=== PATIENT | male | born 1985 | race Caucasian/White ===

== ENCOUNTER 2024-03-25 20:56 | Inpatient (IN) | payer OTHER, SELFPAY ==
--- NOTE | ~2024-03-25 | XR_ITS ---
EXAMINATION: XR ABDOMEN KUB CLINICAL INDICATION: distended abdomen, no BM in over 14 days COMPARISON: None available. TECHNIQUE: AP view of the abdomen. FINDINGS: The bowel gas pattern is normal with no evidence of ileus or obstruction. Large stool burden overall. No unusual soft tissue calcifications are noted. The bones are unremarkable. Visualized lung bases are clear. XR/XR KUB IMPRESSION: Large stool burden overall. Electronically signed by: Corin Escoto DO 04/25/2024 07:31 PM EST
[2024-03-25 22:16] VITALS: BMI 25.4
--- NOTE | 2024-03-26 00:56 | PC.ADMIT ---
Randall was admitted from [facility] for schizoaffective D/O and not caring for himself. His mother had brought him to the hospital for poor hygiene X's 1 year, a possible skin infection and non-compliance with medications. His mother, Chio Schultz, is listed as his legal guardian. Guardianship documentation is located in the patients chart. patient is alert and oriented X's 3 but has no insight as to the need to admission. Randall arrived on the unit and stated that he required a wheelchair or a walker because he can't walk . Patient ambulating very hunched over while leaning against the wall for support. Randall stated that he is walking like this because he is afraid he is going to fall and sustain a head injury. Randall was unable to accept redirection regarding safe ambulation. He repeatedly stated that if he wlks like this he is closer to the ground so if he falls he wont get hurt. when patient given a walker he declined it stating that he was afraid he would fall sideways. Randall is noted to have dry peeling flaky skin on his bilateral arms and trunk. He is noted to also have a large thick plaque to bilateral shins. patient oriented to unit, admission completed, patient placed on 15 minute safety checks
[2024-03-26 08:00] VITALS: BP 115/77; PULSE 78; RESP 16; TEMP 36.7; O2SAT 98
--- NOTE | 2024-03-26 08:58 | P.HPPS_ITS ---
HPI Date of Service: 03/26/24 Chief Complaint: Schizophrenia HPI Narrative: per outside hospital psychiatric evaluation, pt presented to the hospital 03/17 for inability to care of self due to paranoia/mental illness. pt's mother is his legal guardian, collateral was collected from her. she reported pt has not bathed in over a year; he remains in a single room in the house, never leaving it; he will not use the bathroom but rather defecates in bags and urinates in containers that mother must remove from the room; very poor PO intake with substantial weight loss. pt reported to hospital staff that he eats and drinks little, that he has not showered in over a year; that he cleans himself with soap and wet paper towels; that he hears voices telling him he's being poisoned. he reported to hospital staff that he has not been eating much in the past couple of weeks due to fear of being poisoned; he reported he has not showered in the past year because he does not feel it is safe; he reported he takes medication at home despite collateral from his mother indicating otherwise. per report, pt had been prescribed risperidone in the ED from the but was noted to be diverting it; he was observed more closely at administration times thereafter and better compliance was believed to have taken place. on interview with MD, pt averred his fear of being poisoned, as well as his fear that something ill might befall him in the shower, as well as his fear that he might fall when walking. he expressed some concern about side effects from the risperidone, but also indicated a willingness to take it. he reported difficulty in taking pills and expressed interest in M-tabs or solution. he stated he did not wish to be in the hospital and voiced no small irritation at the fact of his admission. MD indicated risperidone would be prescribed for now. Past Psychiatric History: hops: numerous prior no outpt providers no known h/o SA or SIB Dx: schizophrenia, OCD, agoraphobia Medical Evaluation Reviewed: Hospitalist Jeannie Pending [facility] Narrative: h/o left wrist Fx B/L LE lymphedema Social History: lives in his mother's home. not employed, single, never , no children. Substance History: denies all Diagnostics Vital Signs (24Hr): Vital Signs - 24 hr 03/26/24 08:00 Temperature 98.0 F Pulse Rate 78 Respiratory Rate 16 Blood Pressure 115/77 Pulse Oximetry 98 Oxygen Delivery Method Room Air BMI result Body Mass Index 25.4 Meds/Allergies Allergies Allergies Allergy/AdvReac Type Severity Reaction Status Date / Time Unable to Assess Allergy Verified 03/25/24 21:15 Mental Status Exam Mental Status Exam Narrative: unkempt, plaques on forearms, hair and franco overgrown and in disarray. [facility]. cooperative. no PMA/PMR. speech nml rate, amount, loudness, tone, latency. thoughts linear and illogical, paranoid delusions present. affect blunted, normo-intense, non-labile. mood mixed. denies SI/HI/VH. endorses hearing narrative content related to his life. Assessment & Plan Assessment & Plan (1) Schizophrenia: Status: Acute Code(s): F20.9 - Schizophrenia, unspecified Plan risperidone /. collateral from mother clarify legal circumstance/rolando's order Patient educated on: medication risk/benefits Reason for continued inpatient stay Substantial Risk for: inability to function Statement Statement: I have reviewed the history and physical and performed a pertinent examination on my patient. No changes have occurred unless specified. If the History and Physical was not performed prior to admission, the Hospitalist's service will be consulted for completing the admission physical. Time Spent With Patient Time: Total time managing care of this patient today __55__ minutes.
--- NOTE | 2024-03-26 11:55 | P.HPHOSP_ITS ---
History of Present Illness Date of Service: 03/26/24 Attending physician on admission: Madhu Rodriguez Chief Complaint: Limited function Randall Garcia is a 38 years old man with no significant past medical history has been admitted to the psychiatric unit due to paranoid behavior. Patient stated that he does not take daily medications other than risperdal for schizoaffective disorder and paranoia. He stated that his mom called the ambulance because she noted that he was not functioning well. He reported poor appetite. Did not report significant weight loss. He did not report any headache, chest pain, shortness on breath, abdominal pain, nausea, vomiting or diarrhea. There is no fevers chills reported. He does have chronic lower extremity swelling associated with scaly rash. He has been evaluated for DVT and has been negative. He has been told before that he might have psoriasis. He denied history of surgeries. Denied tobacco smoking, alcohol abuse or illicit drug use. Review of Systems 2 Review of Systems: All 12 systems were reviewed and normal except as noted in HPI. [facility] Social History Household Members: Family Housing: House Do you presently have visiting nurse or other home services: No Patient Tobacco Use Status: Never used Tobacco Use of substances other than those prescribed or required for medical reasons: No Have you been hit, kicked, punched, or otherwise hurt by someone within the past year? If so, by whom?: No Do you feel safe in your current relationship?: No Is there a partner from a previous relationship who is making you feel unsafe now?: No Are you made to feel afraid or neglected: No Advance Directives: No Advance Directives Information Provided: No How much weight loss: 2-13 pounds Eating poorly because of decreased appetite: Yes Poor oral hygiene: Yes Meds Allergies Allergy/AdvReac Type Severity Reaction Status Date / Time Unable to Assess Allergy Verified 03/25/24 21:15 Active Medications: Current Medications Acetaminophen (Acetaminophen 325 Mg Tablet) 650 mg PO Q6H PRN PRN Reason: Headache/Pain Mild Scale (1-3) Al Hydroxide/Mg Hydroxide (Magnesium Hydrox/Alum Hydrox 30 Ml Oral.Susp) 30 ml PO Q6H PRN PRN Reason: Heartburn/Nausea Hydroxyzine HCl (Hydroxyzine Hcl 25 Mg Tablet) 25 mg PO Q6H PRN PRN Reason: Anxiety Magnesium Hydroxide (Milk Of Magnesia 30 Ml Oral.Susp) 30 ml PO DAILY PRN PRN Reason: Constipation Metoprolol Succinate (Metoprolol Succinate Er 25 Mg Tab.Er.24h) 75 mg PO DAILY LENI; Protocol Nicotine Polacrilex (Nicotine Polacrilex 2 Mg Gum) 4 mg BUCCAL Q2H PRN PRN Reason: Nicotine Cravings Trazodone HCl (Trazodone Hcl 50 Mg Tablet) 50 mg PO BEDTIME MRX1 PRN PRN Reason: Insomnia Physical Exam 2 Vital Signs and Narrative: Vital Signs: Last Vital Signs Temp 98.0 F 03/26/24 08:00 Pulse 78 03/26/24 08:00 Resp 16 03/26/24 08:00 BP 115/77 03/26/24 08:00 Pulse Ox 98 03/26/24 08:00 O2 Del Method Room Air 03/26/24 08:00 BMI result Body Mass Index 25.4 Constitutional - Awake and Alert, No apparent distress. Pleasant. Cooperative. HEENT - PER, EOMI Heart - S1S2, RRR, No murmurs. Lungs - Normal lung expansion, Normal respiratory effort, No respiratory distress, CTA bilaterally Abdomen - Nontenderness. Extremities: Musculoskeletal - Normal inspection, normal ROM Skin - No pallor. No jaundice. Neurological - Alert & oriented x3, CN III-XII in tact, 5/5 strength BUE and BLE Psychological - Depressed affect Assessment and Plan (1) Scaly skin on examination: Status: Acute (2) Lower extremity edema: Status: Acute (3) Generalized weakness: Status: Acute Plan Randall Garcia is a 38 y/o man presents with: * Paranoia. Treatment per Psychiatry. * Lower extremity chronic edema and scaly skin changes, suspecting psoriasis. Check lower extremity venous ultrasound to assess for DVT, if normal we recommend follow as an outpatient with PCP for further treatment and investigation. * Generalized weakness associated with poor appetite. Check CBC, CMP, TSH and vitamin B12. Physiotherapy evaluation. Quality Stroke Does the patient have a stroke diagnosis?: No VTE Prior VTE?: No VTE Risk Level:: Medical - low VTE Device Contraindication: Treatment Not Indicated VTE Drug Contraindication: Treatment Not Indicated
[2024-03-26 19:51] VITALS: BP 115/80; PULSE 106; RESP 16; TEMP 36.7; O2SAT 96
[2024-03-27 08:00] VITALS: BP 125/80; PULSE 85; RESP 14; TEMP 36.5; O2SAT 98
--- NOTE | 2024-03-27 17:43 | HO.PSYCHPN ---
Subjective Subjective Date of Service: 03/27/24 Reason For Visit: Schizophrenia Subjective Notes: Costa Warning Interim History: does not appear to have moved from his chair in the milieu. MD inquires about this and needing to use the toilet; pt reports he has urinated in a cup which he has under his blanket. repeatedly states he wishes to be discharged home, where he will be more comfortable and more likely to eat and take medication and go to the bathroom to relieve himself (all contradicted by collateral in the admissions information). MD informs him he will be staying for further assessment.per staff, feeling congested. terrified of falling and hitting his head. refusing labs. refusing U/S. in same chair in milieu all NOC, slept in the chair about 1 hour. refusing medications. Mental Status Exam Mental Status Exam Narrative: unkempt, plaques on forearms, hair and franco overgrown and in disarray. [facility]. cooperative. no PMA/PMR. speech nml rate, amount, loudness, tone, latency. thoughts linear and illogical, paranoid delusions present. affect blunted, normo-intense, non-labile. mood anxious. no SI/HI/AVH expressed. Diagnostics Vital Signs (24Hr): Vital Signs - 24 hr 03/26/24 19:51 03/27/24 08:00 Temperature 98.0 F 97.7 F Pulse Rate 106 H 85 Respiratory Rate 16 14 Blood Pressure 115/80 125/80 Pulse Oximetry 96 98 Oxygen Delivery Method Room Air Room Air BMI result Body Mass Index 25.4 Medications Medications Current Medications Acetaminophen (Acetaminophen 325 Mg Tablet) 650 mg PO Q6H PRN PRN Reason: Headache/Pain Mild Scale (1-3) Al Hydroxide/Mg Hydroxide (Magnesium Hydrox/Alum Hydrox 30 Ml Oral.Susp) 30 ml PO Q6H PRN PRN Reason: Heartburn/Nausea Hydroxyzine HCl (Hydroxyzine Hcl 25 Mg Tablet) 25 mg PO Q6H PRN PRN Reason: Anxiety Magnesium Hydroxide (Milk Of Magnesia 30 Ml Oral.Susp) 30 ml PO DAILY PRN PRN Reason: Constipation Nicotine Polacrilex (Nicotine Polacrilex 2 Mg Gum) 4 mg BUCCAL Q2H PRN PRN Reason: Nicotine Cravings Risperidone (Risperidone Oral Kami 1 Mg/Ml Solution) 2 mg PO BEDTIME LENI Risperidone (Risperidone Oral Kami 1 Mg/Ml Solution) 1 mg PO DAILY LENI Last Admin: 03/27/24 08:41 Dose: Not Given Trazodone HCl (Trazodone Hcl 50 Mg Tablet) 50 mg PO BEDTIME MRX1 PRN PRN Reason: Insomnia Allergies Allergies Allergy/AdvReac Type Severity Reaction Status Date / Time Unable to Assess Allergy Verified 03/25/24 21:15 Assessment & Plan Assessment & Plan (1) Schizophrenia: Status: Acute Code(s): F20.9 - Schizophrenia, unspecified Plan 03/26: risperidone /2. collateral from mother. clarify legal circumstance/rolando's order. 03/27: refusing meds, not leaving his chair. urinating in cup beneath blanket. requesting immediate discharge. continue to offer medication. clarify legal circumstance and ability to involuntarily administer medication. costa warning provided. Reason for continued inpatient stay Substantial Risk for: inability to function and med/psych decompensation Time Spent With Patient Time: Total time managing care of this patient today ____ minutes.
[2024-03-27 21:02] VITALS: BP 126/82; PULSE 107; RESP 16; TEMP 36.6; O2SAT 99
[2024-03-28] MEDS: risperiDONE 1 MG TABLET PO (11:55)
--- NOTE | 2024-03-28 16:32 | HO.PSYCHPN ---
Subjective Subjective Date of Service: 03/28/24 Reason For Visit: Schizophrenia Subjective Notes: 3 Day Interim History: Sitting in chair in milieu. Per nursing, patient urinating in cups under blankets. Patient was notified that he must go to his room to use the toilet and can not urinate in common areas. Patient was able to walk down unit hallway with no assistance. Patient is requesting to have a wheelchair d/t being terrified of falling . Patient stated, I do not have any kind of condition. I am just worried about falling . Patient reports that he has not been eating much due to fear of being poisoned however, he would not elaborate as to who he believes is poisoning him. He reports at home he has been urinating in milk cartons and defecating in trash bags and having his mother dispose of these items. Patient agreed to take 1 mg of Risperdal PO; however, expressed paranoia towards RN about being a different medication/dosage despite being shown packaging. T/W obtained information from patient's mother, Chio; Chio reports patient has not been using the toilet for the past two years due to being afraid that snakes will get him and voices telling him the same. Chio reports, pt is also afraid of walking d/t fear of hitting his head. She reports patient has never been on antipsychotics and has only taken anti-anxiety medications for 3 weeks which patient discontinued. She denies history of inpatient psychiatric hospitalizations. She reports having guardianship due to patient being unable to care for self. Medication Compliance: Intermittent Side effects from medications: No Attending Groups: Intermittent Review of Systems Constitutional: Reports as per HPI Eyes: Reports as per HPI Reports as per HPI Cardiovascular: Reports as per HPI Respiratory: Reports as per HPI Gastrointestinal: Reports as per HPI Genitourinary: Reports as per HPI Musculoskeletal: Reports as per HPI Skin/Breast: Reports as per HPI Reports as per HPI Psychiatric: Reports as per HPI Endocrine: Reports as per HPI Hematologic/Lymphatic: Reports as per HPI Allergic/Immunologic: Reports as per HPI Mental Status Exam Mental Status Exam Patient Appearance: Disheveled Patient Orientation: Person, Place, Time and Situation Level of Consciousness: Awake and Alert Patient Behavior: Guarded and Good Eye Contact Mood Description: Blunted Affect Description: Blunted Ability to Follow Directions: Good Speech Pattern: Clear Delusions: Paranoid Ideation Judgement: Poor Diagnostics Vital Signs (24Hr): Vital Signs - 24 hr 03/27/24 21:02 Temperature 97.8 F Pulse Rate 107 H Respiratory Rate 16 Blood Pressure 126/82 Pulse Oximetry 99 Oxygen Delivery Method Room Air BMI result Body Mass Index 25.4 Medications Medications Current Medications Acetaminophen (Acetaminophen 325 Mg Tablet) 650 mg PO Q6H PRN PRN Reason: Headache/Pain Mild Scale (1-3) Al Hydroxide/Mg Hydroxide (Magnesium Hydrox/Alum Hydrox 30 Ml Oral.Susp) 30 ml PO Q6H PRN PRN Reason: Heartburn/Nausea Hydroxyzine HCl (Hydroxyzine Hcl 25 Mg Tablet) 25 mg PO Q6H PRN PRN Reason: Anxiety Magnesium Hydroxide (Milk Of Magnesia 30 Ml Oral.Susp) 30 ml PO DAILY PRN PRN Reason: Constipation Nicotine Polacrilex (Nicotine Polacrilex 2 Mg Gum) 4 mg BUCCAL Q2H PRN PRN Reason: Nicotine Cravings Risperidone (Risperidone Oral Kami 1 Mg/Ml Solution) 2 mg PO BEDTIME [facility] Last Admin: 03/27/24 21:00 Dose: Not Given Risperidone (Risperidone Oral Kami 1 Mg/Ml Solution) 1 mg PO DAILY [facility] Last Admin: 03/28/24 09:08 Dose: Not Given Trazodone HCl (Trazodone Hcl 50 Mg Tablet) 50 mg PO BEDTIME MRX1 PRN PRN Reason: Insomnia Allergies Allergies Allergy/AdvReac Type Severity Reaction Status Date / Time Unable to Assess Allergy Verified 03/25/24 21:15 Assessment & Plan Assessment & Plan (1) Schizophrenia: Status: Acute Code(s): F20.9 - Schizophrenia, unspecified Plan 03/26: risperidone 1/2. collateral from mother. clarify legal circumstance/rolando's order. 03/27: refusing meds, not leaving his chair. urinating in cup beneath blanket. requesting immediate discharge. continue to offer medication. clarify legal circumstance and ability to involuntarily administer medication. diamond warning provided. 03/28: Sitting in chair in milieu. Per nursing, patient urinating in cups under blankets. Patient was notified that he must go to his room to use the toilet and can not urinate in common areas. Patient was able to walk down unit hallway with no assistance. Patient is requesting to have a wheelchair d/t being terrified of falling . Patient stated, I do not have any kind of condition. I am just worried about falling . Patient reports that he has not been eating much due to fear of being poisoned however, he would not elaborate as to who he believes is poisoning him. He reports at home he has been urinating in milk cartons and defecating in trash bags and having his mother dispose of these items. Patient agreed to take 1 mg of Risperdal PO; however, expressed paranoia towards RN about being a different medication/dosage despite being shown packaging. T/W obtained information from patient's mother, Chio; Chio reports patient has not been using the toilet for the past two years due to being afraid that snakes will get him and voices telling him the same. Chio reports, pt is also afraid of walking d/t fear of hitting his head. She reports patient has never been on antipsychotics and has only taken anti-anxiety medications for 3 weeks which patient discontinued. She denies history of inpatient psychiatric hospitalizations. She reports having guardianship due to patient being unable to care for self. Patient educated on: diagnosis and medication risk/benefits Reason for continued inpatient stay Substantial Risk for: med/psych decompensation Time Spent With Patient Time: Total time managing care of this patient today _20___ minutes.
[2024-03-28 20:00] VITALS: BP 108/72; PULSE 100; RESP 16; TEMP 36.4; O2SAT 97
[2024-03-29 07:50] VITALS: BP 113/89; PULSE 90; RESP 16; TEMP 36.8; O2SAT 97
--- NOTE | 2024-03-29 10:29 | P.PNPSI_ITS ---
Subjective Subjective Date of Service: 03/29/24 Reason For Visit: Schizophrenia Subjective Notes: 3 Day Interim History: Observing pacing unit hallway, ambulating with no issue. Keeping to self. Covering self with blanket. Per nursing, pt slept in chair in milieu for 5 hours last night. Refused medications last night and this morning. Pt reports he does not want to sleep in a bed d/t feeling more vulnerable when laying down . Patient reports he does not want to go into the bathroom because he is paranoid that something might happen in there or someone might be waiting for me in there . Pt's 3 day up 03/30/24; he is requesting to be discharged home. Medication Compliance: No Attending Groups: No Review of Systems Constitutional: Reports as per HPI Eyes: Reports as per HPI Reports as per HPI Cardiovascular: Reports as per HPI Respiratory: Reports as per HPI Gastrointestinal: Reports as per HPI Genitourinary: Reports as per HPI Musculoskeletal: Reports as per HPI Skin/Breast: Reports as per HPI Reports as per HPI Psychiatric: Reports as per HPI Endocrine: Reports as per HPI Hematologic/Lymphatic: Reports as per HPI Allergic/Immunologic: Reports as per HPI Mental Status Exam Mental Status Exam Narrative: Pt is alert and oriented; behavior is guarded; dressed in hospital attire; mood is described as fine ; eye contact appropriate; Speech is normal rate, volume and not pressured; focused on discharge; paranoid; requesting to be discharged. Diagnostics Vital Signs (24Hr): Vital Signs - 24 hr 03/28/24 20:00 03/29/24 07:50 Temperature 97.5 F 98.3 F Pulse Rate 100 90 Respiratory Rate 16 16 Blood Pressure 108/72 113/89 Pulse Oximetry 97 97 Oxygen Delivery Method Room Air Room Air BMI result Body Mass Index 25.4 Medications Medications Current Medications Acetaminophen (Acetaminophen 325 Mg Tablet) 650 mg PO Q6H PRN PRN Reason: Headache/Pain Mild Scale (1-3) Al Hydroxide/Mg Hydroxide (Magnesium Hydrox/Alum Hydrox 30 Ml Oral.Susp) 30 ml PO Q6H PRN PRN Reason: Heartburn/Nausea Hydroxyzine HCl (Hydroxyzine Hcl 25 Mg Tablet) 25 mg PO Q6H PRN PRN Reason: Anxiety Magnesium Hydroxide (Milk Of Magnesia 30 Ml Oral.Susp) 30 ml PO DAILY PRN PRN Reason: Constipation Nicotine Polacrilex (Nicotine Polacrilex 2 Mg Gum) 4 mg BUCCAL Q2H PRN PRN Reason: Nicotine Cravings Risperidone (Risperidone Oral Kami 1 Mg/Ml Solution) 2 mg PO BEDTIME [facility] Last Admin: 03/28/24 23:12 Dose: Not Given Risperidone (Risperidone Oral Kami 1 Mg/Ml Solution) 1 mg PO DAILY [facility] Last Admin: 03/29/24 08:18 Dose: Not Given Trazodone HCl (Trazodone Hcl 50 Mg Tablet) 50 mg PO BEDTIME MRX1 PRN PRN Reason: Insomnia Allergies Allergies Allergy/AdvReac Type Severity Reaction Status Date / Time Unable to Assess Allergy Verified 03/25/24 21:15 Assessment & Plan Assessment & Plan (1) Schizophrenia: Status: Acute Code(s): F20.9 - Schizophrenia, unspecified Plan 03/26: risperidone /. collateral from mother. clarify legal circumstance/rolando's order. 03/27: refusing meds, not leaving his chair. urinating in cup beneath blanket. requesting immediate discharge. continue to offer medication. clarify legal circumstance and ability to involuntarily administer medication. diamond warning provided. 03/28: Sitting in chair in milieu. Per nursing, patient urinating in cups under blankets. Patient was notified that he must go to his room to use the toilet and can not urinate in common areas. Patient was able to walk down unit hallway with no assistance. Patient is requesting to have a wheelchair d/t being terrified of falling . Patient stated, I do not have any kind of condition. I am just worried about falling . Patient reports that he has not been eating much due to fear of being poisoned however, he would not elaborate as to who he believes is poisoning him. He reports at home he has been urinating in milk cartons and defecating in trash bags and having his mother dispose of these items. Patient agreed to take 1 mg of Risperdal PO; however, expressed paranoia towards RN about being a different medication/dosage despite being shown packaging. T/W obtained information from patient's mother, Chio; Chio reports patient has not been using the toilet for the past two years due to being afraid that snakes will get him and voices telling him the same. Chio reports, pt is also afraid of walking d/t fear of hitting his head. She reports patient has never been on antipsychotics and has only taken anti-anxiety medications for 3 weeks which patient discontinued. She denies history of inpatient psychiatric hospitalizations. She reports having guardianship due to patient being unable to care for self. 03/29: Observing pacing unit hallway. Keeping to self. Covering self with blanket. Per nursing, pt slept in chair in milieu for 5 hours last night. Refused medications last night and this morning. Pt reports he does not want to sleep in a bed d/t feeling more vulnerable when laying down . Patient reports he does not want to go into the bathroom because he is paranoid that something might happen in there or someone might be waiting for me in there . Pt's 3 day up 03/30/24; he is requesting to be discharged home. Patient educated on: diagnosis and medication risk/benefits Reason for continued inpatient stay Substantial Risk for: med/psych decompensation Time Spent With Patient Time: Total time managing care of this patient today _30___ minutes.
[2024-03-29 20:00] VITALS: RESP 16; TEMP 36.4
[2024-03-30 08:00] VITALS: BP 119/87; PULSE 100; RESP 16; TEMP 36.1; O2SAT 100
--- NOTE | 2024-03-30 09:03 | HO.PSYCHPN ---
Subjective Subjective Date of Service: 03/30/24 Reason For Visit: Schizophrenia Subjective Notes: 3 Day Interim History: Observed standing at nurses station throughout shift; not taking redirection from staff to please step away for pt confidentiality. Argumentative. 3 day up today; filed on; pt notified. Pt stated, you can't keep me here. I'm going to jose you and make your head spin 3 times! Your documents are not real! Refused Zyprexa. Per nursing, pt urinated in carton in unit hallway;continues to refuse utilizing bathroom. Per nursing, pt did not eat anything today. Medication Compliance: No Attending Groups: No Review of Systems Constitutional: Reports as per HPI Eyes: Reports as per HPI Reports as per HPI Cardiovascular: Reports as per HPI Respiratory: Reports as per HPI Gastrointestinal: Reports as per HPI Genitourinary: Reports as per HPI Musculoskeletal: Reports as per HPI Skin/Breast: Reports as per HPI Reports as per HPI Psychiatric: Reports as per HPI Endocrine: Reports as per HPI Hematologic/Lymphatic: Reports as per HPI Allergic/Immunologic: Reports as per HPI Mental Status Exam Mental Status Exam Narrative: Pt is alert and oriented; behavior is guarded; dressed in hospital attire, malodorous, urinating in carton in mileu; mood is described as fine ; eye contact appropriate; Speech is normal rate, volume and not pressured; focused on discharge; paranoid; requesting to be discharged. Diagnostics Vital Signs (24Hr): Vital Signs - 24 hr 03/29/24 20:00 03/30/24 08:00 Temperature 97.6 F 97 F Pulse Rate 100 Respiratory Rate 16 16 Blood Pressure 119/87 Pulse Oximetry 100 Oxygen Delivery Method Room Air BMI result Body Mass Index 25.4 Medications Medications Current Medications Acetaminophen (Acetaminophen 325 Mg Tablet) 650 mg PO Q6H PRN PRN Reason: Headache/Pain Mild Scale (1-3) Al Hydroxide/Mg Hydroxide (Magnesium Hydrox/Alum Hydrox 30 Ml Oral.Susp) 30 ml PO Q6H PRN PRN Reason: Heartburn/Nausea Hydroxyzine HCl (Hydroxyzine Hcl 25 Mg Tablet) 25 mg PO Q6H PRN PRN Reason: Anxiety Magnesium Hydroxide (Milk Of Magnesia 30 Ml Oral.Susp) 30 ml PO DAILY PRN PRN Reason: Constipation Nicotine Polacrilex (Nicotine Polacrilex 2 Mg Gum) 4 mg BUCCAL Q2H PRN PRN Reason: Nicotine Cravings Risperidone (Risperidone Oral Kami 1 Mg/Ml Solution) 2 mg PO BEDTIME [facility] Last Admin: 03/29/24 20:07 Dose: Not Given Risperidone (Risperidone Oral Kami 1 Mg/Ml Solution) 1 mg PO DAILY [facility] Last Admin: 03/30/24 08:38 Dose: Not Given Trazodone HCl (Trazodone Hcl 50 Mg Tablet) 50 mg PO BEDTIME MRX1 PRN PRN Reason: Insomnia Allergies Allergies Allergy/AdvReac Type Severity Reaction Status Date / Time Unable to Assess Allergy Verified 03/25/24 21:15 Assessment & Plan Assessment & Plan (1) Schizophrenia: Status: Acute Code(s): F20.9 - Schizophrenia, unspecified Plan 03/26: risperidone /. collateral from mother. clarify legal circumstance/rolando's order. 03/27: refusing meds, not leaving his chair. urinating in cup beneath blanket. requesting immediate discharge. continue to offer medication. clarify legal circumstance and ability to involuntarily administer medication. diamond warning provided. 03/28: Sitting in chair in milieu. Per nursing, patient urinating in cups under blankets. Patient was notified that he must go to his room to use the toilet and can not urinate in common areas. Patient was able to walk down unit hallway with no assistance. Patient is requesting to have a wheelchair d/t being terrified of falling . Patient stated, I do not have any kind of condition. I am just worried about falling . Patient reports that he has not been eating much due to fear of being poisoned however, he would not elaborate as to who he believes is poisoning him. He reports at home he has been urinating in milk cartons and defecating in trash bags and having his mother dispose of these items. Patient agreed to take 1 mg of Risperdal PO; however, expressed paranoia towards RN about being a different medication/dosage despite being shown packaging. T/W obtained information from patient's mother, Chio; Chio reports patient has not been using the toilet for the past two years due to being afraid that snakes will get him and voices telling him the same. Chio reports, pt is also afraid of walking d/t fear of hitting his head. She reports patient has never been on antipsychotics and has only taken anti-anxiety medications for 3 weeks which patient discontinued. She denies history of inpatient psychiatric hospitalizations. She reports having guardianship due to patient being unable to care for self. 03/29: Observing pacing unit hallway. Keeping to self. Covering self with blanket. Per nursing, pt slept in chair in milieu for 5 hours last night. Refused medications last night and this morning. Pt reports he does not want to sleep in a bed d/t feeling more vulnerable when laying down . Patient reports he does not want to go into the bathroom because he is paranoid that something might happen in there or someone might be waiting for me in there . Pt's 3 day up 03/30/24; he is requesting to be discharged home. 03/30: Observed standing at nurses station throughout shift; not taking redirection from staff to please step away for pt confidentiality. Argumentative. 3 day up today; filed on; pt notified. Pt stated, you can't keep me here. I'm going to jose you and make your head spin 3 times! Your documents are not real! Refused Zyprexa. Per nursing, pt urinated in carton in unit hallway;continues to refuse utilizing bathroom. Per nursing, pt did not eat anything today. Patient educated on: medication risk/benefits Reason for continued inpatient stay Substantial Risk for: med/psych decompensation Time Spent With Patient Time: Total time managing care of this patient today _30___ minutes.
--- NOTE | 2024-03-30 09:04 | PC.NURSE ---
Randall refused AM Risperidal, Susan Elias NP made aware
[2024-03-30 20:00] VITALS: BP 113/71; PULSE 121; RESP 16; TEMP 36.5; O2SAT 97
[2024-03-31 07:00] VITALS: BMI 25.4
[2024-03-31 07:43] VITALS: BP 112/76; PULSE 89; RESP 14; TEMP 36.6; O2SAT 98
--- NOTE | 2024-03-31 08:03 | HO.PSYCHPN ---
Subjective Subjective Date of Service: 03/31/24 Reason For Visit: Schizophrenia Subjective Notes: Section 7 Interim History: Reviewed with Dr. Lorenzana. Pacing in front of nurses station. disheveled, malodorous; encouraged to shower, however pt declined despite being offered shower chair and staff member to wait outside shower room if assistance is needed. Per nursing, pt urinated in cup and sensory room floor last evening. Pt continues to report paranoia regarding using bathroom; pt stated, I'm worried someone will be in the bathroom waiting for me because of who I am . When asked why he believes someone would want to hurt him; pt stated, I can't discuss that . denies SI/HI/VH/AH. He reports not eating d/t concerns that he may be poisoned by someone ; observed drinking water from water bottle. Pt offered Zyprexa PO per court ordered treatment plan; per nursing, pt initially refused then agreed to take. Medication Compliance: Intermittent Attending Groups: No Review of Systems Constitutional: Reports as per HPI Eyes: Reports as per HPI Reports as per HPI Cardiovascular: Reports as per HPI Respiratory: Reports as per HPI Gastrointestinal: Reports as per HPI Genitourinary: Reports as per HPI Musculoskeletal: Reports as per HPI Skin/Breast: Reports as per HPI Reports as per HPI Psychiatric: Reports as per HPI Endocrine: Reports as per HPI Hematologic/Lymphatic: Reports as per HPI Allergic/Immunologic: Reports as per HPI Mental Status Exam Mental Status Exam Narrative: Pt is alert and oriented; behavior is guarded; dressed in hospital attire, malodorous, urinating in carton in mileu; mood is described as fine ; eye contact appropriate; Speech is normal rate, volume and not pressured; focused on discharge; paranoid; requesting to be discharged. Diagnostics Vital Signs (24Hr): Vital Signs - 24 hr 03/30/24 20:00 03/31/24 07:43 Temperature 97.7 F 97.9 F Pulse Rate 121 H 89 Respiratory Rate 16 14 Blood Pressure 113/71 112/76 Pulse Oximetry 97 98 Oxygen Delivery Method Room Air Room Air BMI result Body Mass Index 25.4 Medications Medications Current Medications Acetaminophen (Acetaminophen 325 Mg Tablet) 650 mg PO Q6H PRN PRN Reason: Headache/Pain Mild Scale (1-3) Al Hydroxide/Mg Hydroxide (Magnesium Hydrox/Alum Hydrox 30 Ml Oral.Susp) 30 ml PO Q6H PRN PRN Reason: Heartburn/Nausea Hydroxyzine HCl (Hydroxyzine Hcl 25 Mg Tablet) 25 mg PO Q6H PRN PRN Reason: Anxiety Magnesium Hydroxide (Milk Of Magnesia 30 Ml Oral.Susp) 30 ml PO DAILY PRN PRN Reason: Constipation Nicotine Polacrilex (Nicotine Polacrilex 2 Mg Gum) 4 mg BUCCAL Q2H PRN PRN Reason: Nicotine Cravings Olanzapine (Olanzapine Odt 10 Mg Tab.Rapdis) 10 mg TRANSLINGU DAILY [facility] Last Admin: 03/30/24 10:42 Dose: Not Given Trazodone HCl (Trazodone Hcl 50 Mg Tablet) 50 mg PO BEDTIME MRX1 PRN PRN Reason: Insomnia Allergies Allergies Allergy/AdvReac Type Severity Reaction Status Date / Time Unable to Assess Allergy Verified 03/25/24 21:15 Assessment & Plan Assessment & Plan (1) Schizophrenia: Status: Acute Code(s): F20.9 - Schizophrenia, unspecified Plan 03/26: risperidone /. collateral from mother. clarify legal circumstance/rolando's order. 03/27: refusing meds, not leaving his chair. urinating in cup beneath blanket. requesting immediate discharge. continue to offer medication. clarify legal circumstance and ability to involuntarily administer medication. diamond warning provided. 03/28: Sitting in chair in milieu. Per nursing, patient urinating in cups under blankets. Patient was notified that he must go to his room to use the toilet and can not urinate in common areas. Patient was able to walk down unit hallway with no assistance. Patient is requesting to have a wheelchair d/t being terrified of falling . Patient stated, I do not have any kind of condition. I am just worried about falling . Patient reports that he has not been eating much due to fear of being poisoned however, he would not elaborate as to who he believes is poisoning him. He reports at home he has been urinating in milk cartons and defecating in trash bags and having his mother dispose of these items. Patient agreed to take 1 mg of Risperdal PO; however, expressed paranoia towards RN about being a different medication/dosage despite being shown packaging. T/W obtained information from patient's mother, Chio; Chio reports patient has not been using the toilet for the past two years due to being afraid that snakes will get him and voices telling him the same. Chio reports, pt is also afraid of walking d/t fear of hitting his head. She reports patient has never been on antipsychotics and has only taken anti-anxiety medications for 3 weeks which patient discontinued. She denies history of inpatient psychiatric hospitalizations. She reports having guardianship due to patient being unable to care for self. 03/29: Observing pacing unit hallway. Keeping to self. Covering self with blanket. Per nursing, pt slept in chair in milieu for 5 hours last night. Refused medications last night and this morning. Pt reports he does not want to sleep in a bed d/t feeling more vulnerable when laying down . Patient reports he does not want to go into the bathroom because he is paranoid that something might happen in there or someone might be waiting for me in there . Pt's 3 day up 03/30/24; he is requesting to be discharged home. 03/30: Observed standing at nurses station throughout shift; not taking redirection from staff to please step away for pt confidentiality. Argumentative. 3 day up today; filed on; pt notified. Pt stated, you can't keep me here. I'm going to jose you and make your head spin 3 times! Your documents are not real! Refused Zyprexa. Per nursing, pt urinated in carton in unit hallway;continues to refuse utilizing bathroom. Per nursing, pt did not eat anything today. 03/31: Pacing in front of nurses station. disheveled, malodorous; encouraged to shower, however pt declined despite being offered shower chair and staff member to wait outside shower room if assistance is needed. Per nursing, pt urinated in cup and sensory room floor last evening. Pt continues to report paranoia regarding using bathroom; pt stated, I'm worried someone will be in the bathroom waiting for me because of who I am . When asked why he believes someone would want to hurt him; pt stated, I can't discuss that . denies SI/HI/VH/AH. He reports not eating d/t concerns that he may be poisoned by someone ; observed drinking water from water bottle. Pt offered Zyprexa PO per court ordered treatment plan; per nursing, pt initially refused then agreed to take. Patient educated on: diagnosis and medication risk/benefits Reason for continued inpatient stay Substantial Risk for: med/psych decompensation Time Spent With Patient Time: Total time managing care of this patient today _20___ minutes.
[2024-03-31] MEDS: OLANZapine ODT 10 MG TAB.RAPDIS TRANSLINGU (14:43)
[2024-04-01 07:05] VITALS: BP 115/72; PULSE 76; RESP 14; TEMP 36.4; O2SAT 100
--- NOTE | 2024-04-01 13:41 | P.PNPSI_ITS ---
Subjective Subjective Date of Service: 04/01/24 Reason For Visit: Schizophrenia Subjective Notes: Section 7 Interim History: Reviewed with Dr. Lorenzana. Patient continues to stand or pace in front of nurses station. disheveled, malodorous; per nursing, pt urinated in trash in mileu last evening. T/W spoke to patient regarding using restroom on unit; pt continues to report concern that someone can try to kill me because of who I am and who my family is ; when asked why someone would hurt him. Pt stated, because we are well known in [place] and they may hurt me because of it ; pt unable to specify who they are. denies AH/VH. Pt was offered for staff member to examine restroom and stand outside to assure no one is waiting for him; however pt continues to decline. Patient stated, I feel like you guys are playing a psychotic game with me or that they are doing this for their entertainment . Attending Groups: No Review of Systems Constitutional: Reports as per HPI Eyes: Reports as per HPI Reports as per HPI Cardiovascular: Reports as per HPI Respiratory: Reports as per HPI Gastrointestinal: Reports as per HPI Genitourinary: Reports as per HPI Musculoskeletal: Reports as per HPI Skin/Breast: Reports as per HPI Reports as per HPI Psychiatric: Reports as per HPI Endocrine: Reports as per HPI Hematologic/Lymphatic: Reports as per HPI Allergic/Immunologic: Reports as per HPI Mental Status Exam Mental Status Exam Narrative: Pt is alert and oriented; behavior is guarded; dressed in hospital attire, malodorous, urinating in trash in mileu; mood is described as not ok ; eye contact appropriate; Speech is normal rate, volume and not pressured; focused on discharge; paranoid; requesting to be discharged. Diagnostics Vital Signs (24Hr): Vital Signs - 24 hr 04/01/24 07:05 Temperature 97.5 F Pulse Rate 76 Respiratory Rate 14 Blood Pressure 115/72 Pulse Oximetry 100 Oxygen Delivery Method Room Air BMI result Body Mass Index 25.4 Medications Medications Current Medications Acetaminophen (Acetaminophen 325 Mg Tablet) 650 mg PO Q6H PRN PRN Reason: Headache/Pain Mild Scale (1-3) Al Hydroxide/Mg Hydroxide (Magnesium Hydrox/Alum Hydrox 30 Ml Oral.Susp) 30 ml PO Q6H PRN PRN Reason: Heartburn/Nausea Benztropine Mesylate (Benztropine Mesylate 1 Mg Tablet) 1 mg PO DAILY PRN PRN Reason: Extrapyramidal Effects Haloperidol Lactate (Haloperidol Lactate 5 Mg/Ml Vial) 5 mg IM DAILY PRN PRN Reason: Psychosis Hydroxyzine HCl (Hydroxyzine Hcl 25 Mg Tablet) 25 mg PO Q6H PRN PRN Reason: Anxiety Magnesium Hydroxide (Milk Of Magnesia 30 Ml Oral.Susp) 30 ml PO DAILY PRN PRN Reason: Constipation Nicotine Polacrilex (Nicotine Polacrilex 2 Mg Gum) 4 mg BUCCAL Q2H PRN PRN Reason: Nicotine Cravings Olanzapine (Olanzapine Odt 10 Mg Tab.Rapdis) 5 mg TRANSLINGU DAILY@1500 LENI Trazodone HCl (Trazodone Hcl 50 Mg Tablet) 50 mg PO BEDTIME MRX1 PRN PRN Reason: Insomnia Allergies Allergies Allergy/AdvReac Type Severity Reaction Status Date / Time Unable to Assess Allergy Verified 03/25/24 21:15 Assessment & Plan Assessment & Plan (1) Schizophrenia: Status: Acute Code(s): F20.9 - Schizophrenia, unspecified Plan 03/26: risperidone /. collateral from mother. clarify legal circumstance/rolando's order. 03/27: refusing meds, not leaving his chair. urinating in cup beneath blanket. requesting immediate discharge. continue to offer medication. clarify legal circumstance and ability to involuntarily administer medication. diamond warning provided. 03/28: Sitting in chair in milieu. Per nursing, patient urinating in cups under blankets. Patient was notified that he must go to his room to use the toilet and can not urinate in common areas. Patient was able to walk down unit hallway with no assistance. Patient is requesting to have a wheelchair d/t being terrified of falling . Patient stated, I do not have any kind of condition. I am just worried about falling . Patient reports that he has not been eating much due to fear of being poisoned however, he would not elaborate as to who he believes is poisoning him. He reports at home he has been urinating in milk car tons and defecating in trash bags and having his mother dispose of these items. Patient agreed to take 1 mg of Risperdal PO; however, expressed paranoia towards RN about being a different medication/dosage despite being shown packaging. T/W obtained information from patient's mother, Chio; Chio reports patient has not been using the toilet for the past two years due to being afraid that snakes will get him and voices telling him the same. Chio reports, pt is also afraid of walking d/t fear of hitting his head. She reports patient has never been on antipsychotics and has only taken anti-anxiety medications for 3 weeks which patient discontinued. She denies history of inpatient psychiatric hospitalizations. She reports having guardianship due to patient being unable to care for self. 03/29: Observing pacing unit hallway. Keeping to self. Covering self with blanket. Per nursing, pt slept in chair in milieu for 5 hours last night. Refused medications last night and this morning. Pt reports he does not want to sleep in a bed d/t feeling more vulnerable when laying down . Patient reports he does not want to go into the bathroom because he is paranoid that something might happen in there or someone might be waiting for me in there . Pt's 3 day up 03/30/24; he is requesting to be discharged home. 03/30: Observed standing at nurses station throughout shift; not taking redir ection from staff to please step away for pt confidentiality. Argumentative. 3 day up today; filed on; pt notified. Pt stated, you can't keep me here. I'm going to jose you and make your head spin 3 times! Your documents are not real! Refused Zyprexa. Per nursing, pt urinated in carton in unit hallway;continues to refuse utilizing bathroom. Per nursing, pt did not eat anything today. 03/31: Pacing in front of nurses station. disheveled, malodorous; encouraged to shower, however pt declined despite being offered shower chair and staff member to wait outside shower room if assistance is needed. Per nursing, pt urinated in cup and sensory room floor last evening. Pt continues to report paranoia regarding using bathroom; pt stated, I'm worried someone will be in the bathroom waiting for me because of who I am . When asked why he believes someone would want to hurt him; pt stated, I can't discuss that . denies SI/HI/VH/AH. He reports not eating d/t concerns that he may be poisoned by someone ; observed drinking water from water bottle. Pt offered Zyprexa PO per court ordered treatment plan; per nursing, pt initially refused then agreed to take. 04/01: Patient continues to stand or pace in front of nurses station. disheveled, malodorous; per nursing, pt urinated in trash in [place] last evening. T/W spoke to patient regarding using restroom on unit; pt continues to report concern that someone can try to kill me because of who I am and who my family is ; when asked why someone would hurt him. Pt stated, because we are well known in [place] and they may hurt me because of it ; pt unable to specify who they are. denies AH/VH. Pt was offered for staff member to examine restroom and stand outside to assure no one is waiting for him; however pt continues to decline. Patient stated, I feel like you guys are playing a psychotic game with me or that they are doing this for their entertainment . Patient educated on: diagnosis, medication risk/benefits and therapeutic strategies Reason for continued inpatient stay Substantial Risk for: med/psych decompensation Time Spent With Patient Time: Total time managing care of this patient today _20___ minutes.
--- NOTE | 2024-04-01 15:22 | PC.NURSE ---
TW approached pt at [address] ordered 5mg olanzapine. Pt states, I'm too sedated. I haven't even talked to anyone today. Do I have to take it? Pt educated on Vasquez Order w/ little effect. Pt asked to wait a little bit . TW told pt she would reappraoch him w/ medications at 1600 at which point the pt would have to accept PO medication or receive IM Haldol per court order. Pt nodded in agreement. Will reattempt medicatin administration at 1600.
--- NOTE | 2024-04-01 15:35 | PC.NURSE ---
pt is demanding to see Vasquez order before accepting medication. lawn sprinkler installer informed TW the pt made the same demand yesterday and a copy was previously shown to the patient and would not be done again. Pt will be reapproached at 4pm with medication.
[2024-04-01] MEDS: OLANZapine ODT 10 MG TAB.RAPDIS 5 MG TRANSLINGU (16:23)
--- NOTE | 2024-04-01 16:23 | PC.NURSE ---
pt approached with TW, electronic equipment repairer, and 2 security officers. Pt reluctantly accepted PO olanzapine per court order and was compliant with mouth check
[2024-04-01 20:00] VITALS: RESP 16
--- NOTE | 2024-04-01 21:50 | PM.EVENT ---
Event Note Date of Service: 04/02/24 Event Note: Pt is a [id number] admitted to [facility] unit with hospitalist consult placed for treatment of pt's dermatologic condition which is likely psoriasis, as pictured below. Would treat with ammonium lactate cream bid applied only to thick yellow plaques on lower extremities. This should soften up the plaques so that they slough off in the shower. For other skin lesions, would suggest betamethasone cream bid. Pt should follow up outpatient with dermatology for formal diagnosis and long-term treatment options. Time Spent With Patient Time: Total time managing care of this patient today ____ minutes.
[2024-04-02 08:00] VITALS: BP 103/68; PULSE 88; RESP 18; TEMP 36.4; O2SAT 100
[2024-04-02] MEDS: Betamethasone Dip Aug 0.05% Cr 15 GM TUBE 1 APPL TOPICAL (08:46)
--- NOTE | 2024-04-02 09:00 | P.PNPSI_ITS ---
Subjective Subjective Date of Service: 04/02/24 Reason For Visit: Schizophrenia Subjective Notes: Section 7 Interim History: Reviewed with Dr. Lorenzana. Patient continues to present similar to days prior. He continues to report paranoia regarding using restroom, shower and eating. Pt stated, I urinated in the trash early in the morning ; he continues to state he will consider using restroom. Pt reports taking bites of breakfast this morning. denies any side effects from Zyprexa other than feeling tired; pt stated, I am feeling a bit calmer . Per nursing, pt slept in chair in [facility] for 7 hours last night. Medication Compliance: Yes Side effects from medications: No Attending Groups: No Review of Systems Constitutional: Reports as per HPI Eyes: Reports as per HPI Reports as per HPI Cardiovascular: Reports as per HPI Respiratory: Reports as per HPI Gastrointestinal: Reports as per HPI Genitourinary: Reports as per HPI Musculoskeletal: Reports as per HPI Skin/Breast: Reports as per HPI Reports as per HPI Psychiatric: Reports as per HPI Endocrine: Reports as per HPI Hematologic/Lymphatic: Reports as per HPI Allergic/Immunologic: Reports as per HPI Mental Status Exam Mental Status Exam Narrative: Pt is alert and oriented; behavior is calm, guarded; dressed in hospital attire, malodorous, urinating in trash in [facility]; mood is described as calmer ; eye contact appropriate; Speech is normal rate, volume and not pressured; focused on discharge; paranoid; requesting to be discharged. Diagnostics Vital Signs (24Hr): Vital Signs - 24 hr 04/01/24 20:00 Respiratory Rate 16 BMI result Body Mass Index 25.4 Medications Medications Current Medications Acetaminophen (Acetaminophen 325 Mg Tablet) 650 mg PO Q6H PRN PRN Reason: Headache/Pain Mild Scale (1-3) Al Hydroxide/Mg Hydroxide (Magnesium Hydrox/Alum Hydrox 30 Ml Oral.Susp) 30 ml PO Q6H PRN PRN Reason: Heartburn/Nausea Benztropine Mesylate (Benztropine Mesylate 1 Mg Tablet) 1 mg PO DAILY PRN PRN Reason: Extrapyramidal Effects Betamethasone Dipropion Augmented (Betamethasone Dip Aug 0.05% Cr 15 Gm Tube) 1 appl TOPICAL BID LENI; Protocol Last Admin: 04/02/24 08:46 Dose: 1 appl Haloperidol Lactate (Haloperidol Lactate 5 Mg/Ml Vial) 5 mg IM DAILY PRN PRN Reason: Psychosis Hydroxyzine HCl (Hydroxyzine Hcl 25 Mg Tablet) 25 mg PO Q6H PRN PRN Reason: Anxiety Lactic Acid (Ammonium Lactate 12 % Cream 140 Gm Tube) 1 appl TOPICAL BID PRN; Protocol PRN Reason: Dry, scaly skin Magnesium Hydroxide (Milk Of Magnesia 30 Ml Oral.Susp) 30 ml PO DAILY PRN PRN Reason: Constipation Nicotine Polacrilex (Nicotine Polacrilex 2 Mg Gum) 4 mg BUCCAL Q2H PRN PRN Reason: Nicotine Cravings Olanzapine (Olanzapine Odt 10 Mg Tab.Rapdis) 5 mg TRANSLINGU DAILY@1500 LENI Last Admin: 04/01/24 16:23 Dose: 5 mg Trazodone HCl (Trazodone Hcl 50 Mg Tablet) 50 mg PO BEDTIME MRX1 PRN PRN Reason: Insomnia Allergies Allergies Allergy/AdvReac Type Severity Reaction Status Date / Time Unable to Assess Allergy Verified 03/25/24 21:15 Assessment & Plan Assessment & Plan (1) Schizophrenia: Status: Acute Code(s): F20.9 - Schizophrenia, unspecified Plan 03/26: risperidone 1/2. collateral from mother. clarify legal circumstance/rolando's order. 03/27: refusing meds, not leaving his chair. urinating in cup beneath blanket. requesting immediate discharge. continue to offer medication. clarify legal circumstance and ability to involuntarily administer medication. diamond warning provided. 03/28: Sitting in chair in milieu. Per nursing, patient urinating in cups under blankets. Patient was notified that he must go to his room to use the toilet and can not urinate in common areas. Patient was able to walk down unit hallway with no assistance. Patient is requesting to have a wheelchair d/t being terrified of falling . Patient stated, I do not have any kind of condition. I am just worried about falling . Patient reports that he has not been eating much due to fear of being poisoned however, he would not elaborate as to who he believes is poisoning him. He reports at home he has been urinating in milk cartons and defecating in trash bags and having his mother dispose of these items. Patient agreed to take 1 mg of Risperdal PO; however, expressed paranoia towards RN about being a different medication/dosage despite being shown packaging. T/W obtained information from patient's mother, Chio; Chio reports patient has not been using the toilet for the past two years due to being afraid that snakes will get him and voices telling him the same. Chio reports, pt is also afraid of walking d/t fear of hitting his head. She reports patient has never been on antipsychotics and has only taken anti-anxiety medications for 3 weeks which patient discontinued. She denies history of inpatient psychiatric hospitalizations. She reports having guardianship due to patient being unable to care for self. 03/29: Observing pacing unit hallway. Keeping to self. Covering self with blanket. Per nursing, pt slept in chair in milieu for 5 hours last night. R efused medications last night and this morning. Pt reports he does not want to sleep in a bed d/t feeling more vulnerable when laying down . Patient reports he does not want to go into the bathroom because he is paranoid that something might happen in there or someone might be waiting for me in there . Pt's 3 day up 03/30/24; he is requesting to be discharged home. 03/30: Observed standing at nurses station throughout shift; not taking redirection from staff to please step away for pt confidentiality. Argumentative. 3 day up today; filed on; pt notified. Pt stated, you can't keep me here. I'm going to jose you and make your head spin 3 times! Your documents are not real! Refused Zyprexa. Per nursing, pt urinated in carton in unit hallway;continues to refuse utilizing bathroom. Per nursing, pt did not eat anything today. 03/31: Pacing in front of nurses station. disheveled, malodorous; encouraged to shower, however pt declined despite being offered shower chair and staff member to wait outside shower room if assistance is needed. Per nursing, pt urinated in cup and sensory room floor last evening. Pt continues to report paranoia regarding using bathroom; pt stated, I'm worried someone will be in the bathroom waiting for me because of who I am . When asked why he believes someone would want to hurt him; pt stated, I can't discuss that . denies SI/HI/VH/AH. He reports not eating d/t concerns that he may be poisoned by someone ; observed drinking water from water bottle. Pt offered Zyprexa PO per court ordered treatment plan; per nursing, pt initially refused then agreed to take. 04/01: Patient continues to stand or pace in front of nurses station. disheveled, malodorous; per nursing, pt urinated in trash in [place] last evening. T/W spoke to patient regarding using restroom on unit; pt continues to report concern that someone can try to kill me because of who I am and who my family is ; when asked why someone would hurt him. Pt stated, because we are well known in [place] and they may hurt me because of it ; pt unable to specify who they are. denies AH/VH. Pt was offered for staff member to examine restroom and stand outside to assure no one is waiting for him; however pt continues to decline. Patient stated, I feel like you guys are playing a psychotic game with me or that they are doing this for their entertainment . 04/02: Patient continues to present similar to days prior. He continues to report paranoia regarding using restroom, shower and eating. Pt stated, I urinated in the trash early in the morning ; he continues to state he will co nsider using restroom. Pt reports taking bites of breakfast this morning. denies any side effects from Zyprexa other than feeling tired; pt stated, I am feeling a bit calmer . Per nursing, pt slept in chair in [facility] for 7 hours last night. Will continue to build rapport. Patient educated on: diagnosis, medication risk/benefits and therapeutic strategies Reason for continued inpatient stay Substantial Risk for: med/psych decompensation Time Spent With Patient Time: Total time managing care of this patient today _20___ minutes.
[2024-04-02] MEDS: OLANZapine ODT 10 MG TAB.RAPDIS 5 MG TRANSLINGU (15:54)
[2024-04-02 21:00] VITALS: BP 104/74; PULSE 72; RESP 16; TEMP 36.4; O2SAT 100
--- NOTE | 2024-04-03 09:16 | P.PNPSI_ITS ---
Subjective Subjective Date of Service: 04/03/24 Reason For Visit: Schizophrenia Subjective Notes: Section 7 Interim History: Reviewed with Dr. Lorenzana. Patient continues to report paranoia regarding using restroom, shower and eating. Pt was offered single room d/t continuous urinating in [facility]; pt declined. Pt stated, I don't think a single room would help. I'm still having the same thoughts . Pt reports he has increased his fluid intake with water, juice and milk; however he continues to report only take a few bites of food. Medication Compliance: Intermittent Side effects from medications: No Attending Groups: No Review of Systems Constitutional: Reports as per HPI Eyes: Reports as per HPI Reports as per HPI Cardiovascular: Reports as per HPI Respiratory: Reports as per HPI Gastrointestinal: Reports as per HPI Genitourinary: Reports as per HPI Musculoskeletal: Reports as per HPI Skin/Breast: Reports as per HPI Reports as per HPI Psychiatric: Reports as per HPI Endocrine: Reports as per HPI Hematologic/Lymphatic: Reports as per HPI Allergic/Immunologic: Reports as per HPI Mental Status Exam Mental Status Exam Narrative: Pt is alert and oriented; behavior is calm, guarded; dressed in hospital attire, malodorous, urinating in trash in [facility]; mood is described as okay ; eye contact appropriate; Speech is normal rate, volume and not pressured; focused on discharge; paranoid; requesting to be discharged. Diagnostics Vital Signs (24Hr): Vital Signs - 24 hr 04/02/24 21:00 Temperature 97.5 F Pulse Rate 72 Respiratory Rate 16 Blood Pressure 104/74 Pulse Oximetry 100 Oxygen Delivery Method Room Air BMI result Body Mass Index 25.4 Medications Medications Current Medications Acetaminophen (Acetaminophen 325 Mg Tablet) 650 mg PO Q6H PRN PRN Reason: Headache/Pain Mild Scale (1-3) Al Hydroxide/Mg Hydroxide (Magnesium Hydrox/Alum Hydrox 30 Ml Oral.Susp) 30 ml PO Q6H PRN PRN Reason: Heartburn/Nausea Benztropine Mesylate (Benztropine Mesylate 1 Mg Tablet) 1 mg PO DAILY PRN PRN Reason: Extrapyramidal Effects Betamethasone Dipropion Augmented (Betamethasone Dip Aug 0.05% Cr 15 Gm Tube) 1 appl TOPICAL BID LENI; Protocol Last Admin: 04/02/24 23:43 Dose: Not Given Haloperidol Lactate (Haloperidol Lactate 5 Mg/Ml Vial) 5 mg IM DAILY PRN PRN Reason: Psychosis Hydroxyzine HCl (Hydroxyzine Hcl 25 Mg Tablet) 25 mg PO Q6H PRN PRN Reason: Anxiety Lactic Acid (Ammonium Lactate 12 % Cream 140 Gm Tube) 1 appl TOPICAL BID PRN; Protocol PRN Reason: Dry, scaly skin Magnesium Hydroxide (Milk Of Magnesia 30 Ml Oral.Susp) 30 ml PO DAILY PRN PRN Reason: Constipation Nicotine Polacrilex (Nicotine Polacrilex 2 Mg Gum) 4 mg BUCCAL Q2H PRN PRN Reason: Nicotine Cravings Olanzapine (Olanzapine Odt 10 Mg Tab.Rapdis) 5 mg TRANSLINGU DAILY@1500 LENI Last Admin: 04/02/24 15:54 Dose: 5 mg Trazodone HCl (Trazodone Hcl 50 Mg Tablet) 50 mg PO BEDTIME MRX1 PRN PRN Reason: Insomnia Allergies Allergies Allergy/AdvReac Type Severity Reaction Status Date / Time Unable to Assess Allergy Verified 03/25/24 21:15 Assessment & Plan Assessment & Plan (1) Schizophrenia: Status: Acute Code(s): F20.9 - Schizophrenia, unspecified Plan 03/26: risperidone /. collateral from mother. clarify legal circumstance/ro simon's order. 03/27: refusing meds, not leaving his chair. urinating in cup beneath blanket. requesting immediate discharge. continue to offer medication. clarify legal circumstance and ability to involuntarily administer medication. diamond warning provided. 03/28: Sitting in chair in milieu. Per nursing, patient urinating in cups under blankets. Patient was notified that he must go to his room to use the toilet and can not urinate in common areas. Patient was able to walk down unit hallway with no assistance. Patient is requesting to have a wheelchair d/t being terrified of falling . Patient stated, I do not have any kind of condition. I am just worried about falling . Patient reports that he has not been eating much due to fear of being poisoned however, he would not elaborate as to who he believes is poisoning him. He reports at home he has been urinating in milk cartons and defecating in trash bags and having his mother dispose of these items. Patient agreed to take 1 mg of Risperdal PO; however, expressed paranoia towards RN about being a different medication/dosage despite being shown packaging. T/W obtained information from patient's mother, Chio; Chio reports patient has not been using the toilet for the past two years due to being afraid that snakes will get him and voices telling him the same. Chio reports, pt is also afraid of walking d/t fear of hitting his head. She reports patient has never been on antipsychotics and has only taken anti-anxiety medications for 3 weeks which patient discontinued. She denies history of inpatient psychiatric hospitalizations. She reports having guardianship due to patient being unable to care for self. 03/29: Observing pacing unit hallway. Keeping to self. Covering self with blanket. Per nursing, pt slept in chair in milieu for 5 hours last night. Refused medications last night and this morning. Pt reports he does not want to sleep in a bed d/t feeling more vulnerable when laying down . Patient reports he does not want to go into the bathroom because he is paranoid that something might happen in there or someone might be waiting for me in there . Pt's 3 day up 03/30/24; he is requesting to be discharged home. 03/30: Observed standing at nurses station throughout shift; not taking redirection from staff to please step away for pt confidentiality. Argumentative. 3 day up today; filed on; pt notified. Pt stated, you can't keep me here. I'm going to jose you and make your head spin 3 times! Your documents are not real! Refused Zyprexa. Per nursing, pt urinated in carton in unit hallway;continues to refuse utilizing bathroom. Per nursing, pt did not eat anything today. 03/31: Pacing in front of nurses station. disheveled, malodorous; encouraged to shower, however pt declined despite being offered shower chair and staff member to wait outside shower room if assistance is needed. Per nursing, pt urinated in cup and sensory room floor last evening. Pt continues to report paranoia re garding using bathroom; pt stated, I'm worried someone will be in the bathroom waiting for me because of who I am . When asked why he believes someone would want to hurt him; pt stated, I can't discuss that . denies SI/HI/VH/AH. He reports not eating d/t concerns that he may be poisoned by someone ; observed drinking water from water bottle. Pt offered Zyprexa PO per court ordered treatment plan; per nursing, pt initially refused then agreed to take. 04/01: Patient continues to stand or pace in front of nurses station. disheveled, malodorous; per nursing, pt urinated in trash in [facility] last evening. T/W spoke to patient regarding using restroom on unit; pt continues to report concern that someone can try to kill me because of who I am and who my family is ; when asked why someone would hurt him. Pt stated, because we are well known in [place] and they may hurt me because of it ; pt unable to specify who they are. denies AH/VH. Pt was offered for staff member to examine restroom and stand outside to assure no one is waiting for him; however pt continues to decline. Patient stated, I feel like you guys are playing a psychotic game with me or that they are doing this for their entertainment . 04/02: Patient continues to present similar to days prior. He continues to report paranoia regarding using restroom, shower and eating. Pt stated, I urinated in the trash early in the morning ; he continues to state he will consider using restroom. Pt reports taking bites of breakfast this morning. denies any side effects from Zyprexa other than feeling tired; pt stated, I am feeling a bit calmer . Per nursing, pt slept in chair in [facility] for 7 hours last night. Will continue to build rapport. 04/03: Patient continues to report paranoia regarding using restroom, shower and eating. Pt was offered single room d/t continuous urinating in [facility]; pt declined. Pt stated, I don't think a single room would help. I'm still having the same thoughts . Pt reports he has increased his fluid intake with water, juice and milk; however he continues to report only take a few bites of food. Patient educated on: diagnosis, medication risk/benefits and therapeutic strategies Reason for continued inpatient stay Substantial Risk for: med/psych decompensation Time Spent With Patient Time: Total time managing care of this patient today _20___ minutes.
[2024-04-03] MEDS: OLANZapine ODT 10 MG TAB.RAPDIS 5 MG TRANSLINGU (15:29)
[2024-04-03 19:30] VITALS: BP 102/68; PULSE 105; RESP 18; TEMP 36.5; O2SAT 99
[2024-04-04] MEDS: OLANZapine ODT 10 MG TAB.RAPDIS 5 MG TRANSLINGU (15:03)
--- NOTE | 2024-04-04 19:10 | P.PNPSI_ITS ---
Subjective Subjective Date of Service: 04/04/24 Reason For Visit: Schizophrenia Subjective Notes: Section 7 Healthcare Proxy: No Guardianship: No Medical Problems Affecting Mental Status: No Interim History: In the milieu, with peers, some interaction with them, paranoia and fear appear present in pt's overall presentation. Pt asks about where his clothing is along with personal belongings and asks about discharge. He discussed medications and asks to decrease Olanzapine. We discussed increasing dosage which he declined at this time. Medication Compliance: Yes Side effects from medications: Yes (he reports sedative effect) Attending Groups: Intermittent Review of Systems Acute medical concerns: No Review of Systems Review of Systems denies Mental Status Exam Mental Status Exam Patient Appearance: Fatigued and Disheveled Patient Orientation: Person and Place Level of Consciousness: Alert Patient Behavior: Guarded, Talkative, Suspicious, Resistive to Care, Distractible and Good Eye Contact Mood Description: Blunted Affect Description: Blunted Patient Cognition Impaired: No Ability to Follow Directions: Fair Speech Pattern: Spontaneous Speech Memory Description: Episodic Impaired Delusions: Paranoid Ideation and Present Thought Process: Distracted and Goal Oriented Thought Content: positive for Circumstantial Depressive Symptoms: Thoughts of /Suicide (denies) Judgement: Poor Diagnostics Vital Signs (24Hr): Vital Signs - 24 hr 04/03/24 19:30 Temperature 97.7 F Pulse Rate 105 H Respiratory Rate 18 Blood Pressure 102/68 Pulse Oximetry 99 Oxygen Delivery Method Room Air BMI result Body Mass Index 25.4 Medications Medications Current Medications Acetaminophen (Acetaminophen 325 Mg Tablet) 650 mg PO Q6H PRN PRN Reason: Headache/Pain Mild Scale (1-3) Al Hydroxide/Mg Hydroxide (Magnesium Hydrox/Alum Hydrox 30 Ml Oral.Susp) 30 ml PO Q6H PRN PRN Reason: Heartburn/Nausea Benztropine Mesylate (Benztropine Mesylate 1 Mg Tablet) 1 mg PO DAILY PRN PRN Reason: Extrapyramidal Effects Betamethasone Dipropion Augmented (Betamethasone Dip Aug 0.05% Cr 15 Gm Tube) 1 appl TOPICAL BID [facility]; Protocol Last Admin: 04/04/24 08:49 Dose: Not Given Haloperidol Lactate (Haloperidol Lactate 5 Mg/Ml Vial) 5 mg IM DAILY PRN PRN Reason: Psychosis Hydroxyzine HCl (Hydroxyzine Hcl 25 Mg Tablet) 25 mg PO Q6H PRN PRN Reason: Anxiety Lactic Acid (Ammonium Lactate 12 % Cream 140 Gm Tube) 1 appl TOPICAL BID PRN; Protocol PRN Reason: Dry, scaly skin Magnesium Hydroxide (Milk Of Magnesia 30 Ml Oral.Susp) 30 ml PO DAILY PRN PRN Reason: Constipation Nicotine Polacrilex (Nicotine Polacrilex 2 Mg Gum) 4 mg BUCCAL Q2H PRN PRN Reason: Nicotine Cravings Olanzapine (Olanzapine Odt 10 Mg Tab.Rapdis) 5 mg TRANSLINGU DAILY@1500 LENI Last Admin: 04/04/24 15:03 Dose: 5 mg Trazodone HCl (Trazodone Hcl 50 Mg Tablet) 50 mg PO BEDTIME MRX1 PRN PRN Reason: Insomnia Allergies Allergies Allergy/AdvReac Type Severity Reaction Status Date / Time Unable to Assess Allergy Verified 03/25/24 21:15 Assessment & Plan Assessment & Plan (1) Schizophrenia: Status: Acute Code(s): F20.9 - Schizophrenia, unspecified Plan 03/26: risperidone /. collateral from mother. clarify legal circumstance/rolando's order. 03/27: refusing meds, not leaving his chair. urinating in cup beneath blanket. requesting immediate discharge. continue to offer medication. clarify legal circumstance and ability to involuntarily administer medication. diamond warning provided. 03/28: Sitting in chair in milieu. Per nursing, patient urinating in cups under blankets. Patient was notified that he must go to his room to use the toilet and can not urinate in common areas. Patient was able to walk down unit hallway with no assistance. Patient is requesting to have a wheelchair d/t being terrified of falling . Patient stated, I do not have any kind of condition. I am just worried about falling . Patient reports that he has not been eating much due to fear of being poisoned however, he would not elaborate as to who he believes is poisoning him. He reports at home he has been urinating in milk cartons and defecating in trash bags and having his mother dispose of these items. Patient agreed to take 1 mg of Risperdal PO; however, expressed paranoia towards RN about being a different medication/dosage despite being shown packaging. T/W obtained information from patient's mother, Chio; Chio reports patient has not been using the toilet for the past two years due to being afraid that snakes will get him and voices telling him the same. Chio reports, pt is also afraid of walking d/t fear of hitting his head. She reports patient has never been on antipsychotics and has only taken anti-anxiety medications for 3 weeks which patient discontinued. She denies history of inpatient psychiatric hospitalizations. She reports having guardianship due to patient being unable to care for self. 03/29: Observing pacing unit hallway. Keeping to self. Covering self with blanket. Per nursing, pt slept in chair in milieu for 5 hours last night. Refused medications last night and this morning. Pt reports he does not want to sleep in a bed d/t feeling more vulnerable when laying down . Patient reports he does not want to go into the bathroom because he is paranoid that something might happen in there or someone might be waiting for me in there . Pt's 3 day up 03/30/24; he is requesting to be discharged home. 03/30: Observed standing at nurses station throughout shift; not taking redirection from staff to please step away for pt confidentiality. Argumentative. 3 day up today; filed on; pt notified. Pt stated, you can't keep me here. I'm going to jose you and make your head spin 3 times! Your documents are not real! Refused Zyprexa. Per nursing, pt urinated in carton in unit hallway;continues to refuse utilizing bathroom. Per nursing, pt did not eat anything today. 03/31: Pacing in front of nurses station. disheveled, malodorous; encouraged to shower, however pt declined despite being offered shower chair and staff member to wait outside shower room if assistance is needed. Per nursing, pt urinated in cup and sensory room floor last evening. Pt continues to report paranoia regarding using bathroom; pt stated, I'm worried someone will be in the bathroom waiting for me because of who I am . When asked why he believes someone would want to hurt him; pt stated, I can't discuss that . denies SI/HI/VH/AH. He reports not eating d/t concerns that he may be poisoned by someone ; observed drinking water from water bottle. Pt offered Zyprexa PO per court ordered treatment plan; per nursing, pt initially refused then agreed to take. 04/01: Patient continues to stand or pace in front of nurses station. disheveled, malodorous; per nursing, pt urinated in trash in [facility] last evening. T/W spoke to patient re garding using restroom on unit; pt continues to report concern that someone can try to kill me because of who I am and who my family is ; when asked why someone would hurt him. Pt stated, because we are well known in [place] and they may hurt me because of it ; pt unable to specify who they are. denies AH/VH. Pt was offered for staff member to examine restroom and stand outside to assure no one is waiting for him; however pt continues to decline. Patient stated, I feel like you guys are playing a psychotic game with me or that they are doing this for their entertainment . 04/02: Patient continues to present similar to days prior. He continues to report paranoia regarding using restroom, shower and eating. Pt stated, I urinated in the trash early in the morning ; he continues to state he will consider using restroom. Pt reports taking bites of breakfast this morning. denies any side effects from Zyprexa other than feeling tired; pt stated, I am feeling a bit calmer . Per nursing, pt slept in chair in [facility] for 7 hours last night. Will continue to build rapport. 04/03: Patient continues to report paranoia regarding using restroom, shower and eating. Pt was offered single room d/t continuous urinating in [facility]; pt declined. Pt stated, I don't think a single room would help. I'm still having the same thoughts . Pt reports he has increased his fluid intake with water, juice and milk; however he continues to report only take a few bites of food. 04/04: Discussed medications increases with pt which he refuses at this time. Focused on discharge, and where his belongings are being stored at this time. Reason for continued inpatient stay Substantial Risk for: rapid decompensation Time Spent With Patient Time: Total time managing care of this patient today ____ minutes.
[2024-04-04 19:45] VITALS: BP 108/67; PULSE 102; TEMP 36.4; O2SAT 98
[2024-04-05 08:00] VITALS: RESP 18
--- NOTE | 2024-04-05 09:35 | P.PNPSI_ITS ---
Subjective Subjective Date of Service: 04/05/24 Reason For Visit: Schizophrenia Subjective Notes: Section 7 Interim History: Patient declined to meet with T/W in unit office; pt stated, I don't feel comfortable going into the office because I think someone would hurt me ; pt reassured no one would hurt him, however, he continued to decline. Met with pt in unit hallway. Patient reports he did not urinate yesterday; he was educated regarding medical complications that can occur with decreased intake of fluids and food. Pt stated, I know but it's not like I'm dying . Pt refused labs. Discussed various solutions of pt feeling safe to use restroom or shower. pt stated, I'm still worried someone is going to hurt me. I'm not sure who, but it's because I am along the lines of royalty and it's putting me in harms way if I use the bathroom, shower or eat . Pt reporting zyprexa is making him too tired ; plan to DC. start risperidal 1mg PO daily with plan to switch to PLAZA; discussed with pt. T/W spoke to patient's mother, Chio, who reports has not left the house in 2 years and has not bathed or used the restroom in a year. She expressed concern over his wellbeing of not drinking or eating. She plans on calling patient to encourage him increase fluid intake. Medication Compliance: Yes Side effects from medications: No Attending Groups: No Review of Systems Constitutional: Reports as per HPI Eyes: Reports as per HPI Reports as per HPI Cardiovascular: Reports as per HPI Respiratory: Reports as per HPI Gastrointestinal: Reports as per HPI Genitourinary: Reports as per HPI Musculoskeletal: Reports as per HPI Skin/Breast: Reports as per HPI Reports as per HPI Psychiatric: Reports as per HPI Endocrine: Reports as per HPI Hematologic/Lymphatic: Reports as per HPI Allergic/Immunologic: Reports as per HPI Mental Status Exam Mental Status Exam Narrative: Pt is alert and oriented; behavior is calm, guarded; dressed in hospital attire, malodorous, urinating in trash in [place]; mood is described as okay ; eye contact appropriate; Speech is normal rate, volume and not pressured; focused on discharge; paranoid. Diagnostics Vital Signs (24Hr): Vital Signs - 24 hr 04/04/24 19:45 04/05/24 08:00 Temperature 97.6 F Pulse Rate 102 H Respiratory Rate 18 Blood Pressure 108/67 Pulse Oximetry 98 Oxygen Delivery Method Room Air BMI result Body Mass Index 25.4 Medications Medications Current Medications Acetaminophen (Acetaminophen 325 Mg Tablet) 650 mg PO Q6H PRN PRN Reason: Headache/Pain Mild Scale (1-3) Al Hydroxide/Mg Hydroxide (Magnesium Hydrox/Alum Hydrox 30 Ml Oral.Susp) 30 ml PO Q6H PRN PRN Reason: Heartburn/Nausea Benztropine Mesylate (Benztropine Mesylate 1 Mg Tablet) 1 mg PO DAILY PRN PRN Reason: Extrapyramidal Effects Betamethasone Dipropion Augmented (Betamethasone Dip Aug 0.05% Cr 15 Gm Tube) 1 appl TOPICAL BID LENI; Protocol Last Admin: 04/05/24 09:17 Dose: Not Given Haloperidol Lactate (Haloperidol Lactate 5 Mg/Ml Vial) 5 mg IM DAILY PRN PRN Reason: Psychosis Hydroxyzine HCl (Hydroxyzine Hcl 25 Mg Tablet) 25 mg PO Q6H PRN PRN Reason: Anxiety Lactic Acid (Ammonium Lactate 12 % Cream 140 Gm Tube) 1 appl TOPICAL BID PRN; Protocol PRN Reason: Dry, scaly skin Magnesium Hydroxide (Milk Of Magnesia 30 Ml Oral.Susp) 30 ml PO DAILY PRN PRN Reason: Constipation Nicotine Polacrilex (Nicotine Polacrilex 2 Mg Gum) 4 mg BUCCAL Q2H PRN PRN Reason: Nicotine Cravings Olanzapine (Olanzapine Odt 10 Mg Tab.Rapdis) 5 mg TRANSLINGU DAILY@1500 LENI Last Admin: 04/04/24 15:03 Dose: 5 mg Trazodone HCl (Trazodone Hcl 50 Mg Tablet) 50 mg PO BEDTIME MRX1 PRN PRN Reason: Insomnia Allergies Allergies Allergy/AdvReac Type Severity Reaction Status Date / Time Unable to Assess Allergy Verified 03/25/24 21:15 Assessment & Plan Assessment & Plan (1) Schizophrenia: Status: Acute Code(s): F20.9 - Schizophrenia, unspecified Plan 03/26: risperidone 1/2. collateral from mother. clarify legal circumstance/rolando's order. 03/27: refusing meds, not leaving his chair. urinating in cup beneath blanket. requesting immediate discharge. continue to offer medication. clarify legal circumstance and ability to involuntarily administer medication. diamond warning provided. 03/28: Sitting in chair in milieu. Per nursing, patient urinating in cups under blankets. Patient was notified that he must go to his room to use the toilet and can not urinate in common areas. Patient was able to walk down unit hallway with no assistance. Patient is requesting to have a wheelchair d/t being terrified of falling . Patient stated, I do not have any kind of condition. I am just worried about falling . Patient reports that he has not been eating much due to fear of being poisoned however, he would not elaborate as to who he believes is poisoning him. He reports at home he has been urinating in milk cartons and defecating in trash bags and having his mother dispose of these items. Patient agreed to take 1 mg of Risperdal PO; however, expressed paranoia towards RN about being a different medication/dosage despite being shown packaging. T/W obtained information from patient's mother, Chio; Chio reports patient has not been using the toilet for the past two years due to being afraid that snakes will get him and voices telling him the same. Chio reports, pt is also afraid of walking d/t fear of hitting his head. She reports patient has never been on antipsychotics and has only taken anti-anxiety medications for 3 weeks which patient discontinued. She denies history of inpatient psychiatric hospitalizations. She reports having guardianship due to patient being unable to care for self. 03/29: Observing pacing unit hallway. Keeping to self. Covering self with blanket. Per nursing, pt slept in chair in milieu for 5 hours last night. Refused medications last night and this morning. Pt reports he does not want to sleep in a bed d/t feeling more vulnerable when laying down . Patient reports he does not want to go into the bathroom because he is paranoid that something might happen in there or someone might be waiting for me in there . Pt's 3 day up 03/30/24; he is requesting to be discharged home. 03/30: Observed standing at nurses station throughout shift; not taking redirection from staff to please step away for pt confidentiality. Argumentative. 3 day up today; filed on; pt notified. Pt stated, you can't keep me here. I'm going to jose you and make your head spin 3 times! Your documents are not real! Refused Zyprexa. Per nursing, pt urinated in carton in unit hallway;continues to refuse utilizing bathroom. Per nursing, pt did not eat anything today. 03/31: Pacing in front of nurses station. disheveled, malodorous; encouraged to shower, however pt declined despite being offered shower chair and staff member to wait outside shower room if assistance is needed. Per nursing, pt urinated in cup and sensory room floor last evening. Pt continues to report paranoia regarding using bathroom; pt stated, I'm worried someone will be in the bathroo m waiting for me because of who I am . When asked why he believes someone would want to hurt him; pt stated, I can't discuss that . denies SI/HI/VH/AH. He reports not eating d/t concerns that he may be poisoned by someone ; observed drinking water from water bottle. Pt offered Zyprexa PO per court ordered treatment plan; per nursing, pt initially refused then agreed to take. 04/01: Patient continues to stand or pace in front of nurses station. disheveled, malodorous; per nursing, pt urinated in trash in [place] last evening. T/W spoke to patient regarding using restroom on unit; pt continues to report concern that someone can try to kill me because of who I am and who my family is ; when asked why someone would hurt him. Pt stated, because we are well known in [place] and they may hurt me because of it ; pt unable to specify who they are. denies AH/VH. Pt was offered for staff member to examine restroom and stand outside to assure no one is waiting for him; however pt continues to decline. Patient stated, I feel like you guys are playing a psychotic game with me or that they are doing this for their entertainment . 04/02: Patient continues to present similar to days prior. He continues to report paranoia regarding using restroom, shower and eating. Pt stated, I urinated in the trash early in the morning ; he continues to state he will consider using restroom. Pt reports taking bites of breakfast this morning. denies any side effects from Zyprexa other than feeling tired; pt stated, I am feeling a bit calmer . Per nursing, pt slept in chair in [facility] for 7 hours last night. Will continue to build rapport. 04/03: Patient continues to report paranoia regarding using restroom, shower and eating. Pt was offered single room d/t continuous urinating in [facility]; pt dec lined. Pt stated, I don't think a single room would help. I'm still having the same thoughts . Pt reports he has increased his fluid intake with water, juice and milk; however he continues to report only take a few bites of food. 04/04: Discussed medications increases with pt which he refuses at this time. Focused on discharge, and where his belongings are being stored at this time. 04/05: Patient declined to meet with T/W in unit office; pt stated, I don't feel comfortable going into the office because I think someone would hurt me ; pt reassured no one would hurt him, however, he continued to decline. Met with pt in unit hallway. Patient reports he did not urinate yesterday; he was educated regarding medical complications that can occur with decreased intake of fluids and food. Pt stated, I know but it's not like I'm dying . Pt refused labs. Discussed various solutions of pt feeling safe to use restroom or shower. pt stated, I'm still worried someone is going to hurt me. I'm not sure who, but it's because I am along the lines of royalty and it's putting me in harms way if I use the bathroom, shower or eat . Pt reporting zyprexa is making him too tired ; plan to DC. start risperidal 1mg PO daily with plan to switch to PLAZA; discussed with pt. T/W spoke to patient's mother, Chio, who reports has not left the house in 2 years and has not bathed or used the restroom in a year. She expressed concern over his wellbeing of not drinking or eating. She plans on calling patient to encourage him increase fluid intake. Patient educated on: diagnosis, medication risk/benefits and therapeutic strategies Reason for continued inpatient stay Substantial Risk for: med/psych decompensation Time Spent With Patient Time: Total time managing care of this patient today _20___ minutes.
[2024-04-05] MEDS: Betamethasone Dip Aug 0.05% Cr 15 GM TUBE 1 APPL TOPICAL ×2 (11:07→20:47)
[2024-04-05] MEDS: Ammonium Lactate 12 % Cream 140 GM TUBE 1 APPL TOPICAL ×2 (11:07→20:55)
[2024-04-05] MEDS: OLANZapine ODT 10 MG TAB.RAPDIS 5 MG TRANSLINGU (14:54)
[2024-04-05 20:00] VITALS: RESP 16
[2024-04-06 08:57] VITALS: BP 100/68; PULSE 84; RESP 18; TEMP 36.4; O2SAT 84
--- NOTE | 2024-04-06 09:22 | HO.PSYCHPN ---
Subjective Subjective Date of Service: 04/06/24 Reason For Visit: Schizophrenia Subjective Notes: Section 7 Interim History: Patient agreed to meet with T/W in unit office; which we discussed was improvement from days prior; pt smiled at this. Pt continues to report paranoia regarding using restroom, showering and eating/drinking. Pt stated, I thought about what you said yesterday but I'm still not wanting to go into the bathroom or shower . Pt reports urinating in unit trash can yesterday; he continues to report he has yet to have a bowel movement since admission. He reports drinking a juice and taking a few bites of chicken yesterday; pt encouraged to increase fluid and food intake. Ordered Ativan 0.5mg PO BID; reviewed with pt; however he declined. Pt denies SI/HI/VH/AH. He reports having auditory hallucinations earlier this month but denies hearing them today. Medication Compliance: Yes Side effects from medications: No Attending Groups: No Review of Systems Constitutional: Reports as per HPI Eyes: Reports as per HPI Reports as per HPI Cardiovascular: Reports as per HPI Respiratory: Reports as per HPI Gastrointestinal: Reports as per HPI Genitourinary: Reports as per HPI Musculoskeletal: Reports as per HPI Skin/Breast: Reports as per HPI Reports as per HPI Psychiatric: Reports as per HPI Endocrine: Reports as per HPI Hematologic/Lymphatic: Reports as per HPI Allergic/Immunologic: Reports as per HPI Mental Status Exam Mental Status Exam Narrative: Pt is alert and oriented; behavior is calm, guarded; dressed in hospital attire, malodorous, urinating in trash in [place]; mood is described as okay ; eye contact appropriate; Speech is normal rate, volume and not pressured; focused on discharge; paranoid. Diagnostics Vital Signs (24Hr): Vital Signs - 24 hr 04/05/24 20:00 04/06/24 08:57 Temperature 97.5 F Pulse Rate 84 Respiratory Rate 16 18 Blood Pressure 100/68 Pulse Oximetry 84 L Oxygen Delivery Method Room Air BMI result Body Mass Index 25.4 Medications Medications Current Medications Acetaminophen (Acetaminophen 325 Mg Tablet) 650 mg PO Q6H PRN PRN Reason: Headache/Pain Mild Scale (1-3) Al Hydroxide/Mg Hydroxide (Magnesium Hydrox/Alum Hydrox 30 Ml Oral.Susp) 30 ml PO Q6H PRN PRN Reason: Heartburn/Nausea Benztropine Mesylate (Benztropine Mesylate 1 Mg Tablet) 1 mg PO DAILY PRN PRN Reason: Extrapyramidal Effects Betamethasone Dipropion Augmented (Betamethasone Dip Aug 0.05% Cr 15 Gm Tube) 1 appl TOPICAL BID LENI; Protocol Last Admin: 04/05/24 20:47 Dose: 1 appl Haloperidol Lactate (Haloperidol Lactate 5 Mg/Ml Vial) 5 mg IM DAILY PRN PRN Reason: Psychosis Hydroxyzine HCl (Hydroxyzine Hcl 25 Mg Tablet) 25 mg PO Q6H PRN PRN Reason: Anxiety Lactic Acid (Ammonium Lactate 12 % Cream 140 Gm Tube) 1 appl TOPICAL BID PRN; Protocol PRN Reason: Dry, scaly skin Last Admin: 04/05/24 20:55 Dose: 1 appl Magnesium Hydroxide (Milk Of Magnesia 30 Ml Oral.Susp) 30 ml PO DAILY PRN PRN Reason: Constipation Nicotine Polacrilex (Nicotine Polacrilex 2 Mg Gum) 4 mg BUCCAL Q2H PRN PRN Reason: Nicotine Cravings Risperidone (Risperidone 1 Mg Tablet) 1 mg PO DAILY LENI Trazodone HCl (Trazodone Hcl 50 Mg Tablet) 50 mg PO BEDTIME MRX1 PRN PRN Reason: Insomnia Allergies Allergies Allergy/AdvReac Type Severity Reaction Status Date / Time Unable to Assess Allergy Verified 03/25/24 21:15 Assessment & Plan Assessment & Plan (1) Schizophrenia: Status: Acute Code(s): F20.9 - Schizophrenia, unspecified Plan 03/26: risperidone 1/2. collateral from mother. clarify legal circumstance/rolando's order. 03/27: refusing meds, not leaving his chair. urinating in cup beneath blanket. requesting immediate discharge. continue to offer medication. clarify legal circumstance and ability to involuntarily administer medication. diamond warning provided. 03/28: Sitting in chair in milieu. Per nursing, patient urinating in cups under blankets. Patient was notified that he must go to his room to use the toilet and can not urinate in common areas. Patient was able to walk down unit hallway with no assistance. Patient is requesting to have a wheelchair d/t being terrified of falling . Patient stated, I do not have any kind of condition. I am just worried about falling . Patient reports that he has not been eating much due to fear of being poisoned however, he would not elaborate as to who he believes is poisoning him. He reports at home he has been urinating in milk cartons and defecating in trash bags and having his mother dispose of these items. Patient agreed to take 1 mg of Risperdal PO; however, expressed paranoia towards RN about being a different medication/dosage despite being shown packaging. T/W obtained information from patient's mother, Chio; Chio reports patient has not been using the toilet for the past two years due to being afraid that snakes will get him and voices telling him the same. Chio reports, pt is also afraid of walking d/t fear of hitting his head. She reports patient has never been on antipsychotics and has only taken anti-anxiety medications for 3 weeks which patient discontinued. She denies history of inpatient psychiatric hospitalizations. She reports having guardianship due to patient being unable to care for self. 03/29: Observing pacing unit hallway. Keeping to self. Covering self with blanket. Per nursing, pt slept in chair in milieu for 5 hours last night. Refused medications last night and this morning. Pt reports he does not want to sleep in a bed d/t feeling more vulnerable when laying down . Patient reports he does not want to go into the bathroom because he is paranoid that something might happen in there or someone might be waiting for me in there . Pt's 3 day up 03/30/24; he is requesting to be discharged home. 03/30: Observed standing at nurses station throughout shift; not taking redirection from staff to please step away for pt confidentiality. Argumentative. 3 day up today; filed on; pt notified. Pt stated, you can't keep me here. I'm going to jose you and make your head spin 3 times! Your documents are not real! Refused Zyprexa. Per nursing, pt urinated in carton in unit hallway;continues to refuse utilizing bathroom. Per nursing, pt did not eat anything today. 03/31: Pacing in front of nurses station. disheveled, malodorous; encouraged to shower, however pt declined despite being offered shower chair and staff member to wait outside shower room if assistance is needed. Per nursing, pt urinated in cup and sensory room floor last evening. Pt continues to report paranoia regarding using bathroom; pt stated, I'm worried someone will be in the bathroom waiting for me because of who I am . When asked why he believes someone would want to hurt him; pt stated, I can't discuss that . denies SI/HI/VH/AH. He reports not eating d/t concerns that he may be poisoned by someone ; observed drinking water from water bottle. Pt offered Zyprexa PO per court ordered treatment plan; per nursing, pt initially refused then agreed to take. 04/01: Patient continues to stand or pace in front of nurses station. disheveled, malodorous; per nursing, pt urinated in trash in [facility] last evening. T/W spoke to patient regarding using restroom on unit; pt continues to report concern that someone can try to kill me because of who I am and who my family is ; when asked why someone would hurt him. Pt stated, because we are well known in [place] and they may hurt me because of it ; pt unable to specify who they are. denies AH/VH. Pt was offered for staff member to examine restroom and stand outside to assure no one is waiting for him; however pt continues to decline. Patient stated, I feel like you guys are playing a psychotic game with me or that they are doing this for their entertainment . 04/02: Patient continues to present similar to days prior. He continues to report paranoia regarding using restroom, shower and eating. Pt stated, I urinated in the trash early in the morning ; he continues to state he will consider using restroom. Pt reports taking bites of breakfast this morning. denies any side effects from Zyprexa other than feeling tired; pt stated, I am feeling a bit calmer . Per nursing, pt slept in chair in [facility] for 7 hours last night. Will continue to build rapport. 04/03: Patient continues to report paranoia regarding using restroom, shower and eating. Pt was offered single room d/t continuous urinating in [facility]; pt declined. Pt stated, I don't think a single room would help. I'm still having the same thoughts . Pt reports he has increased his fluid intake with water, juice and milk; however he continues to report only take a few bites of food. 04/04: Discussed medications increases with pt which he refuses at this time. Focused on discharge, and where his belongings are being stored at this time. 04/05: Patient declined to meet with T/W in unit office; pt stated, I don't feel comfortable going into the office because I think someone would hurt me ; pt reassured no one would hurt him, however, he continued to decline. Met with pt in unit hallway. Patient reports he did not urinate yesterday; he was educated regarding medical complications that can occur with decreased intake of fluids and food. Pt stated, I know but it's not like I'm dying . Pt refused labs. Discussed various solutions of pt feeling safe to use restroom or shower. pt stated, I'm still worried someone is going to hurt me. I'm not sure who, but it's because I am along the lines of royalty and it's putting me in harms way if I use the bathroom, shower or eat . Pt reporting zyprexa is making him too tired ; plan to DC. start risperidal 1mg PO daily with plan to switch to PLAZA; discussed with pt. T/W spoke to patient's mother, Chio, who reports has not left the house in 2 years and has not bathed or used the restroom in a year. She expressed concern over his wellbeing of not drinking or eating. She plans on calling patient to encourage him increase fluid intake. 04/06: Patient agreed to meet with T/W in unit office; which we discussed was improvement from days prior; pt smiled at this. Pt continues to report paranoia regarding using restroom, showering and eating/drinking. Pt stated, I thought about what you said yesterday but I'm still not wanting to go into the bathroom or shower . Pt reports urinating in unit trash can yesterday; he continues to report he has yet to have a bowel movement since admission. He reports drinking a juice and taking a few bites of chicken yesterday; pt encouraged to increase fluid and food intake. Ordered Ativan 0.5mg PO BID; reviewed with pt; however he declined. Pt denies SI/HI/VH/AH. He reports having auditory hallucinations earlier this month but denies hearing them today. Continue current tx plan. Court hearing scheduled for tomorrow at 2pm. Patient educated on: diagnosis, medication risk/benefits and therapeutic strategies Reason for continued inpatient stay Substantial Risk for: med/psych decompensation Time Spent With Patient Time: Total time managing care of this patient today _20___ minutes.
[2024-04-06] MEDS: Betamethasone Dip Aug 0.05% Cr 15 GM TUBE 1 APPL TOPICAL (11:12)
[2024-04-06] MEDS: risperiDONE 1 MG TABLET PO (11:12)
[2024-04-06] MEDS: Ammonium Lactate 12 % Cream 140 GM TUBE 1 APPL TOPICAL ×2 (11:12→22:00)
--- NOTE | 2024-04-06 14:50 | PM.EVENT ---
Event Note Date of Service: 04/06/24 Event Note: worsening venous stasis, no cellulitis continue steroids, would add compression (can be michele wraps or stockings), elevate as much as possible Time Spent With Patient Time: Total time managing care of this patient today ____ minutes.
[2024-04-06 20:00] VITALS: BP 102/60; PULSE 95; RESP 16; TEMP 36.3; O2SAT 100
[2024-04-07] MEDS: risperiDONE 1 MG TABLET PO ×2 (08:56→21:07)
[2024-04-07] MEDS: Betamethasone Dip Aug 0.05% Cr 15 GM TUBE 1 APPL TOPICAL ×2 (09:06→21:00)
--- NOTE | 2024-04-07 16:47 | P.PNPSI_ITS ---
Subjective Subjective Date of Service: 04/07/24 Reason For Visit: Schizophrenia Subjective Notes: Section 8 Interim History: Pt continues similar to days prior. Pt reports he did not urinate yesterday. Refused labs again. Hearing was held today; Pt was commited. T/W informed pt of plan to increase risperidal. Pt to receive additional risperidal 1mg PO bedtime dose to night. Starting tomorrow, Increase: Risperidal 2mg PO bedtime. Medication Compliance: Yes Side effects from medications: No Attending Groups: No Review of Systems Constitutional: Reports as per HPI Eyes: Reports as per HPI Reports as per HPI Cardiovascular: Reports as per HPI Respiratory: Reports as per HPI Gastrointestinal: Reports as per HPI Genitourinary: Reports as per HPI Musculoskeletal: Reports as per HPI Skin/Breast: Reports as per HPI Reports as per HPI Psychiatric: Reports as per HPI Endocrine: Reports as per HPI Hematologic/Lymphatic: Reports as per HPI Allergic/Immunologic: Reports as per HPI Mental Status Exam Mental Status Exam Narrative: Pt is alert and oriented; behavior is calm, guarded; dressed in hospital attire, malodorous, urinating in trash in [place]; mood is described as okay ; eye contact appropriate; Speech is normal rate, volume and not pressured; focused on discharge; paranoid. Diagnostics Vital Signs (24Hr): Vital Signs - 24 hr 04/06/24 20:00 Temperature 97.4 F Pulse Rate 95 Respiratory Rate 16 Blood Pressure 102/60 Pulse Oximetry 100 Oxygen Delivery Method Room Air BMI result Body Mass Index 25.4 Medications Medications Current Medications Acetaminophen (Acetaminophen 325 Mg Tablet) 650 mg PO Q6H PRN PRN Reason: Headache/Pain Mild Scale (1-3) Al Hydroxide/Mg Hydroxide (Magnesium Hydrox/Alum Hydrox 30 Ml Oral.Susp) 30 ml PO Q6H PRN PRN Reason: Heartburn/Nausea Benztropine Mesylate (Benztropine Mesylate 1 Mg Tablet) 1 mg PO DAILY PRN PRN Reason: Extrapyramidal Effects Betamethasone Dipropion Augmented (Betamethasone Dip Aug 0.05% Cr 15 Gm Tube) 1 appl TOPICAL BID [facility]; Protocol Last Admin: 04/07/24 09:06 Dose: 1 appl Haloperidol Lactate (Haloperidol Lactate 5 Mg/Ml Vial) 5 mg IM DAILY PRN PRN Reason: Psychosis Hydroxyzine HCl (Hydroxyzine Hcl 25 Mg Tablet) 25 mg PO Q6H PRN PRN Reason: Anxiety Lactic Acid (Ammonium Lactate 12 % Cream 140 Gm Tube) 1 appl TOPICAL BID PRN; Protocol PRN Reason: Dry, scaly skin Last Admin: 04/06/24 22:00 Dose: 1 appl Lorazepam (Lorazepam 0.5 Mg Tablet) 0.5 mg PO BID [facility] Last Admin: 04/07/24 08:58 Dose: Not Given Magnesium Hydroxide (Milk Of Magnesia 30 Ml Oral.Susp) 30 ml PO DAILY PRN PRN Reason: Constipation Nicotine Polacrilex (Nicotine Polacrilex 2 Mg Gum) 4 mg BUCCAL Q2H PRN PRN Reason: Nicotine Cravings Risperidone (Risperidone 1 Mg Tablet) 1 mg PO DAILY [facility] Last Admin: 04/07/24 08:56 Dose: 1 mg Trazodone HCl (Trazodone Hcl 50 Mg Tablet) 50 mg PO BEDTIME MRX1 PRN PRN Reason: Insomnia Allergies Allergies Allergy/AdvReac Type Severity Reaction Status Date / Time Unable to Assess Allergy Verified 03/25/24 21:15 Assessment & Plan Assessment & Plan (1) Schizophrenia: Status: Acute Code(s): F20.9 - Schizophrenia, unspecified Plan 03/26: risperidone 1/2. collateral from mother. clarify legal circumstance/rolando's order. 03/27: refusing meds, not leaving his chair. urinating in cup beneath blanket. requesting immediate discharge. continue to offer medication. clarify legal circumstance and ability to involuntarily administer medication. diamond warning provided. 03/28: Sitting in chair in milieu. Per nursing, patient urinating in cups under blankets. Patient was notified that he must go to his room to use the toilet and can not urinate in common areas. Patient was able to walk down unit hallway with no assistance. Patient is requesting to have a wheelchair d/t being terrified of falling . Patient stated, I do not have any kind of condition. I am just worried about falling . Patient reports that he has not been eating much due to fear of being poisoned however, he would not elaborate as to who he believes is poisoning him. He reports at home he has been urinating in milk cartons and defecating in trash bags and having his mother dispose of these items. Patient agreed to take 1 mg of Risperdal PO; however, expressed paranoia towards RN about being a different medication/dosage despite being shown packaging. T/W obtained information from patient's mother, Chio; Chio reports patient has not been using the toilet for the past two years due to being afraid that snakes will get him and voices telling him the same. Chio reports, pt is also afraid of walking d/t fear of hitting his head. She reports patient has never been on antipsychotics and has only taken anti-anxiety medications for 3 weeks which patient discontinued. She denies history of inpatient psychiatric hospi talizations. She reports having guardianship due to patient being unable to care for self. 03/29: Observing pacing unit hallway. Keeping to self. Covering self with blanket. Per nursing, pt slept in chair in milieu for 5 hours last night. Refused medications last night and this morning. Pt reports he does not want to sleep in a bed d/t feeling more vulnerable when laying down . Patient reports h e does not want to go into the bathroom because he is paranoid that something might happen in there or someone might be waiting for me in there . Pt's 3 day up 03/30/24; he is requesting to be discharged home. 03/30: Observed standing at nurses station throughout shift; not taking redirection from staff to please step away for pt confidentiality. Argumentative. 3 day up today; filed on; pt notified. Pt stated, you can't keep me here. I'm going to jose you and make your head spin 3 times! Your documents are not real! Refused Zyprexa. Per nursing, pt urinated in carton in unit hallway;continues to refuse utilizing bathroom. Per nursing, pt did not eat anything today. 03/31: Pacing in front of nurses station. disheveled, malodorous; encouraged to shower, however pt declined despite being offered shower chair and staff member to wait outside shower room if assistance is needed. Per nursing, pt urinated in cup and sensory room floor last evening. Pt continues to report paranoia regardi ng using bathroom; pt stated, I'm worried someone will be in the bathroom waiting for me because of who I am . When asked why he believes someone would want to hurt him; pt stated, I can't discuss that . denies SI/HI/VH/AH. He reports not eating d/t concerns that he may be poisoned by someone ; observed drinking water from water bottle. Pt offered Zyprexa PO per court ordered treatment plan; per nursing, pt initially refused then agreed to take. 04/01: Patient continues to stand or pace in front of nurses station. disheveled, malodorous; per nursing, pt urinated in trash in [facility] last evening. T/W spoke to patient regarding using restroom on unit; pt continues to report concern that someone can try to kill me because of who I am and who my family is ; when asked why someone would hurt him. Pt stated, because we are well known in [place] and they may hurt me because of it ; pt unable to specify who they are. denies AH/VH. Pt was offered for staff member to examine restroom and stand outside to assure no one is waiting for him; however pt continues to decline. Patient stated, I feel like you guys are playing a psychotic game with me or that they are doing this for their entertainment . 04/02: Patient continues to present similar to days prior. He continues to report paranoia regarding using restroom, shower and eating. Pt stated, I urinated in the trash early in the morning ; he continues to state he will consider using restroom. Pt reports taking bites of breakfast this morning. denies any side effects from Zyprexa other than feeling tired; pt stated, I am feeling a bit calmer . Per nursing, pt slept in chair in [facility] for 7 hours last night. Will continue to build rapport. 04/03: Patient continues to report paranoia regarding using restroom, shower and eating. Pt was offered single room d/t continuous urinating in [facility]; pt declined. Pt stated, I don't think a single room would help. I'm still having the same thoughts . Pt reports he has increased his fluid intake with water, juice and milk; however he continues to report only take a few bites of food. 04/04: Discussed medications increases with pt which he refuses at this time. Focused on discharge, and where his belongings are being stored at this time. 04/05: Patient declined to meet with T/W in unit office; pt stated, I don't feel comfortable going into the office because I think someone would hurt me ; pt reassured no one would hurt him, however, he continued to decline. Met with pt in unit hallway. Patient reports he did not urinate yesterday; he was educated regarding medical complications that can occur with decreased intake of fluids and food. Pt stated, I know but it's not like I'm dying . Pt refused labs. Discussed various solutions of pt feeling safe to use restroom or shower. pt stated, I'm still worried someone is going to hurt me. I'm not sure who, but it's because I am along the lines of royalty and it's putting me in harms way if I use the bathroom, shower or eat . Pt reporting zyprexa is making him too tired ; plan to DC. start risperidal 1mg PO daily with plan to switch to PLAZA; discussed with pt. T/W spoke to patient's mother, Chio, who reports has not left the house in 2 years and has not bathed or used the restroom in a year. She expressed concern over his wellbeing of not drinking or eating. She plans on calling patient to encourage him increase fluid intake. 04/07: Pt continues similar to days prior. Pt reports he did not urinate yesterday. Refused labs again. Hearing was held today; Pt was commited. T/W informed pt of plan to increase risperidal. Pt to receive additional risperidal 1mg PO bedtime dose to night. Starting tomorrow, Increase: Risperidal 2mg PO bedtime. Patient educated on: diagnosis and medication risk/benefits Reason for continued inpatient stay Substantial Risk for: med/psych decompensation Time Spent With Patient Time: Total time managing care of this patient today _30___ minutes.
--- NOTE | 2024-04-08 09:33 | P.PNPSI_ITS ---
Subjective Subjective Date of Service: 04/08/24 Reason For Visit: Schizophrenia Subjective Notes: Section 8 Interim History: Staying in common area, however, keeping to self. per nursing, pt urinated in multiple cups last evening in common area and declined to use restroom. Pt reports feeling frustrated about not being discharged ; T/W discussed plan with medications again. Pt requesting to be discharged home today; asking multiple staff. Pt continues to report paranoia regarding using toilet, shower, eating/drinking. Encouraged to allow labs. Medication Compliance: Yes Side effects from medications: No Attending Groups: No Review of Systems Constitutional: Reports as per HPI Eyes: Reports as per HPI Reports as per HPI Cardiovascular: Reports as per HPI Respiratory: Reports as per HPI Gastrointestinal: Reports as per HPI Genitourinary: Reports as per HPI Musculoskeletal: Reports as per HPI Skin/Breast: Reports as per HPI Reports as per HPI Psychiatric: Reports as per HPI Endocrine: Reports as per HPI Hematologic/Lymphatic: Reports as per HPI Allergic/Immunologic: Reports as per HPI Mental Status Exam Mental Status Exam Narrative: Pt is alert and oriented; behavior is calm, guarded; dressed in hospital attire, malodorous, urinating in [place]; mood is described as frustrated ; eye contact appropriate; Speech is normal rate, volume and not pressured; focused on discharge; paranoid. Diagnostics Vital Signs (24Hr): BMI result Body Mass Index 25.4 Medications Medications Current Medications Acetaminophen (Acetaminophen 325 Mg Tablet) 650 mg PO Q6H PRN PRN Reason: Headache/Pain Mild Scale (1-3) Al Hydroxide/Mg Hydroxide (Magnesium Hydrox/Alum Hydrox 30 Ml Oral.Susp) 30 ml PO Q6H PRN PRN Reason: Heartburn/Nausea Benztropine Mesylate (Benztropine Mesylate 1 Mg Tablet) 1 mg PO DAILY PRN PRN Reason: Extrapyramidal Effects Betamethasone Dipropion Augmented (Betamethasone Dip Aug 0.05% Cr 15 Gm Tube) 1 appl TOPICAL BID [facility]; Protocol Last Admin: 04/08/24 08:57 Dose: Not Given Haloperidol Lactate (Haloperidol Lactate 5 Mg/Ml Vial) 5 mg IM DAILY PRN PRN Reason: Psychosis Hydroxyzine HCl (Hydroxyzine Hcl 25 Mg Tablet) 25 mg PO Q6H PRN PRN Reason: Anxiety Lactic Acid (Ammonium Lactate 12 % Cream 140 Gm Tube) 1 appl TOPICAL BID PRN; Protocol PRN Reason: Dry, scaly skin Last Admin: 04/06/24 22:00 Dose: 1 appl Lorazepam (Lorazepam 0.5 Mg Tablet) 0.5 mg PO BID [facility] Last Admin: 04/08/24 08:57 Dose: Not Given Magnesium Hydroxide (Milk Of Magnesia 30 Ml Oral.Susp) 30 ml PO DAILY PRN PRN Reason: Constipation Nicotine Polacrilex (Nicotine Polacrilex 2 Mg Gum) 4 mg BUCCAL Q2H PRN PRN Reason: Nicotine Cravings Risperidone (Risperidone 2 Mg Tablet) 2 mg PO BEDTIME [facility] Trazodone HCl (Trazodone Hcl 50 Mg Tablet) 50 mg PO BEDTIME MRX1 PRN PRN Reason: Insomnia Allergies Allergies Allergy/AdvReac Type Severity Reaction Status Date / Time Unable to Assess Allergy Verified 03/25/24 21:15 Assessment & Plan Assessment & Plan (1) Schizophrenia: Status: Acute Code(s): F20.9 - Schizophrenia, unspecified Plan 03/26: risperidone 1/. collateral from mother. clarify legal circumstance/rolando's order. 03/27: refusing meds, not leaving his chair. urinating in cup beneath blanket. requesting immediate discharge. continue to offer medication. clarify legal circumstance and ability to involuntarily administer medication. diamond warning provided. 03/28: Sitting in chair in milieu. Per nursing, patient urinating in cups under blankets. Patient was notified that he must go to his room to use the toilet and can not urinate in common areas. Patient was able to walk down unit hallway with no assistance. Patient is requesting to have a wheelchair d/t being terrified of falling . Patient stated, I do not have any kind of condition. I am just worried about falling . Patient reports that he has not been eating much due to fear of being poisoned however, he would not elaborate as to who he believes is poisoning him. He reports at home he has been urinating in milk cartons and defecating in trash bags and having his mother dispose of these items. Patient agreed to take 1 mg of Risperdal PO; however, expressed paranoia towards RN about being a different medication/dosage despite being shown packaging. T/W obtained information from patient's mother, Chio; Chio reports patient has not been using the toilet for the past two years due to being afraid that snakes will get him and voices telling him the same. Chio reports, pt is also afraid of walking d/t fear of hitting his head. She reports patient has never been on antipsychotics and has only taken anti-anxiety medications for 3 weeks which patient discontinued. She denies history of inpatient psychiatric hospitalizations. She reports having guardianship due to patient being unable to care for self. 03/29: Observing pacing unit hallway. Keeping to self. Covering self with blanket. Per nursing, pt slept in chair in milieu for 5 hours last night. Refused medications last night and this morning. Pt reports he does not want to sleep in a bed d/t feeling more vulnerable when laying down . Patient reports he does not want to go into the bathroom because he is paranoid that something might happen in there or someone might be waiting for me in there . Pt's 3 day up 03/30/24; he is requesting to be discharged home. 03/30: Observed standing at nurses station throughout shift; not taking redirection from staff to please step away for pt confidentiality. Argumentative. 3 day up today; filed on; pt notified. Pt stated, you can't keep me here. I'm going to jose you and make your head spin 3 times! Your documents are not real! Refused Zyprexa. Per nursing, pt urinated in carton in unit hallway;continues to refuse utilizing bathroom. Per nursing, pt did not eat anything today. 03/31: Pacing in front of nurses station. disheveled, malodorous; encouraged to shower, however pt declined despite being offered shower chair and staff member to wait outside shower room if assistance is needed. Per nursing, pt urinated in cup and sensory room floor last evening. Pt continues to report paranoia regarding using bathroom; pt stated, I'm worried someone will be in the bathroom waiting for me because of who I am . When asked why he believes someone would want to hurt him; pt stated, I can't discuss that . denies SI/HI/VH/AH. He reports not eating d/t concerns that he may be poisoned by someone ; observed drinking water from water bottle. Pt offered Zyprexa PO per court ordered treatment plan; per nursing, pt initially refused then agreed to take. 04/01: Patient continues to stand or pace in front of nurses station. di sheveled, malodorous; per nursing, pt urinated in trash [place] [facility] [place] last evening. T/W spoke to patient regarding using restroom on unit; pt continues to report concern that someone can try to kill me because of who I am and who my family is ; when asked why someone would hurt him. Pt stated, because we are well known in [place] and they may hurt me because of it ; pt unable to specify who they are. denies AH/VH. Pt was offered for staff member to examine restroom and stand outside to assure no one is waiting for him; however pt continues to decline. Patient stated, I feel like you guys are playing a psychotic game with me or that they are doing this for their entertainment . 04/02: Patient continues to present similar to days prior. He continues to report paranoia regarding using restroom, shower and eating. Pt stated, I urinated in the trash early in the morning ; he continues to state he will consider using restroom. Pt reports taking bites of breakfast this morning. denies any side effects from Zyprexa other than feeling tired; pt stated, I am feeling a bit calmer . Per nursing, pt slept in chair [place] [facility] [place] for 7 hours last night. Will continue to build rapport. 04/03: Patient continues to report paranoia regarding using restroom, shower and eating. Pt was offered single room d/t continuous urinating [place] [facility] [place]; pt declined. Pt stated, I don't think a single room would help. I'm still having the same thoughts . Pt reports he has increased his fluid intake with water, juice and milk; however he continues to report only take a few bites of food. 04/04: Discussed medications increases with pt which he refuses at this time. Focused on discharge, and where his belongings are being stored at this time. 04/05: Patient declined to meet with T/W in unit office; pt stated, I don't feel comfortable going into the office because I think someone would hurt me ; pt reassured no one would hurt him, however, he continued to decline. Met with pt in unit hallway. Patient reports he did not urinate yesterday; he was educated regarding medical complications that can occur with decreased intake of fluids and food. Pt stated, I know but it's not like I'm dying . Pt refused labs. Discussed various solutions of pt feeling safe to use restroom or shower. pt stated, I'm still worried someone is going to hurt me. I'm not sure who, but it's because I am along the lines of royalty and it's putting me in harms way if I use the bathroom, shower or eat . Pt reporting zyprexa is making him too tired ; plan to DC. start risperidal 1mg PO daily with plan to switch to PLAZA; discussed with pt. T/W spoke to patient's mother, Chio, who reports has not left the house in 2 years and has not bathed or used the restroom in a year. She expressed concern over his wellbeing of not drinking or eating. She plans on calling patient to encourage him increase fluid intake. 04/07: Pt continues similar to days prior. Pt reports he did not urinate yesterday. Refused labs again. Hearing was held today; Pt was commited. T/W informed pt of plan to increase risperidal. Pt to receive additional risperidal 1mg PO bedtime dose to night. Starting tomorrow, Increase: Risperidal 2mg PO bedtime. 04/08: Staying in common area, however, keeping to self. per nursing, pt urinated in multiple cups last evening in common area and declined to use restroom. Pt reports feeling frustrated about not being discharged ; T/W discussed plan with medications again. Pt requesting to be discharged home today; asking multiple staff. Pt continues to report paranoia regarding using toilet, shower, eati ng/drinking. Encouraged to allow labs. Patient educated on: diagnosis and medication risk/benefits Reason for continued inpatient stay Substantial Risk for: med/psych decompensation Time Spent With Patient Time: Total time managing care of this patient today _20___ minutes.
--- NOTE | 2024-04-08 16:36 | PC.NURSE ---
Pt was asked if he would be willing to provide a UA sample, as ordered by provider. Pt declined.
[2024-04-08 20:00] VITALS: BP 108/70; PULSE 78; RESP 14; TEMP 36.4; O2SAT 98
[2024-04-08] MEDS: risperiDONE 2 MG TABLET PO (21:27)
--- NOTE | 2024-04-09 07:40 | HO.PSYCHPN ---
Subjective Subjective Date of Service: 04/09/24 Reason For Visit: Schizophrenia Interim History: spends most of his time in the common area. Flat and guarded. Paranoid about the unit phones. Slept 7 hours but broken. partial medication adherence, but did accept Risperdal 2 mg. Medicine is involved regarding lower limb swelling and redness. Reports this is now his 15 stay here, which is accurate. Is guarded. Very focused on discharge. Reluctant to engage in discussion around symptoms, medications, decreased Food intake which appears due to paranoia. Review of Systems Review of Systems lower limb edema and redness, being followed by Medicine Mental Status Exam Mental Status Exam Narrative: Pt is alert and oriented; behavior is calm, guarded; dressed in hospital attire, malodorous, mood is described as not great ; eye contact appropriate; Speech is normal rate, volume and not pressured; focused on discharge; paranoid. no evidence of SI or HI. Insight and judgment is poor Diagnostics Vital Signs (24Hr): Vital Signs - 24 hr 04/08/24 20:00 Temperature 97.6 F Pulse Rate 78 Respiratory Rate 14 Blood Pressure 108/70 Pulse Oximetry 98 Oxygen Delivery Method Room Air BMI result Body Mass Index 25.4 Medications Medications Current Medications Acetaminophen (Acetaminophen 325 Mg Tablet) 650 mg PO Q6H PRN PRN Reason: Headache/Pain Mild Scale (1-3) Al Hydroxide/Mg Hydroxide (Magnesium Hydrox/Alum Hydrox 30 Ml Oral.Susp) 30 ml PO Q6H PRN PRN Reason: Heartburn/Nausea Benztropine Mesylate (Benztropine Mesylate 1 Mg Tablet) 1 mg PO DAILY PRN PRN Reason: Extrapyramidal Effects Betamethasone Dipropion Augmented (Betamethasone Dip Aug 0.05% Cr 15 Gm Tube) 1 appl TOPICAL BID LENI; Protocol Last Admin: 04/08/24 21:41 Dose: Not Given Haloperidol Lactate (Haloperidol Lactate 5 Mg/Ml Vial) 5 mg IM DAILY PRN PRN Reason: Psychosis Hydroxyzine HCl (Hydroxyzine Hcl 25 Mg Tablet) 25 mg PO Q6H PRN PRN Reason: Anxiety Lactic Acid (Ammonium Lactate 12 % Cream 140 Gm Tube) 1 appl TOPICAL BID PRN; Protocol PRN Reason: Dry, scaly skin Last Admin: 04/06/24 22:00 Dose: 1 appl Lorazepam (Lorazepam 0.5 Mg Tablet) 0.5 mg PO BID [facility] Last Admin: 04/08/24 22:29 Dose: Not Given Magnesium Hydroxide (Milk Of Magnesia 30 Ml Oral.Susp) 30 ml PO DAILY PRN PRN Reason: Constipation Nicotine Polacrilex (Nicotine Polacrilex 2 Mg Gum) 4 mg BUCCAL Q2H PRN PRN Reason: Nicotine Cravings Risperidone (Risperidone 2 Mg Tablet) 2 mg PO BEDTIME [facility] Last Admin: 04/08/24 21:27 Dose: 2 mg Trazodone HCl (Trazodone Hcl 50 Mg Tablet) 50 mg PO BEDTIME MRX1 PRN PRN Reason: Insomnia Allergies Allergies Allergy/AdvReac Type Severity Reaction Status Date / Time Unable to Assess Allergy Verified 03/25/24 21:15 Assessment & Plan Assessment & Plan (1) Schizophrenia: Status: Acute Code(s): F20.9 - Schizophrenia, unspecified Plan 03/26: risperidone /. collateral from mother. clarify legal circumstance/rolando's order. 03/27: refusing meds, not leaving his chair. urinating in cup beneath blanket. requesting immediate discharge. continue to offer medication. clarify legal circumstance and ability to involuntarily administer medication. diamond warning provided. 03/28: Sitting in chair in milieu. Per nursing, patient urinating in cups under blankets. Patient was notified that he must go to his room to use the toilet and can not urinate in common areas. Patient was able to walk down unit hallway with no assistance. Patient is requesting to have a wheelchair d/t being terrified of falling . Patient stated, I do not have any kind of condition. I am just worried about falling . Patient reports that he has not been eating much due to fear of being poisoned however, he would not elaborate as to who he believes is poisoning him. He reports at home he has been urinating in milk cartons and defecating in trash bags and having his mother dispose of these items. Patient agreed to take 1 mg of Risperdal PO; however, expressed paranoia towards RN about being a different medication/dosage despite being shown packaging. T/W obtained information from patient's mother, Chio; Chio reports patient has not been using the toilet for the past two years due to being afraid that snakes will get him and voices telling him the same. Chio reports, pt is also afraid of walking d/t fear of hitting his head. She reports patient has never been on antipsychotics and has only taken anti-anxiety medications for 3 weeks which patient discontinued. She denies history of inpatient psychiatric hospitalizations. She reports having guardianship due to patient being unable to care for self. 03/29: Observing pacing unit hallway. Keeping to self. Covering self with blanket. Per nursing, pt slept in chair in milieu for 5 hours last night. Refused medications last night and this morning. Pt reports he does not want to sleep in a bed d/t feeling more vulnerable when laying down . Patient reports he does not want to go into the bathroom because he is paranoid that something might happen in there or someone might be waiting for me in there . Pt's 3 day up 03/30/24; he is requesting to be discharged home. 03/30: Observed standing at nurses station throughout shift; not taking redirection from staff to please step away for pt confidentiality. Argumentative. 3 day up today; filed on; pt notified. Pt stated, you can't keep me here. I'm going to jose you and make your head spin 3 times! Your documents are not real! Refused Zyprexa. Per nursing, pt urinated in carton in unit hallway;continues to refuse utilizing bathroom. Per nursing, pt did not eat anything today. 03/31: Pacing in front of nurses station. disheveled, malodorous; encouraged to shower, however pt declined despite being offered shower chair and staff member to wait outside shower room if assistance is needed. Per nursing, pt urinated in cup and sensory room floor last evening. Pt continues to report paranoia regarding using bathroom; pt stated, I'm worried someone will be in the bathroom waiting for me because of who I am . When asked why he believes someone would want to hurt him; pt stated, I can't discuss that . denies SI/HI/VH/AH. He reports not eating d/t concerns that he may be poisoned by someone ; observed drinking water from water bottle. Pt offered Zyprexa PO per court ordered treatment plan; per nursing, pt initially refused then agreed to take. 04/01: Patient continues to stand or pace in front of nurses station. disheveled, malodorous; per nursing, pt urinated in trash in [facility] last evening. T/W spoke to patient regarding using restroom on unit; pt continues to report concern that someone can try to kill me because of who I am and who my family is ; when asked why someone would hurt him. Pt stated, because we are well known in [place] and they may hurt me because of it ; pt unable to specify who they are. denies AH/VH. Pt was offered for staff member to examine restroom and stand outside to assure no one is waiting for him; however pt continues to decline. Patient stated, I feel like you guys are playing a psychotic game with me or that they are doing this for their entertainment . 04/02: Patient continues to present similar to days prior. He continues to report paranoia regarding using restroom, shower and eating. Pt stated, I urinated in the trash early in the morning ; he continues to state he will consider using restroom. Pt reports taking bites of breakfast this morning. denies any side effects from Zyprexa other than feeling tired; pt stated, I am feeling a bit calmer . Per nursing, pt slept in chair in [facility] for 7 hours last night. Will continue to build rapport. 04/03: Patient continues to report paranoia regarding using restroom, shower and eating. Pt was offered single room d/t continuous urinating in [facility]; pt declined. Pt stated, I don't think a single room would help. I'm still having the same thoughts . Pt reports he has increased his fluid intake with water, juice and milk; however he continues to report only take a few bites of food. 04/04: Discussed medications increases with pt which he refuses at this time. Focused on discharge, and where his belongings are being stored at this time. 04/05: Patient declined to meet with T/W in unit office; pt stated, I don't feel comfortable going into the office because I think someone would hurt me ; pt reassured no one would hurt him, however, he continued to decline. Met with pt in unit hallway. Patient reports he did not urinate yesterday; he was educated regarding medical complications that can occur with decreased intake of fluids and food. Pt stated, I know but it's not like I'm dying . Pt refused labs. Discussed various solutions of pt feeling safe to use restroom or shower. pt stated, I'm still worried someone is going to hurt me. I'm not sure who, but it's because I am along the lines of royalty and it's putting me in harms way if I use the bathroom, shower or eat . Pt reporting zyprexa is making him too tired ; plan to DC. start risperidal 1mg PO daily with plan to switch to PLAZA; discussed with pt. T/W spoke to patient's mother, Chio, who reports has not left the house in 2 years and has not bathed or used the restroom in a year. She expressed concern over his wellbeing of not drinking or eating. She plans on calling patient to encourage him increase fluid intake. 04/07: Pt continues similar to days prior. Pt reports he did not urinate yesterday. Refused labs again. Hearing was held today; Pt was commited. T/W informed pt of plan to increase risperidal. Pt to receive additional risperidal 1mg PO bedtime dose to night. Starting tomorrow, Increase: Risperidal 2mg PO bedtime. 04/08: Staying in common area, however, keeping to self. per nursing, pt urinated in multiple cups last evening in common area and declined to use restroom. Pt reports feeling frustrated about not being discharged ; T/W discussed plan with medications again. Pt requesting to be discharged home today; asking multiple staff. Pt continues to report paranoia regarding using toilet, shower, eating/drinking. Encouraged to allow labs. 04/09/2024: No changes. Encourage ongoing med adherence especially for Risperdal. Also encourage elevating legs as per hospitalist evaluation on 04/06/2024. Ordering an extra large compression stockings. Reason for continued inpatient stay Substantial Risk for: inability to function Time Spent With Patient Time: Total time managing care of this patient today ____ minutes.
[2024-04-09] MEDS: Betamethasone Dip Aug 0.05% Cr 15 GM TUBE 1 APPL TOPICAL ×2 (09:00→22:00)
[2024-04-09] MEDS: Ammonium Lactate 12 % Cream 140 GM TUBE 1 APPL TOPICAL ×2 (10:58→21:58)
--- NOTE | 2024-04-09 11:14 | PC.NURSE ---
Pt education materials from [employer] regarding venous stasis were provided to the patient today and explained to him by RN
[2024-04-09 20:00] VITALS: BP 103/69; PULSE 66; RESP 16; TEMP 36.4; O2SAT 98
[2024-04-09] MEDS: risperiDONE 2 MG TABLET PO (21:45)
[2024-04-10 08:00] VITALS: BP 105/64; PULSE 76; RESP 16; TEMP 36.5; O2SAT 100
[2024-04-10] MEDS: Betamethasone Dip Aug 0.05% Cr 15 GM TUBE 1 APPL TOPICAL ×2 (10:00→21:12)
[2024-04-10] MEDS: Ammonium Lactate 12 % Cream 140 GM TUBE 1 APPL TOPICAL ×2 (10:00→21:12)
--- NOTE | 2024-04-10 10:17 | HO.PSYCHPN ---
Subjective Subjective Date of Service: 04/10/24 Reason For Visit: Schizophrenia Interim History: Spends most of his time in the common area. Did interview in separate room today. Flat. Less guarded. Very concerned about time in hospital 8 days in the ER at that place, this is 16 days here so 24 days total . Eager to return home with mom and encouraged to communicate with mom and treatment team. Risperdal is alright and prefers this over zyprexa (Sedation). Not sure if its helpful but reports others say he is less paranoid. Sleep ok. Medication Compliance: Yes Side effects from medications: No Attending Groups: Intermittent Review of Systems Acute medical concerns: No Review of Systems Review of Systems lower limb edema and redness (stable/no change), being followed by Medicine Mental Status Exam Mental Status Exam Narrative: Pt is alert and oriented; behavior is calm, guarded; dressed in hospital attire, malodorous, mood is described as so so ; eye contact appropriate; Speech is normal rate, volume and not pressured; focused on discharge; paranoid. no evidence of SI or HI. Insight and judgment is poor Diagnostics Vital Signs (24Hr): Vital Signs - 24 hr 04/09/24 20:00 04/10/24 08:00 Temperature 97.6 F 97.7 F Pulse Rate 66 76 Respiratory Rate 16 16 Blood Pressure 103/69 105/64 Pulse Oximetry 98 100 Oxygen Delivery Method Room Air Room Air BMI result Body Mass Index 25.4 Medications Medications Current Medications Acetaminophen (Acetaminophen 325 Mg Tablet) 650 mg PO Q6H PRN PRN Reason: Headache/Pain Mild Scale (1-3) Al Hydroxide/Mg Hydroxide (Magnesium Hydrox/Alum Hydrox 30 Ml Oral.Susp) 30 ml PO Q6H PRN PRN Reason: Heartburn/Nausea Benztropine Mesylate (Benztropine Mesylate 1 Mg Tablet) 1 mg PO DAILY PRN PRN Reason: Extrapyramidal Effects Betamethasone Dipropion Augmented (Betamethasone Dip Aug 0.05% Cr 15 Gm Tube) 1 appl TOPICAL BID LENI; Protocol Last Admin: 04/10/24 10:00 Dose: 1 appl Haloperidol Lactate (Haloperidol Lactate 5 Mg/Ml Vial) 5 mg IM DAILY PRN PRN Reason: Psychosis Hydroxyzine HCl (Hydroxyzine Hcl 25 Mg Tablet) 25 mg PO Q6H PRN PRN Reason: Anxiety Lactic Acid (Ammonium Lactate 12 % Cream 140 Gm Tube) 1 appl TOPICAL BID PRN; Protocol PRN Reason: Dry, scaly skin Last Admin: 04/10/24 10:00 Dose: 1 appl Lorazepam (Lorazepam 0.5 Mg Tablet) 0.5 mg PO BID [facility] Last Admin: 04/10/24 08:18 Dose: Not Given Magnesium Hydroxide (Milk Of Magnesia 30 Ml Oral.Susp) 30 ml PO DAILY PRN PRN Reason: Constipation Nicotine Polacrilex (Nicotine Polacrilex 2 Mg Gum) 4 mg BUCCAL Q2H PRN PRN Reason: Nicotine Cravings Risperidone (Risperidone 2 Mg Tablet) 2 mg PO BEDTIME [facility] Last Admin: 04/09/24 21:45 Dose: 2 mg Trazodone HCl (Trazodone Hcl 50 Mg Tablet) 50 mg PO BEDTIME MRX1 PRN PRN Reason: Insomnia Allergies Allergies Allergy/AdvReac Type Severity Reaction Status Date / Time Unable to Assess Allergy Verified 03/25/24 21:15 Assessment & Plan Assessment & Plan (1) Schizophrenia: Status: Acute Code(s): F20.9 - Schizophrenia, unspecified Plan 03/26: risperidone 1/2. collateral from mother. clarify legal circumstance/rolando's order. 03/27: refusing meds, not leaving his chair. urinating in cup beneath blanket. requesting immediate discharge. continue to offer medication. clarify legal circumstance and ability to involuntarily administer medication. diamond warning provided. 03/28: Sitting in chair in milieu. Per nursing, patient urinating in cups under blankets. Patient was notified that he must go to his room to use the toilet and can not urinate in common areas. Patient was able to walk down unit hallway with no assistance. Patient is requesting to have a wheelchair d/t being terrified of falling . Patient stated, I do not have any kind of condition. I am just worried about falling . Patient reports that he has not been eating much due to fear of being poisoned however, he would not elaborate as to who he believes is poisoning him. He reports at home he has been urinating in milk cartons and defecating in trash bags and having his mother dispose of these items. Patient agreed to take 1 mg of Risperdal PO; however, expressed paranoia towards RN about being a different medication/dosage despite being shown packaging. T/W obtained information from patient's mother, Chio; Chio reports patient has not been using the toilet for the past two years due to being afraid that snakes will get him and voices telling him the same. Chio reports, pt is also afraid of walking d/t fear of hitting his head. She reports patient has never been on antipsychotics and has only taken anti-anxiety medications for 3 weeks which patient discontinued. She denies history of inpatient psychiatric hospitalizations. She reports having guardianship due to patient being unable to care for self. 03/29: Observing pacing unit hallway. Keeping to self. Covering self with blanket. Per nursing, pt slept in chair in milieu for 5 hours last night. Refused medications last night and this morning. Pt reports he does not want to sleep in a bed d/t feeling more vulnerable when laying down . Patient reports he does not want to go into the bathroom because he is paranoid that something might happen in there or someone might be waiting for me in there . Pt's 3 day up 03/30/24; he is requesting to be discharged home. 03/30: Observed standing at nurses station throughout shift; not taking redirection from staff to please step away for pt confidentiality. Argumentative. 3 day up today; filed on; pt notified. Pt stated, you can't keep me here. I'm going to jose you and make your head spin 3 times! Your documents are not real! Refused Zyprexa. Per nursing, pt urinated in carton in unit hallway;continues to refuse utilizing bathroom. Per nursing, pt did not eat anything today. 03/31: Pacing in front of nurses station. disheveled, malodorous; encouraged to shower, however pt declined despite being offered shower chair and staff member to wait outside shower room if assistance is needed. Per nursing, pt urinated in cup and sensory room floor last evening. Pt continues to report paranoia regarding using bathroom; pt stated, I'm worried someone will be in the bathroom waiting for me because of who I am . When asked why he believes someone would want to hurt him; pt stated, I can't discuss that . denies SI/HI/VH/AH. He reports not eating d/t concerns that he may be poisoned by someone ; observed drinking water from water bottle. Pt offered Zyprexa PO per court ordered treatment plan; per nursing, pt initially refused then agreed to take. 04/01: Patient continues to stand or pace in front of nurses station. disheveled, malodorous; per nursing, pt urinated in trash in [facility] last evening. T/W spoke to patient regarding using restroom on unit; pt continues to report concern that someone can try to kill me because of who I am and who my family is ; when asked why someone would hurt him. Pt stated, because we are well known in [place] and they may hurt me because of it ; pt unable to specify who they are. denies AH/VH. Pt was offered for staff member to examine restroom and stand outside to assure no one is waiting for him; however pt continues to decline. Patient stated, I feel like you guys are playing a psychotic game with me or that they are doing this for their entertainment . 04/02: Patient continues to present similar to days prior. He continues to report paranoia regarding using restroom, shower and eating. Pt stated, I urinated in the trash early in the morning ; he continues to state he will consider using restroom. Pt reports taking bites of breakfast this morning. denies any side effects from Zyprexa other than feeling tired; pt stated, I am feeling a bit calmer . Per nursing, pt slept in chair in [facility] for 7 hours last night. Will continue to build rapport. 04/03: Patient continues to report paranoia regarding using restroom, shower and eating. Pt was offered single room d/t continuous urinating in [facility]; pt declined. Pt stated, I don't think a single room would help. I'm still having the same thoughts . Pt reports he has increased his fluid intake with water, juice and milk; however he continues to report only take a few bites of food. 04/04: Discussed medications increases with pt which he refuses at this time. Focused on discharge, and where his belongings are being stored at this time. 04/05: Patient declined to meet with T/W in unit office; pt stated, I don't feel comfortable going into the office because I think someone would hurt me ; pt reassured no one would hurt him, however, he continued to decline. Met with pt in unit [facility]. Patient reports he did not urinate yesterday; he was educated regarding medical complications that can occur with decreased intake of fluids and food. Pt stated, I know but it's not like I'm dying . Pt refused labs. Discussed various solutions of pt feeling safe to use restroom or shower. pt stated, I'm still worried someone is going to hurt me. I'm not sure who, but it's because I am along the lines of royalty and it's putting me in harms way if I use the bathroom, shower or eat . Pt reporting zyprexa is making him too tired ; plan to DC. start risperidal 1mg PO daily with plan to switch to PLAZA; discussed with pt. T/W spoke to patient's mother, Chio, who reports has not left the house in 2 years and has not bathed or used the restroom in a year. She expressed concern over his wellbeing of not drinking or eating. She plans on calling patient to encourage him increase fluid intake. 04/07: Pt continues similar to days prior. Pt reports he did not urinate yesterday. Refused labs again. Hearing was held today; Pt was commited. T/W informed pt of plan to increase risperidal. Pt to receive additional risperidal 1mg PO bedtime dose to night. Starting tomorrow, Increase: Risperidal 2mg PO bedtime. 04/08: Staying in common area, however, keeping to self. per nursing, pt urinated in multiple cups last evening in common area and declined to use restroom. Pt reports feeling frustrated about not being discharged ; T/W discussed plan with medications again. Pt requesting to be discharged home today; asking multiple staff. Pt continues to report paranoia regarding using toilet, shower, eating/drinking. Encouraged to allow labs. 04/10/2024: No changes. Encourage ongoing med adherence especially for Risperdal. Also encourage elevating legs as per hospitalist evaluation on 04/06/2024. Ordering an extra large compression stockings. Reason for continued inpatient stay Substantial Risk for: rapid decompensation Time Spent With Patient Time: Total time managing care of this patient today ____ minutes.
[2024-04-10 19:50] VITALS: BP 102/66; PULSE 94; RESP 17; TEMP 36.6; O2SAT 99
[2024-04-10] MEDS: risperiDONE 2 MG TABLET PO (21:12)
--- NOTE | 2024-04-11 10:58 | HO.PSYCHPN ---
Subjective Subjective Date of Service: 04/11/24 Reason For Visit: Schizophrenia Subjective Notes: Section 8 Interim History: Reviewed with Dr. Lorenzana. Met with pt in unit office. Continues to stay in common areas. paranoid. Pt discussed paranoia regarding eating; pt stated, how do you know someone isn't trying to poison me? People in this hospital. Per nursing, ate 10% of one meal yesterday and 25% of one meal today, has not eaten anything otherwise. Patient continues to refuse labs; shower (pt reports he has not bathed himself since admission and refusing to change clothes). Declining to use bathroom. perseverating on discharge to go back home where I can continue doing these things and be more comfortable . Continues similar to days prior; ? possible cheeking, will switch to risperidal liquid. Increase dose to Risperidal 3mg PO bedtime. Medication Compliance: Yes Side effects from medications: No Attending Groups: No Review of Systems Review of Systems lower limb edema and redness (stable/no change), being followed by Medicine Constitutional: Reports as per HPI Eyes: Reports as per HPI Reports as per HPI Cardiovascular: Reports as per HPI Respiratory: Reports as per HPI Gastrointestinal: Reports as per HPI Genitourinary: Reports as per HPI Musculoskeletal: Reports as per HPI Skin/Breast: Reports as per HPI Reports as per HPI Psychiatric: Reports as per HPI Endocrine: Reports as per HPI Hematologic/Lymphatic: Reports as per HPI Allergic/Immunologic: Reports as per HPI Mental Status Exam Mental Status Exam Narrative: Pt is alert and oriented; behavior is calm, guarded; dressed in hospital attire, malodorous, mood is described as fine ; eye contact appropriate; Speech is normal rate, volume and not pressured; focused on discharge; paranoid. no evidence of SI or HI. Insight and judgment is poor. Diagnostics Vital Signs (24Hr): Vital Signs - 24 hr 04/10/24 19:50 Temperature 97.8 F Pulse Rate 94 Respiratory Rate 17 Blood Pressure 102/66 Pulse Oximetry 99 Oxygen Delivery Method Room Air BMI result Body Mass Index 25.4 Medications Medications Current Medications Acetaminophen (Acetaminophen 325 Mg Tablet) 650 mg PO Q6H PRN PRN Reason: Headache/Pain Mild Scale (1-3) Al Hydroxide/Mg Hydroxide (Magnesium Hydrox/Alum Hydrox 30 Ml Oral.Susp) 30 ml PO Q6H PRN PRN Reason: Heartburn/Nausea Benztropine Mesylate (Benztropine Mesylate 1 Mg Tablet) 1 mg PO DAILY PRN PRN Reason: Extrapyramidal Effects Betamethasone Dipropion Augmented (Betamethasone Dip Aug 0.05% Cr 15 Gm Tube) 1 appl TOPICAL BID LENI; Protocol Last Admin: 04/10/24 21:12 Dose: 1 appl Haloperidol Lactate (Haloperidol Lactate 5 Mg/Ml Vial) 5 mg IM DAILY PRN PRN Reason: Psychosis Hydroxyzine HCl (Hydroxyzine Hcl 25 Mg Tablet) 25 mg PO Q6H PRN PRN Reason: Anxiety Lactic Acid (Ammonium Lactate 12 % Cream 140 Gm Tube) 1 appl TOPICAL BID PRN; Protocol PRN Reason: Dry, scaly skin Last Admin: 04/10/24 21:12 Dose: 1 appl Lorazepam (Lorazepam 0.5 Mg Tablet) 0.5 mg PO BID LENI Last Admin: 04/11/24 08:37 Dose: Not Given Magnesium Hydroxide (Milk Of Magnesia 30 Ml Oral.Susp) 30 ml PO DAILY PRN PRN Reason: Constipation Nicotine Polacrilex (Nicotine Polacrilex 2 Mg Gum) 4 mg BUCCAL Q2H PRN PRN Reason: Nicotine Cravings Risperidone (Risperidone 3 Mg Tablet) 3 mg PO BEDTIME LENI Trazodone HCl (Trazodone Hcl 50 Mg Tablet) 50 mg PO BEDTIME MRX1 PRN PRN Reason: Insomnia Allergies Allergies Allergy/AdvReac Type Severity Reaction Status Date / Time Unable to Assess Allergy Verified 03/25/24 21:15 Assessment & Plan Assessment & Plan (1) Schizophrenia: Status: Acute Code(s): F20.9 - Schizophrenia, unspecified Plan 03/26: risperidone 1/2. collateral from mother. clarify legal circumstance/rolando's order. 03/27: refusing meds, not leaving his chair. urinating in cup beneath blanket. requesting immediate discharge. continue to offer medication. clarify legal circumstance and ability to involuntarily administer medication. diamond warning provided. 03/28: Sitting in chair in milieu. Per nursing, patient urinating in cups under blankets. Patient was notified that he must go to his room to use the toilet and can not urinate in common areas. Patient was able to walk down unit hallway with no assistance. Patient is requesting to have a wheelchair d/t being terrified of falling . Patient stated, I do not have any kind of condition. I am just worried about falling . Patient reports that he has not been eating much due to fear of being poisoned however, he would not elaborate as to who he believes is poisoning him. He reports at home he has been urinating in milk cartons and defecating in trash bags and having his mother dispose of these items. Patient agreed to take 1 mg of Risperdal PO; however, expressed paranoia towards RN about being a different medication/dosage despite being shown packaging. T/W obtained information from patient's mother, Chio; Chio reports patient has not been using the toilet for the past two years due to being afraid that snakes will get him and voices telling him the same. Chio reports, pt is also afraid of walking d/t fear of hitting his head. She reports patient has never been on antipsychotics and has only taken anti-anxiety medications for 3 weeks which patient discontinued. She denies history of inpatient psychiatric hospitalizations. She reports having guardianship due to patient being unable to care for self. 03/29: Observing pacing unit hallway. Keeping to self. Covering self with blanket. Per nursing, pt slept in chair in milieu for 5 hours last night. Refused medications last night and this morning. Pt reports he does not want to sleep in a bed d/t feeling more vulnerable when laying down . Patient reports he does not want to go into the bathroom because he is paranoid that something might happen in there or someone might be waiting for me in there . Pt's 3 day up 03/30/24; he is requesting to be discharged home. 03/30: Observed standing at nurses station throughout shift; not taking redirection from staff to please step away for pt confidentiality. Argumentative. 3 day up today; filed on; pt notified. Pt stated, you can't keep me here. I'm going to jose you and make your head spin 3 times! Your documents are not real! Refused Zyprexa. Per nursing, pt urinated in carton in unit hallway;continues to refuse utilizing bathroom. Per nursing, pt did not eat anything today. 03/31: Pacing in front of nurses station. disheveled, malodorous; encouraged to shower, however pt declined despite being offered shower chair and staff member to wait outside shower room if assistance is needed. Per nursing, pt urinated in cup and sensory room floor last evening. Pt continues to report paranoia regarding using bathroom; pt stated, I'm worried someone will be in the bathroom waiting for me because of who I am . When asked why he believes someone would want to hurt him; pt stated, I can't discuss that . denies SI/HI/VH/AH. He reports not eating d/t concerns that he may be poisoned by someone ; observed drinking water from water bottle. Pt offered Zyprexa PO per court ordered treatment plan; per nursing, pt initially refused then agreed to take. 04/01: Patient continues to stand or pace in front of nurses station. disheveled, malodorous; per nursing, pt urinated in trash in [place] last evening. T/W spoke to patient regarding using restroom on unit; pt continues to report concern that someone can try to kill me because of who I am and who my family is ; when asked why someone would hurt him. Pt stated, because we are well known in [place] and they may hurt me because of it ; pt unable to specify who they are. denies AH/VH. Pt was offered for staff member to examine restroom and stand outside to assure no one is waiting for him; however pt continues to decline. Patient stated, I feel like you guys are playing a psychotic game with me or that they are doing this for their entertainment . 04/02: Patient continues to present similar to days prior. He continues to report paranoia regarding using restroom, shower and eating. Pt stated, I urinated in the trash early in the morning ; he continues to state he will consider using restroom. Pt reports taking bites of breakfast this morning. denies any side effects from Zyprexa other than feeling tired; pt stated, I am feeling a bit calmer . Per nursing, pt slept in chair in mil for 7 hours last night. Will continue to build rapport. 04/03: Patient continues to report paranoia regarding using restroom, shower and eating. Pt was offered single room d/t continuous urinating in [facility]; pt declined. Pt stated, I don't think a single room would help. I'm still having the same thoughts . Pt reports he has increased his fluid intake with water, juice and milk; however he continues to report only take a few bites of food. 04/04: Discussed medications increases with pt which he refuses at this time. Focused on discharge, and where his belongings are being stored at this time. 04/05: Patient declined to meet with T/W in unit office; pt stated, I don't feel comfortable going into the office because I think someone would hurt me ; pt reassured no one would hurt him, however, he continued to decline. Met with pt in unit hallway. Patient reports he did not urinate yesterday; he was educated regarding medical complications that can occur with decreased intake of fluids and food. Pt stated, I know but it's not like I'm dying . Pt refused labs. Discussed various solutions of pt feeling safe to use restroom or shower. pt stated, I'm still worried someone is going to hurt me. I'm not sure who, but it's because I am along the lines of royalty and it's putting me in harms way if I use the bathroom, shower or eat . Pt reporting zyprexa is making him too tired ; plan to DC. start risperidal 1mg PO daily with plan to switch to PLAZA; discussed with pt. T/W spoke to patient's mother, Chio, who reports has not left the house in 2 years and has not bathed or used the restroom in a year. She expressed concern over his wellbeing of not drinking or eating. She plans on calling patient to encourage him increase fluid intake. 04/07: Pt continues similar to days prior. Pt reports he did not urinate yesterday. Refused labs again. Hearing was held today; Pt was commited. T/W informed pt of plan to increase risperidal. Pt to receive additional risperidal 1mg PO bedtime dose to night. Starting tomorrow, Increase: Risperidal 2mg PO bedtime. 04/08: Staying in common area, however, keeping to self. per nursing, pt urinated in multiple cups last evening in common area and declined to use restroom. Pt reports feeling frustrated about not being discharged ; T/W discussed plan with medications again. Pt requesting to be discharged home today; asking multiple staff. Pt continues to report paranoia regarding using toilet, shower, eating/drinking. Encouraged to allow labs. 04/10: No changes. Encourage ongoing med adherence especially for Risperdal. Also encourage elevating legs as per hospitalist evaluation on 04/06/2024. Ordering an extra large compression stockings. 04/11: Met with pt in unit office. Continues to stay in common areas. paranoid. Pt discussed paranoia regarding eating; pt stated, how do you know someone isn't trying to poison me? People in this hospital. Per nursing, ate 10% of one meal yesterday and 25% of one meal today, has not eaten anything otherwise. Patient continues to refuse labs; shower (pt reports he has not bathed himself since admission and refusing to change clothes). Declining to use bathroom. perseverating on discharge to go back home where I can continue doing these things and be more comfortable . Continues similar to days prior; ? possible cheeking, will switch to risperidal liquid. Increase dose to Risperidal 3mg PO bedtime. Wound consult ordered for bilateral legs Patient educated on: diagnosis and medication risk/benefits Reason for continued inpatient stay Substantial Risk for: med/psych decompensation Time Spent With Patient Time: Total time managing care of this patient today _20___ minutes.
[2024-04-11] MEDS: Betamethasone Dip Aug 0.05% Cr 15 GM TUBE 1 APPL TOPICAL ×2 (14:46→20:43)
[2024-04-11] MEDS: Ammonium Lactate 12 % Cream 140 GM TUBE 1 APPL TOPICAL ×2 (14:46→20:44)
[2024-04-11 20:00] VITALS: RESP 16
[2024-04-11] MEDS: risperiDONE 3 MG TABLET PO (21:57)
--- NOTE | 2024-04-12 09:49 | P.PNPSI_ITS ---
Subjective Subjective Date of Service: 04/12/24 Reason For Visit: Schizophrenia Subjective Notes: Section 8 Interim History: Reviewed with Dr. Lorenzana. Met with pt in unit office. Continues to stay in common areas; declining to go into assigned room for any reason. He continues paranoid, anxious, fearful. Pt argumentative and requesting discharge since he has been able to meet with T/W in the unit office for the past 2 days. Discussed that pt does not allow for the door to be closed, continues with paranoia stating my safety is a concern if the door is closed . Declining bathroom and shower. Discussed change of medication to liquid d/t possible cheeking. Medication Compliance: Yes Side effects from medications: No Attending Groups: No Review of Systems Constitutional: Reports as per HPI Eyes: Reports as per HPI Reports as per HPI Cardiovascular: Reports as per HPI Respiratory: Reports as per HPI Gastrointestinal: Reports as per HPI Genitourinary: Reports as per HPI Musculoskeletal: Reports as per HPI Skin/Breast: Reports as per HPI Reports as per HPI Psychiatric: Reports as per HPI Endocrine: Reports as per HPI Hematologic/Lymphatic: Reports as per HPI Allergic/Immunologic: Reports as per HPI Mental Status Exam Mental Status Exam Narrative: Pt is alert and oriented; behavior is calm, guarded; dressed in hospital attire, malodorous, mood is described as okay ; eye contact appropriate; Speech is normal rate, volume and not pressured; focused on discharge; paranoid. no evidence of SI or HI. Insight and judgment is poor. Diagnostics Vital Signs (24Hr): Vital Signs - 24 hr 04/11/24 20:00 Respiratory Rate 16 BMI result Body Mass Index 25.4 Medications Medications Current Medications Acetaminophen (Acetaminophen 325 Mg Tablet) 650 mg PO Q6H PRN PRN Reason: Headache/Pain Mild Scale (1-3) Al Hydroxide/Mg Hydroxide (Magnesium Hydrox/Alum Hydrox 30 Ml Oral.Susp) 30 ml PO Q6H PRN PRN Reason: Heartburn/Nausea Benztropine Mesylate (Benztropine Mesylate 1 Mg Tablet) 1 mg PO DAILY PRN PRN Reason: Extrapyramidal Effects Betamethasone Dipropion Augmented (Betamethasone Dip Aug 0.05% Cr 15 Gm Tube) 1 appl TOPICAL BID LENI; Protocol Last Admin: 04/11/24 20:43 Dose: 1 appl Haloperidol Lactate (Haloperidol Lactate 5 Mg/Ml Vial) 5 mg IM DAILY PRN PRN Reason: Psychosis Hydroxyzine HCl (Hydroxyzine Hcl 25 Mg Tablet) 25 mg PO Q6H PRN PRN Reason: Anxiety Lactic Acid (Ammonium Lactate 12 % Cream 140 Gm Tube) 1 appl TOPICAL BID PRN; Protocol PRN Reason: Dry, scaly skin Last Admin: 04/11/24 20:44 Dose: 1 appl Lorazepam (Lorazepam 0.5 Mg Tablet) 0.5 mg PO BID [facility] Last Admin: 04/12/24 09:06 Dose: Not Given Magnesium Hydroxide (Milk Of Magnesia 30 Ml Oral.Susp) 30 ml PO DAILY PRN PRN Reason: Constipation Nicotine Polacrilex (Nicotine Polacrilex 2 Mg Gum) 4 mg BUCCAL Q2H PRN PRN Reason: Nicotine Cravings Risperidone (Risperidone Oral Kami 1 Mg/Ml Solution) 3 mg PO BEDTIME LENI Last Admin: 04/11/24 21:59 Dose: Not Given Trazodone HCl (Trazodone Hcl 50 Mg Tablet) 50 mg PO BEDTIME MRX1 PRN PRN Reason: Insomnia Allergies Allergies Allergy/AdvReac Type Severity Reaction Status Date / Time Unable to Assess Allergy Verified 03/25/24 21:15 Assessment & Plan Assessment & Plan (1) Schizophrenia: Status: Acute Code(s): F20.9 - Schizophrenia, unspecified Plan 03/26: risperidone /. collateral from mother. clarify legal circumstance/rolando's order. 03/27: refusing meds, not leaving his chair. urinating in cup beneath blanket. requesting immediate discharge. continue to offer medication. clarify legal circumstance and ability to involuntarily administer medication. diamond warning provided. 03/28: Sitting in chair in milieu. Per nursing, patient urinating in cups under blankets. Patient was notified that he must go to his room to use the toilet and can not urinate in common areas. Patient was able to walk down unit hallway with no assistance. Patient is requesting to have a wheelchair d/t being terrified of falling . Patient stated, I do not have any kind of condition. I am just worried about falling . Patient reports that he has not been eating much due to fear of being poisoned however, he would not elaborate as to who he believes is poisoning him. He reports at home he has been urinating in milk cartons and defecating in trash bags and having his mother dispose of these items. Patient agreed to take 1 mg of Risperdal PO; however, expressed paranoia towards RN about being a different medication/dosage despite being shown packaging. T/W obtained information from patient's mother, Chio; Chio reports patient has not been using the toilet for the past two years due to being afraid that snakes will get him and voices telling him the same. Chio reports, pt is also afraid of walking d/t fear of hitting his head. She reports patient has never been on antipsychotics and has only taken anti-anxiety medications for 3 weeks which patient discontinued. She denies history of inpatient psychiatric hospitalizations. She reports having guardianship due to patient being unable to care for self. 03/29: Observing pacing unit hallway. Keeping to self. Covering self with blanket. Per nursing, pt slept in chair in milieu for 5 hours last night. Refused medications last night and this morning. Pt reports he does not want to sleep in a bed d/t feeling more vulnerable when laying down . Patient reports he does not want to go into the bathroom because he is paranoid that something might happen in there or someone might be waiting for me in there . Pt's 3 day up 03/30/24; he is requesting to be discharged home. 03/30: Observed standing at nurses station throughout shift; not taking redirection from staff to please step away for pt confidentiality. Argumentative. 3 day up today; filed on; pt notified. Pt stated, you can't keep me here. I'm going to jose you and make your head spin 3 times! Your documents are not real! Refused Zyprexa. Per nursing, pt urinated in carton in unit hallway;continues to refuse utilizing bathroom. Per nursing, pt did not eat anything today. 03/31: Pacing in front of nurses station. disheveled, malodorous; encouraged to shower, however pt declined despite being offered shower chair and staff member to wait outside shower room if assistance is needed. Per nursing, pt urinated in cup and sensory room floor last evening. Pt continues to report paranoia regarding using bathroom; pt stated, I'm worried someone will be in the bathroom waiting for me because of who I am . When asked why he believes someone would want to hurt him; pt stated, I can't discuss that . denies SI/HI/VH/AH. He reports not eating d/t concerns that he may be poisoned by someone ; observed drinking water from water bottle. Pt offered Zyprexa PO per court ordered treatment plan; per nursing, pt initially refused then agreed to take. 04/01: Patient continues to stand or pace in front of nurses station. disheveled, malodorous; per nursing, pt urinated in trash in [facility] last evening. T/W spoke to patient regarding using restroom on unit; pt continues to report concern that someone can try to kill me because of who I am and who my family is ; when asked why someone would hurt him. Pt stated, because we are well known in [place] and they may hurt me because of it ; pt unable to specify who they are. denies AH/VH. Pt was offered for staff member to examine restroom and stand outside to assure no one is waiting for him; however pt continues to decline. Patient stated, I feel like you guys are playing a psychotic game with me or that they are doing this for their entertainment . 04/02: Patient continues to present similar to days prior. He continues to report paranoia regarding using restroom, shower and eating. Pt stated, I urinated in the trash early in the morning ; he continues to state he will consider using restroom. Pt reports taking bites of breakfast this morning. denies any side effects from Zyprexa other than feeling tired; pt stated, I am feeling a bit calmer . Per nursing, pt slept in chair in [facility] for 7 hours last night. Will continue to build rapport. 04/03: Patient continues to report paranoia regarding using restroom, shower and eating. Pt was offered single room d/t continuous urinating in [facility]; pt declined. Pt stated, I don't think a single room would help. I'm still having the same thoughts . Pt reports he has increased his fluid intake with water, juice and milk; however he continues to report only take a few bites of food. 04/04: Discussed medications increases with pt which he refuses at this time. Focused on discharge, and where his belongings are being stored at this time. 04/05: Patient declined to meet with T/W in unit office; pt stated, I don't feel comfortable going into the office because I think someone would hurt me ; pt reassured no one would hurt him, however, he continued to decline. Met with pt in unit hallway. Patient reports he did not urinate yesterday; he was educated regarding medical complications that can occur with decreased intake of fluids and food. Pt stated, I know but it's not like I'm dying . Pt refused labs. Discussed various solutions of pt feeling safe to use restroom or shower. pt stated, I'm still worried someone is going to hurt me. I'm not sure who, but it's because I am along the lines of royalty and it's putting me in harms way if I use the bathroom, shower or eat . Pt reporting zyprexa is making him too tired ; plan to DC. start risperidal 1mg PO daily with plan to switch to PLAZA; discussed with pt. T/W spoke to patient's mother, Chio, who reports has not left the house in 2 years and has not bathed or used the restroom in a year. She expressed concern over his wellbeing of not drinking or eating. She plans on calling patient to encourage him increase fluid intake. 04/07: Pt continues similar to days prior. Pt reports he did not urinate yesterday. Refused labs again. Hearing was held today; Pt was commited. T/W informed pt of plan to increase risperidal. Pt to receive additional risperidal 1mg PO bedtime dose to night. Starting tomorrow, Increase: Risperidal 2mg PO bedtime. 04/08: Staying in common area, however, keeping to self. per nursing, pt urinated in multiple cups last evening in common area and declined to use restroom. Pt reports feeling frustrated about not being discharged ; T/W discussed plan with medications again. Pt requesting to be discharged home today; asking multiple staff. Pt continues to report paranoia regarding using toilet, shower, eating/drinking. Encouraged to allow labs. 04/10: No changes. Encourage ongoing med adherence especially for Risperdal. Also encourage elevating legs as per hospitalist evaluation on 04/06/2024. Ordering an extra large compression stockings. 04/11: Met with pt in unit office. Continues to stay in common areas. paranoid. Pt discussed paranoia regarding eating; pt stated, how do you know someone isn't trying to poison me? People in this hospital. Per nursing, ate 10% of one meal yesterday and 25% of one meal today, has not eaten anything otherwise. Patient continues to refuse labs; shower (pt reports he has not bathed himself since admission and refusing to change clothes). Declining to use bathroom. perseverating on discharge to go back home where I can continue doing these things and be more comfortable . Continues similar to days prior; ? possible cheeking, will switch to risperidal liquid. Increase dose to Risperidal 3mg PO bedtime. Wound consult ordered for bilateral legs 04/12: Met with pt in unit office. Continues to stay in common areas; declining to go into assigned room for any reason. He continues paranoid, anxious, fearful. Pt argumentative and requesting discharge since he has been able to meet with T/W in the unit office for the past 2 days. Discussed that pt does not allow for the door to be closed, continues with paranoia stating my safety is a concern if the door is closed . Declining bathroom and shower. Discussed change of medication to liquid d/t possible cheeking. Patient educated on: diagnosis and medication risk/benefits Reason for continued inpatient stay Substantial Risk for: med/psych decompensation Time Spent With Patient Time: Total time managing care of this patient today _20___ minutes.
[2024-04-12] MEDS: Betamethasone Dip Aug 0.05% Cr 15 GM TUBE 1 APPL TOPICAL ×2 (12:41→22:42)
--- NOTE | 2024-04-12 15:37 | HO.WOUND ---
Wound Consult: Initial 38yr old?male admitted to [facility] [facility] on 03/25/24 to the Adult Behavioral Health Unit - See progress notes and H&P for detailed history.? Wound consult placed for Bilateral Lower legs.? Patient agreeable to assessment, patient was seen in the [facility] treatment room. Bilateral Lower legs noted for red swollen lower legs, on both legs there are thick hyperkeratotic patches, yellow guzmán in color. The patch is lifting and will likely be easily removed however the patient refused me to remove given he felt it would worsen. We discussed the plaques trapping moisture such as sweat and oil beneath and creating an open wound on the skin. He reports he prefers to keep the scaling patch in place. We discussed elevating his lower legs periodically throughout the day and to lay down to sleep, as this will aid in the swelling reduction. He would benefit from compression therapy - discussed with staff to investigate if Edema wear stockings can be ordered for his use. He would be size medium to start and then would likely be able to transition down to size small. These can be obtained from the following website. [email or web address] See photo in chart. Bilateral Lower Legs Etiology: Venous Dermatitis with hyperkeratotic plaque?? Wound Bed: no open wounds noted - there are lateral thick yellow plaques noted Drainage / Odor: None noted Edges: ? irregular Dianne wound: red swollen lower legs, +pp, denies neuropathy, No Induration, Fluctuance noted Pain: denies Goals of Treatment: ? Elevation and compression - continue with topical steroid ordered by provider and ammonium lactate cream / lotion per provider order. Recommendations: 1. Bilateral Lower Legs - Elevate lower legs at night and periodically throughout the day. Routine cleansing with soap and water (shower is best), pat dry. Apply topical steroid and Ammonium lactate per provider orders. If available: Edema Wear Compression Stockings ? Edema Wear compression garments should be applied first thing in the morning and may be removed at night when legs are elevated in bed.? Hand wash and hang dry.? Stockings should be worn from the base of the toes to just below the knee.? Fold over at end to prevent rolling.? They are disposable after about 2 weeks or regular use. Re-consult wound care Nurse for wound deterioration or wound changes.
[2024-04-12 20:00] VITALS: RESP 16
[2024-04-12] MEDS: risperiDONE Oral Sol 1 MG/ML SOLUTION 3 MG PO (20:43)
[2024-04-12] MEDS: Ammonium Lactate 12 % Cream 140 GM TUBE 1 APPL TOPICAL (22:43)
--- NOTE | 2024-04-13 09:39 | P.PNPSI_ITS ---
Subjective Subjective Date of Service: 04/13/24 Reason For Visit: Schizophrenia Subjective Notes: Section 8 Interim History: Reviewed with Dr. Lorenzana. Pt continues paranoid, anxious, fearful. T/W and social work specialist, Sabi, encouraged pt to walk into his room; lights were turned on to show no one was in the room and it was safe; however, pt continues to make paranoid statements of someone waiting to hurt him. Pt reports he did not urinate yesterday; discussed the importance of drinking fluids and eating meals. Per nursing, pt ate 5% of breakfast yesterday and declined lunch and dinner. Medication Compliance: Yes Side effects from medications: No Attending Groups: No Review of Systems Constitutional: Reports as per HPI Eyes: Reports as per HPI Reports as per HPI Cardiovascular: Reports as per HPI Respiratory: Reports as per HPI Gastrointestinal: Reports as per HPI Genitourinary: Reports as per HPI Musculoskeletal: Reports as per HPI Skin/Breast: Reports as per HPI Reports as per HPI Psychiatric: Reports as per HPI Endocrine: Reports as per HPI Hematologic/Lymphatic: Reports as per HPI Allergic/Immunologic: Reports as per HPI Mental Status Exam Mental Status Exam Narrative: Pt is alert and oriented; behavior is calm, guarded; dressed in hospital attire, malodorous, mood is described as okay ; eye contact appropriate; Speech is normal rate, volume and not pressured; focused on discharge; paranoid. no evidence of SI or HI. Insight and judgment is poor. Diagnostics Vital Signs (24Hr): Vital Signs - 24 hr 04/12/24 20:00 Respiratory Rate 16 BMI result Body Mass Index 25.4 Medications Medications Current Medications Acetaminophen (Acetaminophen 325 Mg Tablet) 650 mg PO Q6H PRN PRN Reason: Headache/Pain Mild Scale (1-3) Al Hydroxide/Mg Hydroxide (Magnesium Hydrox/Alum Hydrox 30 Ml Oral.Susp) 30 ml PO Q6H PRN PRN Reason: Heartburn/Nausea Benztropine Mesylate (Benztropine Mesylate 1 Mg Tablet) 1 mg PO DAILY PRN PRN Reason: Extrapyramidal Effects Betamethasone Dipropion Augmented (Betamethasone Dip Aug 0.05% Cr 15 Gm Tube) 1 appl TOPICAL BID LENI; Protocol Last Admin: 04/12/24 22:42 Dose: 1 appl Haloperidol Lactate (Haloperidol Lactate 5 Mg/Ml Vial) 5 mg IM DAILY PRN PRN Reason: Psychosis Hydroxyzine HCl (Hydroxyzine Hcl 25 Mg Tablet) 25 mg PO Q6H PRN PRN Reason: Anxiety Lactic Acid (Ammonium Lactate 12 % Cream 140 Gm Tube) 1 appl TOPICAL BID PRN; Protocol PRN Reason: Dry, scaly skin Last Admin: 04/12/24 22:43 Dose: 1 appl Lorazepam (Lorazepam 0.5 Mg Tablet) 0.5 mg PO BID LENI Last Admin: 04/12/24 20:49 Dose: Not Given Magnesium Hydroxide (Milk Of Magnesia 30 Ml Oral.Susp) 30 ml PO DAILY PRN PRN Reason: Constipation Nicotine Polacrilex (Nicotine Polacrilex 2 Mg Gum) 4 mg BUCCAL Q2H PRN PRN Reason: Nicotine Cravings Risperidone (Risperidone Oral Kami 1 Mg/Ml Solution) 3 mg PO BEDTIME LENI Last Admin: 04/12/24 20:43 Dose: 3 mg Trazodone HCl (Trazodone Hcl 50 Mg Tablet) 50 mg PO BEDTIME MRX1 PRN PRN Reason: Insomnia Allergies Allergies Allergy/AdvReac Type Severity Reaction Status Date / Time Unable to Assess Allergy Verified 03/25/24 21:15 Assessment & Plan Assessment & Plan (1) Schizophrenia: Status: Acute Code(s): F20.9 - Schizophrenia, unspecified Plan 03/26: risperidone /. collateral from mother. clarify legal circumstance/rolando's order. 03/27: refusing meds, not leaving his chair. urinating in cup beneath blanket. requesting immediate discharge. continue to offer medication. clarify legal circumstance and ability to involuntarily administer medication. diamond warning provided. 03/28: Sitting in chair in milieu. Per nursing, patient urinating in cups under blankets. Patient was notified that he must go to his room to use the toilet and can not urinate in common areas. Patient was able to walk down unit hallway with no assistance. Patient is requesting to have a wheelchair d/t being terrified of falling . Patient stated, I do not have any kind of condition. I am just worried about falling . Patient reports that he has not been eating much due to fear of being poisoned however, he would not elaborate as to who he believes is poisoning him. He reports at home he has been urinating in milk cartons and defecating in trash bags and having his mother dispose of these items. Patient agreed to take 1 mg of Risperdal PO; however, expressed paranoia towards RN about being a different medication/dosage despite being shown packaging. T/W obtained information from patient's mother, Chio; Chio reports patient has not been using the toilet for the past two years due to being afraid that snakes will get him and voices telling him the same. Chio reports, pt is also afraid of walking d/t fear of hitting his head. She reports patient has never been on antipsychotics and has only taken anti-anxiety medications for 3 weeks which patient discontinued. She denies history of inpatient psychiatric hospitalizations. She reports having guardianship due to patient being unable to care for self. 03/29: Observing pacing unit hallway. Keeping to self. Covering self with blanket. Per nursing, pt slept in chair in milieu for 5 hours last night. Refused medications last night and this morning. Pt reports he does not want to sleep in a bed d/t feeling more vulnerable when laying down . Patient reports he does not want to go into the bathroom because he is paranoid that something might happen in there or someone might be waiting for me in there . Pt's 3 day up 03/30/24; he is requesting to be discharged home. 03/30: Observed standing at nurses station throughout shift; not taking redirection from staff to please step away for pt confidentiality. Argumentative. 3 day up today; filed on; pt notified. Pt stated, you can't keep me here. I'm going to jose you and make your head spin 3 times! Your documents are not real! Refused Zyprexa. Per nursing, pt urinated in carton in unit hallway;continues to refuse utilizing bathroom. Per nursing, pt did not eat anything today. 03/31: Pacing in front of nurses station. disheveled, malodorous; encouraged to shower, however pt declined despite being offered shower chair and staff member to wait outside shower room if assistance is needed. Per nursing, pt urinated in cup and sensory room floor last evening. Pt continues to report paranoia regarding using bathroom; pt stated, I'm worried someone will be in the bathroom waiting for me because of who I am . When asked why he believes someone would want to hurt him; pt stated, I can't discuss that . denies SI/HI/VH/AH. He reports not eating d/t concerns that he may be poisoned by someone ; observed drinking water from water bottle. Pt offered Zyprexa PO per court ordered treatment plan; per nursing, pt initially refused then agreed to take. 04/01: Patient continues to stand or pace in front of nurses station. disheveled, malodorous; per nursing, pt urinated in trash in [facility] last evening. T/W spoke to patient regarding using restroom on unit; pt continues to report concern that someone can try to kill me because of who I am and who my family is ; when asked why someone would hurt him. Pt stated, because we are well known in [place] and they may hurt me because of it ; pt unable to specify who they are. denies AH/VH. Pt was offered for staff member to examine restroom and stand outside to assure no one is waiting for him; however pt continues to decline. Patient stated, I feel like you guys are playing a psychotic game with me or that they are doing this for their entertainment . 04/02: Patient continues to present similar to days prior. He continues to report paranoia regarding using restroom, shower and eating. Pt stated, I urinated in the trash early in the morning ; he continues to state he will consider using restroom. Pt reports taking bites of breakfast this morning. denies any side effects from Zyprexa other than feeling tired; pt stated, I am feeling a bit calmer . Per nursing, pt slept in chair in [facility] for 7 hours last night. Will continue to build rapport. 04/03: Patient continues to report paranoia regarding using restroom, shower and eating. Pt was offered single room d/t continuous urinating in [facility]; pt declined. Pt stated, I don't think a single room would help. I'm still having the same thoughts . Pt reports he has increased his fluid intake with water, juice and milk; however he continues to report only take a few bites of food. 04/04: Discussed medications increases with pt which he refuses at this time. Focused on discharge, and where his belongings are being stored at this time. 04/05: Patient declined to meet with T/W in unit office; pt stated, I don't feel comfortable going into the office because I think someone would hurt me ; pt reassured no one would hurt him, however, he continued to decline. Met with pt in unit hallway. Patient reports he did not urinate yesterday; he was educated regarding medical complications that can occur with decreased intake of fluids and food. Pt stated, I know but it's not like I'm dying . Pt refused labs. Discussed various solutions of pt feeling safe to use restroom or shower. pt stated, I'm still worried someone is going to hurt me. I'm not sure who, but it's because I am along the lines of royalty and it's putting me in harms way if I use the bathroom, shower or eat . Pt reporting zyprexa is making him too tired ; plan to DC. start risperidal 1mg PO daily with plan to switch to PLAZA; discussed with pt. T/W spoke to patient's mother, Chio, who reports has not left the house in 2 years and has not bathed or used the restroom in a year. She expressed concern over his wellbeing of not drinking or eating. She plans on calling patient to encourage him increase fluid intake. 04/07: Pt continues similar to days prior. Pt reports he did not urinate yesterday. Refused labs again. Hearing was held today; Pt was commited. T/W informed pt of plan to increase risperidal. Pt to receive additional risperidal 1mg PO bedtime dose to night. Starting tomorrow, Increase: Risperidal 2mg PO bedtime. 04/08: Staying in common area, however, keeping to self. per nursing, pt urinated in multiple cups last evening in common area and declined to use restroom. Pt reports feeling frustrated about not being discharged ; T/W discussed plan with medications again. Pt requesting to be discharged home today; asking multiple staff. Pt continues to report paranoia regarding using toilet, shower, eating/drinking. Encouraged to allow labs. 04/10: No changes. Encourage ongoing med adherence especially for Risperdal. Also encourage elevating legs as per hospitalist evaluation on 04/06/2024. Ordering an extra large compression stockings. 04/11: Met with pt in unit office. Continues to stay in common areas. paranoid. Pt discussed paranoia regarding eating; pt stated, how do you know someone isn't trying to poison me? People in this hospital. Per nursing, ate 10% of one meal yesterday and 25% of one meal today, has not eaten anything otherwise. Patient continues to refuse labs; shower (pt reports he has not bathed himself since admission and refusing to change clothes). Declining to use bathroom. perseverating on discharge to go back home where I can continue doing these things and be more comfortable . Continues similar to days prior; ? possible cheeking, will switch to risperidal liquid. Increase dose to Risperidal 3mg PO bedtime. Wound consult ordered for bilateral legs 04/12: Met with pt in unit office. Continues to stay in common areas; declining to go into assigned room for any reason. He continues paranoid, anxious, fearful. Pt argumentative and requesting discharge since he has been able to meet with T/W in the unit office for the past 2 days. Discussed that pt does not allow for the door to be closed, continues with paranoia stating my safety is a concern if the door is closed . Declining bathroom and shower. Discussed change of medication to liquid d/t possible cheeking. 04/13: Pt continues paranoid, anxious, fearful. T/W and social work specialist, Sabi, encouraged pt to walk into his room; lights were turned on to show no one was in the room and it was safe; however, pt continues to make paranoid statements of someone waiting to hurt him. Pt reports he did not urinate yesterday; discussed the importance of drinking fluids and eating meals. Per nursing, pt ate 5% of breakfast yesterday and declined lunch and dinner. Continue current tx plan. Patient educated on: diagnosis and medication risk/benefits Reason for continued inpatient stay Substantial Risk for: med/psych decompensation Time Spent With Patient Time: Total time managing care of this patient today _20___ minutes.
[2024-04-13 10:40] VITALS: BP 87/60; PULSE 80; RESP 14; TEMP 36.8; O2SAT 99
[2024-04-13] MEDS: Betamethasone Dip Aug 0.05% Cr 15 GM TUBE 1 APPL TOPICAL (12:10)
[2024-04-13 20:00] VITALS: BP 102/69; PULSE 100; RESP 16; TEMP 36.6; O2SAT 96
[2024-04-13] MEDS: risperiDONE Oral Sol 1 MG/ML SOLUTION 3 MG PO (21:33)
--- NOTE | 2024-04-14 04:42 | PC.NURSE ---
Randall was observed standing near the small group room for approximately 45 minutes during the evening. Multiple staff approached the patient to assist him if needed, each time the patient declined. When patient returned to the kitchen floor staff identified that the patient had urinated in a trash bucket in the small group room
[2024-04-14 07:00] VITALS: BMI 25.6
[2024-04-14 07:42] VITALS: BP 103/65; PULSE 81; RESP 18; TEMP 36.2; O2SAT 100
--- NOTE | 2024-04-14 09:25 | P.PNPSI_ITS ---
Subjective Subjective Date of Service: 04/14/24 Reason For Visit: Schizophrenia Subjective Notes: Section 8 Interim History: Reviewed with Dr. Lorenzana. Pt continues similar to days prior. Refusing to cross threshold into any room other than side office. Continues concerned that someone may hurt him if he goes into a room even if staff are with him. Per nursing, pt has not eaten or drank fluids today. He did urinate in trash can in the mileu and continues to refuse using restroom; despite having access to multiple bathrooms. Medication Compliance: Yes Side effects from medications: No Attending Groups: No Review of Systems Constitutional: Reports as per HPI Eyes: Reports as per HPI Reports as per HPI Cardiovascular: Reports as per HPI Respiratory: Reports as per HPI Gastrointestinal: Reports as per HPI Genitourinary: Reports as per HPI Musculoskeletal: Reports as per HPI Skin/Breast: Reports as per HPI Reports as per HPI Psychiatric: Reports as per HPI Endocrine: Reports as per HPI Hematologic/Lymphatic: Reports as per HPI Allergic/Immunologic: Reports as per HPI Mental Status Exam Mental Status Exam Narrative: Pt is alert and oriented; behavior is calm, guarded; dressed in hospital attire, malodorous, mood is described as okay ; eye contact appropriate; Speech is normal rate, volume and not pressured; focused on discharge; paranoid. no evidence of SI or HI. Insight and judgment is poor. Diagnostics Vital Signs (24Hr): Vital Signs - 24 hr 04/13/24 10:40 04/13/24 20:00 04/14/24 07:42 Temperature 98.2 F 97.8 F 97.2 F Pulse Rate 80 100 81 Respiratory Rate 14 16 18 Blood Pressure 87/60 L 102/69 103/65 Pulse Oximetry 99 96 100 Oxygen Delivery Method Room Air Room Air Room Air BMI result Body Mass Index 25.4 Medications Medications Current Medications Acetaminophen (Acetaminophen 325 Mg Tablet) 650 mg PO Q6H PRN PRN Reason: Headache/Pain Mild Scale (1-3) Al Hydroxide/Mg Hydroxide (Magnesium Hydrox/Alum Hydrox 30 Ml Oral.Susp) 30 ml PO Q6H PRN PRN Reason: Heartburn/Nausea Benztropine Mesylate (Benztropine Mesylate 1 Mg Tablet) 1 mg PO DAILY PRN PRN Reason: Extrapyramidal Effects Betamethasone Dipropion Augmented (Betamethasone Dip Aug 0.05% Cr 15 Gm Tube) 1 appl TOPICAL BID LENI; Protocol Last Admin: 04/13/24 21:45 Dose: Not Given Haloperidol Lactate (Haloperidol Lactate 5 Mg/Ml Vial) 5 mg IM DAILY PRN PRN Reason: Psychosis Hydroxyzine HCl (Hydroxyzine Hcl 25 Mg Tablet) 25 mg PO Q6H PRN PRN Reason: Anxiety Lactic Acid (Ammonium Lactate 12 % Cream 140 Gm Tube) 1 appl TOPICAL BID PRN; P rotocol PRN Reason: Dry, scaly skin Last Admin: 04/12/24 22:43 Dose: 1 appl Lorazepam (Lorazepam 0.5 Mg Tablet) 0.5 mg PO BID LENI Last Admin: 04/14/24 08:35 Dose: Not Given Magnesium Hydroxide (Milk Of Magnesia 30 Ml Oral.Susp) 30 ml PO DAILY PRN PRN Reason: Constipation Nicotine Polacrilex (Nicotine Polacrilex 2 Mg Gum) 4 mg BUCCAL Q2H PRN PRN Reason: Nicotine Cravings Risperidone (Risperidone Oral Kami 1 Mg/Ml Solution) 3 mg PO BEDTIME [facility] Last Admin: 04/13/24 21:33 Dose: 3 mg Trazodone HCl (Trazodone Hcl 50 Mg Tablet) 50 mg PO BEDTIME [id number] PRN PRN Reason: Insomnia Allergies Allergies Allergy/AdvReac Type Severity Reaction Status Date / Time Unable to Assess Allergy Verified 03/25/24 21:15 Assessment & Plan Assessment & Plan (1) Schizophrenia: Status: Acute Code(s): F20.9 - Schizophrenia, unspecified Plan 03/26: risperidone 1/2. collateral from mother. clarify legal circumstance/rolando's order. 03/27: refusing meds, not leaving his chair. urinating in cup beneath blanket. requesting immediate discharge. continue to offer medication. clarify legal circumstance and ability to involuntarily administer medication. diamond warning provided. 03/28: Sitting in chair in milieu. Per nursing, patient urinating in cups under blankets. Patient was notified that he must go to his room to use the toilet and can not urinate in common areas. Patient was able to walk down unit hallway with no assistance. Patient is requesting to have a wheelchair d/t being terrified of falling . Patient stated, I do not have any kind of condition. I am just worried about falling . Patient reports that he has not been eating much due to fear of being poisoned however, he would not elaborate as to who he believes is poisoning him. He reports at home he has been urinating in milk cartons and defecating in trash bags and having his mother dispose of these items. Patient agreed to take 1 mg of Risperdal PO; however, expressed paranoia towards RN about being a different medication/dosage despite being shown packaging. T/W obtained information from patient's mother, Chio; Chio reports patient has not been using the toilet for the past two years due to being afraid that snakes will get him and voices telling him the same. Chio reports, pt is also afraid of walking d/t fear of hitting his head. She reports patient has never been on antipsychotics and has only taken anti-anxiety medications for 3 weeks which patient discontinued. She denies history of inpatient psychiatric hospitalizations. She reports having guardianship due to patient being unable to care for self. 03/29: Observing pacing unit hallway. Keeping to self. Covering self with blanket. Per nursing, pt slept in chair in milieu for 5 hours last night. Refused medications last night and this morning. Pt reports he does not want to sleep in a bed d/t feeling more vulnerable when laying down . Patient reports he does not want to go into the bathroom because he is paranoid that something might happen in there or someone might be waiting for me in there . Pt's 3 day up 03/30/24; he is requesting to be discharged home. 03/30: Observed standing at nurses station throughout shift; not taking redirection from staff to please step away for pt confidentiality. Argumenta tive. 3 day up today; filed on; pt notified. Pt stated, you can't keep me here. I'm going to jose you and make your head spin 3 times! Your documents are not real! Refused Zyprexa. Per nursing, pt urinated in carton in unit hallway;continues to refuse utilizing bathroom. Per nursing, pt did not eat anything today. 03/31: Pacing in front of nurses station. disheveled, malodorous; encouraged to shower, however pt declined despite being offered shower chair and staff member to wait outside shower room if assistance is needed. Per nursing, pt urinated in cup and sensory room floor last evening. Pt continues to report paranoia regarding using bathroom; pt stated, I'm worried someone will be in the bathroom waiting for me because of who I am . When asked why he believes someone would want to hurt him; pt stated, I can't discuss that . denies SI/HI/VH/AH. He reports not eating d/t concerns that he may be poisoned by someone ; observed drinking water from water bottle. Pt offered Zyprexa PO per court ordered treatment plan; per nursing, pt initially refused then agreed to take. 04/01: Patient continues to stand or pace in front of nurses station. disheveled, malodorous; per nursing, pt urinated in trash in mil last evening. T/W spoke to patient regarding using restroom on unit; pt continues to report concern that someone can try to kill me because of who I am and who my family is ; when asked why someone would hurt him. Pt stated, because we are well known in [place] and they may hurt me because of it ; pt unable to specify who they are. denies AH/VH. Pt was offered for staff member to examine restroom and stand outside to assure no one is waiting for him; however pt continues to decline. Patient stated, I feel like you guys are playing a psychotic game with me or that they are doing this for their entertainment . 04/02: Patient continues to present similar to days prior. He continues to report paranoia regarding using restroom, shower and eating. Pt stated, I urinated in the trash early in the morning ; he continues to state he will consider using restroom. Pt reports taking bites of breakfast this morning. denies any side effects from Zyprexa other than feeling tired; pt stated, I am feeling a bit calmer . Per nursing, pt slept in chair in [facility] for 7 hours last night. Will continue to build rapport. 04/03: Patient continues to report paranoia regarding using restroom, shower and eating. Pt was offered single room d/t continuous urinating in [facility]; pt declined. Pt stated, I don't think a single room would help. I'm still having the same thoughts . Pt reports he has increased his fluid intake with water, juice and milk; however he continues to report only take a few bites of food. 04/04: Discussed medications increases with pt which he refuses at this time. Focused on discharge, and where his belongings are being stored at this time. 04/05: Patient declined to meet with T/W in unit office; pt stated, I don't feel comfortable going into the office because I think someone would hurt me ; pt reassured no one would hurt him, however, he continued to decline. Met with pt in unit hallway. Patient reports he did not urinate yesterday; he was educated regarding medical complications that can occur with decreased intake of fluids and food. Pt stated, I know but it's not like I'm dying . Pt refused labs. Discussed various solutions of pt feeling safe to use restroom or shower. pt stated, I'm still worried someone is going to hurt me. I'm not sure who, but it's because I am along the lines of royalty and it's putting me in harms way if I use the bathroom, shower or eat . Pt reporting zyprexa is making him too tired ; plan to DC. start risperidal 1mg PO daily with plan to switch to PLAZA; discussed with pt. T/W spoke to patient's mother, Chio, who reports has not left the house in 2 years and has not bathed or used the restroom in a year. She expressed concern over his wellbeing of not drinking or eating. She plans on calling patient to encourage him increase fluid intake. 04/07: Pt continues similar to days prior. Pt reports he did not urinate yesterday. Refused labs again. Hearing was held today; Pt was commited. T/W informed pt of plan to increase risperidal. Pt to receive additional risperidal 1mg PO bedtime dose to night. Starting tomorrow, Increase: Risperidal 2mg PO bedtime. 04/08: Staying in common area, however, keeping to self. per nursing, pt urinated in multiple cups last evening in common area and declined to use restroom. Pt reports feeling frustrated about not being discharged ; T/W discussed plan with medications again. Pt requesting to be discharged home today; asking multiple staff. Pt continues to report paranoia regarding using toilet, shower, eating/drinking. Encouraged to allow labs. 04/10: No changes. Encourage ongoing med adherence especially for Risperdal. Also encourage elevating legs as per hospitalist evaluation on 04/06/2024. Ordering an extra large compression stockings. 04/11: Met with pt in unit office. Continues to stay in common areas. paranoid. Pt discussed paranoia regarding eating; pt stated, how do you know someone isn't trying to poison me? People in this hospital. Per nursing, ate 10% of one meal yesterday and 25% of one meal today, has not eaten anything otherwise. Patient continues to refuse labs; shower (pt reports he has not bathed himself since admission and refusing to change clothes). Declining to use bathroom. perseverating on discharge to go back home where I can continue doing these things and be more comfortable . Continues similar to days prior; ? possible cheeking, will switch to risperidal liquid. Increase dose to Risperidal 3mg PO bedtime. Wound consult ordered for bilateral legs 04/12: Met with pt in unit office. Continues to stay in common areas; declining to go into assigned room for any reason. He continues paranoid, anxious, fearful. Pt argumentative and requesting discharge since he has been able to meet with T/W in the unit office for the past 2 days. Discussed that pt does not allow for the door to be closed, continues with paranoia stating my safety is a concern if the door is closed . Declining bathroom and shower. Discussed change of medication to liquid d/t possible cheeking. 04/13: Pt continues paranoid, anxious, fearful. T/W and older adult social work specialist, Sabi, encouraged pt to walk into his room; lights were turned on to show no one was in the room and it was safe; however, pt continues to make paranoid statements of someone waiting to hurt him. Pt reports he did not urinate yesterday; discussed the importance of drinking fluids and eating meals. Per nursing, pt ate 5% of breakfast yesterday and declined lunch and dinner. Continue current tx plan. 04/14: Pt continues similar to days prior. Refusing to cross threshold into any room other than side office. Continues concerned that someone may hurt him if he goes into a room even if staff are with him. Per nursing, pt has not eaten or drank fluids today. He did urinate in trash can in the mileu and continues to refuse using restroom; despite having access to multiple bathrooms. Continue current tx plan. Patient educated on: diagnosis, medication risk/benefits and therapeutic strategies Reason for continued inpatient stay Substantial Risk for: med/psych decompensation Time Spent With Patient Time: Total time managing care of this patient today _20___ minutes.
[2024-04-14 11:10] VITALS: BP 103/65; PULSE 81; RESP 18; TEMP 36.2; O2SAT 100
[2024-04-14] MEDS: Betamethasone Dip Aug 0.05% Cr 15 GM TUBE 1 APPL TOPICAL ×2 (15:22→21:06)
[2024-04-14 20:00] VITALS: BP 103/70; PULSE 90; TEMP 36.3; O2SAT 99
[2024-04-14] MEDS: risperiDONE Oral Sol 1 MG/ML SOLUTION 3 MG PO (21:06)
[2024-04-15 07:35] VITALS: BP 98/58; PULSE 88; RESP 14; TEMP 36.7; O2SAT 100
--- NOTE | 2024-04-15 09:19 | P.PNPSI_ITS ---
Subjective Subjective Date of Service: 04/15/24 Reason For Visit: Schizophrenia Subjective Notes: Section 8 Interim History: Reviewed with Dr. Lorenzana. T/W and RN attempting to reassure patient of his safety to be able to cross threshold into his room. Continues to believe someone may be hiding in the room to hurt him. Argumentative, attempting to change topic when asked questions about challenging his anxiety and paranoia. Per nursing, pt continues to have p oor intake. Pt reports he did not urinate yesterday. Medication Compliance: Yes Side effects from medications: No Attending Groups: No Review of Systems Constitutional: Reports as per HPI Eyes: Reports as per HPI Reports as per HPI Cardiovascular: Reports as per HPI Respiratory: Reports as per HPI Gastrointestinal: Reports as per HPI Genitourinary: Reports as per HPI Musculoskeletal: Reports as per HPI Skin/Breast: Reports as per HPI Reports as per HPI Psychiatric: Reports as per HPI Endocrine: Reports as per HPI Hematologic/Lymphatic: Reports as per HPI Allergic/Immunologic: Reports as per HPI Mental Status Exam Mental Status Exam Narrative: Pt is alert and oriented; behavior is calm, guarded, argumentative; dressed in hospital attire, malodorous, mood is described as okay ; eye contact appropriate; Speech is normal rate, volume and not pressured; focused on discharge; paranoid. denies SI/HI. Insight and judgment are poor. Diagnostics Vital Signs (24Hr): Vital Signs - 24 hr 04/14/24 11:10 04/14/24 20:00 04/15/24 07:35 Temperature 97.2 F 97.4 F 98.1 F Pulse Rate 81 90 88 Respiratory Rate 18 14 Blood Pressure 103/65 103/70 98/58 L Pulse Oximetry 100 99 100 Oxygen Delivery Method Room Air Room Air Room Air BMI result Body Mass Index 25.6 Medications Medications Current Medications Acetaminophen (Acetaminophen 325 Mg Tablet) 650 mg PO Q6H PRN PRN Reason: Headache/Pain Mild Scale (1-3) Al Hydroxide/Mg Hydroxide (Magnesium Hydrox/Alum Hydrox 30 Ml Oral.Susp) 30 ml PO Q6H PRN PRN Reason: Heartburn/Nausea Benztropine Mesylate (Benztropine Mesylate 1 Mg Tablet) 1 mg PO DAILY PRN PRN Reason: Extrapyramidal Effects Betamethasone Dipropion Augmented (Betamethasone Dip Aug 0.05% Cr 15 Gm Tube) 1 appl TOPICAL BID LENI; Protocol Last Admin: 04/14/24 21:06 Dose: 1 appl Haloperidol Lactate (Haloperidol Lactate 5 Mg/Ml Vial) 5 mg IM DAILY PRN PRN Reason: Psychosis Hydroxyzine HCl (Hydroxyzine Hcl 25 Mg Tablet) 25 mg PO Q6H PRN PRN Reason: Anxiety Lactic Acid (Ammonium Lactate 12 % Cream 140 Gm Tube) 1 appl TOPICAL BID PRN; Protocol PRN Reason: Dry, scaly skin Last Admin: 04/12/24 22:43 Dose: 1 appl Lorazepam (Lorazepam 0.5 Mg Tablet) 0.5 mg PO BID LENI Last Admin: 04/14/24 21:23 Dose: Not Given Magnesium Hydroxide (Milk Of Magnesia 30 Ml Oral.Susp) 30 ml PO DAILY PRN PRN Reason: Constipation Nicotine Polacrilex (Nicotine Polacrilex 2 Mg Gum) 4 mg BUCCAL Q2H PRN PRN Reason: Nicotine Cravings Risperidone (Risperidone Oral Kami 1 Mg/Ml Solution) 3 mg PO BEDTIME LENI Last Admin: 04/14/24 21:06 Dose: 3 mg Trazodone HCl (Trazodone Hcl 50 Mg Tablet) 50 mg PO BEDTIME MRX1 PRN PRN Reason: Insomnia Allergies Allergies Allergy/AdvReac Type Severity Reaction Status Date / Time Unable to Assess Allergy Verified 03/25/24 21:15 Assessment & Plan Assessment & Plan (1) Schizophrenia: Status: Acute Code(s): F20.9 - Schizophrenia, unspecified Plan 03/26: risperidone 1/2. collateral from mother. clarify legal circumstance/rolando's order. 03/27: refusing meds, not leaving his chair. urinating in cup beneath blanket. requesting immediate discharge. continue to offer medication. clarify legal circumstance and ability to involuntarily administer medication. diamond warning provided. 03/28: Sitting in chair in milieu. Per nursing, patient urinating in cups under blankets. Patient was notified that he must go to his room to use the toilet and can not urinate in common areas. Patient was able to walk down unit hallway with no assistance. Patient is requesting to have a wheelchair d/t being ter rified of falling . Patient stated, I do not have any kind of condition. I am just worried about falling . Patient reports that he has not been eating much due to fear of being poisoned however, he would not elaborate as to who he believes is poisoning him. He reports at home he has been urinating in milk cartons and defecating in trash bags and having his mother dispose of these items. Patient agreed to take 1 mg of Risperdal PO; however, expressed paranoia towards RN about being a different medication/dosage despite being shown packaging. T/W obtained information from patient's mother, Chio; Chio reports patient has not been using the toilet for the past two years due to being afraid that snakes will get him and voices telling him the same. Chio reports, pt is also afraid of walking d/t fear of hitting his head. She reports patient has never been on antipsychotics and has only taken anti-anxiety medications for 3 weeks which patient discontinued. She denies history of inpatient psychiatric hospitalizations. She reports having guardianship due to patient being unable to care for self. 03/29: Observing pacing unit hallway. Keeping to self. Covering self with blanket. Per nursing, pt slept in chair in milieu for 5 hours last night. Refused medications last night and this morning. Pt reports he does not want to sleep in a bed d/t feeling more vulnerable when laying down . Patient reports he does not want to go into the bathroom because he is paranoid that something might happen in there or someone might be waiting for me in there . Pt's 3 day up 03/30/24; he is requesting to be discharged home. 03/30: Observed standing at nurses station throughout shift; not taking redirection from staff to please step away for pt confidentiality. Argumentative. 3 day up today; filed on; pt notified. Pt stated, you can't keep me here. I'm going to jose you and make your head spin 3 times! Your documents are not real! Refused Zyprexa. Per nursing, pt urinated in carton in unit hallway;continues to refuse utilizing bathroom. Per nursing, pt did not eat anything today. 03/31: Pacing in front of nurses station. disheveled, malodorous; encouraged to shower, however pt declined despite being offered shower chair and staff member to wait outside shower room if assistance is needed. Per nursing, pt urinated in cup and sensory room floor last evening. Pt continues to report paranoia regarding using bathroom; pt stated, I'm worried someone will be in the bathroom waiting for me because of who I am . When asked why he believes someone would want to hurt him; pt stated, I can't discuss that . denies SI/HI/VH/AH. He reports not eating d/t concerns that he may be poisoned by someone ; observed drinking water from water bottle. Pt offered Zyprexa PO per court o rdered treatment plan; per nursing, pt initially refused then agreed to take. 04/01: Patient continues to stand or pace in front of nurses station. disheveled, malodorous; per nursing, pt urinated in trash in [facility] last evening. T/W spoke to patient regarding using restroom on unit; pt continues to report concern that someone can try to kill me because of who I am and who my family is ; when asked why someone would hurt him. Pt stated, because we are well known in [place] and they may hurt me because of it ; pt unable to specify who they are. denies AH/VH. Pt was offered for staff member to examine restroom and stand outside to assure no one is waiting for him; however pt continues to decline. Patient stated, I feel like you guys are playing a psychotic game with me or that they are doing this for their entertainment . 04/02: Patient continues to present similar to days prior. He continues to report paranoia regarding using restroom, shower and eating. Pt stated, I urinated in the trash early in the morning ; he continues to state he will consider using restroom. Pt reports taking bites of breakfast this morning. denies any side effects from Zyprexa other than feeling tired; pt stated, I am feeling a bit calmer . Per nursing, pt slept in chair in [facility] for 7 hours last night. Will continue to build rapport. 04/03: Patient continues to report paranoia regarding using restroom, shower and eating. Pt was offered single room d/t continuous urinating in [facility]; pt declined. Pt stated, I don't think a single room would help. I'm still having the same thoughts . Pt reports he has increased his fluid intake with water, juice and milk; however he continues to report only take a few bites of food. 04/04: Discussed medications increases with pt which he refuses at this time. Focused on discharge, and where his belongings are being stored at this time. 04/05: Patient declined to meet with T/W in unit office; pt stated, I don't feel comfortable going into the office because I think someone would hurt me ; pt reassured no one would hurt him, however, he continued to decline. Met with pt in unit hallway. Patient reports he did not urinate yesterday; he was educated regarding medical complications that can occur with decreased intake of fluids and food. Pt stated, I know but it's not like I'm dying . Pt refused labs. Discussed various solutions of pt feeling safe to use restroom or shower. pt stated, I'm still worried someone is going to hurt me. I'm not sure who, but it's because I am along the lines of royalty and it's putting me in harms way if I use the bathroom, shower or eat . Pt reporting zyprexa is making him too tired ; plan to DC. start risperidal 1mg PO daily with plan to switch to PLAZA; discussed with pt. T/W spoke to patient's mother, Chio, who reports has not left the house in 2 years and has not bathed or used the restroom in a year. She expressed concern over his wellbeing of not drinking or eating. She plans on calling patient to encourage him increase fluid intake. 04/07: Pt continues similar to days prior. Pt reports he did not urinate yesterday. Refused labs again. Hearing was held today; Pt was commited. T/W informed pt of plan to increase risperidal. Pt to receive additional risperidal 1mg PO bedtime dose to night. Starting tomorrow, Increase: Risperidal 2mg PO bedtime. 04/08: Staying in common area, however, keeping to self. per nursing, pt urinated in multiple cups last evening in common area and declined to use restroom. Pt reports feeling frustrated about not being discharged ; T/W discussed plan with medications again. Pt requesting to be discharged home today; asking multiple staff. Pt continues to report paranoia regarding using toilet, shower, eating/drinking. Encouraged to allow labs. 04/10: No changes. Encourage ongoing med adherence especially for Risperdal. Also encourage elevating legs as per hospitalist evaluation on 04/06/2024. Ordering an extra large compression stockings. 04/11: Met with pt in unit office. Continues to stay in common areas. paranoid. Pt discussed paranoia regarding eating; pt stated, how do you know someone isn't trying to poison me? People in this hospital. Per nursing, ate 10% of one meal yesterday and 25% of one meal today, has not eaten anything otherwise. Patient continues to refuse labs; shower (pt reports he has not bathed himself since admission and refusing to change clothes). Declining to use bathroom. perseverating on discharge to go back home where I can continue doing these things and be more comfortable . Continues similar to days prior; ? possible cheeking, will switch to risperidal liquid. Increase dose to Risperidal 3mg PO bedtime. Wound consult ordered for bilateral legs 04/12: Met with pt in unit office. Continues to stay in common areas; declining to go into assigned room for any reason. He continues paranoid, anxious, fearful. Pt argumentative and requesting discharge since he has been able to meet with T/W in the unit office for the past 2 days. Discussed that pt does not allow for the door to be closed, continues with paranoia stating my safety is a concern if the door is closed . Declining bathroom and shower. Discussed change of medication to liquid d/t possible cheeking. 04/13: Pt continues paranoid, anxious, fearful. T/W and social science analyst, Sabi, encouraged pt to walk into his room; lights were turned on to show no one was in the room and it was safe; however, pt continues to make paranoid statements of someone waiting to hurt him. Pt reports he did not urinate yesterday; discussed the importance of drinking fluids and eating meals. Per nursing, pt ate 5% of breakfast yesterday and declined lunch and dinner. Continue current tx plan. 04/14: Pt continues similar to days prior. Refusing to cross threshold into any room other than side office. Continues concerned that someone may hurt him if he goes into a room even if staff are with him. Per nursing, pt has not eaten or drank fluids today. He did urinate in trash can in the mileu and continues to refuse using restroom; despite having access to multiple bathrooms. Continue current tx plan. 04/15: T/W and RN attempting to reassure patient of his safety to be able to cross threshold into his room. Continues to believe someone may be hiding in the room to hurt him. Argumentative, attempting to change topic when asked questions about challenging his anxiety and paranoia. Per nursing, pt continues to have poor intake. Pt reports he did not urinate yesterday Patient educated on: diagnosis, medication risk/benefits and therapeutic strategies Reason for continued inpatient stay Substantial Risk for: med/psych decompensation Time Spent With Patient Time: Total time managing care of this patient today _20___ minutes.
[2024-04-15] MEDS: Betamethasone Dip Aug 0.05% Cr 15 GM TUBE 1 APPL TOPICAL ×2 (15:01→21:04)
[2024-04-15 20:00] VITALS: BP 102/64; PULSE 102; RESP 18; TEMP 36.4; O2SAT 96
[2024-04-15] MEDS: risperiDONE Oral Sol 1 MG/ML SOLUTION 3 MG PO (21:02)
--- NOTE | 2024-04-16 10:16 | HO.PSYCHPN ---
Subjective Subjective Date of Service: 04/16/24 Reason For Visit: Schizophrenia Interim History: as per nursing, urinated in the commode, which is a significant improvement. Spends most of his time in the common area. Did interview in interview room today. Flat. Less guarded. remains eager to return home with mom and encouraged to communicate with mom and treatment team. denied any issues regarding sleep, energy or appetite. Overall still paranoia but reluctant to give detail. No med concerns. Medication Compliance: Yes Side effects from medications: No Attending Groups: Intermittent Review of Systems Acute medical concerns: No Review of Systems Review of Systems no acute changes Mental Status Exam Mental Status Exam Narrative: Pt is alert and oriented; behavior is calm, guarded, argumentative; dressed in hospital attire, malodorous, mood is described as okay ; eye contact appropriate; Speech is normal rate, volume and not pressured; focused on discharge; paranoid. denies SI/HI. Insight and judgment are poor. Diagnostics Vital Signs (24Hr): Vital Signs - 24 hr 04/15/24 20:00 Temperature 97.6 F Pulse Rate 102 H Respiratory Rate 18 Blood Pressure 102/64 Pulse Oximetry 96 Oxygen Delivery Method Room Air BMI result Body Mass Index 25.6 Medications Medications Current Medications Acetaminophen (Acetaminophen 325 Mg Tablet) 650 mg PO Q6H PRN PRN Reason: Headache/Pain Mild Scale (1-3) Al Hydroxide/Mg Hydroxide (Magnesium Hydrox/Alum Hydrox 30 Ml Oral.Susp) 30 ml PO Q6H PRN PRN Reason: Heartburn/Nausea Benztropine Mesylate (Benztropine Mesylate 1 Mg Tablet) 1 mg PO DAILY PRN PRN Reason: Extrapyramidal Effects Betamethasone Dipropion Augmented (Betamethasone Dip Aug 0.05% Cr 15 Gm Tube) 1 appl TOPICAL BID LENI; Protocol Last Admin: 04/15/24 21:04 Dose: 1 appl Haloperidol Lactate (Haloperidol Lactate 5 Mg/Ml Vial) 5 mg IM DAILY PRN PRN Reason: Psychosis Hydroxyzine HCl (Hydroxyzine Hcl 25 Mg Tablet) 25 mg PO Q6H PRN PRN Reason: Anxiety Lactic Acid (Ammonium Lactate 12 % Cream 140 Gm Tube) 1 appl TOPICAL BID PRN; Protocol PRN Reason: Dry, scaly skin Last Admin: 04/12/24 22:43 Dose: 1 appl Lorazepam (Lorazepam 0.5 Mg Tablet) 0.5 mg PO BID [facility] Last Admin: 04/16/24 08:23 Dose: Not Given Magnesium Hydroxide (Milk Of Magnesia 30 Ml Oral.Susp) 30 ml PO DAILY PRN PRN Reason: Constipation Nicotine Polacrilex (Nicotine Polacrilex 2 Mg Gum) 4 mg BUCCAL Q2H PRN PRN Reason: Nicotine Cravings Risperidone (Risperidone Oral Kami 1 Mg/Ml Solution) 3 mg PO BEDTIME [facility] Last Admin: 04/15/24 21:02 Dose: 3 mg Trazodone HCl (Trazodone Hcl 50 Mg Tablet) 50 mg PO BEDTIME [id number] PRN PRN Reason: Insomnia Allergies Allergies Allergy/AdvReac Type Severity Reaction Status Date / Time Unable to Assess Allergy Verified 03/25/24 21:15 Assessment & Plan Assessment & Plan (1) Schizophrenia: Status: Acute Code(s): F20.9 - Schizophrenia, unspecified Plan 03/26: risperidone /. collateral from mother. clarify legal circumstance/rolando's order. 03/27: refusing meds, not leaving his chair. urinating in cup beneath blanket. requesting immediate discharge. continue to offer medication. clarify legal circumstance and ability to involuntarily administer medication. diamond warning provided. 03/28: Sitting in chair in milieu. Per nursing, patient urinating in cups under blankets. Patient was notified that he must go to his room to use the toilet and can not urinate in common areas. Patient was able to walk down unit hallway with no assistance. Patient is requesting to have a wheelchair d/t being terrified of falling . Patient stated, I do not have any kind of condition. I am just worried about falling . Patient reports that he has not been eating much due to fear of being poisoned however, he would not elaborate as to who he believes is poisoning him. He reports at home he has been urinating in milk cartons and defecating in trash bags and having his mother dispose of these items. Patient agreed to take 1 mg of Risperdal PO; however, expressed paranoia towards RN about being a different medication/dosage despite being shown packaging. T/W obtained information from patient's mother, Chio; Chio reports patient has not been using the toilet for the past two years due to being afraid that snakes will get him and voices telling him the same. Chio reports, pt is also afraid of walking d/t fear of hitting his head. She reports patient has never been on antipsychotics and has only taken anti-anxiety medications for 3 weeks which patient discontinued. She denies history of inpatient psychiatric hospitalizations. She reports having guardianship due to patient being unable to care for self. 03/29: Observing pacing unit hallway. Keeping to self. Covering self with blanket. Per nursing, pt slept in chair in milieu for 5 hours last night. Refused medications last night and this morning. Pt reports he does not want to sleep in a bed d/t feeling more vulnerable when laying down . Patient reports he does not want to go into the bathroom because he is paranoid that something might happen in there or someone might be waiting for me in there . Pt's 3 day up 03/30/24; he is requesting to be discharged home. 03/30: Observed standing at nurses station throughout shift; not taking redirection from staff to please step away for pt confidentiality. Argumentative. 3 day up today; filed on; pt notified. Pt stated, you can't keep me here. I'm going to jose you and make your head spin 3 times! Your documents are not real! Refused Zyprexa. Per nursing, pt urinated in carton in unit hallway;continues to refuse utilizing bathroom. Per nursing, pt did not eat anything today. 03/31: Pacing in front of nurses station. disheveled, malodorous; encouraged to shower, however pt declined despite being offered shower chair and staff member to wait outside shower room if assistance is needed. Per nursing, pt urinated in cup and sensory room floor last evening. Pt continues to report paranoia regarding using bathroom; pt stated, I'm worried someone will be in the bathroom waiting for me because of who I am . When asked why he believes someone would want to hurt him; pt stated, I can't discuss that . denies SI/HI/VH/AH. He reports not eating d/t concerns that he may be poisoned by someone ; observed drinking water from water bottle. Pt offered Zyprexa PO per court ordered treatment plan; per nursing, pt initially refused then agreed to take. 04/01: Patient continues to stand or pace in front of nurses station. disheveled, malodorous; per nursing, pt urinated in trash in [facility] last evening. T/W spoke to patient regarding using restroom on unit; pt continues to report concern that someone can try to kill me because of who I am and who my family is ; when asked why someone would hurt him. Pt stated, because we are well known in [place] and they may hurt me because of it ; pt unable to specify who they are. denies AH/VH. Pt was offered for staff member to examine restroom and stand outside to assure no one is waiting for him; however pt continues to decline. Patient stated, I feel like you guys are playing a psychotic game with me or that they are doing this for their entertainment . 04/02: Patient continues to present similar to days prior. He continues to report paranoia regarding using restroom, shower and eating. Pt stated, I urinated in the trash early in the morning ; he continues to state he will consider using restroom. Pt reports taking bites of breakfast this morning. denies any side effects from Zyprexa other than feeling tired; pt stated, I am feeling a bit calmer . Per nursing, pt slept in chair in [facility] for 7 hours last night. Will continue to build rapport. 04/03: Patient continues to report paranoia regarding using restroom, shower and eating. Pt was offered single room d/t continuous urinating in [facility]; pt declined. Pt stated, I don't think a single room would help. I'm still having the same thoughts . Pt reports he has increased his fluid intake with water, juice and milk; however he continues to report only take a few bites of food. 04/04: Discussed medications increases with pt which he refuses at this time. Focused on discharge, and where his belongings are being stored at this time. 04/05: Patient declined to meet with T/W in unit office; pt stated, I don't feel comfortable going into the office because I think someone would hurt me ; pt reassured no one would hurt him, however, he continued to decline. Met with pt in unit hallway. Patient reports he did not urinate yesterday; he was educated regarding medical complications that can occur with decreased intake of fluids and food. Pt stated, I know but it's not like I'm dying . Pt refused labs. Discussed various solutions of pt feeling safe to use restroom or shower. pt stated, I'm still worried someone is going to hurt me. I'm not sure who, but it's because I am along the lines of royalty and it's putting me in harms way if I use the bathroom, shower or eat . Pt reporting zyprexa is making him too tired ; plan to DC. start risperidal 1mg PO daily with plan to switch to PLAZA; discussed with pt. T/W spoke to patient's mother, Chio, who reports has not left the house in 2 years and has not bathed or used the restroom in a year. She expressed concern over his wellbeing of not drinking or eating. She plans on calling patient to encourage him increase fluid intake. 04/07: Pt continues similar to days prior. Pt reports he did not urinate yesterday. Refused labs again. Hearing was held today; Pt was commited. T/W informed pt of plan to increase risperidal. Pt to receive additional risperidal 1mg PO bedtime dose to night. Starting tomorrow, Increase: Risperidal 2mg PO bedtime. 04/08: Staying in common area, however, keeping to self. per nursing, pt urinated in multiple cups last evening in common area and declined to use restroom. Pt reports feeling frustrated about not being discharged ; T/W discussed plan with medications again. Pt requesting to be discharged home today; asking multiple staff. Pt continues to report paranoia regarding using toilet, shower, eating/drinking. Encouraged to allow labs. 04/10: No changes. Encourage ongoing med adherence especially for Risperdal. Also encourage elevating legs as per hospitalist evaluation on 04/06/2024. Ordering an extra large compression stockings. 04/11: Met with pt in unit office. Continues to stay in common areas. paranoid. Pt discussed paranoia regarding eating; pt stated, how do you know someone isn't trying to poison me? People in this hospital. Per nursing, ate 10% of one meal yesterday and 25% of one meal today, has not eaten anything otherwise. Patient continues to refuse labs; shower (pt reports he has not bathed himself since admission and refusing to change clothes). Declining to use bathroom. perseverating on discharge to go back home where I can continue doing these things and be more comfortable . Continues similar to days prior; ? possible cheeking, will switch to risperidal liquid. Increase dose to Risperidal 3mg PO bedtime. Wound consult ordered for bilateral legs 04/12: Met with pt in unit office. Continues to stay in common areas; declining to go into assigned room for any reason. He continues paranoid, anxious, fearful. Pt argumentative and requesting discharge since he has been able to meet with T/W in the unit office for the past 2 days. Discussed that pt does not allow for the door to be closed, continues with paranoia stating my safety is a concern if the door is closed . Declining bathroom and shower. Discussed change of medication to liquid d/t possible cheeking. 04/13: Pt continues paranoid, anxious, fearful. T/W and social work supervisor, Sabi, encouraged pt to walk into his room; lights were turned on to show no one was in the room and it was safe; however, pt continues to make paranoid statements of someone waiting to hurt him. Pt reports he did not urinate yesterday; discussed the importance of drinking fluids and eating meals. Per nursing, pt ate 5% of breakfast yesterday and declined lunch and dinner. Continue current tx plan. 04/14: Pt continues similar to days prior. Refusing to cross threshold into any room other than side office. Continues concerned that someone may hurt him if he goes into a room even if staff are with him. Per nursing, pt has not eaten or drank fluids today. He did urinate in trash can in the mileu and continues to refuse using restroom; despite having access to multiple bathrooms. Continue current tx plan. 04/15: T/W and RN attempting to reassure patient of his safety to be able to cross threshold into his room. Continues to believe someone may be hiding in the room to hurt him. Argumentative, attempting to change topic when asked questions about challenging his anxiety and paranoia. Per nursing, pt continues to have poor intake. Pt reports he did not urinate yesterday 04/16/2024: No changes Reason for continued inpatient stay Substantial Risk for: inability to function Time Spent With Patient Time: Total time managing care of this patient today ____ minutes.
--- NOTE | 2024-04-16 11:01 | PC.NURSE ---
Pt refused VS check for day shift. This manual writer documented that incorrectly, as she stated that it was documented previously , incorrectly.
[2024-04-16] MEDS: Betamethasone Dip Aug 0.05% Cr 15 GM TUBE 1 APPL TOPICAL ×2 (12:40→20:12)
[2024-04-16] MEDS: Ammonium Lactate 12 % Cream 140 GM TUBE 1 APPL TOPICAL (12:40)
[2024-04-16] MEDS: risperiDONE Oral Sol 1 MG/ML SOLUTION 3 MG PO (20:19)
[2024-04-17 08:57] VITALS: BP 96/67; PULSE 70; RESP 16; TEMP 36.2; O2SAT 100
--- NOTE | 2024-04-17 10:26 | P.PNPSI_ITS ---
Subjective Subjective Date of Service: 04/17/24 Reason For Visit: Schizophrenia Medical Problems Affecting Mental Status: No Interim History: No major changes. Continues to spend time in common area. Less guarded. Denied any issues regarding sleep, energy or appetite. Overall still paranoia. No med concerns. Remains eager to return home with mom and encouraged to communicate with mom and treatment team. Medication Compliance: Yes Side effects from medications: No Attending Groups: Yes Review of Systems Acute medical concerns: No Review of Systems Review of Systems no acute changes Mental Status Exam Mental Status Exam Narrative: Pt is alert and oriented; behavior is calm, less guarded, dressed in hospital attire, , mood is described as okay ; eye contact appropriate; Speech is normal rate, volume and not pressured; focused on discharge; paranoid. denies SI/HI. Insight and judgment are poor. Diagnostics Vital Signs (24Hr): Vital Signs - 24 hr 04/17/24 08:57 Temperature 97.1 F Pulse Rate 70 Respiratory Rate 16 Blood Pressure 96/67 Pulse Oximetry 100 Oxygen Delivery Method Room Air BMI result Body Mass Index 25.6 Medications Medications Current Medications Acetaminophen (Acetaminophen 325 Mg Tablet) 650 mg PO Q6H PRN PRN Reason: Headache/Pain Mild Scale (1-3) Al Hydroxide/Mg Hydroxide (Magnesium Hydrox/Alum Hydrox 30 Ml Oral.Susp) 30 ml PO Q6H PRN PRN Reason: Heartburn/Nausea Benztropine Mesylate (Benztropine Mesylate 1 Mg Tablet) 1 mg PO DAILY PRN PRN Reason: Extrapyramidal Effects Betamethasone Dipropion Augmented (Betamethasone Dip Aug 0.05% Cr 15 Gm Tube) 1 appl TOPICAL BID LENI; Protocol Last Admin: 04/16/24 20:12 Dose: 1 appl Haloperidol Lactate (Haloperidol Lactate 5 Mg/Ml Vial) 5 mg IM DAILY PRN PRN Reason: Psychosis Hydroxyzine HCl (Hydroxyzine Hcl 25 Mg Tablet) 25 mg PO Q6H PRN PRN Reason: Anxiety Lactic Acid (Ammonium Lactate 12 % Cream 140 Gm Tube) 1 appl TOPICAL BID PRN; Protocol PRN Reason: Dry, scaly skin Last Admin: 04/16/24 12:40 Dose: 1 appl Lorazepam (Lorazepam 0.5 Mg Tablet) 0.5 mg PO BID LENI Last Admin: 04/17/24 08:47 Dose: Not Given Magnesium Hydroxide (Milk Of Magnesia 30 Ml Oral.Susp) 30 ml PO DAILY PRN PRN Reason: Constipation Nicotine Polacrilex (Nicotine Polacrilex 2 Mg Gum) 4 mg BUCCAL Q2H PRN PRN Reason: Nicotine Cravings Risperidone (Risperidone Oral Kami 1 Mg/Ml Solution) 3 mg PO BEDTIME LENI Last Admin: 04/16/24 20:19 Dose: 3 mg Trazodone HCl (Trazodone Hcl 50 Mg Tablet) 50 mg PO BEDTIME MRX1 PRN PRN Reason: Insomnia Allergies Allergies Allergy/AdvReac Type Severity Reaction Status Date / Time Unable to Assess Allergy Verified 03/25/24 21:15 Assessment & Plan Assessment & Plan (1) Schizophrenia: Status: Acute Code(s): F20.9 - Schizophrenia, unspecified Plan 03/26: risperidone 05/05. collateral from mother. clarify legal circumstance/rolando's order. 03/27: refusing meds, not leaving his chair. urinating in cup beneath blanket. requesting immediate discharge. continue to offer medication. clarify legal circumstance and ability to involuntarily administer medication. diamond warning provided. 03/28: Sitting in chair in milieu. Per nursing, patient urinating in cups under blankets. Patient was notified that he must go to his room to use the toilet and can not urinate in common areas. Patient was able to walk down unit hallway with no assistance. Patient is requesting to have a wheelchair d/t being terrified of falling . Patient stated, I do not have any kind of condition. I am just worried about falling . Patient reports that he has not been eating much due to fear of being poisoned however, he would not elaborate as to who he believes is poisoning him. He reports at home he has been urinating in milk cartons and defecating in trash bags and having his mother dispose of these items. Patient agreed to take 1 mg of Risperdal PO; however, expressed paranoia towards RN about being a different medication/dosage despite being shown packaging. T/W obtained information from patient's mother, Chio; Chio reports patient has not been using the toilet for the past two years due to being afraid that snakes will get him and voices telling him the same. Chio reports, pt is also afraid of walking d/t fear of hitting his head. She reports patient has never been on antipsychotics and has only taken anti-anxiety medications for 3 weeks which patient discontinued. She denies history of inpatient psychiatric hospitalizations. She reports having guardianship due to patient being unable to care for self. 03/29: Observing pacing unit hallway. Keeping to self. Covering self with blanket. Per nursing, pt slept in chair in milieu for 5 hours last night. Refused medications last night and this morning. Pt reports he does not want to sleep in a bed d/t feeling more vulnerable when laying down . Patient reports he does not want to go into the bathroom because he is paranoid that something might happen in there or someone might be waiting for me in there . Pt's 3 day up 03/30/24; he is requesting to be discharged home. 03/30: Observed standing at nurses station throughout shift; not taking redirection from staff to please step away for pt confidentiality. Arg umentative. 3 day up today; filed on; pt notified. Pt stated, you can't keep me here. I'm going to jose you and make your head spin 3 times! Your documents are not real! Refused Zyprexa. Per nursing, pt urinated in carton in unit hallway;continues to refuse utilizing bathroom. Per nursing, pt did not eat anything today. 03/31: Pacing in front of nurses station. disheveled, malodorous; encouraged to shower, however pt declined despite being offered shower chair and staff member to wait outside shower room if assistance is needed. Per nursing, pt urinated in cup and sensory room floor last evening. Pt continues to report paranoia regarding using bathroom; pt stated, I'm worried someone will be in the bathroom waiting for me because of who I am . When asked why he believes someone would want to hurt him; pt stated, I can't discuss that . denies SI/HI/VH/AH. He reports not eating d/t concerns that he may be poisoned by someone ; observed drinking water from water bottle. Pt offered Zyprexa PO per court ordered treatment plan; per nursing, pt initially refused then agreed to take. 04/01: Patient continues to stand or pace in front of nurses station. disheveled, malodorous; per nursing, pt urinated in trash in [facility] last evening. T/W spoke to patient regarding using restroom on unit; pt continues to report concern that someone can try to kill me because of who I am and who my family is ; when asked why someone would hurt him. Pt stated, because we are well known in [place] and they may hurt me because of it ; pt unable to specify who they are. denies AH/VH. Pt was offered for staff member to examine restroom and stand outside to assure no one is waiting for him; however pt continues to decline. Patient stated, I feel like you guys are playing a psychotic game with me or that they are doing this for their entertainment . 04/02: Patient continues to present similar to days prior. He continues to report paranoia regarding using restroom, shower and eating. Pt stated, I urinated in the trash early in the morning ; he continues to state he will consider using restroom. Pt reports taking bites of breakfast this morning. denies any side effects from Zyprexa other than feeling tired; pt stated, I am feeling a bit calmer . Per nursing, pt slept in chair in [facility] for 7 hours last night. Will continue to build rapport. 04/03: Patient continues to report paranoia regarding using restroom, shower and eating. Pt was offered single room d/t continuous urinating in [facility]; pt declined. Pt stated, I don't think a single room would help. I'm still having the same thoughts . Pt reports he has increased his fluid intake with water, juice and milk; however he continues to report only take a few bites of food. 04/04: Discussed medications increases with pt which he refuses at this time. Focused on discharge, and where his belongings are being stored at this time. 04/05: Patient declined to meet with T/W in unit office; pt stated, I don't feel comfortable going into the office because I think someone would hurt me ; pt reassured no one would hurt him, however, he continued to decline. Met with pt in unit hallway. Patient reports he did not urinate yesterday; he was educated regarding medical complications that can occur with decreased intake of fluids and food. Pt stated, I know but it's not like I'm dying . Pt refused labs. Discussed various solutions of pt feeling safe to use restroom or shower. pt stated, I'm still worried someone is going to hurt me. I'm not sure who, but it's because I am along the lines of royalty and it's putting me in harms way if I use the bathroom, shower or eat . Pt reporting zyprexa is making him too tired ; plan to DC. start risperidal 1mg PO daily with plan to switch to PLAZA; discussed with pt. T/W spoke to patient's mother, Chio, who reports has not left the house in 2 years and has not bathed or used the restroom in a year. She expressed concern over his wellbeing of not drinking or eating. She plans on calling patient to encourage him increase fluid intake. 04/07: Pt continues similar to days prior. Pt reports he did not urinate yesterday. Refused labs again. Hearing was held today; Pt was commited. T/W informed pt of plan to increase risperidal. Pt to receive additional risperidal 1mg PO bedtime dose to night. Starting tomorrow, Increase: Risperidal 2mg PO bedtime. 04/08: Staying in common area, however, keeping to self. per nursing, pt urinated in multiple cups last evening in common area and declined to use restroom. Pt reports feeling frustrated about not being discharged ; T/W discussed plan with medications again. Pt requesting to be discharged home today; asking multiple staff. Pt continues to report paranoia regarding using toilet, shower, eating/drinking. Encouraged to allow labs. 04/10: No changes. Encourage ongoing med adherence especially for Risperdal. Also encourage elevating legs as per hospitalist evaluation on 04/06/2024. Ordering an extra large compression stockings. 04/11: Met with pt in unit office. Continues to stay in common areas. paranoid. Pt discussed paranoia regarding eating; pt stated, how do you know someone isn't trying to poison me? People in this hospital. Per nursing, ate 10% of one meal yesterday and 25% of one meal today, has not eaten anything otherwise. Patient continues to refuse labs; shower (pt reports he has not bathed himself since admission and refusing to change clothes). Declining to use bathroom. perseverating on discharge to go back home where I can continue doing these things and be more comfortable . Continues similar to days prior; ? possible cheeking, will switch to risperidal liquid. Increase dose to Risperidal 3mg PO bedtime. Wound consult ordered for bilateral legs 04/12: Met with pt in unit office. Continues to stay in common areas; declining to go into assigned room for any reason. He continues paranoid, anxious, fearful. Pt argumentative and requesting discharge since he has been able to m eet with T/W in the unit office for the past 2 days. Discussed that pt does not allow for the door to be closed, continues with paranoia stating my safety is a concern if the door is closed . Declining bathroom and shower. Discussed change of medication to liquid d/t possible cheeking. 04/13: Pt continues paranoid, anxious, fearful. T/W and certified social workers in health care, Sabi, encouraged pt to walk into his room; lights were turned on to show no one was in the room and it was safe; however, pt continues to make paranoid statements of someone waiting to hurt him. Pt reports he did not urinate yesterday; dis cussed the importance of drinking fluids and eating meals. Per nursing, pt ate 5% of breakfast yesterday and declined lunch and dinner. Continue current tx plan. 04/14: Pt continues similar to days prior. Refusing to cross threshold into any room other than side office. Continues concerned that someone may hurt him if he goes into a room even if staff are with him. Per nursing, pt has not eaten or drank fluids today. He did urinate in trash can in the [facility] and continues to refuse using restroom; despite having access to multiple bathrooms. Continue current tx plan. 04/15: T/W and RN attempting to reassure patient of his safety to be able to cross threshold into his room. Continues to believe someone may be hiding in the room to hurt him. Argumentative, attempting to change topic when asked questions about challenging his anxiety and paranoia. Per nursing, pt continues to have poor intake. Pt reports he did not urinate yesterday 04/17/2024: No changes Reason for continued inpatient stay Substantial Risk for: rapid decompensation Time Spent With Patient Time: Total time managing care of this patient today ____ minutes.
[2024-04-17] MEDS: Betamethasone Dip Aug 0.05% Cr 15 GM TUBE 1 APPL TOPICAL ×2 (13:09→23:07)
--- NOTE | 2024-04-17 14:01 | PC.NURSE ---
Pt requested a urinal to use and was provided a commode in the shower room per plan. Pt urinated 1000cc of dark concentrated urine in commode. Pt had requested to use it in the hallway, but accepted using it just inside the doorway with the door open and TW holding a blanket up for privacy. Pt ate 10% of breakfast and lunch.
[2024-04-17 19:15] VITALS: BP 91/61; PULSE 110; RESP 16; TEMP 36.5; O2SAT 99
[2024-04-17] MEDS: risperiDONE Oral Sol 1 MG/ML SOLUTION 3 MG PO (22:59)
[2024-04-18 07:15] VITALS: BP 95/54; PULSE 78; RESP 14; TEMP 36.4; O2SAT 100
--- NOTE | 2024-04-18 09:14 | HO.PSYCHPN ---
Subjective Subjective Date of Service: 04/18/24 Reason For Visit: Schizophrenia Subjective Notes: Section 8 Interim History: Met with Dr. Lorenzana present. Pt continues to decline to go into bedroom or restroom; was willing to meet in side office with door open. He continues to discuss his anxiety and paranoia regarding being attacked by someone or snakes . Pt states he does not believe to have a mental illness ; requesting to be discharged home. Pt re-educated on goal of treatment. Medication Compliance: Yes Side effects from medications: No Attending Groups: No Review of Systems Constitutional: Reports as per HPI Eyes: Reports as per HPI Reports as per HPI Cardiovascular: Reports as per HPI Respiratory: Reports as per HPI Gastrointestinal: Reports as per HPI Genitourinary: Reports as per HPI Musculoskeletal: Reports as per HPI Skin/Breast: Reports as per HPI Reports as per HPI Psychiatric: Reports as per HPI Endocrine: Reports as per HPI Hematologic/Lymphatic: Reports as per HPI Allergic/Immunologic: Reports as per HPI Mental Status Exam Mental Status Exam Narrative: Pt is alert and oriented; behavior is calm, less guarded; dressed in hospital attire, malodorous, disheveled; mood is described as okay ; eye contact appropriate; Speech is normal rate, volume and not pressured; focused on discharge; paranoid. denies SI/HI. Insight and judgment are poor. Diagnostics Vital Signs (24Hr): Vital Signs - 24 hr 04/17/24 19:15 04/18/24 07:15 Temperature 97.7 F 97.5 F Pulse Rate 110 H 78 Respiratory Rate 16 14 Blood Pressure 91/61 95/54 L Pulse Oximetry 99 100 Oxygen Delivery Method Room Air Room Air BMI result Body Mass Index 25.6 Medications Medications Current Medications Acetaminophen (Acetaminophen 325 Mg Tablet) 650 mg PO Q6H PRN PRN Reason: Headache/Pain Mild Scale (1-3) Al Hydroxide/Mg Hydroxide (Magnesium Hydrox/Alum Hydrox 30 Ml Oral.Susp) 30 ml PO Q6H PRN PRN Reason: Heartburn/Nausea Benztropine Mesylate (Benztropine Mesylate 1 Mg Tablet) 1 mg PO DAILY PRN PRN Reason: Extrapyramidal Effects Betamethasone Dipropion Augmented (Betamethasone Dip Aug 0.05% Cr 15 Gm Tube) 1 appl TOPICAL BID LENI; Protocol Last Admin: 04/17/24 23:07 Dose: 1 appl Haloperidol Lactate (Haloperidol Lactate 5 Mg/Ml Vial) 5 mg IM DAILY PRN PRN Reason: Psychosis Hydroxyzine HCl (Hydroxyzine Hcl 25 Mg Tablet) 25 mg PO Q6H PRN PRN Reason: Anxiety Lactic Acid (Ammonium Lactate 12 % Cream 140 Gm Tube) 1 appl TOPICAL BID PRN; Protocol PRN Reason: Dry, scaly skin Last Admin: 04/16/24 12:40 Dose: 1 appl Lorazepam (Lorazepam 0.5 Mg Tablet) 0.5 mg PO BID [facility] Last Admin: 04/18/24 08:01 Dose: Not Given Magnesium Hydroxide (Milk Of Magnesia 30 Ml Oral.Susp) 30 ml PO DAILY PRN PRN Reason: Constipation Nicotine Polacrilex (Nicotine Polacrilex 2 Mg Gum) 4 mg BUCCAL Q2H PRN PRN Reason: Nicotine Cravings Risperidone (Risperidone Oral Kami 1 Mg/Ml Solution) 3 mg PO BEDTIME LENI Last Admin: 04/17/24 22:59 Dose: 3 mg Trazodone HCl (Trazodone Hcl 50 Mg Tablet) 50 mg PO BEDTIME MRX1 PRN PRN Reason: Insomnia Allergies Allergies Allergy/AdvReac Type Severity Reaction Status Date / Time Unable to Assess Allergy Verified 03/25/24 21:15 Assessment & Plan Assessment & Plan (1) Schizophrenia: Status: Acute Code(s): F20.9 - Schizophrenia, unspecified Plan 03/26: risperidone /. collateral from mother. clarify legal circumstance/rolando's order. 03/27: refusing meds, not leaving his chair. urinating in cup beneath blanket. requesting immediate discharge. continue to offer medication. clarify legal circumstance and ability to involuntarily administer medication. diamond warning provided. 03/28: Sitting in chair in milieu. Per nursing, patient urinating in cups under blankets. Patient was notified that he must go to his room to use the toilet and can not urinate in common areas. Patient was able to walk down unit hallway with no assistance. Patient is requesting to have a wheelchair d/t being terrified of falling . Patient stated, I do not have any kind of condition. I am just worried about falling . Patient reports that he has not been eating much due to fear of being poisoned however, he would not elaborate as to who he believes is poisoning him. He reports at home he has been urinating in milk cartons and defecating in trash bags and having his mother dispose of these items. Patient agreed to take 1 mg of Risperdal PO; however, expressed paranoia towards RN about being a different medication/dosage despite being shown packaging. T/W obtained information from patient's mother, Chio; Chio reports patient has not been using the toilet for the past two years due to being afraid that snakes will get him and voices telling him the same. Chio reports, pt is also afraid of walking d/t fear of hitting his head. She reports patient has never been on antipsychotics and has only taken anti-anxiety medications for 3 weeks which patient discontinued. She denies history of inpatient psychiatric hospitalizations. She reports having guardianship due to patient being unable to care for self. 03/29: Observing pacing unit hallway. Keeping to self. Covering self with blanket. Per nursing, pt slept in chair in milieu for 5 hours last night. Refused medications last night and this morning. Pt reports he does not want to sleep in a bed d/t feeling more vulnerable when laying down . Patient reports he does not want to go into the bathroom because he is paranoid that something might happen in there or someone might be waiting for me in there . Pt's 3 day up 03/30/24; he is requesting to be discharged home. 03/30: Observed standing at nurses station throughout shift; not taking redirection from staff to please step away for pt confidentiality. Argumentative. 3 day up today; filed on; pt notified. Pt stated, you can't keep me here. I'm going to jose you and make your head spin 3 times! Your documents are not real! Refused Zyprexa. Per nursing, pt urinated in carton in unit hallway;continues to refuse utilizing bathroom. Per nursing, pt did not eat anything today. 03/31: Pacing in front of nurses station. disheveled, malodorous; encouraged to shower, however pt declined despite being offered shower chair and staff member to wait outside shower room if assistance is needed. Per nursing, pt urinated in cup and sensory room floor last evening. Pt continues to report paranoia regarding using bathroom; pt stated, I'm worried someone will be in the bathroom waiting for me because of who I am . When asked why he believes someone would want to hurt him; pt stated, I can't discuss that . denies SI/HI/VH/AH. He reports not eating d/t concerns that he may be poisoned by someone ; observed drinking water from water bottle. Pt offered Zyprexa PO per court ordered treatment plan; per nursing, pt initially refused then agreed to take. 04/01: Patient continues to stand or pace in front of nurses station. disheveled, malodorous; per nursing, pt urinated in trash in [facility] last evening. T/W spoke to patient regarding using restroom on unit; pt continues to report concern that someone can try to kill me because of who I am and who my family is ; when asked why someone would hurt him. Pt stated, because we are well known in [place] and they may hurt me because of it ; pt unable to specify who they are. denies AH/VH. Pt was offered for staff member to examine restroom and stand outside to assure no one is waiting for him; however pt continues to decline. Patient stated, I feel like you guys are playing a psychotic game with me or that they are doing this for their entertainment . 04/02: Patient continues to present similar to days prior. He continues to report paranoia regarding using restroom, shower and eating. Pt stated, I urinated in the trash early in the morning ; he continues to state he will consider using restroom. Pt reports taking bites of breakfast this morning. denies any side effects from Zyprexa other than feeling tired; pt stated, I am feeling a bit calmer . Per nursing, pt slept in chair in [facility] for 7 hours last night. Will continue to build rapport. 04/03: Patient continues to report paranoia regarding using restroom, shower and eating. Pt was offered single room d/t continuous urinating in [facility]; pt declined. Pt stated, I don't think a single room would help. I'm still having the same thoughts . Pt reports he has increased his fluid intake with water, juice and milk; however he continues to report only take a few bites of food. 04/04: Discussed medications increases with pt which he refuses at this time. Focused on discharge, and where his belongings are being stored at this time. 04/05: Patient declined to meet with T/W in unit office; pt stated, I don't feel comfortable going into the office because I think someone would hurt me ; pt reassured no one would hurt him, however, he continued to decline. Met with pt in unit hallway. Patient reports he did not urinate yesterday; he was educated regarding medical complications that can occur with decreased intake of fluids and food. Pt stated, I know but it's not like I'm dying . Pt refused labs. Discussed various solutions of pt feeling safe to use restroom or shower. pt stated, I'm still worried someone is going to hurt me. I'm not sure who, but it's because I am along the lines of royalty and it's putting me in harms way if I use the bathroom, shower or eat . Pt reporting zyprexa is making him too tired ; plan to DC. start risperidal 1mg PO daily with plan to switch to PLAZA; discussed with pt. T/W spoke to patient's mother, Chio, who reports has not left the house in 2 years and has not bathed or used the restroom in a year. She expressed concern over his wellbeing of not drinking or eating. She plans on calling patient to encourage him increase fluid intake. 04/07: Pt continues similar to days prior. Pt reports he did not urinate yesterday. Refused labs again. Hearing was held today; Pt was commited. T/W informed pt of plan to increase risperidal. Pt to receive additional risperidal 1mg PO bedtime dose to night. Starting tomorrow, Increase: Risperidal 2mg PO bedtime. 04/08: Staying in common area, however, keeping to self. per nursing, pt urinated in multiple cups last evening in common area and declined to use restroom. Pt reports feeling frustrated about not being discharged ; T/W discussed plan with medications again. Pt requesting to be discharged home today; asking multiple staff. Pt continues to report paranoia regarding using toilet, shower, eating/drinking. Encouraged to allow labs. 04/10: No changes. Encourage ongoing med adherence especially for Risperdal. Also encourage elevating legs as per hospitalist evaluation on 04/06/2024. Ordering an extra large compression stockings. 04/11: Met with pt in unit office. Continues to stay in common areas. paranoid. Pt discussed paranoia regarding eating; pt stated, how do you know someone isn't trying to poison me? People in this hospital. Per nursing, ate 10% of one meal yesterday and 25% of one meal today, has not eaten anything otherwise. Patient continues to refuse labs; shower (pt reports he has not bathed himself since admission and refusing to change clothes). Declining to use bathroom. perseverating on discharge to go back home where I can continue doing these things and be more comfortable . Continues similar to days prior; ? possible cheeking, will switch to risperidal liquid. Increase dose to Risperidal 3mg PO bedtime. Wound consult ordered for bilateral legs 04/12: Met with pt in unit office. Continues to stay in common areas; declining to go into assigned room for any reason. He continues paranoid, anxious, fearful. Pt argumentative and requesting discharge since he has been able to meet with T/W in the unit office for the past 2 days. Discussed that pt does not allow for the door to be closed, continues with paranoia stating my safety is a concern if the door is closed . Declining bathroom and shower. Discussed change of medication to liquid d/t possible cheeking. 04/13: Pt continues paranoid, anxious, fearful. T/W and social media marketing analyst, Sabi, encouraged pt to walk into his room; lights were turned on to show no one was in the room and it was safe; however, pt continues to make paranoid statements of someone waiting to hurt him. Pt reports he did not urinate yesterday; discussed the importance of drinking fluids and eating meals. Per nursing, pt ate 5% of breakfast yesterday and declined lunch and dinner. Continue current tx plan. 04/14: Pt continues similar to days prior. Refusing to cross threshold into any room other than side office. Continues concerned that someone may hurt him if he goes into a room even if staff are with him. Per nursing, pt has not eaten or drank fluids today. [facility] and continues to refuse using restroom; despite having access to multiple bathrooms. Continue current tx plan. 04/15: T/W and RN attempting to reassure patient of his safety to be able to cross threshold into his room. Continues to believe someone may be hiding in the room to hurt him. Argumentative, attempting to change topic when asked questions about challenging his anxiety and paranoia. Per nursing, pt continues to have poor intake. Pt reports he did not urinate yesterday 04/17: No changes 04/18: Met with Dr. Lorenzana present. Pt continues to decline to go into bedroom or restroom; was willing to meet in side office with door open. He continues to discuss his anxiety and paranoia regarding being attacked by someone or snakes . Pt states he does not believe to have a mental illness ; requesting to be discharged home. Pt re-educated on goal of treatment. Patient educated on: diagnosis, medication risk/benefits and therapeutic strategies Reason for continued inpatient stay Substantial Risk for: med/psych decompensation Time Spent With Patient Time: Total time managing care of this patient today _20___ minutes.
[2024-04-18] MEDS: Ammonium Lactate 12 % Cream 140 GM TUBE 1 APPL TOPICAL ×2 (14:45→20:53)
[2024-04-18] MEDS: Betamethasone Dip Aug 0.05% Cr 15 GM TUBE 1 APPL TOPICAL ×2 (14:45→20:53)
[2024-04-18 20:49] VITALS: BP 112/67; PULSE 94; RESP 16; TEMP 37.1; O2SAT 96
[2024-04-18] MEDS: risperiDONE Oral Sol 1 MG/ML SOLUTION 3 MG PO (20:52)
[2024-04-19 07:55] VITALS: BP 94/61; PULSE 78; RESP 16; TEMP 36.6; O2SAT 100
--- NOTE | 2024-04-19 09:01 | HO.PSYCHPN ---
Subjective Subjective Date of Service: 04/19/24 Reason For Visit: Schizophrenia Subjective Notes: Section 8 Interim History: Reviewed with Dr. Lorenzana. Pt continues similar to days prior. Patient was given single room however pt continues to decline to enter room despite not having a room mate. He reports not urinating or having a bowel movement yesterday or today. Risperidal increased 4mg PO bedtime; pt aware. Labs ordered for tomorrow for monitoring of medical status while being treated with antipsychotics medications; informed consent obtained from guardian and patient is aware that informed consent was obtained. Medication Compliance: Yes Side effects from medications: No Attending Groups: No Review of Systems Constitutional: Reports as per HPI Eyes: Reports as per HPI Reports as per HPI Cardiovascular: Reports as per HPI Respiratory: Reports as per HPI Gastrointestinal: Reports as per HPI Genitourinary: Reports as per HPI Musculoskeletal: Reports as per HPI Skin/Breast: Reports as per HPI Reports as per HPI Psychiatric: Reports as per HPI Endocrine: Reports as per HPI Hematologic/Lymphatic: Reports as per HPI Allergic/Immunologic: Reports as per HPI Mental Status Exam Mental Status Exam Narrative: Pt is alert and oriented; behavior is calm, less guarded; dressed in hospital attire, malodorous, disheveled; mood is described as okay ; eye contact appropriate; Speech is normal rate, volume and not pressured; focused on discharge; paranoid. denies SI/HI. Insight and judgment are poor. Diagnostics Vital Signs (24Hr): Vital Signs - 24 hr 04/18/24 20:49 04/19/24 07:55 Temperature 98.7 F 97.9 F Pulse Rate 94 78 Respiratory Rate 16 16 Blood Pressure 112/67 94/61 Pulse Oximetry 96 100 Oxygen Delivery Method Room Air Room Air BMI result Body Mass Index 25.6 Medications Medications Current Medications Acetaminophen (Acetaminophen 325 Mg Tablet) 650 mg PO Q6H PRN PRN Reason: Headache/Pain Mild Scale (1-3) Al Hydroxide/Mg Hydroxide (Magnesium Hydrox/Alum Hydrox 30 Ml Oral.Susp) 30 ml PO Q6H PRN PRN Reason: Heartburn/Nausea Benztropine Mesylate (Benztropine Mesylate 1 Mg Tablet) 1 mg PO DAILY PRN PRN Reason: Extrapyramidal Effects Betamethasone Dipropion Augmented (Betamethasone Dip Aug 0.05% Cr 15 Gm Tube) 1 appl TOPICAL BID LENI; Protocol Last Admin: 04/18/24 20:53 Dose: 1 appl Haloperidol Lactate (Haloperidol Lactate 5 Mg/Ml Vial) 5 mg IM DAILY PRN PRN Reason: Psychosis Hydroxyzine HCl (Hydroxyzine Hcl 25 Mg Tablet) 25 mg PO Q6H PRN PRN Reason: Anxiety Lactic Acid (Ammonium Lactate 12 % Cream 140 Gm Tube) 1 appl TOPICAL BID PRN; Protocol PRN Reason: Dry, scaly skin Last Admin: 04/18/24 20:53 Dose: 1 appl Lorazepam (Lorazepam 0.5 Mg Tablet) 0.5 mg PO BID LENI Last Admin: 04/18/24 20:54 Dose: Not Given Magnesium Hydroxide (Milk Of Magnesia 30 Ml Oral.Susp) 30 ml PO DAILY PRN PRN Reason: Constipation Nicotine Polacrilex (Nicotine Polacrilex 2 Mg Gum) 4 mg BUCCAL Q2H PRN PRN Reason: Nicotine Cravings Risperidone (Risperidone Oral Kami 1 Mg/Ml Solution) 3 mg PO BEDTIME [facility] Last Admin: 04/18/24 20:52 Dose: 3 mg Trazodone HCl (Trazodone Hcl 50 Mg Tablet) 50 mg PO BEDTIME MRX1 PRN PRN Reason: Insomnia Allergies Allergies Allergy/AdvReac Type Severity Reaction Status Date / Time Unable to Assess Allergy Verified 03/25/24 21:15 Assessment & Plan Assessment & Plan (1) Schizophrenia: Status: Acute Code(s): F20.9 - Schizophrenia, unspecified Plan 03/26: risperidone /. collateral from mother. clarify legal circumstance/rolando's order. 03/27: refusing meds, not leaving his chair. urinating in cup beneath blanket. requesting immediate discharge. continue to offer medication. clarify legal circumstance and ability to involuntarily administer medication. diamond warning provided. 03/28: Sitting in chair in milieu. Per nursing, patient urinating in cups under blankets. Patient was notified that he must go to his room to use the toilet and can not urinate in common areas. Patient was able to walk down unit hallway with no assistance. Patient is requesting to have a wheelchair d/t being terrified of falling . Patient stated, I do not have any kind of condition. I am just worried about falling . Patient reports that he has not been eating much due to fear of being poisoned however, he would not elaborate as to who he believes is poisoning him. He reports at home he has been urinating in milk cartons and defecating in trash bags and having his mother dispose of these items. Patient agreed to take 1 mg of Risperdal PO; however, expressed paranoia towards RN about being a different medication/dosage despite being shown packaging. T/W obtained information from patient's mother, Chio; Chio reports patient has not been using the toilet for the past two years due to being afraid that snakes will get him and voices telling him the same. Chio reports, pt is also afraid of walking d/t fear of hitting his head. She reports patient has never been on antipsychotics and has only taken anti-anxiety medications for 3 weeks which patient discontinued. She denies history of inpatient psychiatric hospitalizations. She reports having guardianship due to patient being unable to care for self. 03/29: Observing pacing unit hallway. Keeping to self. Covering self with blanket. Per nursing, pt slept in chair in milieu for 5 hours last night. Refused medications last night and this morning. Pt reports he does not want to sleep in a bed d/t feeling more vulnerable when laying down . Patient reports he does not want to go into the bathroom because he is paranoid that something might happen in there or someone might be waiting for me in there . Pt's 3 day up 03/30/24; he is requesting to be discharged home. 03/30: Observed standing at nurses station throughout shift; not taking redirection from staff to please step away for pt confidentiality. Argumentative. 3 day up today; filed on; pt notified. Pt stated, you can't keep me here. I'm going to jose you and make your head spin 3 times! Your documents are not real! Refused Zyprexa. Per nursing, pt urinated in carton in unit hallway;continues to refuse utilizing bathroom. Per nursing, pt did not eat anything today. 03/31: Pacing in front of nurses station. disheveled, malodorous; encouraged to shower, however pt declined despite being offered shower chair and staff member to wait outside shower room if assistance is needed. Per nursing, pt urinated in cup and sensory room floor last evening. Pt continues to report paranoia regarding using bathroom; pt stated, I'm worried someone will be in the bathroom waiting for me because of who I am . When asked why he believes someone would want to hurt him; pt stated, I can't discuss that . denies SI/HI/VH/AH. He reports not eating d/t concerns that he may be poisoned by someone ; observed drinking water from water bottle. Pt offered Zyprexa PO per court ordered treatment plan; per nursing, pt initially refused then agreed to take. 04/01: Patient continues to stand or pace in front of nurses station. disheveled, malodorous; per nursing, pt urinated in trash in [facility] last evening. T/W spoke to patient regarding using restroom on unit; pt continues to report concern that someone can try to kill me because of who I am and who my family is ; when asked why someone would hurt him. Pt stated, because we are well known in [place] and they may hurt me because of it ; pt unable to specify who they are. denies AH/VH. Pt was offered for staff member to examine restroom and stand outside to assure no one is waiting for him; however pt continues to decline. Patient stated, I feel like you guys are playing a psychotic game with me or that they are doing this for their entertainment . 04/02: Patient continues to present similar to days prior. He continues to report paranoia regarding using restroom, shower and eating. Pt stated, I urinated in the trash early in the morning ; he continues to state he will consider using restroom. Pt reports taking bites of breakfast this morning. denies any side effects from Zyprexa other than feeling tired; pt stated, I am feeling a bit calmer . Per nursing, pt slept in chair in [facility] for 7 hours last night. Will continue to build rapport. 04/03: Patient continues to report paranoia regarding using restroom, shower and eating. Pt was offered single room d/t continuous urinating in [facility]; pt declined. Pt stated, I don't think a single room would help. I'm still having the same thoughts . Pt reports he has increased his fluid intake with water, juice and milk; however he continues to report only take a few bites of food. 04/04: Discussed medications increases with pt which he refuses at this time. Focused on discharge, and where his belongings are being stored at this time. 04/05: Patient declined to meet with T/W in unit office; pt stated, I don't feel comfortable going into the office because I think someone would hurt me ; pt reassured no one would hurt him, however, he continued to decline. Met with pt in unit hallway. Patient reports he did not urinate yesterday; he was educated regarding medical complications that can occur with decreased intake of fluids and food. Pt stated, I know but it's not like I'm dying . Pt refused labs. Discussed various solutions of pt feeling safe to use restroom or shower. pt stated, I'm still worried someone is going to hurt me. I'm not sure who, but it's because I am along the lines of royalty and it's putting me in harms way if I use the bathroom, shower or eat . Pt reporting zyprexa is making him too tired ; plan to DC. start risperidal 1mg PO daily with plan to switch to PLAZA; discussed with pt. T/W spoke to patient's mother, Chio, who reports has not left the house in 2 years and has not bathed or used the restroom in a year. She expressed concern over his wellbeing of not drinking or eating. She plans on calling patient to encourage him increase fluid intake. 04/07: Pt continues similar to days prior. Pt reports he did not urinate yesterday. Refused labs again. Hearing was held today; Pt was commited. T/W informed pt of plan to increase risperidal. Pt to receive additional risperidal 1mg PO bedtime dose to night. Starting tomorrow, Increase: Risperidal 2mg PO bedtime. 04/08: Staying in common area, however, keeping to self. per nursing, pt urinated in multiple cups last evening in common area and declined to use restroom. Pt reports feeling frustrated about not being discharged ; T/W discussed plan with medications again. Pt requesting to be discharged home today; asking multiple staff. Pt continues to report paranoia regarding using toilet, shower, eating/drinking. Encouraged to allow labs. 04/10: No changes. Encourage ongoing med adherence especially for Risperdal. Also encourage elevating legs as per hospitalist evaluation on 04/06/2024. Ordering an extra large compression stockings. 04/11: Met with pt in unit office. Continues to stay in common areas. paranoid. Pt discussed paranoia regarding eating; pt stated, how do you know someone isn't trying to poison me? People in this hospital. Per nursing, ate 10% of one meal yesterday and 25% of one meal today, has not eaten anything otherwise. Patient continues to refuse labs; shower (pt reports he has not bathed himself since admission and refusing to change clothes). Declining to use bathroom. perseverating on discharge to go back home where I can continue doing these things and be more comfortable . Continues similar to days prior; ? possible cheeking, will switch to risperidal liquid. Increase dose to Risperidal 3mg PO bedtime. Wound consult ordered for bilateral legs 04/12: Met with pt in unit office. Continues to stay in common areas; declining to go into assigned room for any reason. He continues paranoid, anxious, fearful. Pt argumentative and requesting discharge since he has been able to meet with T/W in the unit office for the past 2 days. Discussed that pt does not allow for the door to be closed, continues with paranoia stating my safety is a concern if the door is closed . Declining bathroom and shower. Discussed change of medication to liquid d/t possible cheeking. 04/13: Pt continues paranoid, anxious, fearful. T/W and mental health social worker, Sabi, encouraged pt to walk into his room; lights were turned on to show no one was in the room and it was safe; however, pt continues to make paranoid statements of someone waiting to hurt him. Pt reports he did not urinate yesterday; discussed the importance of drinking fluids and eating meals. Per nursing, pt ate 5% of breakfast yesterday and declined lunch and dinner. Continue current tx plan. 04/14: Pt continues similar to days prior. Refusing to cross threshold into any room other than side office. Continues concerned that someone may hurt him if he goes into a room even if staff are with him. Per nursing, pt has not eaten or drank fluids today. He [facility] and continues to refuse using restroom; despite having access to multiple bathrooms. Continue current tx plan. 04/15: T/W and RN attempting to reassure patient of his safety to be able to cross threshold into his room. Continues to believe someone may be hiding in the room to hurt him. Argumentative, attempting to change topic when asked questions about challenging his anxiety and paranoia. Per nursing, pt continues to have poor intake. Pt reports he did not urinate yesterday 04/17: No changes 04/18: Met with Dr. Lorenzana present. Pt continues to decline to go into bedroom or restroom; was willing to meet in side office with door open. He continues to discuss his anxiety and paranoia regarding being attacked by someone or snakes . Pt states he does not believe to have a mental illness ; requesting to be discharged home. Pt re-educated on goal of treatment. 04/19: Pt continues similar to days prior. Patient was given single room however pt continues to decline to enter room despite not having a room mate. He reports not urinating or having a bowel movement yesterday or today. Risperidal increased 4mg PO bedtime; pt aware. Labs ordered for tomorrow for monitoring of medical status while being treated with antipsychotics medications; informed consent obtained from guardian and patient is aware that informed consent was obtained. Patient educated on: diagnosis and medication risk/benefits Guardian/Caregiver educated on: diagnosis and medication risk/benefits Reason for continued inpatient stay Substantial Risk for: med/psych decompensation Time Spent With Patient Time: Total time managing care of this patient today _20___ minutes.
[2024-04-19 20:00] VITALS: BP 92/56; PULSE 70; RESP 18; TEMP 36.3; O2SAT 98
[2024-04-19] MEDS: risperiDONE Oral Sol 1 MG/ML SOLUTION 4 MG PO (21:16)
[2024-04-20 08:39] LABS: MANUAL DIFF FLAG NO
[2024-04-20 08:41] LABS: Basophils Percent Auto 0.6 % (0-2); Eosinophils Absolute Auto 0.1 X10*3/uL (0.0-0.4); Hematocrit 43.3 % (42.0-52.0); Imm Gran Abs Auto 0.01 X10*3/uL (0.00-0.03); Imm Gran Pct Auto 0.2 % (0.0-0.4); Lymphocytes Absolute Auto 1.3 X10*3/uL (1.2-4.9); Lymphocytes Percent Auto 26.8 % (20-40); Mean Corpuscular HGB Conc 32.3 g/dl (31.0-36.0); Mean Corpuscular Hemoglobin 26.3 pg (27.0-33.0); Mean Corpuscular Volume 81.2 fL (80.0-98.0); Mean Platelet Volume 10.6 fL (9.4-12.4); Monocytes Absolute Auto 0.4 X10*3/uL (0.1-1.2); Monocytes Percent Auto 8.7 % (2-11); Neutrophils Absolute Auto 3.1 x10*3/uL (2.0-8.3); Neutrophils Percent Auto 62.7 % (45-73); Platelet Count 174 X10*3/uL (160-400); Red Blood Count 5.33 X10*6/uL (4.60-5.80)
[2024-04-20 08:53] LABS: Estimated Average Glucose 117 mg/dL; Hemoglobin A1C 135.7866 umol/L; Hemoglobin A1c % 5.7 % (<6.0); Total Hemoglobin (HGBA1C) 3475.0614 umol/L
--- NOTE | 2024-04-20 09:12 | P.PNPSI_ITS ---
Subjective Subjective Date of Service: 04/20/24 Reason For Visit: Schizophrenia Subjective Notes: Section 8 Interim History: Reviewed with Dr. Lorenzana. pt continues to decline to enter his single room. Chair was placed between hallway and bedroom threshold; pt stated, I'm not going in there because I'm worried I might if I sit down . Continues with paranoid delusions. denies any side effects from increase in risperidal. encouraged to take Ativan to help with anxiety. Declined to go into his room to receive leg treatment. Declined to use restroom. Medication Compliance: Yes Side effects from medications: No Attending Groups: No Review of Systems Constitutional: Reports as per HPI Eyes: Reports as per HPI Reports as per HPI Cardiovascular: Reports as per HPI Respiratory: Reports as per HPI Gastrointestinal: Reports as per HPI Genitourinary: Reports as per HPI Musculoskeletal: Reports as per HPI Skin/Breast: Reports as per HPI Reports as per HPI Psychiatric: Reports as per HPI Endocrine: Reports as per HPI Hematologic/Lymphatic: Reports as per HPI Allergic/Immunologic: Reports as per HPI Mental Status Exam Mental Status Exam Narrative: Pt is alert and oriented; behavior is calm, less guarded; dressed in hospital attire, malodorous, disheveled; mood is described as okay ; eye contact appropriate; Speech is normal rate, volume and not pressured; focused on discharge; paranoid, delusional. denies SI/HI. Insight and judgment are poor. Diagnostics Vital Signs (24Hr): Vital Signs - 24 hr 04/19/24 20:00 Temperature 97.3 F Pulse Rate 70 Respiratory Rate 18 Blood Pressure 92/56 L Pulse Oximetry 98 Oxygen Delivery Method Room Air BMI result Body Mass Index 25.6 Labs 04/20/24 08:23 04/20/24 08:23 Labs: Laboratory Results - last 48 hr 04/20/24 08:23 WBC 5.0 RBC 5.33 Hgb 14.0 Hct 43.3 MCV 81.2 MCH 26.3 L MCHC 32.3 RDW 15.0 Plt Count 174 MPV 10.6 Immature Gran % (Auto) 0.2 Neut % (Auto) 62.7 Lymph % (Auto) 26.8 [place] % (Auto) 8.7 Eos % (Auto) 1.0 Baso % (Auto) 0.6 Lymph # (Auto) 1.3 [place] # (Auto) 0.4 Eos # (Auto) 0.1 Baso # (Auto) 0.0 Abs Immat Gran (auto) 0.01 Absolute Neuts (auto) 3.1 Absolute Nucleated RBC 0.000 Nucleated RBC % (auto) 0.0 Estimat Average Glucose 117 Hemoglobin A1c % 5.7 Medications Medications Current Medications Acetaminophen (Acetaminophen 325 Mg Tablet) 650 mg PO Q6H PRN PRN Reason: Headache/Pain Mild Scale (1-3) Al Hydroxide/Mg Hydroxide (Magnesium Hydrox/Alum Hydrox 30 Ml Oral.Susp) 30 ml PO Q6H PRN PRN Reason: Heartburn/Nausea Benztropine Mesylate (Benztropine Mesylate 1 Mg Tablet) 1 mg PO DAILY PRN PRN Reason: Extrapyramidal Effects Betamethasone Dipropion Augmented (Betamethasone Dip Aug 0.05% Cr 15 Gm Tube) 1 appl TOPICAL BID [facility]; Protocol Last Admin: 04/19/24 21:17 Dose: Not Given Haloperidol Lactate (Haloperidol Lactate 5 Mg/Ml Vial) 5 mg IM DAILY PRN PRN Reason: Psychosis Hydroxyzine HCl (Hydroxyzine Hcl 25 Mg Tablet) 25 mg PO Q6H PRN PRN Reason: Anxiety Lactic Acid (Ammonium Lactate 12 % Cream 140 Gm Tube) 1 appl TOPICAL BID PRN; Protocol PRN Reason: Dry, scaly skin Last Admin: 04/18/24 20:53 Dose: 1 appl Lorazepam (Lorazepam 0.5 Mg Tablet) 0.5 mg PO BID [facility] Last Admin: 04/19/24 21:16 Dose: Not Given Magnesium Hydroxide (Milk Of Magnesia 30 Ml Oral.Susp) 30 ml PO DAILY PRN PRN Reason: Constipation Nicotine Polacrilex (Nicotine Polacrilex 2 Mg Gum) 4 mg BUCCAL Q2H PRN PRN Reason: Nicotine Cravings Risperidone (Risperidone Oral Kami 1 Mg/Ml Solution) 4 mg PO BEDTIME LENI Last Admin: 04/19/24 21:16 Dose: 4 mg Trazodone HCl (Trazodone Hcl 50 Mg Tablet) 50 mg PO BEDTIME MRX1 PRN PRN Reason: Insomnia Allergies Allergies Allergy/AdvReac Type Severity Reaction Status Date / Time Unable to Assess Allergy Verified 03/25/24 21:15 Assessment & Plan Assessment & Plan (1) Schizophrenia: Status: Acute Code(s): F20.9 - Schizophrenia, unspecified Plan 03/26: risperidone /. collateral from mother. clarify legal circumstance/rolando's order. 03/27: refusing meds, not leaving his chair. urinating in cup beneath blanket. requesting immediate discharge. continue to offer medication. clarify legal circumstance and ability to involuntarily administer medication. diamond warning provided. 03/28: Sitting in chair in milieu. Per nursing, patient urinating in cups under blankets. Patient was notified that he must go to his room to use the toilet and can not urinate in common areas. Patient was able to walk down unit hallway with no assistance. Patient is requesting to have a wheelchair d/t being terrified of falling . Patient stated, I do not have any kind of condition. I am just worried about falling . Patient reports that he has not been eating much due to fear of being poisoned however, he would not elaborate as to who he believes is poisoning him. He reports at home he has been urinating in milk cartons and defecating in trash bags and having his mother dispose of these items. Patient agreed to take 1 mg of Risperdal PO; however, expressed paranoia towards RN about being a different medication/dosage despite being shown packaging. T/W obtained information from patient's mother, Chio; Chio reports patient has not been using the toilet for the past two years due to being afraid that snakes will get him and voices telling him the same. Chio reports, pt is also afraid of walking d/t fear of hitting his head. She reports patient has never been on antipsychotics and has only taken anti-anxiety medications for 3 weeks which patient discontinued. She denies history of inpatient psychiatric hospitalizations. She reports having guardianship due to patient being unable to care for self. 03/29: Observing pacing unit hallway. Keeping to self. Covering self with blanket. Per nursing, pt slept in chair in milieu for 5 hours last night. Refused medications last night and this morning. Pt reports he does not want to sleep in a bed d/t feeling more vulnerable when laying down . Patient reports he does not want to go into the bathroom because he is paranoid that something might happen in there or someone might be waiting for me in there . Pt's 3 day up 03/30/24; he is requesting to be discharged home. 03/30: Observed standing at nurses station throughout shift; not taking redirection from staff to please step away for pt confidentiality. Argumentative. 3 day up today; filed on; pt notified. Pt stated, you can't keep me here. I'm going to jose you and make your head spin 3 times! Your documents are not real! Refused Zyprexa. Per nursing, pt urinated in carton in unit hallway;continues to refuse utilizing bathroom. Per nursing, pt did not eat anything today. 03/31: Pacing in front of nurses station. disheveled, malodorous; encouraged to shower, however pt declined despite being offered shower chair and staff member to wait outside shower room if assistance is needed. Per nursing, pt urinated in cup and sensory room floor last evening. Pt continues to report paranoia regarding using bathroom; pt stated, I'm worried someone will be in the bathroom waiting for me because of who I am . When asked why he believes someone would want to hurt him; pt stated, I can't discuss that . denies SI/HI/VH/AH. He reports not eating d/t concerns that he may be poisoned by someone ; observed drinking water from water bottle. Pt offered Zyprexa PO per court ordered treatment plan; per nursing, pt initially refused then agreed to take. 04/01: Patient continues to stand or pace in front of nurses station. disheveled, malodorous; per nursing, pt urinated in trash in mileu last evening. T/W spoke to patient regarding using restroom on unit; pt continues to report concern that someone can try to kill me because of who I am and who my family is ; when asked why someone would hurt him. Pt stated, because we are well known in [place] and they may hurt me because of it ; pt unable to specify who they are. denies AH/VH. Pt was offered for staff member to examine restroom and stand outside to assure no one is waiting for him; however pt continues to decline. Patient stated, I feel like you guys are playing a psychotic game with me or that they are doing this for their entertainment . 04/02: Patient continues to present similar to days prior. He continues to report paranoia regarding using restroom, shower and eating. Pt stated, I urinated in the trash early in the morning ; he continues to state he will consider using restroom. Pt reports taking bites of breakfast this morning. denies any side effects from Zyprexa other than feeling tired; pt stated, I am feeling a bit calmer . Per nursing, pt slept in chair in [facility] for 7 hours last night. Will continue to build rapport. 04/03: Patient continues to report paranoia regarding using restroom, shower and eating. Pt was offered single room d/t continuous urinating in [facility]; pt declined. Pt stated, I don't think a single room would help. I'm still having the same thoughts . Pt reports he has increased his fluid intake with water, juice and milk; however he continues to report only take a few bites of food. 04/04: Discussed medications increases with pt which he refuses at this time. Focused on discharge, and where his belongings are being stored at this time. 04/05: Patient declined to meet with T/W in unit office; pt stated, I don't feel comfortable going into the office because I think someone would hurt me ; pt reassured no one would hurt him, however, he continued to decline. Met with pt in unit hallway. Patient reports he did not urinate yesterday; he was educated regarding medical complications that can occur with decreased intake of fluids and food. Pt stated, I know but it's not like I'm dying . Pt refused labs. Discussed various solutions of pt feeling safe to use restroom or shower. pt stated, I'm still worried someone is going to hurt me. I'm not sure who, but it's because I am along the lines of royalty and it's putting me in harms way if I use the bathroom, shower or eat . Pt reporting zyprexa is making him too tired ; plan to DC. start risperidal 1mg PO daily with plan to switch to PLAZA; discussed with pt. T/W spoke to patient's mother, Chio, who reports has not left the house in 2 years and has not bathed or used the restroom in a year. She expressed concern over his wellbeing of not drinking or eating. She plans on calling patient to encourage him increase fluid intake. 04/07: Pt continues similar to days prior. Pt reports he did not urinate yesterday. Refused labs again. Hearing was held today; Pt was commited. T/W informed pt of plan to increase risperidal. Pt to receive additional risperidal 1mg PO bedtime dose to night. Starting tomorrow, Increase: Risperidal 2mg PO bedtime. 04/08: Staying in common area, however, keeping to self. per nursing, pt urinated in multiple cups last evening in common area and declined to use restroom. Pt reports feeling frustrated about not being discharged ; T/W discussed plan with medications again. Pt requesting to be discharged home today; asking multiple staff. Pt continues to report paranoia regarding using toilet, shower, eating/drinking. Encouraged to allow labs. 04/10: No changes. Encourage ongoing med adherence especially for Risperdal. Also encourage elevating legs as per hospitalist evaluation on 04/06/2024. Ordering an extra large compression stockings. 04/11: Met with pt in unit office. Continues to stay in common areas. paranoid. Pt discussed paranoia regarding eating; pt stated, how do you know someone isn't trying to poison me? People in this hospital. Per nursing, ate 10% of one meal yesterday and 25% of one meal today, has not eaten anything otherwise. Patient continues to refuse labs; shower (pt reports he has not bathed himself since admission and refusing to change clothes). Declining to use bathroom. perseverating on discharge to go back home where I can continue doing these things and be more comfortable . Continues similar to days prior; ? possible cheeking, will switch to risperidal liquid. Increase dose to Risperidal 3mg PO bedtime. Wound consult ordered for bilateral legs 04/12: Met with pt in unit office. Continues to stay in common areas; declining to go into assigned room for any reason. He continues paranoid, anxious, fearful. Pt argumentative and requesting discharge since he has been able to meet with T/W in the unit office for the past 2 days. Discussed that pt does not allow for the door to be closed, continues with paranoia stating my safety is a concern if the door is closed . Declining bathroom and shower. Discussed change of medication to liquid d/t possible cheeking. 04/13: Pt continues paranoid, anxious, fearful. T/W and social worker delinquency prevention, Sabi, encouraged pt to walk into his room; lights were turned on to show no one was in the room and it was safe; however, pt continues to make paranoid statements of someone waiting to hurt him. Pt reports he did not urinate yesterday; discussed the importance of drinking fluids and eating meals. Per nursing, pt ate 5% of breakfast yesterday and declined lunch and dinner. Continue current tx plan. 04/14: Pt continues similar to days prior. Refusing to cross threshold into any room other than side office. Continues concerned that someone may hurt him if he goes into a room even if staff are with him. Per nursing, pt has not eaten or drank fluids today. He did urinate in trash can in the mileu and continues to refuse using restroom; despite having access to multiple bathrooms. Continue current tx plan. 04/15: T/W and RN attempting to reassure patient of his safety to be able to cross threshold into his room. Continues to believe someone may be hiding in the room to hurt him. Argumentative, attempting to change topic when asked questions about challenging his anxiety and paranoia. Per nursing, pt continues to have poor intake. Pt reports he did not urinate yesterday 04/17: No changes 04/18: Met with Dr. Lorenzana present. Pt continues to decline to go into bedroom or restroom; was willing to meet in side office with door open. He continues to discuss his anxiety and paranoia regarding being attacked by someone or snakes . Pt states he does not believe to have a mental illness ; requesting to be discharged home. Pt re-educated on goal of treatment. 04/19: Pt continues similar to days prior. Patient was given single room however pt continues to decline to enter room despite not having a room mate. He reports not urinating or having a bowel movement yesterday or today. Risperidal increased 4mg PO bedtime; pt aware. Labs ordered for tomorrow for monitoring of medical status while being treated with antipsychotics medications; informed consent obtained from guardian and patient is aware that informed consent was obtained. 04/20: pt continues to decline to enter his single room. Chair was placed between hallway and bedroom threshold; pt stated, I'm not going in there because I'm worried I might if I sit down . Continues with paranoid delusions. denies any side effects from increase in risperidal. encouraged to take Ativan to help with anxiety. Declined to go into his room to receive leg treatment. Declined to use restroom. Patient educated on: diagnosis, medication risk/benefits and therapeutic strategies Reason for continued inpatient stay Substantial Risk for: med/psych decompensation Time Spent With Patient Time: Total time managing care of this patient today _20___ minutes.
[2024-04-20 09:26] LABS: Alanine Aminotransferase 28 U/L (0-40); Albumin Level 4.4 g/dL (3.5-5.0); Alkaline Phosphatase 89 U/L (39-117); Anion Gap 10 (12-20); Aspartate Amino Transferase 23 U/L (5-37); Bilirubin Total 0.7 mg/dL (0.0-1.0); Blood Urea Nitrogen 12 mg/dL (9-16); Calcium 9.6 mg/dL (8.4-10.2); Carbon Dioxide 32 mmol/L (22-29); Chloride 100 mmol/L (96-108); Cholesterol 176 mg/dL (<200); Creatinine Clr Calc Pharmacy 123.8; Estimated Glomerular Filt Rate > 60; Glucose Fasting 87 mg/dL (60-99); HDL Cholesterol 38 mg/dL (>40); LDL Cholesterol Calculated 115 mg/dL (<100); Potassium 3.8 mmol/L (3.3-5.1); Sodium 138 mmol/L (135-145); Triglycerides 116 mg/dL (<150)
[2024-04-20 09:41] LABS: TSH reflex Free T4 1.78 uIU/mL (0.32-4.0)
[2024-04-20 09:54] LABS: Folate 7.2 ng/mL (> or = 4.0); Vitamin B12 771 pg/mL (200-900)
[2024-04-20 20:00] VITALS: BP 96/60; PULSE 70; RESP 16; TEMP 36.5; O2SAT 98
[2024-04-20] MEDS: risperiDONE Oral Sol 1 MG/ML SOLUTION 4 MG PO (21:11)
--- NOTE | 2024-04-21 09:18 | P.PNPSI_ITS ---
Subjective Subjective Date of Service: 04/21/24 Reason For Visit: Schizophrenia Subjective Notes: Section 8 Interim History: Reviewed with Dr. Lorenzana. Continues with paranoid delusions; pt stated, I won't go in there because someone wants to kill me. I don't know who exactly. I know this from the narrative I hear and the symbolism I see on TV and commercial trucks . Declined to go into his room to receive leg treatment. Declined to use restroom. Eating/drinking minimally. Spoke with patient's mother and guardian, Chio, via phone. Reviewed current treatment plan and labs. Medication Compliance: Yes Side effects from medications: No Attending Groups: No Review of Systems Constitutional: Reports as per HPI Eyes: Reports as per HPI Reports as per HPI Cardiovascular: Reports as per HPI Respiratory: Reports as per HPI Gastrointestinal: Reports as per HPI Genitourinary: Reports as per HPI Musculoskeletal: Reports as per HPI Skin/Breast: Reports as per HPI Reports as per HPI Psychiatric: Reports as per HPI Endocrine: Reports as per HPI Hematologic/Lymphatic: Reports as per HPI Allergic/Immunologic: Reports as per HPI Mental Status Exam Mental Status Exam Narrative: Pt is alert and oriented; behavior is calm; dressed in hospital attire, malodorous, disheveled; mood is described as okay ; eye contact appropriate; Speech is normal rate, volume and not pressured; focused on discharge; paranoid, delusional. denies SI/HI. Insight and judgment are poor. Diagnostics Vital Signs (24Hr): Vital Signs - 24 hr 04/20/24 20:00 Temperature 97.7 F Pulse Rate 70 Respiratory Rate 16 Blood Pressure 96/60 Pulse Oximetry 98 Oxygen Delivery Method Room Air BMI result Body Mass Index 25.6 Labs 04/20/24 08:23 04/20/24 08:23 Labs: Laboratory Results - last 48 hr 04/20/24 08:23 WBC 5.0 RBC 5.33 Hgb 14.0 Hct 43.3 MCV 81.2 MCH 26.3 L MCHC 32.3 RDW 15.0 Plt Count 174 MPV 10.6 Immature Gran % (Auto) 0.2 Neut % (Auto) 62.7 Lymph % (Auto) 26.8 Canadian % (Auto) 8.7 Eos % (Auto) 1.0 Baso % (Auto) 0.6 Lymph # (Auto) 1.3 Canadian # (Auto) 0.4 Eos # (Auto) 0.1 Baso # (Auto) 0.0 Abs Immat Gran (auto) 0.01 Absolute Neuts (auto) 3.1 Absolute Nucleated RBC 0.000 Nucleated RBC % (auto) 0.0 Sodium 138 Potassium 3.8 Chloride 100 Carbon Dioxide 32 H Anion Gap 10 L BUN 12 Creatinine 0.87 Estim Creat Clear Calc 123.8 Estimated GFR > 60 Fasting Glucose 87 Estimat Average Glucose 117 Hemoglobin A1c % 5.7 Calcium 9.6 Total Bilirubin 0.7 AST 23 ALT 28 Alkaline Phosphatase 89 Total Protein 8.0 Albumin 4.4 Triglycerides 116 Cholesterol 176 LDL Cholesterol, Calc 115 H HDL Cholesterol 38 L Vitamin B12 771 Folate 7.2 TSH 1.78 Medications Medications Current Medications Acetaminophen (Acetaminophen 325 Mg Tablet) 650 mg PO Q6H PRN PRN Reason: Headache/Pain Mild Scale (1-3) Al Hydroxide/Mg Hydroxide (Magnesium Hydrox/Alum Hydrox 30 Ml Oral.Susp) 30 ml PO Q6H PRN PRN Reason: Heartburn/Nausea Benztropine Mesylate (Benztropine Mesylate 1 Mg Tablet) 1 mg PO DAILY PRN PRN Reason: Extrapyramidal Effects Betamethasone Dipropion Augmented (Betamethasone Dip Aug 0.05% Cr 15 Gm Tube) 1 appl TOPICAL BID [facility]; Protocol Last Admin: 04/20/24 20:27 Dose: Not Given Haloperidol Lactate (Haloperidol Lactate 5 Mg/Ml Vial) 5 mg IM DAILY PRN PRN Reason: Psychosis Hydroxyzine HCl (Hydroxyzine Hcl 25 Mg Tablet) 25 mg PO Q6H PRN PRN Reason: Anxiety Lactic Acid (Ammonium Lactate 12 % Cream 140 Gm Tube) 1 appl TOPICAL BID PRN; Protocol PRN Reason: Dry, scaly skin Last Admin: 04/18/24 20:53 Dose: 1 appl Lorazepam (Lorazepam 0.5 Mg Tablet) 0.5 mg PO BID LENI Last Admin: 04/21/24 08:59 Dose: Not Given Magnesium Hydroxide (Milk Of Magnesia 30 Ml Oral.Susp) 30 ml PO DAILY PRN PRN Reason: Constipation Nicotine Polacrilex (Nicotine Polacrilex 2 Mg Gum) 4 mg BUCCAL Q2H PRN PRN Reason: Nicotine Cravings Risperidone (Risperidone Oral Kami 1 Mg/Ml Solution) 4 mg PO BEDTIME LENI Last Admin: 04/20/24 21:11 Dose: 4 mg Trazodone HCl (Trazodone Hcl 50 Mg Tablet) 50 mg PO BEDTIME MRX1 PRN PRN Reason: Insomnia Allergies Allergies Allergy/AdvReac Type Severity Reaction Status Date / Time Unable to Assess Allergy Verified 03/25/24 21:15 Assessment & Plan Assessment & Plan (1) Schizophrenia: Status: Acute Code(s): F20.9 - Schizophrenia, unspecified Plan 03/26: risperidone /. collateral from mother. clarify legal circumstance/rolando's order. 03/27: refusing meds, not leaving his chair. urinating in cup beneath blanket. requesting immediate discharge. continue to offer medication. clarify legal circumstance and ability to involuntarily administer medication. diamond warning provided. 03/28: Sitting in chair in milieu. Per nursing, patient urinating in cups under blankets. Patient was notified that he must go to his room to use the toilet and can not urinate in common areas. Patient was able to walk down unit hallway with no assistance. Patient is requesting to have a wheelchair d/t being terrified of falling . Patient stated, I do not have any kind of condition. I am just worried about falling . Patient reports that he has not been eating much due to fear of being poisoned however, he would not elaborate as to who he believes is poisoning him. He reports at home he has been urinating in milk cartons and defecating in trash bags and having his mother dispose of these items. Patient agreed to take 1 mg of Risperdal PO; however, expressed paranoia towards RN about being a different medication/dosage despite being shown packaging. T/W obtained information from patient's mother, Chio; Chio reports patient has not been using the toilet for the past two years due to being afraid that snakes will get him and voices telling him the same. Chio reports, pt is also afraid of walking d/t fear of hitting his head. She reports patient has never been on antipsychotics and has only taken anti-anxiety medications for 3 weeks which patient discontinued. She denies history of inpatient psychiatric hospitalizations. She reports having guardianship due to patient being unable to care for self. 03/29: Observing pacing unit hallway. Keeping to self. Covering self with blanket. Per nursing, pt slept in chair in milieu for 5 hours last night. Refused medications last night and this morning. Pt reports he does not want to sleep in a bed d/t feeling more vulnerable when laying down . Patient reports he does not want to go into the bathroom because he is paranoid that something might happen in there or someone might be waiting for me in there . Pt's 3 day up 03/30/24; he is requesting to be discharged home. 03/30: Observed standing at nurses station throughout shift; not taking redirection from staff to please step away for pt confidentiality. Argumentative. 3 day up today; filed on; pt notified. Pt stated, you can't keep me here. I'm going to jose you and make your head spin 3 times! Your documents are not real! Refused Zyprexa. Per nursing, pt urinated in carton in unit hallway;continues to refuse utilizing bathroom. Per nursing, pt did not eat anything today. 03/31: Pacing in front of nurses station. disheveled, malodorous; encouraged to shower, however pt declined despite being offered shower chair and staff member to wait outside shower room if assistance is needed. Per nursing, pt urinated in cup and sensory room floor last evening. Pt continues to report paranoia regarding using bathroom; pt stated, I'm worried someone will be in the bathroom waiting for me because of who I am . When asked why he believes someone would want to hurt him; pt stated, I can't discuss that . denies SI/HI/VH/AH. He reports not eating d/t concerns that he may be poisoned by someone ; observed drinking water from water bottle. Pt offered Zyprexa PO per court ordered treatment plan; per nursing, pt initially refused then agreed to take. 04/01: Patient continues to stand or pace in front of nurses station. disheveled, malodorous; per nursing, pt urinated in trash in mileu last evening. T/W spoke to patient regarding using restroom on unit; pt continues to report concern that someone can try to kill me because of who I am and who my family is ; when asked why someone would hurt him. Pt stated, because we are well known in [place] and they may hurt me because of it ; pt unable to specify who they are. denies AH/VH. Pt was offered for staff member to examine restroom and stand outside to assure no one is waiting for him; however pt continues to decline. Patient stated, I feel like you guys are playing a psychotic game with me or that they are doing this for their entertainment . 04/02: Patient continues to present similar to days prior. He continues to report paranoia regarding using restroom, shower and eating. Pt stated, I urinated in the trash early in the morning ; he continues to state he will consider using restroom. Pt reports taking bites of breakfast this morning. denies any side effects from Zyprexa other than feeling tired; pt stated, I am feeling a bit calmer . Per nursing, pt slept in chair in [facility] for 7 hours last night. Will continue to build rapport. 04/03: Patient continues to report paranoia regarding using restroom, shower and eating. Pt was offered single room d/t continuous urinating in [facility]; pt declined. Pt stated, I don't think a single room would help. I'm still having the same thoughts . Pt reports he has increased his fluid intake with water, juice and milk; however he continues to report only take a few bites of food. 04/04: Discussed medications increases with pt which he refuses at this time. Focused on discharge, and where his belongings are being stored at this time. 04/05: Patient declined to meet with T/W in unit office; pt stated, I don't feel comfortable going into the office because I think someone would hurt me ; pt reassured no one would hurt him, however, he continued to decline. Met with pt in unit hallway. Patient reports he did not urinate yesterday; he was educated regarding medical complications that can occur with decreased intake of fluids and food. Pt stated, I know but it's not like I'm dying . Pt refused labs. Discussed various solutions of pt feeling safe to use restroom or shower. pt stated, I'm still worried someone is going to hurt me. I'm not sure who, but it's because I am along the lines of royalty and it's putting me in harms way if I use the bathroom, shower or eat . Pt reporting zyprexa is making him too tired ; plan to DC. start risperidal 1mg PO daily with plan to switch to PLAZA; discussed with pt. T/W spoke to patient's mother, Chio, who reports has not left the house in 2 years and has not bathed or used the restroom in a year. She expressed concern over his wellbeing of not drinking or eating. She plans on calling patient to encourage him increase fluid intake. 04/07: Pt continues similar to days prior. Pt reports he did not urinate yesterday. Refused labs again. Hearing was held today; Pt was commited. T/W informed pt of plan to increase risperidal. Pt to receive additional risperidal 1mg PO bedtime dose to night. Starting tomorrow, Increase: Risperidal 2mg PO bedtime. 04/08: Staying in common area, however, keeping to self. per nursing, pt urinated in multiple cups last evening in common area and declined to use restroom. Pt reports feeling frustrated about not being discharged ; T/W discussed plan with medications again. Pt requesting to be discharged home today; asking multiple staff. Pt continues to report paranoia regarding using toilet, shower, eating/drinking. Encouraged to allow labs. 04/10: No changes. Encourage ongoing med adherence especially for Risperdal. Also encourage elevating legs as per hospitalist evaluation on 04/06/2024. Ordering an extra large compression stockings. 04/11: Met with pt in unit office. Continues to stay in common areas. paranoid. Pt discussed paranoia regarding eating; pt stated, how do you know someone isn't trying to poison me? People in this hospital. Per nursing, ate 10% of one meal yesterday and 25% of one meal today, has not eaten anything otherwise. Patient continues to refuse labs; shower (pt reports he has not bathed himself since admission and refusing to change clothes). Declining to use bathroom. perseverating on discharge to go back home where I can continue doing these things and be more comfortable . Continues similar to days prior; ? possible cheeking, will switch to risperidal liquid. Increase dose to Risperidal 3mg PO bedtime. Wound consult ordered for bilateral legs 04/12: Met with pt in unit office. Continues to stay in common areas; declining to go into assigned room for any reason. He continues paranoid, anxious, fearful. Pt argumentative and requesting discharge since he has been able to meet with T/W in the unit office for the past 2 days. Discussed that pt does not allow for the door to be closed, continues with paranoia stating my safety is a concern if the door is closed . Declining bathroom and shower. Discussed change of medication to liquid d/t possible cheeking. 04/13: Pt continues paranoid, anxious, fearful. T/W and psychiatric social worker, Sabi, encouraged pt to walk into his room; lights were turned on to show no one was in the room and it was safe; however, pt continues to make paranoid statements of someone waiting to hurt him. Pt reports he did not urinate yesterday; discussed the importance of drinking fluids and eating meals. Per nursing, pt ate 5% of breakfast yesterday and declined lunch and dinner. Continue current tx plan. 04/14: Pt continues similar to days prior. Refusing to cross threshold into any room other than side office. Continues concerned that someone may hurt him if he goes into a room even if staff are with him. Per nursing, pt has not eaten or drank fluids today. He did urinate in trash can in the mileu and continues to refuse using restroom; despite having access to multiple bathrooms. Continue current tx plan. 04/15: T/W and RN attempting to reassure patient of his safety to be able to cross threshold into his room. Continues to believe someone may be hiding in the room to hurt him. Argumentative, attempting to change topic when asked questions about challenging his anxiety and paranoia. Per nursing, pt continues to have poor intake. Pt reports he did not urinate yesterday 04/17: No changes 04/18: Met with Dr. Lorenzana present. Pt continues to decline to go into bedroom or restroom; was willing to meet in side office with door open. He continues to discuss his anxiety and paranoia regarding being attacked by someone or snakes . Pt states he does not believe to have a mental illness ; requesting to be discharged home. Pt re-educated on goal of treatment. 04/19: Pt continues similar to days prior. Patient was given single room however pt continues to decline to enter room despite not having a room mate. He reports not urinating or having a bowel movement yesterday or today. Risperidal increased 4mg PO bedtime; pt aware. Labs ordered for tomorrow for monitoring of medical status while being treated with antipsychotics medications; informed consent obtained from guardian and patient is aware that informed consent was obtained. 04/20: pt continues to decline to enter his single room. Chair was placed between hallway and bedroom threshold; pt stated, I'm not going in there because I'm worried I might if I sit down . Continues with paranoid delusions. denies any side effects from increase in risperidal. encouraged to take Ativan to help with anxiety. Declined to go into his room to receive leg treatment. Declined to use restroom. 04/21: Continues with paranoid delusions; pt stated, I won't go in there because someone wants to kill me. I don't know who exactly. I know this from the narrative I hear and the symbolism I see on TV and commercial trucks . Declined to go into his room to receive leg treatment. Declined to use restroom. Eating/drinking minimally. Spoke with patient's mother and guardian, Chio, via phone. Reviewed current treatment plan and labs. Patient educated on: medication risk/benefits Reason for continued inpatient stay Substantial Risk for: med/psych decompensation Time Spent With Patient Time: Total time managing care of this patient today _20___ minutes.
[2024-04-21 20:00] VITALS: BP 105/65; PULSE 79; RESP 16; TEMP 36.3; O2SAT 99
[2024-04-21] MEDS: risperiDONE Oral Sol 1 MG/ML SOLUTION 4 MG PO (21:43)
[2024-04-22 08:00] VITALS: BP 104/61; PULSE 70; RESP 18; TEMP 36.3; O2SAT 100
--- NOTE | 2024-04-22 09:06 | P.PNPSI_ITS ---
Subjective Subjective Date of Service: 04/22/24 Reason For Visit: Schizophrenia Subjective Notes: Section 8 Interim History: Reviewed with Dr. Lorenzana. Patient continues similar to days prior. Continues with paranoid delusions; Declined to go into his room to receive leg treatment. Declined to use restroom. Eating/drinking minimally. Patient encouraged to challenge anxiety. Medication Compliance: Yes Side effects from medications: No Attending Groups: No Review of Systems Constitutional: Reports as per HPI Eyes: Reports as per HPI Reports as per HPI Cardiovascular: Reports as per HPI Respiratory: Reports as per HPI Gastrointestinal: Reports as per HPI Genitourinary: Reports as per HPI Musculoskeletal: Reports as per HPI Skin/Breast: Reports as per HPI Reports as per HPI Psychiatric: Reports as per HPI Endocrine: Reports as per HPI Hematologic/Lymphatic: Reports as per HPI Allergic/Immunologic: Reports as per HPI Mental Status Exam Mental Status Exam Narrative: Pt is alert and oriented; behavior is calm; dressed in hospital attire, malodorous, disheveled; mood is described as okay ; eye contact appropriate; Speech is normal rate, volume and not pressured; focused on discharge; paranoid, delusional. denies SI/HI. Insight and judgment are poor. Diagnostics Vital Signs (24Hr): Vital Signs - 24 hr 04/21/24 20:00 04/22/24 08:00 Temperature 97.3 F 97.3 F Pulse Rate 79 70 Respiratory Rate 16 18 Blood Pressure 105/65 104/61 Pulse Oximetry 99 100 Oxygen Delivery Method Room Air Room Air BMI result Body Mass Index 25.6 Labs 04/20/24 08:23 04/20/24 08:23 Labs: Laboratory Results - last 48 hr 04/20/24 08:23 Sodium 138 Potassium 3.8 Chloride 100 Carbon Dioxide 32 H Anion Gap 10 L BUN 12 Creatinine 0.87 Estim Creat Clear Calc 123.8 Estimated GFR > 60 Fasting Glucose 87 Calcium 9.6 Total Bilirubin 0.7 AST 23 ALT 28 Alkaline Phosphatase 89 Total Protein 8.0 Albumin 4.4 Triglycerides 116 Cholesterol 176 LDL Cholesterol, Calc 115 H HDL Cholesterol 38 L Vitamin B12 771 Folate 7.2 TSH 1.78 Medications Medications Current Medications Acetaminophen (Acetaminophen 325 Mg Tablet) 650 mg PO Q6H PRN PRN Reason: Headache/Pain Mild Scale (1-3) Al Hydroxide/Mg Hydroxide (Magnesium Hydrox/Alum Hydrox 30 Ml Oral.Susp) 30 ml PO Q6H PRN PRN Reason: Heartburn/Nausea Benztropine Mesylate (Benztropine Mesylate 1 Mg Tablet) 1 mg PO DAILY PRN PRN Reason: Extrapyramidal Effects Betamethasone Dipropion Augmented (Betamethasone Dip Aug 0.05% Cr 15 Gm Tube) 1 appl TOPICAL BID LENI; Protocol Last Admin: 04/21/24 20:28 Dose: Not Given Haloperidol Lactate (Haloperidol Lactate 5 Mg/Ml Vial) 5 mg IM DAILY PRN PRN Reason: Psychosis Hydroxyzine HCl (Hydroxyzine Hcl 25 Mg Tablet) 25 mg PO Q6H PRN PRN Reason: Anxiety Lactic Acid (Ammonium Lactate 12 % Cream 140 Gm Tube) 1 appl TOPICAL BID PRN; Protocol PRN Reason: Dry, scaly skin Last Admin: 04/18/24 20:53 Dose: 1 appl Lorazepam (Lorazepam 0.5 Mg Tablet) 0.5 mg PO BID LENI Last Admin: 04/22/24 08:53 Dose: Not Given Magnesium Hydroxide (Milk Of Magnesia 30 Ml Oral.Susp) 30 ml PO DAILY PRN PRN Reason: Constipation Nicotine Polacrilex (Nicotine Polacrilex 2 Mg Gum) 4 mg BUCCAL Q2H PRN PRN Reason: Nicotine Cravings Risperidone (Risperidone Oral Kami 1 Mg/Ml Solution) 4 mg PO BEDTIME [facility] Last Admin: 04/21/24 21:43 Dose: 4 mg Trazodone HCl (Trazodone Hcl 50 Mg Tablet) 50 mg PO BEDTIME MRX1 PRN PRN Reason: Insomnia Allergies Allergies Allergy/AdvReac Type Severity Reaction Status Date / Time Unable to Assess Allergy Verified 03/25/24 21:15 Assessment & Plan Assessment & Plan (1) Schizophrenia: Status: Acute Code(s): F20.9 - Schizophrenia, unspecified Plan 03/26: risperidone 1/2. collateral from mother. clarify legal circumstance/rolando's order. 03/27: refusing meds, not leaving his chair. urinating in cup beneath blanket. requesting immediate discharge. continue to offer medication. clarify legal circumstance and ability to involuntarily administer medication. diamond warning provided. 03/28: Sitting in chair in milieu. Per nursing, patient urinating in cups under blankets. Patient was notified that he must go to his room to use the toilet and can not urinate in common areas. Patient was able to walk down unit hallway with no assistance. Patient is requesting to have a wheelchair d/t being terrified of falling . Patient stated, I do not have any kind of condition. I am just worried about falling . Patient reports that he has not been eating much due to fear of being poisoned however, he would not elaborate as to who he believes is poisoning him. He reports at home he has been urinating in milk cartons and defecating in trash bags and having his mother dispose of these items. Patient agreed to take 1 mg of Risperdal PO; however, expressed paranoia towards RN about being a different medication/dosage despite being shown packaging. T/W obtained information from patient's mother, Chio; Chio reports patient has not been using the toilet for the past two years due to being afraid that snakes will get him and voices telling him the same. Chio reports, pt is also afraid of walking d/t fear of hitting his head. She reports patient has never been on antipsychotics and has only taken anti-anxiety medications for 3 weeks which patient discontinued. She denies history of inpatient psychiatric hospitalizations. She reports having guardianship due to patient being unable to care for self. 03/29: Observing pacing unit hallway. Keeping to self. Covering self with blanket. Per nursing, pt slept in chair in milieu for 5 hours last night. Refused medications last night and this morning. Pt reports he does not want to sleep in a bed d/t feeling more vulnerable when laying down . Patient reports he does not want to go into the bathroom because he is paranoid that something might happen in there or someone might be waiting for me in there . Pt's 3 day up 03/30/24; he is requesting to be discharged home. 03/30: Observed standing at nurses station throughout shift; not taking redirection from staff to please step away for pt confidentiality. Argumentative. 3 day up today; filed on; pt notified. Pt stated, you can't keep me here. I'm going to jose you and make your head spin 3 times! Your documents are not real! Refused Zyprexa. Per nursing, pt urinated in carton in unit hallway;continues to refuse utilizing bathroom. Per nursing, pt did not eat anything today. 03/31: Pacing in front of nurses station. disheveled, malodorous; encouraged to shower, however pt declined despite being offered shower chair and staff member to wait outside shower room if assistance is needed. Per nursing, pt urinated in cup and sensory room floor last evening. Pt continues to report paranoia regarding using bathroom; pt stated, I'm worried someone will be in the bathroom waiting for me because of who I am . When asked why he believes someone would want to hurt him; pt stated, I can't discuss that . denies SI/HI/VH/AH. He reports not eating d/t concerns that he may be poisoned by someone ; observed drinking water from water bottle. Pt offered Zyprexa PO per court ordered treatment plan; per nursing, pt initially refused then agreed to take. 04/01: Patient continues to stand or pace in front of nurses station. disheveled, malodorous; per nursing, pt urinated in trash in mileu last evening. T/W spoke to patient regarding using restroom on unit; pt continues to report concern that someone can try to kill me because of who I am and who my family is ; when asked why someone would hurt him. Pt stated, because we are well known in [place] and they may hurt me because of it ; pt unable to specify who they are. denies AH/VH. Pt was offered for staff member to examine restroom and stand outside to assure no one is waiting for him; however pt continues to decline. Patient stated, I feel like you guys are playing a psychotic game with me or that they are doing this for their entertainment . 04/02: Patient continues to present similar to days prior. He continues to report paranoia regarding using restroom, shower and eating. Pt stated, I urinated in the trash early in the morning ; he continues to state he will consider using restroom. Pt reports taking bites of breakfast this morning. denies any side effects from Zyprexa other than feeling tired; pt stated, I am feeling a bit calmer . Per nursing, pt slept in chair in [facility] for 7 hours last night. Will continue to build rapport. 04/03: Patient continues to report paranoia regarding using restroom, shower and eating. Pt was offered single room d/t continuous urinating in [facility]; pt declined. Pt stated, I don't think a single room would help. I'm still having the same thoughts . Pt reports he has increased his fluid intake with water, juice and milk; however he continues to report only take a few bites of food. 04/04: Discussed medications increases with pt which he refuses at this time. Focused on discharge, and where his belongings are being stored at this time. 04/05: Patient declined to meet with T/W in unit office; pt stated, I don't feel comfortable going into the office because I think someone would hurt me ; pt reassured no one would hurt him, however, he continued to decline. Met with pt in unit hallway. Patient reports he did not urinate yesterday; he was educated regarding medical complications that can occur with decreased intake of fluids and food. Pt stated, I know but it's not like I'm dying . Pt refused labs. Discussed various solutions of pt feeling safe to use restroom or shower. pt stated, I'm still worried someone is going to hurt me. I'm not sure who, but it's because I am along the lines of royalty and it's putting me in harms way if I use the bathroom, shower or eat . Pt reporting zyprexa is making him too tired ; plan to DC. start risperidal 1mg PO daily with plan to switch to PLAZA; discussed with pt. T/W spoke to patient's mother, Chio, who reports has not left the house in 2 years and has not bathed or used the restroom in a year. She expressed concern over his wellbeing of not drinking or eating. She plans on calling patient to encourage him increase fluid intake. 04/07: Pt continues similar to days prior. Pt reports he did not urinate yesterday. Refused labs again. Hearing was held today; Pt was commited. T/W informed pt of plan to increase risperidal. Pt to receive additional risperidal 1mg PO bedtime dose to night. Starting tomorrow, Increase: Risperidal 2mg PO bedtime. 04/08: Staying in common area, however, keeping to self. per nursing, pt urinated in multiple cups last evening in common area and declined to use restroom. Pt reports feeling frustrated about not being discharged ; T/W discussed plan with medications again. Pt requesting to be discharged home today; asking multiple staff. Pt continues to report paranoia regarding using toilet, shower, eating/drinking. Encouraged to allow labs. 04/10: No changes. Encourage ongoing med adherence especially for Risperdal. Also encourage elevating legs as per hospitalist evaluation on 04/06/2024. Ordering an extra large compression stockings. 04/11: Met with pt in unit office. Continues to stay in common areas. paranoid. Pt discussed paranoia regarding eating; pt stated, how do you know someone isn't trying to poison me? People in this hospital. Per nursing, ate 10% of one meal yesterday and 25% of one meal today, has not eaten anything otherwise. Patient continues to refuse labs; shower (pt reports he has not bathed himself since admission and refusing to change clothes). Declining to use bathroom. perseverating on discharge to go back home where I can continue doing these things and be more comfortable . Continues similar to days prior; ? possible cheeking, will switch to risperidal liquid. Increase dose to Risperidal 3mg PO bedtime. Wound consult ordered for bilateral legs 04/12: Met with pt in unit office. Continues to stay in common areas; declining to go into assigned room for any reason. He continues paranoid, anxious, fearful. Pt argumentative and requesting discharge since he has been able to meet with T/W in the unit office for the past 2 days. Discussed that pt does not allow for the door to be closed, continues with paranoia stating my safety is a concern if the door is closed . Declining bathroom and shower. Discussed change of medication to liquid d/t possible cheeking. 04/13: Pt continues paranoid, anxious, fearful. T/W and bilingual social worker, Sabi, encouraged pt to walk into his room; lights were turned on to show no one was in the room and it was safe; however, pt continues to make paranoid statements of someone waiting to hurt him. Pt reports he did not urinate yesterday; discussed the importance of drinking fluids and eating meals. Per nursing, pt ate 5% of breakfast yesterday and declined lunch and dinner. Continue current tx plan. 04/14: Pt continues similar to days prior. Refusing to cross threshold into any room other than side office. Continues concerned that someone may hurt him if he goes into a room even if staff are with him. Per nursing, pt has not eaten or drank fluids today. He did urinate in trash can in the mileu and continues to refuse using restroom; despite having access to multiple bathrooms. Continue current tx plan. 04/15: T/W and RN attempting to reassure patient of his safety to be able to cross threshold into his room. Continues to believe someone may be hiding in the room to hurt him. Argumentative, attempting to change topic when asked questions about challenging his anxiety and paranoia. Per nursing, pt continues to have poor intake. Pt reports he did not urinate yesterday 04/17: No changes 04/18: Met with Dr. Lorenzana present. Pt continues to decline to go into bedroom or restroom; was willing to meet in side office with door open. He continues to discuss his anxiety and paranoia regarding being attacked by someone or snakes . Pt states he does not believe to have a mental illness ; requesting to be discharged home. Pt re-educated on goal of treatment. 04/19: Pt continues similar to days prior. Patient was given single room however pt continues to decline to enter room despite not having a room mate. He reports not urinating or having a bowel movement yesterday or today. Risperidal increased 4mg PO bedtime; pt aware. Labs ordered for tomorrow for monitoring of medical status while being treated with antipsychotics medications; informed consent obtained from guardian and patient is aware that informed consent was obtained. 04/20: pt continues to decline to enter his single room. Chair was placed between hallway and bedroom threshold; pt stated, I'm not going in there because I'm worried I might if I sit down . Continues with paranoid delusions. denies any side effects from increase in risperidal. encouraged to take Ativan to help with anxiety. Declined to go into his room to receive leg treatment. Declined to use restroom. 04/21: Continues with paranoid delusions; pt stated, I won't go in there because someone wants to kill me. I don't know who exactly. I know this from the narrative I hear and the symbolism I see on TV and commercial trucks . Declined to go into his room to receive leg treatment. Declined to use restroom. Eating/drinking minimally. Spoke with patient's mother and guardian, Chio, via phone. Reviewed current treatment plan and labs. 04/22: Patient continues similar to days prior. Continues with paranoid delusions; Declined to go into his room to receive leg treatment. Declined to use restroom. Eating/drinking minimally. Patient encouraged to challenge anxiety. Patient educated on: diagnosis, medication risk/benefits and therapeutic strategies Reason for continued inpatient stay Substantial Risk for: med/psych decompensation Time Spent With Patient Time: Total time managing care of this patient today _20___ minutes.
[2024-04-22 19:25] VITALS: BP 108/60; PULSE 72; RESP 14; TEMP 36.7; O2SAT 99
[2024-04-22] MEDS: risperiDONE Oral Sol 1 MG/ML SOLUTION 4 MG PO (23:09)
--- NOTE | 2024-04-23 07:41 | P.PNPSI_ITS ---
Subjective Subjective Date of Service: 04/23/24 Reason For Visit: Schizophrenia Subjective Notes: Section 8 Interim History: Pt seating in common area. He reports at times does not know who or what to trust. He reports sometimes he worries about food here and also medications- as to their safety and accuracy of what staff tells him it is. He denies SI/HI. No behavioral concerns. Review of Systems Review of Systems no acute changes Constitutional: Reports as per HPI Eyes: Reports as per HPI Reports as per HPI Cardiovascular: Reports as per HPI Respiratory: Reports as per HPI Gastrointestinal: Reports as per HPI Genitourinary: Reports as per HPI Musculoskeletal: Reports as per HPI Skin/Breast: Reports as per HPI Reports as per HPI Psychiatric: Reports as per HPI Endocrine: Reports as per HPI Hematologic/Lymphatic: Reports as per HPI Allergic/Immunologic: Reports as per HPI Mental Status Exam Mental Status Exam Narrative: Pt is alert and oriented; behavior is calm; dressed in hospital attire, malodorous, disheveled; mood is described as okay ; eye contact appropriate; Speech is normal rate, volume and not pressured; focused on discharge; paranoid, delusional. denies SI/HI. Insight and judgment are poor. Diagnostics Vital Signs (24Hr): Vital Signs - 24 hr 04/22/24 08:00 04/22/24 19:25 Temperature 97.3 F 98.0 F Pulse Rate 70 72 Respiratory Rate 18 14 Blood Pressure 104/61 108/60 Pulse Oximetry 100 99 Oxygen Delivery Method Room Air Room Air BMI result Body Mass Index 25.6 Labs 04/20/24 08:23 04/20/24 08:23 Medications Medications Current Medications Acetaminophen (Acetaminophen 325 Mg Tablet) 650 mg PO Q6H PRN PRN Reason: Headache/Pain Mild Scale (1-3) Al Hydroxide/Mg Hydroxide (Magnesium Hydrox/Alum Hydrox 30 Ml Oral.Susp) 30 ml PO Q6H PRN PRN Reason: Heartburn/Nausea Benztropine Mesylate (Benztropine Mesylate 1 Mg Tablet) 1 mg PO DAILY PRN PRN Reason: Extrapyramidal Effects Betamethasone Dipropion Augmented (Betamethasone Dip Aug 0.05% Cr 15 Gm Tube) 1 appl TOPICAL BID LENI; Protocol Last Admin: 04/22/24 23:12 Dose: Not Given Haloperidol Lactate (Haloperidol Lactate 5 Mg/Ml Vial) 5 mg IM DAILY PRN PRN Reason: Psychosis Hydroxyzine HCl (Hydroxyzine Hcl 25 Mg Tablet) 25 mg PO Q6H PRN PRN Reason: Anxiety Lactic Acid (Ammonium Lactate 12 % Cream 140 Gm Tube) 1 appl TOPICAL BID PRN; Protocol PRN Reason: Dry, scaly skin Last Admin: 04/18/24 20:53 Dose: 1 appl Lorazepam (Lorazepam 0.5 Mg Tablet) 0.5 mg PO BID LENI Last Admin: 04/22/24 23:11 Dose: Not Given Magnesium Hydroxide (Milk Of Magnesia 30 Ml Oral.Susp) 30 ml PO DAILY PRN PRN Reason: Constipation Nicotine Polacrilex (Nicotine Polacrilex 2 Mg Gum) 4 mg BUCCAL Q2H PRN PRN Reason: Nicotine Cravings Risperidone (Risperidone Oral Kami 1 Mg/Ml Solution) 4 mg PO BEDTIME LENI Last Admin: 04/22/24 23:09 Dose: 4 mg Trazodone HCl (Trazodone Hcl 50 Mg Tablet) 50 mg PO BEDTIME MRX1 PRN PRN Reason: Insomnia Allergies Allergies Allergy/AdvReac Type Severity Reaction Status Date / Time Unable to Assess Allergy Verified 03/25/24 21:15 Assessment & Plan Assessment & Plan (1) Schizophrenia: Status: Acute Code(s): F20.9 - Schizophrenia, unspecified Plan 03/26: risperidone 05/05. collateral from mother. clarify legal circumstance/rolando's order. 03/27: refusing meds, not leaving his chair. urinating in cup beneath blanket. requesting immediate discharge. continue to offer medication. clarify legal circumstance and ability to involuntarily administer medication. diamond warning provided. 03/28: Sitting in chair in milieu. Per nursing, patient urinating in cups under blankets. Patient was notified that he must go to his room to use the toilet and can not urinate in common areas. Patient was able to walk down unit hallway with no assistance. Patient is requesting to have a wheelchair d/t being terrified of falling . Patient stated, I do not have any kind of condition. I am just worried about falling . Patient reports that he has not been eating much due to fear of being poisoned however, he would not elaborate as to who he believes is poisoning him. He reports at home he has been urinating in milk cartons and defecating in trash bags and having his mother dispose of these items. Patient agreed to take 1 mg of Risperdal PO; however, expressed paranoia towards RN about being a different medication/dosage despite being shown packaging. T/W obtained information from patient's mother, Chio; Chio reports patient has not been using the toilet for the past two years due to being afraid that snakes will get him and voices telling him the same. Chio reports, pt is also afraid of walking d/t fear of hitting his head. She reports patient has never been on antipsychotics and has only taken anti-anxiety medications for 3 weeks which patient discontinued. She denies history of inpatient psychiatric hospitalizations. She reports having guardianship due to patient being unable to care for self. 03/29: Observing pacing unit hallway. Keeping to self. Covering self with blanket. Per nursing, pt slept in chair in milieu for 5 hours last night. Refused medications last night and this morning. Pt reports he does not want to sleep in a bed d/t feeling more vulnerable when laying down . Patient reports he does not want to go into the bathroom because he is paranoid that something might happen in there or someone might be waiting for me in there . Pt's 3 day up 03/30/24; he is requesting to be discharged home. 03/30: Observed standing at nurses station throughout shift; not taking redirection from staff to please step away for pt confidentiality. Argumentative. 3 day up today; filed on; pt notified. Pt stated, you can't keep me here. I'm going to jose you and make your head spin 3 times! Your documents are not real! Refused Zyprexa. Per nursing, pt urinated in carton in unit hallway;continues to refuse utilizing bathroom. Per nursing, pt did not eat anything today. 03/31: Pacing in front of nurses station. disheveled, malodorous; encouraged to shower, however pt declined despite being offered shower chair and staff member to wait outside shower room if assistance is needed. Per nursing, pt urinated in cup and sensory room floor last evening. Pt continues to report paranoia regarding using bathroom; pt stated, I'm worried someone will be in the bathroom waiting for me because of who I am . When asked why he believes someone would want to hurt him; pt stated, I can't discuss that . denies SI/HI/VH/AH. He reports not eating d/t concerns that he may be poisoned by someone ; observed drinking water from water bottle. Pt offered Zyprexa PO per court ordered treatment plan; per nursing, pt initially refused then agreed to take. 04/01: Patient continues to stand or pace in front of nurses station. disheveled, malodorous; per nursing, pt urinated in trash in [facility] last evening. T/W spoke to patient regarding using restroom on unit; pt continues to report concern that someone can try to kill me because of who I am and who my family is ; when asked why someone would hurt him. Pt stated, because we are well known in [place] and they may hurt me because of it ; pt unable to specify who they are. denies AH/VH. Pt was offered for staff member to examine restroom and stand outside to assure no one is waiting for him; however pt continues to decline. Patient stated, I feel like you guys are playing a psychotic game with me or that they are doing this for their entertainment . 04/02: Patient continues to present similar to days prior. He continues to report paranoia regarding using restroom, shower and eating. Pt stated, I urinated in the trash early in the morning ; he continues to state he will consider using restroom. Pt reports taking bites of breakfast this morning. denies any side effects from Zyprexa other than feeling tired; pt stated, I am feeling a bit calmer . Per nursing, pt slept in chair in [facility] for 7 hours last night. Will continue to build rapport. 04/03: Patient continues to report paranoia regarding using restroom, shower and eating. Pt was offered single room d/t continuous urinating in [facility]; pt declined. Pt stated, I don't think a single room would help. I'm still having the same thoughts . Pt reports he has increased his fluid intake with water, juice and milk; however he continues to report only take a few bites of food. 04/04: Discussed medications increases with pt which he refuses at this time. Focused on discharge, and where his belongings are being stored at this time. 04/05: Patient declined to meet with T/W in unit office; pt stated, I don't feel comfortable going into the office because I think someone would hurt me ; pt reassured no one would hurt him, however, he continued to decline. Met with pt in unit hallway. Patient reports he did not urinate yesterday; he was educated regarding medical complications that can occur with decreased intake of fluids and food. Pt stated, I know but it's not like I'm dying . Pt refused labs. Discussed various solutions of pt feeling safe to use restroom or shower. pt stated, I'm still worried someone is going to hurt me. I'm not sure who, but it's because I am along the lines of royalty and it's putting me in harms way if I use the bathroom, shower or eat . Pt reporting zyprexa is making him too tired ; plan to DC. start risperidal 1mg PO daily with plan to switch to PLAZA; discussed with pt. T/W spoke to patient's mother, Chio, who reports has not left the house in 2 years and has not bathed or used the restroom in a year. She expressed concern over his wellbeing of not drinking or eating. She plans on calling patient to encourage him increase fluid intake. 04/07: Pt continues similar to days prior. Pt reports he did not urinate yesterday. Refused labs again. Hearing was held today; Pt was commited. T/W informed pt of plan to increase risperidal. Pt to receive additional risperidal 1mg PO bedtime dose to night. Starting tomorrow, Increase: Risperidal 2mg PO bedtime. 04/08: Staying in common area, however, keeping to self. per nursing, pt urinated in multiple cups last evening in common area and declined to use restroom. Pt reports feeling frustrated about not being discharged ; T/W discussed plan with medications again. Pt requesting to be discharged home today; asking multiple staff. Pt continues to report paranoia regarding using toilet, shower, eating/drinking. Encouraged to allow labs. 04/10: No changes. Encourage ongoing med adherence especially for Risperdal. Also encourage elevating legs as per hospitalist evaluation on 04/06/2024. Ordering an extra large compression stockings. 04/11: Met with pt in unit office. Continues to stay in common areas. paranoid. Pt discussed paranoia regarding eating; pt stated, how do you know someone isn't trying to poison me? People in this hospital. Per nursing, ate 10% of one meal yesterday and 25% of one meal today, has not eaten anything otherwise. Patient continues to refuse labs; shower (pt reports he has not bathed himself since admission and refusing to change clothes). Declining to use bathroom. perseverating on discharge to go back home where I can continue doing these things and be more comfortable . Continues similar to days prior; ? possible cheeking, will switch to risperidal liquid. Increase dose to Risperidal 3mg PO bedtime. Wound consult ordered for bilateral legs 04/12: Met with pt in unit office. Continues to stay in common areas; declining to go into assigned room for any reason. He continues paranoid, anxious, fearful. Pt argumentative and requesting discharge since he has been able to meet with T/W in the unit office for the past 2 days. Discussed that pt does not allow for the door to be closed, continues with paranoia stating my safety is a concern if the door is closed . Declining bathroom and shower. Discussed change of medication to liquid d/t possible cheeking. 04/13: Pt continues paranoid, anxious, fearful. T/W and social studies department chair, Sabi, encouraged pt to walk into his room; lights were turned on to show no one was in the room and it was safe; however, pt continues to make paranoid statements of someone waiting to hurt him. Pt reports he did not urinate yesterday; discussed the importance of drinking fluids and eating meals. Per nursing, pt ate 5% of breakfast yesterday and declined lunch and dinner. Continue current tx plan. 04/14: Pt continues similar to days prior. Refusing to cross threshold into any room other than side office. Continues concerned that someone may hurt him if he goes into a room even if staff are with him. Per nursing, pt has not eaten or drank fluids today. He did urinate in trash can in the mileu and continues to refuse using restroom; despite having access to multiple bathrooms. Continue current tx plan. 04/15: T/W and RN attempting to reassure patient of his safety to be able to cross threshold into his room. Continues to believe someone may be hiding in the room to hurt him. Argumentative, attempting to change topic when asked questions about challenging his anxiety and paranoia. Per nursing, pt continues to have poor intake. Pt reports he did not urinate yesterday 04/17: No changes 04/18: Met with Dr. Lorenzana present. Pt continues to decline to go into bedroom or restroom; was willing to meet in side office with door open. He continues to discuss his anxiety and paranoia regarding being attacked by someone or snakes . Pt states he does not believe to have a mental illness ; requesting to be discharged home. Pt re-educated on goal of treatment. 04/19: Pt continues similar to days prior. Patient was given single room however pt continues to decline to enter room despite not having a room mate. He reports not urinating or having a bowel movement yesterday or today. Risperidal increased 4mg PO bedtime; pt aware. Labs ordered for tomorrow for monitoring of medical status while being treated with antipsychotics medications; informed consent obtained from guardian and patient is aware that informed consent was obtained. 04/20: pt continues to decline to enter his single room. Chair was placed between hallway and bedroom threshold; pt stated, I'm not going in there because I'm worried I might if I sit down . Continues with paranoid delusions. denies any side effects from increase in risperidal. encouraged to take Ativan to help with anxiety. Declined to go into his room to receive leg treatment. Declined to use restroom. 04/21: Continues with paranoid delusions; pt stated, I won't go in there because someone wants to kill me. I don't know who exactly. I know this from the narrative I hear and the symbolism I see on TV and commercial trucks . Declined to go into his room to receive leg treatment. Declined to use restroom. Eating/drinking minimally. Spoke with patient's mother and guardian, Chio, via phone. Reviewed current treatment plan and labs. 04/22: Patient continues similar to days prior. Continues with paranoid delusions; Declined to go into his room to receive leg treatment. Declined to use restroom. Eating/drinking minimally. Patient encouraged to challenge anxiety. 04/23 continue tx. Reason for continued inpatient stay Substantial Risk for: inability to function Time Spent With Patient Time: Total time managing care of this patient today ____ minutes.
[2024-04-23 19:25] VITALS: BP 90/59; PULSE 72; RESP 16; TEMP 36.4; O2SAT 100
[2024-04-23] MEDS: risperiDONE Oral Sol 1 MG/ML SOLUTION 4 MG PO (23:15)
--- NOTE | 2024-04-24 10:06 | HO.PSYCHPN ---
Subjective Subjective Date of Service: 04/24/24 Reason For Visit: Schizophrenia Subjective Notes: Conditional Voluntary Interim History: Pt continues to present as paranoid and suspicious. He does not go to his room. He stays day and night seating in common area. He denies SI/HI. He is taking risperidone 4mg, will increased to 6mg po qhs but may want to consider switch to another antipsychotic. No behavioral concerns. Review of Systems Review of Systems no acute changes Constitutional: Reports as per HPI Eyes: Reports as per HPI Reports as per HPI Cardiovascular: Reports as per HPI Respiratory: Reports as per HPI Gastrointestinal: Reports as per HPI Genitourinary: Reports as per HPI Musculoskeletal: Reports as per HPI Skin/Breast: Reports as per HPI Reports as per HPI Psychiatric: Reports as per HPI Endocrine: Reports as per HPI Hematologic/Lymphatic: Reports as per HPI Allergic/Immunologic: Reports as per HPI Mental Status Exam Mental Status Exam Patient Appearance: Fatigued and Disheveled Patient Orientation: Person and Place Level of Consciousness: Alert Patient Behavior: Guarded, Talkative, Suspicious, Resistive to Care, Distractible and Good Eye Contact Mood Description: Blunted Affect Description: Blunted Patient Cognition Impaired: No Ability to Follow Directions: Fair Speech Pattern: Spontaneous Speech Memory Description: Episodic Impaired Diagnostics Vital Signs (24Hr): Vital Signs - 24 hr 04/23/24 19:25 Temperature 97.6 F Pulse Rate 72 Respiratory Rate 16 Blood Pressure 90/59 L Pulse Oximetry 100 Oxygen Delivery Method Room Air BMI result Body Mass Index 25.6 Labs 04/20/24 08:23 04/20/24 08:23 Medications Medications Current Medications Acetaminophen (Acetaminophen 325 Mg Tablet) 650 mg PO Q6H PRN PRN Reason: Headache/Pain Mild Scale (1-3) Al Hydroxide/Mg Hydroxide (Magnesium Hydrox/Alum Hydrox 30 Ml Oral.Susp) 30 ml PO Q6H PRN PRN Reason: Heartburn/Nausea Benztropine Mesylate (Benztropine Mesylate 1 Mg Tablet) 1 mg PO DAILY PRN PRN Reason: Extrapyramidal Effects Betamethasone Dipropion Augmented (Betamethasone Dip Aug 0.05% Cr 15 Gm Tube) 1 appl TOPICAL BID LENI; Protocol Last Admin: 04/24/24 08:31 Dose: Not Given Haloperidol Lactate (Haloperidol Lactate 5 Mg/Ml Vial) 5 mg IM DAILY PRN PRN Reason: Psychosis Hydroxyzine HCl (Hydroxyzine Hcl 25 Mg Tablet) 25 mg PO Q6H PRN PRN Reason: Anxiety Lactic Acid (Ammonium Lactate 12 % Cream 140 Gm Tube) 1 appl TOPICAL BID PRN; Protocol PRN Reason: Dry, scaly skin Last Admin: 04/18/24 20:53 Dose: 1 appl Lorazepam (Lorazepam 0.5 Mg Tablet) 0.5 mg PO BID [facility] Last Admin: 04/24/24 08:31 Dose: Not Given Magnesium Hydroxide (Milk Of Magnesia 30 Ml Oral.Susp) 30 ml PO DAILY PRN PRN Reason: Constipation Nicotine Polacrilex (Nicotine Polacrilex 2 Mg Gum) 4 mg BUCCAL Q2H PRN PRN Reason: Nicotine Cravings Risperidone (Risperidone Oral Kami 1 Mg/Ml Solution) 4 mg PO BEDTIME [facility] Last Admin: 04/23/24 23:15 Dose: 4 mg Trazodone HCl (Trazodone Hcl 50 Mg Tablet) 50 mg PO BEDTIME [id number] PRN PRN Reason: Insomnia Allergies Allergies Allergy/AdvReac Type Severity Reaction Status Date / Time Unable to Assess Allergy Verified 03/25/24 21:15 Assessment & Plan Assessment & Plan (1) Schizophrenia: Status: Acute Code(s): F20.9 - Schizophrenia, unspecified Plan 03/26: risperidone 05/05. collateral from mother. clarify legal circumstance/rolando's order. 03/27: refusing meds, not leaving his chair. urinating in cup beneath blanket. requesting immediate discharge. continue to offer medication. clarify legal circumstance and ability to involuntarily administer medication. diamond warning provided. 03/28: Sitting in chair in milieu. Per nursing, patient urinating in cups under blankets. Patient was notified that he must go to his room to use the toilet and can not urinate in common areas. Patient was able to walk down unit hallway with no assistance. Patient is requesting to have a wheelchair d/t being terrified of falling . Patient stated, I do not have any kind of condition. I am just worried about falling . Patient reports that he has not been eating much due to fear of being poisoned however, he would not elaborate as to who he believes is poisoning him. He reports at home he has been urinating in milk cartons and defecating in trash bags and having his mother dispose of these items. Patient agreed to take 1 mg of Risperdal PO; however, expressed paranoia towards RN about being a different medication/dosage despite being shown packaging. T/W obtained information from patient's mother, Chio; Chio reports patient has not been using the toilet for the past two years due to being afraid that snakes will get him and voices telling him the same. Chio reports, pt is also afraid of walking d/t fear of hitting his head. She reports patient has never been on antipsychotics and has only taken anti-anxiety medications for 3 weeks which patient discontinued. She denies history of inpatient psychiatric hospitalizations. She reports having guardianship due to patient being unable to care for self. 03/29: Observing pacing unit hallway. Keeping to self. Covering self with blanket. Per nursing, pt slept in chair in milieu for 5 hours last night. Refused medications last night and this morning. Pt reports he does not want to sleep in a bed d/t feeling more vulnerable when laying down . Patient reports he does not want to go into the bathroom because he is paranoid that something might happen in there or someone might be waiting for me in there . Pt's 3 day up 03/30/24; he is requesting to be discharged home. 03/30: Observed standing at nurses station throughout shift; not taking redirection from staff to please step away for pt confidentiality. Argumentative. 3 day up today; filed on; pt notified. Pt stated, you can't keep me here. I'm going to jose you and make your head spin 3 times! Your documents are not real! Refused Zyprexa. Per nursing, pt urinated in carton in unit hallway;continues to refuse utilizing bathroom. Per nursing, pt did not eat anything today. 03/31: Pacing in front of nurses station. disheveled, malodorous; encouraged to shower, however pt declined despite being offered shower chair and staff member to wait outside shower room if assistance is needed. Per nursing, pt urinated in cup and sensory room floor last evening. Pt continues to report paranoia regarding using bathroom; pt stated, I'm worried someone will be in the bathroom waiting for me because of who I am . When asked why he believes someone would want to hurt him; pt stated, I can't discuss that . denies SI/HI/VH/AH. He reports not eating d/t concerns that he may be poisoned by someone ; observed drinking water from water bottle. Pt offered Zyprexa PO per court ordered treatment plan; per nursing, pt initially refused then agreed to take. 04/01: Patient continues to stand or pace in front of nurses station. disheveled, malodorous; per nursing, pt urinated in trash in [facility] last evening. T/W spoke to patient regarding using restroom on unit; pt continues to report concern that someone can try to kill me because of who I am and who my family is ; when asked why someone would hurt him. Pt stated, because we are well known in [place] and they may hurt me because of it ; pt unable to specify who they are. denies AH/VH. Pt was offered for staff member to examine restroom and stand outside to assure no one is waiting for him; however pt continues to decline. Patient stated, I feel like you guys are playing a psychotic game with me or that they are doing this for their entertainment . 04/02: Patient continues to present similar to days prior. He continues to report paranoia regarding using restroom, shower and eating. Pt stated, I urinated in the trash early in the morning ; he continues to state he will consider using restroom. Pt reports taking bites of breakfast this morning. denies any side effects from Zyprexa other than feeling tired; pt stated, I am feeling a bit calmer . Per nursing, pt slept in chair in [facility] institute for 7 hours last night. Will continue to build rapport. 04/03: Patient continues to report paranoia regarding using restroom, shower and eating. Pt was offered single room d/t continuous urinating in [facility]; pt declined. Pt stated, I don't think a single room would help. I'm still having the same thoughts . Pt reports he has increased his fluid intake with water, juice and milk; however he continues to report only take a few bites of food. 04/04: Discussed medications increases with pt which he refuses at this time. Focused on discharge, and where his belongings are being stored at this time. 04/05: Patient declined to meet with T/W in unit office; pt stated, I don't feel comfortable going into the office because I think someone would hurt me ; pt reassured no one would hurt him, however, he continued to decline. Met with pt in unit hallway. Patient reports he did not urinate yesterday; he was educated regarding medical complications that can occur with decreased intake of fluids and food. Pt stated, I know but it's not like I'm dying . Pt refused labs. Discussed various solutions of pt feeling safe to use restroom or shower. pt stated, I'm still worried someone is going to hurt me. I'm not sure who, but it's because I am along the lines of royalty and it's putting me in harms way if I use the bathroom, shower or eat . Pt reporting zyprexa is making him too tired ; plan to DC. start risperidal 1mg PO daily with plan to switch to PLAZA; discussed with pt. T/W spoke to patient's mother, Chio, who reports has not left the house in 2 years and has not bathed or used the restroom in a year. She expressed concern over his wellbeing of not drinking or eating. She plans on calling patient to encourage him increase fluid intake. 04/07: Pt continues similar to days prior. Pt reports he did not urinate yesterday. Refused labs again. Hearing was held today; Pt was commited. T/W informed pt of plan to increase risperidal. Pt to receive additional risperidal 1mg PO bedtime dose to night. Starting tomorrow, Increase: Risperidal 2mg PO bedtime. 04/08: Staying in common area, however, keeping to self. per nursing, pt urinated in multiple cups last evening in common area and declined to use restroom. Pt reports feeling frustrated about not being discharged ; T/W discussed plan with medications again. Pt requesting to be discharged home today; asking multiple staff. Pt continues to report paranoia regarding using toilet, shower, eating/drinking. Encouraged to allow labs. 04/10: No changes. Encourage ongoing med adherence especially for Risperdal. Also encourage elevating legs as per hospitalist evaluation on 04/06/2024. Ordering an extra large compression stockings. 04/11: Met with pt in unit office. Continues to stay in common areas. paranoid. Pt discussed paranoia regarding eating; pt stated, how do you know someone isn't trying to poison me? People in this hospital. Per nursing, ate 10% of one meal yesterday and 25% of one meal today, has not eaten anything otherwise. Patient continues to refuse labs; shower (pt reports he has not bathed himself since admission and refusing to change clothes). Declining to use bathroom. perseverating on discharge to go back home where I can continue doing these things and be more comfortable . Continues similar to days prior; ? possible cheeking, will switch to risperidal liquid. Increase dose to Risperidal 3mg PO bedtime. Wound consult ordered for bilateral legs 04/12: Met with pt in unit office. Continues to stay in common areas; declining to go into assigned room for any reason. He continues paranoid, anxious, fearful. Pt argumentative and requesting discharge since he has been able to meet with T/W in the unit office for the past 2 days. Discussed that pt does not allow for the door to be closed, continues with paranoia stating my safety is a concern if the door is closed . Declining bathroom and shower. Discussed change of medication to liquid d/t possible cheeking. 04/13: Pt continues paranoid, anxious, fearful. T/W and community mental health social worker, Sabi, encouraged pt to walk into his room; lights were turned on to show no one was in the room and it was safe; however, pt continues to make paranoid statements of someone waiting to hurt him. Pt reports he did not urinate yesterday; discussed the importance of drinking fluids and eating meals. Per nursing, pt ate 5% of breakfast yesterday and declined lunch and dinner. Continue current tx plan. 04/14: Pt continues similar to days prior. Refusing to cross threshold into any room other than side office. Continues concerned that someone may hurt him if he goes into a room even if staff are with him. Per nursing, pt has not eaten or drank fluids today. He did urinate in trash can in the mileu and continues to refuse using restroom; despite having access to multiple bathrooms. Continue current tx plan. 04/15: T/W and RN attempting to reassure patient of his safety to be able to cross threshold into his room. Continues to believe someone may be hiding in the room to hurt him. Argumentative, attempting to change topic when asked questions about challenging his anxiety and paranoia. Per nursing, pt continues to have poor intake. Pt reports he did not urinate yesterday 04/17: No changes 04/18: Met with Dr. Lorenzana present. Pt continues to decline to go into bedroom or restroom; was willing to meet in side office with door open. He continues to discuss his anxiety and paranoia regarding being attacked by someone or snakes . Pt states he does not believe to have a mental illness ; requesting to be discharged home. Pt re-educated on goal of treatment. 04/19: Pt continues similar to days prior. Patient was given single room however pt continues to decline to enter room despite not having a room mate. He reports not urinating or having a bowel movement yesterday or today. Risperidal increased 4mg PO bedtime; pt aware. Labs ordered for tomorrow for monitoring of medical status while being treated with antipsychotics medications; informed consent obtained from guardian and patient is aware that informed consent was obtained. 04/20: pt continues to decline to enter his single room. Chair was placed between hallway and bedroom threshold; pt stated, I'm not going in there because I'm worried I might if I sit down . Continues with paranoid delusions. denies any side effects from increase in risperidal. encouraged to take Ativan to help with anxiety. Declined to go into his room to receive leg treatment. Declined to use restroom. 04/21: Continues with paranoid delusions; pt stated, I won't go in there because someone wants to kill me. I don't know who exactly. I know this from the narrative I hear and the symbolism I see on TV and commercial trucks . Declined to go into his room to receive leg treatment. Declined to use restroom. Eating/drinking minimally. Spoke with patient's mother and guardian, Chio, via phone. Reviewed current treatment plan and labs. 04/22: Patient continues similar to days prior. Continues with paranoid delusions; Declined to go into his room to receive leg treatment. Declined to use restroom. Eating/drinking minimally. Patient encouraged to challenge anxiety. 04/23 continue tx. 04/24 continue tx. increase risperidone to 6mg po qhs. Reason for continued inpatient stay Substantial Risk for: inability to function Time Spent With Patient Time: Total time managing care of this patient today ____ minutes.
[2024-04-24 20:00] VITALS: BP 95/62; PULSE 62; RESP 16; TEMP 36.3; O2SAT 99
[2024-04-24] MEDS: risperiDONE Oral Sol 1 MG/ML SOLUTION 6 MG PO (21:24)
--- NOTE | 2024-04-25 11:02 | P.PNPSI_ITS ---
Subjective Subjective Date of Service: 04/25/24 Reason For Visit: Schizophrenia Subjective Notes: Section 8 Interim History: Reviewed with Dr. Lorenzana. Continues paranoid and delusional. Refusing to go into room; pt stated, If I go in there I can be hurt with or without knowing ; when asked to elaborate, pt stated, they might hurt me, without me knowing I was hurt . Declining to use bathroom; observed to have distended abdomen, KUB ordered, pt was willing to have imaging done; awaiting results. Pt was willing to go into treatment room to use bath wipes and clean himself with RN present. Ordered Lactulose to assist with constipation; pt states he will consider taking this. Medication Compliance: Yes Side effects from medications: No Attending Groups: No Review of Systems Constitutional: Reports as per HPI Eyes: Reports as per HPI Reports as per HPI Cardiovascular: Reports as per HPI Respiratory: Reports as per HPI Gastrointestinal: Reports as per HPI Genitourinary: Reports as per HPI Musculoskeletal: Reports as per HPI Skin/Breast: Reports as per HPI Reports as per HPI Psychiatric: Reports as per HPI Endocrine: Reports as per HPI Hematologic/Lymphatic: Reports as per HPI Allergic/Immunologic: Reports as per HPI Mental Status Exam Mental Status Exam Narrative: Pt is alert and oriented; behavior is calm; dressed in hospital attire, malodorous, disheveled; mood is described as okay ; eye contact appropriate; Speech is normal rate, volume and not pressured; focused on discharge; paranoid, delusional. denies SI/HI. Insight and judgment are poor. Diagnostics Vital Signs (24Hr): Vital Signs - 24 hr 04/24/24 20:00 Temperature 97.3 F Pulse Rate 62 Respiratory Rate 16 Blood Pressure 95/62 Pulse Oximetry 99 Oxygen Delivery Method Room Air BMI result Body Mass Index 25.6 Labs 04/20/24 08:23 04/20/24 08:23 Medications Medications Current Medications Acetaminophen (Acetaminophen 325 Mg Tablet) 650 mg PO Q6H PRN PRN Reason: Headache/Pain Mild Scale (1-3) Al Hydroxide/Mg Hydroxide (Magnesium Hydrox/Alum Hydrox 30 Ml Oral.Susp) 30 ml PO Q6H PRN PRN Reason: Heartburn/Nausea Benztropine Mesylate (Benztropine Mesylate 1 Mg Tablet) 1 mg PO DAILY PRN PRN Reason: Extrapyramidal Effects Betamethasone Dipropion Augmented (Betamethasone Dip Aug 0.05% Cr 15 Gm Tube) 1 appl TOPICAL BID LENI; Protocol Last Admin: 04/25/24 10:08 Dose: Not Given Haloperidol Lactate (Haloperidol Lactate 5 Mg/Ml Vial) 5 mg IM DAILY PRN PRN Reason: Psychosis Hydroxyzine HCl (Hydroxyzine Hcl 25 Mg Tablet) 25 mg PO Q6H PRN PRN Reason: Anxiety Lactic Acid (Ammonium Lactate 12 % Cream 140 Gm Tube) 1 appl TOPICAL BID PRN; Protocol PRN Reason: Dry, scaly skin Last Admin: 04/18/24 20:53 Dose: 1 appl Lorazepam (Lorazepam 0.5 Mg Tablet) 0.5 mg PO BID LENI Last Admin: 04/25/24 10:08 Dose: Not Given Magnesium Hydroxide (Milk Of Magnesia 30 Ml Oral.Susp) 30 ml PO DAILY PRN PRN Reason: Constipation Nicotine Polacrilex (Nicotine Polacrilex 2 Mg Gum) 4 mg BUCCAL Q2H PRN PRN Reason: Nicotine Cravings Risperidone (Risperidone Oral Kami 1 Mg/Ml Solution) 6 mg PO BEDTIME LENI Last Admin: 04/24/24 21:24 Dose: 6 mg Trazodone HCl (Trazodone Hcl 50 Mg Tablet) 50 mg PO BEDTIME MRX1 PRN PRN Reason: Insomnia Allergies Allergies Allergy/AdvReac Type Severity Reaction Status Date / Time Unable to Assess Allergy Verified 03/25/24 21:15 Assessment & Plan Assessment & Plan (1) Schizophrenia: Status: Acute Code(s): F20.9 - Schizophrenia, unspecified Plan 03/26: risperidone 1/2. collateral from mother. clarify legal circumstance/rolando's order. 03/27: refusing meds, not leaving his chair. urinating in cup beneath blanket. requesting immediate discharge. continue to offer medication. clarify legal circumstance and ability to involuntarily administer medication. diamond warning provided. 03/28: Sitting in chair in milieu. Per nursing, patient urinating in cups under blankets. Patient was notified that he must go to his room to use the toilet and can not urinate in common areas. Patient was able to walk down unit hallway with no assistance. Patient is requesting to have a wheelchair d/t being terrified of falling . Patient stated, I do not have any kind of condition. I am just worried about falling . Patient reports that he has not been eating much due to fear of being poisoned however, he would not elaborate as to who he believes is poisoning him. He reports at home he has been urinating in milk cartons and defecating in trash bags and having his mother dispose of these items. Patient agreed to take 1 mg of Risperdal PO; however, expressed paranoia towards RN about being a different medication/dosage despite being shown packaging. T/W obtained information from patient's mother, Chio; Choi reports patient has not been using the toilet for the past two years due to being afraid that snakes will get him and voices telling him the same. Chio reports, pt is also afraid of walking d/t fear of hitting his head. She reports patient has never been on antipsychotics and has only taken anti-anxiety medications for 3 weeks which patient discontinued. She denies history of inpatient psychiatric hospitalizations. She reports having guardianship due to patient being unable to care for self. 03/29: Observing pacing unit hallway. Keeping to self. Covering self with blanket. Per nursing, pt slept in chair in milieu for 5 hours last night. Refused medications last night and this morning. Pt reports he does not want to sleep in a bed d/t feeling more vulnerable when laying down . Patient reports he does not want to go into the bathroom because he is paranoid that something might happen in there or someone might be waiting for me in there . Pt's 3 day up 03/30/24; he is requesting to be discharged home. 03/30: Observed standing at nurses station throughout shift; not taking redirection from staff to please step away for pt confidentiality. Argumentative. 3 day up today; filed on; pt notified. Pt stated, you can't keep me here. I'm going to jose you and make your head spin 3 times! Your documents are not real! Refused Zyprexa. Per nursing, pt urinated in carton in unit hallway;continues to refuse utilizing bathroom. Per nursing, pt did not eat anything today. 03/31: Pacing in front of nurses station. disheveled, malodorous; encouraged to shower, however pt declined despite being offered shower chair and staff member to wait outside shower room if assistance is needed. Per nursing, pt urinated in cup and sensory room floor last evening. Pt continues to report paranoia regarding using bathroom; pt stated, I'm worried someone will be in the bathroom waiting for me because of who I am . When asked why he believes someone would want to hurt him; pt stated, I can't discuss that . denies SI/HI/VH/AH. He reports not eating d/t concerns that he may be poisoned by someone ; observed drinking water from water bottle. Pt offered Zyprexa PO per court ordered treatment plan; per nursing, pt initially refused then agreed to take. 04/01: Patient continues to stand or pace in front of nurses station. disheveled, malodorous; per nursing, pt urinated in trash in [facility] last evening. T/W spoke to patient regarding using restroom on unit; pt continues to report concern that someone can try to kill me because of who I am and who my family is ; when asked why someone would hurt him. Pt stated, because we are well known in [place] and they may hurt me because of it ; pt unable to specify who they are. denies AH/VH. Pt was offered for staff member to examine restroom and stand outside to assure no one is waiting for him; however pt continues to decline. Patient stated, I feel like you guys are playing a psychotic game with me or that they are doing this for their entertainment . 04/02: Patient continues to present similar to days prior. He continues to report paranoia regarding using restroom, shower and eating. Pt stated, I urinated in the trash early in the morning ; he continues to state he will consider using restroom. Pt reports taking bites of breakfast this morning. denies any side effects from Zyprexa other than feeling tired; pt stated, I am feeling a bit calmer . Per nursing, pt slept in chair in [facility] for 7 hours last night. Will continue to build rapport. 04/03: Patient continues to report paranoia regarding using restroom, shower and eating. Pt was offered single room d/t continuous urinating in [facility]; pt declined. Pt stated, I don't think a single room would help. I'm still having the same thoughts . Pt reports he has increased his fluid intake with water, juice and milk; however he continues to report only take a few bites of food. 04/04: Discussed medications increases with pt which he refuses at this time. Focused on discharge, and where his belongings are being stored at this time. 04/05: Patient declined to meet with T/W in unit office; pt stated, I don't feel comfortable going into the office because I think someone would hurt me ; pt reassured no one would hurt him, however, he continued to decline. Met with pt in unit hallway. Patient reports he did not urinate yesterday; he was educated regarding medical complications that can occur with decreased intake of fluids and food. Pt stated, I know but it's not like I'm dying . Pt refused labs. Discussed various solutions of pt feeling safe to use restroom or shower. pt stated, I'm still worried someone is going to hurt me. I'm not sure who, but it's because I am along the lines of royalty and it's putting me in harms way if I use the bathroom, shower or eat . Pt reporting zyprexa is making him too tired ; plan to DC. start risperidal 1mg PO daily with plan to switch to PLAZA; discussed with pt. T/W spoke to patient's mother, Chio, who reports has not left the house in 2 years and has not bathed or used the restroom in a year. She expressed concern over his wellbeing of not drinking or eating. She plans on calling patient to encourage him increase fluid intake. 04/07: Pt continues similar to days prior. Pt reports he did not urinate yesterday. Refused labs again. Hearing was held today; Pt was commited. T/W informed pt of plan to increase risperidal. Pt to receive additional risperidal 1mg PO bedtime dose to night. Starting tomorrow, Increase: Risperidal 2mg PO bedtime. 04/08: Staying in common area, however, keeping to self. per nursing, pt urinated in multiple cups last evening in common area and declined to use restroom. Pt reports feeling frustrated about not being discharged ; T/W discussed plan with medications again. Pt requesting to be discharged home today; asking multiple staff. Pt continues to report paranoia regarding using toilet, shower, eating/drinking. Encouraged to allow labs. 04/10: No changes. Encourage ongoing med adherence especially for Risperdal. Also encourage elevating legs as per hospitalist evaluation on 04/06/2024. Ordering an extra large compression stockings. 04/11: Met with pt in unit office. Continues to stay in common areas. paranoid. Pt discussed paranoia regarding eating; pt stated, how do you know someone isn't trying to poison me? People in this hospital. Per nursing, ate 10% of one meal yesterday and 25% of one meal today, has not eaten anything otherwise. Patient continues to refuse labs; shower (pt reports he has not bathed himself since admission and refusing to change clothes). Declining to use bathroom. perseverating on discharge to go back home where I can continue doing these things and be more comfortable . Continues similar to days prior; ? possible cheeking, will switch to risperidal liquid. Increase dose to Risperidal 3mg PO bedtime. Wound consult ordered for bilateral legs 04/12: Met with pt in unit office. Continues to stay in common areas; declining to go into assigned room for any reason. He continues paranoid, anxious, fearful. Pt argumentative and requesting discharge since he has been able to meet with T/W in the unit office for the past 2 days. Discussed that pt does not allow for the door to be closed, continues with paranoia stating my safety is a concern if the door is closed . Declining bathroom and shower. Discussed change of medication to liquid d/t possible cheeking. 04/13: Pt continues paranoid, anxious, fearful. T/W and psychiatric social worker supervisor, Sabi, encouraged pt to walk into his room; lights were turned on to show no one was in the room and it was safe; however, pt continues to make paranoid statements of someone waiting to hurt him. Pt reports he did not urinate yesterday; discussed the importance of drinking fluids and eating meals. Per nursing, pt ate 5% of breakfast yesterday and declined lunch and dinner. Continue current tx plan. 04/14: Pt continues similar to days prior. Refusing to cross threshold into any room other than side office. Continues concerned that someone may hurt him if he goes into a room even if staff are with him. Per nursing, pt has not eaten or drank fluids today. He did urinate in trash can in the mileu and continues to refuse using restroom; despite having access to multiple bathrooms. Continue current tx plan. 04/15: T/W and RN attempting to reassure patient of his safety to be able to cross threshold into his room. Continues to believe someone may be hiding in the room to hurt him. Argumentative, attempting to change topic when asked questions about challenging his anxiety and paranoia. Per nursing, pt continues to have poor intake. Pt reports he did not urinate yesterday 04/17: No changes 04/18: Met with Dr. Lorenzana present. Pt continues to decline to go into bedroom or restroom; was willing to meet in side office with door open. He continues to discuss his anxiety and paranoia regarding being attacked by someone or snakes . Pt states he does not believe to have a mental illness ; requesting to be discharged home. Pt re-educated on goal of treatment. 04/19: Pt continues similar to days prior. Patient was given single room however pt continues to decline to enter room despite not having a room mate. He reports not urinating or having a bowel movement yesterday or today. Risperidal increased 4mg PO bedtime; pt aware. Labs ordered for tomorrow for monitoring of medical status while being treated with antipsychotics medications; informed consent obtained from guardian and patient is aware that informed consent was obtained. 04/20: pt continues to decline to enter his single room. Chair was placed between hallway and bedroom threshold; pt stated, I'm not going in there because I'm worried I might if I sit down . Continues with paranoid delusions. denies any side effects from increase in risperidal. encouraged to take Ativan to help with anxiety. Declined to go into his room to receive leg treatment. Declined to use restroom. 04/21: Continues with paranoid delusions; pt stated, I won't go in there because someone wants to kill me. I don't know who exactly. I know this from the narrative I hear and the symbolism I see on TV and commercial trucks . Declined to go into his room to receive leg treatment. Declined to use restroom. Eating/drinking minimally. Spoke with patient's mother and guardian, Chio, via phone. Reviewed current treatment plan and labs. 04/22: Patient continues similar to days prior. Continues with paranoid delusions; Declined to go into his room to receive leg treatment. Declined to use restroom. Eating/drinking minimally. Patient encouraged to challenge anxiety. 04/23 continue tx. 04/24 continue tx. increase risperidone to 6mg po qhs. 04/25: Continues paranoid and delusional. Refusing to go into room; pt stated, If I go in there I can be hurt with or without knowing ; when asked to elaborate, pt stated, they might hurt me, without me knowing I was hurt . Declining to use bathroom; observed to have distended abdomen, KUB ordered, pt was willing to have imaging done; awaiting results. Pt was willing to go into treatment room to use bath wipes and clean himself with RN present. Ordered Lactulose to assist with constipation; pt states he will consider taking this. Patient educated on: diagnosis, medication risk/benefits and medical condition Reason for continued inpatient stay Substantial Risk for: med/psych decompensation Time Spent With Patient Time: Total time managing care of this patient today _20___ minutes.
[2024-04-25] MEDS: Lactulose 20 GM/30 ML SOLUTION 40 GM PO (18:54)
[2024-04-25 20:00] VITALS: BP 124/73; PULSE 88; RESP 16; TEMP 36.4; O2SAT 99
[2024-04-25] MEDS: risperiDONE Oral Sol 1 MG/ML SOLUTION 6 MG PO (21:03)
--- NOTE | 2024-04-26 09:01 | P.PNPSI_ITS ---
Subjective Subjective Date of Service: 04/26/24 Reason For Visit: Schizophrenia Subjective Notes: Section 8 Interim History: Reviewed with Dr. Lorenzana. Continues paranoid and delusional. Refusing to go into room, bathroom or use commode in room; urinated in unit hallway. Refused Lactulose this morning despite encouragement. Medication Compliance: Yes Side effects from medications: No Attending Groups: No Review of Systems Constitutional: Reports as per HPI Eyes: Reports as per HPI Reports as per HPI Cardiovascular: Reports as per HPI Respiratory: Reports as per HPI Gastrointestinal: Reports as per HPI Genitourinary: Reports as per HPI Musculoskeletal: Reports as per HPI Skin/Breast: Reports as per HPI Reports as per HPI Psychiatric: Reports as per HPI Endocrine: Reports as per HPI Hematologic/Lymphatic: Reports as per HPI Allergic/Immunologic: Reports as per HPI Mental Status Exam Mental Status Exam Narrative: Pt is alert and oriented; behavior is calm; dressed in hospital attire, malodorous, disheveled; mood is described as okay ; eye contact appropriate; Speech is normal rate, volume and not pressured; focused on discharge; paranoid, delusional. denies SI/HI. Insight and judgment are poor. Diagnostics Vital Signs (24Hr): Vital Signs - 24 hr 04/25/24 20:00 Temperature 97.6 F Pulse Rate 88 Respiratory Rate 16 Blood Pressure 124/73 Pulse Oximetry 99 Oxygen Delivery Method Room Air BMI result Body Mass Index 25.6 Labs 04/20/24 08:23 04/20/24 08:23 Imaging Radiology Impressions: ITS Impressions KUB X-Ray 04/25/24 14:00 IMPRESSION: Large stool burden overall. Electronically signed by: Corin Escoto DO 04/25/2024 07:31 PM EST Medications Medications Current Medications Acetaminophen (Acetaminophen 325 Mg Tablet) 650 mg PO Q6H PRN PRN Reason: Headache/Pain Mild Scale (1-3) Al Hydroxide/Mg Hydroxide (Magnesium Hydrox/Alum Hydrox 30 Ml Oral.Susp) 30 ml PO Q6H PRN PRN Reason: Heartburn/Nausea Benztropine Mesylate (Benztropine Mesylate 1 Mg Tablet) 1 mg PO DAILY PRN PRN Reason: Extrapyramidal Effects Betamethasone Dipropion Augmented (Betamethasone Dip Aug 0.05% Cr 15 Gm Tube) 1 appl TOPICAL BID LENI; Protocol Last Admin: 04/26/24 08:33 Dose: Not Given Haloperidol Lactate (Haloperidol Lactate 5 Mg/Ml Vial) 5 mg IM DAILY PRN PRN Reason: Psychosis Hydroxyzine HCl (Hydroxyzine Hcl 25 Mg Tablet) 25 mg PO Q6H PRN PRN Reason: Anxiety Lactic Acid (Ammonium Lactate 12 % Cream 140 Gm Tube) 1 appl TOPICAL BID PRN; Protocol PRN Reason: Dry, scaly skin Last Admin: 04/18/24 20:53 Dose: 1 appl Lactulose (Lactulose 20 Gm/30 Ml Solution) 40 gm PO DAILY LENI Last Admin: 04/26/24 08:33 Dose: Not Given Lorazepam (Lorazepam 0.5 Mg Tablet) 0.5 mg PO BID [facility] Last Admin: 04/26/24 08:33 Dose: Not Given Magnesium Hydroxide (Milk Of Magnesia 30 Ml Oral.Susp) 30 ml PO DAILY PRN PRN Reason: Constipation Nicotine Polacrilex (Nicotine Polacrilex 2 Mg Gum) 4 mg BUCCAL Q2H PRN PRN Reason: Nicotine Cravings Risperidone (Risperidone Oral Kami 1 Mg/Ml Solution) 6 mg PO BEDTIME [facility] Last Admin: 04/25/24 21:03 Dose: 6 mg Trazodone HCl (Trazodone Hcl 50 Mg Tablet) 50 mg PO BEDTIME MRX1 PRN PRN Reason: Insomnia Allergies Allergies Allergy/AdvReac Type Severity Reaction Status Date / Time Unable to Assess Allergy Verified 03/25/24 21:15 Assessment & Plan Assessment & Plan (1) Schizophrenia: Status: Acute Code(s): F20.9 - Schizophrenia, unspecified Plan 03/26: risperidone 1/2. collateral from mother. clarify legal circumstance/rolando's order. 03/27: refusing meds, not leaving his chair. urinating in cup beneath blanket. requesting immediate discharge. continue to offer medication. clarify legal circumstance and ability to involuntarily administer medication. diamond warning provided. 03/28: Sitting in chair in milieu. Per nursing, patient urinating in cups under blankets. Patient was notified that he must go to his room to use the toilet and can not urinate in common areas. Patient was able to walk down unit hallway with no assistance. Patient is requesting to have a wheelchair d/t being terrified of falling . Patient stated, I do not have any kind of condition. I am just worried about falling . Patient reports that he has not been eating much due to fear of being poisoned however, he would not elaborate as to who he believes is poisoning him. He reports at home he has been urinating in milk cartons and defecating in trash bags and having his mother dispose of these items. Patient agreed to take 1 mg of Risperdal PO; however, expressed paranoia towards RN about being a different medication/dosage despite being shown packaging. T/W obtained information from patient's mother, Chio; Chio reports patient has not been using the toilet for the past two years due to being afraid that snakes will get him and voices telling him the same. Chio reports, pt is also afraid of walking d/t fear of hitting his head. She reports patient has never been on antipsychotics and has only taken anti-anxiety medications for 3 weeks which patient discontinued. She denies history of inpatient psychiatric hospitalizations. She reports having guardianship due to patient being unable to care for self. 03/29: Observing pacing unit hallway. Keeping to self. Covering self with blanket. Per nursing, pt slept in chair in milieu for 5 hours last night. Refused medications last night and this morning. Pt reports he does not want to sleep in a bed d/t feeling more vulnerable when laying down . Patient reports he does not want to go into the bathroom because he is paranoid that something might happen in there or someone might be waiting for me in there . Pt's 3 day up 03/30/24; he is requesting to be discharged home. 03/30: Observed standing at nurses station throughout shift; not taking redirection from staff to please step away for pt confidentiality. Argumentative. 3 day up today; filed on; pt notified. Pt stated, you can't keep me here. I'm going to jose you and make your head spin 3 times! Your documents are not real! Refused Zyprexa. Per nursing, pt urinated in carton in unit hallway;continues to refuse utilizing bathroom. Per nursing, pt did not eat anything today. 03/31: Pacing in front of nurses station. disheveled, malodorous; encouraged to shower, however pt declined despite being offered shower chair and staff member to wait outside shower room if assistance is needed. Per nursing, pt urinated in cup and sensory room floor last evening. Pt continues to report paranoia regarding using bathroom; pt stated, I'm worried someone will be in the bathroom waiting for me because of who I am . When asked why he believes someone would want to hurt him; pt stated, I can't discuss that . denies SI/HI/VH/AH. He reports not eating d/t concerns that he may be poisoned by someone ; observed drinking water from water bottle. Pt offered Zyprexa PO per court ordered treatment plan; per nursing, pt initially refused then agreed to take. 04/01: Patient continues to stand or pace in front of nurses station. disheveled, malodorous; per nursing, pt urinated in trash in mil last evening. T/W spoke to patient regarding using restroom on unit; pt continues to report concern that someone can try to kill me because of who I am and who my family is ; when asked why someone would hurt him. Pt stated, because we are well known in [place] and they may hurt me because of it ; pt unable to specify who they are. denies AH/VH. Pt was offered for staff member to examine restroom and stand outside to assure no one is waiting for him; however pt continues to decline. Patient stated, I feel like you guys are playing a psychotic game with me or that they are doing this for their entertainment . 04/02: Patient continues to present similar to days prior. He continues to report paranoia regarding using restroom, shower and eating. Pt stated, I urinated in the trash early in the morning ; he continues to state he will consider using restroom. Pt reports taking bites of breakfast this morning. denies any side effects from Zyprexa other than feeling tired; pt stated, I am feeling a bit calmer . Per nursing, pt slept in chair in [facility] for 7 hours last night. Will continue to build rapport. 04/03: Patient continues to report paranoia regarding using restroom, shower and eating. Pt was offered single room d/t continuous urinating in [facility]; pt declined. Pt stated, I don't think a single room would help. I'm still having the same thoughts . Pt reports he has increased his fluid intake with water, juice and milk; however he continues to report only take a few bites of food. 04/04: Discussed medications increases with pt which he refuses at this time. Focused on discharge, and where his belongings are being stored at this time. 04/05: Patient declined to meet with T/W in unit office; pt stated, I don't feel comfortable going into the office because I think someone would hurt me ; pt reassured no one would hurt him, however, he continued to decline. Met with pt in unit hallway. Patient reports he did not urinate yesterday; he was educated regarding medical complications that can occur with decreased intake of fluids and food. Pt stated, I know but it's not like I'm dying . Pt refused labs. Discussed various solutions of pt feeling safe to use restroom or shower. pt stated, I'm still worried someone is going to hurt me. I'm not sure who, but it's because I am along the lines of royalty and it's putting me in harms way if I use the bathroom, shower or eat . Pt reporting zyprexa is making him too tired ; plan to DC. start risperidal 1mg PO daily with plan to switch to PLAZA; discussed with pt. T/W spoke to patient's mother, Chio, who reports has not left the house in 2 years and has not bathed or used the restroom in a year. She expressed concern over his wellbeing of not drinking or eating. She plans on calling patient to encourage him increase fluid intake. 04/07: Pt continues similar to days prior. Pt reports he did not urinate yesterday. Refused labs again. Hearing was held today; Pt was commited. T/W informed pt of plan to increase risperidal. Pt to receive additional risperidal 1mg PO bedtime dose to night. Starting tomorrow, Increase: Risperidal 2mg PO bedtime. 04/08: Staying in common area, however, keeping to self. per nursing, pt urinated in multiple cups last evening in common area and declined to use restroom. Pt reports feeling frustrated about not being discharged ; T/W discussed plan with medications again. Pt requesting to be discharged home today; asking multiple staff. Pt continues to report paranoia regarding using toilet, shower, eating/drinking. Encouraged to allow labs. 04/10: No changes. Encourage ongoing med adherence especially for Risperdal. Also encourage elevating legs as per hospitalist evaluation on 04/06/2024. Ordering an extra large compression stockings. 04/11: Met with pt in unit office. Continues to stay in common areas. paranoid. Pt discussed paranoia regarding eating; pt stated, how do you know someone isn't trying to poison me? People in this hospital. Per nursing, ate 10% of one meal yesterday and 25% of one meal today, has not eaten anything otherwise. Patient continues to refuse labs; shower (pt reports he has not bathed himself since admission and refusing to change clothes). Declining to use bathroom. perseverating on discharge to go back home where I can continue doing these things and be more comfortable . Continues similar to days prior; ? possible cheeking, will switch to risperidal liquid. Increase dose to Risperidal 3mg PO bedtime. Wound consult ordered for bilateral legs 04/12: Met with pt in unit office. Continues to stay in common areas; declining to go into assigned room for any reason. He continues paranoid, anxious, fearful. Pt argumentative and requesting discharge since he has been able to meet with T/W in the unit office for the past 2 days. Discussed that pt does not allow for the door to be closed, continues with paranoia stating my safety is a concern if the door is closed . Declining bathroom and shower. Discussed change of medication to liquid d/t possible cheeking. 04/13: Pt continues paranoid, anxious, fearful. T/W and social sciences professor, Sabi, encouraged pt to walk into his room; lights were turned on to show no one was in the room and it was safe; however, pt continues to make paranoid statements of someone waiting to hurt him. Pt reports he did not urinate yesterday; discussed the importance of drinking fluids and eating meals. Per nursing, pt ate 5% of breakfast yesterday and declined lunch and dinner. Continue current tx plan. 04/14: Pt continues similar to days prior. Refusing to cross threshold into any room other than side office. Continues concerned that someone may hurt him if he goes into a room even if staff are with him. Per nursing, pt has not eaten or drank fluids today. He did urinate in trash can in the mileu and continues to refuse using restroom; despite having access to multiple bathrooms. Continue current tx plan. 04/15: T/W and RN attempting to reassure patient of his safety to be able to cross threshold into his room. Continues to believe someone may be hiding in the room to hurt him. Argumentative, attempting to change topic when asked questions about challenging his anxiety and paranoia. Per nursing, pt continues to have poor intake. Pt reports he did not urinate yesterday 04/17: No changes 04/18: Met with Dr. Lorenzana present. Pt continues to decline to go into bedroom or restroom; was willing to meet in side office with door open. He continues to discuss his anxiety and paranoia regarding being attacked by someone or snakes . Pt states he does not believe to have a mental illness ; requesting to be discharged home. Pt re-educated on goal of treatment. 04/19: Pt continues similar to days prior. Patient was given single room however pt continues to decline to enter room despite not having a room mate. He reports not urinating or having a bowel movement yesterday or today. Risperidal increased 4mg PO bedtime; pt aware. Labs ordered for tomorrow for monitoring of medical status while being treated with antipsychotics medications; informed consent obtained from guardian and patient is aware that informed consent was obtained. 04/20: pt continues to decline to enter his single room. Chair was placed between hallway and bedroom threshold; pt stated, I'm not going in there because I'm worried I might if I sit down . Continues with paranoid delusions. denies any side effects from increase in risperidal. encouraged to take Ativan to help with anxiety. Declined to go into his room to receive leg treatment. Declined to use restroom. 04/21: Continues with paranoid delusions; pt stated, I won't go in there because someone wants to kill me. I don't know who exactly. I know this from the narrative I hear and the symbolism I see on TV and commercial trucks . Declined to go into his room to receive leg treatment. Declined to use restroom. Eating/drinking minimally. Spoke with patient's mother and guardian, Chio, via phone. Reviewed current treatment plan and labs. 04/22: Patient continues similar to days prior. Continues with paranoid delusions; Declined to go into his room to receive leg treatment. Declined to use restroom. Eating/drinking minimally. Patient encouraged to challenge anxiety. 04/23 continue tx. 04/24 continue tx. increase risperidone to 6mg po qhs. 04/25: Continues paranoid and delusional. Refusing to go into room; pt stated, If I go in there I can be hurt with or without knowing ; when asked to elaborate, pt stated, they might hurt me, without me knowing I was hurt . Declining to use bathroom; observed to have distended abdomen, KUB ordered, pt was willing to have imaging done; awaiting results. Pt was willing to go into treatment room to use bath wipes and clean himself with RN present. Ordered Lactulose to assist with constipation; pt states he will consider taking this. 04/26: Continues paranoid and delusional. Refusing to go into room, bathroom or use commode in room; urinated in unit hallway. Refused Lactulose this morning despite encouragement. Continue current tx plan. Patient educated on: diagnosis and medication risk/benefits Reason for continued inpatient stay Substantial Risk for: med/psych decompensation Time Spent With Patient Time: Total time managing care of this patient today _20___ minutes.
--- NOTE | 2024-04-26 10:51 | PC.NURSE ---
Pt urinated in hallway of [facility]. When asked why he did that, he stated that he had to go too bad and couldn't wait for staff . Staff reminded pt that he needs to use the toilet.
[2024-04-26 20:00] VITALS: BP 95/60; PULSE 72; RESP 16; TEMP 36.9; O2SAT 99
[2024-04-26] MEDS: risperiDONE Oral Sol 1 MG/ML SOLUTION 6 MG PO (22:06)
--- NOTE | 2024-04-27 10:47 | P.PNPSI_ITS ---
Subjective Subjective Date of Service: 04/27/24 Reason For Visit: Schizophrenia Subjective Notes: Section 8 Interim History: Patient was seen and discussed in rounds today. Records and plans were reviewed. He continues to be flat and subdued. He had been peeing in the hallways but last evening he did use his own bathroom!. Refused Ativan p.r.n.. He still has had no bowel movements. Continues to be paranoid and delusional. Sleeping adequately. Still has had no BMs Review of Systems Review of Systems Yes all other systems are reviewed and are negative Mental Status Exam Mental Status Exam Narrative: In today's visit he is alert, pleasant and minimally interactive with an his means. Normal speech. Moderate eye contact. Affect is constricted. No acute signs of psychosis but paranoid ideations and delusions persisting and reported. No active SI. Able to move all limbs. No abnormalities of gait. No gross cognitive deficits except for slow thought processes. Judgment is marginal Diagnostics Vital Signs (24Hr): Vital Signs - 24 hr 04/26/24 20:00 Temperature 98.4 F Pulse Rate 72 Respiratory Rate 16 Blood Pressure 95/60 Pulse Oximetry 99 Oxygen Delivery Method Room Air BMI result Body Mass Index 25.6 Labs 04/20/24 08:23 04/20/24 08:23 Imaging Radiology Impressions: ITS Impressions KUB X-Ray 04/25/24 14:00 IMPRESSION: Large stool burden overall. Electronically signed by: Corin Escoto DO 04/25/2024 07:31 PM EST Medications Medications Current Medications Acetaminophen (Acetaminophen 325 Mg Tablet) 650 mg PO Q6H PRN PRN Reason: Headache/Pain Mild Scale (1-3) Al Hydroxide/Mg Hydroxide (Magnesium Hydrox/Alum Hydrox 30 Ml Oral.Susp) 30 ml PO Q6H PRN PRN Reason: Heartburn/Nausea Benztropine Mesylate (Benztropine Mesylate 1 Mg Tablet) 1 mg PO DAILY PRN PRN Reason: Extrapyramidal Effects Betamethasone Dipropion Augmented (Betamethasone Dip Aug 0.05% Cr 15 Gm Tube) 1 appl TOPICAL BID LENI; Protocol Last Admin: 04/27/24 09:50 Dose: Not Given Haloperidol Lactate (Haloperidol Lactate 5 Mg/Ml Vial) 5 mg IM DAILY PRN PRN Reason: Psychosis Hydroxyzine HCl (Hydroxyzine Hcl 25 Mg Tablet) 25 mg PO Q6H PRN PRN Reason: Anxiety Lactic Acid (Ammonium Lactate 12 % Cream 140 Gm Tube) 1 appl TOPICAL BID PRN; Protocol PRN Reason: Dry, scaly skin Last Admin: 04/18/24 20:53 Dose: 1 appl Lactulose (Lactulose 20 Gm/30 Ml Solution) 40 gm PO DAILY REPLACED BY [facility] Last Admin: 04/27/24 09:50 Dose: Not Given Lorazepam (Lorazepam 0.5 Mg Tablet) 0.5 mg PO BID REPLACED BY [facility] Last Admin: 04/27/24 09:50 Dose: Not Given Magnesium Hydroxide (Milk Of Magnesia 30 Ml Oral.Susp) 30 ml PO DAILY PRN PRN Reason: Constipation Nicotine Polacrilex (Nicotine Polacrilex 2 Mg Gum) 4 mg BUCCAL Q2H PRN PRN Reason: Nicotine Cravings Risperidone (Risperidone Oral Kami 1 Mg/Ml Solution) 6 mg PO BEDTIME REPLACED BY [facility] Last Admin: 04/26/24 22:06 Dose: 6 mg Trazodone HCl (Trazodone Hcl 50 Mg Tablet) 50 mg PO BEDTIME MRX1 PRN PRN Reason: Insomnia Allergies Allergies Allergy/AdvReac Type Severity Reaction Status Date / Time Unable to Assess Allergy Verified 03/25/24 21:15 Assessment & Plan Assessment & Plan (1) Schizophrenia: Status: Acute Code(s): F20.9 - Schizophrenia, unspecified Plan 03/26: risperidone /. collateral from mother. clarify legal circumstance/rolando's order. 03/27: refusing meds, not leaving his chair. urinating in cup beneath blanket. requesting immediate discharge. continue to offer medication. clarify legal circumstance and ability to involuntarily administer medication. diamond warning provided. 03/28: Sitting in chair in milieu. Per nursing, patient urinating in cups under blankets. Patient was notified that he must go to his room to use the toilet and can not urinate in common areas. Patient was able to walk down unit hallway with no assistance. Patient is requesting to have a wheelchair d/t being terrified of falling . Patient stated, I do not have any kind of condition. I am just worried about falling . Patient reports that he has not been eating much due to fear of being poisoned however, he would not elaborate as to who he believes is poisoning him. He reports at home he has been urinating in milk cartons and defecating in trash bags and having his mother dispose of these items. Patient agreed to take 1 mg of Risperdal PO; however, expressed paranoia towards RN about being a different medication/dosage despite being shown packaging. T/W obtained information from patient's mother, Chio; Chio reports patient has not been using the toilet for the past two years due to being afraid that snakes will get him and voices telling him the same. Chio reports, pt is also afraid of walking d/t fear of hitting his head. She reports patient has never been on antipsychotics and has only taken anti-anxiety medications for 3 weeks which patient discontinued. She denies history of inpatient psychiatric hospitalizations. She reports having guardianship due to patient being unable to care for self. 03/29: Observing pacing unit hallway. Keeping to self. Covering self with blanket. Per nursing, pt slept in chair in milieu for 5 hours last night. Refused medications last night and this morning. Pt reports he does not want to sleep in a bed d/t feeling more vulnerable when laying down . Patient reports he does not want to go into the bathroom because he is paranoid that something might happen in there or someone might be waiting for me in there . Pt's 3 day up 03/30/24; he is requesting to be discharged home. 03/30: Observed standing at nurses station throughout shift; not taking redirection from staff to please step away for pt confidentiality. Argumentative. 3 day up today; filed on; pt notified. Pt stated, you can't keep me here. I'm going to jose you and make your head spin 3 times! Your documents are not real! Refused Zyprexa. Per nursing, pt urinated in carton in unit hallway;continues to refuse utilizing bathroom. Per nursing, pt did not eat anything today. 03/31: Pacing in front of nurses station. disheveled, malodorous; encouraged to shower, however pt declined despite being offered shower chair and staff member to wait outside shower room if assistance is needed. Per nursing, pt urinated in cup and sensory room floor last evening. Pt continues to report paranoia regarding using bathroom; pt stated, I'm worried someone will be in the bathroom waiting for me because of who I am . When asked why he believes someone would want to hurt him; pt stated, I can't discuss that . denies SI/HI/VH/AH. He reports not eating d/t concerns that he may be poisoned by someone ; observed drinking water from water bottle. Pt offered Zyprexa PO per court ordered treatment plan; per nursing, pt initially refused then agreed to take. 04/01: Patient continues to stand or pace in front of nurses station. disheveled, malodorous; per nursing, pt urinated in trash in [facility] last evening. T/W spoke to patient regarding using restroom on unit; pt continues to report concern that someone can try to kill me because of who I am and who my family is ; when asked why someone would hurt him. Pt stated, because we are well known in [place] and they may hurt me because of it ; pt unable to specify who they are. denies AH/VH. Pt was offered for staff member to examine restroom and stand outside to assure no one is waiting for him; however pt continues to decline. Patient stated, I feel like you guys are playing a psychotic game with me or that they are doing this for their entertainment . 04/02: Patient continues to present similar to days prior. He continues to report paranoia regarding using restroom, shower and eating. Pt stated, I urinated in the trash early in the morning ; he continues to state he will consider using restroom. Pt reports taking bites of breakfast this morning. denies any side effects from Zyprexa other than feeling tired; pt stated, I am feeling a bit calmer . Per nursing, pt slept in chair in [facility] for 7 hours last night. Will continue to build rapport. 04/03: Patient continues to report paranoia regarding using restroom, shower and eating. Pt was offered single room d/t continuous urinating in [facility]; pt declined. Pt stated, I don't think a single room would help. I'm still having the same thoughts . Pt reports he has increased his fluid intake with water, juice and milk; however he continues to report only take a few bites of food. 04/04: Discussed medications increases with pt which he refuses at this time. Focused on discharge, and where his belongings are being stored at this time. 04/05: Patient declined to meet with T/W in unit office; pt stated, I don't feel comfortable going into the office because I think someone would hurt me ; pt reassured no one would hurt him, however, he continued to decline. Met with pt in unit hallway. Patient reports he did not urinate yesterday; he was educated regarding medical complications that can occur with decreased intake of fluids and food. Pt stated, I know but it's not like I'm dying . Pt refused labs. Discussed various solutions of pt feeling safe to use restroom or shower. pt stated, I'm still worried someone is going to hurt me. I'm not sure who, but it's because I am along the lines of royalty and it's putting me in harms way if I use the bathroom, shower or eat . Pt reporting zyprexa is making him too tired ; plan to DC. start risperidal 1mg PO daily with plan to switch to PLAZA; discussed with pt. T/W spoke to patient's mother, Chio, who reports has not left the house in 2 years and has not bathed or used the restroom in a year. She expressed concern over his wellbeing of not drinking or eating. She plans on calling patient to encourage him increase fluid intake. 04/07: Pt continues similar to days prior. Pt reports he did not urinate yesterday. Refused labs again. Hearing was held today; Pt was commited. T/W informed pt of plan to increase risperidal. Pt to receive additional risperidal 1mg PO bedtime dose to night. Starting tomorrow, Increase: Risperidal 2mg PO bedtime. 04/08: Staying in common area, however, keeping to self. per nursing, pt urinated in multiple cups last evening in common area and declined to use restroom. Pt reports feeling frustrated about not being discharged ; T/W discussed plan with medications again. Pt requesting to be discharged home today; asking multiple staff. Pt continues to report paranoia regarding using toilet, shower, eating/drinking. Encouraged to allow labs. 04/10: No changes. Encourage ongoing med adherence especially for Risperdal. Also encourage elevating legs as per hospitalist evaluation on 04/06/2024. Ordering an extra large compression stockings. 04/11: Met with pt in unit office. Continues to stay in common areas. paranoid. Pt discussed paranoia regarding eating; pt stated, how do you know someone isn't trying to poison me? People in this hospital. Per nursing, ate 10% of one meal yesterday and 25% of one meal today, has not eaten anything otherwise. Patient continues to refuse labs; shower (pt reports he has not bathed himself since admission and refusing to change clothes). Declining to use bathroom. perseverating on discharge to go back home where I can continue doing these things and be more comfortable . Continues similar to days prior; ? possible cheeking, will switch to risperidal liquid. Increase dose to Risperidal 3mg PO bedtime. Wound consult ordered for bilateral legs 04/12: Met with pt in unit office. Continues to stay in common areas; declining to go into assigned room for any reason. He continues paranoid, anxious, fearful. Pt argumentative and requesting discharge since he has been able to meet with T/W in the unit office for the past 2 days. Discussed that pt does not allow for the door to be closed, continues with paranoia stating my safety is a concern if the door is closed . Declining bathroom and shower. Discussed change of medication to liquid d/t possible cheeking. 04/13: Pt continues paranoid, anxious, fearful. T/W and social economist, Sabi, encouraged pt to walk into his room; lights were turned on to show no one was in the room and it was safe; however, pt continues to make paranoid statements of someone waiting to hurt him. Pt reports he did not urinate yesterday; discussed the importance of drinking fluids and eating meals. Per nursing, pt ate 5% of breakfast yesterday and declined lunch and dinner. Continue current tx plan. 04/14: Pt continues similar to days prior. Refusing to cross threshold into any room other than side office. Continues concerned that someone may hurt him if he goes into a room even if staff are with him. Per nursing, pt has not eaten or drank fluids today. [facility] and continues to refuse using restroom; despite having access to multiple bathrooms. Continue current tx plan. 04/15: T/W and RN attempting to reassure patient of his safety to be able to cross threshold into his room. Continues to believe someone may be hiding in the room to hurt him. Argumentative, attempting to change topic when asked questions about challenging his anxiety and paranoia. Per nursing, pt continues to have poor intake. Pt reports he did not urinate yesterday 04/17: No changes 04/18: Met with Dr. Lorenzana present. Pt continues to decline to go into bedroom or restroom; was willing to meet in side office with door open. He continues to discuss his anxiety and paranoia regarding being attacked by someone or snakes . Pt states he does not believe to have a mental illness ; requesting to be discharged home. Pt re-educated on goal of treatment. 04/19: Pt continues similar to days prior. Patient was given single room however pt continues to decline to enter room despite not having a room mate. He reports not urinating or having a bowel movement yesterday or today. Risperidal increased 4mg PO bedtime; pt aware. Labs ordered for tomorrow for monitoring of medical status while being treated with antipsychotics medications; informed consent obtained from guardian and patient is aware that informed consent was obtained. 04/20: pt continues to decline to enter his single room. Chair was placed between hallway and bedroom threshold; pt stated, I'm not going in there because I'm worried I might if I sit down . Continues with paranoid delusions. denies any side effects from increase in risperidal. encouraged to take Ativan to help with anxiety. Declined to go into his room to receive leg treatment. Declined to use restroom. 04/21: Continues with paranoid delusions; pt stated, I won't go in there because someone wants to kill me. I don't know who exactly. I know this from the narrative I hear and the symbolism I see on TV and commercial trucks . Declined to go into his room to receive leg treatment. Declined to use restroom. Eating/drinking minimally. Spoke with patient's mother and guardian, Chio, via phone. Reviewed current treatment plan and labs. 04/22: Patient continues similar to days prior. Continues with paranoid delusions; Declined to go into his room to receive leg treatment. Declined to use restroom. Eating/drinking minimally. Patient encouraged to challenge anxiety. 04/23 continue tx. 04/24 continue tx. increase risperidone to 6mg po qhs. 04/25: Continues paranoid and delusional. Refusing to go into room; pt stated, If I go in there I can be hurt with or without knowing ; when asked to elaborate, pt stated, they might hurt me, without me knowing I was hurt . Declining to use bathroom; observed to have distended abdomen, KUB ordered, pt was willing to have imaging done; awaiting results. Pt was willing to go into treatment room to use bath wipes and clean himself with RN present. Ordered Lactulose to assist with constipation; pt states he will consider taking this. 04/26: Continues paranoid and delusional. Refusing to go into room, bathroom or use commode in room; urinated in unit hallway. Refused Lactulose this morning despite encouragement. Continue current tx plan. 04/27: Continue current regimen and plans Reason for continued inpatient stay Substantial Risk for: inability to function Time Spent With Patient Time: Total time managing care of this patient today ____ minutes.
[2024-04-27 20:18] VITALS: BP 116/73; PULSE 79; TEMP 36.5; O2SAT 100
[2024-04-27] MEDS: risperiDONE Oral Sol 1 MG/ML SOLUTION 6 MG PO (22:45)
--- NOTE | 2024-04-28 15:42 | P.PNPSI_ITS ---
Subjective Subjective Date of Service: 04/28/24 Reason For Visit: Schizophrenia Subjective Notes: Section 8 Guardianship: Yes Interim History: Pts case reviewed in tx planning. Pt with bizarre behavior associated with paranoia urinates in public space to prevent having to go for commode in room. Has been on 6 mg risp minimal change in PI feels like he may be killed attacked or poisoned , not agitated re this but very rigid behavior Reports no bm resistant to efforts to tx Medication Compliance: Intermittent Mental Status Exam Mental Status Exam Patient Appearance: Fatigued and Disheveled Patient Orientation: Person, Place and Situation Level of Consciousness: Awake and Lethargic Patient Behavior: Guarded, Talkative, Suspicious, Resistive to Care, Distractible and Good Eye Contact Mood Description: Blunted Affect Description: Blunted Patient Cognition Impaired: No Ability to Follow Directions: Fair Speech Pattern: Spontaneous Speech and Delayed Delusions: Paranoid Ideation Thought Content: positive for Slowed Thinking, negative for Suicidal Ideation or negative for Homicidal Ideation Judgement: Poor Judgement and Insight: continues to have delusional concerns maredly limiting behavior he was able to ambulate Diagnostics Vital Signs (24Hr): Vital Signs - 24 hr 04/27/24 20:18 Temperature 97.7 F Pulse Rate 79 Blood Pressure 116/73 Pulse Oximetry 100 Oxygen Delivery Method Room Air BMI result Body Mass Index 25.6 Labs 04/20/24 08:23 04/20/24 08:23 Imaging Radiology Impressions: ITS Impressions KUB X-Ray 04/25/24 14:00 IMPRESSION: Large stool burden overall. Electronically signed by: Corin Escoto DO 04/25/2024 07:31 PM [facility]A [facility] Medications Medications Current Medications Acetaminophen (Acetaminophen 325 Mg Tablet) 650 mg PO Q6H PRN PRN Reason: Headache/Pain Mild Scale (1-3) Al Hydroxide/Mg Hydroxide (Magnesium Hydrox/Alum Hydrox 30 Ml Oral.Susp) 30 ml PO Q6H PRN PRN Reason: Heartburn/Nausea Benztropine Mesylate (Benztropine Mesylate 1 Mg Tablet) 1 mg PO DAILY PRN PRN Reason: Extrapyramidal Effects Betamethasone Dipropion Augmented (Betamethasone Dip Aug 0.05% Cr 15 Gm Tube) 1 appl TOPICAL BID [facility]; Protocol Last Admin: 04/28/24 08:52 Dose: Not Given Haloperidol Lactate (Haloperidol Lactate 5 Mg/Ml Vial) 5 mg IM DAILY PRN PRN Reason: Psychosis Hydroxyzine HCl (Hydroxyzine Hcl 25 Mg Tablet) 25 mg PO Q6H PRN PRN Reason: Anxiety Lactic Acid (Ammonium Lactate 12 % Cream 140 Gm Tube) 1 appl TOPICAL BID PRN; Protocol PRN Reason: Dry, scaly skin Last Admin: 04/18/24 20:53 Dose: 1 appl Lactulose (Lactulose 20 Gm/30 Ml Solution) 40 gm PO DAILY [facility] Last Admin: 04/28/24 08:52 Dose: Not Given Lorazepam (Lorazepam 0.5 Mg Tablet) 0.5 mg PO BID [facility] Last Admin: 04/28/24 08:52 Dose: Not Given Magnesium Hydroxide (Milk Of Magnesia 30 Ml Oral.Susp) 30 ml PO DAILY PRN PRN Reason: Constipation Nicotine Polacrilex (Nicotine Polacrilex 2 Mg Gum) 4 mg BUCCAL Q2H PRN PRN Reason: Nicotine Cravings Risperidone (Risperidone Oral Kami 1 Mg/Ml Solution) 6 mg PO BEDTIME [facility] Last Admin: 04/27/24 22:45 Dose: 6 mg Trazodone HCl (Trazodone Hcl 50 Mg Tablet) 50 mg PO BEDTIME MRX1 PRN PRN Reason: Insomnia Allergies Allergies Allergy/AdvReac Type Severity Reaction Status Date / Time Unable to Assess Allergy Verified 03/25/24 21:15 Assessment & Plan Assessment & Plan (1) Schizophrenia: Status: Acute Code(s): F20.9 - Schizophrenia, unspecified Plan 03/26: risperidone /. collateral from mother. clarify legal circumstance/rolando's order. 03/27: refusing meds, not leaving his chair. urinating in cup beneath blanket. requesting immediate discharge. continue to offer medication. clarify legal circumstance and ability to involuntarily administer medication. diamond warning provided. 03/28: Sitting in chair in milieu. Per nursing, patient urinating in cups under blankets. Patient was notified that he must go to his room to use the toilet and can not urinate in common areas. Patient was able to walk down unit hallway with no assistance. Patient is requesting to have a wheelchair d/t being terrified of falling . Patient stated, I do not have any kind of condition. I am just worried about falling . Patient reports that he has not been eating much due to fear of being poisoned however, he would not elaborate as to who he believes is poisoning him. He reports at home he has been urinating in milk cartons and defecating in trash bags and having his mother dispose of these items. Patient agreed to take 1 mg of Risperdal PO; however, expressed paranoia towards RN about being a different medication/dosage despite being shown packaging. T/W obtained information from patient's mother, Chio; Chio reports patient has not been using the toilet for the past two years due to being afraid that snakes will get him and voices telling him the same. Chio reports, pt is also afraid of walking d/t fear of hitting his head. She reports patient has never been on antipsychotics and has only taken anti-anxiety medications for 3 weeks which patient discontinued. She denies history of inpatient psychiatric hospitalizations. She reports having guardianship due to patient being unable to care for self. 03/29: Observing pacing unit hallway. Keeping to self. Covering self with blanket. Per nursing, pt slept in chair in milieu for 5 hours last night. Refused medications last night and this morning. Pt reports he does not want to sleep in a bed d/t feeling more vulnerable when laying down . Patient reports he does not want to go into the bathroom because he is paranoid that something might happen in there or someone might be waiting for me in there . Pt's 3 day up 03/30/24; he is requesting to be discharged home. 03/30: Observed standing at nurses station throughout shift; not taking redirection from staff to please step away for pt confidentiality. Argumentative. 3 day up today; filed on; pt notified. Pt stated, you can't keep me here. I'm going to jose you and make your head spin 3 times! Your documents are not real! Refused Zyprexa. Per nursing, pt urinated in carton in unit hallway;continues to refuse utilizing bathroom. Per nursing, pt did not eat anything today. 03/31: Pacing in front of nurses station. disheveled, malodorous; encouraged to shower, however pt declined despite being offered shower chair and staff member to wait outside shower room if assistance is needed. Per nursing, pt urinated in cup and sensory room floor last evening. Pt continues to report paranoia regarding using bathroom; pt stated, I'm worried someone will be in the bathroom waiting for me because of who I am . When asked why he believes someone would want to hurt him; pt stated, I can't discuss that . denies SI/HI/VH/AH. He reports not eating d/t concerns that he may be poisoned by someone ; observed drinking water from water bottle. Pt offered Zyprexa PO per court ordered treatment plan; per nursing, pt initially refused then agreed to take. 04/01: Patient continues to stand or pace in front of nurses station. disheveled, malodorous; per nursing, pt urinated in trash in [facility] last evening. T/W spoke to patient regarding using restroom on unit; pt continues to report concern that someone can try to kill me because of who I am and who my family is ; when asked why someone would hurt him. Pt stated, because we are well known in [place] and they may hurt me because of it ; pt unable to specify who they are. denies AH/VH. Pt was offered for staff member to examine restroom and stand outside to assure no one is waiting for him; however pt continues to decline. Patient stated, I feel like you guys are playing a psychotic game with me or that they are doing this for their entertainment . 04/02: Patient continues to present similar to days prior. He continues to report paranoia regarding using restroom, shower and eating. Pt stated, I urinated in the trash early in the morning ; he continues to state he will consider using restroom. Pt reports taking bites of breakfast this morning. denies any side effects from Zyprexa other than feeling tired; pt stated, I am feeling a bit calmer . Per nursing, pt slept in chair in [facility] for 7 hours last night. Will continue to build rapport. 04/03: Patient continues to report paranoia regarding using restroom, shower and eating. Pt was offered single room d/t continuous urinating in [facility]; pt declined. Pt stated, I don't think a single room would help. I'm still having the same thoughts . Pt reports he has increased his fluid intake with water, juice and milk; however he continues to report only take a few bites of food. 04/04: Discussed medications increases with pt which he refuses at this time. Focused on discharge, and where his belongings are being stored at this time. 04/05: Patient declined to meet with T/W in unit office; pt stated, I don't feel comfortable going into the office because I think someone would hurt me ; pt reassured no one would hurt him, however, he continued to decline. Met with pt in unit hallway. Patient reports he did not urinate yesterday; he was educated regarding medical complications that can occur with decreased intake of fluids and food. Pt stated, I know but it's not like I'm dying . Pt refused labs. Discussed various solutions of pt feeling safe to use restroom or shower. pt stated, I'm still worried someone is going to hurt me. I'm not sure who, but it's because I am along the lines of royalty and it's putting me in harms way if I use the bathroom, shower or eat . Pt reporting zyprexa is making him too tired ; plan to DC. start risperidal 1mg PO daily with plan to switch to PLAZA; discussed with pt. T/W spoke to patient's mother, Chio, who reports has not left the house in 2 years and has not bathed or used the restroom in a year. She expressed concern over his wellbeing of not drinking or eating. She plans on calling patient to encourage him increase fluid intake. 04/07: Pt continues similar to days prior. Pt reports he did not urinate yesterday. Refused labs again. Hearing was held today; Pt was commited. T/W informed pt of plan to increase risperidal. Pt to receive additional risperidal 1mg PO bedtime dose to night. Starting tomorrow, Increase: Risperidal 2mg PO bedtime. 04/08: Staying in common area, however, keeping to self. per nursing, pt urinated in multiple cups last evening in common area and declined to use restroom. Pt reports feeling frustrated about not being discharged ; T/W discussed plan with medications again. Pt requesting to be discharged home today; asking multiple staff. Pt continues to report paranoia regarding using toilet, shower, eating/drinking. Encouraged to allow labs. 04/10: No changes. Encourage ongoing med adherence especially for Risperdal. Also encourage elevating legs as per hospitalist evaluation on 04/06/2024. Ordering an extra large compression stockings. 04/11: Met with pt in unit office. Continues to stay in common areas. paranoid. Pt discussed paranoia regarding eating; pt stated, how do you know someone isn't trying to poison me? People in this hospital. Per nursing, ate 10% of one meal yesterday and 25% of one meal today, has not eaten anything otherwise. Patient continues to refuse labs; shower (pt reports he has not bathed himself since admission and refusing to change clothes). Declining to use bathroom. perseverating on discharge to go back home where I can continue doing these things and be more comfortable . Continues similar to days prior; ? possible cheeking, will switch to risperidal liquid. Increase dose to Risperidal 3mg PO bedtime. Wound consult ordered for bilateral legs 04/12: Met with pt in unit office. Continues to stay in common areas; declining to go into assigned room for any reason. He continues paranoid, anxious, fearful. Pt argumentative and requesting discharge since he has been able to meet with T/W in the unit office for the past 2 days. Discussed that pt does not allow for the door to be closed, continues with paranoia stating my safety is a concern if the door is closed . Declining bathroom and shower. Discussed change of medication to liquid d/t possible cheeking. 04/13: Pt continues paranoid, anxious, fearful. T/W and clinical social worker, Sabi, encouraged pt to walk into his room; lights were turned on to show no one was in the room and it was safe; however, pt continues to make paranoid statements of someone waiting to hurt him. Pt reports he did not urinate yesterday; discussed the importance of drinking fluids and eating meals. Per nursing, pt ate 5% of breakfast yesterday and declined lunch and dinner. Continue current tx plan. 04/14: Pt continues similar to days prior. Refusing to cross threshold into any room other than side office. Continues concerned that someone may hurt him if he goes into a room even if staff are with him. Per nursing, pt has not eaten or drank fluids today. He did urinate in trash can in the mileu and continues to refuse using restroom; despite having access to multiple bathrooms. Continue current tx plan. 04/15: T/W and RN attempting to reassure patient of his safety to be able to cross threshold into his room. Continues to believe someone may be hiding in the room to hurt him. Argumentative, attempting to change topic when asked questions about challenging his anxiety and paranoia. Per nursing, pt continues to have poor intake. Pt reports he did not urinate yesterday 04/17: No changes 04/18: Met with Dr. Lorenzana present. Pt continues to decline to go into bedroom or restroom; was willing to meet in side office with door open. He continues to discuss his anxiety and paranoia regarding being attacked by someone or snakes . Pt states he does not believe to have a mental illness ; requesting to be discharged home. Pt re-educated on goal of treatment. 04/19: Pt continues similar to days prior. Patient was given single room however pt continues to decline to enter room despite not having a room mate. He reports not urinating or having a bowel movement yesterday or today. Risperidal increased 4mg PO bedtime; pt aware. Labs ordered for tomorrow for monitoring of medical status while being treated with antipsychotics medications; informed consent obtained from guardian and patient is aware that informed consent was obtained. 04/20: pt continues to decline to enter his single room. Chair was placed between hallway and bedroom threshold; pt stated, I'm not going in there because I'm worried I might if I sit down . Continues with paranoid delusions. denies any side effects from increase in risperidal. encouraged to take Ativan to help with anxiety. Declined to go into his room to receive leg treatment. Declined to use restroom. 04/21: Continues with paranoid delusions; pt stated, I won't go in there because someone wants to kill me. I don't know who exactly. I know this from the narrative I hear and the symbolism I see on TV and commercial trucks . Declined to go into his room to receive leg treatment. Declined to use restroom. Eating/drinking minimally. Spoke with patient's mother and guardian, Chio, via phone. Reviewed current treatment plan and labs. 04/22: Patient continues similar to days prior. Continues with paranoid delusions; Declined to go into his room to receive leg treatment. Declined to use restroom. Eating/drinking minimally. Patient encouraged to challenge anxiety. 04/23 continue tx. 04/24 continue tx. increase risperidone to 6mg po qhs. 04/25: Continues paranoid and delusional. Refusing to go into room; pt stated, If I go in there I can be hurt with or without knowing ; when asked to elaborate, pt stated, they might hurt me, without me knowing I was hurt . Declining to use bathroom; observed to have distended abdomen, KUB ordered, pt was willing to have imaging done; awaiting results. Pt was willing to go into treatment room to use bath wipes and clean himself with RN present. Ordered Lactulose to assist with constipation; pt states he will consider taking this. 04/26: Continues paranoid and delusional. Refusing to go into room, bathroom or use commode in room; urinated in unit hallway. Refused Lactulose this morning despite encouragement. Continue current tx plan. 04/27: Continue current regimen and plans 04/28/24 Cont risp monitor response cont behavioral plan for helping re ability to lie down to enter a room encourage inc liquids latulose enema if needed Reason for continued inpatient stay Substantial Risk for: inability to function, rapid decompensation and med/psych decompensation Time Spent With Patient Time: Total time managing care of this patient today ____ minutes.
[2024-04-28 20:16] VITALS: BP 97/63; PULSE 93; RESP 18; TEMP 36.4; O2SAT 98
[2024-04-28] MEDS: risperiDONE Oral Sol 1 MG/ML SOLUTION 6 MG PO (23:20)
[2024-04-29 08:00] VITALS: RESP 18
--- NOTE | 2024-04-29 11:24 | HO.PSYCHPN ---
Subjective Subjective Date of Service: 04/29/24 Reason For Visit: Schizophrenia Subjective Notes: Section 8 Interim History: Keeping to self. urinated in trash bin in unit office. continues to refuse to go into bedroom or bathroom. offered commode and staff bathroom in unit hallway; however continues to decline. paranoid, delusional. Refusing lactulose despite education and no BM. Medication Compliance: Intermittent Side effects from medications: No Attending Groups: No Mental Status Exam Mental Status Exam Narrative: Pt is alert and oriented; behavior is calm; dressed in hospital attire, malodorous, disheveled; mood is described as okay ; eye contact appropriate; Speech is normal rate, volume and not pressured; focused on discharge; paranoid, delusional. denies SI/HI. Insight and judgment are poor. Diagnostics Vital Signs (24Hr): Vital Signs - 24 hr 04/28/24 20:16 04/29/24 08:00 Temperature 97.5 F Pulse Rate 93 Respiratory Rate 18 18 Blood Pressure 97/63 Pulse Oximetry 98 Oxygen Delivery Method Room Air BMI result Body Mass Index 25.6 Labs 04/20/24 08:23 04/20/24 08:23 Imaging Radiology Impressions: ITS Impressions KUB X-Ray 04/25/24 14:00 IMPRESSION: Large stool burden overall. Electronically signed by: Corin Escoto DO 04/25/2024 07:31 PM EST Medications Medications Current Medications Acetaminophen (Acetaminophen 325 Mg Tablet) 650 mg PO Q6H PRN PRN Reason: Headache/Pain Mild Scale (1-3) Al Hydroxide/Mg Hydroxide (Magnesium Hydrox/Alum Hydrox 30 Ml Oral.Susp) 30 ml PO Q6H PRN PRN Reason: Heartburn/Nausea Benztropine Mesylate (Benztropine Mesylate 1 Mg Tablet) 1 mg PO DAILY PRN PRN Reason: Extrapyramidal Effects Betamethasone Dipropion Augmented (Betamethasone Dip Aug 0.05% Cr 15 Gm Tube) 1 appl TOPICAL BID LENI; Protocol Last Admin: 04/29/24 08:44 Dose: Not Given Haloperidol Lactate (Haloperidol Lactate 5 Mg/Ml Vial) 5 mg IM DAILY PRN PRN Reason: Psychosis Hydroxyzine HCl (Hydroxyzine Hcl 25 Mg Tablet) 25 mg PO Q6H PRN PRN Reason: Anxiety Lactic Acid (Ammonium Lactate 12 % Cream 140 Gm Tube) 1 appl TOPICAL BID PRN; Protocol PRN Reason: Dry, scaly skin Last Admin: 04/18/24 20:53 Dose: 1 appl Lactulose (Lactulose 20 Gm/30 Ml Solution) 40 gm PO BID [facility] Last Admin: 04/29/24 08:44 Dose: Not Given Lorazepam (Lorazepam 0.5 Mg Tablet) 0.5 mg PO BEDTIME LENI Last Admin: 04/28/24 23:22 Dose: Not Given Magnesium Hydroxide (Milk Of Magnesia 30 Ml Oral.Susp) 30 ml PO DAILY PRN PRN Reason: Constipation Nicotine Polacrilex (Nicotine Polacrilex 2 Mg Gum) 4 mg BUCCAL Q2H PRN PRN Reason: Nicotine Cravings Risperidone (Risperidone Oral Kami 1 Mg/Ml Solution) 6 mg PO BEDTIME [facility] Last Admin: 04/28/24 23:20 Dose: 6 mg Trazodone HCl (Trazodone Hcl 50 Mg Tablet) 50 mg PO BEDTIME MRX1 PRN PRN Reason: Insomnia Allergies Allergies Allergy/AdvReac Type Severity Reaction Status Date / Time Unable to Assess Allergy Verified 03/25/24 21:15 Assessment & Plan Assessment & Plan (1) Schizophrenia: Status: Acute Code(s): F20.9 - Schizophrenia, unspecified Plan 03/26: risperidone /. collateral from mother. clarify legal circumstance/rolando's order. 03/27: refusing meds, not leaving his chair. urinating in cup beneath blanket. requesting immediate discharge. continue to offer medication. clarify legal circumstance and ability to involuntarily administer medication. diamond warning provided. 03/28: Sitting in chair in milieu. Per nursing, patient urinating in cups under blankets. Patient was notified that he must go to his room to use the toilet and can not urinate in common areas. Patient was able to walk down unit hallway with no assistance. Patient is requesting to have a wheelchair d/t being terrified of falling . Patient stated, I do not have any kind of condition. I am just worried about falling . Patient reports that he has not been eating much due to fear of being poisoned however, he would not elaborate as to who he believes is poisoning him. He reports at home he has been urinating in milk cartons and defecating in trash bags and having his mother dispose of these items. Patient agreed to take 1 mg of Risperdal PO; however, expressed paranoia towards RN about being a different medication/dosage despite being shown packaging. T/W obtained information from patient's mother, Chio; Chio reports patient has not been using the toilet for the past two years due to being afraid that snakes will get him and voices telling him the same. Chio reports, pt is also afraid of walking d/t fear of hitting his head. She reports patient has never been on antipsychotics and has only taken anti-anxiety medications for 3 weeks which patient discontinued. She denies history of inpatient psychiatric hospitalizations. She reports having guardianship due to patient being unable to care for self. 03/29: Observing pacing unit hallway. Keeping to self. Covering self with blanket. Per nursing, pt slept in chair in milieu for 5 hours last night. Refused medications last night and this morning. Pt reports he does not want to sleep in a bed d/t feeling more vulnerable when laying down . Patient reports he does not want to go into the bathroom because he is paranoid that something might happen in there or someone might be waiting for me in there . Pt's 3 day up 03/30/24; he is requesting to be discharged home. 03/30: Observed standing at nurses station throughout shift; not taking redirection from staff to please step away for pt confidentiality. Argumentative. 3 day up today; filed on; pt notified. Pt stated, you can't keep me here. I'm going to jose you and make your head spin 3 times! Your documents are not real! Refused Zyprexa. Per nursing, pt urinated in carton in unit hallway;continues to refuse utilizing bathroom. Per nursing, pt did not eat anything today. 03/31: Pacing in front of nurses station. disheveled, malodorous; encouraged to shower, however pt declined despite being offered shower chair and staff member to wait outside shower room if assistance is needed. Per nursing, pt urinated in cup and sensory room floor last evening. Pt continues to report paranoia regarding using bathroom; pt stated, I'm worried someone will be in the bathroom waiting for me because of who I am . When asked why he believes someone would want to hurt him; pt stated, I can't discuss that . denies SI/HI/VH/AH. He reports not eating d/t concerns that he may be poisoned by someone ; observed drinking water from water bottle. Pt offered Zyprexa PO per court ordered treatment plan; per nursing, pt initially refused then agreed to take. 04/01: Patient continues to stand or pace in front of nurses station. disheveled, malodorous; per nursing, pt urinated in trash in [facility] last evening. T/W spoke to patient regarding using restroom on unit; pt continues to report concern that someone can try to kill me because of who I am and who my family is ; when asked why someone would hurt him. Pt stated, because we are well known in [place] and they may hurt me because of it ; pt unable to specify who they are. denies AH/VH. Pt was offered for staff member to examine restroom and stand outside to assure no one is waiting for him; however pt continues to decline. Patient stated, I feel like you guys are playing a psychotic game with me or that they are doing this for their entertainment . 04/02: Patient continues to present similar to days prior. He continues to report paranoia regarding using restroom, shower and eating. Pt stated, I urinated in the trash early in the morning ; he continues to state he will consider using restroom. Pt reports taking bites of breakfast this morning. denies any side effects from Zyprexa other than feeling tired; pt stated, I am feeling a bit calmer . Per nursing, pt slept in chair in [facility] for 7 hours last night. Will continue to build rapport. 04/03: Patient continues to report paranoia regarding using restroom, shower and eating. Pt was offered single room d/t continuous urinating in [facility]; pt declined. Pt stated, I don't think a single room would help. I'm still having the same thoughts . Pt reports he has increased his fluid intake with water, juice and milk; however he continues to report only take a few bites of food. 04/04: Discussed medications increases with pt which he refuses at this time. Focused on discharge, and where his belongings are being stored at this time. 04/05: Patient declined to meet with T/W in unit office; pt stated, I don't feel comfortable going into the office because I think someone would hurt me ; pt reassured no one would hurt him, however, he continued to decline. Met with pt in unit hallway. Patient reports he did not urinate yesterday; he was educated regarding medical complications that can occur with decreased intake of fluids and food. Pt stated, I know but it's not like I'm dying . Pt refused labs. Discussed various solutions of pt feeling safe to use restroom or shower. pt stated, I'm still worried someone is going to hurt me. I'm not sure who, but it's because I am along the lines of royalty and it's putting me in harms way if I use the bathroom, shower or eat . Pt reporting zyprexa is making him too tired ; plan to DC. start risperidal 1mg PO daily with plan to switch to PLAZA; discussed with pt. T/W spoke to patient's mother, Chio, who reports has not left the house in 2 years and has not bathed or used the restroom in a year. She expressed concern over his wellbeing of not drinking or eating. She plans on calling patient to encourage him increase fluid intake. 04/07: Pt continues similar to days prior. Pt reports he did not urinate yesterday. Refused labs again. Hearing was held today; Pt was commited. T/W informed pt of plan to increase risperidal. Pt to receive additional risperidal 1mg PO bedtime dose to night. Starting tomorrow, Increase: Risperidal 2mg PO bedtime. 04/08: Staying in common area, however, keeping to self. per nursing, pt urinated in multiple cups last evening in common area and declined to use restroom. Pt reports feeling frustrated about not being discharged ; T/W discussed plan with medications again. Pt requesting to be discharged home today; asking multiple staff. Pt continues to report paranoia regarding using toilet, shower, eating/drinking. Encouraged to allow labs. 04/10: No changes. Encourage ongoing med adherence especially for Risperdal. Also encourage elevating legs as per hospitalist evaluation on 04/06/2024. Ordering an extra large compression stockings. 04/11: Met with pt in unit office. Continues to stay in common areas. paranoid. Pt discussed paranoia regarding eating; pt stated, how do you know someone isn't trying to poison me? People in this hospital. Per nursing, ate 10% of one meal yesterday and 25% of one meal today, has not eaten anything otherwise. Patient continues to refuse labs; shower (pt reports he has not bathed himself since admission and refusing to change clothes). Declining to use bathroom. perseverating on discharge to go back home where I can continue doing these things and be more comfortable . Continues similar to days prior; ? possible cheeking, will switch to risperidal liquid. Increase dose to Risperidal 3mg PO bedtime. Wound consult ordered for bilateral legs 04/12: Met with pt in unit office. Continues to stay in common areas; declining to go into assigned room for any reason. He continues paranoid, anxious, fearful. Pt argumentative and requesting discharge since he has been able to meet with T/W in the unit office for the past 2 days. Discussed that pt does not allow for the door to be closed, continues with paranoia stating my safety is a concern if the door is closed . Declining bathroom and shower. Discussed change of medication to liquid d/t possible cheeking. 04/13: Pt continues paranoid, anxious, fearful. T/W and dialysis social worker, Sabi, encouraged pt to walk into his room; lights were turned on to show no one was in the room and it was safe; however, pt continues to make paranoid statements of someone waiting to hurt him. Pt reports he did not urinate yesterday; discussed the importance of drinking fluids and eating meals. Per nursing, pt ate 5% of breakfast yesterday and declined lunch and dinner. Continue current tx plan. 04/14: Pt continues similar to days prior. Refusing to cross threshold into any room other than side office. Continues concerned that someone may hurt him if he goes into a room even if staff are with him. Per nursing, pt has not eaten or drank fluids today. He did urinate in trash can in the mileu and continues to refuse using restroom; despite having access to multiple bathrooms. Continue current tx plan. 04/15: T/W and RN attempting to reassure patient of his safety to be able to cross threshold into his room. Continues to believe someone may be hiding in the room to hurt him. Argumentative, attempting to change topic when asked questions about challenging his anxiety and paranoia. Per nursing, pt continues to have poor intake. Pt reports he did not urinate yesterday 04/17: No changes 04/18: Met with Dr. Lorenzana present. Pt continues to decline to go into bedroom or restroom; was willing to meet in side office with door open. He continues to discuss his anxiety and paranoia regarding being attacked by someone or snakes . Pt states he does not believe to have a mental illness ; requesting to be discharged home. Pt re-educated on goal of treatment. 04/19: Pt continues similar to days prior. Patient was given single room however pt continues to decline to enter room despite not having a room mate. He reports not urinating or having a bowel movement yesterday or today. Risperidal increased 4mg PO bedtime; pt aware. Labs ordered for tomorrow for monitoring of medical status while being treated with antipsychotics medications; informed consent obtained from guardian and patient is aware that informed consent was obtained. 04/20: pt continues to decline to enter his single room. Chair was placed between hallway and bedroom threshold; pt stated, I'm not going in there because I'm worried I might if I sit down . Continues with paranoid delusions. denies any side effects from increase in risperidal. encouraged to take Ativan to help with anxiety. Declined to go into his room to receive leg treatment. Declined to use restroom. 04/21: Continues with paranoid delusions; pt stated, I won't go in there because someone wants to kill me. I don't know who exactly. I know this from the narrative I hear and the symbolism I see on TV and commercial trucks . Declined to go into his room to receive leg treatment. Declined to use restroom. Eating/drinking minimally. Spoke with patient's mother and guardian, Chio, via phone. Reviewed current treatment plan and labs. 04/22: Patient continues similar to days prior. Continues with paranoid delusions; Declined to go into his room to receive leg treatment. Declined to use restroom. Eating/drinking minimally. Patient encouraged to challenge anxiety. 04/23 continue tx. 04/24 continue tx. increase risperidone to 6mg po qhs. 04/25: Continues paranoid and delusional. Refusing to go into room; pt stated, If I go in there I can be hurt with or without knowing ; when asked to elaborate, pt stated, they might hurt me, without me knowing I was hurt . Declining to use bathroom; observed to have distended abdomen, KUB ordered, pt was willing to have imaging done; awaiting results. Pt was willing to go into treatment room to use bath wipes and clean himself with RN present. Ordered Lactulose to assist with constipation; pt states he will consider taking this. 04/26: Continues paranoid and delusional. Refusing to go into room, bathroom or use commode in room; urinated in unit hallway. Refused Lactulose this morning despite encouragement. Continue current tx plan. 04/27: Continue current regimen and plans 04/28/24 Cont risp monitor response cont behavioral plan for helping re ability to lie down to enter a room encourage inc liquids latulose enema if needed 04/29: Keeping to self. urinated in trash bin in unit office. continues to refuse to go into bedroom or bathroom. offered commode and staff bathroom in unit hallway; however continues to decline. paranoid, delusional. Refusing lactulose despite education and no BM. Patient educated on: diagnosis and medication risk/benefits Reason for continued inpatient stay Substantial Risk for: med/psych decompensation Time Spent With Patient Time: Total time managing care of this patient today _20___ minutes.
[2024-04-29 14:34] LABS: 9-Hydroxyrisperidone 12.9 ng/mL; Risperidone 1.1 ng/mL
[2024-04-29 20:00] VITALS: BP 105/68; PULSE 91; RESP 16; TEMP 36.3; O2SAT 98
[2024-04-29] MEDS: risperiDONE Oral Sol 1 MG/ML SOLUTION 6 MG PO (21:44)
--- NOTE | 2024-04-30 10:36 | P.PNPSI_ITS ---
Subjective Subjective Date of Service: 04/30/24 Reason For Visit: Schizophrenia Interim History: Keeping to self. Staying in common areas and refuses to sleep in room. He however reportedly was able to go to his room and had a BM on the commode after midnight tonight. He says he is feeling his worries are subsiding. Specifically about being poisoned and seems to be eating a little more over the past 24 hours. Review of Systems Review of Systems no acute changes Yes all other systems are reviewed and are negative Constitutional: Reports as per HPI Eyes: Reports as per HPI Reports as per HPI Cardiovascular: Reports as per HPI Respiratory: Reports as per HPI Gastrointestinal: Reports as per HPI Genitourinary: Reports as per HPI Musculoskeletal: Reports as per HPI Skin/Breast: Reports as per HPI Reports as per HPI Psychiatric: Reports as per HPI Endocrine: Reports as per HPI Hematologic/Lymphatic: Reports as per HPI Allergic/Immunologic: Reports as per HPI Mental Status Exam Mental Status Exam Narrative: Pt is alert and oriented; behavior is calm; dressed in hospital attire, malodorous, disheveled; mood is described as okay ; eye contact appropriate; Speech is normal rate, volume and not pressured; focused on discharge; paranoid, delusional. denies SI/HI. Insight and judgment are poor. Patient Appearance: Fatigued and Disheveled Patient Orientation: Person, Place and Situation Level of Consciousness: Awake and Lethargic Patient Behavior: Guarded, Talkative, Suspicious, Resistive to Care, Distractible and Good Eye Contact Mood Description: Blunted Affect Description: Blunted Patient Cognition Impaired: No Ability to Follow Directions: Fair Speech Pattern: Spontaneous Speech and Delayed Memory Description: Episodic Impaired Diagnostics Vital Signs (24Hr): Vital Signs - 24 hr 04/29/24 20:00 Temperature 97.3 F Pulse Rate 91 Respiratory Rate 16 Blood Pressure 105/68 Pulse Oximetry 98 Oxygen Delivery Method Room Air BMI result Body Mass Index 25.6 Labs 04/20/24 08:23 04/20/24 08:23 Labs: Laboratory Results - last 48 hr 04/20/24 08:23 Risperidone 1.1 Risperidone &9-Hydroxy 14.0 9-Hydroxy Risperidone 12.9 Imaging Radiology Impressions: ITS Impressions KUB X-Ray 04/25/24 14:00 IMPRESSION: Large stool burden overall. Electronically signed by: Corin Escoto DO 04/25/2024 07:[address] [facility] Medications Medications Current Medications Acetaminophen (Acetaminophen 325 Mg Tablet) 650 mg PO Q6H PRN PRN Reason: Headache/Pain Mild Scale (1-3) Al Hydroxide/Mg Hydroxide (Magnesium Hydrox/Alum Hydrox 30 Ml Oral.Susp) 30 ml PO Q6H PRN PRN Reason: Heartburn/Nausea Benztropine Mesylate (Benztropine Mesylate 1 Mg Tablet) 1 mg PO DAILY PRN PRN Reason: Extrapyramidal Effects Betamethasone Dipropion Augmented (Betamethasone Dip Aug 0.05% Cr 15 Gm Tube) 1 appl TOPICAL BID LENI; Protocol Last Admin: 04/30/24 09:00 Dose: Not Given Haloperidol Lactate (Haloperidol Lactate 5 Mg/Ml Vial) 5 mg IM DAILY PRN PRN Reason: Psychosis Hydroxyzine HCl (Hydroxyzine Hcl 25 Mg Tablet) 25 mg PO Q6H PRN PRN Reason: Anxiety Lactic Acid (Ammonium Lactate 12 % Cream 140 Gm Tube) 1 appl TOPICAL BID PRN; Protocol PRN Reason: Dry, scaly skin Last Admin: 04/18/24 20:53 Dose: 1 appl Lactulose (Lactulose 20 Gm/30 Ml Solution) 40 gm PO BID LENI Last Admin: 04/30/24 09:00 Dose: Not Given Lorazepam (Lorazepam 0.5 Mg Tablet) 0.5 mg PO BEDTIME [facility] Last Admin: 04/29/24 21:47 Dose: Not Given Magnesium Hydroxide (Milk Of Magnesia 30 Ml Oral.Susp) 30 ml PO DAILY PRN PRN Reason: Constipation Nicotine Polacrilex (Nicotine Polacrilex 2 Mg Gum) 4 mg BUCCAL Q2H PRN PRN Reason: Nicotine Cravings Risperidone (Risperidone Oral Kami 1 Mg/Ml Solution) 6 mg PO BEDTIME [facility] Last Admin: 04/29/24 21:44 Dose: 6 mg Trazodone HCl (Trazodone Hcl 50 Mg Tablet) 50 mg PO BEDTIME MRX1 PRN PRN Reason: Insomnia Allergies Allergies Allergy/AdvReac Type Severity Reaction Status Date / Time Unable to Assess Allergy Verified 03/25/24 21:15 Assessment & Plan Assessment & Plan (1) Schizophrenia: Status: Acute Code(s): F20.9 - Schizophrenia, unspecified Plan 03/26: risperidone 1/2. collateral from mother. clarify legal circumstance/rolando's order. 03/27: refusing meds, not leaving his chair. urinating in cup beneath blanket. requesting immediate discharge. continue to offer medication. clarify legal circumstance and ability to involuntarily administer medication. diamond warning provided. 03/28: Sitting in chair in milieu. Per nursing, patient urinating in cups under blankets. Patient was notified that he must go to his room to use the toilet and can not urinate in common areas. Patient was able to walk down unit hallway with no assistance. Patient is requesting to have a wheelchair d/t being terrified of falling . Patient stated, I do not have any kind of condition. I am just worried about falling . Patient reports that he has not been eating much due to fear of being poisoned however, he would not elaborate as to who he believes is poisoning him. He reports at home he has been urinating in milk cartons and defecating in trash bags and having his mother dispose of these items. Patient agreed to take 1 mg of Risperdal PO; however, expressed paranoia towards RN about being a different medication/dosage despite being shown packaging. T/W obtained information from patient's mother, Chio; Chio reports patient has not been using the toilet for the past two years due to being afraid that snakes will get him and voices telling him the same. Chio reports, pt is also afraid of walking d/t fear of hitting his head. She reports patient has never been on antipsychotics and has only taken anti-anxiety medications for 3 weeks which patient discontinued. She denies history of inpatient psychiatric hospitalizations. She reports having guardianship due to patient being unable to care for self. 03/29: Observing pacing unit hallway. Keeping to self. Covering self with blanket. Per nursing, pt slept in chair in milieu for 5 hours last night. Refused medications last night and this morning. Pt reports he does not want to sleep in a bed d/t feeling more vulnerable when laying down . Patient reports he does not want to go into the bathroom because he is paranoid that something might happen in there or someone might be waiting for me in there . Pt's 3 day up 03/30/24; he is requesting to be discharged home. 03/30: Observed standing at nurses station throughout shift; not taking redirection from staff to please step away for pt confidentiality. Argumentative. 3 day up today; filed on; pt notified. Pt stated, you can't keep me here. I'm going to jose you and make your head spin 3 times! Your documents are not real! Refused Zyprexa. Per nursing, pt urinated in carton in unit hallway;continues to refuse utilizing bathroom. Per nursing, pt did not eat anything today. 03/31: Pacing in front of nurses station. disheveled, malodorous; encouraged to shower, however pt declined despite being offered shower chair and staff member to wait outside shower room if assistance is needed. Per nursing, pt urinated in cup and sensory room floor last evening. Pt continues to report paranoia regarding using bathroom; pt stated, I'm worried someone will be in the bathroom waiting for me because of who I am . When asked why he believes someone would want to hurt him; pt stated, I can't discuss that . denies SI/HI/VH/AH. He reports not eating d/t concerns that he may be poisoned by someone ; observed drinking water from water bottle. Pt offered Zyprexa PO per court ordered treatment plan; per nursing, pt initially refused then agreed to take. 04/01: Patient continues to stand or pace in front of nurses station. disheveled, malodorous; per nursing, pt urinated in trash in mileu last evening. T/W spoke to patient regarding using restroom on unit; pt continues to report concern that someone can try to kill me because of who I am and who my family is ; when asked why someone would hurt him. Pt stated, because we are well known in [place] and they may hurt me because of it ; pt unable to specify who they are. denies AH/VH. Pt was offered for staff member to examine restroom and stand outside to assure no one is waiting for him; however pt continues to decline. Patient stated, I feel like you guys are playing a psychotic game with me or that they are doing this for their entertainment . 04/02: Patient continues to present similar to days prior. He continues to report paranoia regarding using restroom, shower and eating. Pt stated, I urinated in the trash early in the morning ; he continues to state he will consider using restroom. Pt reports taking bites of breakfast this morning. denies any side effects from Zyprexa other than feeling tired; pt stated, I am feeling a bit calmer . Per nursing, pt slept in chair in [facility] for 7 hours last night. Will continue to build rapport. 04/03: Patient continues to report paranoia regarding using restroom, shower and eating. Pt was offered single room d/t continuous urinating in [facility]; pt declined. Pt stated, I don't think a single room would help. I'm still having the same thoughts . Pt reports he has increased his fluid intake with water, juice and milk; however he continues to report only take a few bites of food. 04/04: Discussed medications increases with pt which he refuses at this time. Focused on discharge, and where his belongings are being stored at this time. 04/05: Patient declined to meet with T/W in unit office; pt stated, I don't feel comfortable going into the office because I think someone would hurt me ; pt reassured no one would hurt him, however, he continued to decline. Met with pt in unit hallway. Patient reports he did not urinate yesterday; he was educated regarding medical complications that can occur with decreased intake of fluids and food. Pt stated, I know but it's not like I'm dying . Pt refused labs. Discussed various solutions of pt feeling safe to use restroom or shower. pt stated, I'm still worried someone is going to hurt me. I'm not sure who, but it's because I am along the lines of royalty and it's putting me in harms way if I use the bathroom, shower or eat . Pt reporting zyprexa is making him too tired ; plan to DC. start risperidal 1mg PO daily with plan to switch to PLAZA; discussed with pt. T/W spoke to patient's mother, Chio, who reports has not left the house in 2 years and has not bathed or used the restroom in a year. She expressed concern over his wellbeing of not drinking or eating. She plans on calling patient to encourage him increase fluid intake. 04/07: Pt continues similar to days prior. Pt reports he did not urinate yesterday. Refused labs again. Hearing was held today; Pt was commited. T/W informed pt of plan to increase risperidal. Pt to receive additional risperidal 1mg PO bedtime dose to night. Starting tomorrow, Increase: Risperidal 2mg PO bedtime. 04/08: Staying in common area, however, keeping to self. per nursing, pt urinated in multiple cups last evening in common area and declined to use restroom. Pt reports feeling frustrated about not being discharged ; T/W discussed plan with medications again. Pt requesting to be discharged home today; asking multiple staff. Pt continues to report paranoia regarding using toilet, shower, eating/drinking. Encouraged to allow labs. 04/10: No changes. Encourage ongoing med adherence especially for Risperdal. Also encourage elevating legs as per hospitalist evaluation on 04/06/2024. Ordering an extra large compression stockings. 04/11: Met with pt in unit office. Continues to stay in common areas. paranoid. Pt discussed paranoia regarding eating; pt stated, how do you know someone isn't trying to poison me? People in this hospital. Per nursing, ate 10% of one meal yesterday and 25% of one meal today, has not eaten anything otherwise. Patient continues to refuse labs; shower (pt reports he has not bathed himself since admission and refusing to change clothes). Declining to use bathroom. perseverating on discharge to go back home where I can continue doing these things and be more comfortable . Continues similar to days prior; ? possible cheeking, will switch to risperidal liquid. Increase dose to Risperidal 3mg PO bedtime. Wound consult ordered for bilateral legs 04/12: Met with pt in unit office. Continues to stay in common areas; declining to go into assigned room for any reason. He continues paranoid, anxious, fearful. Pt argumentative and requesting discharge since he has been able to meet with T/W in the unit office for the past 2 days. Discussed that pt does not allow for the door to be closed, continues with paranoia stating my safety is a concern if the door is closed . Declining bathroom and shower. Discussed change of medication to liquid d/t possible cheeking. 04/13: Pt continues paranoid, anxious, fearful. T/W and social media senior associate, Sabi, encouraged pt to walk into his room; lights were turned on to show no one was in the room and it was safe; however, pt continues to make paranoid statements of someone waiting to hurt him. Pt reports he did not urinate yesterday; discussed the importance of drinking fluids and eating meals. Per nursing, pt ate 5% of breakfast yesterday and declined lunch and dinner. Continue current tx plan. 04/14: Pt continues similar to days prior. Refusing to cross threshold into any room other than side office. Continues concerned that someone may hurt him if he goes into a room even if staff are with him. Per nursing, pt has not eaten or drank fluids today. He did urinate in trash can in the mileu and continues to refuse using restroom; despite having access to multiple bathrooms. Continue current tx plan. 04/15: T/W and RN attempting to reassure patient of his safety to be able to cross threshold into his room. Continues to believe someone may be hiding in the room to hurt him. Argumentative, attempting to change topic when asked questions about challenging his anxiety and paranoia. Per nursing, pt continues to have poor intake. Pt reports he did not urinate yesterday 04/17: No changes 04/18: Met with Dr. Lorenzana present. Pt continues to decline to go into bedroom or restroom; was willing to meet in side office with door open. He continues to discuss his anxiety and paranoia regarding being attacked by someone or snakes . Pt states he does not believe to have a mental illness ; requesting to be discharged home. Pt re-educated on goal of treatment. 04/19: Pt continues similar to days prior. Patient was given single room however pt continues to decline to enter room despite not having a room mate. He reports not urinating or having a bowel movement yesterday or today. Risperidal increased 4mg PO bedtime; pt aware. Labs ordered for tomorrow for monitoring of medical status while being treated with antipsychotics medications; informed consent obtained from guardian and patient is aware that informed consent was obtained. 04/20: pt continues to decline to enter his single room. Chair was placed between hallway and bedroom threshold; pt stated, I'm not going in there because I'm worried I might if I sit down . Continues with paranoid delusions. denies any side effects from increase in risperidal. encouraged to take Ativan to help with anxiety. Declined to go into his room to receive leg treatment. Declined to use restroom. 04/21: Continues with paranoid delusions; pt stated, I won't go in there because someone wants to kill me. I don't know who exactly. I know this from the narrative I hear and the symbolism I see on TV and commercial trucks . Declined to go into his room to receive leg treatment. Declined to use restroom. Eating/drinking minimally. Spoke with patient's mother and guardian, Chio, via phone. Reviewed current treatment plan and labs. 04/22: Patient continues similar to days prior. Continues with paranoid delusions; Declined to go into his room to receive leg treatment. Declined to use restroom. Eating/drinking minimally. Patient encouraged to challenge anxiety. 04/23 continue tx. 04/24 continue tx. increase risperidone to 6mg po qhs. 04/25: Continues paranoid and delusional. Refusing to go into room; pt stated, If I go in there I can be hurt with or without knowing ; when asked to elaborate, pt stated, they might hurt me, without me knowing I was hurt . Declining to use bathroom; observed to have distended abdomen, KUB ordered, pt was willing to have imaging done; awaiting results. Pt was willing to go into treatment room to use bath wipes and clean himself with RN present. Ordered Lactulose to assist with constipation; pt states he will consider taking this. 04/26: Continues paranoid and delusional. Refusing to go into room, bathroom or use commode in room; urinated in unit hallway. Refused Lactulose this morning despite encouragement. Continue current tx plan. 04/27: Continue current regimen and plans 04/28/24 Cont risp monitor response cont behavioral plan for helping re ability to lie down to enter a room encourage inc liquids latulose enema if needed 04/29: Keeping to self. urinated in trash bin in unit office. continues to refuse to go into bedroom or bathroom. offered commode and staff bathroom in unit hallway; however continues to decline. paranoid, delusional. Refusing lactulose despite education and no BM. 04/30: Continue current management and treatment plan. Reason for continued inpatient stay Substantial Risk for: inability to function, rapid decompensation and med/psych decompensation Time Spent With Patient Time: Total time managing care of this patient today ____ minutes.
[2024-04-30 20:00] VITALS: BP 96/53; PULSE 87; RESP 14; TEMP 36.8; O2SAT 98
[2024-04-30] MEDS: risperiDONE Oral Sol 1 MG/ML SOLUTION 6 MG PO (21:34)
[2024-05-01 08:58] VITALS: BP 110/57; PULSE 85; RESP 16; TEMP 36.2; O2SAT 100
--- NOTE | 2024-05-01 09:57 | HO.PSYCHPN ---
Subjective Subjective Date of Service: 05/01/24 Reason For Visit: Schizophrenia Interim History: Says he is feeling better. Still feels he is going to be killed. Per staff ate 75% of breakfast today. Keeping to self. Staying in common areas and refuses to sleep in room. He says he is feeling his worries are subsiding. Refuses leg care from RN. Denies SI. Appears preoccupied. Review of Systems Review of Systems no acute changes Yes all other systems are reviewed and are negative Constitutional: Reports as per HPI Eyes: Reports as per HPI Reports as per HPI Cardiovascular: Reports as per HPI Respiratory: Reports as per HPI Gastrointestinal: Reports as per HPI Genitourinary: Reports as per HPI Musculoskeletal: Reports as per HPI Skin/Breast: Reports as per HPI Reports as per HPI Psychiatric: Reports as per HPI Endocrine: Reports as per HPI Hematologic/Lymphatic: Reports as per HPI Allergic/Immunologic: Reports as per HPI Mental Status Exam Mental Status Exam Narrative: Pt is alert and oriented; behavior is calm; dressed in hospital attire, malodorous, disheveled; mood is described as okay ; eye contact appropriate; Speech is normal rate, volume and not pressured; focused on discharge; paranoid, delusional. denies SI/HI. Insight and judgment are poor. Patient Appearance: Fatigued and Disheveled Patient Orientation: Person, Place and Situation Level of Consciousness: Awake and Lethargic Patient Behavior: Guarded, Talkative, Suspicious, Resistive to Care, Distractible and Good Eye Contact Mood Description: Blunted Affect Description: Blunted Patient Cognition Impaired: No Ability to Follow Directions: Fair Speech Pattern: Spontaneous Speech and Delayed Memory Description: Episodic Impaired Diagnostics Vital Signs (24Hr): Vital Signs - 24 hr 04/30/24 20:00 05/01/24 08:58 Temperature 98.2 F 97.2 F Pulse Rate 87 85 Respiratory Rate 14 16 Blood Pressure 96/53 L 110/57 L Pulse Oximetry 98 100 Oxygen Delivery Method Room Air Room Air BMI result Body Mass Index 25.6 Labs 04/20/24 08:23 04/20/24 08:23 Labs: Laboratory Results - last 48 hr 04/20/24 08:23 Risperidone 1.1 Risperidone &9-Hydroxy 14.0 9-Hydroxy Risperidone 12.9 Imaging Radiology Impressions: ITS Impressions KUB X-Ray 04/25/24 14:00 IMPRESSION: Large stool burden overall. Electronically signed by: Corin Escoto DO 04/25/2024 07:31 PM EST Medications Medications Current Medications Acetaminophen (Acetaminophen 325 Mg Tablet) 650 mg PO Q6H PRN PRN Reason: Headache/Pain Mild Scale (1-3) Al Hydroxide/Mg Hydroxide (Magnesium Hydrox/Alum Hydrox 30 Ml Oral.Susp) 30 ml PO Q6H PRN PRN Reason: Heartburn/Nausea Benzocaine (Throat Lozenge, Medicated Lozenge) 1 lozenge MUCOUS MEM Q2H PRN PRN Reason: Sore Throat Benztropine Mesylate (Benztropine Mesylate 1 Mg Tablet) 1 mg PO DAILY PRN PRN Reason: Extrapyramidal Effects Betamethasone Dipropion Augmented (Betamethasone Dip Aug 0.05% Cr 15 Gm Tube) 1 appl TOPICAL BID LENI; Protocol Last Admin: 05/01/24 09:06 Dose: Not Given Haloperidol Lactate (Haloperidol Lactate 5 Mg/Ml Vial) 5 mg IM DAILY PRN PRN Reason: Psychosis Hydroxyzine HCl (Hydroxyzine Hcl 25 Mg Tablet) 25 mg PO Q6H PRN PRN Reason: Anxiety Lactic Acid (Ammonium Lactate 12 % Cream 140 Gm Tube) 1 appl TOPICAL BID PRN; Protocol PRN Reason: Dry, scaly skin Last Admin: 04/18/24 20:53 Dose: 1 appl Lactulose (Lactulose 20 Gm/30 Ml Solution) 40 gm PO BID LENI Last Admin: 05/01/24 09:06 Dose: Not Given Lorazepam (Lorazepam 0.5 Mg Tablet) 0.5 mg PO BEDTIME LENI Last Admin: 04/30/24 21:36 Dose: Not Given Magnesium Hydroxide (Milk Of Magnesia 30 Ml Oral.Susp) 30 ml PO DAILY PRN PRN Reason: Constipation Nicotine Polacrilex (Nicotine Polacrilex 2 Mg Gum) 4 mg BUCCAL Q2H PRN PRN Reason: Nicotine Cravings Risperidone (Risperidone Oral Kami 1 Mg/Ml Solution) 6 mg PO BEDTIME LENI Last Admin: 04/30/24 21:34 Dose: 6 mg Trazodone HCl (Trazodone Hcl 50 Mg Tablet) 50 mg PO BEDTIME MRX1 PRN PRN Reason: Insomnia Allergies Allergies Allergy/AdvReac Type Severity Reaction Status Date / Time Unable to Assess Allergy Verified 03/25/24 21:15 Assessment & Plan Assessment & Plan (1) Schizophrenia: Status: Acute Code(s): F20.9 - Schizophrenia, unspecified Plan 03/26: risperidone 05/05. collateral from mother. clarify legal circumstance/rolando's order. 03/27: refusing meds, not leaving his chair. urinating in cup beneath blanket. requesting immediate discharge. continue to offer medication. clarify legal circumstance and ability to involuntarily administer medication. diamond warning provided. 03/28: Sitting in chair in milieu. Per nursing, patient urinating in cups under blankets. Patient was notified that he must go to his room to use the toilet and can not urinate in common areas. Patient was able to walk down unit hallway with no assistance. Patient is requesting to have a wheelchair d/t being terrified of falling . Patient stated, I do not have any kind of condition. I am just worried about falling . Patient reports that he has not been eating much due to fear of being poisoned however, he would not elaborate as to who he believes is poisoning him. He reports at home he has been urinating in milk cartons and defecating in trash bags and having his mother dispose of these items. Patient agreed to take 1 mg of Risperdal PO; however, expressed paranoia towards RN about being a different medication/dosage despite being shown packaging. T/W obtained information from patient's mother, Chio; Chio reports patient has not been using the toilet for the past two years due to being afraid that snakes will get him and voices telling him the same. Chio reports, pt is also afraid of walking d/t fear of hitting his head. She reports patient has never been on antipsychotics and has only taken anti-anxiety medications for 3 weeks which patient discontinued. She denies history of inpatient psychiatric hospitalizations. She reports having guardianship due to patient being unable to care for self. 03/29: Observing pacing unit hallway. Keeping to self. Covering self with blanket. Per nursing, pt slept in chair in milieu for 5 hours last night. Refused medications last night and this morning. Pt reports he does not want to sleep in a bed d/t feeling more vulnerable when laying down . Patient reports he does not want to go into the bathroom because he is paranoid that something might happen in there or someone might be waiting for me in there . Pt's 3 day up 03/30/24; he is requesting to be discharged home. 03/30: Observed standing at nurses station throughout shift; not taking redirection from staff to please step away for pt confidentiality. Argumentative. 3 day up today; filed on; pt notified. Pt stated, you can't keep me here. I'm going to jose you and make your head spin 3 times! Your documents are not real! Refused Zyprexa. Per nursing, pt urinated in carton in unit hallway;continues to refuse utilizing bathroom. Per nursing, pt did not eat anything today. 03/31: Pacing in front of nurses station. disheveled, malodorous; encouraged to shower, however pt declined despite being offered shower chair and staff member to wait outside shower room if assistance is needed. Per nursing, pt urinated in cup and sensory room floor last evening. Pt continues to report paranoia regarding using bathroom; pt stated, I'm worried someone will be in the bathroom waiting for me because of who I am . When asked why he believes someone would want to hurt him; pt stated, I can't discuss that . denies SI/HI/VH/AH. He reports not eating d/t concerns that he may be poisoned by someone ; observed drinking water from water bottle. Pt offered Zyprexa PO per court ordered treatment plan; per nursing, pt initially refused then agreed to take. 04/01: Patient continues to stand or pace in front of nurses station. disheveled, malodorous; per nursing, pt urinated in trash in [place] last evening. T/W spoke to patient regarding using restroom on unit; pt continues to report concern that someone can try to kill me because of who I am and who my family is ; when asked why someone would hurt him. Pt stated, because we are well known in [place] and they may hurt me because of it ; pt unable to specify who they are. denies AH/VH. Pt was offered for staff member to examine restroom and stand outside to assure no one is waiting for him; however pt continues to decline. Patient stated, I feel like you guys are playing a psychotic game with me or that they are doing this for their entertainment . 04/02: Patient continues to present similar to days prior. He continues to report paranoia regarding using restroom, shower and eating. Pt stated, I urinated in the trash early in the morning ; he continues to state he will consider using restroom. Pt reports taking bites of breakfast this morning. denies any side effects from Zyprexa other than feeling tired; pt stated, I am feeling a bit calmer . Per nursing, pt slept in chair in [facility] for 7 hours last night. Will continue to build rapport. 04/03: Patient continues to report paranoia regarding using restroom, shower and eating. Pt was offered single room d/t continuous urinating in [facility]; pt declined. Pt stated, I don't think a single room would help. I'm still having the same thoughts . Pt reports he has increased his fluid intake with water, juice and milk; however he continues to report only take a few bites of food. 04/04: Discussed medications increases with pt which he refuses at this time. Focused on discharge, and where his belongings are being stored at this time. 04/05: Patient declined to meet with T/W in unit office; pt stated, I don't feel comfortable going into the office because I think someone would hurt me ; pt reassured no one would hurt him, however, he continued to decline. Met with pt in unit hallway. Patient reports he did not urinate yesterday; he was educated regarding medical complications that can occur with decreased intake of fluids and food. Pt stated, I know but it's not like I'm dying . Pt refused labs. Discussed various solutions of pt feeling safe to use restroom or shower. pt stated, I'm still worried someone is going to hurt me. I'm not sure who, but it's because I am along the lines of royalty and it's putting me in harms way if I use the bathroom, shower or eat . Pt reporting zyprexa is making him too tired ; plan to DC. start risperidal 1mg PO daily with plan to switch to PLAZA; discussed with pt. T/W spoke to patient's mother, Chio, who reports has not left the house in 2 years and has not bathed or used the restroom in a year. She expressed concern over his wellbeing of not drinking or eating. She plans on calling patient to encourage him increase fluid intake. 04/07: Pt continues similar to days prior. Pt reports he did not urinate yesterday. Refused labs again. Hearing was held today; Pt was commited. T/W informed pt of plan to increase risperidal. Pt to receive additional risperidal 1mg PO bedtime dose to night. Starting tomorrow, Increase: Risperidal 2mg PO bedtime. 04/08: Staying in common area, however, keeping to self. per nursing, pt urinated in multiple cups last evening in common area and declined to use restroom. Pt reports feeling frustrated about not being discharged ; T/W discussed plan with medications again. Pt requesting to be discharged home today; asking multiple staff. Pt continues to report paranoia regarding using toilet, shower, eating/drinking. Encouraged to allow labs. 04/10: No changes. Encourage ongoing med adherence especially for Risperdal. Also encourage elevating legs as per hospitalist evaluation on 04/06/2024. Ordering an extra large compression stockings. 04/11: Met with pt in unit office. Continues to stay in common areas. paranoid. Pt discussed paranoia regarding eating; pt stated, how do you know someone isn't trying to poison me? People in this hospital. Per nursing, ate 10% of one meal yesterday and 25% of one meal today, has not eaten anything otherwise. Patient continues to refuse labs; shower (pt reports he has not bathed himself since admission and refusing to change clothes). Declining to use bathroom. perseverating on discharge to go back home where I can continue doing these things and be more comfortable . Continues similar to days prior; ? possible cheeking, will switch to risperidal liquid. Increase dose to Risperidal 3mg PO bedtime. Wound consult ordered for bilateral legs 04/12: Met with pt in unit office. Continues to stay in common areas; declining to go into assigned room for any reason. He continues paranoid, anxious, fearful. Pt argumentative and requesting discharge since he has been able to meet with T/W in the unit office for the past 2 days. Discussed that pt does not allow for the door to be closed, continues with paranoia stating my safety is a concern if the door is closed . Declining bathroom and shower. Discussed change of medication to liquid d/t possible cheeking. 04/13: Pt continues paranoid, anxious, fearful. T/W and social work case manager, Sabi, encouraged pt to walk into his room; lights were turned on to show no one was in the room and it was safe; however, pt continues to make paranoid statements of someone waiting to hurt him. Pt reports he did not urinate yesterday; discussed the importance of drinking fluids and eating meals. Per nursing, pt ate 5% of breakfast yesterday and declined lunch and dinner. Continue current tx plan. 04/14: Pt continues similar to days prior. Refusing to cross threshold into any room other than side office. Continues concerned that someone may hurt him if he goes into a room even if staff are with him. Per nursing, pt has not eaten or drank fluids today. He did urinate in trash can in the [facility] and continues to refuse using restroom; despite having access to multiple bathrooms. Continue current tx plan. 04/15: T/W and RN attempting to reassure patient of his safety to be able to cross threshold into his room. Continues to believe someone may be hiding in the room to hurt him. Argumentative, attempting to change topic when asked questions about challenging his anxiety and paranoia. Per nursing, pt continues to have poor intake. Pt reports he did not urinate yesterday 04/17: No changes 04/18: Met with Dr. Lorenzana present. Pt continues to decline to go into bedroom or restroom; was willing to meet in side office with door open. He continues to discuss his anxiety and paranoia regarding being attacked by someone or snakes . Pt states he does not believe to have a mental illness ; requesting to be discharged home. Pt re-educated on goal of treatment. 04/19: Pt continues similar to days prior. Patient was given single room however pt continues to decline to enter room despite not having a room mate. He reports not urinating or having a bowel movement yesterday or today. Risperidal increased 4mg PO bedtime; pt aware. Labs ordered for tomorrow for monitoring of medical status while being treated with antipsychotics medications; informed consent obtained from guardian and patient is aware that informed consent was obtained. 04/20: pt continues to decline to enter his single room. Chair was placed between hallway and bedroom threshold; pt stated, I'm not going in there because I'm worried I might if I sit down . Continues with paranoid delusions. denies any side effects from increase in risperidal. encouraged to take Ativan to help with anxiety. Declined to go into his room to receive leg treatment. Declined to use restroom. 04/21: Continues with paranoid delusions; pt stated, I won't go in there because someone wants to kill me. I don't know who exactly. I know this from the narrative I hear and the symbolism I see on TV and commercial trucks . Declined to go into his room to receive leg treatment. Declined to use restroom. Eating/drinking minimally. Spoke with patient's mother and guardian, Chio, via phone. Reviewed current treatment plan and labs. 04/22: Patient continues similar to days prior. Continues with paranoid delusions; Declined to go into his room to receive leg treatment. Declined to use restroom. Eating/drinking minimally. Patient encouraged to challenge anxiety. 04/23 continue tx. 04/24 continue tx. increase risperidone to 6mg po qhs. 04/25: Continues paranoid and delusional. Refusing to go into room; pt stated, If I go in there I can be hurt with or without knowing ; when asked to elaborate, pt stated, they might hurt me, without me knowing I was hurt . Declining to use bathroom; observed to have distended abdomen, KUB ordered, pt was willing to have imaging done; awaiting results. Pt was willing to go into treatment room to use bath wipes and clean himself with RN present. Ordered Lactulose to assist with constipation; pt states he will consider taking this. 04/26: Continues paranoid and delusional. Refusing to go into room, bathroom or use commode in room; urinated in unit hallway. Refused Lactulose this morning despite encouragement. Continue current tx plan. 04/27: Continue current regimen and plans 04/28/24 Cont risp monitor response cont behavioral plan for helping re ability to lie down to enter a room encourage inc liquids latulose enema if needed 04/29: Keeping to self. urinated in trash bin in unit office. continues to refuse to go into bedroom or bathroom. offered commode and staff bathroom in unit hallway; however continues to decline. paranoid, delusional. Refusing lactulose despite education and no BM. 04/30: Continue current management and treatment plan. 05/01: Continue current management and treatment plan. Reason for continued inpatient stay Substantial Risk for: harm to self, inability to function and rapid decompensation Time Spent With Patient Time: Total time managing care of this patient today ____ minutes.
[2024-05-01 20:00] VITALS: BP 100/59; PULSE 91; RESP 16; TEMP 36.8; O2SAT 98
[2024-05-01] MEDS: risperiDONE Oral Sol 1 MG/ML SOLUTION 6 MG PO (21:27)
[2024-05-02 09:03] VITALS: BP 112/67; PULSE 85; RESP 15; TEMP 36.6; O2SAT 99
--- NOTE | 2024-05-02 09:29 | HO.PSYCHPN ---
Subjective Subjective Date of Service: 05/02/24 Reason For Visit: Schizophrenia Subjective Notes: Section 8 Interim History: Reviewed with Dr. Lorenzana. Keeping to self. Continues to refuse to enter bed room. He continues to report paranoia of someone trying to kill me if I go into the room ; pt encouraged to take one step over threshold, however, declined to do so; discussed increase in risperdal. Risperidal increased to 8mg PO bedtime. Patient reports having a bowel movement over the weekend but states he had the commode moved to door threshold so that his legs were outside the room. Patient reports he feels my paranoia is less but is unable to give examples of what has changed. Patient reports cold symptoms; allowed for covid/flu/rsv swab, which are negative; declined medication for cold symptoms. Medication Compliance: Intermittent Side effects from medications: No Attending Groups: No Review of Systems Constitutional: Reports as per HPI Eyes: Reports as per HPI Reports as per HPI Cardiovascular: Reports as per HPI Respiratory: Reports as per HPI Gastrointestinal: Reports as per HPI Genitourinary: Reports as per HPI Musculoskeletal: Reports as per HPI Skin/Breast: Reports as per HPI Reports as per HPI Psychiatric: Reports as per HPI Endocrine: Reports as per HPI Hematologic/Lymphatic: Reports as per HPI Allergic/Immunologic: Reports as per HPI Mental Status Exam Mental Status Exam Narrative: Pt is alert and oriented; behavior is calm; dressed in hospital attire, malodorous, disheveled; mood is described as okay ; eye contact appropriate; Speech is normal rate, volume and not pressured; focused on discharge; paranoid, delusional. denies SI/HI. Insight and judgment are poor. Diagnostics Vital Signs (24Hr): Vital Signs - 24 hr 05/01/24 20:00 05/02/24 09:03 Temperature 98.3 F 97.8 F Pulse Rate 91 85 Respiratory Rate 16 15 Blood Pressure 100/59 L 112/67 Pulse Oximetry 98 99 Oxygen Delivery Method Room Air Room Air BMI result Body Mass Index 25.6 Labs 04/20/24 08:23 04/20/24 08:23 Imaging Radiology Impressions: ITS Impressions KUB X-Ray 04/25/24 14:00 IMPRESSION: Large stool burden overall. Electronically signed by: Corin Escoto DO 04/25/2024 07:31 PM EST Medications Medications Current Medications Acetaminophen (Acetaminophen 325 Mg Tablet) 650 mg PO Q6H PRN PRN Reason: Headache/Pain Mild Scale (1-3) Al Hydroxide/Mg Hydroxide (Magnesium Hydrox/Alum Hydrox 30 Ml Oral.Susp) 30 ml PO Q6H PRN PRN Reason: Heartburn/Nausea Benzocaine (Throat Lozenge, Medicated Lozenge) 1 lozenge MUCOUS MEM Q2H PRN PRN Reason: Sore Throat Benztropine Mesylate (Benztropine Mesylate 1 Mg Tablet) 1 mg PO DAILY PRN PRN Reason: Extrapyramidal Effects Betamethasone Dipropion Augmented (Betamethasone Dip Aug 0.05% Cr 15 Gm Tube) 1 appl TOPICAL BID LENI; Protocol Last Admin: 05/02/24 09:05 Dose: Not Given Haloperidol Lactate (Haloperidol Lactate 5 Mg/Ml Vial) 5 mg IM DAILY PRN PRN Reason: Psychosis Hydroxyzine HCl (Hydroxyzine Hcl 25 Mg Tablet) 25 mg PO Q6H PRN PRN Reason: Anxiety Lactic Acid (Ammonium Lactate 12 % Cream 140 Gm Tube) 1 appl TOPICAL BID PRN; Protocol PRN Reason: Dry, scaly skin Last Admin: 04/18/24 20:53 Dose: 1 appl Lactulose (Lactulose 20 Gm/30 Ml Solution) 40 gm PO BID [facility] Last Admin: 05/02/24 09:05 Dose: Not Given Lorazepam (Lorazepam 0.5 Mg Tablet) 0.5 mg PO BEDTIME LENI Last Admin: 05/01/24 21:31 Dose: Not Given Magnesium Hydroxide (Milk Of Magnesia 30 Ml Oral.Susp) 30 ml PO DAILY PRN PRN Reason: Constipation Nicotine Polacrilex (Nicotine Polacrilex 2 Mg Gum) 4 mg BUCCAL Q2H PRN PRN Reason: Nicotine Cravings Risperidone (Risperidone Oral Kami 1 Mg/Ml Solution) 6 mg PO BEDTIME [facility] Last Admin: 05/01/24 21:27 Dose: 6 mg Trazodone HCl (Trazodone Hcl 50 Mg Tablet) 50 mg PO BEDTIME MRX1 PRN PRN Reason: Insomnia Allergies Allergies Allergy/AdvReac Type Severity Reaction Status Date / Time Unable to Assess Allergy Verified 03/25/24 21:15 Assessment & Plan Assessment & Plan (1) Schizophrenia: Status: Acute Code(s): F20.9 - Schizophrenia, unspecified Plan 03/26: risperidone /. collateral from mother. clarify legal circumstance/rolando's order. 03/27: refusing meds, not leaving his chair. urinating in cup beneath blanket. requesting immediate discharge. continue to offer medication. clarify legal circumstance and ability to involuntarily administer medication. diamond warning provided. 03/28: Sitting in chair in milieu. Per nursing, patient urinating in cups under blankets. Patient was notified that he must go to his room to use the toilet and can not urinate in common areas. Patient was able to walk down unit hallway with no assistance. Patient is requesting to have a wheelchair d/t being terrified of falling . Patient stated, I do not have any kind of condition. I am just worried about falling . Patient reports that he has not been eating much due to fear of being poisoned however, he would not elaborate as to who he believes is poisoning him. He reports at home he has been urinating in milk cartons and defecating in trash bags and having his mother dispose of these items. Patient agreed to take 1 mg of Risperdal PO; however, expressed paranoia towards RN about being a different medication/dosage despite being shown packaging. T/W obtained information from patient's mother, Chio; Chio reports patient has not been using the toilet for the past two years due to being afraid that snakes will get him and voices telling him the same. Chio reports, pt is also afraid of walking d/t fear of hitting his head. She reports patient has never been on antipsychotics and has only taken anti-anxiety medications for 3 weeks which patient discontinued. She denies history of inpatient psychiatric hospitalizations. She reports having guardianship due to patient being unable to care for self. 03/29: Observing pacing unit hallway. Keeping to self. Covering self with blanket. Per nursing, pt slept in chair in milieu for 5 hours last night. Refused medications last night and this morning. Pt reports he does not want to sleep in a bed d/t feeling more vulnerable when laying down . Patient reports he does not want to go into the bathroom because he is paranoid that something might happen in there or someone might be waiting for me in there . Pt's 3 day up 03/30/24; he is requesting to be discharged home. 03/30: Observed standing at nurses station throughout shift; not taking redirection from staff to please step away for pt confidentiality. Argumentative. 3 day up today; filed on; pt notified. Pt stated, you can't keep me here. I'm going to jose you and make your head spin 3 times! Your documents are not real! Refused Zyprexa. Per nursing, pt urinated in carton in unit hallway;continues to refuse utilizing bathroom. Per nursing, pt did not eat anything today. 03/31: Pacing in front of nurses station. disheveled, malodorous; encouraged to shower, however pt declined despite being offered shower chair and staff member to wait outside shower room if assistance is needed. Per nursing, pt urinated in cup and sensory room floor last evening. Pt continues to report paranoia regarding using bathroom; pt stated, I'm worried someone will be in the bathroom waiting for me because of who I am . When asked why he believes someone would want to hurt him; pt stated, I can't discuss that . denies SI/HI/VH/AH. He reports not eating d/t concerns that he may be poisoned by someone ; observed drinking water from water bottle. Pt offered Zyprexa PO per court ordered treatment plan; per nursing, pt initially refused then agreed to take. 04/01: Patient continues to stand or pace in front of nurses station. disheveled, malodorous; per nursing, pt urinated in trash in mileu last evening. T/W spoke to patient regarding using restroom on unit; pt continues to report concern that someone can try to kill me because of who I am and who my family is ; when asked why someone would hurt him. Pt stated, because we are well known in [place] and they may hurt me because of it ; pt unable to specify who they are. denies AH/VH. Pt was offered for staff member to examine restroom and stand outside to assure no one is waiting for him; however pt continues to decline. Patient stated, I feel like you guys are playing a psychotic game with me or that they are doing this for their entertainment . 04/02: Patient continues to present similar to days prior. He continues to report paranoia regarding using restroom, shower and eating. Pt stated, I urinated in the trash early in the morning ; he continues to state he will consider using restroom. Pt reports taking bites of breakfast this morning. denies any side effects from Zyprexa other than feeling tired; pt stated, I am feeling a bit calmer . Per nursing, pt slept in chair in [facility] for 7 hours last night. Will continue to build rapport. 04/03: Patient continues to report paranoia regarding using restroom, shower and eating. Pt was offered single room d/t continuous urinating in [facility]; pt declined. Pt stated, I don't think a single room would help. I'm still having the same thoughts . Pt reports he has increased his fluid intake with water, juice and milk; however he continues to report only take a few bites of food. 04/04: Discussed medications increases with pt which he refuses at this time. Focused on discharge, and where his belongings are being stored at this time. 04/05: Patient declined to meet with T/W in unit office; pt stated, I don't feel comfortable going into the office because I think someone would hurt me ; pt reassured no one would hurt him, however, he continued to decline. Met with pt in unit hallway. Patient reports he did not urinate yesterday; he was educated regarding medical complications that can occur with decreased intake of fluids and food. Pt stated, I know but it's not like I'm dying . Pt refused labs. Discussed various solutions of pt feeling safe to use restroom or shower. pt stated, I'm still worried someone is going to hurt me. I'm not sure who, but it's because I am along the lines of royalty and it's putting me in harms way if I use the bathroom, shower or eat . Pt reporting zyprexa is making him too tired ; plan to DC. start risperidal 1mg PO daily with plan to switch to PLAZA; discussed with pt. T/W spoke to patient's mother, Chio, who reports has not left the house in 2 years and has not bathed or used the restroom in a year. She expressed concern over his wellbeing of not drinking or eating. She plans on calling patient to encourage him increase fluid intake. 04/07: Pt continues similar to days prior. Pt reports he did not urinate yesterday. Refused labs again. Hearing was held today; Pt was commited. T/W informed pt of plan to increase risperidal. Pt to receive additional risperidal 1mg PO bedtime dose to night. Starting tomorrow, Increase: Risperidal 2mg PO bedtime. 04/08: Staying in common area, however, keeping to self. per nursing, pt urinated in multiple cups last evening in common area and declined to use restroom. Pt reports feeling frustrated about not being discharged ; T/W discussed plan with medications again. Pt requesting to be discharged home today; asking multiple staff. Pt continues to report paranoia regarding using toilet, shower, eating/drinking. Encouraged to allow labs. 04/10: No changes. Encourage ongoing med adherence especially for Risperdal. Also encourage elevating legs as per hospitalist evaluation on 04/06/2024. Ordering an extra large compression stockings. 04/11: Met with pt in unit office. Continues to stay in common areas. paranoid. Pt discussed paranoia regarding eating; pt stated, how do you know someone isn't trying to poison me? People in this hospital. Per nursing, ate 10% of one meal yesterday and 25% of one meal today, has not eaten anything otherwise. Patient continues to refuse labs; shower (pt reports he has not bathed himself since admission and refusing to change clothes). Declining to use bathroom. perseverating on discharge to go back home where I can continue doing these things and be more comfortable . Continues similar to days prior; ? possible cheeking, will switch to risperidal liquid. Increase dose to Risperidal 3mg PO bedtime. Wound consult ordered for bilateral legs 04/12: Met with pt in unit office. Continues to stay in common areas; declining to go into assigned room for any reason. He continues paranoid, anxious, fearful. Pt argumentative and requesting discharge since he has been able to meet with T/W in the unit office for the past 2 days. Discussed that pt does not allow for the door to be closed, continues with paranoia stating my safety is a concern if the door is closed . Declining bathroom and shower. Discussed change of medication to liquid d/t possible cheeking. 04/13: Pt continues paranoid, anxious, fearful. T/W and social sciences chair, Sabi, encouraged pt to walk into his room; lights were turned on to show no one was in the room and it was safe; however, pt continues to make paranoid statements of someone waiting to hurt him. Pt reports he did not urinate yesterday; discussed the importance of drinking fluids and eating meals. Per nursing, pt ate 5% of breakfast yesterday and declined lunch and dinner. Continue current tx plan. 04/14: Pt continues similar to days prior. Refusing to cross threshold into any room other than side office. Continues concerned that someone may hurt him if he goes into a room even if staff are with him. Per nursing, pt has not eaten or drank fluids today. He did urinate in trash can in the mileu and continues to refuse using restroom; despite having access to multiple bathrooms. Continue current tx plan. 04/15: T/W and RN attempting to reassure patient of his safety to be able to cross threshold into his room. Continues to believe someone may be hiding in the room to hurt him. Argumentative, attempting to change topic when asked questions about challenging his anxiety and paranoia. Per nursing, pt continues to have poor intake. Pt reports he did not urinate yesterday 04/17: No changes 04/18: Met with Dr. Lorenzana present. Pt continues to decline to go into bedroom or restroom; was willing to meet in side office with door open. He continues to discuss his anxiety and paranoia regarding being attacked by someone or snakes . Pt states he does not believe to have a mental illness ; requesting to be discharged home. Pt re-educated on goal of treatment. 04/19: Pt continues similar to days prior. Patient was given single room however pt continues to decline to enter room despite not having a room mate. He reports not urinating or having a bowel movement yesterday or today. Risperidal increased 4mg PO bedtime; pt aware. Labs ordered for tomorrow for monitoring of medical status while being treated with antipsychotics medications; informed consent obtained from guardian and patient is aware that informed consent was obtained. 04/20: pt continues to decline to enter his single room. Chair was placed between hallway and bedroom threshold; pt stated, I'm not going in there because I'm worried I might if I sit down . Continues with paranoid delusions. denies any side effects from increase in risperidal. encouraged to take Ativan to help with anxiety. Declined to go into his room to receive leg treatment. Declined to use restroom. 04/21: Continues with paranoid delusions; pt stated, I won't go in there because someone wants to kill me. I don't know who exactly. I know this from the narrative I hear and the symbolism I see on TV and commercial trucks . Declined to go into his room to receive leg treatment. Declined to use restroom. Eating/drinking minimally. Spoke with patient's mother and guardian, Chio, via phone. Reviewed current treatment plan and labs. 04/22: Patient continues similar to days prior. Continues with paranoid delusions; Declined to go into his room to receive leg treatment. Declined to use restroom. Eating/drinking minimally. Patient encouraged to challenge anxiety. 04/23 continue tx. 04/24 continue tx. increase risperidone to 6mg po qhs. 04/25: Continues paranoid and delusional. Refusing to go into room; pt stated, If I go in there I can be hurt with or without knowing ; when asked to elaborate, pt stated, they might hurt me, without me knowing I was hurt . Declining to use bathroom; observed to have distended abdomen, KUB ordered, pt was willing to have imaging done; awaiting results. Pt was willing to go into treatment room to use bath wipes and clean himself with RN present. Ordered Lactulose to assist with constipation; pt states he will consider taking this. 04/26: Continues paranoid and delusional. Refusing to go into room, bathroom or use commode in room; urinated in unit hallway. Refused Lactulose this morning despite encouragement. Continue current tx plan. 04/27: Continue current regimen and plans 04/28/24 Cont risp monitor response cont behavioral plan for helping re ability to lie down to enter a room encourage inc liquids latulose enema if needed 04/29: Keeping to self. urinated in trash bin in unit office. continues to refuse to go into bedroom or bathroom. offered commode and staff bathroom in unit hallway; however continues to decline. paranoid, delusional. Refusing lactulose despite education and no BM. 04/30: Continue current management and treatment plan. 05/01: Continue current management and treatment plan. 05/02: Keeping to self. Continues to refuse to enter bed room. He continues to report paranoia of someone trying to kill me if I go into the room ; pt encouraged to take one step over threshold, however, declined to do so; discussed increase in risperdal. Risperidal increased to 8mg PO bedtime. Patient reports having a bowel movement over the weekend but states he had the commode moved to door threshold so that his legs were outside the room. Patient reports he feels my paranoia is less but is unable to give examples of what has changed. Patient reports cold symptoms; allowed for covid/flu/rsv swab, which are negative; declined medication for cold symptoms. Patient educated on: diagnosis, medication risk/benefits and therapeutic strategies Reason for continued inpatient stay Substantial Risk for: med/psych decompensation Time Spent With Patient Time: Total time managing care of this patient today _20___ minutes.
[2024-05-02 12:50] LABS: Influenza A PCR NEGATIVE (Negative); Influenza B PCR NEGATIVE (Negative); Resp Syncy Virus RNA Qual PCR NEGATIVE (Negative); SARS COV2 PCR INHOUSE NEGATIVE (Negative)
[2024-05-02 20:00] VITALS: BP 101/63; PULSE 86; RESP 16; TEMP 36.6; O2SAT 99
[2024-05-02] MEDS: risperiDONE Oral Sol 1 MG/ML SOLUTION 8 MG PO (22:13)
--- NOTE | 2024-05-03 09:52 | P.PNPSI_ITS ---
Subjective Subjective Date of Service: 05/03/24 Reason For Visit: Schizophrenia Subjective Notes: Section 8 Interim History: Reviewed with Dr. Lorenzana. Continues similar to days prior. paranoid. delusional. reviewed treatment plan with patient. continues to not use restroom, or enter room. Medication Compliance: Intermittent Side effects from medications: No Attending Groups: No Review of Systems Constitutional: Reports as per HPI Eyes: Reports as per HPI Reports as per HPI Cardiovascular: Reports as per HPI Respiratory: Reports as per HPI Gastrointestinal: Reports as per HPI Genitourinary: Reports as per HPI Musculoskeletal: Reports as per HPI Skin/Breast: Reports as per HPI Reports as per HPI Psychiatric: Reports as per HPI Endocrine: Reports as per HPI Hematologic/Lymphatic: Reports as per HPI Allergic/Immunologic: Reports as per HPI Mental Status Exam Mental Status Exam Narrative: Pt is alert and oriented; behavior is calm; dressed in hospital attire, malodorous, disheveled; mood is described as okay ; eye contact appropriate; Speech is normal rate, volume and not pressured; focused on discharge; paranoid, delusional. denies SI/HI. Insight and judgment are poor. Diagnostics Vital Signs (24Hr): Vital Signs - 24 hr 05/02/24 20:00 Temperature 97.9 F Pulse Rate 86 Respiratory Rate 16 Blood Pressure 101/63 Pulse Oximetry 99 Oxygen Delivery Method Room Air BMI result Body Mass Index 25.6 Labs 04/20/24 08:23 04/20/24 08:23 Labs: Laboratory Results - last 48 hr 05/02/24 12:00 Influenza Type A (PCR) NEGATIVE Influenza Type B (PCR) NEGATIVE RSV RNA Qual (PCR) NEGATIVE SARS-CoV-2 RNA (RT-PCR) NEGATIVE Imaging Radiology Impressions: ITS Impressions KUB X-Ray 04/25/24 14:00 IMPRESSION: Large stool burden overall. Electronically signed by: Corin Escoto DO 04/25/2024 07:31 PM [facility] [place], [place] Medications Medications Current Medications Acetaminophen (Acetaminophen 325 Mg Tablet) 650 mg PO Q6H PRN PRN Reason: Headache/Pain Mild Scale (1-3) Al Hydroxide/Mg Hydroxide (Magnesium Hydrox/Alum Hydrox 30 Ml Oral.Susp) 30 ml PO Q6H PRN PRN Reason: Heartburn/Nausea Benzocaine (Throat Lozenge, Medicated Lozenge) 1 lozenge MUCOUS MEM Q2H PRN PRN Reason: Sore Throat Benztropine Mesylate (Benztropine Mesylate 1 Mg Tablet) 1 mg PO DAILY PRN PRN Reason: Extrapyramidal Effects Betamethasone Dipropion Augmented (Betamethasone Dip Aug 0.05% Cr 15 Gm Tube) 1 appl TOPICAL BID LENI; Protocol Last Admin: 05/03/24 08:48 Dose: Not Given Haloperidol Lactate (Haloperidol Lactate 5 Mg/Ml Vial) 5 mg IM DAILY PRN PRN Reason: Psychosis Hydroxyzine HCl (Hydroxyzine Hcl 25 Mg Tablet) 25 mg PO Q6H PRN PRN Reason: Anxiety Lactic Acid (Ammonium Lactate 12 % Cream 140 Gm Tube) 1 appl TOPICAL BID PRN; Protocol PRN Reason: Dry, scaly skin Last Admin: 04/18/24 20:53 Dose: 1 appl Lactulose (Lactulose 20 Gm/30 Ml Solution) 40 gm PO BID LENI Last Admin: 05/03/24 08:48 Dose: Not Given Lorazepam (Lorazepam 0.5 Mg Tablet) 0.5 mg PO BEDTIME [facility] Last Admin: 05/02/24 22:02 Dose: Not Given Magnesium Hydroxide (Milk Of Magnesia 30 Ml Oral.Susp) 30 ml PO DAILY PRN PRN Reason: Constipation Nicotine Polacrilex (Nicotine Polacrilex 2 Mg Gum) 4 mg BUCCAL Q2H PRN PRN Reason: Nicotine Cravings Risperidone (Risperidone Oral Kami 1 Mg/Ml Solution) 8 mg PO BEDTIME [facility] Last Admin: 05/02/24 22:13 Dose: 8 mg Trazodone HCl (Trazodone Hcl 50 Mg Tablet) 50 mg PO BEDTIME MRX1 PRN PRN Reason: Insomnia Allergies Allergies Allergy/AdvReac Type Severity Reaction Status Date / Time Unable to Assess Allergy Verified 03/25/24 21:15 Assessment & Plan Assessment & Plan (1) Schizophrenia: Status: Acute Code(s): F20.9 - Schizophrenia, unspecified Plan 03/26: risperidone /. collateral from mother. clarify legal circumstance/rolando's order. 03/27: refusing meds, not leaving his chair. urinating in cup beneath blanket. requesting immediate discharge. continue to offer medication. clarify legal circumstance and ability to involuntarily administer medication. diamond warning provided. 03/28: Sitting in chair in milieu. Per nursing, patient urinating in cups under blankets. Patient was notified that he must go to his room to use the toilet and can not urinate in common areas. Patient was able to walk down unit hallway with no assistance. Patient is requesting to have a wheelchair d/t being terrified of falling . Patient stated, I do not have any kind of condition. I am just worried about falling . Patient reports that he has not been eating much due to fear of being poisoned however, he would not elaborate as to who he believes is poisoning him. He reports at home he has been urinating in milk cartons and defecating in trash bags and having his mother dispose of these items. Patient agreed to take 1 mg of Risperdal PO; however, expressed paranoia towards RN about being a different medication/dosage despite being shown packaging. T/W obtained information from patient's mother, Chio; Chio reports patient has not been using the toilet for the past two years due to being afraid that snakes will get him and voices telling him the same. Chio reports, pt is also afraid of walking d/t fear of hitting his head. She reports patient has never been on antipsychotics and has only taken anti-anxiety medications for 3 weeks which patient discontinued. She denies history of inpatient psychiatric hospitalizations. She reports having guardianship due to patient being unable to care for self. 03/29: Observing pacing unit hallway. Keeping to self. Covering self with blanket. Per nursing, pt slept in chair in milieu for 5 hours last night. Refused medications last night and this morning. Pt reports he does not want to sleep in a bed d/t feeling more vulnerable when laying down . Patient reports he does not want to go into the bathroom because he is paranoid that something might happen in there or someone might be waiting for me in there . Pt's 3 day up 03/30/24; he is requesting to be discharged home. 03/30: Observed standing at nurses station throughout shift; not taking redirection from staff to please step away for pt confidentiality. Argumentative. 3 day up today; filed on; pt notified. Pt stated, you can't keep me here. I'm going to jose you and make your head spin 3 times! Your documents are not real! Refused Zyprexa. Per nursing, pt urinated in carton in unit hallway;continues to refuse utilizing bathroom. Per nursing, pt did not eat anything today. 03/31: Pacing in front of nurses station. disheveled, malodorous; encouraged to shower, however pt declined despite being offered shower chair and staff member to wait outside shower room if assistance is needed. Per nursing, pt urinated in cup and sensory room floor last evening. Pt continues to report paranoia regarding using bathroom; pt stated, I'm worried someone will be in the bathroom waiting for me because of who I am . When asked why he believes someone would want to hurt him; pt stated, I can't discuss that . denies SI/HI/VH/AH. He reports not eating d/t concerns that he may be poisoned by someone ; observed drinking water from water bottle. Pt offered Zyprexa PO per court ordered treatment plan; per nursing, pt initially refused then agreed to take. 04/01: Patient continues to stand or pace in front of nurses station. disheveled, malodorous; per nursing, pt urinated in trash in mileu last evening. T/W spoke to patient regarding using restroom on unit; pt continues to report concern that someone can try to kill me because of who I am and who my family is ; when asked why someone would hurt him. Pt stated, because we are well known in [place] and they may hurt me because of it ; pt unable to specify who they are. denies AH/VH. Pt was offered for staff member to examine restroom and stand outside to assure no one is waiting for him; however pt continues to decline. Patient stated, I feel like you guys are playing a psychotic game with me or that they are doing this for their entertainment . 04/02: Patient continues to present similar to days prior. He continues to report paranoia regarding using restroom, shower and eating. Pt stated, I urinated in the trash early in the morning ; he continues to state he will consider using restroom. Pt reports taking bites of breakfast this morning. denies any side effects from Zyprexa other than feeling tired; pt stated, I am feeling a bit calmer . Per nursing, pt slept in chair in mil for 7 hours last night. Will continue to build rapport. 04/03: Patient continues to report paranoia regarding using restroom, shower and eating. Pt was offered single room d/t continuous urinating in [facility]; pt declined. Pt stated, I don't think a single room would help. I'm still having the same thoughts . Pt reports he has increased his fluid intake with water, juice and milk; however he continues to report only take a few bites of food. 04/04: Discussed medications increases with pt which he refuses at this time. Focused on discharge, and where his belongings are being stored at this time. 04/05: Patient declined to meet with T/W in unit office; pt stated, I don't feel comfortable going into the office because I think someone would hurt me ; pt reassured no one would hurt him, however, he continued to decline. Met with pt in unit hallway. Patient reports he did not urinate yesterday; he was educated regarding medical complications that can occur with decreased intake of fluids and food. Pt stated, I know but it's not like I'm dying . Pt refused labs. Discussed various solutions of pt feeling safe to use restroom or shower. pt stated, I'm still worried someone is going to hurt me. I'm not sure who, but it's because I am along the lines of royalty and it's putting me in harms way if I use the bathroom, shower or eat . Pt reporting zyprexa is making him too tired ; plan to DC. start risperidal 1mg PO daily with plan to switch to PLAZA; discussed with pt. T/W spoke to patient's mother, Chio, who reports has not left the house in 2 years and has not bathed or used the restroom in a year. She expressed concern over his wellbeing of not drinking or eating. She plans on calling patient to encourage him increase fluid intake. 04/07: Pt continues similar to days prior. Pt reports he did not urinate yesterday. Refused labs again. Hearing was held today; Pt was commited. T/W informed pt of plan to increase risperidal. Pt to receive additional risperidal 1mg PO bedtime dose to night. Starting tomorrow, Increase: Risperidal 2mg PO bedtime. 04/08: Staying in common area, however, keeping to self. per nursing, pt urinated in multiple cups last evening in common area and declined to use restroom. Pt reports feeling frustrated about not being discharged ; T/W discussed plan with medications again. Pt requesting to be discharged home today; asking multiple staff. Pt continues to report paranoia regarding using toilet, shower, eating/drinking. Encouraged to allow labs. 04/10: No changes. Encourage ongoing med adherence especially for Risperdal. Also encourage elevating legs as per hospitalist evaluation on 04/06/2024. Ordering an extra large compression stockings. 04/11: Met with pt in unit office. Continues to stay in common areas. paranoid. Pt discussed paranoia regarding eating; pt stated, how do you know someone isn't trying to poison me? People in this hospital. Per nursing, ate 10% of one meal yesterday and 25% of one meal today, has not eaten anything otherwise. Patient continues to refuse labs; shower (pt reports he has not bathed himself since admission and refusing to change clothes). Declining to use bathroom. perseverating on discharge to go back home where I can continue doing these things and be more comfortable . Continues similar to days prior; ? possible cheeking, will switch to risperidal liquid. Increase dose to Risperidal 3mg PO bedtime. Wound consult ordered for bilateral legs 04/12: Met with pt in unit office. Continues to stay in common areas; declining to go into assigned room for any reason. He continues paranoid, anxious, fearful. Pt argumentative and requesting discharge since he has been able to meet with T/W in the unit office for the past 2 days. Discussed that pt does not allow for the door to be closed, continues with paranoia stating my safety is a concern if the door is closed . Declining bathroom and shower. Discussed change of medication to liquid d/t possible cheeking. 04/13: Pt continues paranoid, anxious, fearful. T/W and licensed clinical social worker, Sabi, encouraged pt to walk into his room; lights were turned on to show no one was in the room and it was safe; however, pt continues to make paranoid statements of someone waiting to hurt him. Pt reports he did not urinate yesterday; discussed the importance of drinking fluids and eating meals. Per nursing, pt ate 5% of breakfast yesterday and declined lunch and dinner. Continue current tx plan. 04/14: Pt continues similar to days prior. Refusing to cross threshold into any room other than side office. Continues concerned that someone may hurt him if he goes into a room even if staff are with him. Per nursing, pt has not eaten or drank fluids today. He did urinate in trash can in the mileu and continues to refuse using restroom; despite having access to multiple bathrooms. Continue current tx plan. 04/15: T/W and RN attempting to reassure patient of his safety to be able to cross threshold into his room. Continues to believe someone may be hiding in the room to hurt him. Argumentative, attempting to change topic when asked questions about challenging his anxiety and paranoia. Per nursing, pt continues to have poor intake. Pt reports he did not urinate yesterday 04/17: No changes 04/18: Met with Dr. Lorenzana present. Pt continues to decline to go into bedroom or restroom; was willing to meet in side office with door open. He continues to discuss his anxiety and paranoia regarding being attacked by someone or snakes . Pt states he does not believe to have a mental illness ; requesting to be discharged home. Pt re-educated on goal of treatment. 04/19: Pt continues similar to days prior. Patient was given single room however pt continues to decline to enter room despite not having a room mate. He reports not urinating or having a bowel movement yesterday or today. Risperidal increased 4mg PO bedtime; pt aware. Labs ordered for tomorrow for monitoring of medical status while being treated with antipsychotics medications; informed consent obtained from guardian and patient is aware that informed consent was obtained. 04/20: pt continues to decline to enter his single room. Chair was placed between hallway and bedroom threshold; pt stated, I'm not going in there because I'm worried I might if I sit down . Continues with paranoid delusions. denies any side effects from increase in risperidal. encouraged to take Ativan to help with anxiety. Declined to go into his room to receive leg treatment. Declined to use restroom. 04/21: Continues with paranoid delusions; pt stated, I won't go in there because someone wants to kill me. I don't know who exactly. I know this from the narrative I hear and the symbolism I see on TV and commercial trucks . Declined to go into his room to receive leg treatment. Declined to use restroom. Eating/drinking minimally. Spoke with patient's mother and guardian, Chio, via phone. Reviewed current treatment plan and labs. 04/22: Patient continues similar to days prior. Continues with paranoid delusions; Declined to go into his room to receive leg treatment. Declined to use restroom. Eating/drinking minimally. Patient encouraged to challenge anxiety. 04/23 continue tx. 04/24 continue tx. increase risperidone to 6mg po qhs. 04/25: Continues paranoid and delusional. Refusing to go into room; pt stated, If I go in there I can be hurt with or without knowing ; when asked to elaborate, pt stated, they might hurt me, without me knowing I was hurt . Declining to use bathroom; observed to have distended abdomen, KUB ordered, pt was willing to have imaging done; awaiting results. Pt was willing to go into treatment room to use bath wipes and clean himself with RN present. Ordered Lactulose to assist with constipation; pt states he will consider taking this. 04/26: Continues paranoid and delusional. Refusing to go into room, bathroom or use commode in room; urinated in unit hallway. Refused Lactulose this morning despite encouragement. Continue current tx plan. 04/27: Continue current regimen and plans 04/28/24 Cont risp monitor response cont behavioral plan for helping re ability to lie down to enter a room encourage inc liquids latulose enema if needed 04/29: Keeping to self. urinated in trash bin in unit office. continues to refuse to go into bedroom or bathroom. offered commode and staff bathroom in unit hallway; however continues to decline. paranoid, delusional. Refusing lactulose despite education and no BM. 04/30: Continue current management and treatment plan. 05/01: Continue current management and treatment plan. 05/02: Keeping to self. Continues to refuse to enter bed room. He continues to report paranoia of someone trying to kill me if I go into the room ; pt encouraged to take one step over threshold, however, declined to do so; discussed increase in risperdal. Risperidal increased to 8mg PO bedtime. Patient reports having a bowel movement over the weekend but states he had the commode moved to door threshold so that his legs were outside the room. Patient reports he feels my paranoia is less but is unable to give examples of what has changed. Patient reports cold symptoms; allowed for covid/flu/rsv swab, which are negative; declined medication for cold symptoms. 05/03: Continues similar to days prior. paranoid. delusional. reviewed treatment plan with patient. continues to not use restroom, or enter room. continue current tx plan. Patient educated on: medication risk/benefits Reason for continued inpatient stay Substantial Risk for: med/psych decompensation Time Spent With Patient Time: Total time managing care of this patient today _20___ minutes.
[2024-05-03 20:00] VITALS: BP 97/59; PULSE 83; RESP 14; TEMP 37.1; O2SAT 96
[2024-05-03] MEDS: risperiDONE Oral Sol 1 MG/ML SOLUTION 8 MG PO (22:03)
--- NOTE | 2024-05-04 11:36 | HO.PSYCHPN ---
Subjective Subjective Date of Service: 05/04/24 Reason For Visit: Schizophrenia Subjective Notes: Section [employer] Proxy: Yes Guardianship: Yes Medical Problems Affecting Mental Status: No Interim History: 38 yo with severe impairment in function to point where he won't lie down to sleep or toilet himself- tries to eat minimally so that he won't have bm Nursing has gotten him self toileting with a room entrance comode - keeps his feet in [place]- reports last bm sunday 04/29 Wants to know when he can be dced- told him unlikely until he is more able to manage ADLs independently. Medication Compliance: Yes Side effects from medications: No Attending Groups: Intermittent Review of Systems Acute medical concerns: No Review of Systems: ? constipation- Mental Status Exam Mental Status Exam Patient Appearance: Unkempt Patient Orientation: Person, Place and Situation Level of Consciousness: Awake Patient Behavior: Guarded and Passive Behavior Comments: bizarre appearance wrapped in blanket, sits up with blanket around him in common room to sleep Mood Description: Apathetic Affect Description: Flat Patient Cognition Impaired: No Ability to Follow Directions: Fair (depending on request) Speech Pattern: Clear Hallucinations: None Delusions: Paranoid Ideation and Bizarre Thought Process: Intact and Goal Oriented Thought Content: positive for [place] and positive for Evasive Abnormal Motor Activity Signs and Symptoms: Psychomotor Retardation Judgement: Poor Diagnostics Vital Signs (24Hr): Vital Signs - 24 hr 05/03/24 20:00 Temperature 98.8 F Pulse Rate 83 Respiratory Rate 14 Blood Pressure 97/59 L Pulse Oximetry 96 Oxygen Delivery Method Room Air BMI result Body Mass Index 25.6 Labs 04/20/24 08:23 04/20/24 08:23 Labs: Laboratory Results - last 48 hr 05/02/24 12:00 Influenza Type A (PCR) NEGATIVE Influenza Type B (PCR) NEGATIVE RSV RNA Qual (PCR) NEGATIVE SARS-CoV-2 RNA (RT-PCR) NEGATIVE Imaging Radiology Impressions: ITS Impressions KUB X-Ray 04/25/24 14:00 IMPRESSION: Large stool burden overall. Electronically signed by: Corin Escoto DO 04/25/2024 07:31 PM [facility] [place] Medications Medications Current Medications Acetaminophen (Acetaminophen 325 Mg Tablet) 650 mg PO Q6H PRN PRN Reason: Headache/Pain Mild Scale (1-3) Al Hydroxide/Mg Hydroxide (Magnesium Hydrox/Alum Hydrox 30 Ml Oral.Susp) 30 ml PO Q6H PRN PRN Reason: Heartburn/Nausea Benzocaine (Throat Lozenge, Medicated Lozenge) 1 lozenge MUCOUS MEM Q2H PRN PRN Reason: Sore Throat Benztropine Mesylate (Benztropine Mesylate 1 Mg Tablet) 1 mg PO DAILY PRN PRN Reason: Extrapyramidal Effects Betamethasone Dipropion Augmented (Betamethasone Dip Aug 0.05% Cr 15 Gm Tube) 1 appl TOPICAL BID [facility]; Protocol Last Admin: 05/04/24 08:50 Dose: Not Given Haloperidol Lactate (Haloperidol Lactate 5 Mg/Ml Vial) 5 mg IM DAILY PRN PRN Reason: Psychosis Hydroxyzine HCl (Hydroxyzine Hcl 25 Mg Tablet) 25 mg PO Q6H PRN PRN Reason: Anxiety Lactic Acid (Ammonium Lactate 12 % Cream 140 Gm Tube) 1 appl TOPICAL BID PRN; Protocol PRN Reason: Dry, scaly skin Last Admin: 04/18/24 20:53 Dose: 1 appl Lactulose (Lactulose 20 Gm/30 Ml Solution) 40 gm PO BID [facility] Last Admin: 05/04/24 08:51 Dose: Not Given Magnesium Hydroxide (Milk Of Magnesia 30 Ml Oral.Susp) 30 ml PO DAILY PRN PRN Reason: Constipation Nicotine Polacrilex (Nicotine Polacrilex 2 Mg Gum) 4 mg BUCCAL Q2H PRN PRN Reason: Nicotine Cravings Risperidone (Risperidone Oral Kami 1 Mg/Ml Solution) 8 mg PO BEDTIME [facility] Last Admin: 05/03/24 22:03 Dose: 8 mg Trazodone HCl (Trazodone Hcl 50 Mg Tablet) 50 mg PO BEDTIME MRX1 PRN PRN Reason: Insomnia Allergies Allergies Allergy/AdvReac Type Severity Reaction Status Date / Time Unable to Assess Allergy Verified 03/25/24 21:15 Assessment & Plan Assessment & Plan (1) Schizophrenia: Status: Acute Code(s): F20.9 - Schizophrenia, unspecified Plan 03/26: risperidone 1/2. collateral from mother. clarify legal circumstance/rolando's order. 03/27: refusing meds, not leaving his chair. urinating in cup beneath blanket. requesting immediate discharge. continue to offer medication. clarify legal circumstance and ability to involuntarily administer medication. diamond warning provided. 03/28: Sitting in chair in milieu. Per nursing, patient urinating in cups under blankets. Patient was notified that he must go to his room to use the toilet and can not urinate in common areas. Patient was able to walk down unit hallway with no assistance. Patient is requesting to have a wheelchair d/t being terrified of falling . Patient stated, I do not have any kind of condition. I am just worried about falling . Patient reports that he has not been eating much due to fear of being poisoned however, he would not elaborate as to who he believes is poisoning him. He reports at home he has been urinating in milk cartons and defecating in trash bags and having his mother dispose of these items. Patient agreed to take 1 mg of Risperdal PO; however, expressed paranoia towards RN about being a different medication/dosage despite being shown packaging. T/W obtained information from patient's mother, Chio; Chio reports patient has not been using the toilet for the past two years due to being afraid that snakes will get him and voices telling him the same. Chio reports, pt is also afraid of walking d/t fear of hitting his head. She reports patient has never been on antipsychotics and has only taken anti-anxiety medications for 3 weeks which patient discontinued. She denies history of inpatient psychiatric hospitalizations. She reports having guardianship due to patient being unable to care for self. 03/29: Observing pacing unit hallway. Keeping to self. Covering self with blanket. Per nursing, pt slept in chair in milieu for 5 hours last night. Refused medications last night and this morning. Pt reports he does not want to sleep in a bed d/t feeling more vulnerable when laying down . Patient reports he does not want to go into the bathroom because he is paranoid that something might happen in there or someone might be waiting for me in there . Pt's 3 day up 03/30/24; he is requesting to be discharged home. 03/30: Observed standing at nurses station throughout shift; not taking redirection from staff to please step away for pt confidentiality. Argumentative. 3 day up today; filed on; pt notified. Pt stated, you can't keep me here. I'm going to jose you and make your head spin 3 times! Your documents are not real! Refused Zyprexa. Per nursing, pt urinated in carton in unit hallway;continues to refuse utilizing bathroom. Per nursing, pt did not eat anything today. 03/31: Pacing in front of nurses station. disheveled, malodorous; encouraged to shower, however pt declined despite being offered shower chair and staff member to wait outside shower room if assistance is needed. Per nursing, pt urinated in cup and sensory room floor last evening. Pt continues to report paranoia regarding using bathroom; pt stated, I'm worried someone will be in the bathroom waiting for me because of who I am . When asked why he believes someone would want to hurt him; pt stated, I can't discuss that . denies SI/HI/VH/AH. He reports not eating d/t concerns that he may be poisoned by someone ; observed drinking water from water bottle. Pt offered Zyprexa PO per court ordered treatment plan; per nursing, pt initially refused then agreed to take. 04/01: Patient continues to stand or pace in front of nurses station. disheveled, malodorous; per nursing, pt urinated in trash in mileu last evening. T/W spoke to patient regarding using restroom on unit; pt continues to report concern that someone can try to kill me because of who I am and who my family is ; when asked why someone would hurt him. Pt stated, because we are well known in [place] and they may hurt me because of it ; pt unable to specify who they are. denies AH/VH. Pt was offered for staff member to examine restroom and stand outside to assure no one is waiting for him; however pt continues to decline. Patient stated, I feel like you guys are playing a psychotic game with me or that they are doing this for their entertainment . 04/02: Patient continues to present similar to days prior. He continues to report paranoia regarding using restroom, shower and eating. Pt stated, I urinated in the trash early in the morning ; he continues to state he will consider using restroom. Pt reports taking bites of breakfast this morning. denies any side effects from Zyprexa other than feeling tired; pt stated, I am feeling a bit calmer . Per nursing, pt slept in chair in [facility] for 7 hours last night. Will continue to build rapport. 04/03: Patient continues to report paranoia regarding using restroom, shower and eating. Pt was offered single room d/t continuous urinating in [facility]; pt declined. Pt stated, I don't think a single room would help. I'm still having the same thoughts . Pt reports he has increased his fluid intake with water, juice and milk; however he continues to report only take a few bites of food. 04/04: Discussed medications increases with pt which he refuses at this time. Focused on discharge, and where his belongings are being stored at this time. 04/05: Patient declined to meet with T/W in unit office; pt stated, I don't feel comfortable going into the office because I think someone would hurt me ; pt reassured no one would hurt him, however, he continued to decline. Met with pt in unit hallway. Patient reports he did not urinate yesterday; he was educated regarding medical complications that can occur with decreased intake of fluids and food. Pt stated, I know but it's not like I'm dying . Pt refused labs. Discussed various solutions of pt feeling safe to use restroom or shower. pt stated, I'm still worried someone is going to hurt me. I'm not sure who, but it's because I am along the lines of royalty and it's putting me in harms way if I use the bathroom, shower or eat . Pt reporting zyprexa is making him too tired ; plan to DC. start risperidal 1mg PO daily with plan to switch to PLAZA; discussed with pt. T/W spoke to patient's mother, Chio, who reports has not left the house in 2 years and has not bathed or used the restroom in a year. She expressed concern over his wellbeing of not drinking or eating. She plans on calling patient to encourage him increase fluid intake. 04/07: Pt continues similar to days prior. Pt reports he did not urinate yesterday. Refused labs again. Hearing was held today; Pt was commited. T/W informed pt of plan to increase risperidal. Pt to receive additional risperidal 1mg PO bedtime dose to night. Starting tomorrow, Increase: Risperidal 2mg PO bedtime. 04/08: Staying in common area, however, keeping to self. per nursing, pt urinated in multiple cups last evening in common area and declined to use restroom. Pt reports feeling frustrated about not being discharged ; T/W discussed plan with medications again. Pt requesting to be discharged home today; asking multiple staff. Pt continues to report paranoia regarding using toilet, shower, eating/drinking. Encouraged to allow labs. 04/10: No changes. Encourage ongoing med adherence especially for Risperdal. Also encourage elevating legs as per hospitalist evaluation on 04/06/2024. Ordering an extra large compression stockings. 04/11: Met with pt in unit office. Continues to stay in common areas. paranoid. Pt discussed paranoia regarding eating; pt stated, how do you know someone isn't trying to poison me? People in this hospital. Per nursing, ate 10% of one meal yesterday and 25% of one meal today, has not eaten anything otherwise. Patient continues to refuse labs; shower (pt reports he has not bathed himself since admission and refusing to change clothes). Declining to use bathroom. perseverating on discharge to go back home where I can continue doing these things and be more comfortable . Continues similar to days prior; ? possible cheeking, will switch to risperidal liquid. Increase dose to Risperidal 3mg PO bedtime. Wound consult ordered for bilateral legs 04/12: Met with pt in unit office. Continues to stay in common areas; declining to go into assigned room for any reason. He continues paranoid, anxious, fearful. Pt argumentative and requesting discharge since he has been able to meet with T/W in the unit office for the past 2 days. Discussed that pt does not allow for the door to be closed, continues with paranoia stating my safety is a concern if the door is closed . Declining bathroom and shower. Discussed change of medication to liquid d/t possible cheeking. 04/13: Pt continues paranoid, anxious, fearful. T/W and social work manager, Sabi, encouraged pt to walk into his room; lights were turned on to show no one was in the room and it was safe; however, pt continues to make paranoid statements of someone waiting to hurt him. Pt reports he did not urinate yesterday; discussed the importance of drinking fluids and eating meals. Per nursing, pt ate 5% of breakfast yesterday and declined lunch and dinner. Continue current tx plan. 04/14: Pt continues similar to days prior. Refusing to cross threshold into any room other than side office. Continues concerned that someone may hurt him if he goes into a room even if staff are with him. Per nursing, pt has not eaten or drank fluids today. He did urinate in trash can in the mileu and continues to refuse using restroom; despite having access to multiple bathrooms. Continue current tx plan. 04/15: T/W and RN attempting to reassure patient of his safety to be able to cross threshold into his room. Continues to believe someone may be hiding in the room to hurt him. Argumentative, attempting to change topic when asked questions about challenging his anxiety and paranoia. Per nursing, pt continues to have poor intake. Pt reports he did not urinate yesterday 04/17: No changes 04/18: Met with Dr. Lorenzana present. Pt continues to decline to go into bedroom or restroom; was willing to meet in side office with door open. He continues to discuss his anxiety and paranoia regarding being attacked by someone or snakes . Pt states he does not believe to have a mental illness ; requesting to be discharged home. Pt re-educated on goal of treatment. 04/19: Pt continues similar to days prior. Patient was given single room however pt continues to decline to enter room despite not having a room mate. He reports not urinating or having a bowel movement yesterday or today. Risperidal increased 4mg PO bedtime; pt aware. Labs ordered for tomorrow for monitoring of medical status while being treated with antipsychotics medications; informed consent obtained from guardian and patient is aware that informed consent was obtained. 04/20: pt continues to decline to enter his single room. Chair was placed between hallway and bedroom threshold; pt stated, I'm not going in there because I'm worried I might if I sit down . Continues with paranoid delusions. denies any side effects from increase in risperidal. encouraged to take Ativan to help with anxiety. Declined to go into his room to receive leg treatment. Declined to use restroom. 04/21: Continues with paranoid delusions; pt stated, I won't go in there because someone wants to kill me. I don't know who exactly. I know this from the narrative I hear and the symbolism I see on TV and commercial trucks . Declined to go into his room to receive leg treatment. Declined to use restroom. Eating/drinking minimally. Spoke with patient's mother and guardian, Chio, via phone. Reviewed current treatment plan and labs. 04/22: Patient continues similar to days prior. Continues with paranoid delusions; Declined to go into his room to receive leg treatment. Declined to use restroom. Eating/drinking minimally. Patient encouraged to challenge anxiety. 04/23 continue tx. 04/24 continue tx. increase risperidone to 6mg po qhs. 04/25: Continues paranoid and delusional. Refusing to go into room; pt stated, If I go in there I can be hurt with or without knowing ; when asked to elaborate, pt stated, they might hurt me, without me knowing I was hurt . Declining to use bathroom; observed to have distended abdomen, KUB ordered, pt was willing to have imaging done; awaiting results. Pt was willing to go into treatment room to use bath wipes and clean himself with RN present. Ordered Lactulose to assist with constipation; pt states he will consider taking this. 04/26: Continues paranoid and delusional. Refusing to go into room, bathroom or use commode in room; urinated in unit hallway. Refused Lactulose this morning despite encouragement. Continue current tx plan. 04/27: Continue current regimen and plans 04/28/24 Cont risp monitor response cont behavioral plan for helping re ability to lie down to enter a room encourage inc liquids latulose enema if needed 04/29: Keeping to self. urinated in trash bin in unit office. continues to refuse to go into bedroom or bathroom. offered commode and staff bathroom in unit hallway; however continues to decline. paranoid, delusional. Refusing lactulose despite education and no BM. 04/30: Continue current management and treatment plan. 05/01: Continue current management and treatment plan. 05/02: Keeping to self. Continues to refuse to enter bed room. He continues to report paranoia of someone trying to kill me if I go into the room ; pt encouraged to take one step over threshold, however, declined to do so; discussed increase in risperdal. Risperidal increased to 8mg PO bedtime. Patient reports having a bowel movement over the weekend but states he had the commode moved to door threshold so that his legs were outside the room. Patient reports he feels my paranoia is less but is unable to give examples of what has changed. Patient reports cold symptoms; allowed for covid/flu/rsv swab, which are negative; declined medication for cold symptoms. 05/03: Continues similar to days prior. paranoid. delusional. reviewed treatment plan with patient. continues to not use restroom, or enter room. continue current tx plan. 05/04/24- ongoing bizarre behavior and refusal to do ADLs independently Patient educated on: therapeutic strategies and other (ADLs) Informed Consent: further education needed Reason for continued inpatient stay Substantial Risk for: inability to function and rapid decompensation Time Spent With Patient Time: Total time managing care of this patient today ____ minutes.
[2024-05-04 20:00] VITALS: BP 103/63; PULSE 80; RESP 16; TEMP 36.5; O2SAT 99
[2024-05-04] MEDS: risperiDONE Oral Sol 1 MG/ML SOLUTION 8 MG PO (21:20)
[2024-05-05 10:00] VITALS: BMI 28.5
[2024-05-05 20:00] VITALS: BP 91/52; PULSE 77; RESP 18; TEMP 36.2; O2SAT 98
[2024-05-05] MEDS: risperiDONE Oral Sol 1 MG/ML SOLUTION 8 MG PO (21:14)
[2024-05-05] MEDS: Betamethasone Dip Aug 0.05% Cr 15 GM TUBE 1 APPL TOPICAL (21:23)
--- NOTE | 2024-05-05 21:57 | P.PNPSI_ITS ---
Subjective Subjective Date of Service: 05/05/24 Reason For Visit: Schizophrenia Subjective Notes: Section 8 Interim History: Pt seen has been somewhat less lethargic does walk, will only sit even in sleep. secondary lower ext edema. Pt calm withdrawn stays in public area will not go into bedroom on risp 8 mg Medication Compliance: Intermittent Mental Status Exam Mental Status Exam Patient Appearance: Unkempt Patient Orientation: Person, Place and Situation Level of Consciousness: Awake Patient Behavior: Guarded and Passive Behavior Comments: bizarre appearance wrapped in blanket, sits up with blanket around him in common room to sleep Mood Description: Apathetic Affect Description: Flat Patient Cognition Impaired: No Ability to Follow Directions: Fair (depending on request) Speech Pattern: Clear Hallucinations: None Delusions: Bizarre Thought Process: Intact and Goal Oriented Thought Content: positive for [place] and positive for Evasive Abnormal Motor Activity Signs and Symptoms: Psychomotor Retardation Judgement: Poor Judgement and Insight: odd affect talks about fears and how he became inc withdrawn from the world and only sitting in a chair apathetic regarding this Diagnostics Vital Signs (24Hr): BMI result Body Mass Index 28.5 Labs 04/20/24 08:23 04/20/24 08:23 Imaging Radiology Impressions: ITS Impressions KUB X-Ray 04/25/24 14:00 IMPRESSION: Large stool burden overall. Electronically signed by: Corin Escoto DO 04/25/2024 07:31 PM EST Medications Medications Current Medications Acetaminophen (Acetaminophen 325 Mg Tablet) 650 mg PO Q6H PRN PRN Reason: Headache/Pain Mild Scale (1-3) Al Hydroxide/Mg Hydroxide (Magnesium Hydrox/Alum Hydrox 30 Ml Oral.Susp) 30 ml PO Q6H PRN PRN Reason: Heartburn/Nausea Benzocaine (Throat Lozenge, Medicated Lozenge) 1 lozenge MUCOUS MEM Q2H PRN PRN Reason: Sore Throat Benztropine Mesylate (Benztropine Mesylate 1 Mg Tablet) 1 mg PO DAILY PRN PRN Reason: Extrapyramidal Effects Betamethasone Dipropion Augmented (Betamethasone Dip Aug 0.05% Cr 15 Gm Tube) 1 appl TOPICAL BID LENI; Protocol Last Admin: 05/05/24 21:23 Dose: 1 appl Haloperidol Lactate (Haloperidol Lactate 5 Mg/Ml Vial) 5 mg IM DAILY PRN PRN Reason: Psychosis Hydroxyzine HCl (Hydroxyzine Hcl 25 Mg Tablet) 25 mg PO Q6H PRN PRN Reason: Anxiety Lactic Acid (Ammonium Lactate 12 % Cream 140 Gm Tube) 1 appl TOPICAL BID PRN; Protocol PRN Reason: Dry, scaly skin Last Admin: 04/18/24 20:53 Dose: 1 appl Lactulose (Lactulose 20 Gm/30 Ml Solution) 40 gm PO BID [facility] Last Admin: 05/05/24 09:25 Dose: Not Given Magnesium Hydroxide (Milk Of Magnesia 30 Ml Oral.Susp) 30 ml PO DAILY PRN PRN Reason: Constipation Nicotine Polacrilex (Nicotine Polacrilex 2 Mg Gum) 4 mg BUCCAL Q2H PRN PRN Reason: Nicotine Cravings Risperidone (Risperidone Oral Kami 1 Mg/Ml Solution) 8 mg PO BEDTIME [facility] Last Admin: 05/05/24 21:14 Dose: 8 mg Trazodone HCl (Trazodone Hcl 50 Mg Tablet) 50 mg PO BEDTIME MRX1 PRN PRN Reason: Insomnia Allergies Allergies Allergy/AdvReac Type Severity Reaction Status Date / Time Unable to Assess Allergy Verified 03/25/24 21:15 Assessment & Plan Assessment & Plan (1) Schizophrenia: Status: Acute Code(s): F20.9 - Schizophrenia, unspecified Plan 03/26: risperidone 05/05. collateral from mother. clarify legal circumstance/rolando's order. 03/27: refusing meds, not leaving his chair. urinating in cup beneath blanket. requesting immediate discharge. continue to offer medication. clarify legal circumstance and ability to involuntarily administer medication. diamond warning provided. 03/28: Sitting in chair in milieu. Per nursing, patient urinating in cups under blankets. Patient was notified that he must go to his room to use the toilet and can not urinate in common areas. Patient was able to walk down unit hallway with no assistance. Patient is requesting to have a wheelchair d/t being terrified of falling . Patient stated, I do not have any kind of condition. I am just worried about falling . Patient reports that he has not been eating much due to fear of being poisoned however, he would not elaborate as to who he believes is poisoning him. He reports at home he has been urinating in milk cartons and defecating in trash bags and having his mother dispose of these items. Patient agreed to take 1 mg of Risperdal PO; however, expressed paranoia towards RN about being a different medication/dosage despite being shown packaging. T/W obtained information from patient's mother, Chio; Chio reports patient has not been using the toilet for the past two years due to being afraid that snakes will get him and voices telling him the same. Chio reports, pt is also afraid of walking d/t fear of hitting his head. She reports patient has never been on antipsychotics and has only taken anti-anxiety medications for 3 weeks which patient discontinued. She denies history of inpatient psychiatric hospitalizations. She reports having guardianship due to patient being unable to care for self. 03/29: Observing pacing unit hallway. Keeping to self. Covering self with blanket. Per nursing, pt slept in chair in milieu for 5 hours last night. Refused medications last night and this morning. Pt reports he does not want to sleep in a bed d/t feeling more vulnerable when laying down . Patient reports he does not want to go into the bathroom because he is paranoid that something might happen in there or someone might be waiting for me in there . Pt's 3 day up 03/30/24; he is requesting to be discharged home. 03/30: Observed standing at nurses station throughout shift; not taking redirection from staff to please step away for pt confidentiality. Argumentative. 3 day up today; filed on; pt notified. Pt stated, you can't keep me here. I'm going to jose you and make your head spin 3 times! Your documents are not real! Refused Zyprexa. Per nursing, pt urinated in carton in unit hallway;continues to refuse utilizing bathroom. Per nursing, pt did not eat anything today. 03/31: Pacing in front of nurses station. disheveled, malodorous; encouraged to shower, however pt declined despite being offered shower chair and staff member to wait outside shower room if assistance is needed. Per nursing, pt urinated in cup and sensory room floor last evening. Pt continues to report paranoia regarding using bathroom; pt stated, I'm worried someone will be in the bathroom waiting for me because of who I am . When asked why he believes someone would want to hurt him; pt stated, I can't discuss that . denies SI/HI/VH/AH. He reports not eating d/t concerns that he may be poisoned by someone ; observed drinking water from water bottle. Pt offered Zyprexa PO per court ordered treatment plan; per nursing, pt initially refused then agreed to take. 04/01: Patient continues to stand or pace in front of nurses station. disheveled, malodorous; per nursing, pt urinated in trash in [facility] last evening. T/W spoke to patient regarding using restroom on unit; pt continues to report concern that someone can try to kill me because of who I am and who my family is ; when asked why someone would hurt him. Pt stated, because we are well known in [place] and they may hurt me because of it ; pt unable to specify who they are. denies AH/VH. Pt was offered for staff member to examine restroom and stand outside to assure no one is waiting for him; however pt continues to decline. Patient stated, I feel like you guys are playing a psychotic game with me or that they are doing this for their entertainment . 04/02: Patient continues to present similar to days prior. He continues to report paranoia regarding using restroom, shower and eating. Pt stated, I urinated in the trash early in the morning ; he continues to state he will consider using restroom. Pt reports taking bites of breakfast this morning. denies any side effects from Zyprexa other than feeling tired; pt stated, I am feeling a bit calmer . Per nursing, pt slept in chair in [facility] for 7 hours last night. Will continue to build rapport. 04/03: Patient continues to report paranoia regarding using restroom, shower and eating. Pt was offered single room d/t continuous urinating in [facility]; pt declined. Pt stated, I don't think a single room would help. I'm still having the same thoughts . Pt reports he has increased his fluid intake with water, juice and milk; however he continues to report only take a few bites of food. 04/04: Discussed medications increases with pt which he refuses at this time. Focused on discharge, and where his belongings are being stored at this time. 04/05: Patient declined to meet with T/W in unit office; pt stated, I don't feel comfortable going into the office because I think someone would hurt me ; pt reassured no one would hurt him, however, he continued to decline. Met with pt in unit hallway. Patient reports he did not urinate yesterday; he was educated regarding medical complications that can occur with decreased intake of fluids and food. Pt stated, I know but it's not like I'm dying . Pt refused labs. Discussed various solutions of pt feeling safe to use restroom or shower. pt stated, I'm still worried someone is going to hurt me. I'm not sure who, but it's because I am along the lines of royalty and it's putting me in harms way if I use the bathroom, shower or eat . Pt reporting zyprexa is making him too tired ; plan to DC. start risperidal 1mg PO daily with plan to switch to PLAZA; discussed with pt. T/W spoke to patient's mother, Chio, who reports has not left the house in 2 years and has not bathed or used the restroom in a year. She expressed concern over his wellbeing of not drinking or eating. She plans on calling patient to encourage him increase fluid intake. 04/07: Pt continues similar to days prior. Pt reports he did not urinate yesterday. Refused labs again. Hearing was held today; Pt was commited. T/W informed pt of plan to increase risperidal. Pt to receive additional risperidal 1mg PO bedtime dose to night. Starting tomorrow, Increase: Risperidal 2mg PO bedtime. 04/08: Staying in common area, however, keeping to self. per nursing, pt urinated in multiple cups last evening in common area and declined to use restroom. Pt reports feeling frustrated about not being discharged ; T/W discussed plan with medications again. Pt requesting to be discharged home today; asking multiple staff. Pt continues to report paranoia regarding using toilet, shower, eating/drinking. Encouraged to allow labs. 04/10: No changes. Encourage ongoing med adherence especially for Risperdal. Also encourage elevating legs as per hospitalist evaluation on 04/06/2024. Ordering an extra large compression stockings. 04/11: Met with pt in unit office. Continues to stay in common areas. paranoid. Pt discussed paranoia regarding eating; pt stated, how do you know someone isn't trying to poison me? People in this hospital. Per nursing, ate 10% of one meal yesterday and 25% of one meal today, has not eaten anything otherwise. Patient continues to refuse labs; shower (pt reports he has not bathed himself since admission and refusing to change clothes). Declining to use bathroom. perseverating on discharge to go back home where I can continue doing these things and be more comfortable . Continues similar to days prior; ? possible cheeking, will switch to risperidal liquid. Increase dose to Risperidal 3mg PO bedtime. Wound consult ordered for bilateral legs 04/12: Met with pt in unit office. Continues to stay in common areas; declining to go into assigned room for any reason. He continues paranoid, anxious, fearful. Pt argumentative and requesting discharge since he has been able to meet with T/W in the unit office for the past 2 days. Discussed that pt does not allow for the door to be closed, continues with paranoia stating my safety is a concern if the door is closed . Declining bathroom and shower. Discussed change of medication to liquid d/t possible cheeking. 04/13: Pt continues paranoid, anxious, fearful. T/W and social services analyst, Sabi, encouraged pt to walk into his room; lights were turned on to show no one was in the room and it was safe; however, pt continues to make paranoid statements of someone waiting to hurt him. Pt reports he did not urinate yesterday; discussed the importance of drinking fluids and eating meals. Per nursing, pt ate 5% of breakfast yesterday and declined lunch and dinner. Continue current tx plan. 04/14: Pt continues similar to days prior. Refusing to cross threshold into any room other than side office. Continues concerned that someone may hurt him if he goes into a room even if staff are with him. Per nursing, pt has not eaten or drank fluids today. He did urinate in trash can in the mileu and continues to refuse using restroom; despite having access to multiple bathrooms. Continue current tx plan. 04/15: T/W and RN attempting to reassure patient of his safety to be able to cross threshold into his room. Continues to believe someone may be hiding in the room to hurt him. Argumentative, attempting to change topic when asked questions about challenging his anxiety and paranoia. Per nursing, pt continues to have poor intake. Pt reports he did not urinate yesterday 04/17: No changes 04/18: Met with Dr. Lorenzana present. Pt continues to decline to go into bedroom or restroom; was willing to meet in side office with door open. He continues to discuss his anxiety and paranoia regarding being attacked by someone or snakes . Pt states he does not believe to have a mental illness ; requesting to be discharged home. Pt re-educated on goal of treatment. 04/19: Pt continues similar to days prior. Patient was given single room however pt continues to decline to enter room despite not having a room mate. He reports not urinating or having a bowel movement yesterday or today. Risperidal increased 4mg PO bedtime; pt aware. Labs ordered for tomorrow for monitoring of medical status while being treated with antipsychotics medications; informed consent obtained from guardian and patient is aware that informed consent was obtained. 04/20: pt continues to decline to enter his single room. Chair was placed between hallway and bedroom threshold; pt stated, I'm not going in there because I'm worried I might if I sit down . Continues with paranoid delusions. denies any side effects from increase in risperidal. encouraged to take Ativan to help with anxiety. Declined to go into his room to receive leg treatment. Declined to use restroom. 04/21: Continues with paranoid delusions; pt stated, I won't go in there because someone wants to kill me. I don't know who exactly. I know this from the narrative I hear and the symbolism I see on TV and commercial trucks . Declined to go into his room to receive leg treatment. Declined to use restroom. Eating/drinking minimally. Spoke with patient's mother and guardian, Chio, via phone. Reviewed current treatment plan and labs. 04/22: Patient continues similar to days prior. Continues with paranoid delusions; Declined to go into his room to receive leg treatment. Declined to use restroom. Eating/drinking minimally. Patient encouraged to challenge anxiety. 04/23 continue tx. 04/24 continue tx. increase risperidone to 6mg po qhs. 04/25: Continues paranoid and delusional. Refusing to go into room; pt stated, If I go in there I can be hurt with or without knowing ; when asked to elaborate, pt stated, they might hurt me, without me knowing I was hurt . Declining to use bathroom; observed to have distended abdomen, KUB ordered, pt was willing to have imaging done; awaiting results. Pt was willing to go into treatment room to use bath wipes and clean himself with RN present. Ordered Lactulose to assist with constipation; pt states he will consider taking this. 04/26: Continues paranoid and delusional. Refusing to go into room, bathroom or use commode in room; urinated in unit hallway. Refused Lactulose this morning despite encouragement. Continue current tx plan. 04/27: Continue current regimen and plans 04/28/24 Cont risp monitor response cont behavioral plan for helping re ability to lie down to enter a room encourage inc liquids latulose enema if needed 04/29: Keeping to self. urinated in trash bin in unit office. continues to refuse to go into bedroom or bathroom. offered commode and staff bathroom in unit hallway; however continues to decline. paranoid, delusional. Refusing lactulose despite education and no BM. 04/30: Continue current management and treatment plan. 05/01: Continue current management and treatment plan. 05/02: Keeping to self. Continues to refuse to enter bed room. He continues to report paranoia of someone trying to kill me if I go into the room ; pt encouraged to take one step over threshold, however, declined to do so; discussed increase in risperdal. Risperidal increased to 8mg PO bedtime. Patient reports having a bowel movement over the weekend but states he had the commode moved to door threshold so that his legs were outside the room. Patient reports he feels my paranoia is less but is unable to give examples of what has changed. Patient reports cold symptoms; allowed for covid/flu/rsv swab, which are negative; declined medication for cold symptoms. 05/03: Continues similar to days prior. paranoid. delusional. reviewed treatment plan with patient. continues to not use restroom, or enter room. continue current tx plan. 05/04/24- ongoing bizarre behavior and refusal to do ADLs independently 05/05/23 Pt states he feels something from med focused on discharge refusing to engage push againt behaviors that are self destructive Reason for continued inpatient stay Substantial Risk for: inability to function, rapid decompensation and med/psych decompensation Time Spent With Patient Time: Total time managing care of this patient today ____ minutes.
--- NOTE | 2024-05-05 22:21 | PC.NURSE ---
Pt's blood pressure low 91/52. Dr Gautam Florentino made aware via tigetext.
--- NOTE | 2024-05-06 09:16 | P.PNPSI_ITS ---
Subjective Subjective Date of Service: 05/06/24 Reason For Visit: Schizophrenia Subjective Notes: Section 8 Interim History: Lingering around nurses station today. Continues to refuse to enter bedroom or bathroom. Pt reports worry he may be killed if entering room; states he saw messages through the TV on [place], but would not go into detail. Discussed changing medication to Haldol d/t Risperidal being ineffective in paranoid delusions. Decrease Risperidal to 4mg PO bedtime. Start: Haldol 5mg PO bedtime Ativan 0.5mg PO bedtime T/W and Dr. Lorenzana spoke to patients mother, Chio, discussed medications and treatment plan. Chio is aware of medication changes. Medication Compliance: Intermittent Side effects from medications: No Attending Groups: No Review of Systems Constitutional: Reports as per HPI Eyes: Reports as per HPI Reports as per HPI Cardiovascular: Reports as per HPI Respiratory: Reports as per HPI Gastrointestinal: Reports as per HPI Genitourinary: Reports as per HPI Musculoskeletal: Reports as per HPI Skin/Breast: Reports as per HPI Reports as per HPI Psychiatric: Reports as per HPI Endocrine: Reports as per HPI Hematologic/Lymphatic: Reports as per HPI Allergic/Immunologic: Reports as per HPI Mental Status Exam Mental Status Exam Narrative: Pt is alert and oriented; behavior is calm; dressed in hospital attire, malodorous, disheveled; mood is described as okay ; eye contact appropriate; Speech is normal rate, volume and not pressured; focused on discharge; paranoid, delusional. denies SI/HI. Insight and judgment are poor. Diagnostics Vital Signs (24Hr): Vital Signs - 24 hr 05/05/24 20:00 Temperature 97.2 F Pulse Rate 77 Respiratory Rate 18 Blood Pressure 91/52 L Pulse Oximetry 98 Oxygen Delivery Method Room Air BMI result Body Mass Index 28.5 Labs 04/20/24 08:23 04/20/24 08:23 Imaging Radiology Impressions: ITS Impressions KUB X-Ray 04/25/24 14:00 IMPRESSION: Large stool burden overall. Electronically signed by: Corin Escoto DO 04/25/2024 07:31 PM [facility] Medications Medications Current Medications Acetaminophen (Acetaminophen 325 Mg Tablet) 650 mg PO Q6H PRN PRN Reason: Headache/Pain Mild Scale (1-3) Al Hydroxide/Mg Hydroxide (Magnesium Hydrox/Alum Hydrox 30 Ml Oral.Susp) 30 ml PO Q6H PRN PRN Reason: Heartburn/Nausea Benzocaine (Throat Lozenge, Medicated Lozenge) 1 lozenge MUCOUS MEM Q2H PRN PRN Reason: Sore Throat Benztropine Mesylate (Benztropine Mesylate 1 Mg Tablet) 1 mg PO DAILY PRN PRN Reason: Extrapyramidal Effects Betamethasone Dipropion Augmented (Betamethasone Dip Aug 0.05% Cr 15 Gm Tube) 1 appl TOPICAL BID [facility]; Protocol Last Admin: 05/06/24 08:23 Dose: Not Given Haloperidol Lactate (Haloperidol Lactate 5 Mg/Ml Vial) 5 mg IM DAILY PRN PRN Reason: Psychosis Hydroxyzine HCl (Hydroxyzine Hcl 25 Mg Tablet) 25 mg PO Q6H PRN PRN Reason: Anxiety Lactic Acid (Ammonium Lactate 12 % Cream 140 Gm Tube) 1 appl TOPICAL BID PRN; Protocol PRN Reason: Dry, scaly skin Last Admin: 04/18/24 20:53 Dose: 1 appl Lactulose (Lactulose 20 Gm/30 Ml Solution) 40 gm PO BID [facility] Last Admin: 05/06/24 08:24 Dose: Not Given Magnesium Hydroxide (Milk Of Magnesia 30 Ml Oral.Susp) 30 ml PO DAILY PRN PRN Reason: Constipation Nicotine Polacrilex (Nicotine Polacrilex 2 Mg Gum) 4 mg BUCCAL Q2H PRN PRN Reason: Nicotine Cravings Risperidone (Risperidone Oral Kami 1 Mg/Ml Solution) 8 mg PO BEDTIME [facility] Last Admin: 05/05/24 21:14 Dose: 8 mg Trazodone HCl (Trazodone Hcl 50 Mg Tablet) 50 mg PO BEDTIME MRX1 PRN PRN Reason: Insomnia Allergies Allergies Allergy/AdvReac Type Severity Reaction Status Date / Time Unable to Assess Allergy Verified 03/25/24 21:15 Assessment & Plan Assessment & Plan (1) Schizophrenia: Status: Acute Code(s): F20.9 - Schizophrenia, unspecified Plan 03/26: risperidone /. collateral from mother. clarify legal circumstance/rolando's order. 03/27: refusing meds, not leaving his chair. urinating in cup beneath blanket. requesting immediate discharge. continue to offer medication. clarify legal circumstance and ability to involuntarily administer medication. diamond warning provided. 03/28: Sitting in chair in milieu. Per nursing, patient urinating in cups under blankets. Patient was notified that he must go to his room to use the toilet and can not urinate in common areas. Patient was able to walk down unit hallway with no assistance. Patient is requesting to have a wheelchair d/t being terrified of falling . Patient stated, I do not have any kind of condition. I am just worried about falling . Patient reports that he has not been eating much due to fear of being poisoned however, he would not elaborate as to who he believes is poisoning him. He reports at home he has been urinating in milk cartons and defecating in trash bags and having his mother dispose of these items. Patient agreed to take 1 mg of Risperdal PO; however, expressed paranoia towards RN about being a different medication/dosage despite being shown packaging. T/W obtained information from patient's mother, Chio; Chio reports patient has not been using the toilet for the past two years due to being afraid that snakes will get him and voices telling him the same. Chio reports, pt is also afraid of walking d/t fear of hitting his head. She reports patient has never been on antipsychotics and has only taken anti-anxiety medications for 3 weeks which patient discontinued. She denies history of inpatient psychiatric hospitalizations. She reports having guardianship due to patient being unable to care for self. 03/29: Observing pacing unit hallway. Keeping to self. Covering self with blanket. Per nursing, pt slept in chair in milieu for 5 hours last night. Refused medications last night and this morning. Pt reports he does not want to sleep in a bed d/t feeling more vulnerable when laying down . Patient reports he does not want to go into the bathroom because he is paranoid that something might happen in there or someone might be waiting for me in there . Pt's 3 day up 03/30/24; he is requesting to be discharged home. 03/30: Observed standing at nurses station throughout shift; not taking redirection from staff to please step away for pt confidentiality. Argumentative. 3 day up today; filed on; pt notified. Pt stated, you can't keep me here. I'm going to jose you and make your head spin 3 times! Your documents are not real! Refused Zyprexa. Per nursing, pt urinated in carton in unit hallway;continues to refuse utilizing bathroom. Per nursing, pt did not eat anything today. 03/31: Pacing in front of nurses station. disheveled, malodorous; encouraged to shower, however pt declined despite being offered shower chair and staff member to wait outside shower room if assistance is needed. Per nursing, pt urinated in cup and sensory room floor last evening. Pt continues to report paranoia regarding using bathroom; pt stated, I'm worried someone will be in the bathroom waiting for me because of who I am . When asked why he believes someone would want to hurt him; pt stated, I can't discuss that . denies SI/HI/VH/AH. He reports not eating d/t concerns that he may be poisoned by someone ; observed drinking water from water bottle. Pt offered Zyprexa PO per court ordered treatment plan; per nursing, pt initially refused then agreed to take. 04/01: Patient continues to stand or pace in front of nurses station. disheveled, malodorous; per nursing, pt urinated in trash in [place] last evening. T/W spoke to patient regarding using restroom on unit; pt continues to report concern that someone can try to kill me because of who I am and who my family is ; when asked why someone would hurt him. Pt stated, because we are well known in [place] and they may hurt me because of it ; pt unable to specify who they are. denies AH/VH. Pt was offered for staff member to examine restroom and stand outside to assure no one is waiting for him; however pt continues to decline. Patient stated, I feel like you guys are playing a psychotic game with me or that they are doing this for their entertainment . 04/02: Patient continues to present similar to days prior. He continues to report paranoia regarding using restroom, shower and eating. Pt stated, I urinated in the trash early in the morning ; he continues to state he will consider using restroom. Pt reports taking bites of breakfast this morning. denies any side effects from Zyprexa other than feeling tired; pt stated, I am feeling a bit calmer . Per nursing, pt slept in chair in [facility] for 7 hours last night. Will continue to build rapport. 04/03: Patient continues to report paranoia regarding using restroom, shower and eating. Pt was offered single room d/t continuous urinating in [facility]; pt declined. Pt stated, I don't think a single room would help. I'm still having the same thoughts . Pt reports he has increased his fluid intake with water, juice and milk; however he continues to report only take a few bites of food. 04/04: Discussed medications increases with pt which he refuses at this time. Focused on discharge, and where his belongings are being stored at this time. 04/05: Patient declined to meet with T/W in unit office; pt stated, I don't feel comfortable going into the office because I think someone would hurt me ; pt reassured no one would hurt him, however, he continued to decline. Met with pt in unit hallway. Patient reports he did not urinate yesterday; he was educated regarding medical complications that can occur with decreased intake of fluids and food. Pt stated, I know but it's not like I'm dying . Pt refused labs. Discussed various solutions of pt feeling safe to use restroom or shower. pt stated, I'm still worried someone is going to hurt me. I'm not sure who, but it's because I am along the lines of royalty and it's putting me in harms way if I use the bathroom, shower or eat . Pt reporting zyprexa is making him too tired ; plan to DC. start risperidal 1mg PO daily with plan to switch to PLAZA; discussed with pt. T/W spoke to patient's mother, Chio, who reports has not left the house in 2 years and has not bathed or used the restroom in a year. She expressed concern over his wellbeing of not drinking or eating. She plans on calling patient to encourage him increase fluid intake. 04/07: Pt continues similar to days prior. Pt reports he did not urinate yesterday. Refused labs again. Hearing was held today; Pt was commited. T/W informed pt of plan to increase risperidal. Pt to receive additional risperidal 1mg PO bedtime dose to night. Starting tomorrow, Increase: Risperidal 2mg PO bedtime. 04/08: Staying in common area, however, keeping to self. per nursing, pt urinated in multiple cups last evening in common area and declined to use restroom. Pt reports feeling frustrated about not being discharged ; T/W discussed plan with medications again. Pt requesting to be discharged home today; asking multiple staff. Pt continues to report paranoia regarding using toilet, shower, eating/drinking. Encouraged to allow labs. 04/10: No changes. Encourage ongoing med adherence especially for Risperdal. Also encourage elevating legs as per hospitalist evaluation on 04/06/2024. Ordering an extra large compression stockings. 04/11: Met with pt in unit office. Continues to stay in common areas. paranoid. Pt discussed paranoia regarding eating; pt stated, how do you know someone isn't trying to poison me? People in this hospital. Per nursing, ate 10% of one meal yesterday and 25% of one meal today, has not eaten anything otherwise. Patient continues to refuse labs; shower (pt reports he has not bathed himself since admission and refusing to change clothes). Declining to use bathroom. perseverating on discharge to go back home where I can continue doing these things and be more comfortable . Continues similar to days prior; ? possible cheeking, will switch to risperidal liquid. Increase dose to Risperidal 3mg PO bedtime. Wound consult ordered for bilateral legs 04/12: Met with pt in unit office. Continues to stay in common areas; declining to go into assigned room for any reason. He continues paranoid, anxious, fearful. Pt argumentative and requesting discharge since he has been able to meet with T/W in the unit office for the past 2 days. Discussed that pt does not allow for the door to be closed, continues with paranoia stating my safety is a concern if the door is closed . Declining bathroom and shower. Discussed change of medication to liquid d/t possible cheeking. 04/13: Pt continues paranoid, anxious, fearful. T/W and social work instructor, Sabi, encouraged pt to walk into his room; lights were turned on to show no one was in the room and it was safe; however, pt continues to make paranoid statements of someone waiting to hurt him. Pt reports he did not urinate yesterday; discussed the importance of drinking fluids and eating meals. Per nursing, pt ate 5% of breakfast yesterday and declined lunch and dinner. Continue current tx plan. 04/14: Pt continues similar to days prior. Refusing to cross threshold into any room other than side office. Continues concerned that someone may hurt him if he goes into a room even if staff are with him. Per nursing, pt has not eaten or drank fluids today. He did urinate in trash can in the mil and continues to refuse using restroom; despite having access to multiple bathrooms. Continue current tx plan. 04/15: T/W and RN attempting to reassure patient of his safety to be able to cross threshold into his room. Continues to believe someone may be hiding in the room to hurt him. Argumentative, attempting to change topic when asked questions about challenging his anxiety and paranoia. Per nursing, pt continues to have poor intake. Pt reports he did not urinate yesterday 04/17: No changes 04/18: Met with Dr. Lorenzana present. Pt continues to decline to go into bedroom or restroom; was willing to meet in side office with door open. He continues to discuss his anxiety and paranoia regarding being attacked by someone or snakes . Pt states he does not believe to have a mental illness ; requesting to be discharged home. Pt re-educated on goal of treatment. 04/19: Pt continues similar to days prior. Patient was given single room however pt continues to decline to enter room despite not having a room mate. He reports not urinating or having a bowel movement yesterday or today. Risperidal increased 4mg PO bedtime; pt aware. Labs ordered for tomorrow for monitoring of medical status while being treated with antipsychotics medications; informed consent obtained from guardian and patient is aware that informed consent was obtained. 04/20: pt continues to decline to enter his single room. Chair was placed between hallway and bedroom threshold; pt stated, I'm not going in there because I'm worried I might if I sit down . Continues with paranoid delusions. denies any side effects from increase in risperidal. encouraged to take Ativan to help with anxiety. Declined to go into his room to receive leg treatment. Declined to use restroom. 04/21: Continues with paranoid delusions; pt stated, I won't go in there because someone wants to kill me. I don't know who exactly. I know this from the narrative I hear and the symbolism I see on TV and commercial trucks . Declined to go into his room to receive leg treatment. Declined to use restroom. Eating/drinking minimally. Spoke with patient's mother and guardian, Chio, via phone. Reviewed current treatment plan and labs. 04/22: Patient continues similar to days prior. Continues with paranoid delusions; Declined to go into his room to receive leg treatment. Declined to use restroom. Eating/drinking minimally. Patient encouraged to challenge anxiety. 04/23 continue tx. 04/24 continue tx. increase risperidone to 6mg po qhs. 04/25: Continues paranoid and delusional. Refusing to go into room; pt stated, If I go in there I can be hurt with or without knowing ; when asked to elaborate, pt stated, they might hurt me, without me knowing I was hurt . Declining to use bathroom; observed to have distended abdomen, KUB ordered, pt was willing to have imaging done; awaiting results. Pt was willing to go into treatment room to use bath wipes and clean himself with RN present. Ordered Lactulose to assist with constipation; pt states he will consider taking this. 04/26: Continues paranoid and delusional. Refusing to go into room, bathroom or use commode in room; urinated in unit hallway. Refused Lactulose this morning despite encouragement. Continue current tx plan. 04/27: Continue current regimen and plans 04/28/24 Cont risp monitor response cont behavioral plan for helping re ability to lie down to enter a room encourage inc liquids latulose enema if needed 04/29: Keeping to self. urinated in trash bin in unit office. continues to refuse to go into bedroom or bathroom. offered commode and staff bathroom in unit hallway; however continues to decline. paranoid, delusional. Refusing lactulose despite education and no BM. 04/30: Continue current management and treatment plan. 05/01: Continue current management and treatment plan. 05/02: Keeping to self. Continues to refuse to enter bed room. He continues to report paranoia of someone trying to kill me if I go into the room ; pt encouraged to take one step over threshold, however, declined to do so; discussed increase in risperdal. Risperidal increased to 8mg PO bedtime. Patient reports having a bowel movement over the weekend but states he had the commode moved to door threshold so that his legs were outside the room. Patient reports he feels my paranoia is less but is unable to give examples of what has changed. Patient reports cold symptoms; allowed for covid/flu/rsv swab, which are negative; declined medication for cold symptoms. 05/03: Continues similar to days prior. paranoid. delusional. reviewed treatment plan with patient. continues to not use restroom, or enter room. continue current tx plan. 05/04/24- ongoing bizarre behavior and refusal to do ADLs independently 05/05: Pt states he feels something from med focused on discharge refusing to engage push againt behaviors that are self destructive 05/06: Lingering around nurses station today. Continues to refuse to enter bedroom or bathroom. Pt reports worry he may be killed if entering room; states he saw messages through the TV on [place], but would not go into detail. Discussed changing medication to Haldol d/t Risperidal being ineffective in paranoid delusions. Decrease Risperidal to 4mg PO bedtime. Start: Haldol 5mg PO bedtime Ativan 0.5mg PO bedtime T/W and Dr. Lorenzana spoke to patients mother, Chio, discussed medications and treatment plan. Chio is aware of medication changes. Patient educated on: diagnosis and medication risk/benefits Guardian/Caregiver educated on: diagnosis and medication risk/benefits Reason for continued inpatient stay Substantial Risk for: med/psych decompensation Time Spent With Patient Time: Total time managing care of this patient today _30___ minutes.
[2024-05-06 20:01] VITALS: BP 100/64; PULSE 93; TEMP 36.9; O2SAT 98
[2024-05-07] MEDS: risperiDONE Oral Sol 1 MG/ML SOLUTION 4 MG PO ×2 (00:04→22:57)
[2024-05-07] MEDS: Haloperidol Lactate Oral Conc 10 MG/5 ML ORAL.CONC 5 MG PO ×2 (00:04→22:57)
--- NOTE | 2024-05-07 08:47 | HO.PSYCHPN ---
Subjective Subjective Date of Service: 05/07/24 Reason For Visit: Schizophrenia Subjective Notes: Section [employer] Healthcare Proxy: No Medical Problems Affecting Mental Status: No Interim History: 38 yo WM who reports doing ok - may have felt a cramp or 2 of muscles after dose of haldol but didn't last long- less 5 minutes- and not xs pain- Having cross taper of risperidone to haliperidol - discussed with patient the purpose behind that- Medication Compliance: Yes Side effects from medications: No Attending Groups: No Review of Systems Acute medical concerns: No Medical Review of Systems: unchanged Mental Status Exam Mental Status Exam Patient Appearance: Unkempt Patient Orientation: Person, Place and Situation Level of Consciousness: Awake Patient Behavior: Guarded and Passive Mood Description: Apathetic Affect Description: Flat Patient Cognition Impaired: No Ability to Follow Directions: Fair Speech Pattern: Clear Hallucinations: None Delusions: Paranoid Ideation Thought Process: Intact and Goal Oriented Thought Content: positive for Poverty of Content Depressive Symptoms: Muscle Tension Judgement: Poor Diagnostics Vital Signs (24Hr): Vital Signs - 24 hr 05/06/24 20:01 Temperature 98.4 F Pulse Rate 93 Blood Pressure 100/64 Pulse Oximetry 98 Oxygen Delivery Method Room Air BMI result Body Mass Index 28.5 Labs 04/20/24 08:23 04/20/24 08:23 Imaging Radiology Impressions: ITS Impressions KUB X-Ray 04/25/24 14:00 IMPRESSION: Large stool burden overall. Electronically signed by: Corin Escoto DO 04/25/2024 07:31 PM [facility] Medications Medications Current Medications Acetaminophen (Acetaminophen 325 Mg Tablet) 650 mg PO Q6H PRN PRN Reason: Headache/Pain Mild Scale (1-3) Al Hydroxide/Mg Hydroxide (Magnesium Hydrox/Alum Hydrox 30 Ml Oral.Susp) 30 ml PO Q6H PRN PRN Reason: Heartburn/Nausea Benztropine Mesylate (Benztropine Mesylate 1 Mg Tablet) 1 mg PO DAILY PRN PRN Reason: Extrapyramidal Effects Betamethasone Dipropion Augmented (Betamethasone Dip Aug 0.05% Cr 15 Gm Tube) 1 appl TOPICAL BID LENI; Protocol Last Admin: 05/07/24 00:07 Dose: Not Given Haloperidol Lactate (Haloperidol Lactate 5 Mg/Ml Vial) 5 mg IM DAILY PRN PRN Reason: Psychosis Haloperidol Lactate (Haloperidol Lactate Oral Conc 10 Mg/5 Ml Oral.Conc) 5 mg PO BEDTIME [facility] Last Admin: 05/07/24 00:04 Dose: 5 mg Hydroxyzine HCl (Hydroxyzine Hcl 25 Mg Tablet) 25 mg PO Q6H PRN PRN Reason: Anxiety Lactic Acid (Ammonium Lactate 12 % Cream 140 Gm Tube) 1 appl TOPICAL BID PRN; Protocol PRN Reason: Dry, scaly skin Last Admin: 04/18/24 20:53 Dose: 1 appl Lactulose (Lactulose 20 Gm/30 Ml Solution) 40 gm PO BID [facility] Last Admin: 05/07/24 00:07 Dose: Not Given Lorazepam (Lorazepam 0.5 Mg Tablet) 0.5 mg PO BEDTIME LENI Last Admin: 05/07/24 00:07 Dose: Not Given Magnesium Hydroxide (Milk Of Magnesia 30 Ml Oral.Susp) 30 ml PO DAILY PRN PRN Reason: Constipation Risperidone (Risperidone Oral Kami 1 Mg/Ml Solution) 4 mg PO BEDTIME [facility] Last Admin: 05/07/24 00:04 Dose: 4 mg Trazodone HCl (Trazodone Hcl 50 Mg Tablet) 50 mg PO BEDTIME MRX1 PRN PRN Reason: Insomnia Allergies Allergies Allergy/AdvReac Type Severity Reaction Status Date / Time Unable to Assess Allergy Verified 03/25/24 21:15 Assessment & Plan Assessment & Plan (1) Schizophrenia: Status: Acute Code(s): F20.9 - Schizophrenia, unspecified Plan 03/26: risperidone 1/. collateral from mother. clarify legal circumstance/rolando's order. 03/27: refusing meds, not leaving his chair. urinating in cup beneath blanket. requesting immediate discharge. continue to offer medication. clarify legal circumstance and ability to involuntarily administer medication. diamond warning provided. 03/28: Sitting in chair in milieu. Per nursing, patient urinating in cups under blankets. Patient was notified that he must go to his room to use the toilet and can not urinate in common areas. Patient was able to walk down unit hallway with no assistance. Patient is requesting to have a wheelchair d/t being terrified of falling . Patient stated, I do not have any kind of condition. I am just worried about falling . Patient reports that he has not been eating much due to fear of being poisoned however, he would not elaborate as to who he believes is poisoning him. He reports at home he has been urinating in milk cartons and defecating in trash bags and having his mother dispose of these items. Patient agreed to take 1 mg of Risperdal PO; however, expressed paranoia towards RN about being a different medication/dosage despite being shown packaging. T/W obtained information from patient's mother, Chio; Chio reports patient has not been using the toilet for the past two years due to being afraid that snakes will get him and voices telling him the same. Chio reports, pt is also afraid of walking d/t fear of hitting his head. She reports patient has never been on antipsychotics and has only taken anti-anxiety medications for 3 weeks which patient discontinued. She denies history of inpatient psychiatric hospitalizations. She reports having guardianship due to patient being unable to care for self. 03/29: Observing pacing unit hallway. Keeping to self. Covering self with blanket. Per nursing, pt slept in chair in milieu for 5 hours last night. Refused medications last night and this morning. Pt reports he does not want to sleep in a bed d/t feeling more vulnerable when laying down . Patient reports he does not want to go into the bathroom because he is paranoid that something might happen in there or someone might be waiting for me in there . Pt's 3 day up 03/30/24; he is requesting to be discharged home. 03/30: Observed standing at nurses station throughout shift; not taking redirection from staff to please step away for pt confidentiality. Argumentative. 3 day up today; filed on; pt notified. Pt stated, you can't keep me here. I'm going to jose you and make your head spin 3 times! Your documents are not real! Refused Zyprexa. Per nursing, pt urinated in carton in unit hallway;continues to refuse utilizing bathroom. Per nursing, pt did not eat anything today. 03/31: Pacing in front of nurses station. disheveled, malodorous; encouraged to shower, however pt declined despite being offered shower chair and staff member to wait outside shower room if assistance is needed. Per nursing, pt urinated in cup and sensory room floor last evening. Pt continues to report paranoia regarding using bathroom; pt stated, I'm worried someone will be in the bathroom waiting for me because of who I am . When asked why he believes someone would want to hurt him; pt stated, I can't discuss that . denies SI/HI/VH/AH. He reports not eating d/t concerns that he may be poisoned by someone ; observed drinking water from water bottle. Pt offered Zyprexa PO per court ordered treatment plan; per nursing, pt initially refused then agreed to take. 04/01: Patient continues to stand or pace in front of nurses station. disheveled, malodorous; per nursing, pt urinated in trash in [facility] last evening. T/W spoke to patient regarding using restroom on unit; pt continues to report concern that someone can try to kill me because of who I am and who my family is ; when asked why someone would hurt him. Pt stated, because we are well known in [place] and they may hurt me because of it ; pt unable to specify who they are. denies AH/VH. Pt was offered for staff member to examine restroom and stand outside to assure no one is waiting for him; however pt continues to decline. Patient stated, I feel like you guys are playing a psychotic game with me or that they are doing this for their entertainment . 04/02: Patient continues to present similar to days prior. He continues to report paranoia regarding using restroom, shower and eating. Pt stated, I urinated in the trash early in the morning ; he continues to state he will consider using restroom. Pt reports taking bites of breakfast this morning. denies any side effects from Zyprexa other than feeling tired; pt stated, I am feeling a bit calmer . Per nursing, pt slept in chair in [facility] for 7 hours last night. Will continue to build rapport. 04/03: Patient continues to report paranoia regarding using restroom, shower and eating. Pt was offered single room d/t continuous urinating in [facility]; pt declined. Pt stated, I don't think a single room would help. I'm still having the same thoughts . Pt reports he has increased his fluid intake with water, juice and milk; however he continues to report only take a few bites of food. 04/04: Discussed medications increases with pt which he refuses at this time. Focused on discharge, and where his belongings are being stored at this time. 04/05: Patient declined to meet with T/W in unit office; pt stated, I don't feel comfortable going into the office because I think someone would hurt me ; pt reassured no one would hurt him, however, he continued to decline. Met with pt in unit hallway. Patient reports he did not urinate yesterday; he was educated regarding medical complications that can occur with decreased intake of fluids and food. Pt stated, I know but it's not like I'm dying . Pt refused labs. Discussed various solutions of pt feeling safe to use restroom or shower. pt stated, I'm still worried someone is going to hurt me. I'm not sure who, but it's because I am along the lines of royalty and it's putting me in harms way if I use the bathroom, shower or eat . Pt reporting zyprexa is making him too tired ; plan to DC. start risperidal 1mg PO daily with plan to switch to PLAZA; discussed with pt. T/W spoke to patient's mother, Chio, who reports has not left the house in 2 years and has not bathed or used the restroom in a year. She expressed concern over his wellbeing of not drinking or eating. She plans on calling patient to encourage him increase fluid intake. 04/07: Pt continues similar to days prior. Pt reports he did not urinate yesterday. Refused labs again. Hearing was held today; Pt was commited. T/W informed pt of plan to increase risperidal. Pt to receive additional risperidal 1mg PO bedtime dose to night. Starting tomorrow, Increase: Risperidal 2mg PO bedtime. 04/08: Staying in common area, however, keeping to self. per nursing, pt urinated in multiple cups last evening in common area and declined to use restroom. Pt reports feeling frustrated about not being discharged ; T/W discussed plan with medications again. Pt requesting to be discharged home today; asking multiple staff. Pt continues to report paranoia regarding using toilet, shower, eating/drinking. Encouraged to allow labs. 04/10: No changes. Encourage ongoing med adherence especially for Risperdal. Also encourage elevating legs as per hospitalist evaluation on 04/06/2024. Ordering an extra large compression stockings. 04/11: Met with pt in unit office. Continues to stay in common areas. paranoid. Pt discussed paranoia regarding eating; pt stated, how do you know someone isn't trying to poison me? People in this hospital. Per nursing, ate 10% of one meal yesterday and 25% of one meal today, has not eaten anything otherwise. Patient continues to refuse labs; shower (pt reports he has not bathed himself since admission and refusing to change clothes). Declining to use bathroom. perseverating on discharge to go back home where I can continue doing these things and be more comfortable . Continues similar to days prior; ? possible cheeking, will switch to risperidal liquid. Increase dose to Risperidal 3mg PO bedtime. Wound consult ordered for bilateral legs 04/12: Met with pt in unit office. Continues to stay in common areas; declining to go into assigned room for any reason. He continues paranoid, anxious, fearful. Pt argumentative and requesting discharge since he has been able to meet with T/W in the unit office for the past 2 days. Discussed that pt does not allow for the door to be closed, continues with paranoia stating my safety is a concern if the door is closed . Declining bathroom and shower. Discussed change of medication to liquid d/t possible cheeking. 04/13: Pt continues paranoid, anxious, fearful. T/W and drug abuse social worker, Sabi, encouraged pt to walk into his room; lights were turned on to show no one was in the room and it was safe; however, pt continues to make paranoid statements of someone waiting to hurt him. Pt reports he did not urinate yesterday; discussed the importance of drinking fluids and eating meals. Per nursing, pt ate 5% of breakfast yesterday and declined lunch and dinner. Continue current tx plan. 04/14: Pt continues similar to days prior. Refusing to cross threshold into any room other than side office. Continues concerned that someone may hurt him if he goes into a room even if staff are with him. Per nursing, pt has not eaten or drank fluids today. He did urinate in trash can in the [facility] and continues to refuse using restroom; despite having access to multiple bathrooms. Continue current tx plan. 04/15: T/W and RN attempting to reassure patient of his safety to be able to cross threshold into his room. Continues to believe someone may be hiding in the room to hurt him. Argumentative, attempting to change topic when asked questions about challenging his anxiety and paranoia. Per nursing, pt continues to have poor intake. Pt reports he did not urinate yesterday 04/17: No changes 04/18: Met with Dr. Lorenzana present. Pt continues to decline to go into bedroom or restroom; was willing to meet in side office with door open. He continues to discuss his anxiety and paranoia regarding being attacked by someone or snakes . Pt states he does not believe to have a mental illness ; requesting to be discharged home. Pt re-educated on goal of treatment. 04/19: Pt continues similar to days prior. Patient was given single room however pt continues to decline to enter room despite not having a room mate. He reports not urinating or having a bowel movement yesterday or today. Risperidal increased 4mg PO bedtime; pt aware. Labs ordered for tomorrow for monitoring of medical status while being treated with antipsychotics medications; informed consent obtained from guardian and patient is aware that informed consent was obtained. 04/20: pt continues to decline to enter his single room. Chair was placed between hallway and bedroom threshold; pt stated, I'm not going in there because I'm worried I might if I sit down . Continues with paranoid delusions. denies any side effects from increase in risperidal. encouraged to take Ativan to help with anxiety. Declined to go into his room to receive leg treatment. Declined to use restroom. 04/21: Continues with paranoid delusions; pt stated, I won't go in there because someone wants to kill me. I don't know who exactly. I know this from the narrative I hear and the symbolism I see on TV and commercial trucks . Declined to go into his room to receive leg treatment. Declined to use restroom. Eating/drinking minimally. Spoke with patient's mother and guardian, Chio, via phone. Reviewed current treatment plan and labs. 04/22: Patient continues similar to days prior. Continues with paranoid delusions; Declined to go into his room to receive leg treatment. Declined to use restroom. Eating/drinking minimally. Patient encouraged to challenge anxiety. 04/23 continue tx. 04/24 continue tx. increase risperidone to 6mg po qhs. 04/25: Continues paranoid and delusional. Refusing to go into room; pt stated, If I go in there I can be hurt with or without knowing ; when asked to elaborate, pt stated, they might hurt me, without me knowing I was hurt . Declining to use bathroom; observed to have distended abdomen, KUB ordered, pt was willing to have imaging done; awaiting results. Pt was willing to go into treatment room to use bath wipes and clean himself with RN present. Ordered Lactulose to assist with constipation; pt states he will consider taking this. 04/26: Continues paranoid and delusional. Refusing to go into room, bathroom or use commode in room; urinated in unit hallway. Refused Lactulose this morning despite encouragement. Continue current tx plan. 04/27: Continue current regimen and plans 04/28/24 Cont risp monitor response cont behavioral plan for helping re ability to lie down to enter a room encourage inc liquids latulose enema if needed 04/29: Keeping to self. urinated in trash bin in unit office. continues to refuse to go into bedroom or bathroom. offered commode and staff bathroom in unit hallway; however continues to decline. paranoid, delusional. Refusing lactulose despite education and no BM. 04/30: Continue current management and treatment plan. 05/01: Continue current management and treatment plan. 05/02: Keeping to self. Continues to refuse to enter bed room. He continues to report paranoia of someone trying to kill me if I go into the room ; pt encouraged to take one step over threshold, however, declined to do so; discussed increase in risperdal. Risperidal increased to 8mg PO bedtime. Patient reports having a bowel movement over the weekend but states he had the commode moved to door threshold so that his legs were outside the room. Patient reports he feels my paranoia is less but is unable to give examples of what has changed. Patient reports cold symptoms; allowed for covid/flu/rsv swab, which are negative; declined medication for cold symptoms. 05/03: Continues similar to days prior. paranoid. delusional. reviewed treatment plan with patient. continues to not use restroom, or enter room. continue current tx plan. 05/04/24- ongoing bizarre behavior and refusal to do ADLs independently 05/05: Pt states he feels something from med focused on discharge refusing to engage push againt behaviors that are self destructive 05/06: Lingering around nurses station today. Continues to refuse to enter bedroom or bathroom. Pt reports worry he may be killed if entering room; states he saw messages through the TV on [place], but would not go into detail. Discussed changing medication to Haldol d/t Risperidal being ineffective in paranoid delusions. Decrease Risperidal to 4mg PO bedtime. Start: Haldol 5mg PO bedtime Ativan 0.5mg PO bedtime T/W and Dr. Lorenzana spoke to patients mother, Chio, discussed medications and treatment plan. Chio is aware of medication changes. Patient educated on: medication risk/benefits Informed Consent: understands Reason for continued inpatient stay Substantial Risk for: inability to function, rapid decompensation and med/psych decompensation Time Spent With Patient Time: Total time managing care of this patient today ____ minutes.
[2024-05-07 22:10] VITALS: BP 102/65; PULSE 81; TEMP 36.6; O2SAT 99
[2024-05-08 07:58] VITALS: BP 99/60; PULSE 75; RESP 14; TEMP 36.4; O2SAT 100
--- NOTE | 2024-05-08 12:11 | P.PNPSI_ITS ---
Subjective Subjective Date of Service: 05/08/24 Reason For Visit: Schizophrenia Subjective Notes: Section 8 Medical Problems Affecting Mental Status: No Interim History: 38 yo with continued refusal to lie down to sleep in bed, and toilet on comode partially in a room, refusing to empty it himself , nursing still has to - REports he is homesick - and would like dc to home- Mild brief twitch of muscle this am- no pain Medication Compliance: Yes Side effects from medications: Yes (mild muscle twitch/brief) Attending Groups: No Review of Systems Acute medical concerns: No Medical Review of Systems: unchanged Mental Status Exam Mental Status Exam Narrative: continues dressed in cruz and with blanket standing most of day in [place] not interacting much Patient Appearance: Unkempt Patient Orientation: Person, Place and Situation Level of Consciousness: Awake Patient Behavior: Guarded, Cooperative, Resistive to Care, Avoidant and Good Eye Contact Mood Description: Apathetic Affect Description: Blunted Patient Cognition Impaired: No Ability to Follow Directions: Fair Speech Pattern: Clear Hallucinations: None Delusions: Paranoid Ideation Thought Process: Intact and Goal Oriented Thought Content: positive for [place] and positive for Poverty of Content Judgement: Poor Diagnostics Vital Signs (24Hr): Vital Signs - 24 hr 05/07/24 22:10 05/08/24 07:58 Temperature 97.8 F 97.5 F Pulse Rate 81 75 Respiratory Rate 14 Blood Pressure 102/65 99/60 Pulse Oximetry 99 100 Oxygen Delivery Method Room Air Room Air BMI result Body Mass Index 28.5 Labs 04/20/24 08:23 04/20/24 08:23 Imaging Radiology Impressions: ITS Impressions KUB X-Ray 04/25/24 14:00 IMPRESSION: Large stool burden overall. Electronically signed by: Corin Escoto DO 04/25/2024 07:31 PM [facility] [place], [place] Medications Medications Current Medications Acetaminophen (Acetaminophen 325 Mg Tablet) 650 mg PO Q6H PRN PRN Reason: Headache/Pain Mild Scale (1-3) Al Hydroxide/Mg Hydroxide (Magnesium Hydrox/Alum Hydrox 30 Ml Oral.Susp) 30 ml PO Q6H PRN PRN Reason: Heartburn/Nausea Benztropine Mesylate (Benztropine Mesylate 1 Mg Tablet) 1 mg PO DAILY PRN PRN Reason: Extrapyramidal Effects Betamethasone Dipropion Augmented (Betamethasone Dip Aug 0.05% Cr 15 Gm Tube) 1 appl TOPICAL BID LENI; Protocol Last Admin: 05/08/24 11:53 Dose: Not Given Haloperidol Lactate (Haloperidol Lactate 5 Mg/Ml Vial) 5 mg IM DAILY PRN PRN Reason: Psychosis Haloperidol Lactate (Haloperidol Lactate Oral Conc 10 Mg/5 Ml Oral.Conc) 5 mg PO BEDTIME LENI Last Admin: 05/07/24 22:57 Dose: 5 mg Hydroxyzine HCl (Hydroxyzine Hcl 25 Mg Tablet) 25 mg PO Q6H PRN PRN Reason: Anxiety Lactic Acid (Ammonium Lactate 12 % Cream 140 Gm Tube) 1 appl TOPICAL BID PRN; Protocol PRN Reason: Dry, scaly skin Last Admin: 04/18/24 20:53 Dose: 1 appl Lactulose (Lactulose 20 Gm/30 Ml Solution) 40 gm PO BID LENI Last Admin: 05/08/24 11:53 Dose: Not Given Lorazepam (Lorazepam 0.5 Mg Tablet) 0.5 mg PO BEDTIME LENI Last Admin: 05/07/24 23:00 Dose: Not Given Magnesium Hydroxide (Milk Of Magnesia 30 Ml Oral.Susp) 30 ml PO DAILY PRN PRN Reason: Constipation Risperidone (Risperidone Oral Kami 1 Mg/Ml Solution) 4 mg PO BEDTIME LENI Last Admin: 05/07/24 22:57 Dose: 4 mg Trazodone HCl (Trazodone Hcl 50 Mg Tablet) 50 mg PO BEDTIME MRX1 PRN PRN Reason: Insomnia Allergies Allergies Allergy/AdvReac Type Severity Reaction Status Date / Time Unable to Assess Allergy Verified 03/25/24 21:15 Assessment & Plan Assessment & Plan (1) Schizophrenia: Status: Acute Code(s): F20.9 - Schizophrenia, unspecified Plan 03/26: risperidone 1/2. collateral from mother. clarify legal circumstance/rolando's order. 03/27: refusing meds, not leaving his chair. urinating in cup beneath blanket. requesting immediate discharge. continue to offer medication. clarify legal circumstance and ability to involuntarily administer medication. diamond warning provided. 03/28: Sitting in chair in milieu. Per nursing, patient urinating in cups under blankets. Patient was notified that he must go to his room to use the toilet and can not urinate in common areas. Patient was able to walk down unit hallway with no assistance. Patient is requesting to have a wheelchair d/t being terrified of falling . Patient stated, I do not have any kind of condition. I am just worried about falling . Patient reports that he has not been eating much due to fear of being poisoned however, he would not elaborate as to who he believes is poisoning him. He reports at home he has been urinating in milk cartons and defecating in trash bags and having his mother dispose of these items. Patient agreed to take 1 mg of Risperdal PO; however, expressed paranoia towards RN about being a different medication/dosage despite being shown packaging. T/W obtained information from patient's mother, Chio; Chio reports patient has not been using the toilet for the past two years due to being afraid that snakes will get him and voices telling him the same. Chio reports, pt is also afraid of walking d/t fear of hitting his head. She reports patient has never been on antipsychotics and has only taken anti-anxiety medications for 3 weeks which patient discontinued. She denies history of inpatient psychiatric hospitalizations. She reports having guardianship due to patient being unable to care for self. 03/29: Observing pacing unit hallway. Keeping to self. Covering self with blanket. Per nursing, pt slept in chair in milieu for 5 hours last night. Refused medications last night and this morning. Pt reports he does not want to sleep in a bed d/t feeling more vulnerable when laying down . Patient reports he does not want to go into the bathroom because he is paranoid that something might happen in there or someone might be waiting for me in there . Pt's 3 day up 03/30/24; he is requesting to be discharged home. 03/30: Observed standing at nurses station throughout shift; not taking redirection from staff to please step away for pt confidentiality. Argumentative. 3 day up today; filed on; pt notified. Pt stated, you can't keep me here. I'm going to jose you and make your head spin 3 times! Your documents are not real! Refused Zyprexa. Per nursing, pt urinated in carton in unit hallway;continues to refuse utilizing bathroom. Per nursing, pt did not eat anything today. 11/28: Pacing in front of nurses station. disheveled, malodorous; encouraged to shower, however pt declined despite being offered shower chair and staff member to wait outside shower room if assistance is needed. Per nursing, pt urinated in cup and sensory room floor last evening. Pt continues to report paranoia regarding using bathroom; pt stated, I'm worried someone will be in the bathroom waiting for me because of who I am . When asked why he believes someone would want to hurt him; pt stated, I can't discuss that . denies SI/HI/VH/AH. He reports not eating d/t concerns that he may be poisoned by someone ; observed drinking water from water bottle. Pt offered Zyprexa PO per court ordered treatment plan; per nursing, pt initially refused then agreed to take. 04/01: Patient continues to stand or pace in front of nurses station. disheveled, malodorous; per nursing, pt urinated in trash in mileu last evening. T/W spoke to patient regarding using restroom on unit; pt continues to report concern that someone can try to kill me because of who I am and who my family is ; when asked why someone would hurt him. Pt stated, because we are well known in [place] and they may hurt me because of it ; pt unable to specify who they are. denies AH/VH. Pt was offered for staff member to examine restroom and stand outside to assure no one is waiting for him; however pt continues to decline. Patient stated, I feel like you guys are playing a psychotic game with me or that they are doing this for their entertainment . 04/02: Patient continues to present similar to days prior. He continues to report paranoia regarding using restroom, shower and eating. Pt stated, I urinated in the trash early in the morning ; he continues to state he will consider using restroom. Pt reports taking bites of breakfast this morning. denies any side effects from Zyprexa other than feeling tired; pt stated, I am feeling a bit calmer . Per nursing, pt slept in chair in [facility] for 7 hours last night. Will continue to build rapport. 04/03: Patient continues to report paranoia regarding using restroom, shower and eating. Pt was offered single room d/t continuous urinating in mileu; pt declined. Pt stated, I don't think a single room would help. I'm still having the same thoughts . Pt reports he has increased his fluid intake with water, juice and milk; however he continues to report only take a few bites of food. 04/04: Discussed medications increases with pt which he refuses at this time. Focused on discharge, and where his belongings are being stored at this time. 04/05: Patient declined to meet with T/W in unit office; pt stated, I don't feel comfortable going into the office because I think someone would hurt me ; pt reassured no one would hurt him, however, he continued to decline. Met with pt in unit hallway. Patient reports he did not urinate yesterday; he was educated regarding medical complications that can occur with decreased intake of fluids and food. Pt stated, I know but it's not like I'm dying . Pt refused labs. Discussed various solutions of pt feeling safe to use restroom or shower. pt stated, I'm still worried someone is going to hurt me. I'm not sure who, but it's because I am along the lines of royalty and it's putting me in harms way if I use the bathroom, shower or eat . Pt reporting zyprexa is making him too tired ; plan to DC. start risperidal 1mg PO daily with plan to switch to PLAZA; discussed with pt. T/W spoke to patient's mother, Chio, who reports has not left the house in 2 years and has not bathed or used the restroom in a year. She expressed concern over his wellbeing of not drinking or eating. She plans on calling patient to encourage him increase fluid intake. 04/07: Pt continues similar to days prior. Pt reports he did not urinate yesterday. Refused labs again. Hearing was held today; Pt was commited. T/W informed pt of plan to increase risperidal. Pt to receive additional risperidal 1mg PO bedtime dose to night. Starting tomorrow, Increase: Risperidal 2mg PO bedtime. 04/08: Staying in common area, however, keeping to self. per nursing, pt urinated in multiple cups last evening in common area and declined to use restroom. Pt reports feeling frustrated about not being discharged ; T/W discussed plan with medications again. Pt requesting to be discharged home today; asking multiple staff. Pt continues to report paranoia regarding using toilet, shower, eating/drinking. Encouraged to allow labs. 04/10: No changes. Encourage ongoing med adherence especially for Risperdal. Also encourage elevating legs as per hospitalist evaluation on 04/06/2024. Ordering an extra large compression stockings. 04/11: Met with pt in unit office. Continues to stay in common areas. paranoid. Pt discussed paranoia regarding eating; pt stated, how do you know someone isn't trying to poison me? People in this hospital. Per nursing, ate 10% of one meal yesterday and 25% of one meal today, has not eaten anything otherwise. Patient continues to refuse labs; shower (pt reports he has not bathed himself since admission and refusing to change clothes). Declining to use bathroom. perseverating on discharge to go back home where I can continue doing these things and be more comfortable . Continues similar to days prior; ? possible cheeking, will switch to risperidal liquid. Increase dose to Risperidal 3mg PO bedtime. Wound consult ordered for bilateral legs 04/12: Met with pt in unit office. Continues to stay in common areas; declining to go into assigned room for any reason. He continues paranoid, anxious, fearful. Pt argumentative and requesting discharge since he has been able to meet with T/W in the unit office for the past 2 days. Discussed that pt does not allow for the door to be closed, continues with paranoia stating my safety is a concern if the door is closed . Declining bathroom and shower. Discussed change of medication to liquid d/t possible cheeking. 04/13: Pt continues paranoid, anxious, fearful. T/W and social and human services assistant, Sabi, encouraged pt to walk into his room; lights were turned on to show no one was in the room and it was safe; however, pt continues to make paranoid statements of someone waiting to hurt him. Pt reports he did not urinate yesterday; discussed the importance of drinking fluids and eating meals. Per nursing, pt ate 5% of breakfast yesterday and declined lunch and dinner. Continue current tx plan. 04/14: Pt continues similar to days prior. Refusing to cross threshold into any room other than side office. Continues concerned that someone may hurt him if he goes into a room even if staff are with him. Per nursing, pt has not eaten or drank fluids today. He did urinate in trash can in the mileu and continues to refuse using restroom; despite having access to multiple bathrooms. Continue current tx plan. 04/15: T/W and RN attempting to reassure patient of his safety to be able to cross threshold into his room. Continues to believe someone may be hiding in the room to hurt him. Argumentative, attempting to change topic when asked questions about challenging his anxiety and paranoia. Per nursing, pt continues to have poor intake. Pt reports he did not urinate yesterday 04/17: No changes 04/18: Met with Dr. Lorenzana present. Pt continues to decline to go into bedroom or restroom; was willing to meet in side office with door open. He continues to discuss his anxiety and paranoia regarding being attacked by someone or snakes . Pt states he does not believe to have a mental illness ; requesting to be discharged home. Pt re-educated on goal of treatment. 04/19: Pt continues similar to days prior. Patient was given single room however pt continues to decline to enter room despite not having a room mate. He reports not urinating or having a bowel movement yesterday or today. Risperidal increased 4mg PO bedtime; pt aware. Labs ordered for tomorrow for monitoring of medical status while being treated with antipsychotics medications; informed consent obtained from guardian and patient is aware that informed consent was obtained. 04/20: pt continues to decline to enter his single room. Chair was placed between hallway and bedroom threshold; pt stated, I'm not going in there because I'm worried I might if I sit down . Continues with paranoid delusions. denies any side effects from increase in risperidal. encouraged to take Ativan to help with anxiety. Declined to go into his room to receive leg treatment. Declined to use restroom. 04/21: Continues with paranoid delusions; pt stated, I won't go in there because someone wants to kill me. I don't know who exactly. I know this from the narrative I hear and the symbolism I see on TV and commercial trucks . Declined to go into his room to receive leg treatment. Declined to use restroom. Eating/drinking minimally. Spoke with patient's mother and guardian, Chio, via phone. Reviewed current treatment plan and labs. 04/22: Patient continues similar to days prior. Continues with paranoid delusions; Declined to go into his room to receive leg treatment. Declined to use restroom. Eating/drinking minimally. Patient encouraged to challenge anxiety. 04/23 continue tx. 04/24 continue tx. increase risperidone to 6mg po qhs. 04/25: Continues paranoid and delusional. Refusing to go into room; pt stated, If I go in there I can be hurt with or without knowing ; when asked to elaborate, pt stated, they might hurt me, without me knowing I was hurt . Declining to use bathroom; observed to have distended abdomen, KUB ordered, pt was willing to have imaging done; awaiting results. Pt was willing to go into treatment room to use bath wipes and clean himself with RN present. Ordered Lactulose to assist with constipation; pt states he will consider taking this. 04/26: Continues paranoid and delusional. Refusing to go into room, bathroom or use commode in room; urinated in unit hallway. Refused Lactulose this morning despite encouragement. Continue current tx plan. 04/27: Continue current regimen and plans 04/28/24 Cont risp monitor response cont behavioral plan for helping re ability to lie down to enter a room encourage inc liquids latulose enema if needed 04/29: Keeping to self. urinated in trash bin in unit office. continues to refuse to go into bedroom or bathroom. offered commode and staff bathroom in unit hallway; however continues to decline. paranoid, delusional. Refusing lactulose despite education and no BM. 04/30: Continue current management and treatment plan. 05/01: Continue current management and treatment plan. 05/02: Keeping to self. Continues to refuse to enter bed room. He continues to report paranoia of someone trying to kill me if I go into the room ; pt encouraged to take one step over threshold, however, declined to do so; discussed increase in risperdal. Risperidal increased to 8mg PO bedtime. Patient reports having a bowel movement over the weekend but states he had the commode moved to door threshold so that his legs were outside the room. Patient reports he feels my paranoia is less but is unable to give examples of what has changed. Patient reports cold symptoms; allowed for covid/flu/rsv swab, which are negative; declined medication for cold symptoms. 05/03: Continues similar to days prior. paranoid. delusional. reviewed treatment plan with patient. continues to not use restroom, or enter room. continue current tx plan. 05/04/24- ongoing bizarre behavior and refusal to do ADLs independently 05/05: Pt states he feels something from med focused on discharge refusing to engage push againt behaviors that are self destructive 05/06: Lingering around nurses station today. Continues to refuse to enter bedroom or bathroom. Pt reports worry he may be killed if entering room; states he saw messages through the TV on [place], but would not go into detail. Discussed changing medication to Haldol d/t Risperidal being ineffective in paranoid delusions. Decrease Risperidal to 4mg PO bedtime. Start: Haldol 5mg PO bedtime Ativan 0.5mg PO bedtime T/W and Dr. Lorenzana spoke to patients mother, Chio, discussed medications and treatment plan. Chio is aware of medication changes. Patient educated on: medication risk/benefits Informed Consent: understands Reason for continued inpatient stay Substantial Risk for: inability to function and rapid decompensation Time Spent With Patient Time: Total time managing care of this patient today ____ minutes.
[2024-05-08 20:00] VITALS: BP 106/60; PULSE 70; RESP 16; TEMP 36.8; O2SAT 100
[2024-05-08] MEDS: risperiDONE Oral Sol 1 MG/ML SOLUTION 4 MG PO (22:34)
[2024-05-08] MEDS: Haloperidol Lactate Oral Conc 10 MG/5 ML ORAL.CONC 5 MG PO (22:36)
--- NOTE | 2024-05-09 15:29 | P.PNPSI_ITS ---
Subjective Subjective Date of Service: 05/09/24 Reason For Visit: Schizophrenia Subjective Notes: Section 8 Interim History: Continues to linger around nurses station today. Continues paranoid and delusional. Argumentative today. Refusing to elevate legs on chair despite swelling; pt stated, I don't want to elevate my legs because I don't want to . Per nursing, last BM was 05/06/24. Pt continues to decline to go into room or bathroom even though he understands this will allow him to challenge his anxiety/paranoid withl the hopes of being discharges home. Patient stated, I'm not going to play with fate by going into the bathroom. All of you providers are compromising my safety . pt denies side effects from medication changes. Risperidal decreased to 2mg PO bedtime. Haldol increased to 10mg PO bedtime; pt aware. Encouraged to take Ativan to help with increased anxiety. Medication Compliance: Intermittent Side effects from medications: No Attending Groups: No Review of Systems Constitutional: Reports as per HPI Eyes: Reports as per HPI Reports as per HPI Cardiovascular: Reports as per HPI Respiratory: Reports as per HPI Gastrointestinal: Reports as per HPI Genitourinary: Reports as per HPI Musculoskeletal: Reports as per HPI Skin/Breast: Reports as per HPI Reports as per HPI Psychiatric: Reports as per HPI Endocrine: Reports as per HPI Hematologic/Lymphatic: Reports as per HPI Allergic/Immunologic: Reports as per HPI Mental Status Exam Mental Status Exam Narrative: Pt is alert and oriented; behavior is calm but argumentative; dressed in hospital attire, malodorous, disheveled; mood is described as not good ; eye contact appropriate; Speech is normal rate, volume and not pressured; focused on discharge; paranoid, delusional. denies SI/HI. Insight and judgment are poor. Diagnostics Vital Signs (24Hr): Vital Signs - 24 hr 05/08/24 20:00 Temperature 98.2 F Pulse Rate 70 Respiratory Rate 16 Blood Pressure 106/60 Pulse Oximetry 100 Oxygen Delivery Method Room Air BMI result Body Mass Index 28.5 Labs 04/20/24 08:23 04/20/24 08:23 Imaging Radiology Impressions: ITS Impressions KUB X-Ray 04/25/24 14:00 IMPRESSION: Large stool burden overall. Electronically signed by: Corin Escoto DO 04/25/2024 07:31 PM EST RP Medications Medications Current Medications Acetaminophen (Acetaminophen 325 Mg Tablet) 650 mg PO Q6H PRN PRN Reason: Headache/Pain Mild Scale (1-3) Al Hydroxide/Mg Hydroxide (Magnesium Hydrox/Alum Hydrox 30 Ml Oral.Susp) 30 ml PO Q6H PRN PRN Reason: Heartburn/Nausea Benztropine Mesylate (Benztropine Mesylate 1 Mg Tablet) 1 mg PO DAILY PRN PRN Reason: Extrapyramidal Effects Betamethasone Dipropion Augmented (Betamethasone Dip Aug 0.05% Cr 15 Gm Tube) 1 appl TOPICAL BID LENI; Protocol Last Admin: 05/09/24 09:37 Dose: Not Given Haloperidol Lactate (Haloperidol Lactate 5 Mg/Ml Vial) 5 mg IM DAILY PRN PRN Reason: Psychosis Haloperidol Lactate (Haloperidol Lactate Oral Conc 10 Mg/5 Ml Oral.Conc) 5 mg PO BEDTIME [facility] Last Admin: 05/08/24 22:36 Dose: 5 mg Hydroxyzine HCl (Hydroxyzine Hcl 25 Mg Tablet) 25 mg PO Q6H PRN PRN Reason: Anxiety Lactic Acid (Ammonium Lactate 12 % Cream 140 Gm Tube) 1 appl TOPICAL BID PRN; Protocol PRN Reason: Dry, scaly skin Last Admin: 04/18/24 20:53 Dose: 1 appl Lactulose (Lactulose 20 Gm/30 Ml Solution) 40 gm PO BID [facility] Last Admin: 05/09/24 09:37 Dose: Not Given Lorazepam (Lorazepam 0.5 Mg Tablet) 0.5 mg PO BEDTIME [facility] Last Admin: 05/08/24 22:38 Dose: Not Given Magnesium Hydroxide (Milk Of Magnesia 30 Ml Oral.Susp) 30 ml PO DAILY PRN PRN Reason: Constipation Risperidone (Risperidone Oral Kami 1 Mg/Ml Solution) 4 mg PO BEDTIME [facility] Last Admin: 05/08/24 22:34 Dose: 4 mg Trazodone HCl (Trazodone Hcl 50 Mg Tablet) 50 mg PO BEDTIME MRX1 PRN PRN Reason: Insomnia Allergies Allergies Allergy/AdvReac Type Severity Reaction Status Date / Time Unable to Assess Allergy Verified 03/25/24 21:15 Assessment & Plan Assessment & Plan (1) Schizophrenia: Status: Acute Code(s): F20.9 - Schizophrenia, unspecified Plan 03/26: risperidone 1/2. collateral from mother. clarify legal circumstance/rolando's order. 03/27: refusing meds, not leaving his chair. urinating in cup beneath blanket. requesting immediate discharge. continue to offer medication. clarify legal circumstance and ability to involuntarily administer medication. diamond warning provided. 03/28: Sitting in chair in milieu. Per nursing, patient urinating in cups under blankets. Patient was notified that he must go to his room to use the toilet and can not urinate in common areas. Patient was able to walk down unit hallway with no assistance. Patient is requesting to have a wheelchair d/t being terrified of falling . Patient stated, I do not have any kind of condition. I am just worried about falling . Patient reports that he has not been eating much due to fear of being poisoned however, he would not elaborate as to who he believes is poisoning him. He reports at home he has been urinating in milk cartons and defecating in trash bags and having his mother dispose of these items. Patient agreed to take 1 mg of Risperdal PO; however, expressed paranoia towards RN about being a different medication/dosage despite being shown packaging. T/W obtained information from patient's mother, Chio; Chio reports patient has not been using the toilet for the past two years due to being afraid that snakes will get him and voices telling him the same. Chio reports, pt is also afraid of walking d/t fear of hitting his head. She reports patient has never been on antipsychotics and has only taken anti-anxiety medications for 3 weeks which patient discontinued. She denies history of inpatient psychiatric hospitalizations. She reports having guardianship due to patient being unable to care for self. 03/29: Observing pacing unit hallway. Keeping to self. Covering self with blanket. Per nursing, pt slept in chair in milieu for 5 hours last night. Refused medications last night and this morning. Pt reports he does not want to sleep in a bed d/t feeling more vulnerable when laying down . Patient reports he does not want to go into the bathroom because he is paranoid that something might happen in there or someone might be waiting for me in there . Pt's 3 day up 03/30/24; he is requesting to be discharged home. 03/30: Observed standing at nurses station throughout shift; not taking redirection from staff to please step away for pt confidentiality. Argumentative. 3 day up today; filed on; pt notified. Pt stated, you can't keep me here. I'm going to jsoe you and make your head spin 3 times! Your documents are not real! Refused Zyprexa. Per nursing, pt urinated in carton in unit hallway;continues to refuse utilizing bathroom. Per nursing, pt did not eat anything today. 03/31: Pacing in front of nurses station. disheveled, malodorous; encouraged to shower, however pt declined despite being offered shower chair and staff member to wait outside shower room if assistance is needed. Per nursing, pt urinated in cup and sensory room floor last evening. Pt continues to report paranoia regarding using bathroom; pt stated, I'm worried someone will be in the bathroom waiting for me because of who I am . When asked why he believes someone would want to hurt him; pt stated, I can't discuss that . denies SI/HI/VH/AH. He reports not eating d/t concerns that he may be poisoned by someone ; observed drinking water from water bottle. Pt offered Zyprexa PO per court ordered treatment plan; per nursing, pt initially refused then agreed to take. 04/01: Patient continues to stand or pace in front of nurses station. disheveled, malodorous; per nursing, pt urinated in trash in mileu last evening. T/W spoke to patient regarding using restroom on unit; pt continues to report concern that someone can try to kill me because of who I am and who my family is ; when asked why someone would hurt him. Pt stated, because we are well known in [place] and they may hurt me because of it ; pt unable to specify who they are. denies AH/VH. Pt was offered for staff member to examine restroom and stand outside to assure no one is waiting for him; however pt continues to decline. Patient stated, I feel like you guys are playing a psychotic game with me or that they are doing this for their entertainment . 04/02: Patient continues to present similar to days prior. He continues to report paranoia regarding using restroom, shower and eating. Pt stated, I urinated in the trash early in the morning ; he continues to state he will consider using restroom. Pt reports taking bites of breakfast this morning. denies any side effects from Zyprexa other than feeling tired; pt stated, I am feeling a bit calmer . Per nursing, pt slept in chair in [facility] for 7 hours last night. Will continue to build rapport. 04/03: Patient continues to report paranoia regarding using restroom, shower and eating. Pt was offered single room d/t continuous urinating in [facility]; pt declined. Pt stated, I don't think a single room would help. I'm still having the same thoughts . Pt reports he has increased his fluid intake with water, juice and milk; however he continues to report only take a few bites of food. 04/04: Discussed medications increases with pt which he refuses at this time. Focused on discharge, and where his belongings are being stored at this time. 04/05: Patient declined to meet with T/W in unit office; pt stated, I don't feel comfortable going into the office because I think someone would hurt me ; pt reassured no one would hurt him, however, he continued to decline. Met with pt in unit hallway. Patient reports he did not urinate yesterday; he was educated regarding medical complications that can occur with decreased intake of fluids and food. Pt stated, I know but it's not like I'm dying . Pt refused labs. Discussed various solutions of pt feeling safe to use restroom or shower. pt stated, I'm still worried someone is going to hurt me. I'm not sure who, but it's because I am along the lines of royalty and it's putting me in harms way if I use the bathroom, shower or eat . Pt reporting zyprexa is making him too tired ; plan to DC. start risperidal 1mg PO daily with plan to switch to PLAZA; discussed with pt. T/W spoke to patient's mother, Chio, who reports has not left the house in 2 years and has not bathed or used the restroom in a year. She expressed concern over his wellbeing of not drinking or eating. She plans on calling patient to encourage him increase fluid intake. 04/07: Pt continues similar to days prior. Pt reports he did not urinate yesterday. Refused labs again. Hearing was held today; Pt was commited. T/W informed pt of plan to increase risperidal. Pt to receive additional risperidal 1mg PO bedtime dose to night. Starting tomorrow, Increase: Risperidal 2mg PO bedtime. 04/08: Staying in common area, however, keeping to self. per nursing, pt urinated in multiple cups last evening in common area and declined to use restroom. Pt reports feeling frustrated about not being discharged ; T/W discussed plan with medications again. Pt requesting to be discharged home today; asking multiple staff. Pt continues to report paranoia regarding using toilet, shower, eating/drinking. Encouraged to allow labs. 04/10: No changes. Encourage ongoing med adherence especially for Risperdal. Also encourage elevating legs as per hospitalist evaluation on 04/06/2024. Ordering an extra large compression stockings. 04/11: Met with pt in unit office. Continues to stay in common areas. paranoid. Pt discussed paranoia regarding eating; pt stated, how do you know someone isn't trying to poison me? People in this hospital. Per nursing, ate 10% of one meal yesterday and 25% of one meal today, has not eaten anything otherwise. Patient continues to refuse labs; shower (pt reports he has not bathed himself since admission and refusing to change clothes). Declining to use bathroom. perseverating on discharge to go back home where I can continue doing these things and be more comfortable . Continues similar to days prior; ? possible cheeking, will switch to risperidal liquid. Increase dose to Risperidal 3mg PO bedtime. Wound consult ordered for bilateral legs 04/12: Met with pt in unit office. Continues to stay in common areas; declining to go into assigned room for any reason. He continues paranoid, anxious, fearful. Pt argumentative and requesting discharge since he has been able to meet with T/W in the unit office for the past 2 days. Discussed that pt does not allow for the door to be closed, continues with paranoia stating my safety is a concern if the door is closed . Declining bathroom and shower. Discussed change of medication to liquid d/t possible cheeking. 04/13: Pt continues paranoid, anxious, fearful. T/W and roll on worker, Sabi, encouraged pt to walk into his room; lights were turned on to show no one was in the room and it was safe; however, pt continues to make paranoid statements of someone waiting to hurt him. Pt reports he did not urinate yesterday; discussed the importance of drinking fluids and eating meals. Per nursing, pt ate 5% of breakfast yesterday and declined lunch and dinner. Continue current tx plan. 04/14: Pt continues similar to days prior. Refusing to cross threshold into any room other than side office. Continues concerned that someone may hurt him if he goes into a room even if staff are with him. Per nursing, pt has not eaten or drank fluids today. He did urinate in trash can in the mileu and continues to refuse using restroom; despite having access to multiple bathrooms. Continue current tx plan. 04/15: T/W and RN attempting to reassure patient of his safety to be able to cross threshold into his room. Continues to believe someone may be hiding in the room to hurt him. Argumentative, attempting to change topic when asked questions about challenging his anxiety and paranoia. Per nursing, pt continues to have poor intake. Pt reports he did not urinate yesterday 04/17: No changes 04/18: Met with Dr. Lorenzana present. Pt continues to decline to go into bedroom or restroom; was willing to meet in side office with door open. He continues to discuss his anxiety and paranoia regarding being attacked by someone or snakes . Pt states he does not believe to have a mental illness ; requesting to be discharged home. Pt re-educated on goal of treatment. 04/19: Pt continues similar to days prior. Patient was given single room however pt continues to decline to enter room despite not having a room mate. He reports not urinating or having a bowel movement yesterday or today. Risperidal increased 4mg PO bedtime; pt aware. Labs ordered for tomorrow for monitoring of medical status while being treated with antipsychotics medications; informed consent obtained from guardian and patient is aware that informed consent was obtained. 04/20: pt continues to decline to enter his single room. Chair was placed between hallway and bedroom threshold; pt stated, I'm not going in there because I'm worried I might if I sit down . Continues with paranoid delusions. denies any side effects from increase in risperidal. encouraged to take Ativan to help with anxiety. Declined to go into his room to receive leg treatment. Declined to use restroom. 04/21: Continues with paranoid delusions; pt stated, I won't go in there because someone wants to kill me. I don't know who exactly. I know this from the narrative I hear and the symbolism I see on TV and commercial trucks . Declined to go into his room to receive leg treatment. Declined to use restroom. Eating/drinking minimally. Spoke with patient's mother and guardian, Chio, via phone. Reviewed current treatment plan and labs. 04/22: Patient continues similar to days prior. Continues with paranoid delusions; Declined to go into his room to receive leg treatment. Declined to use restroom. Eating/drinking minimally. Patient encouraged to challenge anxiety. 04/23 continue tx. 04/24 continue tx. increase risperidone to 6mg po qhs. 04/25: Continues paranoid and delusional. Refusing to go into room; pt stated, If I go in there I can be hurt with or without knowing ; when asked to elaborate, pt stated, they might hurt me, without me knowing I was hurt . Declining to use bathroom; observed to have distended abdomen, KUB ordered, pt was willing to have imaging done; awaiting results. Pt was willing to go into treatment room to use bath wipes and clean himself with RN present. Ordered Lactulose to assist with constipation; pt states he will consider taking this. 04/26: Continues paranoid and delusional. Refusing to go into room, bathroom or use commode in room; urinated in unit hallway. Refused Lactulose this morning despite encouragement. Continue current tx plan. 04/27: Continue current regimen and plans 04/28/24 Cont risp monitor response cont behavioral plan for helping re ability to lie down to enter a room encourage inc liquids latulose enema if needed 04/29: Keeping to self. urinated in trash bin in unit office. continues to refuse to go into bedroom or bathroom. offered commode and staff bathroom in unit hallway; however continues to decline. paranoid, delusional. Refusing lactulose despite education and no BM. 04/30: Continue current management and treatment plan. 05/01: Continue current management and treatment plan. 05/02: Keeping to self. Continues to refuse to enter bed room. He continues to report paranoia of someone trying to kill me if I go into the room ; pt encouraged to take one step over threshold, however, declined to do so; discussed increase in risperdal. Risperidal increased to 8mg PO bedtime. Patient reports having a bowel movement over the weekend but states he had the commode moved to door threshold so that his legs were outside the room. Patient reports he feels my paranoia is less but is unable to give examples of what has changed. Patient reports cold symptoms; allowed for covid/flu/rsv swab, which are negative; declined medication for cold symptoms. 05/03: Continues similar to days prior. paranoid. delusional. reviewed treatment plan with patient. continues to not use restroom, or enter room. continue current tx plan. 05/04/24- ongoing bizarre behavior and refusal to do ADLs independently 05/05: Pt states he feels something from med focused on discharge refusing to engage push againt behaviors that are self destructive 05/06: Lingering around nurses station today. Continues to refuse to enter bedroom or bathroom. Pt reports worry he may be killed if entering room; states he saw messages through the TV on [place], but would not go into detail. Discussed changing medication to Haldol d/t Risperidal being ineffective in paranoid delusions. Decrease Risperidal to 4mg PO bedtime. Start: Haldol 5mg PO bedtime Ativan 0.5mg PO bedtime T/W and Dr. Lorenzana spoke to patients mother, Chio, discussed medications and treatment plan. Chio is aware of medication changes. 05/09: Continues to linger around nurses station today. Continues paranoid and delusional. Argumentative today. Refusing to elevate legs on chair despite swelling; pt stated, I don't want to elevate my legs because I don't want to . Per nursing, last BM was 05/06/24. Pt continues to decline to go into room or bathroom even though he understands this will allow him to challenge his anxiety/paranoid withl the hopes of being discharges home. Patient stated, I'm not going to play with fate by going into the bathroom. All of you providers are compromising my safety . pt denies side effects from medication changes. Risperidal decreased to 2mg PO bedtime. Haldol increased to 10mg PO bedtime; pt aware. Encouraged to take Ativan to help with increased anxiety. Patient educated on: medication risk/benefits and therapeutic strategies Reason for continued inpatient stay Substantial Risk for: med/psych decompensation Time Spent With Patient Time: Total time managing care of this patient today _20___ minutes.
[2024-05-09 20:00] VITALS: BP 106/60; PULSE 70; RESP 16; TEMP 36.8; O2SAT 98
[2024-05-09] MEDS: Haloperidol Lactate Oral Conc 10 MG/5 ML ORAL.CONC PO (22:21)
[2024-05-09] MEDS: risperiDONE Oral Sol 1 MG/ML SOLUTION 2 MG PO (22:23)
--- NOTE | 2024-05-10 11:18 | HO.PSYCHPN ---
Subjective Subjective Date of Service: 05/10/24 Reason For Visit: Schizophrenia Subjective Notes: Section 8 Interim History: Patient observed lingering around nurses station; was asked by nursing to move multiple times for patient confidentiality. He continues anxious, paranoid and grandiose; patient stated, I told you I am a targeted person. I am a [place]. I do not understand why you would put me in dangers way and want me to use the bathroom . Patient continues to refuse to elevate legs; when asked why; patient stated, I want to see what happens ; patient educated regarding importance of elevating legs to decrease swelling. He was seen by hospitalist; please see note. Medication Compliance: Intermittent Side effects from medications: No Attending Groups: No Review of Systems Constitutional: Reports as per HPI Eyes: Reports as per HPI Reports as per HPI Cardiovascular: Reports as per HPI Respiratory: Reports as per HPI Gastrointestinal: Reports as per HPI Genitourinary: Reports as per HPI Musculoskeletal: Reports as per HPI Skin/Breast: Reports as per HPI Reports as per HPI Psychiatric: Reports as per HPI Endocrine: Reports as per HPI Hematologic/Lymphatic: Reports as per HPI Allergic/Immunologic: Reports as per HPI Mental Status Exam Mental Status Exam Narrative: Pt is alert and oriented; behavior is calm but argumentative; dressed in hospital attire, malodorous, disheveled; mood is described as not good ; eye contact appropriate; Speech is normal rate, volume and not pressured; focused on discharge; paranoid, delusional, grandiose. denies SI/HI. Insight and judgment are poor. Diagnostics Vital Signs (24Hr): Vital Signs - 24 hr 05/09/24 20:00 Temperature 98.3 F Pulse Rate 70 Respiratory Rate 16 Blood Pressure 106/60 Pulse Oximetry 98 Oxygen Delivery Method Room Air BMI result Body Mass Index 28.5 Labs 04/20/24 08:23 04/20/24 08:23 Imaging Radiology Impressions: ITS Impressions KUB X-Ray 04/25/24 14:00 IMPRESSION: Large stool burden overall. Electronically signed by: Corin Escoto DO 04/25/2024 07:31 PM EST Medications Medications Current Medications Acetaminophen (Acetaminophen 325 Mg Tablet) 650 mg PO Q6H PRN PRN Reason: Headache/Pain Mild Scale (1-3) Al Hydroxide/Mg Hydroxide (Magnesium Hydrox/Alum Hydrox 30 Ml Oral.Susp) 30 ml PO Q6H PRN PRN Reason: Heartburn/Nausea Benztropine Mesylate (Benztropine Mesylate 1 Mg Tablet) 1 mg PO DAILY PRN PRN Reason: Extrapyramidal Effects Betamethasone Dipropion Augmented (Betamethasone Dip Aug 0.05% Cr 15 Gm Tube) 1 appl TOPICAL BID LENI; Protocol Last Admin: 05/09/24 22:12 Dose: Not Given Haloperidol Lactate (Haloperidol Lactate 5 Mg/Ml Vial) 5 mg IM DAILY PRN PRN Reason: Psychosis Haloperidol Lactate (Haloperidol Lactate Oral Conc 10 Mg/5 Ml Oral.Conc) 10 mg PO BEDTIME LENI Last Admin: 05/09/24 22:21 Dose: 10 mg Hydroxyzine HCl (Hydroxyzine Hcl 25 Mg Tablet) 25 mg PO Q6H PRN PRN Reason: Anxiety Lactic Acid (Ammonium Lactate 12 % Cream 140 Gm Tube) 1 appl TOPICAL BID PRN; Protocol PRN Reason: Dry, scaly skin Last Admin: 04/18/24 20:53 Dose: 1 appl Lactulose (Lactulose 20 Gm/30 Ml Solution) 40 gm PO BID [facility] Last Admin: 05/09/24 22:12 Dose: Not Given Lorazepam (Lorazepam 0.5 Mg Tablet) 0.5 mg PO BEDTIME [facility] Last Admin: 05/09/24 22:12 Dose: Not Given Magnesium Hydroxide (Milk Of Magnesia 30 Ml Oral.Susp) 30 ml PO DAILY PRN PRN Reason: Constipation Risperidone (Risperidone Oral Kami 1 Mg/Ml Solution) 2 mg PO BEDTIME [facility] Last Admin: 05/09/24 22:23 Dose: 2 mg Trazodone HCl (Trazodone Hcl 50 Mg Tablet) 50 mg PO BEDTIME MRX1 PRN PRN Reason: Insomnia Allergies Allergies Allergy/AdvReac Type Severity Reaction Status Date / Time Unable to Assess Allergy Verified 03/25/24 21:15 Assessment & Plan Assessment & Plan (1) Schizophrenia: Status: Acute Code(s): F20.9 - Schizophrenia, unspecified Plan 03/26: risperidone 1/. collateral from mother. clarify legal circumstance/rolando's order. 03/27: refusing meds, not leaving his chair. urinating in cup beneath blanket. requesting immediate discharge. continue to offer medication. clarify legal circumstance and ability to involuntarily administer medication. diamond warning provided. 03/28: Sitting in chair in milieu. Per nursing, patient urinating in cups under blankets. Patient was notified that he must go to his room to use the toilet and can not urinate in common areas. Patient was able to walk down unit hallway with no assistance. Patient is requesting to have a wheelchair d/t being terrified of falling . Patient stated, I do not have any kind of condition. I am just worried about falling . Patient reports that he has not been eating much due to fear of being poisoned however, he would not elaborate as to who he believes is poisoning him. He reports at home he has been urinating in milk cartons and defecating in trash bags and having his mother dispose of these items. Patient agreed to take 1 mg of Risperdal PO; however, expressed paranoia towards RN about being a different medication/dosage despite being shown packaging. T/W obtained information from patient's mother, Chio; Chio reports patient has not been using the toilet for the past two years due to being afraid that snakes will get him and voices telling him the same. Chio reports, pt is also afraid of walking d/t fear of hitting his head. She reports patient has never been on antipsychotics and has only taken anti-anxiety medications for 3 weeks which patient discontinued. She denies history of inpatient psychiatric hospitalizations. She reports having guardianship due to patient being unable to care for self. 03/29: Observing pacing unit hallway. Keeping to self. Covering self with blanket. Per nursing, pt slept in chair in milieu for 5 hours last night. Refused medications last night and this morning. Pt reports he does not want to sleep in a bed d/t feeling more vulnerable when laying down . Patient reports he does not want to go into the bathroom because he is paranoid that something might happen in there or someone might be waiting for me in there . Pt's 3 day up 03/30/24; he is requesting to be discharged home. 03/30: Observed standing at nurses station throughout shift; not taking redirection from staff to please step away for pt confidentiality. Argumentative. 3 day up today; filed on; pt notified. Pt stated, you can't keep me here. I'm going to jose you and make your head spin 3 times! Your documents are not real! Refused Zyprexa. Per nursing, pt urinated in carton in unit hallway;continues to refuse utilizing bathroom. Per nursing, pt did not eat anything today. 03/31: Pacing in front of nurses station. disheveled, malodorous; encouraged to shower, however pt declined despite being offered shower chair and staff member to wait outside shower room if assistance is needed. Per nursing, pt urinated in cup and sensory room floor last evening. Pt continues to report paranoia regarding using bathroom; pt stated, I'm worried someone will be in the bathroom waiting for me because of who I am . When asked why he believes someone would want to hurt him; pt stated, I can't discuss that . denies SI/HI/VH/AH. He reports not eating d/t concerns that he may be poisoned by someone ; observed drinking water from water bottle. Pt offered Zyprexa PO per court ordered treatment plan; per nursing, pt initially refused then agreed to take. 04/01: Patient continues to stand or pace in front of nurses station. disheveled, malodorous; per nursing, pt urinated in trash in mileu last evening. T/W spoke to patient regarding using restroom on unit; pt continues to report concern that someone can try to kill me because of who I am and who my family is ; when asked why someone would hurt him. Pt stated, because we are well known in [place] and they may hurt me because of it ; pt unable to specify who they are. denies AH/VH. Pt was offered for staff member to examine restroom and stand outside to assure no one is waiting for him; however pt continues to decline. Patient stated, I feel like you guys are playing a psychotic game with me or that they are doing this for their entertainment . 04/02: Patient continues to present similar to days prior. He continues to report paranoia regarding using restroom, shower and eating. Pt stated, I urinated in the trash early in the morning ; he continues to state he will consider using restroom. Pt reports taking bites of breakfast this morning. denies any side effects from Zyprexa other than feeling tired; pt stated, I am feeling a bit calmer . Per nursing, pt slept in chair in [facility] for 7 hours last night. Will continue to build rapport. 04/03: Patient continues to report paranoia regarding using restroom, shower and eating. Pt was offered single room d/t continuous urinating in [facility]; pt declined. Pt stated, I don't think a single room would help. I'm still having the same thoughts . Pt reports he has increased his fluid intake with water, juice and milk; however he continues to report only take a few bites of food. 04/04: Discussed medications increases with pt which he refuses at this time. Focused on discharge, and where his belongings are being stored at this time. 04/05: Patient declined to meet with T/W in unit office; pt stated, I don't feel comfortable going into the office because I think someone would hurt me ; pt reassured no one would hurt him, however, he continued to decline. Met with pt in unit hallway. Patient reports he did not urinate yesterday; he was educated regarding medical complications that can occur with decreased intake of fluids and food. Pt stated, I know but it's not like I'm dying . Pt refused labs. Discussed various solutions of pt feeling safe to use restroom or shower. pt stated, I'm still worried someone is going to hurt me. I'm not sure who, but it's because I am along the lines of royalty and it's putting me in harms way if I use the bathroom, shower or eat . Pt reporting zyprexa is making him too tired ; plan to DC. start risperidal 1mg PO daily with plan to switch to PLAZA; discussed with pt. T/W spoke to patient's mother, Chio, who reports has not left the house in 2 years and has not bathed or used the restroom in a year. She expressed concern over his wellbeing of not drinking or eating. She plans on calling patient to encourage him increase fluid intake. 04/07: Pt continues similar to days prior. Pt reports he did not urinate yesterday. Refused labs again. Hearing was held today; Pt was commited. T/W informed pt of plan to increase risperidal. Pt to receive additional risperidal 1mg PO bedtime dose to night. Starting tomorrow, Increase: Risperidal 2mg PO bedtime. 04/08: Staying in common area, however, keeping to self. per nursing, pt urinated in multiple cups last evening in common area and declined to use restroom. Pt reports feeling frustrated about not being discharged ; T/W discussed plan with medications again. Pt requesting to be discharged home today; asking multiple staff. Pt continues to report paranoia regarding using toilet, shower, eating/drinking. Encouraged to allow labs. 04/10: No changes. Encourage ongoing med adherence especially for Risperdal. Also encourage elevating legs as per hospitalist evaluation on 04/06/2024. Ordering an extra large compression stockings. 04/11: Met with pt in unit office. Continues to stay in common areas. paranoid. Pt discussed paranoia regarding eating; pt stated, how do you know someone isn't trying to poison me? People in this hospital. Per nursing, ate 10% of one meal yesterday and 25% of one meal today, has not eaten anything otherwise. Patient continues to refuse labs; shower (pt reports he has not bathed himself since admission and refusing to change clothes). Declining to use bathroom. perseverating on discharge to go back home where I can continue doing these things and be more comfortable . Continues similar to days prior; ? possible cheeking, will switch to risperidal liquid. Increase dose to Risperidal 3mg PO bedtime. Wound consult ordered for bilateral legs 04/12: Met with pt in unit office. Continues to stay in common areas; declining to go into assigned room for any reason. He continues paranoid, anxious, fearful. Pt argumentative and requesting discharge since he has been able to meet with T/W in the unit office for the past 2 days. Discussed that pt does not allow for the door to be closed, continues with paranoia stating my safety is a concern if the door is closed . Declining bathroom and shower. Discussed change of medication to liquid d/t possible cheeking. 04/13: Pt continues paranoid, anxious, fearful. T/W and socially responsible investment adviser, Sabi, encouraged pt to walk into his room; lights were turned on to show no one was in the room and it was safe; however, pt continues to make paranoid statements of someone waiting to hurt him. Pt reports he did not urinate yesterday; discussed the importance of drinking fluids and eating meals. Per nursing, pt ate 5% of breakfast yesterday and declined lunch and dinner. Continue current tx plan. 04/14: Pt continues similar to days prior. Refusing to cross threshold into any room other than side office. Continues concerned that someone may hurt him if he goes into a room even if staff are with him. Per nursing, pt has not eaten or drank fluids today. He did urinate in trash can in the mil and continues to refuse using restroom; despite having access to multiple bathrooms. Continue current tx plan. 04/15: T/W and RN attempting to reassure patient of his safety to be able to cross threshold into his room. Continues to believe someone may be hiding in the room to hurt him. Argumentative, attempting to change topic when asked questions about challenging his anxiety and paranoia. Per nursing, pt continues to have poor intake. Pt reports he did not urinate yesterday 04/17: No changes 04/18: Met with Dr. Lorenzana present. Pt continues to decline to go into bedroom or restroom; was willing to meet in side office with door open. He continues to discuss his anxiety and paranoia regarding being attacked by someone or snakes . Pt states he does not believe to have a mental illness ; requesting to be discharged home. Pt re-educated on goal of treatment. 04/19: Pt continues similar to days prior. Patient was given single room however pt continues to decline to enter room despite not having a room mate. He reports not urinating or having a bowel movement yesterday or today. Risperidal increased 4mg PO bedtime; pt aware. Labs ordered for tomorrow for monitoring of medical status while being treated with antipsychotics medications; informed consent obtained from guardian and patient is aware that informed consent was obtained. 04/20: pt continues to decline to enter his single room. Chair was placed between hallway and bedroom threshold; pt stated, I'm not going in there because I'm worried I might if I sit down . Continues with paranoid delusions. denies any side effects from increase in risperidal. encouraged to take Ativan to help with anxiety. Declined to go into his room to receive leg treatment. Declined to use restroom. 04/21: Continues with paranoid delusions; pt stated, I won't go in there because someone wants to kill me. I don't know who exactly. I know this from the narrative I hear and the symbolism I see on TV and commercial trucks . Declined to go into his room to receive leg treatment. Declined to use restroom. Eating/drinking minimally. Spoke with patient's mother and guardian, Chio, via phone. Reviewed current treatment plan and labs. 04/22: Patient continues similar to days prior. Continues with paranoid delusions; Declined to go into his room to receive leg treatment. Declined to use restroom. Eating/drinking minimally. Patient encouraged to challenge anxiety. 04/23 continue tx. 04/24 continue tx. increase risperidone to 6mg po qhs. 04/25: Continues paranoid and delusional. Refusing to go into room; pt stated, If I go in there I can be hurt with or without knowing ; when asked to elaborate, pt stated, they might hurt me, without me knowing I was hurt . Declining to use bathroom; observed to have distended abdomen, KUB ordered, pt was willing to have imaging done; awaiting results. Pt was willing to go into treatment room to use bath wipes and clean himself with RN present. Ordered Lactulose to assist with constipation; pt states he will consider taking this. 04/26: Continues paranoid and delusional. Refusing to go into room, bathroom or use commode in room; urinated in unit hallway. Refused Lactulose this morning despite encouragement. Continue current tx plan. 04/27: Continue current regimen and plans 04/28/24 Cont risp monitor response cont behavioral plan for helping re ability to lie down to enter a room encourage inc liquids latulose enema if needed 04/29: Keeping to self. urinated in trash bin in unit office. continues to refuse to go into bedroom or bathroom. offered commode and staff bathroom in unit hallway; however continues to decline. paranoid, delusional. Refusing lactulose despite education and no BM. 04/30: Continue current management and treatment plan. 05/01: Continue current management and treatment plan. 05/02: Keeping to self. Continues to refuse to enter bed room. He continues to report paranoia of someone trying to kill me if I go into the room ; pt encouraged to take one step over threshold, however, declined to do so; discussed increase in risperdal. Risperidal increased to 8mg PO bedtime. Patient reports having a bowel movement over the weekend but states he had the commode moved to door threshold so that his legs were outside the room. Patient reports he feels my paranoia is less but is unable to give examples of what has changed. Patient reports cold symptoms; allowed for covid/flu/rsv swab, which are negative; declined medication for cold symptoms. 05/03: Continues similar to days prior. paranoid. delusional. reviewed treatment plan with patient. continues to not use restroom, or enter room. continue current tx plan. 05/04/24- ongoing bizarre behavior and refusal to do ADLs independently 05/05: Pt states he feels something from med focused on discharge refusing to engage push againt behaviors that are self destructive 05/06: Lingering around nurses station today. Continues to refuse to enter bedroom or bathroom. Pt reports worry he may be killed if entering room; states he saw messages through the TV on [place], but would not go into detail. Discussed changing medication to Haldol d/t Risperidal being ineffective in paranoid delusions. Decrease Risperidal to 4mg PO bedtime. Start: Haldol 5mg PO bedtime Ativan 0.5mg PO bedtime T/W and Dr. Lorenzana spoke to patients mother, Chio, discussed medications and treatment plan. Ciho is aware of medication changes. 05/09: Continues to linger around nurses station today. Continues paranoid and delusional. Argumentative today. Refusing to elevate legs on chair despite swelling; pt stated, I don't want to elevate my legs because I don't want to . Per nursing, last BM was 05/06/24. Pt continues to decline to go into room or bathroom even though he understands this will allow him to challenge his anxiety/paranoid withl the hopes of being discharges home. Patient stated, I'm not going to play with fate by going into the bathroom. All of you providers are compromising my safety . pt denies side effects from medication changes. Risperidal decreased to 2mg PO bedtime. Haldol increased to 10mg PO bedtime; pt aware. Encouraged to take Ativan to help with increased anxiety. 05/10: Patient observed lingering around nurses station; was asked by nursing to move multiple times for patient confidentiality. He continues anxious, paranoid and grandiose; patient stated, I told you I am a targeted person. I am a [place]. I do not understand why you would put me in dangers way and want me to use the bathroom . Patient continues to refuse to elevate legs; when asked why; patient stated, I want to see what happens ; patient educated regarding importance of elevating legs to decrease swelling. He was seen by hospitalist; please see note. Continue current treatment plan. Patient educated on: diagnosis, medication risk/benefits, therapeutic strategies and medical condition Reason for continued inpatient stay Substantial Risk for: med/psych decompensation Time Spent With Patient Time: Total time managing care of this patient today _20___ minutes.
--- NOTE | 2024-05-10 15:26 | HO.PM.IMPN ---
Subjective Subjective Date of Service: 05/10/24 Interval History: patient was seen and evaluated increase LE swelling with no pain, fever or tenderness Review of Systems reports constipation fear to walk to bathroom Physical Exam Vital Signs: Vital Signs: Last Vital Signs Temp 98.3 F 05/09/24 20:00 Pulse 70 05/09/24 20:00 Resp 16 05/09/24 20:00 BP 106/60 05/09/24 20:00 Pulse Ox 98 05/09/24 20:00 O2 Del Method Room Air 05/09/24 20:00 BMI result Body Mass Index 28.5 Const: Other: Constitutional : interactive, not in distress Cardiovascular : no JVP, no lower extremity edema Respiratory : bilateral chest movement, not in resp distress Gastrointestinal: soft, lax, Non tender Skin : Warm, Dry, bilateral stasis dermatitis with dry skin and dry wound in RLL. no signs of infection. no tenderness Neurological : Alert & oriented , No focal deficit, disheveled , long nails Objective Data Active Medications Acetaminophen (Acetaminophen 325 Mg Tablet) 650 mg PO Q6H PRN PRN Reason: Headache/Pain Mild Scale (1-3) Al Hydroxide/Mg Hydroxide (Magnesium Hydrox/Alum Hydrox 30 Ml Oral.Susp) 30 ml PO Q6H PRN PRN Reason: Heartburn/Nausea Benztropine Mesylate (Benztropine Mesylate 1 Mg Tablet) 1 mg PO DAILY PRN PRN Reason: Extrapyramidal Effects Betamethasone Dipropion Augmented (Betamethasone Dip Aug 0.05% Cr 15 Gm Tube) 1 appl TOPICAL BID LENI; Protocol Last Admin: 05/10/24 11:22 Dose: Not Given Documented By: ANNITATALAsha Non-Admin Reason: Patient Refused Haloperidol Lactate (Haloperidol Lactate 5 Mg/Ml Vial) 5 mg IM DAILY PRN PRN Reason: Psychosis Haloperidol Lactate (Haloperidol Lactate Oral Conc 10 Mg/5 Ml Oral.Conc) 10 mg PO BEDTIME LENI Last Admin: 05/09/24 22:21 Dose: 10 mg Documented By: RYAN Hydroxyzine HCl (Hydroxyzine Hcl 25 Mg Tablet) 25 mg PO Q6H PRN PRN Reason: Anxiety Lactic Acid (Ammonium Lactate 12 % Cream 140 Gm Tube) 1 appl TOPICAL BID PRN; Protocol PRN Reason: Dry, scaly skin Last Admin: 04/18/24 20:53 Dose: 1 appl Documented By: AMILCAR Lactulose (Lactulose 20 Gm/30 Ml Solution) 40 gm PO BID [facility] Last Admin: 05/10/24 11:22 Dose: Not Given Documented By: LAXMI Non-Admin Reason: Patient Refused Lorazepam (Lorazepam 0.5 Mg Tablet) 0.5 mg PO BEDTIME [facility] Last Admin: 05/09/24 22:12 Dose: Not Given Documented By: AMILCAR Non-Admin Reason: Patient Refused Magnesium Hydroxide (Milk Of Magnesia 30 Ml Oral.Susp) 30 ml PO DAILY PRN PRN Reason: Constipation Risperidone (Risperidone Oral Kami 1 Mg/Ml Solution) 2 mg PO BEDTIME [facility] Last Admin: 05/09/24 22:23 Dose: 2 mg Documented By: AMILCAR Trazodone HCl (Trazodone Hcl 50 Mg Tablet) 50 mg PO BEDTIME MRX1 PRN PRN Reason: Insomnia Labs 04/20/24 08:23 04/20/24 08:23 Assessment and Plan (1) Lower extremity edema: Status: Acute Plan A 38 years old Admitted for paranoia worsening Stasis dermatitis advised to watch salt and fluid intake Lasix daily PING wrap Ammonium lactate lotion wound care consult Constipation start Metamucil Thank you for the consult will continue to follow with you Quality Stroke Does the patient have a stroke diagnosis?: No VTE Prior VTE?: No VTE Risk Level:: Medical - low VTE Device Contraindication: Treatment Not Indicated VTE Drug Contraindication: Treatment Not Indicated
[2024-05-10 20:00] VITALS: BP 105/63; PULSE 75; RESP 18; TEMP 36.5; O2SAT 98
[2024-05-10] MEDS: risperiDONE Oral Sol 1 MG/ML SOLUTION 2 MG PO (22:07)
[2024-05-10] MEDS: Haloperidol Lactate Oral Conc 10 MG/5 ML ORAL.CONC PO (22:07)
[2024-05-11 08:37] VITALS: BP 118/85; PULSE 80; RESP 16; TEMP 36.4; O2SAT 99
--- NOTE | 2024-05-11 09:15 | HO.PSYCHPN ---
Subjective Subjective Date of Service: 05/11/24 Reason For Visit: Schizophrenia Subjective Notes: Section 8 Interim History: Patient continues similar to yesterday; anxious, paranoid, delusional, grandiose. Refusing leg care, elevate legs, lasix, teds; despite education from T/W and nursing. Per RN, pt had bowel movement but would not sit on commode, instead he removed bucket from commode and placed it on the floor in the bedroom door threshold and defecated while slightly bending at the knees. When done, pt went to pull up pants but was suggested to wipe self from RN and agreed to do so but would not wash hands afterwards. When T/W asked patient why he would not sit on commode; pt stated, you know my situation . DC risperidal. Increase Haldol to 15mg PO bedtime;pt aware. Medication Compliance: Intermittent Side effects from medications: No Attending Groups: No Review of Systems Constitutional: Reports as per HPI Eyes: Reports as per HPI Reports as per HPI Cardiovascular: Reports as per HPI Respiratory: Reports as per HPI Gastrointestinal: Reports as per HPI Genitourinary: Reports as per HPI Musculoskeletal: Reports as per HPI Skin/Breast: Reports as per HPI Reports as per HPI Psychiatric: Reports as per HPI Endocrine: Reports as per HPI Hematologic/Lymphatic: Reports as per HPI Allergic/Immunologic: Reports as per HPI Mental Status Exam Mental Status Exam Narrative: Pt is alert and oriented; behavior is calm but argumentative; dressed in hospital attire, malodorous, disheveled; mood is described as not good ; eye contact appropriate; Speech is normal rate, volume and not pressured; focused on discharge; paranoid, delusional, grandiose. denies SI/HI. Insight and judgment are poor. Diagnostics Vital Signs (24Hr): Vital Signs - 24 hr 05/10/24 20:00 05/11/24 08:37 Temperature 97.7 F 97.6 F Pulse Rate 75 80 Respiratory Rate 18 16 Blood Pressure 105/63 118/85 Pulse Oximetry 98 99 Oxygen Delivery Method Room Air Room Air BMI result Body Mass Index 28.5 Labs 04/20/24 08:23 04/20/24 08:23 Imaging Radiology Impressions: ITS Impressions KUB X-Ray 04/25/24 14:00 IMPRESSION: Large stool burden overall. Electronically signed by: Corin Escoto DO 04/25/2024 07:31 PM [facility] [place] Medications Medications Current Medications Acetaminophen (Acetaminophen 325 Mg Tablet) 650 mg PO Q6H PRN PRN Reason: Headache/Pain Mild Scale (1-3) Al Hydroxide/Mg Hydroxide (Magnesium Hydrox/Alum Hydrox 30 Ml Oral.Susp) 30 ml PO Q6H PRN PRN Reason: Heartburn/Nausea Benztropine Mesylate (Benztropine Mesylate 1 Mg Tablet) 1 mg PO DAILY PRN PRN Reason: Extrapyramidal Effects Betamethasone Dipropion Augmented (Betamethasone Dip Aug 0.05% Cr 15 Gm Tube) 1 appl TOPICAL BID LENI; Protocol Last Admin: 05/11/24 08:33 Dose: Not Given Furosemide (Furosemide 20 Mg Tablet) 20 mg PO DAILY LENI; Protocol Last Admin: 05/11/24 08:33 Dose: Not Given Haloperidol Lactate (Haloperidol Lactate 5 Mg/Ml Vial) 5 mg IM DAILY PRN PRN Reason: Psychosis Haloperidol Lactate (Haloperidol Lactate Oral Conc 10 Mg/5 Ml Oral.Conc) 10 mg PO BEDTIME LENI Last Admin: 05/10/24 22:07 Dose: 10 mg Hydroxyzine HCl (Hydroxyzine Hcl 25 Mg Tablet) 25 mg PO Q6H PRN PRN Reason: Anxiety Lactic Acid (Ammonium Lactate 12 % Cream 140 Gm Tube) 1 appl TOPICAL BID PRN; Protocol PRN Reason: Dry, scaly skin Last Admin: 04/18/24 20:53 Dose: 1 appl Lactic Acid (Ammonium Lactate 12 % Lotion 226 Gm Bottle) 1 appl TOPICAL DAILY LENI; Protocol Last Admin: 05/11/24 08:33 Dose: Not Given Lactulose (Lactulose 20 Gm/30 Ml Solution) 40 gm PO BID LENI Last Admin: 05/11/24 08:33 Dose: Not Given Lorazepam (Lorazepam 0.5 Mg Tablet) 0.5 mg PO BEDTIME LENI Last Admin: 05/10/24 21:58 Dose: Not Given Magnesium Hydroxide (Milk Of Magnesia 30 Ml Oral.Susp) 30 ml PO DAILY PRN PRN Reason: Constipation Psyllium Hydrophilic Mucilloid (Psyllium Seed 3.7 Gm Packet) 3.7 gm PO DAILY LENI Last Admin: 05/11/24 08:34 Dose: Not Given Risperidone (Risperidone Oral Kami 1 Mg/Ml Solution) 2 mg PO BEDTIME LENI Last Admin: 05/10/24 22:07 Dose: 2 mg Trazodone HCl (Trazodone Hcl 50 Mg Tablet) 50 mg PO BEDTIME MRX1 PRN PRN Reason: Insomnia Allergies Allergies Allergy/AdvReac Type Severity Reaction Status Date / Time Unable to Assess Allergy Verified 03/25/24 21:15 Assessment & Plan Assessment & Plan (1) Lower extremity edema: Status: Acute Code(s): R60.0 - Localized edema (2) Schizophrenia: Status: Acute Code(s): F20.9 - Schizophrenia, unspecified Plan 03/26: risperidone /. collateral from mother. clarify legal circumstance/rolando's order. 03/27: refusing meds, not leaving his chair. urinating in cup beneath blanket. requesting immediate discharge. continue to offer medication. clarify legal circumstance and ability to involuntarily administer medication. diamond warning provided. 03/28: Sitting in chair in milieu. Per nursing, patient urinating in cups under blankets. Patient was notified that he must go to his room to use the toilet and can not urinate in common areas. Patient was able to walk down unit hallway with no assistance. Patient is requesting to have a wheelchair d/t being terrified of falling . Patient stated, I do not have any kind of condition. I am just worried about falling . Patient reports that he has not been eating much due to fear of being poisoned however, he would not elaborate as to who he believes is poisoning him. He reports at home he has been urinating in milk cartons and defecating in trash bags and having his mother dispose of these items. Patient agreed to take 1 mg of Risperdal PO; however, expressed paranoia towards RN about being a different medication/dosage despite being shown packaging. T/W obtained information from patient's mother, Chio; Chio reports patient has not been using the toilet for the past two years due to being afraid that snakes will get him and voices telling him the same. Chio reports, pt is also afraid of walking d/t fear of hitting his head. She reports patient has never been on antipsychotics and has only taken anti-anxiety medications for 3 weeks which patient discontinued. She denies history of inpatient psychiatric hospitalizations. She reports having guardianship due to patient being unable to care for self. 03/29: Observing pacing unit hallway. Keeping to self. Covering self with blanket. Per nursing, pt slept in chair in milieu for 5 hours last night. Refused medications last night and this morning. Pt reports he does not want to sleep in a bed d/t feeling more vulnerable when laying down . Patient reports he does not want to go into the bathroom because he is paranoid that something might happen in there or someone might be waiting for me in there . Pt's 3 day up 03/30/24; he is requesting to be discharged home. 03/30: Observed standing at nurses station throughout shift; not taking redirection from staff to please step away for pt confidentiality. Argumentative. 3 day up today; filed on; pt notified. Pt stated, you can't keep me here. I'm going to jose you and make your head spin 3 times! Your documents are not real! Refused Zyprexa. Per nursing, pt urinated in carton in unit hallway;continues to refuse utilizing bathroom. Per nursing, pt did not eat anything today. 03/31: Pacing in front of nurses station. disheveled, malodorous; encouraged to shower, however pt declined despite being offered shower chair and staff member to wait outside shower room if assistance is needed. Per nursing, pt urinated in cup and sensory room floor last evening. Pt continues to report paranoia regarding using bathroom; pt stated, I'm worried someone will be in the bathroom waiting for me because of who I am . When asked why he believes someone would want to hurt him; pt stated, I can't discuss that . denies SI/HI/VH/AH. He reports not eating d/t concerns that he may be poisoned by someone ; observed drinking water from water bottle. Pt offered Zyprexa PO per court ordered treatment plan; per nursing, pt initially refused then agreed to take. 04/01: Patient continues to stand or pace in front of nurses station. disheveled, malodorous; per nursing, pt urinated in trash in mileu last evening. T/W spoke to patient regarding using restroom on unit; pt continues to report concern that someone can try to kill me because of who I am and who my family is ; when asked why someone would hurt him. Pt stated, because we are well known in [place] and they may hurt me because of it ; pt unable to specify who they are. denies AH/VH. Pt was offered for staff member to examine restroom and stand outside to assure no one is waiting for him; however pt continues to decline. Patient stated, I feel like you guys are playing a psychotic game with me or that they are doing this for their entertainment . 04/02: Patient continues to present similar to days prior. He continues to report paranoia regarding using restroom, shower and eating. Pt stated, I urinated in the trash early in the morning ; he continues to state he will consider using restroom. Pt reports taking bites of breakfast this morning. denies any side effects from Zyprexa other than feeling tired; pt stated, I am feeling a bit calmer . Per nursing, pt slept in chair in [facility] for 7 hours last night. Will continue to build rapport. 04/03: Patient continues to report paranoia regarding using restroom, shower and eating. Pt was offered single room d/t continuous urinating in [facility]; pt declined. Pt stated, I don't think a single room would help. I'm still having the same thoughts . Pt reports he has increased his fluid intake with water, juice and milk; however he continues to report only take a few bites of food. 04/04: Discussed medications increases with pt which he refuses at this time. Focused on discharge, and where his belongings are being stored at this time. 04/05: Patient declined to meet with T/W in unit office; pt stated, I don't feel comfortable going into the office because I think someone would hurt me ; pt reassured no one would hurt him, however, he continued to decline. Met with pt in unit hallway. Patient reports he did not urinate yesterday; he was educated regarding medical complications that can occur with decreased intake of fluids and food. Pt stated, I know but it's not like I'm dying . Pt refused labs. Discussed various solutions of pt feeling safe to use restroom or shower. pt stated, I'm still worried someone is going to hurt me. I'm not sure who, but it's because I am along the lines of royalty and it's putting me in harms way if I use the bathroom, shower or eat . Pt reporting zyprexa is making him too tired ; plan to DC. start risperidal 1mg PO daily with plan to switch to PLAZA; discussed with pt. T/W spoke to patient's mother, Chio, who reports has not left the house in 2 years and has not bathed or used the restroom in a year. She expressed concern over his wellbeing of not drinking or eating. She plans on calling patient to encourage him increase fluid intake. 04/07: Pt continues similar to days prior. Pt reports he did not urinate yesterday. Refused labs again. Hearing was held today; Pt was commited. T/W informed pt of plan to increase risperidal. Pt to receive additional risperidal 1mg PO bedtime dose to night. Starting tomorrow, Increase: Risperidal 2mg PO bedtime. 04/08: Staying in common area, however, keeping to self. per nursing, pt urinated in multiple cups last evening in common area and declined to use restroom. Pt reports feeling frustrated about not being discharged ; T/W discussed plan with medications again. Pt requesting to be discharged home today; asking multiple staff. Pt continues to report paranoia regarding using toilet, shower, eating/drinking. Encouraged to allow labs. 04/10: No changes. Encourage ongoing med adherence especially for Risperdal. Also encourage elevating legs as per hospitalist evaluation on 04/06/2024. Ordering an extra large compression stockings. 04/11: Met with pt in unit office. Continues to stay in common areas. paranoid. Pt discussed paranoia regarding eating; pt stated, how do you know someone isn't trying to poison me? People in this hospital. Per nursing, ate 10% of one meal yesterday and 25% of one meal today, has not eaten anything otherwise. Patient continues to refuse labs; shower (pt reports he has not bathed himself since admission and refusing to change clothes). Declining to use bathroom. perseverating on discharge to go back home where I can continue doing these things and be more comfortable . Continues similar to days prior; ? possible cheeking, will switch to risperidal liquid. Increase dose to Risperidal 3mg PO bedtime. Wound consult ordered for bilateral legs 04/12: Met with pt in unit office. Continues to stay in common areas; declining to go into assigned room for any reason. He continues paranoid, anxious, fearful. Pt argumentative and requesting discharge since he has been able to meet with T/W in the unit office for the past 2 days. Discussed that pt does not allow for the door to be closed, continues with paranoia stating my safety is a concern if the door is closed . Declining bathroom and shower. Discussed change of medication to liquid d/t possible cheeking. 04/13: Pt continues paranoid, anxious, fearful. T/W and social media manager, Sabi, encouraged pt to walk into his room; lights were turned on to show no one was in the room and it was safe; however, pt continues to make paranoid statements of someone waiting to hurt him. Pt reports he did not urinate yesterday; discussed the importance of drinking fluids and eating meals. Per nursing, pt ate 5% of breakfast yesterday and declined lunch and dinner. Continue current tx plan. 04/14: Pt continues similar to days prior. Refusing to cross threshold into any room other than side office. Continues concerned that someone may hurt him if he goes into a room even if staff are with him. Per nursing, pt has not eaten or drank fluids today. He did urinate in trash can in the mileu and continues to refuse using restroom; despite having access to multiple bathrooms. Continue current tx plan. 04/15: T/W and RN attempting to reassure patient of his safety to be able to cross threshold into his room. Continues to believe someone may be hiding in the room to hurt him. Argumentative, attempting to change topic when asked questions about challenging his anxiety and paranoia. Per nursing, pt continues to have poor intake. Pt reports he did not urinate yesterday 04/17: No changes 04/18: Met with Dr. Lorenzana present. Pt continues to decline to go into bedroom or restroom; was willing to meet in side office with door open. He continues to discuss his anxiety and paranoia regarding being attacked by someone or snakes . Pt states he does not believe to have a mental illness ; requesting to be discharged home. Pt re-educated on goal of treatment. 04/19: Pt continues similar to days prior. Patient was given single room however pt continues to decline to enter room despite not having a room mate. He reports not urinating or having a bowel movement yesterday or today. Risperidal increased 4mg PO bedtime; pt aware. Labs ordered for tomorrow for monitoring of medical status while being treated with antipsychotics medications; informed consent obtained from guardian and patient is aware that informed consent was obtained. 04/20: pt continues to decline to enter his single room. Chair was placed between hallway and bedroom threshold; pt stated, I'm not going in there because I'm worried I might if I sit down . Continues with paranoid delusions. denies any side effects from increase in risperidal. encouraged to take Ativan to help with anxiety. Declined to go into his room to receive leg treatment. Declined to use restroom. 04/21: Continues with paranoid delusions; pt stated, I won't go in there because someone wants to kill me. I don't know who exactly. I know this from the narrative I hear and the symbolism I see on TV and commercial trucks . Declined to go into his room to receive leg treatment. Declined to use restroom. Eating/drinking minimally. Spoke with patient's mother and guardian, Chio, via phone. Reviewed current treatment plan and labs. 04/22: Patient continues similar to days prior. Continues with paranoid delusions; Declined to go into his room to receive leg treatment. Declined to use restroom. Eating/drinking minimally. Patient encouraged to challenge anxiety. 04/23 continue tx. 04/24 continue tx. increase risperidone to 6mg po qhs. 04/25: Continues paranoid and delusional. Refusing to go into room; pt stated, If I go in there I can be hurt with or without knowing ; when asked to elaborate, pt stated, they might hurt me, without me knowing I was hurt . Declining to use bathroom; observed to have distended abdomen, KUB ordered, pt was willing to have imaging done; awaiting results. Pt was willing to go into treatment room to use bath wipes and clean himself with RN present. Ordered Lactulose to assist with constipation; pt states he will consider taking this. 04/26: Continues paranoid and delusional. Refusing to go into room, bathroom or use commode in room; urinated in unit hallway. Refused Lactulose this morning despite encouragement. Continue current tx plan. 04/27: Continue current regimen and plans 04/28/24 Cont risp monitor response cont behavioral plan for helping re ability to lie down to enter a room encourage inc liquids latulose enema if needed 04/29: Keeping to self. urinated in trash bin in unit office. continues to refuse to go into bedroom or bathroom. offered commode and staff bathroom in unit hallway; however continues to decline. paranoid, delusional. Refusing lactulose despite education and no BM. 04/30: Continue current management and treatment plan. 05/01: Continue current management and treatment plan. 05/02: Keeping to self. Continues to refuse to enter bed room. He continues to report paranoia of someone trying to kill me if I go into the room ; pt encouraged to take one step over threshold, however, declined to do so; discussed increase in risperdal. Risperidal increased to 8mg PO bedtime. Patient reports having a bowel movement over the weekend but states he had the commode moved to door threshold so that his legs were outside the room. Patient reports he feels my paranoia is less but is unable to give examples of what has changed. Patient reports cold symptoms; allowed for covid/flu/rsv swab, which are negative; declined medication for cold symptoms. 05/03: Continues similar to days prior. paranoid. delusional. reviewed treatment plan with patient. continues to not use restroom, or enter room. continue current tx plan. 05/04/24- ongoing bizarre behavior and refusal to do ADLs independently 05/05: Pt states he feels something from med focused on discharge refusing to engage push againt behaviors that are self destructive 05/06: Lingering around nurses station today. Continues to refuse to enter bedroom or bathroom. Pt reports worry he may be killed if entering room; states he saw messages through the TV on [place], but would not go into detail. Discussed changing medication to Haldol d/t Risperidal being ineffective in paranoid delusions. Decrease Risperidal to 4mg PO bedtime. Start: Haldol 5mg PO bedtime Ativan 0.5mg PO bedtime T/W and Dr. Lorenzana spoke to patients mother, Chio, discussed medications and treatment plan. Chio is aware of medication changes. 05/09: Continues to linger around nurses station today. Continues paranoid and delusional. Argumentative today. Refusing to elevate legs on chair despite swelling; pt stated, I don't want to elevate my legs because I don't want to . Per nursing, last BM was 05/06/24. Pt continues to decline to go into room or bathroom even though he understands this will allow him to challenge his anxiety/paranoid withl the hopes of being discharges home. Patient stated, I'm not going to play with fate by going into the bathroom. All of you providers are compromising my safety . pt denies side effects from medication changes. Risperidal decreased to 2mg PO bedtime. Haldol increased to 10mg PO bedtime; pt aware. Encouraged to take Ativan to help with increased anxiety. 05/10: Patient observed lingering around nurses station; was asked by nursing to move multiple times for patient confidentiality. He continues anxious, paranoid and grandiose; patient stated, I told you I am a targeted person. I am a [place]. I do not understand why you would put me in dangers way and want me to use the bathroom . Patient continues to refuse to elevate legs; when asked why; patient stated, I want to see what happens ; patient educated regarding importance of elevating legs to decrease swelling. He was seen by hospitalist; please see note. Continue current treatment plan. 05/11: Patient continues similar to yesterday; anxious, paranoid, delusional, grandiose. Refusing leg care, elevate legs, lasix, teds; despite education from T/W and nursing. Per RN, pt had bowel movement but would not sit on commode, instead he removed bucket from commode and placed it on the floor in the bedroom door threshold and defecated while slightly bending at the knees. When done, pt went to pull up pants but was suggested to wipe self from RN and agreed to do so but would not wash hands afterwards. When T/W asked patient why he would not sit on commode; pt stated, you know my situation . DC risperidal. Increase Haldol to 15mg PO bedtime;pt aware. Patient educated on: diagnosis, medication risk/benefits and medical condition Reason for continued inpatient stay Substantial Risk for: med/psych decompensation Time Spent With Patient Time: Total time managing care of this patient today _20___ minutes.
--- NOTE | 2024-05-11 11:33 | PC.NURSE ---
Patient approached staff stating he needed to void. Accompanied patient to his room, patient utilized commode to void, did not enter room. Stood in threshold of door way, voided large amount of concentrated urine. States he should try to move his bowels. Appeared to place bucket of commode on floor, appearing to have one foot completely in room and moved his bowels, fecal excrement observed in bucket. Patient did not sit on commode, or initially wipe self. Offered patient toilet paper upon which he did wipe self, did not wash hands following BM. [place] held up behind patient to allow for privacy.
--- NOTE | 2024-05-11 16:14 | HO.WOUND ---
Wound Consult: Follow up 38yr old?male admitted to [facility] on 03/25/24 to the Adult Behavioral Health Unit - See progress notes and H&P for detailed history.? New wound consult placed for Bilateral Lower legs.? Patient mildly agreeable to assessment, patient was seen in the communca area refused treatment room. The left leg was not able to be assessed as the pant leg was not able to move up his lower leg due to swelling. The right leg was minimally assessed he refused sock removal and limited physical assessment. He refused to sit in a chair for proper assessment. The leg was noted for significant swelling and red maroon pigmentation, worsening since last assessment in early April. He denies pain and neuropathy at this time. He allowed some palpation but very minimal. He did not want the thick scaling tissue touched. Chart review reveals he is resistant and refuses care interventions suggested. Patient was educated to the importance of the interventions. He reported refusal because he wanted off the unit and admission to the medical unit. He was educated the topical interventions would be the same - he said he would not be doing the interventions at this time. Multiple attempts and different ways of saying the same thing were attempted to aid in him allowing care and interventions to take place. He was asked by this blog writer what we could do to help him comply with these interventions he reported he would not allow the interventions while on the medical unit. The conversation continued to hughes around the same concern of getting off the unit. We talked of a variety of subjects including his fear of the room and bathroom and his level of constipation. TT with Susan Elias NP regarding the consultation detailed noted above. No new topical recommendations needed. Lower Leg elevation will have the biggest impact on the patients lower leg swelling. Detailed from previous assessment as follows: Bilateral Lower legs noted for red swollen lower legs, on both legs there are thick hyperkeratotic patches, yellow guzmán in color. The patch is lifting and will likely be easily removed however the patient refused me to remove given he felt it would worsen. We discussed the plaques trapping moisture such as sweat and oil beneath and creating an open wound on the skin. He reports he prefers to keep the scaling patch in place. We discussed elevating his lower legs periodically throughout the day and to lay down to sleep, as this will aid in the swelling reduction. He would benefit from compression therapy - discussed with staff to investigate if Edema wear stockings can be ordered for his use. He would be size medium to start and then would likely be able to transition down to size small. These can be obtained from the following website. [email or web address] See photo in chart. Bilateral Lower Legs Etiology: Significant swelling with Venous Dermatitis with hyperkeratotic plaque?? Wound Bed: no open wounds noted - there are lateral thick yellow plaques noted Drainage / Odor: None noted Edges: ? irregular Dianne wound: red firm swollen lower legs, +pp, denies neuropathy, No Induration, Fluctuance noted Pain: denies Goals of Treatment: ? Elevation and compression - continue with topical steroid ordered by provider and ammonium lactate cream / lotion per provider order. Recommendations: 1. Bilateral Lower Legs - Elevate lower legs at night and periodically throughout the day. Routine cleansing with soap and water (shower is best), pat dry. Apply topical steroid and Ammonium lactate per provider orders. If available: Edema Wear Compression Stockings ? Edema Wear compression garments should be applied first thing in the morning and may be removed at night when legs are elevated in bed.? Hand wash and hang dry.? Stockings should be worn from the base of the toes to just below the knee.? Fold over at end to prevent rolling.? They are disposable after about 2 weeks or regular use. Re-consult wound care Nurse for wound deterioration or wound changes.
[2024-05-11 20:00] VITALS: BP 97/66; PULSE 97; RESP 16; TEMP 36.8; O2SAT 97
[2024-05-11] MEDS: Haloperidol Lactate Oral Conc 10 MG/5 ML ORAL.CONC 15 MG PO (21:28)
[2024-05-12 08:00] VITALS: BP 111/61; PULSE 82; RESP 14; TEMP 37.2; O2SAT 99
--- NOTE | 2024-05-12 09:50 | HO.PSYCHPN ---
Subjective Subjective Date of Service: 05/12/24 Reason For Visit: Schizophrenia Subjective Notes: Section 8 Interim History: anxious, paranoid, delusional, grandiose. Refusing leg care, elevate legs, lasix, teds; continued to be educated of importance. Pt stated, I'm not elevating my legs because they are not umcomfortable right now and I won't take the Lasix because I'm worried about losing too much water in my body. I won't take it . Continues to linger around nurses station; was asked by nursing to move away d/t pt confidentiality but would only take a step away for a short period before returning. T/W spoke to patient's mother, Chio, regarding treatment plan. Medication Compliance: Intermittent Side effects from medications: No Attending Groups: No Review of Systems Constitutional: Reports as per HPI Eyes: Reports as per HPI Reports as per HPI Cardiovascular: Reports as per HPI Respiratory: Reports as per HPI Gastrointestinal: Reports as per HPI Genitourinary: Reports as per HPI Musculoskeletal: Reports as per HPI Skin/Breast: Reports as per HPI Reports as per HPI Psychiatric: Reports as per HPI Endocrine: Reports as per HPI Hematologic/Lymphatic: Reports as per HPI Allergic/Immunologic: Reports as per HPI Mental Status Exam Mental Status Exam Narrative: Pt is alert and oriented; behavior is calm but argumentative; dressed in hospital attire, malodorous, disheveled; mood is described as not good ; eye contact appropriate; Speech is normal rate, volume and not pressured; focused on discharge; paranoid, delusional, grandiose. denies SI/HI. Insight and judgment are poor. Diagnostics Vital Signs (24Hr): Vital Signs - 24 hr 05/11/24 20:00 05/12/24 08:00 Temperature 98.3 F 98.9 F Pulse Rate 97 82 Respiratory Rate 16 14 Blood Pressure 97/66 111/61 Pulse Oximetry 97 99 Oxygen Delivery Method Room Air Room Air BMI result Body Mass Index 28.5 Labs 04/20/24 08:23 04/20/24 08:23 Imaging Radiology Impressions: ITS Impressions KUB X-Ray 04/25/24 14:00 IMPRESSION: Large stool burden overall. Electronically signed by: Corin Escoto DO 04/25/2024 07:31 PM EST Medications Medications Current Medications Acetaminophen (Acetaminophen 325 Mg Tablet) 650 mg PO Q6H PRN PRN Reason: Headache/Pain Mild Scale (1-3) Al Hydroxide/Mg Hydroxide (Magnesium Hydrox/Alum Hydrox 30 Ml Oral.Susp) 30 ml PO Q6H PRN PRN Reason: Heartburn/Nausea Benztropine Mesylate (Benztropine Mesylate 1 Mg Tablet) 1 mg PO DAILY PRN PRN Reason: Extrapyramidal Effects Betamethasone Dipropion Augmented (Betamethasone Dip Aug 0.05% Cr 15 Gm Tube) 1 appl TOPICAL BID LENI; Protocol Last Admin: 05/12/24 09:08 Dose: Not Given Furosemide (Furosemide 20 Mg Tablet) 20 mg PO DAILY LENI; Protocol Last Admin: 05/12/24 09:08 Dose: Not Given Haloperidol Lactate (Haloperidol Lactate 5 Mg/Ml Vial) 5 mg IM DAILY PRN PRN Reason: Psychosis Haloperidol Lactate (Haloperidol Lactate Oral Conc 10 Mg/5 Ml Oral.Conc) 15 mg PO BEDTIME LENI Last Admin: 05/11/24 21:28 Dose: 15 mg Hydroxyzine HCl (Hydroxyzine Hcl 25 Mg Tablet) 25 mg PO Q6H PRN PRN Reason: Anxiety Lactic Acid (Ammonium Lactate 12 % Cream 140 Gm Tube) 1 appl TOPICAL BID PRN; Protocol PRN Reason: Dry, scaly skin Last Admin: 04/18/24 20:53 Dose: 1 appl Lactic Acid (Ammonium Lactate 12 % Lotion 226 Gm Bottle) 1 appl TOPICAL DAILY LENI; Protocol Last Admin: 05/12/24 09:08 Dose: Not Given Lactulose (Lactulose 20 Gm/30 Ml Solution) 40 gm PO BID LENI Last Admin: 05/12/24 09:09 Dose: Not Given Lorazepam (Lorazepam 0.5 Mg Tablet) 0.5 mg PO BEDTIME LENI Last Admin: 05/11/24 21:05 Dose: Not Given Magnesium Hydroxide (Milk Of Magnesia 30 Ml Oral.Susp) 30 ml PO DAILY PRN PRN Reason: Constipation Psyllium Hydrophilic Mucilloid (Psyllium Seed 3.7 Gm Packet) 3.7 gm PO DAILY LENI Last Admin: 05/12/24 09:09 Dose: Not Given Trazodone HCl (Trazodone Hcl 50 Mg Tablet) 50 mg PO BEDTIME MRX1 PRN PRN Reason: Insomnia Allergies Allergies Allergy/AdvReac Type Severity Reaction Status Date / Time Unable to Assess Allergy Verified 03/25/24 21:15 Assessment & Plan Assessment & Plan (1) Schizophrenia: Status: Acute Code(s): F20.9 - Schizophrenia, unspecified (2) Lower extremity edema: Status: Acute Code(s): R60.0 - Localized edema Plan 03/26: risperidone 1/. collateral from mother. clarify legal circumstance/rolando's order. 03/27: refusing meds, not leaving his chair. urinating in cup beneath blanket. requesting immediate discharge. continue to offer medication. clarify legal circumstance and ability to involuntarily administer medication. diamond warning provided. 03/28: Sitting in chair in milieu. Per nursing, patient urinating in cups under blankets. Patient was notified that he must go to his room to use the toilet and can not urinate in common areas. Patient was able to walk down unit hallway with no assistance. Patient is requesting to have a wheelchair d/t being terrified of falling . Patient stated, I do not have any kind of condition. I am just worried about falling . Patient reports that he has not been eating much due to fear of being poisoned however, he would not elaborate as to who he believes is poisoning him. He reports at home he has been urinating in milk cartons and defecating in trash bags and having his mother dispose of these items. Patient agreed to take 1 mg of Risperdal PO; however, expressed paranoia towards RN about being a different medication/dosage despite being shown packaging. T/W obtained information from patient's mother, Chio; Chio reports patient has not been using the toilet for the past two years due to being afraid that snakes will get him and voices telling him the same. Chio reports, pt is also afraid of walking d/t fear of hitting his head. She reports patient has never been on antipsychotics and has only taken anti-anxiety medications for 3 weeks which patient discontinued. She denies history of inpatient psychiatric hospitalizations. She reports having guardianship due to patient being unable to care for self. 03/29: Observing pacing unit hallway. Keeping to self. Covering self with blanket. Per nursing, pt slept in chair in milieu for 5 hours last night. Refused medications last night and this morning. Pt reports he does not want to sleep in a bed d/t feeling more vulnerable when laying down . Patient reports he does not want to go into the bathroom because he is paranoid that something might happen in there or someone might be waiting for me in there . Pt's 3 day up 03/30/24; he is requesting to be discharged home. 03/30: Observed standing at nurses station throughout shift; not taking redirection from staff to please step away for pt confidentiality. Argumentative. 3 day up today; filed on; pt notified. Pt stated, you can't keep me here. I'm going to jose you and make your head spin 3 times! Your documents are not real! Refused Zyprexa. Per nursing, pt urinated in carton in unit hallway;continues to refuse utilizing bathroom. Per nursing, pt did not eat anything today. 03/31: Pacing in front of nurses station. disheveled, malodorous; encouraged to shower, however pt declined despite being offered shower chair and staff member to wait outside shower room if assistance is needed. Per nursing, pt urinated in cup and sensory room floor last evening. Pt continues to report paranoia regarding using bathroom; pt stated, I'm worried someone will be in the bathroom waiting for me because of who I am . When asked why he believes someone would want to hurt him; pt stated, I can't discuss that . denies SI/HI/VH/AH. He reports not eating d/t concerns that he may be poisoned by someone ; observed drinking water from water bottle. Pt offered Zyprexa PO per court ordered treatment plan; per nursing, pt initially refused then agreed to take. 04/01: Patient continues to stand or pace in front of nurses station. disheveled, malodorous; per nursing, pt urinated in trash in mileu last evening. T/W spoke to patient regarding using restroom on unit; pt continues to report concern that someone can try to kill me because of who I am and who my family is ; when asked why someone would hurt him. Pt stated, because we are well known in [place] and they may hurt me because of it ; pt unable to specify who they are. denies AH/VH. Pt was offered for staff member to examine restroom and stand outside to assure no one is waiting for him; however pt continues to decline. Patient stated, I feel like you guys are playing a psychotic game with me or that they are doing this for their entertainment . 04/02: Patient continues to present similar to days prior. He continues to report paranoia regarding using restroom, shower and eating. Pt stated, I urinated in the trash early in the morning ; he continues to state he will consider using restroom. Pt reports taking bites of breakfast this morning. denies any side effects from Zyprexa other than feeling tired; pt stated, I am feeling a bit calmer . Per nursing, pt slept in chair in [facility] for 7 hours last night. Will continue to build rapport. 04/03: Patient continues to report paranoia regarding using restroom, shower and eating. Pt was offered single room d/t continuous urinating in [facility]; pt declined. Pt stated, I don't think a single room would help. I'm still having the same thoughts . Pt reports he has increased his fluid intake with water, juice and milk; however he continues to report only take a few bites of food. 04/04: Discussed medications increases with pt which he refuses at this time. Focused on discharge, and where his belongings are being stored at this time. 04/05: Patient declined to meet with T/W in unit office; pt stated, I don't feel comfortable going into the office because I think someone would hurt me ; pt reassured no one would hurt him, however, he continued to decline. Met with pt in unit hallway. Patient reports he did not urinate yesterday; he was educated regarding medical complications that can occur with decreased intake of fluids and food. Pt stated, I know but it's not like I'm dying . Pt refused labs. Discussed various solutions of pt feeling safe to use restroom or shower. pt stated, I'm still worried someone is going to hurt me. I'm not sure who, but it's because I am along the lines of royalty and it's putting me in harms way if I use the bathroom, shower or eat . Pt reporting zyprexa is making him too tired ; plan to DC. start risperidal 1mg PO daily with plan to switch to PLAZA; discussed with pt. T/W spoke to patient's mother, Chio, who reports has not left the house in 2 years and has not bathed or used the restroom in a year. She expressed concern over his wellbeing of not drinking or eating. She plans on calling patient to encourage him increase fluid intake. 04/07: Pt continues similar to days prior. Pt reports he did not urinate yesterday. Refused labs again. Hearing was held today; Pt was commited. T/W informed pt of plan to increase risperidal. Pt to receive additional risperidal 1mg PO bedtime dose to night. Starting tomorrow, Increase: Risperidal 2mg PO bedtime. 04/08: Staying in common area, however, keeping to self. per nursing, pt urinated in multiple cups last evening in common area and declined to use restroom. Pt reports feeling frustrated about not being discharged ; T/W discussed plan with medications again. Pt requesting to be discharged home today; asking multiple staff. Pt continues to report paranoia regarding using toilet, shower, eating/drinking. Encouraged to allow labs. 04/10: No changes. Encourage ongoing med adherence especially for Risperdal. Also encourage elevating legs as per hospitalist evaluation on 04/06/2024. Ordering an extra large compression stockings. 04/11: Met with pt in unit office. Continues to stay in common areas. paranoid. Pt discussed paranoia regarding eating; pt stated, how do you know someone isn't trying to poison me? People in this hospital. Per nursing, ate 10% of one meal yesterday and 25% of one meal today, has not eaten anything otherwise. Patient continues to refuse labs; shower (pt reports he has not bathed himself since admission and refusing to change clothes). Declining to use bathroom. perseverating on discharge to go back home where I can continue doing these things and be more comfortable . Continues similar to days prior; ? possible cheeking, will switch to risperidal liquid. Increase dose to Risperidal 3mg PO bedtime. Wound consult ordered for bilateral legs 04/12: Met with pt in unit office. Continues to stay in common areas; declining to go into assigned room for any reason. He continues paranoid, anxious, fearful. Pt argumentative and requesting discharge since he has been able to meet with T/W in the unit office for the past 2 days. Discussed that pt does not allow for the door to be closed, continues with paranoia stating my safety is a concern if the door is closed . Declining bathroom and shower. Discussed change of medication to liquid d/t possible cheeking. 04/13: Pt continues paranoid, anxious, fearful. T/W and hospital social worker, Sabi, encouraged pt to walk into his room; lights were turned on to show no one was in the room and it was safe; however, pt continues to make paranoid statements of someone waiting to hurt him. Pt reports he did not urinate yesterday; discussed the importance of drinking fluids and eating meals. Per nursing, pt ate 5% of breakfast yesterday and declined lunch and dinner. Continue current tx plan. 04/14: Pt continues similar to days prior. Refusing to cross threshold into any room other than side office. Continues concerned that someone may hurt him if he goes into a room even if staff are with him. Per nursing, pt has not eaten or drank fluids today. He did urinate in trash can in the mileu and continues to refuse using restroom; despite having access to multiple bathrooms. Continue current tx plan. 04/15: T/W and RN attempting to reassure patient of his safety to be able to cross threshold into his room. Continues to believe someone may be hiding in the room to hurt him. Argumentative, attempting to change topic when asked questions about challenging his anxiety and paranoia. Per nursing, pt continues to have poor intake. Pt reports he did not urinate yesterday 04/17: No changes 04/18: Met with Dr. Harriett shin. Pt continues to decline to go into bedroom or restroom; was willing to meet in side office with door open. He continues to discuss his anxiety and paranoia regarding being attacked by someone or snakes . Pt states he does not believe to have a mental illness ; requesting to be discharged home. Pt re-educated on goal of treatment. 04/19: Pt continues similar to days prior. Patient was given single room however pt continues to decline to enter room despite not having a room mate. He reports not urinating or having a bowel movement yesterday or today. Risperidal increased 4mg PO bedtime; pt aware. Labs ordered for tomorrow for monitoring of medical status while being treated with antipsychotics medications; informed consent obtained from guardian and patient is aware that informed consent was obtained. 04/20: pt continues to decline to enter his single room. Chair was placed between hallway and bedroom threshold; pt stated, I'm not going in there because I'm worried I might if I sit down . Continues with paranoid delusions. denies any side effects from increase in risperidal. encouraged to take Ativan to help with anxiety. Declined to go into his room to receive leg treatment. Declined to use restroom. 04/21: Continues with paranoid delusions; pt stated, I won't go in there because someone wants to kill me. I don't know who exactly. I know this from the narrative I hear and the symbolism I see on TV and commercial trucks . Declined to go into his room to receive leg treatment. Declined to use restroom. Eating/drinking minimally. Spoke with patient's mother and guardian, Chio, via phone. Reviewed current treatment plan and labs. 04/22: Patient continues similar to days prior. Continues with paranoid delusions; Declined to go into his room to receive leg treatment. Declined to use restroom. Eating/drinking minimally. Patient encouraged to challenge anxiety. 04/23 continue tx. 04/24 continue tx. increase risperidone to 6mg po qhs. 04/25: Continues paranoid and delusional. Refusing to go into room; pt stated, If I go in there I can be hurt with or without knowing ; when asked to elaborate, pt stated, they might hurt me, without me knowing I was hurt . Declining to use bathroom; observed to have distended abdomen, KUB ordered, pt was willing to have imaging done; awaiting results. Pt was willing to go into treatment room to use bath wipes and clean himself with RN present. Ordered Lactulose to assist with constipation; pt states he will consider taking this. 04/26: Continues paranoid and delusional. Refusing to go into room, bathroom or use commode in room; urinated in unit hallway. Refused Lactulose this morning despite encouragement. Continue current tx plan. 04/27: Continue current regimen and plans 04/28/24 Cont risp monitor response cont behavioral plan for helping re ability to lie down to enter a room encourage inc liquids latulose enema if needed 04/29: Keeping to self. urinated in trash bin in unit office. continues to refuse to go into bedroom or bathroom. offered commode and staff bathroom in unit hallway; however continues to decline. paranoid, delusional. Refusing lactulose despite education and no BM. 04/30: Continue current management and treatment plan. 05/01: Continue current management and treatment plan. 05/02: Keeping to self. Continues to refuse to enter bed room. He continues to report paranoia of someone trying to kill me if I go into the room ; pt encouraged to take one step over threshold, however, declined to do so; discussed increase in risperdal. Risperidal increased to 8mg PO bedtime. Patient reports having a bowel movement over the weekend but states he had the commode moved to door threshold so that his legs were outside the room. Patient reports he feels my paranoia is less but is unable to give examples of what has changed. Patient reports cold symptoms; allowed for covid/flu/rsv swab, which are negative; declined medication for cold symptoms. 05/03: Continues similar to days prior. paranoid. delusional. reviewed treatment plan with patient. continues to not use restroom, or enter room. continue current tx plan. 05/04/24- ongoing bizarre behavior and refusal to do ADLs independently 05/05: Pt states he feels something from med focused on discharge refusing to engage push againt behaviors that are self destructive 05/06: Lingering around nurses station today. Continues to refuse to enter bedroom or bathroom. Pt reports worry he may be killed if entering room; states he saw messages through the TV on [place], but would not go into detail. Discussed changing medication to Haldol d/t Risperidal being ineffective in paranoid delusions. Decrease Risperidal to 4mg PO bedtime. Start: Haldol 5mg PO bedtime Ativan 0.5mg PO bedtime T/W and Dr. Lorenzana spoke to patients mother, Chio, discussed medications and treatment plan. Chio is aware of medication changes. 05/09: Continues to linger around nurses station today. Continues paranoid and delusional. Argumentative today. Refusing to elevate legs on chair despite swelling; pt stated, I don't want to elevate my legs because I don't want to . Per nursing, last BM was 05/06/24. Pt continues to decline to go into room or bathroom even though he understands this will allow him to challenge his anxiety/paranoid withl the hopes of being discharges home. Patient stated, I'm not going to play with fate by going into the bathroom. All of you providers are compromising my safety . pt denies side effects from medication changes. Risperidal decreased to 2mg PO bedtime. Haldol increased to 10mg PO bedtime; pt aware. Encouraged to take Ativan to help with increased anxiety. 05/10: Patient observed lingering around nurses station; was asked by nursing to move multiple times for patient confidentiality. He continues anxious, paranoid and grandiose; patient stated, I told you I am a targeted person. I am a [place]. I do not understand why you would put me in dangers way and want me to use the bathroom . Patient continues to refuse to elevate legs; when asked why; patient stated, I want to see what happens ; patient educated regarding importance of elevating legs to decrease swelling. He was seen by hospitalist; please see note. Continue current treatment plan. 05/11: Patient continues similar to yesterday; anxious, paranoid, delusional, grandiose. Refusing leg care, elevate legs, lasix, teds; despite education from T/W and nursing. Per RN, pt had bowel movement but would not sit on commode, instead he removed bucket from commode and placed it on the floor in the bedroom door threshold and defecated while slightly bending at the knees. When done, pt went to pull up pants but was suggested to wipe self from RN and agreed to do so but would not wash hands afterwards. When T/W asked patient why he would not sit on commode; pt stated, you know my situation . DC risperidal. Increase Haldol to 15mg PO bedtime;pt aware. 05/12:anxious, paranoid, delusional, grandiose. Refusing leg care, elevate legs, lasix, teds; continued to be educated of importance. Pt stated, I'm not elevating my legs because they are not umcomfortable right now and I won't take the Lasix because I'm worried about losing too much water in my body. I won't take it . Continues to linger around nurses station; was asked by nursing to move away d/t pt confidentiality but would only take a step away for a short period before returning. T/W spoke to patient's mother, Chio, regarding treatment plan. Patient educated on: diagnosis, medication risk/benefits and therapeutic strategies Guardian/Caregiver educated on: medication risk/benefits and therapeutic strategies Reason for continued inpatient stay Substantial Risk for: med/psych decompensation Time Spent With Patient Time: Total time managing care of this patient today _30___ minutes.
[2024-05-12 20:00] VITALS: BP 99/61; PULSE 83; RESP 16; TEMP 36.4; O2SAT 100
[2024-05-12] MEDS: Haloperidol Lactate Oral Conc 10 MG/5 ML ORAL.CONC 15 MG PO (22:26)
[2024-05-13 07:10] VITALS: BP 111/60; PULSE 74; RESP 14; TEMP 36.5; O2SAT 100
--- NOTE | 2024-05-13 09:17 | HO.PSYCHPN ---
Subjective Subjective Date of Service: 05/13/24 Reason For Visit: Schizophrenia Subjective Notes: Section 8 Interim History: Patient is calmer today. Not argumentative. Patient reports he is considering taking a benzodiazapine to help with his anxiety. Continues to refuse leg care, elevate legs, lasix, teds; continued to be educated of importance. Medication Compliance: Intermittent Side effects from medications: No Attending Groups: No Review of Systems Constitutional: Reports as per HPI Eyes: Reports as per HPI Reports as per HPI Cardiovascular: Reports as per HPI Respiratory: Reports as per HPI Gastrointestinal: Reports as per HPI Genitourinary: Reports as per HPI Musculoskeletal: Reports as per HPI Skin/Breast: Reports as per HPI Reports as per HPI Psychiatric: Reports as per HPI Endocrine: Reports as per HPI Hematologic/Lymphatic: Reports as per HPI Allergic/Immunologic: Reports as per HPI Mental Status Exam Mental Status Exam Narrative: Pt is alert and oriented; behavior is calm; dressed in hospital attire, malodorous, disheveled; mood is described as alright ; eye contact appropriate; Speech is normal rate, volume and not pressured; focused on discharge; paranoid, delusional, grandiose. denies SI/HI. Insight and judgment are poor. Diagnostics Vital Signs (24Hr): Vital Signs - 24 hr 05/12/24 20:00 05/13/24 07:10 Temperature 97.6 F 97.7 F Pulse Rate 83 74 Respiratory Rate 16 14 Blood Pressure 99/61 111/60 Pulse Oximetry 100 100 Oxygen Delivery Method Room Air Room Air BMI result Body Mass Index 28.5 Labs 04/20/24 08:23 04/20/24 08:23 Imaging Radiology Impressions: ITS Impressions KUB X-Ray 04/25/24 14:00 IMPRESSION: Large stool burden overall. Electronically signed by: Corin Escoto DO 04/25/2024 07:31 PM EST Medications Medications Current Medications Acetaminophen (Acetaminophen 325 Mg Tablet) 650 mg PO Q6H PRN PRN Reason: Headache/Pain Mild Scale (1-3) Al Hydroxide/Mg Hydroxide (Magnesium Hydrox/Alum Hydrox 30 Ml Oral.Susp) 30 ml PO Q6H PRN PRN Reason: Heartburn/Nausea Benztropine Mesylate (Benztropine Mesylate 1 Mg Tablet) 1 mg PO DAILY PRN PRN Reason: Extrapyramidal Effects Betamethasone Dipropion Augmented (Betamethasone Dip Aug 0.05% Cr 15 Gm Tube) 1 appl TOPICAL BID LENI; Protocol Last Admin: 05/12/24 21:20 Dose: Not Given Furosemide (Furosemide 20 Mg Tablet) 20 mg PO DAILY LENI; Protocol Last Admin: 05/12/24 09:08 Dose: Not Given Haloperidol Lactate (Haloperidol Lactate 5 Mg/Ml Vial) 5 mg IM DAILY PRN PRN Reason: Psychosis Haloperidol Lactate (Haloperidol Lactate Oral Conc 10 Mg/5 Ml Oral.Conc) 15 mg PO BEDTIME LENI Last Admin: 05/12/24 22:26 Dose: 15 mg Hydroxyzine HCl (Hydroxyzine Hcl 25 Mg Tablet) 25 mg PO Q6H PRN PRN Reason: Anxiety Lactic Acid (Ammonium Lactate 12 % Cream 140 Gm Tube) 1 appl TOPICAL BID PRN; Protocol PRN Reason: Dry, scaly skin Last Admin: 04/18/24 20:53 Dose: 1 appl Lactic Acid (Ammonium Lactate 12 % Lotion 226 Gm Bottle) 1 appl TOPICAL DAILY LENI; Protocol Last Admin: 05/12/24 09:08 Dose: Not Given Lactulose (Lactulose 20 Gm/30 Ml Solution) 40 gm PO BID LENI Last Admin: 05/12/24 21:20 Dose: Not Given Lorazepam (Lorazepam 0.5 Mg Tablet) 0.5 mg PO BEDTIME LENI Last Admin: 05/12/24 21:20 Dose: Not Given Magnesium Hydroxide (Milk Of Magnesia 30 Ml Oral.Susp) 30 ml PO DAILY PRN PRN Reason: Constipation Psyllium Hydrophilic Mucilloid (Psyllium Seed 3.7 Gm Packet) 3.7 gm PO DAILY LENI Last Admin: 05/12/24 09:09 Dose: Not Given Trazodone HCl (Trazodone Hcl 50 Mg Tablet) 50 mg PO BEDTIME MRX1 PRN PRN Reason: Insomnia Allergies Allergies Allergy/AdvReac Type Severity Reaction Status Date / Time Unable to Assess Allergy Verified 03/25/24 21:15 Assessment & Plan Assessment & Plan (1) Schizophrenia: Status: Acute Code(s): F20.9 - Schizophrenia, unspecified (2) Lower extremity edema: Status: Acute Code(s): R60.0 - Localized edema Plan 03/26: risperidone 1/2. collateral from mother. clarify legal circumstance/rolando's order. 03/27: refusing meds, not leaving his chair. urinating in cup beneath blanket. requesting immediate discharge. continue to offer medication. clarify legal circumstance and ability to involuntarily administer medication. diamond warning provided. 03/28: Sitting in chair in milieu. Per nursing, patient urinating in cups under blankets. Patient was notified that he must go to his room to use the toilet and can not urinate in common areas. Patient was able to walk down unit hallway with no assistance. Patient is requesting to have a wheelchair d/t being terrified of falling . Patient stated, I do not have any kind of condition. I am just worried about falling . Patient reports that he has not been eating much due to fear of being poisoned however, he would not elaborate as to who he believes is poisoning him. He reports at home he has been urinating in milk cartons and defecating in trash bags and having his mother dispose of these items. Patient agreed to take 1 mg of Risperdal PO; however, expressed paranoia towards RN about being a different medication/dosage despite being shown packaging. T/W obtained information from patient's mother, Chio; Chio reports patient has not been using the toilet for the past two years due to being afraid that snakes will get him and voices telling him the same. Chio reports, pt is also afraid of walking d/t fear of hitting his head. She reports patient has never been on antipsychotics and has only taken anti-anxiety medications for 3 weeks which patient discontinued. She denies history of inpatient psychiatric hospitalizations. She reports having guardianship due to patient being unable to care for self. 03/29: Observing pacing unit hallway. Keeping to self. Covering self with blanket. Per nursing, pt slept in chair in milieu for 5 hours last night. Refused medications last night and this morning. Pt reports he does not want to sleep in a bed d/t feeling more vulnerable when laying down . Patient reports he does not want to go into the bathroom because he is paranoid that something might happen in there or someone might be waiting for me in there . Pt's 3 day up 03/30/24; he is requesting to be discharged home. 03/30: Observed standing at nurses station throughout shift; not taking redirection from staff to please step away for pt confidentiality. Argumentative. 3 day up today; filed on; pt notified. Pt stated, you can't keep me here. I'm going to jose you and make your head spin 3 times! Your documents are not real! Refused Zyprexa. Per nursing, pt urinated in carton in unit hallway;continues to refuse utilizing bathroom. Per nursing, pt did not eat anything today. 03/31: Pacing in front of nurses station. disheveled, malodorous; encouraged to shower, however pt declined despite being offered shower chair and staff member to wait outside shower room if assistance is needed. Per nursing, pt urinated in cup and sensory room floor last evening. Pt continues to report paranoia regarding using bathroom; pt stated, I'm worried someone will be in the bathroom waiting for me because of who I am . When asked why he believes someone would want to hurt him; pt stated, I can't discuss that . denies SI/HI/VH/AH. He reports not eating d/t concerns that he may be poisoned by someone ; observed drinking water from water bottle. Pt offered Zyprexa PO per court ordered treatment plan; per nursing, pt initially refused then agreed to take. 04/01: Patient continues to stand or pace in front of nurses station. disheveled, malodorous; per nursing, pt urinated in trash in mileu last evening. T/W spoke to patient regarding using restroom on unit; pt continues to report concern that someone can try to kill me because of who I am and who my family is ; when asked why someone would hurt him. Pt stated, because we are well known in [place] and they may hurt me because of it ; pt unable to specify who they are. denies AH/VH. Pt was offered for staff member to examine restroom and stand outside to assure no one is waiting for him; however pt continues to decline. Patient stated, I feel like you guys are playing a psychotic game with me or that they are doing this for their entertainment . 04/02: Patient continues to present similar to days prior. He continues to report paranoia regarding using restroom, shower and eating. Pt stated, I urinated in the trash early in the morning ; he continues to state he will consider using restroom. Pt reports taking bites of breakfast this morning. denies any side effects from Zyprexa other than feeling tired; pt stated, I am feeling a bit calmer . Per nursing, pt slept in chair in [facility] for 7 hours last night. Will continue to build rapport. 04/03: Patient continues to report paranoia regarding using restroom, shower and eating. Pt was offered single room d/t continuous urinating in [facility]; pt declined. Pt stated, I don't think a single room would help. I'm still having the same thoughts . Pt reports he has increased his fluid intake with water, juice and milk; however he continues to report only take a few bites of food. 04/04: Discussed medications increases with pt which he refuses at this time. Focused on discharge, and where his belongings are being stored at this time. 04/05: Patient declined to meet with T/W in unit office; pt stated, I don't feel comfortable going into the office because I think someone would hurt me ; pt reassured no one would hurt him, however, he continued to decline. Met with pt in unit hallway. Patient reports he did not urinate yesterday; he was educated regarding medical complications that can occur with decreased intake of fluids and food. Pt stated, I know but it's not like I'm dying . Pt refused labs. Discussed various solutions of pt feeling safe to use restroom or shower. pt stated, I'm still worried someone is going to hurt me. I'm not sure who, but it's because I am along the lines of royalty and it's putting me in harms way if I use the bathroom, shower or eat . Pt reporting zyprexa is making him too tired ; plan to DC. start risperidal 1mg PO daily with plan to switch to PLAZA; discussed with pt. T/W spoke to patient's mother, Chio, who reports has not left the house in 2 years and has not bathed or used the restroom in a year. She expressed concern over his wellbeing of not drinking or eating. She plans on calling patient to encourage him increase fluid intake. 04/07: Pt continues similar to days prior. Pt reports he did not urinate yesterday. Refused labs again. Hearing was held today; Pt was commited. T/W informed pt of plan to increase risperidal. Pt to receive additional risperidal 1mg PO bedtime dose to night. Starting tomorrow, Increase: Risperidal 2mg PO bedtime. 04/08: Staying in common area, however, keeping to self. per nursing, pt urinated in multiple cups last evening in common area and declined to use restroom. Pt reports feeling frustrated about not being discharged ; T/W discussed plan with medications again. Pt requesting to be discharged home today; asking multiple staff. Pt continues to report paranoia regarding using toilet, shower, eating/drinking. Encouraged to allow labs. 04/10: No changes. Encourage ongoing med adherence especially for Risperdal. Also encourage elevating legs as per hospitalist evaluation on 04/06/2024. Ordering an extra large compression stockings. 04/11: Met with pt in unit office. Continues to stay in common areas. paranoid. Pt discussed paranoia regarding eating; pt stated, how do you know someone isn't trying to poison me? People in this hospital. Per nursing, ate 10% of one meal yesterday and 25% of one meal today, has not eaten anything otherwise. Patient continues to refuse labs; shower (pt reports he has not bathed himself since admission and refusing to change clothes). Declining to use bathroom. perseverating on discharge to go back home where I can continue doing these things and be more comfortable . Continues similar to days prior; ? possible cheeking, will switch to risperidal liquid. Increase dose to Risperidal 3mg PO bedtime. Wound consult ordered for bilateral legs 04/12: Met with pt in unit office. Continues to stay in common areas; declining to go into assigned room for any reason. He continues paranoid, anxious, fearful. Pt argumentative and requesting discharge since he has been able to meet with T/W in the unit office for the past 2 days. Discussed that pt does not allow for the door to be closed, continues with paranoia stating my safety is a concern if the door is closed . Declining bathroom and shower. Discussed change of medication to liquid d/t possible cheeking. 04/13: Pt continues paranoid, anxious, fearful. T/W and protective services social worker, Sabi, encouraged pt to walk into his room; lights were turned on to show no one was in the room and it was safe; however, pt continues to make paranoid statements of someone waiting to hurt him. Pt reports he did not urinate yesterday; discussed the importance of drinking fluids and eating meals. Per nursing, pt ate 5% of breakfast yesterday and declined lunch and dinner. Continue current tx plan. 04/14: Pt continues similar to days prior. Refusing to cross threshold into any room other than side office. Continues concerned that someone may hurt him if he goes into a room even if staff are with him. Per nursing, pt has not eaten or drank fluids today. He did urinate in trash can in the mileu and continues to refuse using restroom; despite having access to multiple bathrooms. Continue current tx plan. 04/15: T/W and RN attempting to reassure patient of his safety to be able to cross threshold into his room. Continues to believe someone may be hiding in the room to hurt him. Argumentative, attempting to change topic when asked questions about challenging his anxiety and paranoia. Per nursing, pt continues to have poor intake. Pt reports he did not urinate yesterday 04/17: No changes 04/18: Met with Dr. Lorenzana present. Pt continues to decline to go into bedroom or restroom; was willing to meet in side office with door open. He continues to discuss his anxiety and paranoia regarding being attacked by someone or snakes . Pt states he does not believe to have a mental illness ; requesting to be discharged home. Pt re-educated on goal of treatment. 04/19: Pt continues similar to days prior. Patient was given single room however pt continues to decline to enter room despite not having a room mate. He reports not urinating or having a bowel movement yesterday or today. Risperidal increased 4mg PO bedtime; pt aware. Labs ordered for tomorrow for monitoring of medical status while being treated with antipsychotics medications; informed consent obtained from guardian and patient is aware that informed consent was obtained. 04/20: pt continues to decline to enter his single room. Chair was placed between hallway and bedroom threshold; pt stated, I'm not going in there because I'm worried I might if I sit down . Continues with paranoid delusions. denies any side effects from increase in risperidal. encouraged to take Ativan to help with anxiety. Declined to go into his room to receive leg treatment. Declined to use restroom. 04/21: Continues with paranoid delusions; pt stated, I won't go in there because someone wants to kill me. I don't know who exactly. I know this from the narrative I hear and the symbolism I see on TV and commercial trucks . Declined to go into his room to receive leg treatment. Declined to use restroom. Eating/drinking minimally. Spoke with patient's mother and guardian, Chio, via phone. Reviewed current treatment plan and labs. 04/22: Patient continues similar to days prior. Continues with paranoid delusions; Declined to go into his room to receive leg treatment. Declined to use restroom. Eating/drinking minimally. Patient encouraged to challenge anxiety. 04/23 continue tx. 04/24 continue tx. increase risperidone to 6mg po qhs. 04/25: Continues paranoid and delusional. Refusing to go into room; pt stated, If I go in there I can be hurt with or without knowing ; when asked to elaborate, pt stated, they might hurt me, without me knowing I was hurt . Declining to use bathroom; observed to have distended abdomen, KUB ordered, pt was willing to have imaging done; awaiting results. Pt was willing to go into treatment room to use bath wipes and clean himself with RN present. Ordered Lactulose to assist with constipation; pt states he will consider taking this. 04/26: Continues paranoid and delusional. Refusing to go into room, bathroom or use commode in room; urinated in unit hallway. Refused Lactulose this morning despite encouragement. Continue current tx plan. 04/27: Continue current regimen and plans 04/28/24 Cont risp monitor response cont behavioral plan for helping re ability to lie down to enter a room encourage inc liquids latulose enema if needed 04/29: Keeping to self. urinated in trash bin in unit office. continues to refuse to go into bedroom or bathroom. offered commode and staff bathroom in unit hallway; however continues to decline. paranoid, delusional. Refusing lactulose despite education and no BM. 04/30: Continue current management and treatment plan. 05/01: Continue current management and treatment plan. 05/02: Keeping to self. Continues to refuse to enter bed room. He continues to report paranoia of someone trying to kill me if I go into the room ; pt encouraged to take one step over threshold, however, declined to do so; discussed increase in risperdal. Risperidal increased to 8mg PO bedtime. Patient reports having a bowel movement over the weekend but states he had the commode moved to door threshold so that his legs were outside the room. Patient reports he feels my paranoia is less but is unable to give examples of what has changed. Patient reports cold symptoms; allowed for covid/flu/rsv swab, which are negative; declined medication for cold symptoms. 05/03: Continues similar to days prior. paranoid. delusional. reviewed treatment plan with patient. continues to not use restroom, or enter room. continue current tx plan. 05/04/24- ongoing bizarre behavior and refusal to do ADLs independently 05/05: Pt states he feels something from med focused on discharge refusing to engage push againt behaviors that are self destructive 05/06: Lingering around nurses station today. Continues to refuse to enter bedroom or bathroom. Pt reports worry he may be killed if entering room; states he saw messages through the TV on [place], but would not go into detail. Discussed changing medication to Haldol d/t Risperidal being ineffective in paranoid delusions. Decrease Risperidal to 4mg PO bedtime. Start: Haldol 5mg PO bedtime Ativan 0.5mg PO bedtime T/W and Dr. Lorenzana spoke to patients mother, Chio, discussed medications and treatment plan. Chio is aware of medication changes. 05/09: Continues to linger around nurses station today. Continues paranoid and delusional. Argumentative today. Refusing to elevate legs on chair despite swelling; pt stated, I don't want to elevate my legs because I don't want to . Per nursing, last BM was 05/06/24. Pt continues to decline to go into room or bathroom even though he understands this will allow him to challenge his anxiety/paranoid withl the hopes of being discharges home. Patient stated, I'm not going to play with fate by going into the bathroom. All of you providers are compromising my safety . pt denies side effects from medication changes. Risperidal decreased to 2mg PO bedtime. Haldol increased to 10mg PO bedtime; pt aware. Encouraged to take Ativan to help with increased anxiety. 05/10: Patient observed lingering around nurses station; was asked by nursing to move multiple times for patient confidentiality. He continues anxious, paranoid and grandiose; patient stated, I told you I am a targeted person. I am a [place]. I do not understand why you would put me in dangers way and want me to use the bathroom . Patient continues to refuse to elevate legs; when asked why; patient stated, I want to see what happens ; patient educated regarding importance of elevating legs to decrease swelling. He was seen by hospitalist; please see note. Continue current treatment plan. 05/11: Patient continues similar to yesterday; anxious, paranoid, delusional, grandiose. Refusing leg care, elevate legs, lasix, teds; despite education from T/W and nursing. Per RN, pt had bowel movement but would not sit on commode, instead he removed bucket from commode and placed it on the floor in the bedroom door threshold and defecated while slightly bending at the knees. When done, pt went to pull up pants but was suggested to wipe self from RN and agreed to do so but would not wash hands afterwards. When T/W asked patient why he would not sit on commode; pt stated, you know my situation . DC risperidal. Increase Haldol to 15mg PO bedtime;pt aware. 05/12:anxious, paranoid, delusional, grandiose. Refusing leg care, elevate legs, lasix, teds; continued to be educated of importance. Pt stated, I'm not elevating my legs because they are not umcomfortable right now and I won't take the Lasix because I'm worried about losing too much water in my body. I won't take it . Continues to linger around nurses station; was asked by nursing to move away d/t pt confidentiality but would only take a step away for a short period before returning. T/W spoke to patient's mother, Chio, regarding treatment plan. 05/13: Patient is calmer today. Not argumentative. Patient reports he is considering taking a benzodiazapine to help with his anxiety. Continues to refuse leg care, elevate legs, lasix, teds; continued to be educated of importance. Continue current tx plan. Patient educated on: diagnosis, medication risk/benefits, therapeutic strategies and medical condition Reason for continued inpatient stay Substantial Risk for: med/psych decompensation Time Spent With Patient Time: Total time managing care of this patient today _20___ minutes.
[2024-05-13 20:00] VITALS: BP 118/78; PULSE 96; RESP 18; TEMP 36.8; O2SAT 99
[2024-05-13] MEDS: Haloperidol Lactate Oral Conc 10 MG/5 ML ORAL.CONC 15 MG PO (22:48)
--- NOTE | 2024-05-14 11:15 | HO.PSYCHPN ---
Subjective Subjective Date of Service: 05/14/24 Reason For Visit: Schizophrenia Interim History: Met with patient; discussed with team Patient remains with same presentation, standing in the milieu. Staff reports that patient is in the milieu day and night and does not go to his room. Rotary Saw Operator asked how he feels on the Haldol and patient says he is feeling cloudy and less clear minded. Discussed head stockings and patient said that he wanted to see how his legs did for a few days off of the test stockings but seem to understand the purpose for them and said he would put them back on eventually. Mental Status Exam Mental Status Exam Narrative: Pt is alert and oriented; behavior is calm; dressed in hospital attire, holding blanket over his shoulders; malodorous, disheveled; mood is described as not so good ; eye contact appropriate; Speech is normal rate, volume and not pressured; focused on discharge; paranoid, delusional, grandiose. denies SI/HI. Insight and judgment are poor. Diagnostics Vital Signs (24Hr): Vital Signs - 24 hr 05/13/24 20:00 Temperature 98.2 F Pulse Rate 96 Respiratory Rate 18 Blood Pressure 118/78 Pulse Oximetry 99 Oxygen Delivery Method Room Air BMI result Body Mass Index 28.5 Labs 04/20/24 08:23 04/20/24 08:23 Imaging Radiology Impressions: ITS Impressions KUB X-Ray 04/25/24 14:00 IMPRESSION: Large stool burden overall. Electronically signed by: Corin Escoto DO 04/25/2024 07:31 PM [facility] Medications Medications Current Medications Acetaminophen (Acetaminophen 325 Mg Tablet) 650 mg PO Q6H PRN PRN Reason: Headache/Pain Mild Scale (1-3) Al Hydroxide/Mg Hydroxide (Magnesium Hydrox/Alum Hydrox 30 Ml Oral.Susp) 30 ml PO Q6H PRN PRN Reason: Heartburn/Nausea Benztropine Mesylate (Benztropine Mesylate 1 Mg Tablet) 1 mg PO DAILY PRN PRN Reason: Extrapyramidal Effects Betamethasone Dipropion Augmented (Betamethasone Dip Aug 0.05% Cr 15 Gm Tube) 1 appl TOPICAL BID LENI; Protocol Last Admin: 05/14/24 08:56 Dose: Not Given Furosemide (Furosemide 20 Mg Tablet) 20 mg PO DAILY LENI; Protocol Last Admin: 05/14/24 08:56 Dose: Not Given Haloperidol Lactate (Haloperidol Lactate 5 Mg/Ml Vial) 5 mg IM DAILY PRN PRN Reason: Psychosis Haloperidol Lactate (Haloperidol Lactate Oral Conc 10 Mg/5 Ml Oral.Conc) 15 mg PO BEDTIME LENI Last Admin: 05/13/24 22:48 Dose: 15 mg Hydroxyzine HCl (Hydroxyzine Hcl 25 Mg Tablet) 25 mg PO Q6H PRN PRN Reason: Anxiety Lactic Acid (Ammonium Lactate 12 % Cream 140 Gm Tube) 1 appl TOPICAL BID PRN; Protocol PRN Reason: Dry, scaly skin Last Admin: 04/18/24 20:53 Dose: 1 appl Lactic Acid (Ammonium Lactate 12 % Lotion 226 Gm Bottle) 1 appl TOPICAL DAILY LENI; Protocol Last Admin: 05/14/24 08:56 Dose: Not Given Lactulose (Lactulose 20 Gm/30 Ml Solution) 40 gm PO BID LENI Last Admin: 05/14/24 08:56 Dose: Not Given Lorazepam (Lorazepam 0.5 Mg Tablet) 0.5 mg PO BEDTIME LENI Last Admin: 05/13/24 22:50 Dose: Not Given Magnesium Hydroxide (Milk Of Magnesia 30 Ml Oral.Susp) 30 ml PO DAILY PRN PRN Reason: Constipation Psyllium Hydrophilic Mucilloid (Psyllium Seed 3.7 Gm Packet) 3.7 gm PO DAILY LENI Last Admin: 05/14/24 08:56 Dose: Not Given Trazodone HCl (Trazodone Hcl 50 Mg Tablet) 50 mg PO BEDTIME MRX1 PRN PRN Reason: Insomnia Allergies Allergies Allergy/AdvReac Type Severity Reaction Status Date / Time Unable to Assess Allergy Verified 03/25/24 21:15 Assessment & Plan Assessment & Plan (1) Schizophrenia: Status: Acute Code(s): F20.9 - Schizophrenia, unspecified (2) Lower extremity edema: Status: Acute Code(s): R60.0 - Localized edema Plan 03/26: risperidone 1/2. collateral from mother. clarify legal circumstance/rolando's order. 03/27: refusing meds, not leaving his chair. urinating in cup beneath blanket. requesting immediate discharge. continue to offer medication. clarify legal circumstance and ability to involuntarily administer medication. diamond warning provided. 03/28: Sitting in chair in milieu. Per nursing, patient urinating in cups under blankets. Patient was notified that he must go to his room to use the toilet and can not urinate in common areas. Patient was able to walk down unit hallway with no assistance. Patient is requesting to have a wheelchair d/t being terrified of falling . Patient stated, I do not have any kind of condition. I am just worried about falling . Patient reports that he has not been eating much due to fear of being poisoned however, he would not elaborate as to who he believes is poisoning him. He reports at home he has been urinating in milk cartons and defecating in trash bags and having his mother dispose of these items. Patient agreed to take 1 mg of Risperdal PO; however, expressed paranoia towards RN about being a different medication/dosage despite being shown packaging. T/W obtained information from patient's mother, Chio; Chio reports patient has not been using the toilet for the past two years due to being afraid that snakes will get him and voices telling him the same. Chio reports, pt is also afraid of walking d/t fear of hitting his head. She reports patient has never been on antipsychotics and has only taken anti-anxiety medications for 3 weeks which patient discontinued. She denies history of inpatient psychiatric hospitalizations. She reports having guardianship due to patient being unable to care for self. 03/29: Observing pacing unit hallway. Keeping to self. Covering self with blanket. Per nursing, pt slept in chair in milieu for 5 hours last night. Refused medications last night and this morning. Pt reports he does not want to sleep in a bed d/t feeling more vulnerable when laying down . Patient reports he does not want to go into the bathroom because he is paranoid that something might happen in there or someone might be waiting for me in there . Pt's 3 day up 03/30/24; he is requesting to be discharged home. 03/30: Observed standing at nurses station throughout shift; not taking redirection from staff to please step away for pt confidentiality. Argumentative. 3 day up today; filed on; pt notified. Pt stated, you can't keep me here. I'm going to jose you and make your head spin 3 times! Your documents are not real! Refused Zyprexa. Per nursing, pt urinated in carton in unit hallway;continues to refuse utilizing bathroom. Per nursing, pt did not eat anything today. 03/31: Pacing in front of nurses station. disheveled, malodorous; encouraged to shower, however pt declined despite being offered shower chair and staff member to wait outside shower room if assistance is needed. Per nursing, pt urinated in cup and sensory room floor last evening. Pt continues to report paranoia regarding using bathroom; pt stated, I'm worried someone will be in the bathroom waiting for me because of who I am . When asked why he believes someone would want to hurt him; pt stated, I can't discuss that . denies SI/HI/VH/AH. He reports not eating d/t concerns that he may be poisoned by someone ; observed drinking water from water bottle. Pt offered Zyprexa PO per court ordered treatment plan; per nursing, pt initially refused then agreed to take. 04/01: Patient continues to stand or pace in front of nurses station. disheveled, malodorous; per nursing, pt urinated in trash in mileu last evening. T/W spoke to patient regarding using restroom on unit; pt continues to report concern that someone can try to kill me because of who I am and who my family is ; when asked why someone would hurt him. Pt stated, because we are well known in [place] and they may hurt me because of it ; pt unable to specify who they are. denies AH/VH. Pt was offered for staff member to examine restroom and stand outside to assure no one is waiting for him; however pt continues to decline. Patient stated, I feel like you guys are playing a psychotic game with me or that they are doing this for their entertainment . 04/02: Patient continues to present similar to days prior. He continues to report paranoia regarding using restroom, shower and eating. Pt stated, I urinated in the trash early in the morning ; he continues to state he will consider using restroom. Pt reports taking bites of breakfast this morning. denies any side effects from Zyprexa other than feeling tired; pt stated, I am feeling a bit calmer . Per nursing, pt slept in chair in mileu for 7 hours last night. Will continue to build rapport. 04/03: Patient continues to report paranoia regarding using restroom, shower and eating. Pt was offered single room d/t continuous urinating in [facility]; pt declined. Pt stated, I don't think a single room would help. I'm still having the same thoughts . Pt reports he has increased his fluid intake with water, juice and milk; however he continues to report only take a few bites of food. 04/04: Discussed medications increases with pt which he refuses at this time. Focused on discharge, and where his belongings are being stored at this time. 04/05: Patient declined to meet with T/W in unit office; pt stated, I don't feel comfortable going into the office because I think someone would hurt me ; pt reassured no one would hurt him, however, he continued to decline. Met with pt in unit hallway. Patient reports he did not urinate yesterday; he was educated regarding medical complications that can occur with decreased intake of fluids and food. Pt stated, I know but it's not like I'm dying . Pt refused labs. Discussed various solutions of pt feeling safe to use restroom or shower. pt stated, I'm still worried someone is going to hurt me. I'm not sure who, but it's because I am along the lines of royalty and it's putting me in harms way if I use the bathroom, shower or eat . Pt reporting zyprexa is making him too tired ; plan to DC. start risperidal 1mg PO daily with plan to switch to PLAZA; discussed with pt. T/W spoke to patient's mother, Chio, who reports has not left the house in 2 years and has not bathed or used the restroom in a year. She expressed concern over his wellbeing of not drinking or eating. She plans on calling patient to encourage him increase fluid intake. 04/07: Pt continues similar to days prior. Pt reports he did not urinate yesterday. Refused labs again. Hearing was held today; Pt was commited. T/W informed pt of plan to increase risperidal. Pt to receive additional risperidal 1mg PO bedtime dose to night. Starting tomorrow, Increase: Risperidal 2mg PO bedtime. 04/08: Staying in common area, however, keeping to self. per nursing, pt urinated in multiple cups last evening in common area and declined to use restroom. Pt reports feeling frustrated about not being discharged ; T/W discussed plan with medications again. Pt requesting to be discharged home today; asking multiple staff. Pt continues to report paranoia regarding using toilet, shower, eating/drinking. Encouraged to allow labs. 04/10: No changes. Encourage ongoing med adherence especially for Risperdal. Also encourage elevating legs as per hospitalist evaluation on 04/06/2024. Ordering an extra large compression stockings. 04/11: Met with pt in unit office. Continues to stay in common areas. paranoid. Pt discussed paranoia regarding eating; pt stated, how do you know someone isn't trying to poison me? People in this hospital. Per nursing, ate 10% of one meal yesterday and 25% of one meal today, has not eaten anything otherwise. Patient continues to refuse labs; shower (pt reports he has not bathed himself since admission and refusing to change clothes). Declining to use bathroom. perseverating on discharge to go back home where I can continue doing these things and be more comfortable . Continues similar to days prior; ? possible cheeking, will switch to risperidal liquid. Increase dose to Risperidal 3mg PO bedtime. Wound consult ordered for bilateral legs 04/12: Met with pt in unit office. Continues to stay in common areas; declining to go into assigned room for any reason. He continues paranoid, anxious, fearful. Pt argumentative and requesting discharge since he has been able to meet with T/W in the unit office for the past 2 days. Discussed that pt does not allow for the door to be closed, continues with paranoia stating my safety is a concern if the door is closed . Declining bathroom and shower. Discussed change of medication to liquid d/t possible cheeking. 04/13: Pt continues paranoid, anxious, fearful. T/W and social services manager, Sabi, encouraged pt to walk into his room; lights were turned on to show no one was in the room and it was safe; however, pt continues to make paranoid statements of someone waiting to hurt him. Pt reports he did not urinate yesterday; discussed the importance of drinking fluids and eating meals. Per nursing, pt ate 5% of breakfast yesterday and declined lunch and dinner. Continue current tx plan. 04/14: Pt continues similar to days prior. Refusing to cross threshold into any room other than side office. Continues concerned that someone may hurt him if he goes into a room even if staff are with him. Per nursing, pt has not eaten or drank fluids today. He did urinate in trash can in the mileu and continues to refuse using restroom; despite having access to multiple bathrooms. Continue current tx plan. 04/15: T/W and RN attempting to reassure patient of his safety to be able to cross threshold into his room. Continues to believe someone may be hiding in the room to hurt him. Argumentative, attempting to change topic when asked questions about challenging his anxiety and paranoia. Per nursing, pt continues to have poor intake. Pt reports he did not urinate yesterday 04/17: No changes 04/18: Met with Dr. Lorenzana present. Pt continues to decline to go into bedroom or restroom; was willing to meet in side office with door open. He continues to discuss his anxiety and paranoia regarding being attacked by someone or snakes . Pt states he does not believe to have a mental illness ; requesting to be discharged home. Pt re-educated on goal of treatment. 04/19: Pt continues similar to days prior. Patient was given single room however pt continues to decline to enter room despite not having a room mate. He reports not urinating or having a bowel movement yesterday or today. Risperidal increased 4mg PO bedtime; pt aware. Labs ordered for tomorrow for monitoring of medical status while being treated with antipsychotics medications; informed consent obtained from guardian and patient is aware that informed consent was obtained. 04/20: pt continues to decline to enter his single room. Chair was placed between hallway and bedroom threshold; pt stated, I'm not going in there because I'm worried I might if I sit down . Continues with paranoid delusions. denies any side effects from increase in risperidal. encouraged to take Ativan to help with anxiety. Declined to go into his room to receive leg treatment. Declined to use restroom. 04/21: Continues with paranoid delusions; pt stated, I won't go in there because someone wants to kill me. I don't know who exactly. I know this from the narrative I hear and the symbolism I see on TV and commercial trucks . Declined to go into his room to receive leg treatment. Declined to use restroom. Eating/drinking minimally. Spoke with patient's mother and guardian, Ciho, via phone. Reviewed current treatment plan and labs. 04/22: Patient continues similar to days prior. Continues with paranoid delusions; Declined to go into his room to receive leg treatment. Declined to use restroom. Eating/drinking minimally. Patient encouraged to challenge anxiety. 04/23 continue tx. 04/24 continue tx. increase risperidone to 6mg po qhs. 04/25: Continues paranoid and delusional. Refusing to go into room; pt stated, If I go in there I can be hurt with or without knowing ; when asked to elaborate, pt stated, they might hurt me, without me knowing I was hurt . Declining to use bathroom; observed to have distended abdomen, KUB ordered, pt was willing to have imaging done; awaiting results. Pt was willing to go into treatment room to use bath wipes and clean himself with RN present. Ordered Lactulose to assist with constipation; pt states he will consider taking this. 04/26: Continues paranoid and delusional. Refusing to go into room, bathroom or use commode in room; urinated in unit hallway. Refused Lactulose this morning despite encouragement. Continue current tx plan. 04/27: Continue current regimen and plans 04/28/24 Cont risp monitor response cont behavioral plan for helping re ability to lie down to enter a room encourage inc liquids latulose enema if needed 04/29: Keeping to self. urinated in trash bin in unit office. continues to refuse to go into bedroom or bathroom. offered commode and staff bathroom in unit hallway; however continues to decline. paranoid, delusional. Refusing lactulose despite education and no BM. 04/30: Continue current management and treatment plan. 05/01: Continue current management and treatment plan. 05/02: Keeping to self. Continues to refuse to enter bed room. He continues to report paranoia of someone trying to kill me if I go into the room ; pt encouraged to take one step over threshold, however, declined to do so; discussed increase in risperdal. Risperidal increased to 8mg PO bedtime. Patient reports having a bowel movement over the weekend but states he had the commode moved to door threshold so that his legs were outside the room. Patient reports he feels my paranoia is less but is unable to give examples of what has changed. Patient reports cold symptoms; allowed for covid/flu/rsv swab, which are negative; declined medication for cold symptoms. 05/03: Continues similar to days prior. paranoid. delusional. reviewed treatment plan with patient. continues to not use restroom, or enter room. continue current tx plan. 05/04/24- ongoing bizarre behavior and refusal to do ADLs independently 05/05: Pt states he feels something from med focused on discharge refusing to engage push againt behaviors that are self destructive 05/06: Lingering around nurses station today. Continues to refuse to enter bedroom or bathroom. Pt reports worry he may be killed if entering room; states he saw messages through the TV on , but would not go into detail. Discussed changing medication to Haldol d/t Risperidal being ineffective in paranoid delusions. Decrease Risperidal to 4mg PO bedtime. Start: Haldol 5mg PO bedtime Ativan 0.5mg PO bedtime T/W and Dr. Lorenzana spoke to patients mother, Chio, discussed medications and treatment plan. Chio is aware of medication changes. 05/09: Continues to linger around nurses station today. Continues paranoid and delusional. Argumentative today. Refusing to elevate legs on chair despite swelling; pt stated, I don't want to elevate my legs because I don't want to . Per nursing, last BM was 05/06/24. Pt continues to decline to go into room or bathroom even though he understands this will allow him to challenge his anxiety/paranoid withl the hopes of being discharges home. Patient stated, I'm not going to play with fate by going into the bathroom. All of you providers are compromising my safety . pt denies side effects from medication changes. Risperidal decreased to 2mg PO bedtime. Haldol increased to 10mg PO bedtime; pt aware. Encouraged to take Ativan to help with increased anxiety. 05/10: Patient observed lingering around nurses station; was asked by nursing to move multiple times for patient confidentiality. He continues anxious, paranoid and grandiose; patient stated, I told you I am a targeted person. I am a [place]. I do not understand why you would put me in dangers way and want me to use the bathroom . Patient continues to refuse to elevate legs; when asked why; patient stated, I want to see what happens ; patient educated regarding importance of elevating legs to decrease swelling. He was seen by hospitalist; please see note. Continue current treatment plan. 05/11: Patient continues similar to yesterday; anxious, paranoid, delusional, grandiose. Refusing leg care, elevate legs, lasix, teds; despite education from T/W and nursing. Per RN, pt had bowel movement but would not sit on commode, instead he removed bucket from commode and placed it on the floor in the bedroom door threshold and defecated while slightly bending at the knees. When done, pt went to pull up pants but was suggested to wipe self from RN and agreed to do so but would not wash hands afterwards. When T/W asked patient why he would not sit on commode; pt stated, you know my situation . DC risperidal. Increase Haldol to 15mg PO bedtime;pt aware. 05/12:anxious, paranoid, delusional, grandiose. Refusing leg care, elevate legs, lasix, teds; continued to be educated of importance. Pt stated, I'm not elevating my legs because they are not umcomfortable right now and I won't take the Lasix because I'm worried about losing too much water in my body. I won't take it . Continues to linger around nurses station; was asked by nursing to move away d/t pt confidentiality but would only take a step away for a short period before returning. T/W spoke to patient's mother, Chio, regarding treatment plan. 05/13: Patient is calmer today. Not argumentative. Patient reports he is considering taking a benzodiazapine to help with his anxiety. Continues to refuse leg care, elevate legs, lasix, teds; continued to be educated of importance. Continue current tx plan. 05/14 Patient remains with same presentation, standing in the milieu. Staff reports that patient is in the milieu day and night and does not go to his room. Rotary Saw Operator asked how he feels on the Haldol and patient says he is feeling cloudy and less clear minded. Discussed head stockings and patient said that he wanted to see how his legs did for a few days off of the test stockings but seem to understand the purpose for them and said he would put them back on eventually. Patient educated on: diagnosis, medication risk/benefits and medical condition Informed Consent: understands, does not understand and further education needed Reason for continued inpatient stay Substantial Risk for: inability to function Time Spent With Patient Time: Total time managing care of this patient today ____ minutes.
[2024-05-14 20:00] VITALS: BP 105/72; PULSE 84; RESP 16; TEMP 36.4; O2SAT 97
[2024-05-14] MEDS: Haloperidol Lactate Oral Conc 10 MG/5 ML ORAL.CONC 15 MG PO (22:15)
[2024-05-15 08:00] VITALS: BP 118/71; PULSE 74; RESP 18; TEMP 36.4; O2SAT 99
[2024-05-15 09:48] VITALS: BP 118/71
--- NOTE | 2024-05-15 16:35 | HO.PSYCHPN ---
Subjective Subjective Date of Service: 05/15/24 Reason For Visit: Schizophrenia Interim History: Met with patient; discussed with team Patient remains standing in the holguin only and will not going to his room. Earlier, patient has lunch tray had a peach container that was slightly opened and patient was convinced it was poisoned., ostensibly by kitchen staff.. At some point he received a fork with 1 of the prongs bent/missing which he found conclusive evidence that someone, kitchen staff is purposely doing this to bother him. Patient however was willing to engage with mortgage underwriter and reality testing and conceded that it is possible this was just a coincidence and that no one is trying to bother him however still thinks it is most likely that these things were intentional. Oak Tanner discussed medication and increasing Haldol. Patient said he does not think that would help as he feels Haldol is already making him think less clearly. Mental Status Exam Mental Status Exam Narrative: Pt is alert and oriented; behavior is calm; dressed in hospital attire, holding blanket over his shoulders; malodorous, disheveled; mood is described as anxious; affect mostly blunted; eye contact appropriate; Speech is normal rate, volume and not pressured; thought content with paranoid ideation; denies SI/HI. Insight and judgment are poor. Diagnostics Vital Signs (24Hr): Vital Signs - 24 hr 05/14/24 20:00 05/15/24 08:00 05/15/24 09:48 Temperature 97.6 F 97.6 F Pulse Rate 84 74 Respiratory Rate 16 18 Blood Pressure 105/72 118/71 118/71 Pulse Oximetry 97 99 Oxygen Delivery Method Room Air Room Air BMI result Body Mass Index 28.5 Labs 04/20/24 08:23 04/20/24 08:23 Imaging Radiology Impressions: ITS Impressions KUB X-Ray 04/25/24 14:00 IMPRESSION: Large stool burden overall. Electronically signed by: Corin Escoto DO 04/25/2024 07:31 PM ROSA MARIA Medications Medications Current Medications Acetaminophen (Acetaminophen 325 Mg Tablet) 650 mg PO Q6H PRN PRN Reason: Headache/Pain Mild Scale (1-3) Al Hydroxide/Mg Hydroxide (Magnesium Hydrox/Alum Hydrox 30 Ml Oral.Susp) 30 ml PO Q6H PRN PRN Reason: Heartburn/Nausea Benztropine Mesylate (Benztropine Mesylate 1 Mg Tablet) 1 mg PO DAILY PRN PRN Reason: Extrapyramidal Effects Betamethasone Dipropion Augmented (Betamethasone Dip Aug 0.05% Cr 15 Gm Tube) 1 appl TOPICAL BID LENI; Protocol Last Admin: 05/15/24 09:47 Dose: Not Given Furosemide (Furosemide 20 Mg Tablet) 20 mg PO DAILY LENI; Protocol Last Admin: 05/15/24 09:48 Dose: Not Given Haloperidol Lactate (Haloperidol Lactate 5 Mg/Ml Vial) 5 mg IM DAILY PRN PRN Reason: Psychosis Haloperidol Lactate (Haloperidol Lactate Oral Conc 10 Mg/5 Ml Oral.Conc) 15 mg PO BEDTIME LEIN Last Admin: 05/14/24 22:15 Dose: 15 mg Hydroxyzine HCl (Hydroxyzine Hcl 25 Mg Tablet) 25 mg PO Q6H PRN PRN Reason: Anxiety Lactic Acid (Ammonium Lactate 12 % Cream 140 Gm Tube) 1 appl TOPICAL BID PRN; Protocol PRN Reason: Dry, scaly skin Last Admin: 04/18/24 20:53 Dose: 1 appl Lactic Acid (Ammonium Lactate 12 % Lotion 226 Gm Bottle) 1 appl TOPICAL DAILY LENI; Protocol Last Admin: 05/15/24 09:47 Dose: Not Given Lactulose (Lactulose 20 Gm/30 Ml Solution) 40 gm PO BID LENI Last Admin: 05/15/24 09:48 Dose: Not Given Lorazepam (Lorazepam 0.5 Mg Tablet) 0.5 mg PO BEDTIME LENI Last Admin: 05/14/24 22:17 Dose: Not Given Magnesium Hydroxide (Milk Of Magnesia 30 Ml Oral.Susp) 30 ml PO DAILY PRN PRN Reason: Constipation Psyllium Hydrophilic Mucilloid (Psyllium Seed 3.7 Gm Packet) 3.7 gm PO DAILY LENI Last Admin: 05/15/24 09:48 Dose: Not Given Trazodone HCl (Trazodone Hcl 50 Mg Tablet) 50 mg PO BEDTIME MRX1 PRN PRN Reason: Insomnia Allergies Allergies Allergy/AdvReac Type Severity Reaction Status Date / Time Unable to Assess Allergy Verified 03/25/24 21:15 Assessment & Plan Assessment & Plan (1) Schizophrenia: Status: Acute Code(s): F20.9 - Schizophrenia, unspecified (2) Lower extremity edema: Status: Acute Code(s): R60.0 - Localized edema Plan 03/26: risperidone /. collateral from mother. clarify legal circumstance/rolando's order. 03/27: refusing meds, not leaving his chair. urinating in cup beneath blanket. requesting immediate discharge. continue to offer medication. clarify legal circumstance and ability to involuntarily administer medication. diamond warning provided. 03/28: Sitting in chair in milieu. Per nursing, patient urinating in cups under blankets. Patient was notified that he must go to his room to use the toilet and can not urinate in common areas. Patient was able to walk down unit hallway with no assistance. Patient is requesting to have a wheelchair d/t being terrified of falling . Patient stated, I do not have any kind of condition. I am just worried about falling . Patient reports that he has not been eating much due to fear of being poisoned however, he would not elaborate as to who he believes is poisoning him. He reports at home he has been urinating in milk cartons and defecating in trash bags and having his mother dispose of these items. Patient agreed to take 1 mg of Risperdal PO; however, expressed paranoia towards RN about being a different medication/dosage despite being shown packaging. T/W obtained information from patient's mother, Chio; Chio reports patient has not been using the toilet for the past two years due to being afraid that snakes will get him and voices telling him the same. Chio reports, pt is also afraid of walking d/t fear of hitting his head. She reports patient has never been on antipsychotics and has only taken anti-anxiety medications for 3 weeks which patient discontinued. She denies history of inpatient psychiatric hospitalizations. She reports having guardianship due to patient being unable to care for self. 03/29: Observing pacing unit hallway. Keeping to self. Covering self with blanket. Per nursing, pt slept in chair in milieu for 5 hours last night. Refused medications last night and this morning. Pt reports he does not want to sleep in a bed d/t feeling more vulnerable when laying down . Patient reports he does not want to go into the bathroom because he is paranoid that something might happen in there or someone might be waiting for me in there . Pt's 3 day up 03/30/24; he is requesting to be discharged home. 03/30: Observed standing at nurses station throughout shift; not taking redirection from staff to please step away for pt confidentiality. Argumentative. 3 day up today; filed on; pt notified. Pt stated, you can't keep me here. I'm going to jose you and make your head spin 3 times! Your documents are not real! Refused Zyprexa. Per nursing, pt urinated in carton in unit hallway;continues to refuse utilizing bathroom. Per nursing, pt did not eat anything today. 03/31: Pacing in front of nurses station. disheveled, malodorous; encouraged to shower, however pt declined despite being offered shower chair and staff member to wait outside shower room if assistance is needed. Per nursing, pt urinated in cup and sensory room floor last evening. Pt continues to report paranoia regarding using bathroom; pt stated, I'm worried someone will be in the bathroom waiting for me because of who I am . When asked why he believes someone would want to hurt him; pt stated, I can't discuss that . denies SI/HI/VH/AH. He reports not eating d/t concerns that he may be poisoned by someone ; observed drinking water from water bottle. Pt offered Zyprexa PO per court ordered treatment plan; per nursing, pt initially refused then agreed to take. 04/01: Patient continues to stand or pace in front of nurses station. disheveled, malodorous; per nursing, pt urinated in trash in mileu last evening. T/W spoke to patient regarding using restroom on unit; pt continues to report concern that someone can try to kill me because of who I am and who my family is ; when asked why someone would hurt him. Pt stated, because we are well known in [place] and they may hurt me because of it ; pt unable to specify who they are. denies AH/VH. Pt was offered for staff member to examine restroom and stand outside to assure no one is waiting for him; however pt continues to decline. Patient stated, I feel like you guys are playing a psychotic game with me or that they are doing this for their entertainment . 04/02: Patient continues to present similar to days prior. He continues to report paranoia regarding using restroom, shower and eating. Pt stated, I urinated in the trash early in the morning ; he continues to state he will consider using restroom. Pt reports taking bites of breakfast this morning. denies any side effects from Zyprexa other than feeling tired; pt stated, I am feeling a bit calmer . Per nursing, pt slept in chair in [facility] for 7 hours last night. Will continue to build rapport. 04/03: Patient continues to report paranoia regarding using restroom, shower and eating. Pt was offered single room d/t continuous urinating in [facility]; pt declined. Pt stated, I don't think a single room would help. I'm still having the same thoughts . Pt reports he has increased his fluid intake with water, juice and milk; however he continues to report only take a few bites of food. 04/04: Discussed medications increases with pt which he refuses at this time. Focused on discharge, and where his belongings are being stored at this time. 04/05: Patient declined to meet with T/W in unit office; pt stated, I don't feel comfortable going into the office because I think someone would hurt me ; pt reassured no one would hurt him, however, he continued to decline. Met with pt in unit hallway. Patient reports he did not urinate yesterday; he was educated regarding medical complications that can occur with decreased intake of fluids and food. Pt stated, I know but it's not like I'm dying . Pt refused labs. Discussed various solutions of pt feeling safe to use restroom or shower. pt stated, I'm still worried someone is going to hurt me. I'm not sure who, but it's because I am along the lines of royalty and it's putting me in harms way if I use the bathroom, shower or eat . Pt reporting zyprexa is making him too tired ; plan to DC. start risperidal 1mg PO daily with plan to switch to PLAZA; discussed with pt. T/W spoke to patient's mother, Chio, who reports has not left the house in 2 years and has not bathed or used the restroom in a year. She expressed concern over his wellbeing of not drinking or eating. She plans on calling patient to encourage him increase fluid intake. 04/07: Pt continues similar to days prior. Pt reports he did not urinate yesterday. Refused labs again. Hearing was held today; Pt was commited. T/W informed pt of plan to increase risperidal. Pt to receive additional risperidal 1mg PO bedtime dose to night. Starting tomorrow, Increase: Risperidal 2mg PO bedtime. 04/08: Staying in common area, however, keeping to self. per nursing, pt urinated in multiple cups last evening in common area and declined to use restroom. Pt reports feeling frustrated about not being discharged ; T/W discussed plan with medications again. Pt requesting to be discharged home today; asking multiple staff. Pt continues to report paranoia regarding using toilet, shower, eating/drinking. Encouraged to allow labs. 04/10: No changes. Encourage ongoing med adherence especially for Risperdal. Also encourage elevating legs as per hospitalist evaluation on 04/06/2024. Ordering an extra large compression stockings. 04/11: Met with pt in unit office. Continues to stay in common areas. paranoid. Pt discussed paranoia regarding eating; pt stated, how do you know someone isn't trying to poison me? People in this hospital. Per nursing, ate 10% of one meal yesterday and 25% of one meal today, has not eaten anything otherwise. Patient continues to refuse labs; shower (pt reports he has not bathed himself since admission and refusing to change clothes). Declining to use bathroom. perseverating on discharge to go back home where I can continue doing these things and be more comfortable . Continues similar to days prior; ? possible cheeking, will switch to risperidal liquid. Increase dose to Risperidal 3mg PO bedtime. Wound consult ordered for bilateral legs 04/12: Met with pt in unit office. Continues to stay in common areas; declining to go into assigned room for any reason. He continues paranoid, anxious, fearful. Pt argumentative and requesting discharge since he has been able to meet with T/W in the unit office for the past 2 days. Discussed that pt does not allow for the door to be closed, continues with paranoia stating my safety is a concern if the door is closed . Declining bathroom and shower. Discussed change of medication to liquid d/t possible cheeking. 04/13: Pt continues paranoid, anxious, fearful. T/W and social staff worker, Sabi, encouraged pt to walk into his room; lights were turned on to show no one was in the room and it was safe; however, pt continues to make paranoid statements of someone waiting to hurt him. Pt reports he did not urinate yesterday; discussed the importance of drinking fluids and eating meals. Per nursing, pt ate 5% of breakfast yesterday and declined lunch and dinner. Continue current tx plan. 04/14: Pt continues similar to days prior. Refusing to cross threshold into any room other than side office. Continues concerned that someone may hurt him if he goes into a room even if staff are with him. Per nursing, pt has not eaten or drank fluids today. He did urinate in trash can in the mileu and continues to refuse using restroom; despite having access to multiple bathrooms. Continue current tx plan. 04/15: T/W and RN attempting to reassure patient of his safety to be able to cross threshold into his room. Continues to believe someone may be hiding in the room to hurt him. Argumentative, attempting to change topic when asked questions about challenging his anxiety and paranoia. Per nursing, pt continues to have poor intake. Pt reports he did not urinate yesterday 04/17: No changes 04/18: Met with Dr. Lorenzana present. Pt continues to decline to go into bedroom or restroom; was willing to meet in side office with door open. He continues to discuss his anxiety and paranoia regarding being attacked by someone or snakes . Pt states he does not believe to have a mental illness ; requesting to be discharged home. Pt re-educated on goal of treatment. 04/19: Pt continues similar to days prior. Patient was given single room however pt continues to decline to enter room despite not having a room mate. He reports not urinating or having a bowel movement yesterday or today. Risperidal increased 4mg PO bedtime; pt aware. Labs ordered for tomorrow for monitoring of medical status while being treated with antipsychotics medications; informed consent obtained from guardian and patient is aware that informed consent was obtained. 04/20: pt continues to decline to enter his single room. Chair was placed between hallway and bedroom threshold; pt stated, I'm not going in there because I'm worried I might if I sit down . Continues with paranoid delusions. denies any side effects from increase in risperidal. encouraged to take Ativan to help with anxiety. Declined to go into his room to receive leg treatment. Declined to use restroom. 04/21: Continues with paranoid delusions; pt stated, I won't go in there because someone wants to kill me. I don't know who exactly. I know this from the narrative I hear and the symbolism I see on TV and commercial trucks . Declined to go into his room to receive leg treatment. Declined to use restroom. Eating/drinking minimally. Spoke with patient's mother and guardian, Chio, via phone. Reviewed current treatment plan and labs. 04/22: Patient continues similar to days prior. Continues with paranoid delusions; Declined to go into his room to receive leg treatment. Declined to use restroom. Eating/drinking minimally. Patient encouraged to challenge anxiety. 04/23 continue tx. 04/24 continue tx. increase risperidone to 6mg po qhs. 04/25: Continues paranoid and delusional. Refusing to go into room; pt stated, If I go in there I can be hurt with or without knowing ; when asked to elaborate, pt stated, they might hurt me, without me knowing I was hurt . Declining to use bathroom; observed to have distended abdomen, KUB ordered, pt was willing to have imaging done; awaiting results. Pt was willing to go into treatment room to use bath wipes and clean himself with RN present. Ordered Lactulose to assist with constipation; pt states he will consider taking this. 04/26: Continues paranoid and delusional. Refusing to go into room, bathroom or use commode in room; urinated in unit hallway. Refused Lactulose this morning despite encouragement. Continue current tx plan. 04/27: Continue current regimen and plans 04/28/24 Cont risp monitor response cont behavioral plan for helping re ability to lie down to enter a room encourage inc liquids latulose enema if needed 04/29: Keeping to self. urinated in trash bin in unit office. continues to refuse to go into bedroom or bathroom. offered commode and staff bathroom in unit hallway; however continues to decline. paranoid, delusional. Refusing lactulose despite education and no BM. 04/30: Continue current management and treatment plan. 05/01: Continue current management and treatment plan. 05/02: Keeping to self. Continues to refuse to enter bed room. He continues to report paranoia of someone trying to kill me if I go into the room ; pt encouraged to take one step over threshold, however, declined to do so; discussed increase in risperdal. Risperidal increased to 8mg PO bedtime. Patient reports having a bowel movement over the weekend but states he had the commode moved to door threshold so that his legs were outside the room. Patient reports he feels my paranoia is less but is unable to give examples of what has changed. Patient reports cold symptoms; allowed for covid/flu/rsv swab, which are negative; declined medication for cold symptoms. 05/03: Continues similar to days prior. paranoid. delusional. reviewed treatment plan with patient. continues to not use restroom, or enter room. continue current tx plan. 05/04/24- ongoing bizarre behavior and refusal to do ADLs independently 05/05: Pt states he feels something from med focused on discharge refusing to engage push againt behaviors that are self destructive 05/06: Lingering around nurses station today. Continues to refuse to enter bedroom or bathroom. Pt reports worry he may be killed if entering room; states he saw messages through the TV on [place], but would not go into detail. Discussed changing medication to Haldol d/t Risperidal being ineffective in paranoid delusions. Decrease Risperidal to 4mg PO bedtime. Start: Haldol 5mg PO bedtime Ativan 0.5mg PO bedtime T/W and Dr. Lorenzana spoke to patients mother, Chio, discussed medications and treatment plan. Chio is aware of medication changes. 05/09: Continues to linger around nurses station today. Continues paranoid and delusional. Argumentative today. Refusing to elevate legs on chair despite swelling; pt stated, I don't want to elevate my legs because I don't want to . Per nursing, last BM was 05/06/24. Pt continues to decline to go into room or bathroom even though he understands this will allow him to challenge his anxiety/paranoid withl the hopes of being discharges home. Patient stated, I'm not going to play with fate by going into the bathroom. All of you providers are compromising my safety . pt denies side effects from medication changes. Risperidal decreased to 2mg PO bedtime. Haldol increased to 10mg PO bedtime; pt aware. Encouraged to take Ativan to help with increased anxiety. 05/10: Patient observed lingering around nurses station; was asked by nursing to move multiple times for patient confidentiality. He continues anxious, paranoid and grandiose; patient stated, I told you I am a targeted person. I am a [place]. I do not understand why you would put me in dangers way and want me to use the bathroom . Patient continues to refuse to elevate legs; when asked why; patient stated, I want to see what happens ; patient educated regarding importance of elevating legs to decrease swelling. He was seen by hospitalist; please see note. Continue current treatment plan. 05/11: Patient continues similar to yesterday; anxious, paranoid, delusional, grandiose. Refusing leg care, elevate legs, lasix, teds; despite education from T/W and nursing. Per RN, pt had bowel movement but would not sit on commode, instead he removed bucket from commode and placed it on the floor in the bedroom door threshold and defecated while slightly bending at the knees. When done, pt went to pull up pants but was suggested to wipe self from RN and agreed to do so but would not wash hands afterwards. When T/W asked patient why he would not sit on commode; pt stated, you know my situation . DC risperidal. Increase Haldol to 15mg PO bedtime;pt aware. 05/12:anxious, paranoid, delusional, grandiose. Refusing leg care, elevate legs, lasix, teds; continued to be educated of importance. Pt stated, I'm not elevating my legs because they are not umcomfortable right now and I won't take the Lasix because I'm worried about losing too much water in my body. I won't take it . Continues to linger around nurses station; was asked by nursing to move away d/t pt confidentiality but would only take a step away for a short period before returning. T/W spoke to patient's mother, Chio, regarding treatment plan. 05/13: Patient is calmer today. Not argumentative. Patient reports he is considering taking a benzodiazapine to help with his anxiety. Continues to refuse leg care, elevate legs, lasix, teds; continued to be educated of importance. Continue current tx plan. 05/14 Patient remains with same presentation, standing in the milieu. Staff reports that patient is in the milieu day and night and does not go to his room. Oak Tanner asked how he feels on the Haldol and patient says he is feeling cloudy and less clear minded. Discussed head stockings and patient said that he wanted to see how his legs did for a few days off of the test stockings but seem to understand the purpose for them and said he would put them back on eventually. 05/15 Patient remains standing in the holguin only and will not going to his room. Earlier, patient has lunch tray had a peach container that was slightly opened and patient was convinced it was poisoned., ostensibly by kitchen staff.. At some point he received a fork with 1 of the prongs bent/missing which he found conclusive evidence that someone, kitchen staff is purposely doing this to bother him. Patient however was willing to engage with mortgage underwriter and reality testing and conceded that it is possible this was just a coincidence and that no one is trying to bother him however still thinks it is most likely that these things were intentional. Oak Tanner discussed medication and increasing Haldol. Patient said he does not think that would help as he feels Haldol is already making him think less clearly. -mortgage underwriter asked but patient still saying no to [place]ulam stockings Patient educated on: diagnosis, medication risk/benefits and medical condition Informed Consent: understands, does not understand and further education needed Reason for continued inpatient stay Substantial Risk for: inability to function Time Spent With Patient Time: Total time managing care of this patient today ____ minutes.
[2024-05-15 19:47] VITALS: BP 101/62; PULSE 87; RESP 16; TEMP 36.7; O2SAT 98
[2024-05-15] MEDS: Haloperidol Lactate Oral Conc 10 MG/5 ML ORAL.CONC 15 MG PO (22:38)
--- NOTE | 2024-05-16 09:01 | HO.PSYCHPN ---
Subjective Subjective Date of Service: 05/16/24 Reason For Visit: Schizophrenia Subjective Notes: Section 8 Interim History: Keeping to self. anxious. paranoid. grandiose. delusional. Pt continues to believe he is a royal and someone can try to kill me while I'm in the rooms . Increase haldol to 20mg PO bedtime;pt aware. T/W spoke with mother, Chio, regarding medication change. Medication Compliance: Intermittent Side effects from medications: No Attending Groups: No Review of Systems Constitutional: Reports as per HPI Eyes: Reports as per HPI Reports as per HPI Cardiovascular: Reports as per HPI Respiratory: Reports as per HPI Gastrointestinal: Reports as per HPI Genitourinary: Reports as per HPI Musculoskeletal: Reports as per HPI Skin/Breast: Reports as per HPI Reports as per HPI Psychiatric: Reports as per HPI Endocrine: Reports as per HPI Hematologic/Lymphatic: Reports as per HPI Allergic/Immunologic: Reports as per HPI Mental Status Exam Mental Status Exam Narrative: Pt is alert and oriented; behavior is calm; dressed in hospital attire; malodorous, disheveled; mood is described as anxious; affect mostly blunted; eye contact appropriate; Speech is normal rate, volume and not pressured; thought content with paranoid ideation; grandiose. denies SI/HI. Insight and judgment are poor. Diagnostics Vital Signs (24Hr): Vital Signs - 24 hr 05/15/24 09:48 05/15/24 19:47 Temperature 98.0 F Pulse Rate 87 Respiratory Rate 16 Blood Pressure 118/71 101/62 Pulse Oximetry 98 Oxygen Delivery Method Room Air BMI result Body Mass Index 28.5 Labs 04/20/24 08:23 04/20/24 08:23 Imaging Radiology Impressions: ITS Impressions KUB X-Ray 04/25/24 14:00 IMPRESSION: Large stool burden overall. Electronically signed by: Corin Escoto DO 04/25/2024 07:31 PM EST Medications Medications Current Medications Acetaminophen (Acetaminophen 325 Mg Tablet) 650 mg PO Q6H PRN PRN Reason: Headache/Pain Mild Scale (1-3) Al Hydroxide/Mg Hydroxide (Magnesium Hydrox/Alum Hydrox 30 Ml Oral.Susp) 30 ml PO Q6H PRN PRN Reason: Heartburn/Nausea Benztropine Mesylate (Benztropine Mesylate 1 Mg Tablet) 1 mg PO DAILY PRN PRN Reason: Extrapyramidal Effects Betamethasone Dipropion Augmented (Betamethasone Dip Aug 0.05% Cr 15 Gm Tube) 1 appl TOPICAL BID LENI; Protocol Last Admin: 05/15/24 22:40 Dose: Not Given Furosemide (Furosemide 20 Mg Tablet) 20 mg PO DAILY LENI; Protocol Last Admin: 05/15/24 09:48 Dose: Not Given Haloperidol Lactate (Haloperidol Lactate 5 Mg/Ml Vial) 5 mg IM DAILY PRN PRN Reason: Psychosis Haloperidol Lactate (Haloperidol Lactate Oral Conc 10 Mg/5 Ml Oral.Conc) 15 mg PO BEDTIME LENI Last Admin: 05/15/24 22:38 Dose: 15 mg Hydroxyzine HCl (Hydroxyzine Hcl 25 Mg Tablet) 25 mg PO Q6H PRN PRN Reason: Anxiety Lactic Acid (Ammonium Lactate 12 % Cream 140 Gm Tube) 1 appl TOPICAL BID PRN; Protocol PRN Reason: Dry, scaly skin Last Admin: 04/18/24 20:53 Dose: 1 appl Lactic Acid (Ammonium Lactate 12 % Lotion 226 Gm Bottle) 1 appl TOPICAL DAILY LNEI; Protocol Last Admin: 05/15/24 09:47 Dose: Not Given Lactulose (Lactulose 20 Gm/30 Ml Solution) 40 gm PO BID LENI Last Admin: 05/15/24 22:40 Dose: Not Given Lorazepam (Lorazepam 0.5 Mg Tablet) 0.5 mg PO BEDTIME LENI Last Admin: 05/15/24 22:40 Dose: Not Given Magnesium Hydroxide (Milk Of Magnesia 30 Ml Oral.Susp) 30 ml PO DAILY PRN PRN Reason: Constipation Psyllium Hydrophilic Mucilloid (Psyllium Seed 3.7 Gm Packet) 3.7 gm PO DAILY LENI Last Admin: 05/15/24 09:48 Dose: Not Given Trazodone HCl (Trazodone Hcl 50 Mg Tablet) 50 mg PO BEDTIME MRX1 PRN PRN Reason: Insomnia Allergies Allergies Allergy/AdvReac Type Severity Reaction Status Date / Time Unable to Assess Allergy Verified 03/25/24 21:15 Assessment & Plan Assessment & Plan (1) Schizophrenia: Status: Acute Code(s): F20.9 - Schizophrenia, unspecified (2) Lower extremity edema: Status: Acute Code(s): R60.0 - Localized edema Plan 03/26: risperidone 1/2. collateral from mother. clarify legal circumstance/rolando's order. 03/27: refusing meds, not leaving his chair. urinating in cup beneath blanket. requesting immediate discharge. continue to offer medication. clarify legal circumstance and ability to involuntarily administer medication. diamond warning provided. 03/28: Sitting in chair in milieu. Per nursing, patient urinating in cups under blankets. Patient was notified that he must go to his room to use the toilet and can not urinate in common areas. Patient was able to walk down unit hallway with no assistance. Patient is requesting to have a wheelchair d/t being terrified of falling . Patient stated, I do not have any kind of condition. I am just worried about falling . Patient reports that he has not been eating much due to fear of being poisoned however, he would not elaborate as to who he believes is poisoning him. He reports at home he has been urinating in milk cartons and defecating in trash bags and having his mother dispose of these items. Patient agreed to take 1 mg of Risperdal PO; however, expressed paranoia towards RN about being a different medication/dosage despite being shown packaging. T/W obtained information from patient's mother, Chio; Chio reports patient has not been using the toilet for the past two years due to being afraid that snakes will get him and voices telling him the same. Chio reports, pt is also afraid of walking d/t fear of hitting his head. She reports patient has never been on antipsychotics and has only taken anti-anxiety medications for 3 weeks which patient discontinued. She denies history of inpatient psychiatric hospitalizations. She reports having guardianship due to patient being unable to care for self. 03/29: Observing pacing unit hallway. Keeping to self. Covering self with blanket. Per nursing, pt slept in chair in milieu for 5 hours last night. Refused medications last night and this morning. Pt reports he does not want to sleep in a bed d/t feeling more vulnerable when laying down . Patient reports he does not want to go into the bathroom because he is paranoid that something might happen in there or someone might be waiting for me in there . Pt's 3 day up 03/30/24; he is requesting to be discharged home. 03/30: Observed standing at nurses station throughout shift; not taking redirection from staff to please step away for pt confidentiality. Argumentative. 3 day up today; filed on; pt notified. Pt stated, you can't keep me here. I'm going to jose you and make your head spin 3 times! Your documents are not real! Refused Zyprexa. Per nursing, pt urinated in carton in unit hallway;continues to refuse utilizing bathroom. Per nursing, pt did not eat anything today. 03/31: Pacing in front of nurses station. disheveled, malodorous; encouraged to shower, however pt declined despite being offered shower chair and staff member to wait outside shower room if assistance is needed. Per nursing, pt urinated in cup and sensory room floor last evening. Pt continues to report paranoia regarding using bathroom; pt stated, I'm worried someone will be in the bathroom waiting for me because of who I am . When asked why he believes someone would want to hurt him; pt stated, I can't discuss that . denies SI/HI/VH/AH. He reports not eating d/t concerns that he may be poisoned by someone ; observed drinking water from water bottle. Pt offered Zyprexa PO per court ordered treatment plan; per nursing, pt initially refused then agreed to take. 04/01: Patient continues to stand or pace in front of nurses station. disheveled, malodorous; per nursing, pt urinated in trash in mileu last evening. T/W spoke to patient regarding using restroom on unit; pt continues to report concern that someone can try to kill me because of who I am and who my family is ; when asked why someone would hurt him. Pt stated, because we are well known in [place] and they may hurt me because of it ; pt unable to specify who they are. denies AH/VH. Pt was offered for staff member to examine restroom and stand outside to assure no one is waiting for him; however pt continues to decline. Patient stated, I feel like you guys are playing a psychotic game with me or that they are doing this for their entertainment . 04/02: Patient continues to present similar to days prior. He continues to report paranoia regarding using restroom, shower and eating. Pt stated, I urinated in the trash early in the morning ; he continues to state he will consider using restroom. Pt reports taking bites of breakfast this morning. denies any side effects from Zyprexa other than feeling tired; pt stated, I am feeling a bit calmer . Per nursing, pt slept in chair in [facility] for 7 hours last night. Will continue to build rapport. 04/03: Patient continues to report paranoia regarding using restroom, shower and eating. Pt was offered single room d/t continuous urinating in [facility]; pt declined. Pt stated, I don't think a single room would help. I'm still having the same thoughts . Pt reports he has increased his fluid intake with water, juice and milk; however he continues to report only take a few bites of food. 04/04: Discussed medications increases with pt which he refuses at this time. Focused on discharge, and where his belongings are being stored at this time. 04/05: Patient declined to meet with T/W in unit office; pt stated, I don't feel comfortable going into the office because I think someone would hurt me ; pt reassured no one would hurt him, however, he continued to decline. Met with pt in unit hallway. Patient reports he did not urinate yesterday; he was educated regarding medical complications that can occur with decreased intake of fluids and food. Pt stated, I know but it's not like I'm dying . Pt refused labs. Discussed various solutions of pt feeling safe to use restroom or shower. pt stated, I'm still worried someone is going to hurt me. I'm not sure who, but it's because I am along the lines of royalty and it's putting me in harms way if I use the bathroom, shower or eat . Pt reporting zyprexa is making him too tired ; plan to DC. start risperidal 1mg PO daily with plan to switch to PLAZA; discussed with pt. T/W spoke to patient's mother, Chio, who reports has not left the house in 2 years and has not bathed or used the restroom in a year. She expressed concern over his wellbeing of not drinking or eating. She plans on calling patient to encourage him increase fluid intake. 04/07: Pt continues similar to days prior. Pt reports he did not urinate yesterday. Refused labs again. Hearing was held today; Pt was commited. T/W informed pt of plan to increase risperidal. Pt to receive additional risperidal 1mg PO bedtime dose to night. Starting tomorrow, Increase: Risperidal 2mg PO bedtime. 04/08: Staying in common area, however, keeping to self. per nursing, pt urinated in multiple cups last evening in common area and declined to use restroom. Pt reports feeling frustrated about not being discharged ; T/W discussed plan with medications again. Pt requesting to be discharged home today; asking multiple staff. Pt continues to report paranoia regarding using toilet, shower, eating/drinking. Encouraged to allow labs. 04/10: No changes. Encourage ongoing med adherence especially for Risperdal. Also encourage elevating legs as per hospitalist evaluation on 04/06/2024. Ordering an extra large compression stockings. 04/11: Met with pt in unit office. Continues to stay in common areas. paranoid. Pt discussed paranoia regarding eating; pt stated, how do you know someone isn't trying to poison me? People in this hospital. Per nursing, ate 10% of one meal yesterday and 25% of one meal today, has not eaten anything otherwise. Patient continues to refuse labs; shower (pt reports he has not bathed himself since admission and refusing to change clothes). Declining to use bathroom. perseverating on discharge to go back home where I can continue doing these things and be more comfortable . Continues similar to days prior; ? possible cheeking, will switch to risperidal liquid. Increase dose to Risperidal 3mg PO bedtime. Wound consult ordered for bilateral legs 04/12: Met with pt in unit office. Continues to stay in common areas; declining to go into assigned room for any reason. He continues paranoid, anxious, fearful. Pt argumentative and requesting discharge since he has been able to meet with T/W in the unit office for the past 2 days. Discussed that pt does not allow for the door to be closed, continues with paranoia stating my safety is a concern if the door is closed . Declining bathroom and shower. Discussed change of medication to liquid d/t possible cheeking. 04/13: Pt continues paranoid, anxious, fearful. T/W and director of social services, Sabi, encouraged pt to walk into his room; lights were turned on to show no one was in the room and it was safe; however, pt continues to make paranoid statements of someone waiting to hurt him. Pt reports he did not urinate yesterday; discussed the importance of drinking fluids and eating meals. Per nursing, pt ate 5% of breakfast yesterday and declined lunch and dinner. Continue current tx plan. 04/14: Pt continues similar to days prior. Refusing to cross threshold into any room other than side office. Continues concerned that someone may hurt him if he goes into a room even if staff are with him. Per nursing, pt has not eaten or drank fluids today. He did urinate in trash can in the mileu and continues to refuse using restroom; despite having access to multiple bathrooms. Continue current tx plan. 04/15: T/W and RN attempting to reassure patient of his safety to be able to cross threshold into his room. Continues to believe someone may be hiding in the room to hurt him. Argumentative, attempting to change topic when asked questions about challenging his anxiety and paranoia. Per nursing, pt continues to have poor intake. Pt reports he did not urinate yesterday 04/17: No changes 04/18: Met with Dr. Lorenzana present. Pt continues to decline to go into bedroom or restroom; was willing to meet in side office with door open. He continues to discuss his anxiety and paranoia regarding being attacked by someone or snakes . Pt states he does not believe to have a mental illness ; requesting to be discharged home. Pt re-educated on goal of treatment. 04/19: Pt continues similar to days prior. Patient was given single room however pt continues to decline to enter room despite not having a room mate. He reports not urinating or having a bowel movement yesterday or today. Risperidal increased 4mg PO bedtime; pt aware. Labs ordered for tomorrow for monitoring of medical status while being treated with antipsychotics medications; informed consent obtained from guardian and patient is aware that informed consent was obtained. 04/20: pt continues to decline to enter his single room. Chair was placed between hallway and bedroom threshold; pt stated, I'm not going in there because I'm worried I might if I sit down . Continues with paranoid delusions. denies any side effects from increase in risperidal. encouraged to take Ativan to help with anxiety. Declined to go into his room to receive leg treatment. Declined to use restroom. 04/21: Continues with paranoid delusions; pt stated, I won't go in there because someone wants to kill me. I don't know who exactly. I know this from the narrative I hear and the symbolism I see on TV and commercial trucks . Declined to go into his room to receive leg treatment. Declined to use restroom. Eating/drinking minimally. Spoke with patient's mother and guardian, Chio, via phone. Reviewed current treatment plan and labs. 04/22: Patient continues similar to days prior. Continues with paranoid delusions; Declined to go into his room to receive leg treatment. Declined to use restroom. Eating/drinking minimally. Patient encouraged to challenge anxiety. 04/23 continue tx. 04/24 continue tx. increase risperidone to 6mg po qhs. 04/25: Continues paranoid and delusional. Refusing to go into room; pt stated, If I go in there I can be hurt with or without knowing ; when asked to elaborate, pt stated, they might hurt me, without me knowing I was hurt . Declining to use bathroom; observed to have distended abdomen, KUB ordered, pt was willing to have imaging done; awaiting results. Pt was willing to go into treatment room to use bath wipes and clean himself with RN present. Ordered Lactulose to assist with constipation; pt states he will consider taking this. 04/26: Continues paranoid and delusional. Refusing to go into room, bathroom or use commode in room; urinated in unit hallway. Refused Lactulose this morning despite encouragement. Continue current tx plan. 04/27: Continue current regimen and plans 04/28/24 Cont risp monitor response cont behavioral plan for helping re ability to lie down to enter a room encourage inc liquids latulose enema if needed 04/29: Keeping to self. urinated in trash bin in unit office. continues to refuse to go into bedroom or bathroom. offered commode and staff bathroom in unit hallway; however continues to decline. paranoid, delusional. Refusing lactulose despite education and no BM. 04/30: Continue current management and treatment plan. 05/01: Continue current management and treatment plan. 05/02: Keeping to self. Continues to refuse to enter bed room. He continues to report paranoia of someone trying to kill me if I go into the room ; pt encouraged to take one step over threshold, however, declined to do so; discussed increase in risperdal. Risperidal increased to 8mg PO bedtime. Patient reports having a bowel movement over the weekend but states he had the commode moved to door threshold so that his legs were outside the room. Patient reports he feels my paranoia is less but is unable to give examples of what has changed. Patient reports cold symptoms; allowed for covid/flu/rsv swab, which are negative; declined medication for cold symptoms. 05/03: Continues similar to days prior. paranoid. delusional. reviewed treatment plan with patient. continues to not use restroom, or enter room. continue current tx plan. 05/04/24- ongoing bizarre behavior and refusal to do ADLs independently 05/05: Pt states he feels something from med focused on discharge refusing to engage push againt behaviors that are self destructive 05/06: Lingering around nurses station today. Continues to refuse to enter bedroom or bathroom. Pt reports worry he may be killed if entering room; states he saw messages through the TV on [place], but would not go into detail. Discussed changing medication to Haldol d/t Risperidal being ineffective in paranoid delusions. Decrease Risperidal to 4mg PO bedtime. Start: Haldol 5mg PO bedtime Ativan 0.5mg PO bedtime T/W and Dr. Lorenzana spoke to patients mother, Chio, discussed medications and treatment plan. Chio is aware of medication changes. 05/09: Continues to linger around nurses station today. Continues paranoid and delusional. Argumentative today. Refusing to elevate legs on chair despite swelling; pt stated, I don't want to elevate my legs because I don't want to . Per nursing, last BM was 05/06/24. Pt continues to decline to go into room or bathroom even though he understands this will allow him to challenge his anxiety/paranoid withl the hopes of being discharges home. Patient stated, I'm not going to play with fate by going into the bathroom. All of you providers are compromising my safety . pt denies side effects from medication changes. Risperidal decreased to 2mg PO bedtime. Haldol increased to 10mg PO bedtime; pt aware. Encouraged to take Ativan to help with increased anxiety. 05/10: Patient observed lingering around nurses station; was asked by nursing to move multiple times for patient confidentiality. He continues anxious, paranoid and grandiose; patient stated, I told you I am a targeted person. I am a [place]. I do not understand why you would put me in dangers way and want me to use the bathroom . Patient continues to refuse to elevate legs; when asked why; patient stated, I want to see what happens ; patient educated regarding importance of elevating legs to decrease swelling. He was seen by hospitalist; please see note. Continue current treatment plan. 05/11: Patient continues similar to yesterday; anxious, paranoid, delusional, grandiose. Refusing leg care, elevate legs, lasix, teds; despite education from T/W and nursing. Per RN, pt had bowel movement but would not sit on commode, instead he removed bucket from commode and placed it on the floor in the bedroom door threshold and defecated while slightly bending at the knees. When done, pt went to pull up pants but was suggested to wipe self from RN and agreed to do so but would not wash hands afterwards. When T/W asked patient why he would not sit on commode; pt stated, you know my situation . DC risperidal. Increase Haldol to 15mg PO bedtime;pt aware. 05/12:anxious, paranoid, delusional, grandiose. Refusing leg care, elevate legs, lasix, teds; continued to be educated of importance. Pt stated, I'm not elevating my legs because they are not umcomfortable right now and I won't take the Lasix because I'm worried about losing too much water in my body. I won't take it . Continues to linger around nurses station; was asked by nursing to move away d/t pt confidentiality but would only take a step away for a short period before returning. T/W spoke to patient's mother, Chio, regarding treatment plan. 05/13: Patient is calmer today. Not argumentative. Patient reports he is considering taking a benzodiazapine to help with his anxiety. Continues to refuse leg care, elevate legs, lasix, teds; continued to be educated of importance. Continue current tx plan. 05/14 Patient remains with same presentation, standing in the milieu. Staff reports that patient is in the milieu day and night and does not go to his room. Cable Technician asked how he feels on the Haldol and patient says he is feeling cloudy and less clear minded. Discussed head stockings and patient said that he wanted to see how his legs did for a few days off of the test stockings but seem to understand the purpose for them and said he would put them back on eventually. 05/16: Keeping to self. anxious. paranoid. grandiose. delusional. Pt continues to believe he is a royal and someone can try to kill me while I'm in the rooms . Increase haldol to 20mg PO bedtime;pt aware. refusing to elevate legs, teds, leg care. T/W spoke with mother, Chio, regarding medication change. Patient educated on: medication risk/benefits Guardian/Caregiver educated on: medication risk/benefits Reason for continued inpatient stay Substantial Risk for: med/psych decompensation Time Spent With Patient Time: Total time managing care of this patient today _20___ minutes.
[2024-05-16 19:45] VITALS: BP 105/55; PULSE 76; RESP 16; TEMP 36.4; O2SAT 99
[2024-05-16] MEDS: Haloperidol Lactate Oral Conc 10 MG/5 ML ORAL.CONC 20 MG PO (21:39)
--- NOTE | 2024-05-17 09:39 | HO.PSYCHPN ---
Subjective Subjective Date of Service: 05/17/24 Reason For Visit: Schizophrenia Subjective Notes: Section 8 Interim History: Presents similar to days prior. Continues anxious, paranoid, grandiose, delusional. He reports increased anxiety but declines to take anti-anxiety medication. Continues to decline leg care or elevate legs; continues to be educated regarding importance of treatment. Pt focused on discharged; does not believe his behaviors or thoughts are impaired. per nursing, had BM yesterday while standing over commode bucket. Medication Compliance: Intermittent Side effects from medications: No Attending Groups: No Review of Systems Constitutional: Reports as per HPI Eyes: Reports as per HPI Reports as per HPI Cardiovascular: Reports as per HPI Respiratory: Reports as per HPI Gastrointestinal: Reports as per HPI Genitourinary: Reports as per HPI Musculoskeletal: Reports as per HPI Skin/Breast: Reports as per HPI Reports as per HPI Psychiatric: Reports as per HPI Endocrine: Reports as per HPI Hematologic/Lymphatic: Reports as per HPI Allergic/Immunologic: Reports as per HPI Mental Status Exam Mental Status Exam Narrative: Pt is alert and oriented; behavior is calm; dressed in hospital attire; malodorous, disheveled; mood is described as anxious; affect mostly blunted; eye contact appropriate; Speech is normal rate, volume and not pressured; thought content with paranoid ideation; grandiose. denies SI/HI. Insight and judgment are poor. Diagnostics Vital Signs (24Hr): Vital Signs - 24 hr 05/16/24 19:45 Temperature 97.5 F Pulse Rate 76 Respiratory Rate 16 Blood Pressure 105/55 L Pulse Oximetry 99 Oxygen Delivery Method Room Air BMI result Body Mass Index 28.5 Labs 04/20/24 08:23 04/20/24 08:23 Imaging Radiology Impressions: ITS Impressions KUB X-Ray 04/25/24 14:00 IMPRESSION: Large stool burden overall. Electronically signed by: Corin Escoto DO 04/25/2024 07:31 PM EST Medications Medications Current Medications Acetaminophen (Acetaminophen 325 Mg Tablet) 650 mg PO Q6H PRN PRN Reason: Headache/Pain Mild Scale (1-3) Al Hydroxide/Mg Hydroxide (Magnesium Hydrox/Alum Hydrox 30 Ml Oral.Susp) 30 ml PO Q6H PRN PRN Reason: Heartburn/Nausea Benztropine Mesylate (Benztropine Mesylate 1 Mg Tablet) 1 mg PO DAILY PRN PRN Reason: Extrapyramidal Effects Betamethasone Dipropion Augmented (Betamethasone Dip Aug 0.05% Cr 15 Gm Tube) 1 appl TOPICAL BID LENI; Protocol Last Admin: 05/16/24 21:41 Dose: Not Given Furosemide (Furosemide 20 Mg Tablet) 20 mg PO DAILY LENI; Protocol Last Admin: 05/16/24 10:30 Dose: Not Given Haloperidol Lactate (Haloperidol Lactate 5 Mg/Ml Vial) 5 mg IM DAILY PRN PRN Reason: Psychosis Haloperidol Lactate (Haloperidol Lactate Oral Conc 10 Mg/5 Ml Oral.Conc) 20 mg PO BEDTIME LENI Last Admin: 05/16/24 21:39 Dose: 20 mg Hydroxyzine HCl (Hydroxyzine Hcl 25 Mg Tablet) 25 mg PO Q6H PRN PRN Reason: Anxiety Lactic Acid (Ammonium Lactate 12 % Cream 140 Gm Tube) 1 appl TOPICAL BID PRN; Protocol PRN Reason: Dry, scaly skin Last Admin: 04/18/24 20:53 Dose: 1 appl Lactic Acid (Ammonium Lactate 12 % Lotion 226 Gm Bottle) 1 appl TOPICAL DAILY LENI; Protocol Last Admin: 05/16/24 10:30 Dose: Not Given Lactulose (Lactulose 20 Gm/30 Ml Solution) 40 gm PO BID LENI Last Admin: 05/16/24 21:41 Dose: Not Given Lorazepam (Lorazepam 0.5 Mg Tablet) 0.5 mg PO BEDTIME LENI Last Admin: 05/16/24 21:41 Dose: Not Given Magnesium Hydroxide (Milk Of Magnesia 30 Ml Oral.Susp) 30 ml PO DAILY PRN PRN Reason: Constipation Psyllium Hydrophilic Mucilloid (Psyllium Seed 3.7 Gm Packet) 3.7 gm PO DAILY LENI Last Admin: 05/16/24 10:31 Dose: Not Given Trazodone HCl (Trazodone Hcl 50 Mg Tablet) 50 mg PO BEDTIME MRX1 PRN PRN Reason: Insomnia Allergies Allergies Allergy/AdvReac Type Severity Reaction Status Date / Time Unable to Assess Allergy Verified 03/25/24 21:15 Assessment & Plan Assessment & Plan (1) Schizophrenia: Status: Acute Code(s): F20.9 - Schizophrenia, unspecified (2) Lower extremity edema: Status: Acute Code(s): R60.0 - Localized edema Plan 11/23: risperidone 1/2. collateral from mother. clarify legal circumstance/rolando's order. 03/27: refusing meds, not leaving his chair. urinating in cup beneath blanket. requesting immediate discharge. continue to offer medication. clarify legal circumstance and ability to involuntarily administer medication. diamond warning provided. 03/28: Sitting in chair in milieu. Per nursing, patient urinating in cups under blankets. Patient was notified that he must go to his room to use the toilet and can not urinate in common areas. Patient was able to walk down unit hallway with no assistance. Patient is requesting to have a wheelchair d/t being terrified of falling . Patient stated, I do not have any kind of condition. I am just worried about falling . Patient reports that he has not been eating much due to fear of being poisoned however, he would not elaborate as to who he believes is poisoning him. He reports at home he has been urinating in milk cartons and defecating in trash bags and having his mother dispose of these items. Patient agreed to take 1 mg of Risperdal PO; however, expressed paranoia towards RN about being a different medication/dosage despite being shown packaging. T/W obtained information from patient's mother, Chio; Chio reports patient has not been using the toilet for the past two years due to being afraid that snakes will get him and voices telling him the same. Chio reports, pt is also afraid of walking d/t fear of hitting his head. She reports patient has never been on antipsychotics and has only taken anti-anxiety medications for 3 weeks which patient discontinued. She denies history of inpatient psychiatric hospitalizations. She reports having guardianship due to patient being unable to care for self. 03/29: Observing pacing unit hallway. Keeping to self. Covering self with blanket. Per nursing, pt slept in chair in milieu for 5 hours last night. Refused medications last night and this morning. Pt reports he does not want to sleep in a bed d/t feeling more vulnerable when laying down . Patient reports he does not want to go into the bathroom because he is paranoid that something might happen in there or someone might be waiting for me in there . Pt's 3 day up 03/30/24; he is requesting to be discharged home. 03/30: Observed standing at nurses station throughout shift; not taking redirection from staff to please step away for pt confidentiality. Argumentative. 3 day up today; filed on; pt notified. Pt stated, you can't keep me here. I'm going to jose you and make your head spin 3 times! Your documents are not real! Refused Zyprexa. Per nursing, pt urinated in carton in unit hallway;continues to refuse utilizing bathroom. Per nursing, pt did not eat anything today. 03/31: Pacing in front of nurses station. disheveled, malodorous; encouraged to shower, however pt declined despite being offered shower chair and staff member to wait outside shower room if assistance is needed. Per nursing, pt urinated in cup and sensory room floor last evening. Pt continues to report paranoia regarding using bathroom; pt stated, I'm worried someone will be in the bathroom waiting for me because of who I am . When asked why he believes someone would want to hurt him; pt stated, I can't discuss that . denies SI/HI/VH/AH. He reports not eating d/t concerns that he may be poisoned by someone ; observed drinking water from water bottle. Pt offered Zyprexa PO per court ordered treatment plan; per nursing, pt initially refused then agreed to take. 04/01: Patient continues to stand or pace in front of nurses station. disheveled, malodorous; per nursing, pt urinated in trash in mileu last evening. T/W spoke to patient regarding using restroom on unit; pt continues to report concern that someone can try to kill me because of who I am and who my family is ; when asked why someone would hurt him. Pt stated, because we are well known in [place] and they may hurt me because of it ; pt unable to specify who they are. denies AH/VH. Pt was offered for staff member to examine restroom and stand outside to assure no one is waiting for him; however pt continues to decline. Patient stated, I feel like you guys are playing a psychotic game with me or that they are doing this for their entertainment . 04/02: Patient continues to present similar to days prior. He continues to report paranoia regarding using restroom, shower and eating. Pt stated, I urinated in the trash early in the morning ; he continues to state he will consider using restroom. Pt reports taking bites of breakfast this morning. denies any side effects from Zyprexa other than feeling tired; pt stated, I am feeling a bit calmer . Per nursing, pt slept in chair in [facility] for 7 hours last night. Will continue to build rapport. 04/03: Patient continues to report paranoia regarding using restroom, shower and eating. Pt was offered single room d/t continuous urinating in [facility]; pt declined. Pt stated, I don't think a single room would help. I'm still having the same thoughts . Pt reports he has increased his fluid intake with water, juice and milk; however he continues to report only take a few bites of food. 04/04: Discussed medications increases with pt which he refuses at this time. Focused on discharge, and where his belongings are being stored at this time. 04/05: Patient declined to meet with T/W in unit office; pt stated, I don't feel comfortable going into the office because I think someone would hurt me ; pt reassured no one would hurt him, however, he continued to decline. Met with pt in unit hallway. Patient reports he did not urinate yesterday; he was educated regarding medical complications that can occur with decreased intake of fluids and food. Pt stated, I know but it's not like I'm dying . Pt refused labs. Discussed various solutions of pt feeling safe to use restroom or shower. pt stated, I'm still worried someone is going to hurt me. I'm not sure who, but it's because I am along the lines of royalty and it's putting me in harms way if I use the bathroom, shower or eat . Pt reporting zyprexa is making him too tired ; plan to DC. start risperidal 1mg PO daily with plan to switch to PLAZA; discussed with pt. T/W spoke to patient's mother, Chio, who reports has not left the house in 2 years and has not bathed or used the restroom in a year. She expressed concern over his wellbeing of not drinking or eating. She plans on calling patient to encourage him increase fluid intake. 12/5: Pt continues similar to days prior. Pt reports he did not urinate yesterday. Refused labs again. Hearing was held today; Pt was commited. T/W informed pt of plan to increase risperidal. Pt to receive additional risperidal 1mg PO bedtime dose to night. Starting tomorrow, Increase: Risperidal 2mg PO bedtime. 04/08: Staying in common area, however, keeping to self. per nursing, pt urinated in multiple cups last evening in common area and declined to use restroom. Pt reports feeling frustrated about not being discharged ; T/W discussed plan with medications again. Pt requesting to be discharged home today; asking multiple staff. Pt continues to report paranoia regarding using toilet, shower, eating/drinking. Encouraged to allow labs. 04/10: No changes. Encourage ongoing med adherence especially for Risperdal. Also encourage elevating legs as per hospitalist evaluation on 04/06/2024. Ordering an extra large compression stockings. 04/11: Met with pt in unit office. Continues to stay in common areas. paranoid. Pt discussed paranoia regarding eating; pt stated, how do you know someone isn't trying to poison me? People in this hospital. Per nursing, ate 10% of one meal yesterday and 25% of one meal today, has not eaten anything otherwise. Patient continues to refuse labs; shower (pt reports he has not bathed himself since admission and refusing to change clothes). Declining to use bathroom. perseverating on discharge to go back home where I can continue doing these things and be more comfortable . Continues similar to days prior; ? possible cheeking, will switch to risperidal liquid. Increase dose to Risperidal 3mg PO bedtime. Wound consult ordered for bilateral legs 04/12: Met with pt in unit office. Continues to stay in common areas; declining to go into assigned room for any reason. He continues paranoid, anxious, fearful. Pt argumentative and requesting discharge since he has been able to meet with T/W in the unit office for the past 2 days. Discussed that pt does not allow for the door to be closed, continues with paranoia stating my safety is a concern if the door is closed . Declining bathroom and shower. Discussed change of medication to liquid d/t possible cheeking. 04/13: Pt continues paranoid, anxious, fearful. T/W and drug abuse social worker, Sabi, encouraged pt to walk into his room; lights were turned on to show no one was in the room and it was safe; however, pt continues to make paranoid statements of someone waiting to hurt him. Pt reports he did not urinate yesterday; discussed the importance of drinking fluids and eating meals. Per nursing, pt ate 5% of breakfast yesterday and declined lunch and dinner. Continue current tx plan. 04/14: Pt continues similar to days prior. Refusing to cross threshold into any room other than side office. Continues concerned that someone may hurt him if he goes into a room even if staff are with him. Per nursing, pt has not eaten or drank fluids today. He did urinate in trash can in the mileu and continues to refuse using restroom; despite having access to multiple bathrooms. Continue current tx plan. 04/15: T/W and RN attempting to reassure patient of his safety to be able to cross threshold into his room. Continues to believe someone may be hiding in the room to hurt him. Argumentative, attempting to change topic when asked questions about challenging his anxiety and paranoia. Per nursing, pt continues to have poor intake. Pt reports he did not urinate yesterday 04/17: No changes 04/18: Met with Dr. Lorenzana present. Pt continues to decline to go into bedroom or restroom; was willing to meet in side office with door open. He continues to discuss his anxiety and paranoia regarding being attacked by someone or snakes . Pt states he does not believe to have a mental illness ; requesting to be discharged home. Pt re-educated on goal of treatment. 04/19: Pt continues similar to days prior. Patient was given single room however pt continues to decline to enter room despite not having a room mate. He reports not urinating or having a bowel movement yesterday or today. Risperidal increased 4mg PO bedtime; pt aware. Labs ordered for tomorrow for monitoring of medical status while being treated with antipsychotics medications; informed consent obtained from guardian and patient is aware that informed consent was obtained. 04/20: pt continues to decline to enter his single room. Chair was placed between hallway and bedroom threshold; pt stated, I'm not going in there because I'm worried I might if I sit down . Continues with paranoid delusions. denies any side effects from increase in risperidal. encouraged to take Ativan to help with anxiety. Declined to go into his room to receive leg treatment. Declined to use restroom. 04/21: Continues with paranoid delusions; pt stated, I won't go in there because someone wants to kill me. I don't know who exactly. I know this from the narrative I hear and the symbolism I see on TV and commercial trucks . Declined to go into his room to receive leg treatment. Declined to use restroom. Eating/drinking minimally. Spoke with patient's mother and guardian, Chio, via phone. Reviewed current treatment plan and labs. 04/22: Patient continues similar to days prior. Continues with paranoid delusions; Declined to go into his room to receive leg treatment. Declined to use restroom. Eating/drinking minimally. Patient encouraged to challenge anxiety. 04/23 continue tx. 04/24 continue tx. increase risperidone to 6mg po qhs. 04/25: Continues paranoid and delusional. Refusing to go into room; pt stated, If I go in there I can be hurt with or without knowing ; when asked to elaborate, pt stated, they might hurt me, without me knowing I was hurt . Declining to use bathroom; observed to have distended abdomen, KUB ordered, pt was willing to have imaging done; awaiting results. Pt was willing to go into treatment room to use bath wipes and clean himself with RN present. Ordered Lactulose to assist with constipation; pt states he will consider taking this. 04/26: Continues paranoid and delusional. Refusing to go into room, bathroom or use commode in room; urinated in unit hallway. Refused Lactulose this morning despite encouragement. Continue current tx plan. 04/27: Continue current regimen and plans 04/28/24 Cont risp monitor response cont behavioral plan for helping re ability to lie down to enter a room encourage inc liquids latulose enema if needed 04/29: Keeping to self. urinated in trash bin in unit office. continues to refuse to go into bedroom or bathroom. offered commode and staff bathroom in unit hallway; however continues to decline. paranoid, delusional. Refusing lactulose despite education and no BM. 04/30: Continue current management and treatment plan. 05/01: Continue current management and treatment plan. 05/02: Keeping to self. Continues to refuse to enter bed room. He continues to report paranoia of someone trying to kill me if I go into the room ; pt encouraged to take one step over threshold, however, declined to do so; discussed increase in risperdal. Risperidal increased to 8mg PO bedtime. Patient reports having a bowel movement over the weekend but states he had the commode moved to door threshold so that his legs were outside the room. Patient reports he feels my paranoia is less but is unable to give examples of what has changed. Patient reports cold symptoms; allowed for covid/flu/rsv swab, which are negative; declined medication for cold symptoms. 05/03: Continues similar to days prior. paranoid. delusional. reviewed treatment plan with patient. continues to not use restroom, or enter room. continue current tx plan. 05/04/24- ongoing bizarre behavior and refusal to do ADLs independently 05/05: Pt states he feels something from med focused on discharge refusing to engage push againt behaviors that are self destructive 05/06: Lingering around nurses station today. Continues to refuse to enter bedroom or bathroom. Pt reports worry he may be killed if entering room; states he saw messages through the TV on [place], but would not go into detail. Discussed changing medication to Haldol d/t Risperidal being ineffective in paranoid delusions. Decrease Risperidal to 4mg PO bedtime. Start: Haldol 5mg PO bedtime Ativan 0.5mg PO bedtime T/W and Dr. Lorenzana spoke to patients mother, Chio, discussed medications and treatment plan. Chio is aware of medication changes. 05/09: Continues to linger around nurses station today. Continues paranoid and delusional. Argumentative today. Refusing to elevate legs on chair despite swelling; pt stated, I don't want to elevate my legs because I don't want to . Per nursing, last BM was 05/06/24. Pt continues to decline to go into room or bathroom even though he understands this will allow him to challenge his anxiety/paranoid withl the hopes of being discharges home. Patient stated, I'm not going to play with fate by going into the bathroom. All of you providers are compromising my safety . pt denies side effects from medication changes. Risperidal decreased to 2mg PO bedtime. Haldol increased to 10mg PO bedtime; pt aware. Encouraged to take Ativan to help with increased anxiety. 05/10: Patient observed lingering around nurses station; was asked by nursing to move multiple times for patient confidentiality. He continues anxious, paranoid and grandiose; patient stated, I told you I am a targeted person. I am a [place]. I do not understand why you would put me in dangers way and want me to use the bathroom . Patient continues to refuse to elevate legs; when asked why; patient stated, I want to see what happens ; patient educated regarding importance of elevating legs to decrease swelling. He was seen by hospitalist; please see note. Continue current treatment plan. 05/11: Patient continues similar to yesterday; anxious, paranoid, delusional, grandiose. Refusing leg care, elevate legs, lasix, teds; despite education from T/W and nursing. Per RN, pt had bowel movement but would not sit on commode, instead he removed bucket from commode and placed it on the floor in the bedroom door threshold and defecated while slightly bending at the knees. When done, pt went to pull up pants but was suggested to wipe self from RN and agreed to do so but would not wash hands afterwards. When T/W asked patient why he would not sit on commode; pt stated, you know my situation . DC risperidal. Increase Haldol to 15mg PO bedtime;pt aware. 05/12:anxious, paranoid, delusional, grandiose. Refusing leg care, elevate legs, lasix, teds; continued to be educated of importance. Pt stated, I'm not elevating my legs because they are not umcomfortable right now and I won't take the Lasix because I'm worried about losing too much water in my body. I won't take it . Continues to linger around nurses station; was asked by nursing to move away d/t pt confidentiality but would only take a step away for a short period before returning. T/W spoke to patient's mother, Chio, regarding treatment plan. 05/13: Patient is calmer today. Not argumentative. Patient reports he is considering taking a benzodiazapine to help with his anxiety. Continues to refuse leg care, elevate legs, lasix, teds; continued to be educated of importance. Continue current tx plan. 05/14 Patient remains with same presentation, standing in the milieu. Staff reports that patient is in the milieu day and night and does not go to his room. Facility Maintenance Manager asked how he feels on the Haldol and patient says he is feeling cloudy and less clear minded. Discussed head stockings and patient said that he wanted to see how his legs did for a few days off of the test stockings but seem to understand the purpose for them and said he would put them back on eventually. 05/16: Keeping to self. anxious. paranoid. grandiose. delusional. Pt continues to believe he is a royal and someone can try to kill me while I'm in the rooms . Increase haldol to 20mg PO bedtime;pt aware. refusing to elevate legs, teds, leg care. T/W spoke with mother, Chio, regarding medication change. 05/17: Presents similar to days prior. Continues anxious, paranoid, grandiose, delusional. He reports increased anxiety but declines to take anti-anxiety medication. Continues to decline leg care or elevate legs; continues to be educated regarding importance of treatment. Pt focused on discharged; does not believe his behaviors or thoughts are impaired. per nursing, had BM yesterday while standing over commode bucket. Continue current tx plan. Patient educated on: diagnosis, medication risk/benefits and therapeutic strategies Reason for continued inpatient stay Substantial Risk for: med/psych decompensation Time Spent With Patient Time: Total time managing care of this patient today _20___ minutes.
[2024-05-17] MEDS: ALPRAZolam 0.5 MG TABLET PO (15:29)
[2024-05-17 20:00] VITALS: BP 103/67; PULSE 86; RESP 16; TEMP 37.1; O2SAT 98
[2024-05-17] MEDS: Haloperidol Lactate Oral Conc 10 MG/5 ML ORAL.CONC 20 MG PO (22:03)
[2024-05-18 08:00] VITALS: RESP 18
--- NOTE | 2024-05-18 09:31 | HO.PSYCHPN ---
Subjective Subjective Date of Service: 05/18/24 Reason For Visit: Schizophrenia Subjective Notes: Section 8 Interim History: Presents similar to days prior. Continues anxious, paranoid, grandiose, delusional. Continues to decline leg care or elevate legs; will continue to encourage patient to allow leg care, wear teds and elevate legs. Pt agreed to take Xanax 0.5mg PO yesterday to help with his anxiety; however he was not willing to enter room or bathroom d/t continued fear of being killed . Medication Compliance: Intermittent Side effects from medications: No Attending Groups: No Review of Systems Constitutional: Reports as per HPI Eyes: Reports as per HPI Reports as per HPI Cardiovascular: Reports as per HPI Respiratory: Reports as per HPI Gastrointestinal: Reports as per HPI Genitourinary: Reports as per HPI Musculoskeletal: Reports as per HPI Skin/Breast: Reports as per HPI Reports as per HPI Psychiatric: Reports as per HPI Endocrine: Reports as per HPI Hematologic/Lymphatic: Reports as per HPI Allergic/Immunologic: Reports as per HPI Mental Status Exam Mental Status Exam Narrative: Pt is alert and oriented; behavior is calm; dressed in hospital attire; malodorous, disheveled; mood is described as anxious; affect mostly blunted; eye contact appropriate; Speech is normal rate, volume and not pressured; thought content with paranoid ideation; grandiose. denies SI/HI. Insight and judgment are poor. Diagnostics Vital Signs (24Hr): Vital Signs - 24 hr 05/17/24 20:00 05/18/24 08:00 Temperature 98.7 F Pulse Rate 86 Respiratory Rate 16 18 Blood Pressure 103/67 Pulse Oximetry 98 Oxygen Delivery Method Room Air BMI result Body Mass Index 28.5 Labs 04/20/24 08:23 04/20/24 08:23 Imaging Radiology Impressions: ITS Impressions KUB X-Ray 04/25/24 14:00 IMPRESSION: Large stool burden overall. Electronically signed by: Corin Escoto DO 04/25/2024 07:31 PM [facility] [place] Medications Current Medications Acetaminophen (Acetaminophen 325 Mg Tablet) 650 mg PO Q6H PRN PRN Reason: Headache/Pain Mild Scale (1-3) Al Hydroxide/Mg Hydroxide (Magnesium Hydrox/Alum Hydrox 30 Ml Oral.Susp) 30 ml PO Q6H PRN PRN Reason: Heartburn/Nausea Alprazolam (Alprazolam 0.5 Mg Tablet) 0.5 mg PO BID PRN PRN Reason: Anxiety Benztropine Mesylate (Benztropine Mesylate 1 Mg Tablet) 1 mg PO DAILY PRN PRN Reason: Extrapyramidal Effects Betamethasone Dipropion Augmented (Betamethasone Dip Aug 0.05% Cr 15 Gm Tube) 1 appl TOPICAL BID LENI; Protocol Last Admin: 05/18/24 09:07 Dose: Not Given Furosemide (Furosemide 20 Mg Tablet) 20 mg PO DAILY LENI; Protocol Last Admin: 05/18/24 09:07 Dose: Not Given Haloperidol Lactate (Haloperidol Lactate 5 Mg/Ml Vial) 5 mg IM DAILY PRN PRN Reason: Psychosis Haloperidol Lactate (Haloperidol Lactate Oral Conc 10 Mg/5 Ml Oral.Conc) 20 mg PO BEDTIME LENI Last Admin: 05/17/24 22:03 Dose: 20 mg Hydroxyzine HCl (Hydroxyzine Hcl 25 Mg Tablet) 25 mg PO Q6H PRN PRN Reason: Anxiety Lactic Acid (Ammonium Lactate 12 % Cream 140 Gm Tube) 1 appl TOPICAL BID PRN; Protocol PRN Reason: Dry, scaly skin Last Admin: 04/18/24 20:53 Dose: 1 appl Lactic Acid (Ammonium Lactate 12 % Lotion 226 Gm Bottle) 1 appl TOPICAL DAILY LENI; Protocol Last Admin: 05/18/24 09:07 Dose: Not Given Lactulose (Lactulose 20 Gm/30 Ml Solution) 40 gm PO BID LENI Last Admin: 05/18/24 09:07 Dose: Not Given Lorazepam (Lorazepam 0.5 Mg Tablet) 0.5 mg PO BEDTIME LENI Last Admin: 05/17/24 22:06 Dose: Not Given Magnesium Hydroxide (Milk Of Magnesia 30 Ml Oral.Susp) 30 ml PO DAILY PRN PRN Reason: Constipation Psyllium Hydrophilic Mucilloid (Psyllium Seed 3.7 Gm Packet) 3.7 gm PO DAILY LENI Last Admin: 05/18/24 09:07 Dose: Not Given Trazodone HCl (Trazodone Hcl 50 Mg Tablet) 50 mg PO BEDTIME MRX1 PRN PRN Reason: Insomnia Allergies Allergies Allergy/AdvReac Type Severity Reaction Status Date / Time Unable to Assess Allergy Verified 03/25/24 21:15 Assessment & Plan Assessment & Plan (1) Schizophrenia: Status: Acute Code(s): F20.9 - Schizophrenia, unspecified (2) Lower extremity edema: Status: Acute Code(s): R60.0 - Localized edema Plan 03/26: risperidone /. collateral from mother. clarify legal circumstance/rolando's order. 03/27: refusing meds, not leaving his chair. urinating in cup beneath blanket. requesting immediate discharge. continue to offer medication. clarify legal circumstance and ability to involuntarily administer medication. diamnod warning provided. 03/28: Sitting in chair in milieu. Per nursing, patient urinating in cups under blankets. Patient was notified that he must go to his room to use the toilet and can not urinate in common areas. Patient was able to walk down unit hallway with no assistance. Patient is requesting to have a wheelchair d/t being terrified of falling . Patient stated, I do not have any kind of condition. I am just worried about falling . Patient reports that he has not been eating much due to fear of being poisoned however, he would not elaborate as to who he believes is poisoning him. He reports at home he has been urinating in milk cartons and defecating in trash bags and having his mother dispose of these items. Patient agreed to take 1 mg of Risperdal PO; however, expressed paranoia towards RN about being a different medication/dosage despite being shown packaging. T/W obtained information from patient's mother, Chio; Chio reports patient has not been using the toilet for the past two years due to being afraid that snakes will get him and voices telling him the same. Chio reports, pt is also afraid of walking d/t fear of hitting his head. She reports patient has never been on antipsychotics and has only taken anti-anxiety medications for 3 weeks which patient discontinued. She denies history of inpatient psychiatric hospitalizations. She reports having guardianship due to patient being unable to care for self. 03/29: Observing pacing unit hallway. Keeping to self. Covering self with blanket. Per nursing, pt slept in chair in milieu for 5 hours last night. Refused medications last night and this morning. Pt reports he does not want to sleep in a bed d/t feeling more vulnerable when laying down . Patient reports he does not want to go into the bathroom because he is paranoid that something might happen in there or someone might be waiting for me in there . Pt's 3 day up 03/30/24; he is requesting to be discharged home. 03/30: Observed standing at nurses station throughout shift; not taking redirection from staff to please step away for pt confidentiality. Argumentative. 3 day up today; filed on; pt notified. Pt stated, you can't keep me here. I'm going to jose you and make your head spin 3 times! Your documents are not real! Refused Zyprexa. Per nursing, pt urinated in carton in unit hallway;continues to refuse utilizing bathroom. Per nursing, pt did not eat anything today. 03/31: Pacing in front of nurses station. disheveled, malodorous; encouraged to shower, however pt declined despite being offered shower chair and staff member to wait outside shower room if assistance is needed. Per nursing, pt urinated in cup and sensory room floor last evening. Pt continues to report paranoia regarding using bathroom; pt stated, I'm worried someone will be in the bathroom waiting for me because of who I am . When asked why he believes someone would want to hurt him; pt stated, I can't discuss that . denies SI/HI/VH/AH. He reports not eating d/t concerns that he may be poisoned by someone ; observed drinking water from water bottle. Pt offered Zyprexa PO per court ordered treatment plan; per nursing, pt initially refused then agreed to take. 04/01: Patient continues to stand or pace in front of nurses station. disheveled, malodorous; per nursing, pt urinated in trash in mileu last evening. T/W spoke to patient regarding using restroom on unit; pt continues to report concern that someone can try to kill me because of who I am and who my family is ; when asked why someone would hurt him. Pt stated, because we are well known in [place] and they may hurt me because of it ; pt unable to specify who they are. denies AH/VH. Pt was offered for staff member to examine restroom and stand outside to assure no one is waiting for him; however pt continues to decline. Patient stated, I feel like you guys are playing a psychotic game with me or that they are doing this for their entertainment . 04/02: Patient continues to present similar to days prior. He continues to report paranoia regarding using restroom, shower and eating. Pt stated, I urinated in the trash early in the morning ; he continues to state he will consider using restroom. Pt reports taking bites of breakfast this morning. denies any side effects from Zyprexa other than feeling tired; pt stated, I am feeling a bit calmer . Per nursing, pt slept in chair in [facility] for 7 hours last night. Will continue to build rapport. 04/03: Patient continues to report paranoia regarding using restroom, shower and eating. Pt was offered single room d/t continuous urinating in [facility]; pt declined. Pt stated, I don't think a single room would help. I'm still having the same thoughts . Pt reports he has increased his fluid intake with water, juice and milk; however he continues to report only take a few bites of food. 04/04: Discussed medications increases with pt which he refuses at this time. Focused on discharge, and where his belongings are being stored at this time. 04/05: Patient declined to meet with T/W in unit office; pt stated, I don't feel comfortable going into the office because I think someone would hurt me ; pt reassured no one would hurt him, however, he continued to decline. Met with pt in unit hallway. Patient reports he did not urinate yesterday; he was educated regarding medical complications that can occur with decreased intake of fluids and food. Pt stated, I know but it's not like I'm dying . Pt refused labs. Discussed various solutions of pt feeling safe to use restroom or shower. pt stated, I'm still worried someone is going to hurt me. I'm not sure who, but it's because I am along the lines of royalty and it's putting me in harms way if I use the bathroom, shower or eat . Pt reporting zyprexa is making him too tired ; plan to DC. start risperidal 1mg PO daily with plan to switch to PLAZA; discussed with pt. T/W spoke to patient's mother, Chio, who reports has not left the house in 2 years and has not bathed or used the restroom in a year. She expressed concern over his wellbeing of not drinking or eating. She plans on calling patient to encourage him increase fluid intake. 04/07: Pt continues similar to days prior. Pt reports he did not urinate yesterday. Refused labs again. Hearing was held today; Pt was commited. T/W informed pt of plan to increase risperidal. Pt to receive additional risperidal 1mg PO bedtime dose to night. Starting tomorrow, Increase: Risperidal 2mg PO bedtime. 04/08: Staying in common area, however, keeping to self. per nursing, pt urinated in multiple cups last evening in common area and declined to use restroom. Pt reports feeling frustrated about not being discharged ; T/W discussed plan with medications again. Pt requesting to be discharged home today; asking multiple staff. Pt continues to report paranoia regarding using toilet, shower, eating/drinking. Encouraged to allow labs. 04/10: No changes. Encourage ongoing med adherence especially for Risperdal. Also encourage elevating legs as per hospitalist evaluation on 04/06/2024. Ordering an extra large compression stockings. 04/11: Met with pt in unit office. Continues to stay in common areas. paranoid. Pt discussed paranoia regarding eating; pt stated, how do you know someone isn't trying to poison me? People in this hospital. Per nursing, ate 10% of one meal yesterday and 25% of one meal today, has not eaten anything otherwise. Patient continues to refuse labs; shower (pt reports he has not bathed himself since admission and refusing to change clothes). Declining to use bathroom. perseverating on discharge to go back home where I can continue doing these things and be more comfortable . Continues similar to days prior; ? possible cheeking, will switch to risperidal liquid. Increase dose to Risperidal 3mg PO bedtime. Wound consult ordered for bilateral legs 04/12: Met with pt in unit office. Continues to stay in common areas; declining to go into assigned room for any reason. He continues paranoid, anxious, fearful. Pt argumentative and requesting discharge since he has been able to meet with T/W in the unit office for the past 2 days. Discussed that pt does not allow for the door to be closed, continues with paranoia stating my safety is a concern if the door is closed . Declining bathroom and shower. Discussed change of medication to liquid d/t possible cheeking. 04/13: Pt continues paranoid, anxious, fearful. T/W and vp digital marketing social media and crm, Sabi, encouraged pt to walk into his room; lights were turned on to show no one was in the room and it was safe; however, pt continues to make paranoid statements of someone waiting to hurt him. Pt reports he did not urinate yesterday; discussed the importance of drinking fluids and eating meals. Per nursing, pt ate 5% of breakfast yesterday and declined lunch and dinner. Continue current tx plan. 04/14: Pt continues similar to days prior. Refusing to cross threshold into any room other than side office. Continues concerned that someone may hurt him if he goes into a room even if staff are with him. Per nursing, pt has not eaten or drank fluids today. He did urinate in trash can in the [facility] and continues to refuse using restroom; despite having access to multiple bathrooms. Continue current tx plan. 04/15: T/W and RN attempting to reassure patient of his safety to be able to cross threshold into his room. Continues to believe someone may be hiding in the room to hurt him. Argumentative, attempting to change topic when asked questions about challenging his anxiety and paranoia. Per nursing, pt continues to have poor intake. Pt reports he did not urinate yesterday 04/17: No changes 04/18: Met with Dr. Lorenzana present. Pt continues to decline to go into bedroom or restroom; was willing to meet in side office with door open. He continues to discuss his anxiety and paranoia regarding being attacked by someone or snakes . Pt states he does not believe to have a mental illness ; requesting to be discharged home. Pt re-educated on goal of treatment. 04/19: Pt continues similar to days prior. Patient was given single room however pt continues to decline to enter room despite not having a room mate. He reports not urinating or having a bowel movement yesterday or today. Risperidal increased 4mg PO bedtime; pt aware. Labs ordered for tomorrow for monitoring of medical status while being treated with antipsychotics medications; informed consent obtained from guardian and patient is aware that informed consent was obtained. 04/20: pt continues to decline to enter his single room. Chair was placed between hallway and bedroom threshold; pt stated, I'm not going in there because I'm worried I might if I sit down . Continues with paranoid delusions. denies any side effects from increase in risperidal. encouraged to take Ativan to help with anxiety. Declined to go into his room to receive leg treatment. Declined to use restroom. 04/21: Continues with paranoid delusions; pt stated, I won't go in there because someone wants to kill me. I don't know who exactly. I know this from the narrative I hear and the symbolism I see on TV and commercial trucks . Declined to go into his room to receive leg treatment. Declined to use restroom. Eating/drinking minimally. Spoke with patient's mother and guardian, Chio, via phone. Reviewed current treatment plan and labs. 04/22: Patient continues similar to days prior. Continues with paranoid delusions; Declined to go into his room to receive leg treatment. Declined to use restroom. Eating/drinking minimally. Patient encouraged to challenge anxiety. 04/23 continue tx. 04/24 continue tx. increase risperidone to 6mg po qhs. 04/25: Continues paranoid and delusional. Refusing to go into room; pt stated, If I go in there I can be hurt with or without knowing ; when asked to elaborate, pt stated, they might hurt me, without me knowing I was hurt . Declining to use bathroom; observed to have distended abdomen, KUB ordered, pt was willing to have imaging done; awaiting results. Pt was willing to go into treatment room to use bath wipes and clean himself with RN present. Ordered Lactulose to assist with constipation; pt states he will consider taking this. 04/26: Continues paranoid and delusional. Refusing to go into room, bathroom or use commode in room; urinated in unit hallway. Refused Lactulose this morning despite encouragement. Continue current tx plan. 04/27: Continue current regimen and plans 04/28/24 Cont risp monitor response cont behavioral plan for helping re ability to lie down to enter a room encourage inc liquids latulose enema if needed 04/29: Keeping to self. urinated in trash bin in unit office. continues to refuse to go into bedroom or bathroom. offered commode and staff bathroom in unit hallway; however continues to decline. paranoid, delusional. Refusing lactulose despite education and no BM. 04/30: Continue current management and treatment plan. 05/01: Continue current management and treatment plan. 05/02: Keeping to self. Continues to refuse to enter bed room. He continues to report paranoia of someone trying to kill me if I go into the room ; pt encouraged to take one step over threshold, however, declined to do so; discussed increase in risperdal. Risperidal increased to 8mg PO bedtime. Patient reports having a bowel movement over the weekend but states he had the commode moved to door threshold so that his legs were outside the room. Patient reports he feels my paranoia is less but is unable to give examples of what has changed. Patient reports cold symptoms; allowed for covid/flu/rsv swab, which are negative; declined medication for cold symptoms. 05/03: Continues similar to days prior. paranoid. delusional. reviewed treatment plan with patient. continues to not use restroom, or enter room. continue current tx plan. 05/04/24- ongoing bizarre behavior and refusal to do ADLs independently 05/05: Pt states he feels something from med focused on discharge refusing to engage push againt behaviors that are self destructive 05/06: Lingering around nurses station today. Continues to refuse to enter bedroom or bathroom. Pt reports worry he may be killed if entering room; states he saw messages through the TV on [employer], but would not go into detail. Discussed changing medication to Haldol d/t Risperidal being ineffective in paranoid delusions. Decrease Risperidal to 4mg PO bedtime. Start: Haldol 5mg PO bedtime Ativan 0.5mg PO bedtime T/W and Dr. Lorenzana spoke to patients mother, Chio, discussed medications and treatment plan. Chio is aware of medication changes. 05/09: Continues to linger around nurses station today. Continues paranoid and delusional. Argumentative today. Refusing to elevate legs on chair despite swelling; pt stated, I don't want to elevate my legs because I don't want to . Per nursing, last BM was 05/06/24. Pt continues to decline to go into room or bathroom even though he understands this will allow him to challenge his anxiety/paranoid withl the hopes of being discharges home. Patient stated, I'm not going to play with fate by going into the bathroom. All of you providers are compromising my safety . pt denies side effects from medication changes. Risperidal decreased to 2mg PO bedtime. Haldol increased to 10mg PO bedtime; pt aware. Encouraged to take Ativan to help with increased anxiety. 05/10: Patient observed lingering around nurses station; was asked by nursing to move multiple times for patient confidentiality. He continues anxious, paranoid and grandiose; patient stated, I told you I am a targeted person. I am a [place]. I do not understand why you would put me in dangers way and want me to use the bathroom . Patient continues to refuse to elevate legs; when asked why; patient stated, I want to see what happens ; patient educated regarding importance of elevating legs to decrease swelling. He was seen by hospitalist; please see note. Continue current treatment plan. 05/11: Patient continues similar to yesterday; anxious, paranoid, delusional, grandiose. Refusing leg care, elevate legs, lasix, teds; despite education from T/W and nursing. Per RN, pt had bowel movement but would not sit on commode, instead he removed bucket from commode and placed it on the floor in the bedroom door threshold and defecated while slightly bending at the knees. When done, pt went to pull up pants but was suggested to wipe self from RN and agreed to do so but would not wash hands afterwards. When T/W asked patient why he would not sit on commode; pt stated, you know my situation . DC risperidal. Increase Haldol to 15mg PO bedtime;pt aware. 05/12:anxious, paranoid, delusional, grandiose. Refusing leg care, elevate legs, lasix, teds; continued to be educated of importance. Pt stated, I'm not elevating my legs because they are not umcomfortable right now and I won't take the Lasix because I'm worried about losing too much water in my body. I won't take it . Continues to linger around nurses station; was asked by nursing to move away d/t pt confidentiality but would only take a step away for a short period before returning. T/W spoke to patient's mother, Chio, regarding treatment plan. 05/13: Patient is calmer today. Not argumentative. Patient reports he is considering taking a benzodiazapine to help with his anxiety. Continues to refuse leg care, elevate legs, lasix, teds; continued to be educated of importance. Continue current tx plan. 05/14 Patient remains with same presentation, standing in the milieu. Staff reports that patient is in the milieu day and night and does not go to his room. Computational Mathematician asked how he feels on the Haldol and patient says he is feeling cloudy and less clear minded. Discussed head stockings and patient said that he wanted to see how his legs did for a few days off of the test stockings but seem to understand the purpose for them and said he would put them back on eventually. 05/16: Keeping to self. anxious. paranoid. grandiose. delusional. Pt continues to believe he is a royal and someone can try to kill me while I'm in the rooms . Increase haldol to 20mg PO bedtime;pt aware. refusing to elevate legs, teds, leg care. T/W spoke with mother, Chio, regarding medication change. 05/17: Presents similar to days prior. Continues anxious, paranoid, grandiose, delusional. He reports increased anxiety but declines to take anti-anxiety medication. Continues to decline leg care or elevate legs; continues to be educated regarding importance of treatment. Pt focused on discharged; does not believe his behaviors or thoughts are impaired. per nursing, had BM yesterday while standing over commode bucket. Continue current tx plan. 05/18: Continues anxious, paranoid, grandiose, delusional. Continues to decline leg care or elevate legs; will continue to encourage patient to allow leg care, wear teds and elevate legs. Pt agreed to take Xanax 0.5mg PO yesterday to help with his anxiety; however he was not willing to enter room or bathroom d/t continued fear of being killed . continue tx plan. Patient educated on: diagnosis, medication risk/benefits, therapeutic strategies and medical condition Reason for continued inpatient stay Substantial Risk for: med/psych decompensation Time Spent With Patient Time: Total time managing care of this patient today _20___ minutes.
[2024-05-18 20:00] VITALS: BP 97/54; PULSE 73; TEMP 37.3; O2SAT 100
[2024-05-18] MEDS: Haloperidol Lactate Oral Conc 10 MG/5 ML ORAL.CONC 20 MG PO (21:00)
--- NOTE | 2024-05-19 09:47 | HO.PSYCHPN ---
Subjective Subjective Date of Service: 05/19/24 Reason For Visit: Schizophrenia Subjective Notes: Section 8 Interim History: Patient continues anxious, paranoid, grandiose, delusional. Continues to decline leg care or elevate legs; pt initially agreed but when RN approached pt, he declined to enter treatment room. Did not want to take anti-anxiety medication. He was willing to step fully into his bedroom with T/W for around 10 seconds and quickly stepped out; which is improvement. Haldol increased to 25mg PO bedtime; encouraged to take cogentin but declined. Medication Compliance: Intermittent Side effects from medications: No Attending Groups: No Review of Systems Constitutional: Reports as per HPI Eyes: Reports as per HPI Reports as per HPI Cardiovascular: Reports as per HPI Respiratory: Reports as per HPI Gastrointestinal: Reports as per HPI Genitourinary: Reports as per HPI Musculoskeletal: Reports as per HPI Skin/Breast: Reports as per HPI Reports as per HPI Psychiatric: Reports as per HPI Endocrine: Reports as per HPI Hematologic/Lymphatic: Reports as per HPI Allergic/Immunologic: Reports as per HPI Mental Status Exam Mental Status Exam Narrative: Pt is alert and oriented; behavior is calm; dressed in hospital attire; malodorous, disheveled; mood is described as anxious; affect mostly blunted; eye contact appropriate; Speech is normal rate, volume and not pressured; thought content with paranoid ideation; grandiose. denies SI/HI. Insight and judgment are poor. Diagnostics Vital Signs (24Hr): Vital Signs - 24 hr 05/18/24 20:00 Temperature 99.1 F Pulse Rate 73 Blood Pressure 97/54 L Pulse Oximetry 100 Oxygen Delivery Method Room Air BMI result Body Mass Index 28.5 Labs 04/20/24 08:23 04/20/24 08:23 Imaging Radiology Impressions: ITS Impressions KUB X-Ray 04/25/24 14:00 IMPRESSION: Large stool burden overall. Electronically signed by: Corin Escoto DO 04/25/2024 07:31 PM [facility] Medications Medications Current Medications Acetaminophen (Acetaminophen 325 Mg Tablet) 650 mg PO Q6H PRN PRN Reason: Headache/Pain Mild Scale (1-3) Al Hydroxide/Mg Hydroxide (Magnesium Hydrox/Alum Hydrox 30 Ml Oral.Susp) 30 ml PO Q6H PRN PRN Reason: Heartburn/Nausea Alprazolam (Alprazolam 0.5 Mg Tablet) 0.5 mg PO BID PRN PRN Reason: Anxiety Benztropine Mesylate (Benztropine Mesylate 1 Mg Tablet) 1 mg PO DAILY PRN PRN Reason: Extrapyramidal Effects Betamethasone Dipropion Augmented (Betamethasone Dip Aug 0.05% Cr 15 Gm Tube) 1 appl TOPICAL BID LENI; Protocol Last Admin: 05/18/24 21:28 Dose: Not Given Furosemide (Furosemide 20 Mg Tablet) 20 mg PO DAILY LENI; Protocol Last Admin: 05/18/24 09:07 Dose: Not Given Haloperidol Lactate (Haloperidol Lactate 5 Mg/Ml Vial) 5 mg IM DAILY PRN PRN Reason: Psychosis Haloperidol Lactate (Haloperidol Lactate Oral Conc 10 Mg/5 Ml Oral.Conc) 20 mg PO BEDTIME LENI Last Admin: 05/18/24 21:00 Dose: 20 mg Hydroxyzine HCl (Hydroxyzine Hcl 25 Mg Tablet) 25 mg PO Q6H PRN PRN Reason: Anxiety Lactic Acid (Ammonium Lactate 12 % Cream 140 Gm Tube) 1 appl TOPICAL BID PRN; Protocol PRN Reason: Dry, scaly skin Last Admin: 04/18/24 20:53 Dose: 1 appl Lactic Acid (Ammonium Lactate 12 % Lotion 226 Gm Bottle) 1 appl TOPICAL DAILY LENI; Protocol Last Admin: 05/18/24 09:07 Dose: Not Given Lactulose (Lactulose 20 Gm/30 Ml Solution) 40 gm PO BID LENI Last Admin: 05/18/24 21:28 Dose: Not Given Lorazepam (Lorazepam 0.5 Mg Tablet) 0.5 mg PO BEDTIME LENI Last Admin: 05/18/24 21:28 Dose: Not Given Magnesium Hydroxide (Milk Of Magnesia 30 Ml Oral.Susp) 30 ml PO DAILY PRN PRN Reason: Constipation Psyllium Hydrophilic Mucilloid (Psyllium Seed 3.7 Gm Packet) 3.7 gm PO DAILY LENI Last Admin: 05/18/24 09:07 Dose: Not Given Trazodone HCl (Trazodone Hcl 50 Mg Tablet) 50 mg PO BEDTIME MRX1 PRN PRN Reason: Insomnia Allergies Allergies Allergy/AdvReac Type Severity Reaction Status Date / Time Unable to Assess Allergy Verified 03/25/24 21:15 Assessment & Plan Assessment & Plan (1) Schizophrenia: Status: Acute Code(s): F20.9 - Schizophrenia, unspecified (2) Lower extremity edema: Status: Acute Code(s): R60.0 - Localized edema Plan 03/26: risperidone /. collateral from mother. clarify legal circumstance/rolando's order. 03/27: refusing meds, not leaving his chair. urinating in cup beneath blanket. requesting immediate discharge. continue to offer medication. clarify legal circumstance and ability to involuntarily administer medication. diamond warning provided. 03/28: Sitting in chair in milieu. Per nursing, patient urinating in cups under blankets. Patient was notified that he must go to his room to use the toilet and can not urinate in common areas. Patient was able to walk down unit hallway with no assistance. Patient is requesting to have a wheelchair d/t being terrified of falling . Patient stated, I do not have any kind of condition. I am just worried about falling . Patient reports that he has not been eating much due to fear of being poisoned however, he would not elaborate as to who he believes is poisoning him. He reports at home he has been urinating in milk cartons and defecating in trash bags and having his mother dispose of these items. Patient agreed to take 1 mg of Risperdal PO; however, expressed paranoia towards RN about being a different medication/dosage despite being shown packaging. T/W obtained information from patient's mother, Chio; Chio reports patient has not been using the toilet for the past two years due to being afraid that snakes will get him and voices telling him the same. Chio reports, pt is also afraid of walking d/t fear of hitting his head. She reports patient has never been on antipsychotics and has only taken anti-anxiety medications for 3 weeks which patient discontinued. She denies history of inpatient psychiatric hospitalizations. She reports having guardianship due to patient being unable to care for self. 03/29: Observing pacing unit hallway. Keeping to self. Covering self with blanket. Per nursing, pt slept in chair in milieu for 5 hours last night. Refused medications last night and this morning. Pt reports he does not want to sleep in a bed d/t feeling more vulnerable when laying down . Patient reports he does not want to go into the bathroom because he is paranoid that something might happen in there or someone might be waiting for me in there . Pt's 3 day up 03/30/24; he is requesting to be discharged home. 03/30: Observed standing at nurses station throughout shift; not taking redirection from staff to please step away for pt confidentiality. Argumentative. 3 day up today; filed on; pt notified. Pt stated, you can't keep me here. I'm going to jose you and make your head spin 3 times! Your documents are not real! Refused Zyprexa. Per nursing, pt urinated in carton in unit hallway;continues to refuse utilizing bathroom. Per nursing, pt did not eat anything today. 03/31: Pacing in front of nurses station. disheveled, malodorous; encouraged to shower, however pt declined despite being offered shower chair and staff member to wait outside shower room if assistance is needed. Per nursing, pt urinated in cup and sensory room floor last evening. Pt continues to report paranoia regarding using bathroom; pt stated, I'm worried someone will be in the bathroom waiting for me because of who I am . When asked why he believes someone would want to hurt him; pt stated, I can't discuss that . denies SI/HI/VH/AH. He reports not eating d/t concerns that he may be poisoned by someone ; observed drinking water from water bottle. Pt offered Zyprexa PO per court ordered treatment plan; per nursing, pt initially refused then agreed to take. 04/01: Patient continues to stand or pace in front of nurses station. disheveled, malodorous; per nursing, pt urinated in trash in mileu last evening. T/W spoke to patient regarding using restroom on unit; pt continues to report concern that someone can try to kill me because of who I am and who my family is ; when asked why someone would hurt him. Pt stated, because we are well known in [place] and they may hurt me because of it ; pt unable to specify who they are. denies AH/VH. Pt was offered for staff member to examine restroom and stand outside to assure no one is waiting for him; however pt continues to decline. Patient stated, I feel like you guys are playing a psychotic game with me or that they are doing this for their entertainment . 04/02: Patient continues to present similar to days prior. He continues to report paranoia regarding using restroom, shower and eating. Pt stated, I urinated in the trash early in the morning ; he continues to state he will consider using restroom. Pt reports taking bites of breakfast this morning. denies any side effects from Zyprexa other than feeling tired; pt stated, I am feeling a bit calmer . Per nursing, [facility] night. Will continue to build rapport. 04/03: Patient continues to report paranoia regarding using restroom, shower and eating. Pt was offered single room d/t continuous urinating in [facility]; pt declined. Pt stated, I don't think a single room would help. I'm still having the same thoughts . Pt reports he has increased his fluid intake with water, juice and milk; however he continues to report only take a few bites of food. 04/04: Discussed medications increases with pt which he refuses at this time. Focused on discharge, and where his belongings are being stored at this time. 04/05: Patient declined to meet with T/W in unit office; pt stated, I don't feel comfortable going into the office because I think someone would hurt me ; pt reassured no one would hurt him, however, he continued to decline. Met with pt in unit hallway. Patient reports he did not urinate yesterday; he was educated regarding medical complications that can occur with decreased intake of fluids and food. Pt stated, I know but it's not like I'm dying . Pt refused labs. Discussed various solutions of pt feeling safe to use restroom or shower. pt stated, I'm still worried someone is going to hurt me. I'm not sure who, but it's because I am along the lines of royalty and it's putting me in harms way if I use the bathroom, shower or eat . Pt reporting zyprexa is making him too tired ; plan to DC. start risperidal 1mg PO daily with plan to switch to PLAZA; discussed with pt. T/W spoke to patient's mother, Chio, who reports has not left the house in 2 years and has not bathed or used the restroom in a year. She expressed concern over his wellbeing of not drinking or eating. She plans on calling patient to encourage him increase fluid intake. 04/07: Pt continues similar to days prior. Pt reports he did not urinate yesterday. Refused labs again. Hearing was held today; Pt was commited. T/W informed pt of plan to increase risperidal. Pt to receive additional risperidal 1mg PO bedtime dose to night. Starting tomorrow, Increase: Risperidal 2mg PO bedtime. 04/08: Staying in common area, however, keeping to self. per nursing, pt urinated in multiple cups last evening in common area and declined to use restroom. Pt reports feeling frustrated about not being discharged ; T/W discussed plan with medications again. Pt requesting to be discharged home today; asking multiple staff. Pt continues to report paranoia regarding using toilet, shower, eating/drinking. Encouraged to allow labs. 04/10: No changes. Encourage ongoing med adherence especially for Risperdal. Also encourage elevating legs as per hospitalist evaluation on 04/06/2024. Ordering an extra large compression stockings. 04/11: Met with pt in unit office. Continues to stay in common areas. paranoid. Pt discussed paranoia regarding eating; pt stated, how do you know someone isn't trying to poison me? People in this hospital. Per nursing, ate 10% of one meal yesterday and 25% of one meal today, has not eaten anything otherwise. Patient continues to refuse labs; shower (pt reports he has not bathed himself since admission and refusing to change clothes). Declining to use bathroom. perseverating on discharge to go back home where I can continue doing these things and be more comfortable . Continues similar to days prior; ? possible cheeking, will switch to risperidal liquid. Increase dose to Risperidal 3mg PO bedtime. Wound consult ordered for bilateral legs 04/12: Met with pt in unit office. Continues to stay in common areas; declining to go into assigned room for any reason. He continues paranoid, anxious, fearful. Pt argumentative and requesting discharge since he has been able to meet with T/W in the unit office for the past 2 days. Discussed that pt does not allow for the door to be closed, continues with paranoia stating my safety is a concern if the door is closed . Declining bathroom and shower. Discussed change of medication to liquid d/t possible cheeking. 04/13: Pt continues paranoid, anxious, fearful. T/W and psychosocial rehabilitation counselor, Sabi, encouraged pt to walk into his room; lights were turned on to show no one was in the room and it was safe; however, pt continues to make paranoid statements of someone waiting to hurt him. Pt reports he did not urinate yesterday; discussed the importance of drinking fluids and eating meals. Per nursing, pt ate 5% of breakfast yesterday and declined lunch and dinner. Continue current tx plan. 04/14: Pt continues similar to days prior. Refusing to cross threshold into any room other than side office. Continues concerned that someone may hurt him if he goes into a room even if staff are with him. Per nursing, pt has not eaten or drank fluids today. He did urinate [facility] the [facility] and continues to refuse using restroom; despite having access to multiple bathrooms. Continue current tx plan. 04/15: T/W and RN attempting to reassure patient of his safety to be able to cross threshold into his room. Continues to believe someone may be hiding in the room to hurt him. Argumentative, attempting to change topic when asked questions about challenging his anxiety and paranoia. Per nursing, pt continues to have poor intake. Pt reports he did not urinate yesterday 04/17: No changes 04/18: Met with Dr. Lorenzana present. Pt continues to decline to go into bedroom or restroom; was willing to meet in side office with door open. He continues to discuss his anxiety and paranoia regarding being attacked by someone or snakes . Pt states he does not believe to have a mental illness ; requesting to be discharged home. Pt re-educated on goal of treatment. 04/19: Pt continues similar to days prior. Patient was given single room however pt continues to decline to enter room despite not having a room mate. He reports not urinating or having a bowel movement yesterday or today. Risperidal increased 4mg PO bedtime; pt aware. Labs ordered for tomorrow for monitoring of medical status while being treated with antipsychotics medications; informed consent obtained from guardian and patient is aware that informed consent was obtained. 04/20: pt continues to decline to enter his single room. Chair was placed between hallway and bedroom threshold; pt stated, I'm not going in there because I'm worried I might if I sit down . Continues with paranoid delusions. denies any side effects from increase in risperidal. encouraged to take Ativan to help with anxiety. Declined to go into his room to receive leg treatment. Declined to use restroom. 04/21: Continues with paranoid delusions; pt stated, I won't go in there because someone wants to kill me. I don't know who exactly. I know this from the narrative I hear and the symbolism I see on TV and commercial trucks . Declined to go into his room to receive leg treatment. Declined to use restroom. Eating/drinking minimally. Spoke with patient's mother and guardian, Chio, via phone. Reviewed current treatment plan and labs. 04/22: Patient continues similar to days prior. Continues with paranoid delusions; Declined to go into his room to receive leg treatment. Declined to use restroom. Eating/drinking minimally. Patient encouraged to challenge anxiety. 04/23 continue tx. 04/24 continue tx. increase risperidone to 6mg po qhs. 04/25: Continues paranoid and delusional. Refusing to go into room; pt stated, If I go in there I can be hurt with or without knowing ; when asked to elaborate, pt stated, they might hurt me, without me knowing I was hurt . Declining to use bathroom; observed to have distended abdomen, KUB ordered, pt was willing to have imaging done; awaiting results. Pt was willing to go into treatment room to use bath wipes and clean himself with RN present. Ordered Lactulose to assist with constipation; pt states he will consider taking this. 04/26: Continues paranoid and delusional. Refusing to go into room, bathroom or use commode in room; urinated in unit hallway. Refused Lactulose this morning despite encouragement. Continue current tx plan. 04/27: Continue current regimen and plans 04/28/24 Cont risp monitor response cont behavioral plan for helping re ability to lie down to enter a room encourage inc liquids latulose enema if needed 04/29: Keeping to self. urinated in trash bin in unit office. continues to refuse to go into bedroom or bathroom. offered commode and staff bathroom in unit hallway; however continues to decline. paranoid, delusional. Refusing lactulose despite education and no BM. 04/30: Continue current management and treatment plan. 05/01: Continue current management and treatment plan. 05/02: Keeping to self. Continues to refuse to enter bed room. He continues to report paranoia of someone trying to kill me if I go into the room ; pt encouraged to take one step over threshold, however, declined to do so; discussed increase in risperdal. Risperidal increased to 8mg PO bedtime. Patient reports having a bowel movement over the weekend but states he had the commode moved to door threshold so that his legs were outside the room. Patient reports he feels my paranoia is less but is unable to give examples of what has changed. Patient reports cold symptoms; allowed for covid/flu/rsv swab, which are negative; declined medication for cold symptoms. 05/03: Continues similar to days prior. paranoid. delusional. reviewed treatment plan with patient. continues to not use restroom, or enter room. continue current tx plan. 05/04/24- ongoing bizarre behavior and refusal to do ADLs independently 05/05: Pt states he feels something from med focused on discharge refusing to engage push againt behaviors that are self destructive 05/06: Lingering around nurses station today. Continues to refuse to enter bedroom or bathroom. Pt reports worry he may be killed if entering room; states he saw messages through the TV on [employer], but would not go into detail. Discussed changing medication to Haldol d/t Risperidal being ineffective in paranoid delusions. Decrease Risperidal to 4mg PO bedtime. Start: Haldol 5mg PO bedtime Ativan 0.5mg PO bedtime T/W and Dr. Lorenzana spoke to patients mother, Chio, discussed medications and treatment plan. Chio is aware of medication changes. 05/09: Continues to linger around nurses station today. Continues paranoid and delusional. Argumentative today. Refusing to elevate legs on chair despite swelling; pt stated, I don't want to elevate my legs because I don't want to . Per nursing, last BM was 05/06/24. Pt continues to decline to go into room or bathroom even though he understands this will allow him to challenge his anxiety/paranoid withl the hopes of being discharges home. Patient stated, I'm not going to play with fate by going into the bathroom. All of you providers are compromising my safety . pt denies side effects from medication changes. Risperidal decreased to 2mg PO bedtime. Haldol increased to 10mg PO bedtime; pt aware. Encouraged to take Ativan to help with increased anxiety. 05/10: Patient observed lingering around nurses station; was asked by nursing to move multiple times for patient confidentiality. He continues anxious, paranoid and grandiose; patient stated, I told you I am a targeted person. I am a [place]. I do not understand why you would put me in dangers way and want me to use the bathroom . Patient continues to refuse to elevate legs; when asked why; patient stated, I want to see what happens ; patient educated regarding importance of elevating legs to decrease swelling. He was seen by hospitalist; please see note. Continue current treatment plan. 05/11: Patient continues similar to yesterday; anxious, paranoid, delusional, grandiose. Refusing leg care, elevate legs, lasix, teds; despite education from T/W and nursing. Per RN, pt had bowel movement but would not sit on commode, instead he removed bucket from commode and placed it on the floor in the bedroom door threshold and defecated while slightly bending at the knees. When done, pt went to pull up pants but was suggested to wipe self from RN and agreed to do so but would not wash hands afterwards. When T/W asked patient why he would not sit on commode; pt stated, you know my situation . DC risperidal. Increase Haldol to 15mg PO bedtime;pt aware. 05/12:anxious, paranoid, delusional, grandiose. Refusing leg care, elevate legs, lasix, teds; continued to be educated of importance. Pt stated, I'm not elevating my legs because they are not umcomfortable right now and I won't take the Lasix because I'm worried about losing too much water in my body. I won't take it . Continues to linger around nurses station; was asked by nursing to move away d/t pt confidentiality but would only take a step away for a short period before returning. T/W spoke to patient's mother, Chio, regarding treatment plan. 05/13: Patient is calmer today. Not argumentative. Patient reports he is considering taking a benzodiazapine to help with his anxiety. Continues to refuse leg care, elevate legs, lasix, teds; continued to be educated of importance. Continue current tx plan. 05/14 Patient remains with same presentation, standing in the milieu. Staff reports that patient is in the milieu day and night and does not go to his room. Industrial Technology Teacher asked how he feels on the Haldol and patient says he is feeling cloudy and less clear minded. Discussed head stockings and patient said that he wanted to see how his legs did for a few days off of the test stockings but seem to understand the purpose for them and said he would put them back on eventually. 05/16: Keeping to self. anxious. paranoid. grandiose. delusional. Pt continues to believe he is a royal and someone can try to kill me while I'm in the rooms . Increase haldol to 20mg PO bedtime;pt aware. refusing to elevate legs, teds, leg care. T/W spoke with mother, Chio, regarding medication change. 05/17: Presents similar to days prior. Continues anxious, paranoid, grandiose, delusional. He reports increased anxiety but declines to take anti-anxiety medication. Continues to decline leg care or elevate legs; continues to be educated regarding importance of treatment. Pt focused on discharged; does not believe his behaviors or thoughts are impaired. per nursing, had BM yesterday while standing over commode bucket. Continue current tx plan. 05/18: Continues anxious, paranoid, grandiose, delusional. Continues to decline leg care or elevate legs; will continue to encourage patient to allow leg care, wear teds and elevate legs. Pt agreed to take Xanax 0.5mg PO yesterday to help with his anxiety; however he was not willing to enter room or bathroom d/t continued fear of being killed . continue tx plan. 05/19: Patient continues anxious, paranoid, grandiose, delusional. Continues to decline leg care or elevate legs; pt initially agreed but when RN approached pt, he declined to enter treatment room. Did not want to take anti-anxiety medication. He was willing to step fully into his bedroom with T/W for around 10 seconds and quickly stepped out; which is improvement. Haldol increased to 25mg PO bedtime; encouraged to take cogentin but declined. Patient educated on: diagnosis, medication risk/benefits and therapeutic strategies Reason for continued inpatient stay Substantial Risk for: med/psych decompensation Time Spent With Patient Time: Total time managing care of this patient today _20___ minutes.
--- NOTE | 2024-05-19 15:53 | HO.WOUND ---
Wound Consult: Follow up Received message from direct care team nurse that patient was allowing soaks and now has open area to leg. Recommend continuing with lower leg elevation, topical cream application and a dressing to the open area of the leg. After topical steroid application recommend durafiber AG application followed by dry gauze. If patient refuses Durafiber AG may cover with dry gauze for drainage absorption. Elevation will remain arriaga to decrease in swelling. Details from previous assessment on 05/11/24: 38yr old?male admitted to [facility] [place] on 03/25/24 to the Adult [facility]al [facility] Unit - See progress notes and H&P for detailed history.? New wound consult placed for Bilateral Lower legs.? Patient mildly agreeable to assessment, patient was seen in the [facility] treatment room. The left leg was not able to be assessed as the pant leg was not able to move up his lower leg due to swelling. The right leg was minimally assessed he refused sock removal and limited physical assessment. He refused to sit in a chair for proper assessment. The leg was noted for significant swelling and red maroon pigmentation, worsening since last assessment in early April. He denies pain and neuropathy at this time. He allowed some palpation but very minimal. He did not want the thick scaling tissue touched. Chart review reveals he is resistant and refuses care interventions suggested. Patient was educated to the importance of the interventions. He reported refusal because he wanted off the unit and admission to the medical unit. He was educated the topical interventions would be the same - he said he would not be doing the interventions at this time. Multiple attempts and different ways of saying the same thing were attempted to aid in him allowing care and interventions to take place. He was asked by this medical technical writer what we could do to help him comply with these interventions he reported he would not allow the interventions while on the medical unit. The conversation continued to [place] around the same concern of getting off the unit. We talked of a variety of subjects including his fear of the room and bathroom and his level of constipation. TT with Susan Elias NP regarding the consultation detailed noted above. No new topical recommendations needed. Lower Leg elevation will have the biggest impact on the patients lower leg swelling. Detailed from previous assessment as follows: Bilateral Lower legs noted for red swollen lower legs, on both legs there are thick hyperkeratotic patches, yellow guzmán in color. The patch is lifting and will likely be easily removed however the patient refused me to remove given he felt it would worsen. We discussed the plaques trapping moisture such as sweat and oil beneath and creating an open wound on the skin. He reports he prefers to keep the scaling patch in place. We discussed elevating his lower legs periodically throughout the day and to lay down to sleep, as this will aid in the swelling reduction. He would benefit from compression therapy - discussed with staff to investigate if Edema wear stockings can be ordered for his use. He would be size medium to start and then would likely be able to transition down to size small. These can be obtained from the following website. [email or web address] See photo in chart. Bilateral Lower Legs Etiology: Significant swelling with Venous Dermatitis with hyperkeratotic plaque?? Wound Bed: no open wounds noted - there are lateral thick yellow plaques noted Drainage / Odor: None noted Edges: ? irregular Dianne wound: red firm swollen lower legs, +pp, denies neuropathy, No Induration, Fluctuance noted Pain: denies Goals of Treatment: ? Elevation and compression - continue with topical steroid ordered by provider and ammonium lactate cream / lotion per provider order. Recommendations: 1. Bilateral Lower Legs - Elevate lower legs at night and periodically throughout the day. Routine cleansing with soap and water (shower is best), pat dry. Apply topical steroid and Ammonium lactate per provider orders. If available: Edema Wear Compression Stockings ? Edema Wear compression garments should be applied first thing in the morning and may be removed at night when legs are elevated in bed.? Hand wash and hang dry.? Stockings should be worn from the base of the toes to just below the knee.? Fold over at end to prevent rolling.? They are disposable after about 2 weeks or regular use. Re-consult wound care Nurse for wound deterioration or wound changes.
[2024-05-19] MEDS: Ammonium Lactate 12 % Lotion 226 GM BOTTLE 1 APPL TOPICAL (16:10)
[2024-05-19] MEDS: Betamethasone Dip Aug 0.05% Cr 15 GM TUBE 1 APPL TOPICAL (16:18)
[2024-05-19 20:00] VITALS: BP 101/56; PULSE 75; TEMP 36.9; O2SAT 99
[2024-05-19] MEDS: Haloperidol Lactate Oral Conc 10 MG/5 ML ORAL.CONC 25 MG PO (20:35)
[2024-05-20 08:00] VITALS: RESP 18
--- NOTE | 2024-05-20 10:51 | HO.PSYCHPN ---
Subjective Subjective Reason For Visit: Schizophrenia Diagnostics Vital Signs (24Hr): Vital Signs - 24 hr 05/19/24 20:00 05/20/24 08:00 Temperature 98.5 F Pulse Rate 75 Respiratory Rate 18 Blood Pressure 101/56 L Pulse Oximetry 99 Oxygen Delivery Method Room Air BMI result Body Mass Index 28.5 Labs 04/20/24 08:23 04/20/24 08:23 Imaging Radiology Impressions: ITS Impressions KUB X-Ray 04/25/24 14:00 IMPRESSION: Large stool burden overall. Electronically signed by: Corin Escoto DO 04/25/2024 07:31 PM EST Medications Medications Current Medications Acetaminophen (Acetaminophen 325 Mg Tablet) 650 mg PO Q6H PRN PRN Reason: Headache/Pain Mild Scale (1-3) Al Hydroxide/Mg Hydroxide (Magnesium Hydrox/Alum Hydrox 30 Ml Oral.Susp) 30 ml PO Q6H PRN PRN Reason: Heartburn/Nausea Alprazolam (Alprazolam 0.5 Mg Tablet) 0.5 mg PO BID PRN PRN Reason: Anxiety Benztropine Mesylate (Benztropine Mesylate 1 Mg Tablet) 1 mg PO DAILY PRN PRN Reason: Extrapyramidal Effects Betamethasone Dipropion Augmented (Betamethasone Dip Aug 0.05% Cr 15 Gm Tube) 1 appl TOPICAL BID LENI; Protocol Last Admin: 05/20/24 09:46 Dose: Not Given Furosemide (Furosemide 20 Mg Tablet) 20 mg PO DAILY LENI; Protocol Last Admin: 05/20/24 09:46 Dose: Not Given Haloperidol Lactate (Haloperidol Lactate 5 Mg/Ml Vial) 5 mg IM DAILY PRN PRN Reason: Psychosis Haloperidol Lactate (Haloperidol Lactate Oral Conc 10 Mg/5 Ml Oral.Conc) 25 mg PO BEDTIME LENI Last Admin: 05/19/24 20:35 Dose: 25 mg Hydroxyzine HCl (Hydroxyzine Hcl 25 Mg Tablet) 25 mg PO Q6H PRN PRN Reason: Anxiety Lactic Acid (Ammonium Lactate 12 % Cream 140 Gm Tube) 1 appl TOPICAL BID PRN; Protocol PRN Reason: Dry, scaly skin Last Admin: 04/18/24 20:53 Dose: 1 appl Lactic Acid (Ammonium Lactate 12 % Lotion 226 Gm Bottle) 1 appl TOPICAL DAILY LENI; Protocol Last Admin: 05/20/24 09:46 Dose: Not Given Lactulose (Lactulose 20 Gm/30 Ml Solution) 40 gm PO BID [facility] Last Admin: 05/20/24 09:47 Dose: Not Given Lorazepam (Lorazepam 0.5 Mg Tablet) 0.5 mg PO BEDTIME [facility] Last Admin: 05/19/24 22:11 Dose: Not Given Magnesium Hydroxide (Milk Of Magnesia 30 Ml Oral.Susp) 30 ml PO DAILY PRN PRN Reason: Constipation Psyllium Hydrophilic Mucilloid (Psyllium Seed 3.7 Gm Packet) 3.7 gm PO DAILY [facility] Last Admin: 05/20/24 09:47 Dose: Not Given Trazodone HCl (Trazodone Hcl 50 Mg Tablet) 50 mg PO BEDTIME MRX1 PRN PRN Reason: Insomnia Allergies Allergies Allergy/AdvReac Type Severity Reaction Status Date / Time Unable to Assess Allergy Verified 03/25/24 21:15 Assessment & Plan Assessment & Plan (1) Schizophrenia: Status: Acute Code(s): F20.9 - Schizophrenia, unspecified (2) Lower extremity edema: Status: Acute Code(s): R60.0 - Localized edema Plan 03/26: risperidone 1/2. collateral from mother. clarify legal circumstance/rolando's order. 03/27: refusing meds, not leaving his chair. urinating in cup beneath blanket. requesting immediate discharge. continue to offer medication. clarify legal circumstance and ability to involuntarily administer medication. diamond warning provided. 03/28: Sitting in chair in milieu. Per nursing, patient urinating in cups under blankets. Patient was notified that he must go to his room to use the toilet and can not urinate in common areas. Patient was able to walk down unit hallway with no assistance. Patient is requesting to have a wheelchair d/t being terrified of falling . Patient stated, I do not have any kind of condition. I am just worried about falling . Patient reports that he has not been eating much due to fear of being poisoned however, he would not elaborate as to who he believes is poisoning him. He reports at home he has been urinating in milk cartons and defecating in trash bags and having his mother dispose of these items. Patient agreed to take 1 mg of Risperdal PO; however, expressed paranoia towards RN about being a different medication/dosage despite being shown packaging. T/W obtained information from patient's mother, Chio; Chio reports patient has not been using the toilet for the past two years due to being afraid that snakes will get him and voices telling him the same. Chio reports, pt is also afraid of walking d/t fear of hitting his head. She reports patient has never been on antipsychotics and has only taken anti-anxiety medications for 3 weeks which patient discontinued. She denies history of inpatient psychiatric hospitalizations. She reports having guardianship due to patient being unable to care for self. 03/29: Observing pacing unit hallway. Keeping to self. Covering self with blanket. Per nursing, pt slept in chair in milieu for 5 hours last night. Refused medications last night and this morning. Pt reports he does not want to sleep in a bed d/t feeling more vulnerable when laying down . Patient reports he does not want to go into the bathroom because he is paranoid that something might happen in there or someone might be waiting for me in there . Pt's 3 day up 03/30/24; he is requesting to be discharged home. 03/30: Observed standing at nurses station throughout shift; not taking redirection from staff to please step away for pt confidentiality. Argumentative. 3 day up today; filed on; pt notified. Pt stated, you can't keep me here. I'm going to jose you and make your head spin 3 times! Your documents are not real! Refused Zyprexa. Per nursing, pt urinated in carton in unit hallway;continues to refuse utilizing bathroom. Per nursing, pt did not eat anything today. 03/31: Pacing in front of nurses station. disheveled, malodorous; encouraged to shower, however pt declined despite being offered shower chair and staff member to wait outside shower room if assistance is needed. Per nursing, pt urinated in cup and sensory room floor last evening. Pt continues to report paranoia regarding using bathroom; pt stated, I'm worried someone will be in the bathroom waiting for me because of who I am . When asked why he believes someone would want to hurt him; pt stated, I can't discuss that . denies SI/HI/VH/AH. He reports not eating d/t concerns that he may be poisoned by someone ; observed drinking water from water bottle. Pt offered Zyprexa PO per court ordered treatment plan; per nursing, pt initially refused then agreed to take. 04/01: Patient continues to stand or pace in front of nurses station. disheveled, malodorous; per nursing, pt urinated in trash in [facility] last evening. T/W spoke to patient regarding using restroom on unit; pt continues to report concern that someone can try to kill me because of who I am and who my family is ; when asked why someone would hurt him. Pt stated, because we are well known in [place] and they may hurt me because of it ; pt unable to specify who they are. denies AH/VH. Pt was offered for staff member to examine restroom and stand outside to assure no one is waiting for him; however pt continues to decline. Patient stated, I feel like you guys are playing a psychotic game with me or that they are doing this for their entertainment . 04/02: Patient continues to present similar to days prior. He continues to report paranoia regarding using restroom, shower and eating. Pt stated, I urinated in the trash early in the morning ; he continues to state he will consider using restroom. Pt reports taking bites of breakfast this morning. denies any side effects from Zyprexa other than feeling tired; pt stated, I am feeling a bit calmer . Per nursing, pt slept in chair in [facility] for 7 hours last night. Will continue to build rapport. 04/03: Patient continues to report paranoia regarding using restroom, shower and eating. Pt was offered single room d/t continuous urinating in [facility]; pt declined. Pt stated, I don't think a single room would help. I'm still having the same thoughts . Pt reports he has increased his fluid intake with water, juice and milk; however he continues to report only take a few bites of food. 04/04: Discussed medications increases with pt which he refuses at this time. Focused on discharge, and where his belongings are being stored at this time. 04/05: Patient declined to meet with T/W in unit office; pt stated, I don't feel comfortable going into the office because I think someone would hurt me ; pt reassured no one would hurt him, however, he continued to decline. Met with pt in unit hallway. Patient reports he did not urinate yesterday; he was educated regarding medical complications that can occur with decreased intake of fluids and food. Pt stated, I know but it's not like I'm dying . Pt refused labs. Discussed various solutions of pt feeling safe to use restroom or shower. pt stated, I'm still worried someone is going to hurt me. I'm not sure who, but it's because I am along the lines of royalty and it's putting me in harms way if I use the bathroom, shower or eat . Pt reporting zyprexa is making him too tired ; plan to DC. start risperidal 1mg PO daily with plan to switch to PLAZA; discussed with pt. T/W spoke to patient's mother, Chio, who reports has not left the house in 2 years and has not bathed or used the restroom in a year. She expressed concern over his wellbeing of not drinking or eating. She plans on calling patient to encourage him increase fluid intake. 04/07: Pt continues similar to days prior. Pt reports he did not urinate yesterday. Refused labs again. Hearing was held today; Pt was commited. T/W informed pt of plan to increase risperidal. Pt to receive additional risperidal 1mg PO bedtime dose to night. Starting tomorrow, Increase: Risperidal 2mg PO bedtime. 04/08: Staying in common area, however, keeping to self. per nursing, pt urinated in multiple cups last evening in common area and declined to use restroom. Pt reports feeling frustrated about not being discharged ; T/W discussed plan with medications again. Pt requesting to be discharged home today; asking multiple staff. Pt continues to report paranoia regarding using toilet, shower, eating/drinking. Encouraged to allow labs. 04/10: No changes. Encourage ongoing med adherence especially for Risperdal. Also encourage elevating legs as per hospitalist evaluation on 04/06/2024. Ordering an extra large compression stockings. 04/11: Met with pt in unit office. Continues to stay in common areas. paranoid. Pt discussed paranoia regarding eating; pt stated, how do you know someone isn't trying to poison me? People in this hospital. Per nursing, ate 10% of one meal yesterday and 25% of one meal today, has not eaten anything otherwise. Patient continues to refuse labs; shower (pt reports he has not bathed himself since admission and refusing to change clothes). Declining to use bathroom. perseverating on discharge to go back home where I can continue doing these things and be more comfortable . Continues similar to days prior; ? possible cheeking, will switch to risperidal liquid. Increase dose to Risperidal 3mg PO bedtime. Wound consult ordered for bilateral legs 04/12: Met with pt in unit office. Continues to stay in common areas; declining to go into assigned room for any reason. He continues paranoid, anxious, fearful. Pt argumentative and requesting discharge since he has been able to meet with T/W in the unit office for the past 2 days. Discussed that pt does not allow for the door to be closed, continues with paranoia stating my safety is a concern if the door is closed . Declining bathroom and shower. Discussed change of medication to liquid d/t possible cheeking. 04/13: Pt continues paranoid, anxious, fearful. T/W and social media executive, Sabi, encouraged pt to walk into his room; lights were turned on to show no one was in the room and it was safe; however, pt continues to make paranoid statements of someone waiting to hurt him. Pt reports he did not urinate yesterday; discussed the importance of drinking fluids and eating meals. Per nursing, pt ate 5% of breakfast yesterday and declined lunch and dinner. Continue current tx plan. 04/14: Pt continues similar to days prior. Refusing to cross threshold into any room other than side office. Continues concerned that someone may hurt him if he goes into a room even if staff are with him. Per nursing, pt has not eaten or drank fluids today. He did urinate in trash can in the mileu and continues to refuse using restroom; despite having access to multiple bathrooms. Continue current tx plan. 04/15: T/W and RN attempting to reassure patient of his safety to be able to cross threshold into his room. Continues to believe someone may be hiding in the room to hurt him. Argumentative, attempting to change topic when asked questions about challenging his anxiety and paranoia. Per nursing, pt continues to have poor intake. Pt reports he did not urinate yesterday 04/17: No changes 04/18: Met with Dr. Lorenzana present. Pt continues to decline to go into bedroom or restroom; was willing to meet in side office with door open. He continues to discuss his anxiety and paranoia regarding being attacked by someone or snakes . Pt states he does not believe to have a mental illness ; requesting to be discharged home. Pt re-educated on goal of treatment. 04/19: Pt continues similar to days prior. Patient was given single room however pt continues to decline to enter room despite not having a room mate. He reports not urinating or having a bowel movement yesterday or today. Risperidal increased 4mg PO bedtime; pt aware. Labs ordered for tomorrow for monitoring of medical status while being treated with antipsychotics medications; informed consent obtained from guardian and patient is aware that informed consent was obtained. 04/20: pt continues to decline to enter his single room. Chair was placed between hallway and bedroom threshold; pt stated, I'm not going in there because I'm worried I might if I sit down . Continues with paranoid delusions. denies any side effects from increase in risperidal. encouraged to take Ativan to help with anxiety. Declined to go into his room to receive leg treatment. Declined to use restroom. 04/21: Continues with paranoid delusions; pt stated, I won't go in there because someone wants to kill me. I don't know who exactly. I know this from the narrative I hear and the symbolism I see on TV and commercial trucks . Declined to go into his room to receive leg treatment. Declined to use restroom. Eating/drinking minimally. Spoke with patient's mother and guardian, Chio, via phone. Reviewed current treatment plan and labs. 04/22: Patient continues similar to days prior. Continues with paranoid delusions; Declined to go into his room to receive leg treatment. Declined to use restroom. Eating/drinking minimally. Patient encouraged to challenge anxiety. 04/23 continue tx. 04/24 continue tx. increase risperidone to 6mg po qhs. 04/25: Continues paranoid and delusional. Refusing to go into room; pt stated, If I go in there I can be hurt with or without knowing ; when asked to elaborate, pt stated, they might hurt me, without me knowing I was hurt . Declining to use bathroom; observed to have distended abdomen, KUB ordered, pt was willing to have imaging done; awaiting results. Pt was willing to go into treatment room to use bath wipes and clean himself with RN present. Ordered Lactulose to assist with constipation; pt states he will consider taking this. 04/26: Continues paranoid and delusional. Refusing to go into room, bathroom or use commode in room; urinated in unit hallway. Refused Lactulose this morning despite encouragement. Continue current tx plan. 04/27: Continue current regimen and plans 04/28/24 Cont risp monitor response cont behavioral plan for helping re ability to lie down to enter a room encourage inc liquids latulose enema if needed 04/29: Keeping to self. urinated in trash bin in unit office. continues to refuse to go into bedroom or bathroom. offered commode and staff bathroom in unit hallway; however continues to decline. paranoid, delusional. Refusing lactulose despite education and no BM. 04/30: Continue current management and treatment plan. 05/01: Continue current management and treatment plan. 05/02: Keeping to self. Continues to refuse to enter bed room. He continues to report paranoia of someone trying to kill me if I go into the room ; pt encouraged to take one step over threshold, however, declined to do so; discussed increase in risperdal. Risperidal increased to 8mg PO bedtime. Patient reports having a bowel movement over the weekend but states he had the commode moved to door threshold so that his legs were outside the room. Patient reports he feels my paranoia is less but is unable to give examples of what has changed. Patient reports cold symptoms; allowed for covid/flu/rsv swab, which are negative; declined medication for cold symptoms. 05/03: Continues similar to days prior. paranoid. delusional. reviewed treatment plan with patient. continues to not use restroom, or enter room. continue current tx plan. 05/04/24- ongoing bizarre behavior and refusal to do ADLs independently 05/05: Pt states he feels something from med focused on discharge refusing to engage push againt behaviors that are self destructive 05/06: Lingering around nurses station today. Continues to refuse to enter bedroom or bathroom. Pt reports worry he may be killed if entering room; states he saw messages through the TV on [employer], but would not go into detail. Discussed changing medication to Haldol d/t Risperidal being ineffective in paranoid delusions. Decrease Risperidal to 4mg PO bedtime. Start: Haldol 5mg PO bedtime Ativan 0.5mg PO bedtime T/W and Dr. Lorenzana spoke to patients mother, Chio, discussed medications and treatment plan. Chio is aware of medication changes. 05/09: Continues to linger around nurses station today. Continues paranoid and delusional. Argumentative today. Refusing to elevate legs on chair despite swelling; pt stated, I don't want to elevate my legs because I don't want to . Per nursing, last BM was 05/06/24. Pt continues to decline to go into room or bathroom even though he understands this will allow him to challenge his anxiety/paranoid withl the hopes of being discharges home. Patient stated, I'm not going to play with fate by going into the bathroom. All of you providers are compromising my safety . pt denies side effects from medication changes. Risperidal decreased to 2mg PO bedtime. Haldol increased to 10mg PO bedtime; pt aware. Encouraged to take Ativan to help with increased anxiety. 05/10: Patient observed lingering around nurses station; was asked by nursing to move multiple times for patient confidentiality. He continues anxious, paranoid and grandiose; patient stated, I told you I am a targeted person. I am a Lillian. I do not understand why you would put me in dangers way and want me to use the bathroom . Patient continues to refuse to elevate legs; when asked why; patient stated, I want to see what happens ; patient educated regarding importance of elevating legs to decrease swelling. He was seen by hospitalist; please see note. Continue current treatment plan. 05/11: Patient continues similar to yesterday; anxious, paranoid, delusional, grandiose. Refusing leg care, elevate legs, lasix, teds; despite education from T/W and nursing. Per RN, pt had bowel movement but would not sit on commode, instead he removed bucket from commode and placed it on the floor in the bedroom door threshold and defecated while slightly bending at the knees. When done, pt went to pull up pants but was suggested to wipe self from RN and agreed to do so but would not wash hands afterwards. When T/W asked patient why he would not sit on commode; pt stated, you know my situation . DC risperidal. Increase Haldol to 15mg PO bedtime;pt aware. 05/12:anxious, paranoid, delusional, grandiose. Refusing leg care, elevate legs, lasix, teds; continued to be educated of importance. Pt stated, I'm not elevating my legs because they are not umcomfortable right now and I won't take the Lasix because I'm worried about losing too much water in my body. I won't take it . Continues to linger around nurses station; was asked by nursing to move away d/t pt confidentiality but would only take a step away for a short period before returning. T/W spoke to patient's mother, Chio, regarding treatment plan. 05/13: Patient is calmer today. Not argumentative. Patient reports he is considering taking a benzodiazapine to help with his anxiety. Continues to refuse leg care, elevate legs, lasix, teds; continued to be educated of importance. Continue current tx plan. 05/14 Patient remains with same presentation, standing in the milieu. Staff reports that patient is in the milieu day and night and does not go to his room. Strategic Communications Manager asked how he feels on the Haldol and patient says he is feeling cloudy and less clear minded. Discussed head stockings and patient said that he wanted to see how his legs did for a few days off of the test stockings but seem to understand the purpose for them and said he would put them back on eventually. 05/16: Keeping to self. anxious. paranoid. grandiose. delusional. Pt continues to believe he is a royal and someone can try to kill me while I'm in the rooms . Increase haldol to 20mg PO bedtime;pt aware. refusing to elevate legs, teds, leg care. T/W spoke with mother, Chio, regarding medication change. 05/17: Presents similar to days prior. Continues anxious, paranoid, grandiose, delusional. He reports increased anxiety but declines to take anti-anxiety medication. Continues to decline leg care or elevate legs; continues to be educated regarding importance of treatment. Pt focused on discharged; does not believe his behaviors or thoughts are impaired. per nursing, had BM yesterday while standing over commode bucket. Continue current tx plan. 05/18: Continues anxious, paranoid, grandiose, delusional. Continues to decline leg care or elevate legs; will continue to encourage patient to allow leg care, wear teds and elevate legs. Pt agreed to take Xanax 0.5mg PO yesterday to help with his anxiety; however he was not willing to enter room or bathroom d/t continued fear of being killed . continue tx plan. 05/19: Patient continues anxious, paranoid, grandiose, delusional. Continues to decline leg care or elevate legs; pt initially agreed but when RN approached pt, he declined to enter treatment room. Did not want to take anti-anxiety medication. He was willing to step fully into his bedroom with T/W for around 10 seconds and quickly stepped out; which is improvement. Haldol increased to 25mg PO bedtime; encouraged to take cogentin but declined. Time Spent With Patient Time: Total time managing care of this patient today ____ minutes.
--- NOTE | 2024-05-20 12:02 | P.DS_ITS ---
DS: Providers Provider Date of Service: 05/20/24 Date of admission: 03/25/24 20:56 Date of discharge: 05/20/24 Primary care physician: Unknown Physician Admitting clinician: Susan Elias Attending physician on admission: Ghulam Lorenzana Consults: 03/25/24 21:15 Consult to Hospitalist Routine Comment: Consulting Provider: [facility] Hospitalists Reason For Exam: OSH admission 04/01/24 16:02 Consult to Hospitalist Routine Comment: Consulting Provider: [facility] Hospitalists Reason For Exam: treatment of skin condition on arms/legs 04/11/24 15:05 Consult to Wound Care Routine Reason for consultation: bilateral leg wounds 05/10/24 15:41 Consult to Wound Care Routine Reason for consultation: follow up for stasis dermatitis and dry wound dressing Attending physician on discharge: Gautam Florentino Discharging clinician: Susan Elias DS: Diagnosis Discharge Diagnosis (1) Schizophrenia: Status: Acute (2) Lower extremity edema: Status: Acute DS: Medications Discharge Medications Home Medications: Home Medications ?Medication ?Instructions ?Recorded ?Confirmed No Known Home Meds 04/09/24 04/09/24 Data Imaging Diagnostic Imaging Impressions [facility] X-Ray 04/25/24 14:00 IMPRESSION: Large stool burden overall. Electronically signed by: Corin Escoto DO 04/25/2024 07:31 PM [facility] DS: Summary Status at Discharge Cognitive/behavioral status at discharge: Patient has insight and demonstrates good judgment in terms of wanting to pursue treatment. Patient has a safety plan that includes presenting to the closest ER or calling 911 if feeling unsafe. Functional status at discharge: independent ambulation Overall status at discharge: patient is progressing back to baseline Time Spent with Patient Time attestation: Total time managing care of this patient today ____ minutes. Discharge Plan Discharge Anticipated Discharge Date/Time: 05/20/24 15:00 Patient Disposition: Home, Self-Care Discharge Diagnosis: Schizophrenia Referrals: Physician,Jose J [Primary Care Provider] - 1 Week Discharge Medications: No Action No Known Home Meds Discharge Orders: Discharge Order (Routine); Ordered 05/20/24 Ordered By: Susan Elias Diet: Regular diet Activity on Discharge: As tolerated Stand Alone Forms: Patient Portal Discharge page Print Language: Slovak Care Plan Goals: Maintain mood and safe behaviors Take medications as prescribed Practice coping skills Continue with outpatient providers and reach out to them as needed Health Concerns: Mood stability and behaviors Follow up with PCP regarding leg edema Plan of Treatment: Follow up with your PCP, psychiatric provider and other outpatient providers regarding above concerns Take medications as prescribed Assessment: Patient has insight and demonstrates good judgment in terms of wanting to pursue treatment. Patient has a safety plan that includes presenting to the closest ER or calling 911 if feeling unsafe.
--- NOTE | 2024-05-20 13:38 | PM.EVENT ---
Event Note Date of Service: 05/20/24 Event Note: Pt is a 38-year-old male admitted [facility] with hospitalist consult placed for evaluation of possible antibiotic coverage for lower extremity erythema. Pt has been seen multiple times by hospitalist services patient's significant plaque psoriasis, which has greatly improved during his stay here. However pt has also had significant lower extremity swelling likely secondary to lymphedema. Pt has also been seen by wound care nurse multiple time, most recently evaluated yesterday on 05/19/2024. Pt seen and evaluated today where his legs are noted to be bilaterally erythematous, edematous, and weight superficial healing wound to left anterior asencio. Pt has been afebrile, and skin is without warmth. As pictured below. Erythema appears chronic and not secondary to cellulitis. Plan: No indication for antibiotics at this time. Pt should follow up outpatient with Dermatology for likely plaque psoriasis and vascular for likely lymphedema For treatment, would refer to wound care nurse recommendations: Recommend continuing with lower leg elevation, topical cream application and a dressing to the open area of the leg. After topical steroid application recommend durafiber AG application followed by dry gauze. If patient refuses Durafiber AG may cover with dry gauze for drainage absorption. Elevation will remain arriaga to decrease in swelling. Time Spent With Patient Time: Total time managing care of this patient today ____ minutes.
--- NOTE | 2024-05-20 14:01 | HO.PSYCHPN ---
Subjective Subjective Date of Service: 05/20/24 Reason For Visit: Schizophrenia Subjective Notes: Section 8 Interim History: Focused on being discharged. Allowed for leg care in treatment room yesterday. Patient reports feeling anxious and just want to go home ; discussed if he would be willing to challenge his delusion and go into the bathroom to see that he is safe. Pt agreed to do so if he would be allowed to discharge home and follow with his outpatient team. T/W agreed. Pt reports he plans on being medication and treatment compliant if he were to be discharged home and to continue working on his fear of using the bathroom. Pt walked into room and bathroom with T/W, manager social work, Sabi and RN, Gabriella present. Pt was able to urinate in toilet and wash hands in bathroom; he reported feeling excited but anxious at the same time while in the bathroom. Staff was encouraging and pt appeared happy for the first time since admission. T/W and manager social work, Sabi, spoke to patients mother, Chio, multiple times to inform her of discharge plan. 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 Medication Compliance: Intermittent Side effects from medications: No Attending Groups: No Mental Status Exam Mental Status Exam Narrative: Pt is alert and oriented; behavior is calm; dressed in hospital attire; malodorous, disheveled; mood is described as anxious ; affect mostly blunted; eye contact appropriate; Speech is normal rate, volume and not pressured; thought content with paranoid ideation; grandiose. focused on discharge. denies SI/HI. Insight and judgment are poor. Diagnostics Vital Signs (24Hr): Vital Signs - 24 hr 05/19/24 20:00 05/20/24 08:00 Temperature 98.5 F Pulse Rate 75 Respiratory Rate 18 Blood Pressure 101/56 L Pulse Oximetry 99 Oxygen Delivery Method Room Air BMI result Body Mass Index 28.5 Labs 04/20/24 08:23 04/20/24 08:23 Imaging Radiology Impressions: ITS Impressions KUB X-Ray 04/25/24 14:00 IMPRESSION: Large stool burden overall. Electronically signed by: Corin Escoto DO 04/25/2024 07:31 PM EST GENI Medications Medications Current Medications Acetaminophen (Acetaminophen 325 Mg Tablet) 650 mg PO Q6H PRN PRN Reason: Headache/Pain Mild Scale (1-3) Al Hydroxide/Mg Hydroxide (Magnesium Hydrox/Alum Hydrox 30 Ml Oral.Susp) 30 ml PO Q6H PRN PRN Reason: Heartburn/Nausea Alprazolam (Alprazolam 0.5 Mg Tablet) 0.5 mg PO BID PRN PRN Reason: Anxiety Benztropine Mesylate (Benztropine Mesylate 1 Mg Tablet) 1 mg PO DAILY PRN PRN Reason: Extrapyramidal Effects Betamethasone Dipropion Augmented (Betamethasone Dip Aug 0.05% Cr 15 Gm Tube) 1 appl TOPICAL BID LENI; Protocol Last Admin: 05/20/24 09:46 Dose: Not Given Furosemide (Furosemide 20 Mg Tablet) 20 mg PO DAILY LENI; Protocol Last Admin: 05/20/24 09:46 Dose: Not Given Haloperidol Lactate (Haloperidol Lactate 5 Mg/Ml Vial) 5 mg IM DAILY PRN PRN Reason: Psychosis Haloperidol Lactate (Haloperidol Lactate Oral Conc 10 Mg/5 Ml Oral.Conc) 25 mg PO BEDTIME LENI Last Admin: 05/19/24 20:35 Dose: 25 mg Hydroxyzine HCl (Hydroxyzine Hcl 25 Mg Tablet) 25 mg PO Q6H PRN PRN Reason: Anxiety Lactic Acid (Ammonium Lactate 12 % Cream 140 Gm Tube) 1 appl TOPICAL BID PRN; Protocol PRN Reason: Dry, scaly skin Last Admin: 04/18/24 20:53 Dose: 1 appl Lactic Acid (Ammonium Lactate 12 % Lotion 226 Gm Bottle) 1 appl TOPICAL DAILY LENI; Protocol Last Admin: 05/20/24 09:46 Dose: Not Given Lactulose (Lactulose 20 Gm/30 Ml Solution) 40 gm PO BID [facility] Last Admin: 05/20/24 09:47 Dose: Not Given Lorazepam (Lorazepam 0.5 Mg Tablet) 0.5 mg PO BEDTIME LENI Last Admin: 05/19/24 22:11 Dose: Not Given Magnesium Hydroxide (Milk Of Magnesia 30 Ml Oral.Susp) 30 ml PO DAILY PRN PRN Reason: Constipation Psyllium Hydrophilic Mucilloid (Psyllium Seed 3.7 Gm Packet) 3.7 gm PO DAILY LENI Last Admin: 05/20/24 09:47 Dose: Not Given Trazodone HCl (Trazodone Hcl 50 Mg Tablet) 50 mg PO BEDTIME MRX1 PRN PRN Reason: Insomnia Allergies Allergies Allergy/AdvReac Type Severity Reaction Status Date / Time Unable to Assess Allergy Verified 03/25/24 21:15 Assessment & Plan Assessment & Plan (1) Schizophrenia: Status: Acute Code(s): F20.9 - Schizophrenia, unspecified (2) Lower extremity edema: Status: Acute Code(s): R60.0 - Localized edema Plan 03/26: risperidone /. collateral from mother. clarify legal circumstance/rolando's order. 03/27: refusing meds, not leaving his chair. urinating in cup beneath blanket. requesting immediate discharge. continue to offer medication. clarify legal circumstance and ability to involuntarily administer medication. diamond warning provided. 03/28: Sitting in chair in milieu. Per nursing, patient urinating in cups under blankets. Patient was notified that he must go to his room to use the toilet and can not urinate in common areas. Patient was able to walk down unit hallway with no assistance. Patient is requesting to have a wheelchair d/t being terrified of falling . Patient stated, I do not have any kind of condition. I am just worried about falling . Patient reports that he has not been eating much due to fear of being poisoned however, he would not elaborate as to who he believes is poisoning him. He reports at home he has been urinating in milk cartons and defecating in trash bags and having his mother dispose of these items. Patient agreed to take 1 mg of Risperdal PO; however, expressed paranoia towards RN about being a different medication/dosage despite being shown packaging. T/W obtained information from patient's mother, Chio; Chio reports patient has not been using the toilet for the past two years due to being afraid that snakes will get him and voices telling him the same. Chio reports, pt is also afraid of walking d/t fear of hitting his head. She reports patient has never been on antipsychotics and has only taken anti-anxiety medications for 3 weeks which patient discontinued. She denies history of inpatient psychiatric hospitalizations. She reports having guardianship due to patient being unable to care for self. 03/29: Observing pacing unit hallway. Keeping to self. Covering self with blanket. Per nursing, pt slept in chair in milieu for 5 hours last night. Refused medications last night and this morning. Pt reports he does not want to sleep in a bed d/t feeling more vulnerable when laying down . Patient reports he does not want to go into the bathroom because he is paranoid that something might happen in there or someone might be waiting for me in there . Pt's 3 day up 03/30/24; he is requesting to be discharged home. 03/30: Observed standing at nurses station throughout shift; not taking redirection from staff to please step away for pt confidentiality. Argumentative. 3 day up today; filed on; pt notified. Pt stated, you can't keep me here. I'm going to jose you and make your head spin 3 times! Your documents are not real! Refused Zyprexa. Per nursing, pt urinated in carton in unit hallway;continues to refuse utilizing bathroom. Per nursing, pt did not eat anything today. 03/31: Pacing in front of nurses station. disheveled, malodorous; encouraged to shower, however pt declined despite being offered shower chair and staff member to wait outside shower room if assistance is needed. Per nursing, pt urinated in cup and sensory room floor last evening. Pt continues to report paranoia regarding using bathroom; pt stated, I'm worried someone will be in the bathroom waiting for me because of who I am . When asked why he believes someone would want to hurt him; pt stated, I can't discuss that . denies SI/HI/VH/AH. He reports not eating d/t concerns that he may be poisoned by someone ; observed drinking water from water bottle. Pt offered Zyprexa PO per court ordered treatment plan; per nursing, pt initially refused then agreed to take. 04/01: Patient continues to stand or pace in front of nurses station. disheveled, malodorous; per nursing, pt urinated in trash in mileu last evening. T/W spoke to patient regarding using restroom on unit; pt continues to report concern that someone can try to kill me because of who I am and who my family is ; when asked why someone would hurt him. Pt stated, because we are well known in [place] and they may hurt me because of it ; pt unable to specify who they are. denies AH/VH. Pt was offered for staff member to examine restroom and stand outside to assure no one is waiting for him; however pt continues to decline. Patient stated, I feel like you guys are playing a psychotic game with me or that they are doing this for their entertainment . 04/02: Patient continues to present similar to days prior. He continues to report paranoia regarding using restroom, shower and eating. Pt stated, I urinated in the trash early in the morning ; he continues to state he will consider using restroom. Pt reports taking bites of breakfast this morning. denies any side effects from Zyprexa other than feeling tired; pt stated, I am feeling a bit calmer . Per nursing, pt slept in chair in [facility] for 7 hours last night. Will continue to build rapport. 04/03: Patient continues to report paranoia regarding using restroom, shower and eating. Pt was offered single room d/t continuous urinating in [facility]; pt declined. Pt stated, I don't think a single room would help. I'm still having the same thoughts . Pt reports he has increased his fluid intake with water, juice and milk; however he continues to report only take a few bites of food. 04/04: Discussed medications increases with pt which he refuses at this time. Focused on discharge, and where his belongings are being stored at this time. 04/05: Patient declined to meet with T/W in unit office; pt stated, I don't feel comfortable going into the office because I think someone would hurt me ; pt reassured no one would hurt him, however, he continued to decline. Met with pt in unit hallway. Patient reports he did not urinate yesterday; he was educated regarding medical complications that can occur with decreased intake of fluids and food. Pt stated, I know but it's not like I'm dying . Pt refused labs. Discussed various solutions of pt feeling safe to use restroom or shower. pt stated, I'm still worried someone is going to hurt me. I'm not sure who, but it's because I am along the lines of royalty and it's putting me in harms way if I use the bathroom, shower or eat . Pt reporting zyprexa is making him too tired ; plan to DC. start risperidal 1mg PO daily with plan to switch to PLAZA; discussed with pt. T/W spoke to patient's mother, Chio, who reports has not left the house in 2 years and has not bathed or used the restroom in a year. She expressed concern over his wellbeing of not drinking or eating. She plans on calling patient to encourage him increase fluid intake. 04/07: Pt continues similar to days prior. Pt reports he did not urinate yesterday. Refused labs again. Hearing was held today; Pt was commited. T/W informed pt of plan to increase risperidal. Pt to receive additional risperidal 1mg PO bedtime dose to night. Starting tomorrow, Increase: Risperidal 2mg PO bedtime. 04/08: Staying in common area, however, keeping to self. per nursing, pt urinated in multiple cups last evening in common area and declined to use restroom. Pt reports feeling frustrated about not being discharged ; T/W discussed plan with medications again. Pt requesting to be discharged home today; asking multiple staff. Pt continues to report paranoia regarding using toilet, shower, eating/drinking. Encouraged to allow labs. 04/10: No changes. Encourage ongoing med adherence especially for Risperdal. Also encourage elevating legs as per hospitalist evaluation on 04/06/2024. Ordering an extra large compression stockings. 04/11: Met with pt in unit office. Continues to stay in common areas. paranoid. Pt discussed paranoia regarding eating; pt stated, how do you know someone isn't trying to poison me? People in this hospital. Per nursing, ate 10% of one meal yesterday and 25% of one meal today, has not eaten anything otherwise. Patient continues to refuse labs; shower (pt reports he has not bathed himself since admission and refusing to change clothes). Declining to use bathroom. perseverating on discharge to go back home where I can continue doing these things and be more comfortable . Continues similar to days prior; ? possible cheeking, will switch to risperidal liquid. Increase dose to Risperidal 3mg PO bedtime. Wound consult ordered for bilateral legs 04/12: Met with pt in unit office. Continues to stay in common areas; declining to go into assigned room for any reason. He continues paranoid, anxious, fearful. Pt argumentative and requesting discharge since he has been able to meet with T/W in the unit office for the past 2 days. Discussed that pt does not allow for the door to be closed, continues with paranoia stating my safety is a concern if the door is closed . Declining bathroom and shower. Discussed change of medication to liquid d/t possible cheeking. 04/13: Pt continues paranoid, anxious, fearful. T/W and manager social work, Sabi, encouraged pt to walk into his room; lights were turned on to show no one was in the room and it was safe; however, pt continues to make paranoid statements of someone waiting to hurt him. Pt reports he did not urinate yesterday; discussed the importance of drinking fluids and eating meals. Per nursing, pt ate 5% of breakfast yesterday and declined lunch and dinner. Continue current tx plan. 04/14: Pt continues similar to days prior. Refusing to cross threshold into any room other than side office. Continues concerned that someone may hurt him if he goes into a room even if staff are with him. Per nursing, pt has not eaten or drank fluids today. He did urinate in trash can in the mileu and continues to refuse using restroom; despite having access to multiple bathrooms. Continue current tx plan. 04/15: T/W and RN attempting to reassure patient of his safety to be able to cross threshold into his room. Continues to believe someone may be hiding in the room to hurt him. Argumentative, attempting to change topic when asked questions about challenging his anxiety and paranoia. Per nursing, pt continues to have poor intake. Pt reports he did not urinate yesterday 04/17: No changes 04/18: Met with Dr. Harriett shin. Pt continues to decline to go into bedroom or restroom; was willing to meet in side office with door open. He continues to discuss his anxiety and paranoia regarding being attacked by someone or snakes . Pt states he does not believe to have a mental illness ; requesting to be discharged home. Pt re-educated on goal of treatment. 04/19: Pt continues similar to days prior. Patient was given single room however pt continues to decline to enter room despite not having a room mate. He reports not urinating or having a bowel movement yesterday or today. Risperidal increased 4mg PO bedtime; pt aware. Labs ordered for tomorrow for monitoring of medical status while being treated with antipsychotics medications; informed consent obtained from guardian and patient is aware that informed consent was obtained. 04/20: pt continues to decline to enter his single room. Chair was placed between hallway and bedroom threshold; pt stated, I'm not going in there because I'm worried I might if I sit down . Continues with paranoid delusions. denies any side effects from increase in risperidal. encouraged to take Ativan to help with anxiety. Declined to go into his room to receive leg treatment. Declined to use restroom. 04/21: Continues with paranoid delusions; pt stated, I won't go in there because someone wants to kill me. I don't know who exactly. I know this from the narrative I hear and the symbolism I see on TV and commercial trucks . Declined to go into his room to receive leg treatment. Declined to use restroom. Eating/drinking minimally. Spoke with patient's mother and guardian, Chio, via phone. Reviewed current treatment plan and labs. 04/22: Patient continues similar to days prior. Continues with paranoid delusions; Declined to go into his room to receive leg treatment. Declined to use restroom. Eating/drinking minimally. Patient encouraged to challenge anxiety. 04/23 continue tx. 04/24 continue tx. increase risperidone to 6mg po qhs. 04/25: Continues paranoid and delusional. Refusing to go into room; pt stated, If I go in there I can be hurt with or without knowing ; when asked to elaborate, pt stated, they might hurt me, without me knowing I was hurt . Declining to use bathroom; observed to have distended abdomen, KUB ordered, pt was willing to have imaging done; awaiting results. Pt was willing to go into treatment room to use bath wipes and clean himself with RN present. Ordered Lactulose to assist with constipation; pt states he will consider taking this. 04/26: Continues paranoid and delusional. Refusing to go into room, bathroom or use commode in room; urinated in unit hallway. Refused Lactulose this morning despite encouragement. Continue current tx plan. 04/27: Continue current regimen and plans 04/28/24 Cont risp monitor response cont behavioral plan for helping re ability to lie down to enter a room encourage inc liquids latulose enema if needed 04/29: Keeping to self. urinated in trash bin in unit office. continues to refuse to go into bedroom or bathroom. offered commode and staff bathroom in unit hallway; however continues to decline. paranoid, delusional. Refusing lactulose despite education and no BM. 04/30: Continue current management and treatment plan. 05/01: Continue current management and treatment plan. 05/02: Keeping to self. Continues to refuse to enter bed room. He continues to report paranoia of someone trying to kill me if I go into the room ; pt encouraged to take one step over threshold, however, declined to do so; discussed increase in risperdal. Risperidal increased to 8mg PO bedtime. Patient reports having a bowel movement over the weekend but states he had the commode moved to door threshold so that his legs were outside the room. Patient reports he feels my paranoia is less but is unable to give examples of what has changed. Patient reports cold symptoms; allowed for covid/flu/rsv swab, which are negative; declined medication for cold symptoms. 05/03: Continues similar to days prior. paranoid. delusional. reviewed treatment plan with patient. continues to not use restroom, or enter room. continue current tx plan. 05/04/24- ongoing bizarre behavior and refusal to do ADLs independently 05/05: Pt states he feels something from med focused on discharge refusing to engage push againt behaviors that are self destructive 05/06: Lingering around nurses station today. Continues to refuse to enter bedroom or bathroom. Pt reports worry he may be killed if entering room; states he saw messages through the TV on [employer], but would not go into detail. Discussed changing medication to Haldol d/t Risperidal being ineffective in paranoid delusions. Decrease Risperidal to 4mg PO bedtime. Start: Haldol 5mg PO bedtime Ativan 0.5mg PO bedtime T/W and Dr. Lorenzana spoke to patients mother, Chio, discussed medications and treatment plan. Chio is aware of medication changes. 05/09: Continues to linger around nurses station today. Continues paranoid and delusional. Argumentative today. Refusing to elevate legs on chair despite swelling; pt stated, I don't want to elevate my legs because I don't want to . Per nursing, last BM was 05/06/24. Pt continues to decline to go into room or bathroom even though he understands this will allow him to challenge his anxiety/paranoid withl the hopes of being discharges home. Patient stated, I'm not going to play with fate by going into the bathroom. All of you providers are compromising my safety . pt denies side effects from medication changes. Risperidal decreased to 2mg PO bedtime. Haldol increased to 10mg PO bedtime; pt aware. Encouraged to take Ativan to help with increased anxiety. 05/10: Patient observed lingering around nurses station; was asked by nursing to move multiple times for patient confidentiality. He continues anxious, paranoid and grandiose; patient stated, I told you I am a targeted person. I am a [place]. I do not understand why you would put me in dangers way and want me to use the bathroom . Patient continues to refuse to elevate legs; when asked why; patient stated, I want to see what happens ; patient educated regarding importance of elevating legs to decrease swelling. He was seen by hospitalist; please see note. Continue current treatment plan. 05/11: Patient continues similar to yesterday; anxious, paranoid, delusional, grandiose. Refusing leg care, elevate legs, lasix, teds; despite education from T/W and nursing. Per RN, pt had bowel movement but would not sit on commode, instead he removed bucket from commode and placed it on the floor in the bedroom door threshold and defecated while slightly bending at the knees. When done, pt went to pull up pants but was suggested to wipe self from RN and agreed to do so but would not wash hands afterwards. When T/W asked patient why he would not sit on commode; pt stated, you know my situation . DC risperidal. Increase Haldol to 15mg PO bedtime;pt aware. 05/12:anxious, paranoid, delusional, grandiose. Refusing leg care, elevate legs, lasix, teds; continued to be educated of importance. Pt stated, I'm not elevating my legs because they are not umcomfortable right now and I won't take the Lasix because I'm worried about losing too much water in my body. I won't take it . Continues to linger around nurses station; was asked by nursing to move away d/t pt confidentiality but would only take a step away for a short period before returning. T/W spoke to patient's mother, Chio, regarding treatment plan. 05/13: Patient is calmer today. Not argumentative. Patient reports he is considering taking a benzodiazapine to help with his anxiety. Continues to refuse leg care, elevate legs, lasix, teds; continued to be educated of importance. Continue current tx plan. 05/14 Patient remains with same presentation, standing in the milieu. Staff reports that patient is in the milieu day and night and does not go to his room. Sales Administration Specialist asked how he feels on the Haldol and patient says he is feeling cloudy and less clear minded. Discussed head stockings and patient said that he wanted to see how his legs did for a few days off of the test stockings but seem to understand the purpose for them and said he would put them back on eventually. 05/16: Keeping to self. anxious. paranoid. grandiose. delusional. Pt continues to believe he is a royal and someone can try to kill me while I'm in the rooms . Increase haldol to 20mg PO bedtime;pt aware. refusing to elevate legs, teds, leg care. T/W spoke with mother, Chio, regarding medication change. 05/17: Presents similar to days prior. Continues anxious, paranoid, grandiose, delusional. He reports increased anxiety but declines to take anti-anxiety medication. Continues to decline leg care or elevate legs; continues to be educated regarding importance of treatment. Pt focused on discharged; does not believe his behaviors or thoughts are impaired. per nursing, had BM yesterday while standing over commode bucket. Continue current tx plan. 05/18: Continues anxious, paranoid, grandiose, delusional. Continues to decline leg care or elevate legs; will continue to encourage patient to allow leg care, wear teds and elevate legs. Pt agreed to take Xanax 0.5mg PO yesterday to help with his anxiety; however he was not willing to enter room or bathroom d/t continued fear of being killed . continue tx plan. 05/19: Patient continues anxious, paranoid, grandiose, delusional. Continues to decline leg care or elevate legs; pt initially agreed but when RN approached pt, he declined to enter treatment room. Did not want to take anti-anxiety medication. He was willing to step fully into his bedroom with T/W for around 10 seconds and quickly stepped out; which is improvement. Haldol increased to 25mg PO bedtime; encouraged to take cogentin but declined. 05/20: Focused on being discharged. Allowed for leg care in treatment room yesterday. Patient reports feeling anxious and just want to go home ; discussed if he would be willing to challenge his delusion and go into the bathroom to see that he is safe. Pt agreed to do so if he would be allowed to discharge home and follow with his outpatient team. T/W agreed. Pt reports he plans on being medication and treatment compliant if he were to be discharged home and to continue working on his fear of using the bathroom. Pt walked into room and bathroom with T/W, manager social workSabi and RN, Gabriella present. Pt was able to urinate in toilet and wash hands in bathroom; he reported feeling excited but anxious at the same time while in the bathroom. Staff was encouraging and pt appeared happy for the first time since admission. T/W and manager social work, Sabi, spoke to patients mother, Chio, multiple times to inform her of discharge plan. 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 Patient educated on: diagnosis, medication risk/benefits, therapeutic strategies and medical condition Guardian/Caregiver educated on: diagnosis, medication risk/benefits and medical condition Reason for continued inpatient stay Substantial Risk for: med/psych decompensation Time Spent With Patient Time: Total time managing care of this patient today _30___ minutes.
[2024-05-20 19:29] VITALS: BP 105/64; PULSE 82; TEMP 37.1; O2SAT 100
[2024-05-20] MEDS: Haloperidol Lactate Oral Conc 10 MG/5 ML ORAL.CONC 25 MG PO (22:13)
--- NOTE | 2024-05-23 08:57 | P.DS_ITS ---
DS: Providers Provider Date of Service: 05/20/24 Date of admission: 03/25/24 20:56 Date of discharge: 05/21/24 Primary care physician: Jose Physician Attending physician on admission: Gautam Florentino Consults: 03/25/24 21:15 Consult to Hospitalist Routine Comment: Consulting Provider: [facility] Hospitalists Reason For Exam: OSH admission 04/01/24 16:02 Consult to Hospitalist Routine Comment: Consulting Provider: [facility] Hospitalists Reason For Exam: treatment of skin condition on arms/legs 04/11/24 15:05 Consult to Wound Care Routine Reason for consultation: bilateral leg wounds 05/10/24 15:41 Consult to Wound Care Routine Reason for consultation: follow up for stasis dermatitis and dry wound dressing 05/20/24 13:15 Consult to Hospitalist Stat Comment: Consulting Provider: [facility] Hospitalists Reason For Exam: ? need for antibiotics for legs Attending physician on discharge: Gautam Florentino Discharging clinician: Susan Elias DS: Diagnosis Discharge Diagnosis (1) Schizophrenia: Status: Acute (2) Lower extremity edema: Status: Acute DS: Medications Discharge Medications Home Medications: Previous Rx's ?Medication ?Instructions ?Recorded ammonium lactate 12 % lotion 1 appl topical DAILY 30 days #225 05/20/24 grams ammonium lactate 12 % topical cream 1 appl topical BID PRN Dry, scaly 05/20/24 skin 30 days #140 grams benztropine 1 mg tablet 1 mg PO DAILY PRN Extrapyramidal 05/20/24 Effects 30 days #30 tabs betamethasone, augmented 0.05 % 1 appl topical BID 30 days #15 05/20/24 topical cream grams furosemide 20 mg tablet 20 mg PO DAILY 30 days #30 tabs 05/20/24 haloperidol 20 mg tablet 20 mg PO BEDTIME 30 days #30 tabs 05/20/24 lorazepam 0.5 mg tablet 0.5 mg PO BEDTIME 30 days #30 tabs 05/20/24 psyllium (Hydrocil Instant oral 1 packet PO DAILY 30 days #30 ea 05/20/24 packet) Mental Status Exam Mental Status Exam Narrative: Pt is alert and oriented; behavior is calm; dressed in hospital attire; malodorous, disheveled; mood is described as anxious ; affect mostly blunted; eye contact appropriate; Speech is normal rate, volume and not pressured; focus ed on discharge and outpatient treatment. denies SI/HI/VH/AH. Data Imaging Diagnostic Imaging Impressions KUB X-Ray 04/25/24 14:00 IMPRESSION: Large stool burden overall. Electronically signed by: Corin Escoto DO 04/25/2024 07:31 PM EST DS: Summary Hospital Course Hospital Course: per outside hospital psychiatric evaluation, pt presented to the hospital 03/17 for inability to care of self due to paranoia/mental illness. pt's mother is his legal guardian, collateral was collected from her. she reported pt has not bathed in over a year; he remains in a single room in the house, never leaving it; he will not use the bathroom but rather defecates in bags and urinates in containers that mother must remove from the room; very poor PO intake with substantial weight loss. pt reported to hospital staff that he eats and drinks little, that he has not showered in over a year; that he cleans himself with soap and wet paper towels; that he hears voices telling him he's being poisoned. he reported to hospital staff that he has not been eating much in the past couple of weeks due to fear of being poisoned; he reported he has not showered in the past year because he does not feel it is safe; he reported he takes medication at home despite collateral from his mother indicating otherwise. per report, pt had been prescribed risperidone in the ED from the but was noted to be diverting it; he was observed more closely at administration times thereafter and better compliance was believed to have taken place. on interview with , pt averred his fear of being poisoned, as well as his fear that something ill might befall him in the shower, as well as his fear that he might fall when walking. he expressed some concern about side effects from the risperidone, but also indicated a willingness to take it. he reported difficulty in taking pills and expressed interest in M-tabs or solution. he stated he did not wish to be in the hospital and voiced no small irritation at the fact of his admission. MD indicated risperidone would be prescribed for now. risperidone /2. collateral from mother. clarify legal circumstance/rolando's order. refusing meds, not leaving his chair. urinating in cup beneath blanket. requesting immediate discharge. continue to offer medication. clarify legal circumstance and ability to involuntarily administer medication. diamond warning provided. Sitting in chair in milieu. Per nursing, patient urinating in cups under blankets. Patient was notified that he must go to his room to use the toilet and can not urinate in common areas. Patient was able to walk down unit hallway with no assistance. Patient is requesting to have a wheelchair d/t being terrified of falling . Patient stated, I do not have any kind of condition. I am just worried about falling . Patient reports that he has not been eating much due to fear of being poisoned however, he would not elaborate as to who he believes is poisoning him. He reports at home he has been urinating in milk cartons and defecating in trash bags and having his mother dispose of these items. Patient agreed to take 1 mg of Risperdal PO; however, expressed paranoia towards RN about being a different medication/dosage despite being shown packaging. T/W obtained information from patient's mother, Chio; Chio reports patient has not been using the toilet for the past two years due to being afraid that snakes will get him and voices telling him the same. Chio reports, pt is also afraid of walking d/t fear of hitting his head. She reports patient has never been on antipsychotics and has only taken anti-anxiety medications for 3 weeks which patient discontinued. She denies history of inpatient psychiatric hospitalizations. She reports having guardianship due to patient being unable to care for self. Observing pacing unit hallway. Keeping to self. Covering self with blanket. Per nursing, pt slept in chair in milieu for 5 hours last night. Refused medications last night and this morning. Pt reports he does not want to sleep in a bed d/t feeling more vulnerable when laying down . Patient reports he does not want to go into the bathroom because he is paranoid that something might happen in there or someone might be waiting for me in there . Pt's 3 day up 03/30/24; he is requesting to be discharged home. Observed standing at nurses station throughout shift; not taking redirection from staff to please step away for pt confidentiality. Argumentative. 3 day up today; filed on; pt notified. Pt stated, you can't keep me here. I'm going to jose you and make your head spin 3 times! Your documents are not real! Refused Zyprexa. Per nursing, pt urinated in carton in unit hallway;continues to refuse utilizing bathroom. Per nursing, pt did not eat anything today. Pacing in front of nurses station. disheveled, malodorous; encouraged to shower, however pt declined despite being offered shower chair and staff member to wait outside shower room if assistance is needed. Per nursing, pt urinated in cup and sensory room floor last evening. Pt continues to report paranoia regarding using bathroom; pt stated, I'm worried someone will be in the bathroom waiting for me because of who I am . When asked why he believes someone would want to hurt him; pt stated, I can't discuss that . denies SI/HI/VH/AH. He reports not eating d/t concerns that he may be poisoned by someone ; observed drinking water from water bottle. Pt offered Zyprexa PO per court ordered treatment plan; per adonis perez, pt initially refused then agreed to take. Patient continues to stand or pace in front of nurses station. disheveled, malodorous; per nursing, pt urinated in trash in mil last evening. T/W spoke to patient regarding using restroom on unit; pt continues to report concern that someone can try to kill me because of who I am and who my family is ; when asked why someone would hurt him. Pt stated, because we are well known in [place] and they may hurt me because of it ; pt unable to specify who they are. denies AH/VH. Pt was offered for staff member to examine restroom and stand outside to assure no one is waiting for him; however pt continues to decline. Patient stated, I feel like you guys are playing a psychotic game with me or that they are doing this for their entertainment . He continues to report paranoia regarding using restroom, shower and eating. Pt stated, I urinated in the trash early in the morning ; he continues to state he will consider using restroom. Pt reports taking bites of breakfast this morning. denies any side effects from Zyprexa other than feeling tired; pt stated, I am feeling a bit calmer . Per nursing, pt slept in chair in [facility] for 7 hours last night. Will continue to build rapport. Patient continues to report paranoia regarding using restroom, shower and eating. Pt was offered single room d/t continuous urinating in [facility]; pt decl ined. Pt stated, I don't think a single room would help. I'm still having the same thoughts . Pt reports he has increased his fluid intake with water, juice and milk; however he continues to report only take a few bites of food. Patient declined to meet with T/W in unit office; pt stated, I don't feel comfortable going into the office because I think someone would hurt me ; pt reassured no one would hurt him, however, he continued to decline. Met with pt in unit hallway. Patient reports he did not urinate yesterday; he was educated regarding medical complications that can occur with decreased intake of fluids and food. Pt stated, I know but it's not like I'm dying . Pt refused labs. Discussed various solutions of pt feeling safe to use restroom or shower. pt stated, I'm still worried someone is going to hurt me. I'm not sure who, but it's because I am along the lines of royalty and it's putting me in harms way if I use the bathroom, shower or eat . Pt reporting zyprexa is making him too tired ; plan to DC. start risperidal 1mg PO daily with plan to switch to PLAZA; discussed with pt. T/W spoke to patient's mother, Chio, who reports has not left the house in 2 years and has not bathed or used the restroom in a year. She expressed concern over his wellbeing of not drinking or eating. She plans on calling patient to encourage him increase fluid intake. Pt reports he did not urinate yesterday. Refused labs again. Hearing was held today; Pt was commited. T/W informed pt of plan to increase risperidal. Pt to receive additional risperidal 1mg PO bedtime dose to night. Starting tomorrow, Increase: Risperidal 2mg PO bedtime. Staying in common area, however, keeping to self. per nursing, pt urinated in multiple cups last evening in common area and declined to use restroom. Pt reports feeling frustrated about not being discharged ; T/W discussed plan with medications again. Pt requesting to be discharged home today; asking multiple staff. Pt continues to report paranoia regarding using toilet, shower, eating/drinking. Encouraged to allow labs. encourage elevating legs as per hospitalist evaluation on 04/06/2024. Ordering an extra large compression stockings. Met with pt in unit office. Continues to stay in common areas. paranoid. Pt discussed paranoia regarding eating; pt stated, how do you know someone isn't trying to poison me? People in this hospital. Per nursing, ate 10% of one meal yesterday and 25% of one meal today, has not eaten anything otherwise. Patient continues to refuse labs; shower (pt reports he has not bathed himself since admission and refusing to change clothes). Declining to use bathroom. perseverating on discharge to go back home where I can continue doing these things and be more comfortable . Continues similar to days prior; ? possible cheeking, will switch to risperidal liquid. Increase dose to Risperidal 3mg PO bedtime. Wound consult ordered for bilateral legs Met with pt in unit office. Continues to stay in common areas; declining to go into assigned room for any reason. He continues paranoid, anxious, fearful. Pt argumentative and requesting discharge since he has been able to meet with T/W in the unit office for the past 2 days. Discussed that pt does not allow for the door to be closed, continues with paranoia stating my safety is a concern if the door is closed . Declining bathroom and shower. Discussed change of medication to liquid d/t possible cheeking. Pt continues paranoid, anxious, fearful. T/W and social worker clinical, Sabi, encouraged pt to walk into his room; lights were turned on to show no one was in the room and it was safe; however, pt continues to make paranoid statements of someone waiting to hurt him. Pt reports he did not urinate yesterday; discussed the importance of drinking fluids and eating meals. Per nursing, pt ate 5% of breakfast yesterday and declined lunch and dinner. Continue current tx plan. Refusing to cross threshold into any room other than side office. Continues concerned that someone may hurt him if he goes into a room even if staff are with him. Per nursing, pt has not eaten or drank fluids today. He did urinate in trash can in the mileu and continues to refuse using restroom; despite having access to multiple bathrooms. Continue current tx plan. T/W and RN attempting to reassure patient of his safety to be able to cross threshold into his room. Continues to believe someone may be hiding in the room to hurt him. Argumentative, attempting to change topic when asked questions about challenging his anxiety and paranoia. Per nursing, pt continues to have poor intake. Pt reports he did not urinate yesterday Pt continues to decline to go into bedroom or restroom; was willing to meet in side office with door open. He continues to discuss his anxiety and paranoia regarding being attacked by someone or snakes . Pt states he does not believe to have a mental illness ; requesting to be discharged home. Pt re-educated on goal of treatment. Patient was given single room however pt continues to decline to enter room despite not having a room mate. He reports not urinating or having a bowel movement yesterday or today. Risperidal increased 4mg PO bedtime; pt aware. Labs ordered for tomorrow for monitoring of medical status while being treated with antipsychotics medications; informed consent obtained from guardian and patient is aware that informed consent was obtained. pt continues to decline to enter his single room. Chair was placed between hallway and bedroom threshold; pt stated, I'm not going in there because I'm worried I might if I sit down . Continues with paranoid delusions. denies any side effects from increase in risperidal. encouraged to take Ativan to help with anxiety. Declined to go into his room to receive leg treatment. Declined to use restroom. Continues with paranoid delusions; pt stated, I won't go in there because someone wants to kill me. I don't know who exactly. I know this from the narrative I hear and the symbolism I see on TV and commercial trucks . Declined to go into his room to receive leg treatment. Declined to use restroom. Eating/drinking minimally. Spoke with patient's mother and guardian, Chio, via phone. Reviewed current treatment plan and labs. increase risperidone to 6mg po qhs. Continues paranoid and delusional. Refusing to go into room; pt stated, If I go in there I can be hurt with or without knowing ; when asked to elaborate, pt stated, they might hurt me, without me knowing I was hurt . Declining to use bathroom; observed to have distended abdomen, KUB ordered, pt was willing to have imaging done; awaiting results. Pt was willing to go into treatment room to use bath wipes and clean himself with RN present. Ordered Lactulose to assist wi th constipation; pt states he will consider taking this. Continues paranoid and delusional. Refusing to go into room, bathroom or use commode in room; urinated in unit hallway. Refused Lactulose this morning despite encouragement. Continue current tx plan. Cont risp monitor response cont behavioral plan for helping re ability to lie down to enter a room encourage inc liquids latulose enema if needed Keeping to self. urinated in trash bin in unit office. continues to refuse to go into bedroom or bathroom. offered commode and staff bathroom in unit hallway; however continues to decline. paranoid, delusional. Refusing lactulose despite education and no BM. Keeping to self. Continues to refuse to enter bed room. He continues to report paranoia of someone trying to kill me if I go into the room ; pt encouraged to take one step over threshold, however, declined to do so; discussed increase in risperdal. Risperidal increased to 8mg PO bedtime. Patient reports having a bowel movement over the weekend but states he had the commode moved to door threshold so that his legs were outside the room. Patient reports he feels my paranoia is less but is unable to give examples of what has changed. Patient reports cold symptoms; allowed for covid/flu/rsv swab, which are negative; declined medication for cold symptoms. Lingering around nurses station today. Continues to refuse to enter bedroom or bathroom. Pt reports worry he may be killed if entering room; states he saw messages through the TV on [place], but would not go into detail. Discussed changing medication to Haldol d/t Risperidal being ineffective in paranoid delusions. Decrease Risperidal to 4mg PO bedtime. Start: Haldol 5mg PO bedtime Ativan 0.5mg PO bedtime T/W and Dr. Lorenzana spoke to patients mother, Chio, discussed medications and treatment plan. Chio is aware of medication changes. Continues to linger around nurses station today. Continues paranoid and delusional. Argumentative today. Refusing to elevate legs on chair despite swelling; pt stated, I don't want to elevate my legs because I don't want to . Per nursing, last BM was 05/06/24. Pt continues to decline to go into room or bathroom even though he understands this will allow him to challenge his anxiety/paranoid withl the hopes of being discharges home. Patient stated, I'm not going to play with fate by going into the bathroom. All of you providers are compromising my safety . pt denies side effects from medication changes. Risperidal decreased to 2mg PO bedtime. Haldol increased to 10mg PO bedtime; pt aware. Encouraged to take Ativan to help with increased anxiety. Patient observed lingering around nurses station; was asked by nursing to move multiple times for patient confidentiality. He continues anxious, paranoid and grandiose; patient stated, I told you I am a targeted person. I am a [place]. I do not understand why you would put me in dangers way and want me to use the bathroom . Patient continues to refuse to elevate legs; when asked why; patient stated, I want to see what happens ; patient educated regarding importance of elevating legs to decrease swelling. He was seen by hospitalist; please see note. Continue current treatment plan. Patient continues similar to yesterday; anxious, paranoid, delusional, grandiose. Refusing leg care, elevate legs, lasix, teds; despite education from T/W and nursing. Per RN, pt had bowel movement but would not sit on commode, instead he removed bucket from commode and placed it on the floor in the bedroom door threshold and defecated while slightly bending at the knees. When done, pt went to pull up pants but was suggested to wipe self from RN and agreed to do so but would not wash hands afterwards. When T/W asked patient why he would not sit on commode; pt stated, you know my situation . DC risperidal. Increase Haldol to 15mg PO bedtime;pt aware. anxious, paranoid, delusional, grandiose. Refusing leg care, elevate legs, lasix, teds; continued to be educated of importance. Pt stated, I'm not elevating my legs because they are not umcomfortable right now and I won't take the Lasix because I'm worried about losing too much water in my body. I won't take it . Continues to linger around nurses station; was asked by nursing to move away d/t pt confidentiality but would only take a step away for a short period before returning. T/W spoke to patient's mother, Chio, regarding treatment plan. Patient is calmer today. Not argumentative. Patient reports he is considering taking a benzodiazapine to help with his anxiety. Continues to refuse leg care, elevate legs, lasix, teds; continued to be educated of importance. Continue current tx plan. Patient remains with same presentation, standing in the milieu. Staff reports that patient is in the milieu day and night and does not go to his room. [employer] In[employer] asked how he feels on the Haldol and patient says he is feeling cloudy and less clear minded. Discussed head stockings and patient said that he wanted to see how his legs did for a few days off of the test stockings but seem to understand the purpose for them and said he would put them back on eventually. Keeping to self. anxious. paranoid. grandiose. delusional. Pt continues to believe he is a royal and someone can try to kill me while I'm in the rooms . Increase haldol to 20mg PO bedtime;pt aware. refusing to elevate legs, teds, leg care. T/W spoke with mother, Chio, regarding medication change. Continues anxious, paranoid, grandiose, delusional. He reports increased anxiety but declines to take anti-anxiety medication. Continues to decline leg care or elevate legs; continues to be educated regarding importance of treatment. Pt focused on discharged; does not believe his behaviors or thoughts are impaired. per nursing, had BM yesterday while standing over commode bucket. Continue current tx plan. Continues anxious, paranoid, grandiose, delusional. Continues to decline leg care or elevate legs; will continue to encourage patient to allow leg care, wear teds and elevate legs. Pt agreed to take Xanax 0.5mg PO yesterday to help with his anxiety; however he was not willing to enter room or bathroom d/t continued fear of being killed . continue tx plan. Patient continues anxious, paranoid, grandiose, delusional. Continues to decline leg care or elevate legs; pt initially agreed but when RN approached pt, he declined to enter treatment room. Did not want to take anti-anxiety medication. He was willing to step fully into his bedroom with T/W for around 10 seconds and quickly stepped out; which is improvement. Haldol increased to 25mg PO bedtime; encouraged to take cogentin but declined. Focused on being discharged. Allowed for leg care in treatment room yesterday. Patient reports feeling anxious and just want to go home ; discussed if he would be willing to challenge his delusion and go into the bathroom to see that he is safe. Pt agreed to do so if he would be allowed to discharge home and follow with his outpatient team. T/W agreed. Pt reports he plans on being medication and treatment compliant if he were to be discharged home and to continue working on his fear of using the bathroom. Pt walked into room and bathroom with T/W, social worker clinicalSabi and RN, Gabriella present. Pt was able to urinate in toilet and wash hands in bathroom; he reported feeling excited but anxious at the same time while in the bathroom. Staff was encouraging and pt appeared happy for the first time since admission. T/W and social worker clinical, Sabi, spoke to patients mother, Chio, multiple times to inform her of discharge plan. Chio was agreeable and plans to burr picker patient on Thursday at noon. T/W reviewed medications with mother and she is requesting to have nursing staff review them again when she comes to burr picker patient; nursing aware. Status at Discharge Cognitive/behavioral status at discharge: Patient has insight and demonstrates good judgment in terms of wanting to pursue treatment. Patient has a safety plan that includes presenting to the closest ER or calling 911 if feeling unsafe. Functional status at discharge: independent ambulation Overall status at discharge: patient is progressing back to baseline Time Spent with Patient Time attestation: Total time managing care of this patient today _20___ minutes. Time spent: Less than 30 minutes Discharge Plan Discharge Anticipated Discharge Date/Time: 05/21/24 12:00 Patient Disposition: Home, Self-Care Discharge Diagnosis: Schizophrenia Referrals: [facility] [Provider Group] - 1 Week Discharge Medications: New betamethasone, augmented 0.05 % Cream 1 appl topical BID 30 Days Qty: 15 0RF Protocol: Apply to: Apply to: Scaly skin on arms and legs ammonium lactate 12 % Lotion 1 appl topical DAILY 30 Days Qty: 225 0RF Protocol: Apply to: Apply to: lower extremities bilateral ammonium lactate 12 % Cream 1 appl topical BID PRN (Reason: Dry, scaly skin) 30 Days Qty: 140 0RF Protocol: Apply to: Apply to: Thick yellow plaques on lower extremities Hydrocil Instant Packet 1 packet PO DAILY 30 Days Qty: 30 0RF furosemide 20 mg Tablet 20 mg PO DAILY 30 Days Qty: 30 0RF Protocol: Hold for SBP< HOLD for SBP < : 90 lorazepam 0.5 mg Tablet 0.5 mg PO BEDTIME 30 Days Qty: 30 0RF benztropine 1 mg Tablet 1 mg PO DAILY PRN (Reason: Extrapyramidal Effects) 30 Days Qty: 30 0RF haloperidol 20 mg tablet 20 mg PO BEDTIME 30 Days Qty: 30 0RF Discharge Orders: Discharge Order (Routine); Ordered 05/21/24 Ordered By: Susan Eilas Diet: Regular diet Activity on Discharge: As tolerated Stand Alone Forms: Patient Portal Discharge page, Community Support Print Language: Vietnamese Care Plan Goals: Maintain mood and safe behaviors Take medications as prescribed Practice coping skills Continue with outpatient providers and reach out to them as needed Health Concerns: Mood stability and behaviors Follow up with PCP regarding leg edema Plan of Treatment: Follow up with your PCP, psychiatric provider and other outpatient providers regarding above concerns Take medications as prescribed Assessment: Patient has insight and demonstrates good judgment in terms of wanting to pursue treatment. Patient has a safety plan that includes presenting to the closest ER or calling 911 if feeling unsafe. Discharge Date/Time: 05/21/24 13:40
== END 2024-05-21 13:40 | disposition home or self-care (01) | DRG 750 ==
PROVIDERS: Admitting Provider Psychiatry & Neurology Psychiatry; Responsible Provider Registered Nurse; Visit Provider Psychiatry & Neurology Psychiatry
DX: F20.9 Schizophrenia, unspecified (principal); I89.0 Lymphedema, not elsewhere classified; L40.0 Psoriasis vulgaris; Z20.822 Contact with and (suspected) exposure to COVID-19; Z79.899 Other long term (current) drug therapy
CPT/HCPCS: 0241U; 36415; 74018; 80053; 80061; 80342; 82607; 82746; 83036; 84443; 85025; 97163

== ENCOUNTER → 2024-03-25 20:56 | Outpatient (BNV) | payer OTHER, SELFPAY | PROVIDERS: Admitting Provider Psychiatry & Neurology Psychiatry; Responsible Provider Registered Nurse; Visit Provider Psychiatry & Neurology Psychiatry | DX: F20.0 Paranoid schizophrenia (principal) | CPT/HCPCS: 99231; 99232 ==

== ENCOUNTER → 2024-03-25 20:56 | Outpatient (BNV) | payer OTHER, SELFPAY | PROVIDERS: Admitting Provider Psychiatry & Neurology Psychiatry; Visit Provider Internal Medicine | DX: R23.4 Changes in skin texture (principal); R60.0 Localized edema; R53.1 Weakness | CPT/HCPCS: 99222; 99499 ==

== ENCOUNTER → 2024-03-25 20:56 | Outpatient (BNV) | payer OTHER, SELFPAY | PROVIDERS: Admitting Provider Psychiatry & Neurology Psychiatry; Visit Provider Psychiatry & Neurology Psychiatry | DX: F20.0 Paranoid schizophrenia (principal) | CPT/HCPCS: 90792; 99231; 99232 ==